=== PATIENT | female | born 1955 | race Caucasian/White ===

== ENCOUNTER 2023-03-29 13:54 | Outpatient (OUT) | payer MEDICARE, SELFPAY ==
--- NOTE | 2023-03-29 13:58 | MM_ITS ---
Patient: SHAUNA CHRISTENSEN Exam Date: 03/29/2023 : 1955 Gender:F Ordering : DR LASHA RODRIGUEZ Admission #: [id number] Family : Order #: [id number] CLICK HERE TO VIEW EXAM RADIOLOGY REPORT PROCEDURE: MM TOMOSYNTHESIS SCREENING BI COMPARISON: MG MAMM SCREEN 3D AMANDA CAD, 03/06/2022. MG MAMM SCREEN 3D AMANDA CAD, 01/21/2021. MG MAMM SCREEN AMANDA W CAD, 01/20/2020. MG MAMM AMANDA SCRN W CAD DIG, 09/29/2013. INDICATIONS: Screening Calculator Name NCI Breast Cancer Risk Assessment Tool 5 Year Breast Cancer Risk 3.60% Lifetime Breast Cancer Risk 10.90% Personal Breast Cancer No Personal Ovarian Cancer No Treatments None Family Cancers Mother with hodgkins cancer at age 34. LOCATION: [facility] BREAST COMPOSITION: Heterogeneously dense,which may obscure small masses. FINDINGS: DIAGNOSTIC CATEGORY 2--BENIGN FINDING: RIGHT BREAST: No significant suspicious finding. Scattered benign-appearing calcifications are present. No significant change has occurred. LEFT BREAST: No significant suspicious finding. Scattered benign-appearing calcifications are present. No significant change has occurred. RECOMMENDATIONS: ROUTINE MAMMOGRAM AND CLINICAL EVALUATION IN 12 MONTHS. PLEASE NOTE: A NORMAL MAMMOGRAM DOES NOT EXCLUDE THE POSSIBILITY OF BREAST CANCER. A CLINICALLY SUSPICIOUS PALPABLE LUMP SHOULD BE BIOPSIED. Dictated by: Philip Best M.D. on 04/02/2023 at 13:29 Approved by: Philip Best M.D. on 04/02/2023 at 13:35
== END 2023-03-29 13:55 | disposition home or self-care (01) ==
LOC: MAMMO 13:54
PROVIDERS: PCP Family Medicine; Visit Provider Family Medicine
DX: Z12.31 Encounter for screening mammogram for malignant neoplasm of breast (principal); Z80.7 Family history of other malignant neoplasms of lymphoid, hematopoietic and related tissues
CPT/HCPCS: 77063; 77067

== ENCOUNTER 2024-01-16 09:48 | Emergency (ER) | payer MEDICARE, SELFPAY ==
[2024-01-16 09:51] VITALS: BP 148/86; PULSE 65; TEMP 36.6; O2SAT 98; BMI 32.9
--- NOTE | 2024-01-16 09:56 | ED.GENADUL1 ---
HPI HPI - General Adult General Chief complaint: Skin/Abscess/Foreign Body Stated complaint: RASH Time Seen by Provider: 01/16/24 09:48 Source: patient Mode of arrival: walk-in Limitations: no limitations History of Present Illness HPI narrative: Patient presents to ED for swollen eyes and a rash on the face which is itchy. Patient states she was weeding over the weekend on Sunday afternoon and then Sunday night started to get itchy on the left hand and then face. When she woke up Sunday she noticed a little rash on her face and some redness and then today got more swollen. She went to urgent care and they were concerned because it was around her eyes so they sent over to the emergency room for further evaluation. She has no visual changes at all. She does have some periorbital swelling from a histamine response. They already treated her with IM Kenalog at the urgent care and then sent her here for evaluation. She did notice a little itching and swelling to the left upper lip today but no tongue swelling no posterior pharynx swelling. Patient does not wheezing. 98% on room air no acute distress Related Data Previous Rx's ?Medication ?Instructions ?Recorded prednisone 20 mg tablet 20 mg PO BID #20 tabs 01/16/24 Allergies Allergy/AdvReac Type Severity Reaction Status Date / Time No Known Drug Allergies Allergy Verified 01/16/24 09:56 Opioid HPI Opioid Management Most Recent Opioid Data: No Data to Display Review of Systems ROS Status of ROS 10 or more systems reviewed and unremarkable except as noted in history and below Exam Narrative Exam Narrative: General: alert, no acute distress Cardiovascular: regular rate and rhythm, normal peripheral perfusion. Respiratory: Lungs CTA, respirations non labored. Extremities: no deformity, no trauma. Neurological: oriented x 4, LOC appropriate for age. Periorbital edema bilaterally with erythema and itchiness to the skin. Small area of erythema to the left wrist and hand.Extraocular movements intact no vision changes Constitutional Vital Signs, click to edit/add: Last Vital Signs Temp 97.8 F 01/16/24 09:51 Pulse 65 01/16/24 09:51 Resp 16 01/16/24 09:51 BP 148/86 H 01/16/24 09:51 Pulse Ox 98 01/16/24 09:51 O2 Del Method Room Air 01/16/24 09:51 Course Vital Signs Vital signs: Vital Signs Temperature 97.8 F 01/16/24 09:51 Pulse Rate 65 01/16/24 09:51 Respiratory Rate 16 01/16/24 09:51 Blood Pressure 148/86 H 01/16/24 09:51 Pulse Oximetry 98 01/16/24 09:51 Oxygen Delivery Method Room Air 01/16/24 09:51 Temperature 97.8 F 01/16/24 09:51 Pulse Rate 65 01/16/24 09:51 Respiratory Rate 16 01/16/24 09:51 Blood Pressure 148/86 H 01/16/24 09:51 Pulse Oximetry 98 01/16/24 09:51 Oxygen Delivery Method Room Air 01/16/24 09:51 Medical Decision Making MDM Narrative Medical decision making narrative: Patient states her daughter thinks that they were weeding some poison prema so this could be poison prema exposure although it does not look like classic poison prema. She was exposed to something that gave her an allergic type response. I will send steroids to her pharmacy for a taper. Return to ED if worsening symptoms shortness of breath tongue swelling lip swelling or any further concerns. Patient comfortable care plan for home Differential Diagnosis Differential Diagnosis: Poison prema, poison oak, allergic reaction, contact dermatitis Discharge Plan Discharge Stand Alone Forms: Portal Instructions Chief Complaint: Skin/Abscess/Foreign Body Clinical Impression: Contact dermatitis Patient Disposition: Home, Self-Care Time of Disposition Decision: 10:00 Condition: Good Mode of Transportation: Private Vehicle Prescriptions / Home Meds: New prednisone 20 mg tablet 20 mg PO BID Qty: 20 0RF Rx Instructions: SEE TAPER: 60 mg po daily x 2 days 50 mg x 2 days 40 mg x 2 days 30 mg x 2 days 20 mg x 2 days 10 mg x 2 days Print Language: [place] Zealander Instructions: Contact Dermatitis (ED) Referrals: LASHA RODRIGUEZ [Primary Care Provider] - 1 week
--- NOTE | 2024-01-16 10:01 | PC.NURSE ---
pt did some weeding over the weekend -- sunday woke up with some itchy bilat hands and face. woke up this am with eyes both very itchy and swollen and red. UC sent her here for steroid.
--- OUTSIDE RECORDS SUMMARY | 2024-01-16 10:15 | XMS_ITS | CCD ---
Author Organization [facility] CliniSywy Care Team Providers Care Facility Environmental Technician Name Role Phone LynetteloPedro french DO Primary Care Provider Ramses ANTUNEZ, Gabo Muhammad Unavailable Mayank Velasquez MD, V. Attending Unavailable Mayank Velasquez MD, V. Admitting Unavailable JENNIFER, PEDRO Ayoub Primary Care Unavailable Taryn Dobson Unavailable AUGUSTIN VITAL Attending Unavailable AUGUSTIN VITAL Referring Unavailable JENNIFER, PEDRO HERNANDES Primary Care Unavailab le JENNIFER, PEDRO HERNANDES Primary Care Unavailab AUGUSTIN Lopes Attending Unavailable LYNETTELOKARISSA, PEDRO HERNANDES Primary Care Unavailab le JENNIFER, PEDRO HERNANDES Referring Unavailab le JENNIFER, PEDRO HERNANDES Primary Care Unavailab rossi VITAL, DR VILLANUEVA Consulting Unavailable LYNETTELOKARISSA, DR PEDRO Ayoub Primary Care Unavailable SEEMA, DR VILLANUEVA Attending Unavailable SEEMA, DR VILLANUEVA Admitting Unavailable CARLEE, WERNER Admitting Unavailable WERNER BEJARANO Attending Unavailable JENNIFER, DR PEDRO Ayoub Primary Care Unavailable EVA, DR MAYANK Castillo Consulting Unavailable CARLEEWERNER CHENEY Consulting Unavailable EVA, DR MAYANK Castillo Consulting Unavailable FURLONG, DR PEDRO Ayoub Primary Care Unavailable EVA, DR MAYANK Castillo Attending Unavailable EVA, DR MAYANK Castillo Admitting Unavailable FURLONG, DR PEDRO Ayoub Admitting Unavailable FURLONG, DR PEDRO Ayoub Attending Unavailable FURLOKARISSA, DR PEDRO Ayoub Primary Care Unavailable FURLONG, DR PEDRO Ayoub Consulting Unavailable FURLONG, DR PEDRO Ayoub Consulting Unavailable FURLONG, DR PEDRO Ayoub Primary Care Unavailable FURLONG, DR PEDRO Ayoub Attending Unavailable JENNIFER, DR PEDRO Ayoub Admitting Unavailable EVA, DR MAYANK Castillo Consulting Unavailable JENNIFER, DR PEDRO Ayoub Primary Care Unavailable EVA, DR MAYANK Castillo Attending Unavailable EVA, DR MAYANK Castillo Admitting Unavailable CARLEE, WERNER Admitting Unavailable CARLEE, WERNER Attending Unavailable FURLONG, DR PEDRO Ayoub Primary Care Unavailable BARRERA, ALTON Consulting Unavailable CARLEE, WERNER Consulting Unavailable WEST, DR MAYANK Castillo Consulting Unavailable FURLONG, DR PEDRO Ayoub Primary Care Unavailable WEST, DR MAYANK Castillo Attending Unavailable WEST, DR MAYANK Castillo Admitting Unavailable WEST, DR MAYANK Castillo Admitting Unavailable WEST, DR MAYANK Castillo Attending Unavailable FURLONG, DR PEDRO Ayoub Primary Care Unavailable WEST, DR MAYANK Castillo Consulting Unavailable ZIEBER, DR CANDICE Deluca Consulting Unavailable WEST, DR MAYANK Castillo Admitting Unavailable WEST, DR MAYANK Castillo Attending Unavailable FURLONG, DR PEDRO Ayoub Primary Care Unavailable WEST, DR MAYANK Castillo Consulting Unavailable WEST, DR MAYANK Castillo Admitting Unavailable WEST, DR MAYANK Castillo Attending Unavailable FURLONG, DR PEDRO Ayoub Primary Care Unavailable WEST, DR MAYANK Castillo Consulting Unavailable WEST, DR MAYANK Castillo Admitting Unavailable WEST, DR MAYANK Castillo Attending Unavailable FURLONG, DR PEDRO Ayoub Primary Care Unavailable WEST, DR MAYANK Castillo Consulting Unavailable ZIEBER, DR CANDICE Deluca Consulting Unavailable WEST, DR MAYANK Castillo Consulting Unavailable FURLONG, DR PEDRO Ayoub Primary Care Unavailable WEST, DR MAYANK Castillo Attending Unavailable WEST, DR MAYANK Castillo Admcarlos Unavailable ZIEBER, DR CANDICE Deluca Consulting Unavailable WEST, DR MAYANK Castillo Consulting Unavailable FURLONG, DR PEDRO Ayoub Primary Care Unavailable WEST, DR MAYANK Castillo Attending Unavailable WEST, DR MAYANK Castillo Admcarlos Unavailable WEST, DR MAYANK Castillo Consulting Unavailable FURLONG, DR PEDRO Ayoub Primary Care Unavailable WEST, DR MAYANK Castillo Attending Unavailable WEST, DR MAYANK Castillo Admcarlos Unavailable WEST, DR MAYANK Castillo Consulting Unavailable FURLONG, DR PEDRO Ayoub Primary Care Unavailable WEST, DR MAYANK Castillo Attending Unavailable WEST, DR MAYANK Castillo Admcarlos Unavailable WEST, DR MAYANK Castillo Admitting Unavailable WEST, DR MAYANK Castillo Attending Unavailable FURLONG, DR PEDRO Ayoub Primary Care Unavailable WEST, DR MAYANK Castillo Consulting Unavailable FURLONG, DR PEDRO Ayoub Admitting Unavailable FURLONG, DR PEDRO Ayoub Attending Unavailable FURLONG, DR PEDRO Ayoub Primary Care Unavailable FURLONG, DR PEDRO Ayoub Consulting Unavailable WEST, DR MAYANK Castillo Consulting Unavailable FURLONG, DR PEDRO Ayoub Primary Care Unavailable WEST, DR MAYANK Castillo Attending Unavailable WEST, DR MAYANK Castillo Admitting Unavailable ZIEBER, DR CANDICE Deluca Consulting Unavailable SCOTT Dobson Attending Provider [phone] Taryn Dobson Admitting Unavailable Taryn Dobson Attending Unavailable Taryn Dobson Attending Unavailable Taryn Dobson Admitting Unavailable Furlong Pedro MONROY Primary Care Provider [phone] Pedro Herrera MD Primary Care Provider JANELLE AUGUSTE Referring Unavailable FURLONG, PEDRO G Primary Care Unavailable FURLONG, PEDRO G Referring Unavailable FURLONG, PEDRO G Primary Care Unavailable FURLONG, PEDRO G Attending Unavailable FURLONG, PEDRO G Referring Unavailable FURLONG, PEDRO G Primary Care Unavailable FURLONG, PEDRO G Attending Unavailable FURLONG, PEDRO G Referring Unavailable FURLONG, PEDRO G Primary Care Unavailable JANELLE AUGUSTE Attending Unavailable FURLONG, PEDRO G Referring Unavailable FURLONG, PEDRO G Primary Care Unavailable TARYN BELL Attending Unavailable JR. VERA, KRISHNA Venegas Referring Unavaila ble TARYN BELL Attending Unavailable JR. VERA, KRISHNA Venegas Referring Unavaila ble TARYN BELL Attending Unavailable JR. VERA, KRISHNA Venegas Referring Unavaila ble TARYN BELL Attending Unavailable JR. VERA, KRISHNA Venegas Referring Unavaila ble TARYN BELL Attending Unavailable JR. VERA, KRISHNA Venegas Referring Unavaila ble JR. VERA, KRISHNA Venegas Attending Unavaila ble TARYN BELL Attending Unavailable JR. VERA, KRISHNA Venegas Referring Unavaila ble TARYN BELL Attending Unavailable JR. VERA, KRISHNA Venegas Referring Unavaila ble TARYN BELL Attending Unavailable JR. VERA, KRISHNA Venegas Referring Unavaila ble TOM HUERTA Attending Unavailable JR. VERA, KRISHNA Venegas Attending Unavaila ble TARYN BELL Attending Unavailable JR. VERA, KRISHNA Venegas Referring Unavaila ble JR. VERA, KRISHNA Venegas Attending Unavaila TARYN Islas Attending Unavailable JR. VERA, KRISHNA Venegas Referring Unavaila ble JR. VERA, KRISHNA Venegas Attending Unavaila ble TARYN BELL Attending Unavailable JR. VERA, KRISHNA Venegas Referring Unavaila ble Medications Current Medications Medication Drug Class(es) Dates Sig (Normalized) Sig (Original) aspirin 81 mg delayed release oral tablet (8 sources) Platelet Aggregation Inhibitor, Nonsteroidal Anti-inflammatory Drug take 1 tablet by mouth in the morning aspirin 81 MG EC tablet Take 81 mg by mouth in the morning. 0 Active take 81 mg by mouth once daily a spirin (ASPIR-81 ORAL) Take 81 mg by mouth once daily. 0 Active Comment on above: Take 81 mg by mouth once daily. atorvastatin 20 mg oral tablet (18 sources) HMG-CoA Reductase Inhibitor Start: take 20 mg by mouth once daily Atorvastatin Active 20 MG PO Daily January 16, 2024 12:00am Start: 04-17-2023 take 1 tablet by lovely th in the morning atorvastatin (LIPITOR) 20 mg tablet Take 1 tablet (20 mg total) by mouth in the morning. 90 tablet 3 04/17/2023 Active Start: 06-06-2022 take 1 tablet by lovely th in the morning atorvastatin (Lipitor) 10 MG tablet Take 1 tablet by mouth in the morning. 0 06/06/2022 Active Lipitor Active biotin 10 mg oral capsule (17 sources) biotin 10,000 mc g capsule 1 capsule. 0 Active biotin 29565 MCG tablet 1 capsule 1 (one) time each day at the same time. 0 Active Biotin Active Comment on above: 1 capsule. Calcium Carbonate (4 sources) Calcium Carbonat e (CALCIUM 600 PO) Take by mouth. 0 Active calcium citrate 950 mg oral tablet (13 sources) take 1 tablet by lovely th three times daily calcium citrate (CALCITRATE) 200 mg (950 mg) tablet Take 1 tablet (200 mg total) by mouth 3 (three) times a day. 0 Active Calcium Citrate Active Centrum Silver (5 sources) Centrum Silver A ctive cholecalciferol 0.25 mg oral capsule (12 sources) Vitamin D cholecalciferol (VITAMIN D3) 250 mcg (10,000 unit) capsule Take 1 capsule (10,000 Units total) by mouth. 0 Active take 1 capsule by mouth in the m orning cholecalciferol (Vitamin D-3) 350 MCG (80275 UT) capsule Take 14,000 Units by mouth in the morning. 0 Active Comment on above: Take 10,000 Units by mouth. ferrous sulfate 325 mg oral tablet (13 sources) Start: 01-16-2024 take 1 tablet by mouth once daily Ferrous Sulfate (Feosol) 325 mg (65 mg iron) tablet Active 325 MG PO Daily January 16, 2024 12:00am Start: 06-15-2022 take 1 tablet by lovely th at mealtime ferrous sulfate 325 (65 Fe) MG tablet Take 325 mg by mouth in the morning. Take with meals. 0 06/15/2022 Active Start: 06-15-2022 take 1 tablet by lovely th once daily at breakfast FEROSUL 325 mg (65 mg iron) tablet Take 1 tablet by mouth daily with breakfast. 0 06/15/2022 Active take 1 tablet by lovely th once daily at breakfast ferrous sulfate 325 (65 FE) mg EC tablet Take 1 tablet (325 mg total) by mouth daily with breakfast. 0 Active Comment on above: Take 1 tablet by lovely th daily with breakfast. Iron (5 sources) Iron Active levothyroxine sodium 0.05 mg oral tablet (20 sources) l-Thyroxine Start: take 50 ug by mouth once daily Levothyroxine Active 50 MCG PO Daily January 16, 2024 12:00am Start: 05-06-2022 End: 08-28-2023 take 1 tablet by mouth in the morning levothyroxine (SYNTHROID, LEVOTHROID) 50 MCG tablet TAKE 1 TABLET BY MOUTH IN THE MORNING 90 tablet 2 08/28/2023 Active Levothyroxine So dium Active metFORMIN hydrochloride 500 mg oral tablet (18 sources) Biguanide Start: 01-16-2024 take 500 mg by mouth once daily Metformin Active 500 MG PO Daily January 16, 2024 12:00am Start: 11-28-2022 take 1 tablet by lovely th once daily metFORMIN (GLUCOPHAGE) 500 mg tablet TAKE 1 TABLET BY MOUTH ONCE DAILY 90 tablet 3 06/14/2023 Active Start: 06-06-2022 metFORMIN (GLU COPHAGE) 500 mg tablet metFORMIN HCl Ac tive eiiebqoa-vhk-ZM-lycopen-lute in (CENTRUM SILVER) 0.4 mg-300 mcg- 250 mcg tablet (3 sources) mdqeaeck-hqf-BZ- lycopen-lutein (CENTRUM SILVER) 0.4 mg-300 mcg- 250 mcg tablet See Admin Instructions. 0 Active iwwepsdlzlvv-lihq-kbxcxdip-f liya c acid (Centrum Silver, geriatric,) tablet (4 sources) multivitamin-iro i-sibkngfr-brmm c acid (Centrum Silver, geriatric,) tablet as directed Orally 0 Active nitrofurantoin, macrocrystal s 25 mg / nitrofurantoin, monohydrate 75 mg oral capsule (7 sources) Nitrofuran Antibacterial S t a r t : 0 5 - 0 3 - 2 0 2 3 take 1 capsule by mouth every twelve hours Macrobid 100 MG 1 cap(s) Orally bid for 5 day(s) Apr, Active 24 hr oxybutynin chloride 15 mg extended release oral tablet (18 sources) Cholinergic Muscarinic Antagonist S t a r t : 0 8 - 1 4 - 2 0 2 4 take 15 mg by mouth once daily Oxybutynin Chloride Active 15 MG PO Daily January 16, 2024 12:00am Start: 10-20-2022 oxybutynin XL (DITROPAN XL) 15 mg 24 hr tablet TAKE 1 TABLET TWICE A DAY 180 tablet 3 10/20/2022 Active Start: 05-06-2022 oxybutynin ER (DITROPAN XL) 15 mg 24 hr Extended Rel Tab oxybutynin XL (D itropan-XL) 15 MG 24 hr tablet 1 (one) time each day at the same time. 0 Active oxyBUTYnin Activ e Oxybutynin Activ e vitamin b12 0.1 mg oral tablet (8 sources) Vitamin B12 take 1 tablet by mouth in the morning cyanocobalamin (VITAMIN B-12) 100 MCG tablet Take 1 tablet (100 mcg total) by mouth in the morning. 0 Active Comment on above: Take 100 mcg by mout h. Vitamin D3 (5 sources) Vitamin D3 Activ e Completed/Discontinued Medications Medication Drug Class(es) Dates Sig (Normalized) Sig (Original) azithromycin 250 mg oral tablet (5 sources) Macrolide Antimicrobial Start: 04-24-2022 Azithromycin 250 MG 2 tablet on the first day, then 1 tablet daily for 4 days Orally Once a day for 5 day(s) Apr, Not-Taking MV with Xkh-Dzhkirpy-Gfktmc (CENTRUM SILVER) 0.4 mg-300 mcg- 250 mcg tab (5 sources) MV with Jvy-Vhykfkno-Mnyo in (CENTRUM SILVER) 0.4 mg-300 mcg- 250 mcg tab See Admin Instructions. 0 Active Comment on above: See Admin Instructio ns. phenazopyridine hydrochloride 200 mg oral tablet (5 sources) Start: 10-04-2022 take 1 tablet by mouth every eight hours Pyridium 200 MG 1 tablet after meals Orally Three times a day for 2 day(s) October, Not-Taking predniSONE 20 mg oral tablet (5 sources) Start: 04-24-2022 take 1 tablet by mouth every twelve hours predniSONE 20 MG 1 tablet Orally 2 times a day for 5 day(s) Apr, Not-Taking Problems Active Problems Problem Classification Problem Date Documented Da te Episodic/Chronic Congestive heart failure; nonhypertensive (7 sources) Chronic diastolic heart failure; Translations: [Chronic diastolic (congestive) heart failure] Onset: 07-21-2015 04-13-2023 Chronic Deficiency and other anemia (5 sources) Iron deficiency anemia, unspecified; Translations: [Iron deficiency anemia, unspecified iron deficiency anemia type] Onset: 08-31-2022 Episodic Developmental disorders (1 source) Developmental articulation disorder; 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 Disorders of lipid metabolism (15 sources) Hyperlipidemia, unspecified; Translations: [Mixed hyperlipidemia] Onset: 08-25-2021 Chronic Essential hypertension (1 source) Hypertensive disorder Onset: 10-10-2023 Chronic Genitourinary symptoms and ill-defined conditions (14 sources) Urinary incontinence; Translations: [Unspecified urinary incontinence] Onset: 07-21-2015 02-07-2022 Chronic Genitourinary symptoms and ill-defined conditions (9 sources) Dysuria; Translations: [Hematuria, unspecified] Onset: 04-25-2023 Episodic Malaise and fatigue (11 sources) Fatigue; Translations: [Chronic fatigue, unspecified] Onset: 06-06-2017 04-13-2023 Chronic Malaise and fatigue (1 source) Fatigue; Translations: [Other fatigue] 06-19-2023 Episodic Menopausal disorders (7 sources) Primary ovarian failure; Translations: [Other primary ovarian failure] Onset: 01-19-2020 02-07-2022 Chronic Nutritional deficiencies (7 sources) Vitamin D deficiency; Translations: [Vitamin D deficiency, unspecified] Onset: 01-20-2016 02-07-2022 Chronic Osteoarthritis (20 sources) Unspecified osteoarthritis, unspecified site; Translations: [Arthritis of right knee] Onset: 01-17-2018 02-07-2022 Chronic Other acquired deformities (7 sources) Contracture of joint of right ankle; Translations: [Contracture, right ankle] Onset: 03-01-2020 02-07-2022 Chronic Other connective tissue disease (8 sources) History of total knee arthroplasty; Translations: [Presence of right artificial knee joint] Onset: 02-12-2023 04-13-2023 Chronic Other connective tissue disease (2 sources) History of right total knee replacement; Translations: [Presence of right artificial knee joint] 07-04-2023 Chronic Other diseases of veins and lymphatics (3 sources) Lymphedema; Translations: [Lymphedema, not elsewhere classified] Onset: 01-11-2023 01-11-2023 Chronic Other endocrine disorders (1 source) Diabetes insipidus; Translations: [Diabetes insipidus] 06-19-2023 Chronic Other endocrine disorders (2 sources) Diabetes insipidus; Translations: [Diabetes insipidus] Onset: 06-19-2023 Chronic Other inflammatory condition of skin (7 sources) Rosacea; Translations: [Rosacea, unspecified] Onset: 07-21-2015 02-07-2022 Chronic Other nervous system disorders (1 source) Poor concentration; Translations: [Attention and concentration deficit] 06-19-2023 Chronic Other nervous system disorders (7 sources) Mortons neuroma of right foot; Translations: [Lesion of plantar nerve, right lower limb] Onset: 12-18-2019 02-07-2022 Chronic Other nervous system disorders (7 sources) Difficulty walking; Translations: [Difficulty in walking, not elsewhere classified] Onset: 12-16-2020 02-07-2022 Chronic Other nutritional; endocrine; and metabolic disorders (7 sources) Insulin resistance; Translations: [Insulin resistance] Onset: 07-21-2015 02-07-2022 Chronic Other nutritional; endocrine; and metabolic disorders (3 sources) Hypocalcemia; Translations: [Hypocalcemia] Onset: 04-13-2023 04-13-2023 Chronic Other nutritional; endocrine; and metabolic disorders (7 sources) Body mass index 30+ - obesity; Translations: [Obesity, unspecified] Onset: 01-03-2023 04-13-2023 Chronic Residual codes; unclassified (7 sources) Obstructive sleep apnea syndrome; Translations: [Obstructive sleep apnea (adult) (pediatric)] Onset: 09-27-2017 02-07-2022 Chronic Residual codes; unclassified (1 source) Localized edema; Translations: [Localized edema] Onset: 10-10-2023 Episodic Thyroid disorders (9 sources) Hypothyroidism, unspecified; Translations: [Hypothyroidism] Onset: 02-01-2021 02-07-2022 Chronic Unclassified (1 source) brain fog. from surgery Onset: 06-19-2023 Urinary tract infections (5 sources) Urinary tract infection, site not specified; Translations: [Acute cystitis with hematuria] Episodic Past or Other Problems Problem Classification Problem Date Documented Da te Episodic/Chronic Deficiency and other anemia (10 sources) Iron deficiency anemia; Translations: [Iron deficiency anemia, unspecified] Onset: 1 Episodic Deficiency and other anemia (3 sources) Other iron deficiency anemias; Translations: [OTHER IRON DEFICIENCY ANEMIAS] Onset: 2 Episodic Diabetes mellitus without complication (15 sources) Prediabetes; Translations: [Hyperglycemia, unspecified] Onset: 1 02-07-2022 Episodic Fluid and electrolyte disorders (4 sources) Hyperosmolality and hypernatremia; Translations: [HYPEROSMOLALITY AND HYPERNATREMIA] Onset: 2 Episodic Mood disorders (3 sources) Mood disorders Onset: 4 06-19-2023 Other aftercare (4 sources) Long-term current use of insulin; 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] Onset: 9 01-03-2023 Episodic Other bone disease and musculoskeletal deformities (7 sources) Osteopenia; Translations: [Other specified disorders of bone density and structure, unspecified site] Onset: 1 02-07-2022 Episodic Other bone disease and musculoskeletal deformities (1 source) Other specified disorders of bone density and structure, unspecified site; Translations: [Other specified disorders of bone density and structure, unspecified site] Onset: 2 Episodic Other diseases of veins and lymphatics (7 sources) Peripheral venous insufficiency; Translations: [Venous insufficiency (chronic) (peripheral)] Onset: 6 02-07-2022 Episodic Other lower respiratory disease (4 sources) Dyspnea, unspecified; Translations: [DYSPNEA UNSPECIFIED] Onset: 2 Episodic Other non-traumatic joint disorders (9 sources) Pain in right knee; Translations: [Pain in joint, lower leg] Onset: 7 02-07-2022 Episodic Other non-traumatic joint disorders (7 sources) Pain in lower limb; Translations: [Pain in unspecified knee] Onset: 7 04-13-2023 Episodic Other screening for suspected conditions (not mental disorders or infectious disease) (4 sources) Encounter for screening mammogram for malignant neoplasm of breast; Translations: [ENC SCR MAMMO MALIG NEOPLASM BREAST] Onset: 2 Episodic Phlebitis; thrombophlebitis and thromboembolism (4 sources) Phlebitis and thrombophlebitis of superficial vessels of right lower extremity; Translations: [PHLEBITIS AND TP SUP VES RT LOW EXT] Onset: 2 Episodic Residual codes; unclassified (1 source) Family history of other malignant neoplasms of lymphoid, hematopoietic and related tissues; Translations: [FAM HX OTH MAL SHANIQUA LYMPH HEMATPOETC] Onset: 2 Episodic Residual codes; unclassified (7 sources) Edema of foot; Translations: [Localized edema] Onset: 1 02-07-2022 Episodic Residual codes; unclassified (7 sources) Persistent insomnia; Translations: [Insomnia, unspecified] Onset: 1 04-13-2023 Episodic Residual codes; unclassified (3 sources) Sleep disorder; Translations: [Sleep disorder, unspecified] Onset: 6 02-07-2022 Episodic Residual codes; unclassified (4 sources) Insomnia; Translations: [Insomnia, unspecified] Onset: 1 01-03-2023 Episodic Unclassified (3 sources) Onset: 3 04-13-2023 Varicose veins of lower extremity (4 sources) Varicose veins of bilateral lower extremities with pain; Translations: [VARICOSE VNS AMANDA LOW EXTREM W/PAIN] Onset: 2 Episodic Results Test Name Value Interpretation Reference Range Facility COMPLETE BLOOD COUNTon 10-09 Erythrocyte distribution width (RBC) [Ratio] 15.3 % High 11.5-15.0 [facility] Comment on above: Performed By: #### F EPR, CBC, HA1C #### [facility] ([id number]) [address] [place] [address] Hematocrit (Bld) [Volume fraction] 35.7 % Normal 35-47 [facility] Comment on above: Performed By: #### F EPR, CBC, HA1C #### [facility] ([id number]) [address], [facility] [address] [place] [address] Hemoglobin (Bld) [Mass/Vol] 11.9 g/dL Normal 11.7-15.5 [facility] Comment on above: Performed By: #### F EPR, CBC, HA1C #### [facility] ([id number]) [address], [facility] [address] [place] [address] MCH (RBC) [Entitic mass] 28.4 pg Normal 27-34 [facility] Comment on above: Performed By: #### F EPR, CBC, HA1C #### [facility] ([id number]) [address], [facility] [address] [place] [address] MCHC (RBC) [Mass/Vol] 33.3 g/dL Normal 32-36 [facility] Comment on above: Performed By: #### F EPR, CBC, HA1C #### [facility] ([id number]) [address], [facility] [address] [place] [address] MCV (RBC) [Entitic vol] 85 fL Normal 80-100 [facility] Comment on above: Performed By: #### F EPR, CBC, HA1C #### [facility] ([id number]) [address] [address] [place] [address] Platelet mean volume (Bld) [Entitic vol] 8.8 fL Normal 7-12 [facility] Comment on above: Performed By: #### F EPR, CBC, HA1C #### [facility] ([id number]) [address], [facility] [address] [place] [address] Platelets (Bld) [#/Vol] 312 10*3/uL Normal 150-450 [facility] Comment on above: Performed By: #### F EPR, CBC, HA1C #### [facility] ([id number]) [address], [address] [place] [address] RBC COUNT 4.20 X10E12/L Normal 3.80-5.20 [facility] Comment on above: Performed By: #### F EPR, CBC, HA1C #### [facility] ([id number]) [address], [address] [place] [address] WBC (Bld) [#/Vol] 5.0 10*3/uL Normal 4.0-11.0 [facility] Comment on above: Performed By: #### F EPR, CBC, HA1C #### [facility] ([id number]) [address], [address] [place] [address] COMPREHENSIVE METABOLIC PANE [place] 10-10-2023 Albumin [Mass/Vol] 4.0 g/dL Normal 3.2-5.3 [facility] Comment on above: Performed By: #### C PATRICE, [id number] #### [facility] ([id number]) [address], [address] [place] [address] ALP [Catalytic activity/Vol] 85 U/L Normal 39-130 [facility] Comment on above: Performed By: #### Rubi IBRAHIM, [id number] #### [facility] ([id number]) [address], [address] [place] [address] ALT [Catalytic activity/Vol] 20 U/L Normal 0-31 [facility] Comment on above: Performed By: #### Rubi IBRAHIM, [id number] #### [facility] ([id number]) [address], [address] [place] [address] Anion gap [Moles/Vol] 9 mmol/L Normal 5-15 [facility] Comment on above: Performed By: #### Rubi IBRAHIM, [id number] #### [facility] ([id number]) [address], [address] [place] [address] AST [Catalytic activity/Vol] 24 U/L Normal 0-41 [facility] [facility] Comment on above: Performed By: #### Rubi IBRAHIM, 73587-7 #### [facility] ([id number]) [address], [address] [place] [address] Bilirubin [Mass/Vol] 0.6 mg/dL Normal 0.3-1.2 [facility] Comment on above: Performed By: #### Rubi IBRAHIM, 24440-0 #### [facility] ([id number]) [address], [address] [place] [address] Calcium [Mass/Vol] 9.4 mg/dL Normal 8.5-10.5 [facility] Comment on above: Performed By: #### Rubi IBRAHIM, 83892-9 #### [facility] ([id number]) [address], [address] [place] [address] Chloride [Moles/Vol] 107 mmol/L Normal 98-109 [facility] Comment on above: Performed By: #### Rubi IBRAHIM, 40939-9 #### [facility] ([id number]) [address], [address] [place] [address] CO2 [Moles/Vol] 27 mmol/L Normal 22-32 [facility] Comment on above: Performed By: #### Rubi IBRAHIM, 17910-3 #### [facility] ([id number]) [address], [address] [place] [address] Creatinine [Mass/Vol] 0.80 mg/dL Normal 0.40-1.00 [facility] Comment on above: Result Comment: METH OD TRACEABLE TO IDMS STANDARD Performed By: #### Rubi IBRAHIM, 99571-2 #### [facility] ([id number]) [address] [place] [address] GFR/1.73 sq M.predicted among non-blacks MDRD (S/P/Bld) [Vol rate/Area] 80 mL/min/{1.73_m2} Normal >59 [facility] Comment on above: Result Comment: Reported eGFR is based on the CKD-EPI 2020 equation that does not use a race coefficient. Performed By: #### Rubi IBRAHIM, 81293-3 #### [facility] ([id number]) [address] [address] [place] [address] Glucose [Mass/Vol] 86 mg/dL Normal 65-99 [facility] Comment on above: Performed By: #### Rubi IBRAHIM, 65808-2 #### [facility] ([id number]) [address] [address] Potassium [Moles/Vol] 4.2 mmol/L Normal 3.5-5.0 [facility] Comment on above: Performed By: #### Rubi IBRAHIM, 28809-6 #### [facility] ([id number]) [address] [place] [address] Protein [Mass/Vol] 6.8 g/dL Normal 6.0-8.0 [facility] Comment on above: Performed By: #### Rubi IBRAHIM, 70014-2 #### [facility] ([id number]) [address] [place] [address] Sodium [Moles/Vol] 143 mmol/L Normal 134-146 [facility] Comment on above: Performed By: #### Rubi IBRAHIM, 87688-7 #### [facility] ([id number]) [address] [place] [address] Urea nitrogen [Mass/Vol] 17 mg/dL Normal 5-27 [facility] Comment on above: Performed By: #### Rubi IBRAHIM, 26049-5 #### [facility] ([id number]) [address] [place] [address] HGB A1C (GLYCO-HGB)on 2023 Glucose [Mass/Vol] 105 mg/dL Normal [facility] Comment on above: Performed By: #### F EPR, CBC, HA1C #### [facility] ([id number]) [address], [facility] [address] [place] [address] HbA1c (Bld) [Mass fraction] 5.3 % Normal 4.4-5.6 [facility] Comment on above: Result Comment: NOTE ADA Guidelines Result HgbA1c Normal : less than 5.7 % Prediabetes : 5.7 % to 6.4 % Diabetes : > 6.4 % Use with caution in patients with abnormal hemoglobin variants as the half-life of red blood cells and in vivo glycation rates are affected. Performed By: #### F EPR, CBC, HA1C #### [facility] ([id number]) [address] [address] IRON PROFILEon 10-10-2023 Iron [Mass/Vol] 27 ug/dL Low 50-170 [facility] Comment on above: Performed By: #### F EPR, CBC, HA1C #### [facility] ([id number]) [address], [facility] [address] [place] [address] IRON BINDING 395 ug/dL Normal 250-425 [facility] Comment on above: Performed By: #### F EPR, CBC, HA1C #### [facility] ([id number]) [address] [address] [place] [address] IRON SATURATION 7 % SATURATION Low 15-50 [facility] Comment on above: Performed By: #### F EPR, CBC, HA1C #### [facility] ([id number]) [address] [place] [address] Lipid 1996 panelon 05-08-202 4 Cholesterol [Mass/Vol] 129 mg/dL Low 150-200 [facility] Comment on above: Performed By: #### Rubi IBRAHIM, 73402-1 #### [facility] ([id number]) [address], [address] [address] Cholesterol in HDL [Mass/Vol] 50 mg/dL Normal >39 [facility] Comment on above: Result Comment: HDL <40 mg/dL - High Risk HDL > or = 40mg/dL- Desirable HDL >60 mg/dL - Negative Risk Performed By: #### Rubi IBRAHIM, 03992-4 #### [facility] ([id number]) [address] [address] Cholesterol in LDL [Mass/Vol] 55 mg/dL Normal <130 [facility] Comment on above: Result Comment: LDL <100 mg/dL - Desirable LDL >160 mg/dL - High Risk Performed By: #### Rubi IBRAHIM, 84573-8 #### [facility] ([id number]) [address], [address] [address] Cholesterol in VLDL [Mass/Vol] 24 mg/dL Normal 0-30 [facility] Comment on above: Performed By: #### Rubi IBRAHIM, 44250-6 #### [facility] ([id number]) [address] [address] CHOLESTEROL:HDL 2.6 Normal 1.0-5.0 [facility] Comment on above: Performed By: #### Rubi IBRAHIM, 42654-5 #### [facility] ([id number]) [address] [place] [address] Triglyceride [Mass/Vol] 122 mg/dL Normal 27-150 [facility] Comment on above: Performed By: #### C , 60073-8 #### [facility] ([id number]) [address], [address] [place] [address] BASIC METABOLIC PANLon 07-17 Anion gap [Moles/Vol] 7 mmol/L Normal 5-15 [facility] Comment on above: Performed By: #### 2 692-2, BMP #### [facility] ([id number]) [address] [place] [address] Calcium [Mass/Vol] 9.4 mg/dL Normal 8.5-10.5 [facility] Comment on above: Performed By: #### 2 692-2, BMP #### [facility] ([id number]) [address], [address] [place] [address] Chloride [Moles/Vol] 108 mmol/L Normal 98-109 [facility] Comment on above: Performed By: #### 2 692-2, BMP #### [facility] ([id number]) [address], [address] [place] [address] CO2 [Moles/Vol] 29 mmol/L Normal 22-32 [facility] Comment on above: Performed By: #### 2 692-2, BMP #### [facility] ([id number]) [address], [address] [place] [address] Creatinine [Mass/Vol] 0.75 mg/dL Normal 0.40-1.00 [facility] Comment on above: Result Comment: METH OD TRACEABLE TO IDMS STANDARD Performed By: #### 2 692-2, BMP #### [facility] ([id number]) [address], [address] [place] [address] GFR/1.73 sq M.predicted among non-blacks MDRD (S/P/Bld) [Vol rate/Area] 86 mL/min/{1.73_m2} Normal >59 [facility] Comment on above: Result Comment: Reported eGFR is based on the CKD-EPI 2020 equation that does not use a race coefficient. Performed By: #### 2 692-2, BMP #### [facility] ([id number]) [address], [address] [place] [address] Glucose [Mass/Vol] 81 mg/dL Normal 65-99 [facility] Comment on above: Performed By: #### 2 692-2, BMP #### [facility] ([id number]) [address], [address] [place] [address] Potassium [Moles/Vol] 4.0 mmol/L Normal 3.5-5.0 [facility] Comment on above: Performed By: #### 2 692-2, BMP #### [facility] ([id number]) [address], [address] [place] [address] Sodium [Moles/Vol] 144 mmol/L Normal 134-146 [facility] Comment on above: Performed By: #### 2 692-2, BMP #### [facility] ([id number]) [address], [address] [place] [address] Urea nitrogen [Mass/Vol] 26 mg/dL Normal 5-27 [facility] Comment on above: Performed By: #### 2 692-2, BMP #### [facility] ([id number]) [address], [address] [place] [address] Osmolality (U) [Osmolality]o n 07-17-2023 URINE OSMOLALITY 806 mOsm/kg H2 Normal 300-1300 [facility] Comment on above: Performed By: #### 2 695-5 #### [facility] ([id number]) [address], [address] [place] [address] Osmolality [Osmolality]on OSMOLALITY 304 mOsm/kg H2 High 280-300 [facility] Comment on above: Performed By: #### 2 692-2, [facility] #### [facility] ([id number]) [address] [facility], [address] [place] [address] URINALYSISon 07-17-2023 Bilirubin Ql (U) Negative Normal NEG [facility] BLOOD/HGB Negative Normal NEG [facility] CA OXALATE CRYSTALS PRESENT Abnormal NONE [facility] Color (U) YELLOW Normal YELLOW [facility] Glucose Ql (U) Negative Normal NEG [facility] Ketones Ql (U) Negative Normal NEG [facility] Leukocyte esterase Test strip Ql (U) Negative Normal NEG [facility] MUCOUS PRESENT Abnormal NONE [facility] Nitrite Ql (U) Negative Normal NEG [facility] pH (U) 6.0 [pH] Normal 5.0-8.5 [facility] Protein Ql (U) Trace Abnormal NEG [facility] R.B.CELLS 0 /hpf Normal 0-5 [facility] Specific gravity (U) [Rel density] 1.024 Normal 1.003-1.035 [facility] SQUAMOUS EPITHELIUM 1 /hpf Normal 0-5 [facility] TURBIDITY CLEAR Normal CLEAR [facility] Urobilinogen (U) [Mass/Vol] mg/dL Normal <1.1 [facility] W.B.CELLS 4 /hpf Normal 0-5 [facility] Urinalysis - AUTOMATEDon Appearance (U) cloudy [employer] Other Bilirubin Ql (U) Negative [employer] Other Color (U) dark yellow [employer] Other Glucose Ql (U) Negative [employer] Other Hemoglobin Ql (U) large [place] Other Ketones Ql (U) Negative [employer] Other Leukocyte esterase Test strip Ql (U) small [employer] Other Nitrite Ql (U) Negative [employer] Other pH (U) 6.5 [pH] [employer] Other Protein Ql (U) 100 [employer] Other Specific gravity (U) [Rel density] 1.025 [employer] Other Urobilinogen (U) [Mass/Vol] 0.2 mg/dL [employer] Other Urinalysis - AUTOMATED [employer] Other Urine Cultureon 04-25-2023 Urine Culture 50,000 [employer] Other Urine Culture <16 Susceptible [employer] Other Urine Culture <8/4 Susceptible [employer] Other Urine Culture <8 Susceptible [employer] Other Urine Culture <4 Susceptible [employer] Other Urine Culture <2 Susceptible [employer] Other Urine Culture <1 Susceptible [employer] Other Urine Culture <0.25 Susceptible [employer] Other Urine Culture <0.5 Susceptible [employer] Other Urine Culture <0.5/9.5 Susceptible [employer] Other Bacteria identified Cx Nom (U) Reason for Exam Dysuria Urine ORGANISM: Proteus mirabilis (O:PROMIR) [place] Count 50,000 Aerobic ANTONELLA Charge ([id number]) --- SUSCEPTIBILITY -- ORGANISM: O:PROMIR ANTIBIOTIC INTERPRETATION ANTONELLA Amikacin S <16 Amoxacillin/K Clavulanate S <8 Ampicillin S <8 Ampicillin/Sulbactam S <4 Aztreonam S <4 Cefazolin S <2 Cefepime S <2 Ceftazidime S <1 Ceftazidime/Avibactam S <4 Ceftolozane/Tazobactam S <2 Ceftriaxone S <1 Cefuroxime S <4 Ciprofloxacin S <0.25 Ertapenem S <0.5 Gentamicin S <2 Levofloxacin S <0.5 Meropenem S <1 Meropenem/Vaborbactam S <2 Piperacillin/Tazobacta m S <8 Tobramycin S <2 Trimethoprim/Sulfameth oxazole S <0.5 S = SUSCEPTIBLE I = INTERMEDIATE R = RESISTANT BLANK = DATA NOT AVAILABLE, OR DRUG NOT ADVISABLE OR TESTED R* = RESISTANCE DUE TO EXTENDED SPECTRUM BETA-LACTAMASES ESBL = EXTENDED SPECTRUM BETA-LACTAMASE TFG = THYMIDINE-DEPENDENT STRAIN LEIGHANN = BETA-LACTAMASE POSITIVE IB = INDUCIBLE BETA-LACTAMASE. APPEARS IN PLACE OF 'S' WITH SPECIES KNOWN TO POSSESS INDUCIBLE BETA-LACTAMASES. POTENTIALLY THEY MAY BECOME RESISTANT TO ALL B-LACTAM DRUGS. PERFORMED BY: [place] [address] PATHOLOGIST DRILL PRESS SET UP OPERATOR CHAO ARELLANO M.D. [facility] Comment on above: Performed By: #### C UU #### [facility] [address] [place] [address] CBC AUTO DIFFon 10-11-2022 BASO # 0.0 103/ul Normal 0.0-0.1 [facility] Comment on above: Performed By: #### C BC #### [facility] [address] [place] [address] Dr. Odilia Ceron Basophils/100 WBC (Bld) 0.4 % Normal 0.2-2.0 [facility] Comment on above: Performed By: #### C BC #### [facility] [address] [place] [address] Dr. Odilia Ceron EO # 0.1 103/ul Normal 0.0-0.7 [facility] Comment on above: Performed By: #### C BC #### [facility] [address] [place] [address] Dr. Odilia Ceron Eosinophils/100 WBC (Bld) 2.1 % Normal 0.9-7.0 [facility] Comment on above: Performed By: #### C BC #### [facility] [address] [place] [address] Dr. Odilia Ceron Erythrocyte distribution width (RBC) [Ratio] 15.3 % Critically high 11.0-15.0 [facility] Comment on above: Performed By: #### C BC #### [facility] [address] [place] [address] Dr. Odilia Ceron Hematocrit (Bld) [Volume fraction] 40.8 % Normal 36.0-48.0 [facility] Comment on above: Performed By: #### C BC #### [facility] [address] [place] [address] Dr. Odilia Ceron Hemoglobin (Bld) [Mass/Vol] 12.9 g/dL Normal 12.0-16.0 [facility] Comment on above: Performed By: #### C BC #### [facility] [address] [place] [address] Dr. Odilia Ceron IG # 0.02 10e3/ul Normal 0.00-0.03 [facility] Comment on above: Performed By: #### C BC #### [facility] [address] [place] [address] Dr. Odilia Ceron IG % 0.4 % Normal 0.0-0.5 [facility] Comment on above: Performed By: #### C BC #### [facility] [address] [place] [address] Dr. Odilia Ceron LYMPH # 1.8 103/ul Normal 1.2-3.8 [facility] Comment on above: Performed By: #### C BC #### [facility] [address] [place] [address] Dr. Odilia Ceron Lymphocytes/100 WBC (Bld) 38.1 % Normal 20.5-60.0 [facility] Comment on above: Performed By: #### C BC #### [facility] [address] [place] [address] Dr. Odilia Ceron MANUAL DIFF REQ NO Normal [facility] Comment on above: Performed By: #### C BC #### [facility] [address] [place] [address] Dr. Odilia Ceron MCH (RBC) [Entitic mass] 28.0 pg Normal 26.7-34.0 [facility] Comment on above: Performed By: #### C BC #### [facility] [address] [place] [address] Dr. Odilia Ceron MCHC (RBC) [Mass/Vol] 31.6 g/dL Normal 29.9-35.2 [facility] Comment on above: Performed By: #### C BC #### [facility] [address] [place] [address] Dr. Odilia Ceron MCV (RBC) [Entitic vol] 88.5 fL Normal 81.0-99.0 [facility] Comment on above: Performed By: #### C BC #### [facility] [address] [place] [address] Dr. Odilia Ceron MONO # 0.5 103/ul Normal 0.3-0.8 [facility] Comment on above: Performed By: #### C BC #### [facility] [address] [place] [address] Dr. Odilia Ceron Monocytes/100 WBC (Bld) 10.4 % Normal 1.7-12.0 [facility] Comment on above: Performed By: #### C BC #### [facility] [address] [place] [address] Dr. Odilia Ceron NEUT # 2.3 103/ul Normal 1.4-6.5 [facility] Comment on above: Performed By: #### C BC #### [facility] [address] [place] [address] Dr. Odilia Ceron Neutrophils/100 WBC (Bld) 48.6 % Normal 43.0-75.0 [facility] Comment on above: Performed By: #### C BC #### [facility] [address] [address] [address] Odilia Ceron Platelet mean volume (Bld) [Entitic vol] 10.1 fL Normal 9.5-13.5 [facility] Comment on above: Performed By: #### C BC #### [facility] [address] [address] [address] Odilia Ceron PLT 298 103/ul Normal 150-450 [facility] Comment on above: Performed By: #### C BC #### [facility] [address] [address] [address] Odilia Ceron RBC 4.61 106/ul Normal 4.20-5.40 [facility] Comment on above: Performed By: #### C BC #### [facility] [address] [address] [address] Odilia Ceron WBC 4.8 103/ul Normal 4.0-11.0 [facility] Comment on above: Performed By: #### C BC #### [facility] [address] [address] [address] Odilia Ceron FERRITINon 10-11-2022 Ferritin [Mass/Vol] 21.0 ng/mL Normal 8.0-252.0 [facility] Comment on above: Performed By: #### F ERR, FETIBC ####[facility] [id number] [address]Dr[address] Odilia Ceron IRON AND TIBCon 10-11-2022 % SATURATION 14.5 % Normal [facility] Comment on above: Performed By: #### F ERR, FETIBC ####[facility] [id number] [id number] Odilia Ceron Iron [Mass/Vol] 51.0 ug/dL Normal 50.0-170.0 [facility] Comment on above: Performed By: #### F ERR, FETIBC ####[facility] [address] [address]Dr. Odilia Ceron TIBC DIRECT 351.0 ug/dL Normal 250.0-450.0 [facility] Comment on above: Performed By: #### F ERR, FETIBC ####[facility] [address] [place], [place] [address]ZwNoemi Herman 10-09-2022 CNPN Telephone (HEMTSA) SHAUNA CHRISTENSEN ([id number]) 1955 F Date Time Provider Department 10/09/22 TABBY RAMÍREZ During your visit today, we recorded the following information about you: Tabby Ramírez RN 10/09/2022 4:12 PM Signed Patient states she does not see you until 01/04/23 but is just not feeling well. Would like to have some iron study lab work done. Would like to have that drawn at [facility]. If you place orders you would like, we can send to [facility]. Please review and advise. ' Thanks. JAI Grullon MD 10/09/2022 4:26 PM Signed Orders placed for CBC and iron studies. Thanks, Caitie Ramírez RN 10/09/2022 4:53 PM Signed PSS: Can you send the labs BRM ordered today to the [facility]. LMOV for patient to call the hospital first before heading over. Laury Oh Sec 10/10/2022 7:11 AM Signed Faxed to [facility] Tabby Ramírez RN 10/10/2022 11:27 AM Signed Thank you. Tabby Ramírez RN Allergies As of Date: 10/09/2022 (No Known Allergies) Date Reviewed: 06/22/2022 Reviewed by: Emily Ta MA - Fully Assessed Reason for Visit: Orders [681] Primary Visit Diagnosis:Iron deficiency anemia, unspecified iron deficiency anemia type [D50.9] Order(s):CBC + DIFF [SQCBCDIF] Order #: [id number] FUTURE IRON + TIBC [SQIRON] Order #: [id number] FUTURE FERRITIN BLD [SQFERR] Order #: [id number] FUTURE Prescriptions as of 10/10/2022 - aspirin (ASPIR-81 ORAL) Take 81 mg by mouth once daily. - atorvastatin (LIPITOR) 10 mg tablet - Biotin 10,000 mcg cap 1 capsule. - calcium citrate (CALCITRATE) 200 mg (950 mg) tab - Cholecalciferol, Vitamin D3, 250 mcg (10,000 unit) cap Take 10,000 Units by mouth. - cyanocobalamin (VITAMIN B-12) 100 mcg tab Take 100 mcg by mouth. - FEROSUL 325 mg (65 mg iron) tablet Take 1 tablet by mouth daily with breakfast. - SYNTHROID 50 mcg tablet - metFORMIN (GLUCOPHAGE) 500 mg tablet - MV with Lcd-Swzezmyx-Eoxphc (CENTRUM SILVER) 0.4 mg-300 mcg- 250 mcg tab See Admin Instructions. - oxybutynin ER (DITROPAN XL) 15 mg 24 hr Extended Rel Tab Problem List As Of Date: 10/09/2022 (None) Encounter Status:Closed by TABBY RAMÍREZ on 10/10/22 Normal [facility] Urinalysis - AUTOMATEDon Appearance (U) dark [employer] Other Bilirubin Ql (U) Negative [employer] Other Color (U) year [employer] Other Glucose Ql (U) Negative [employer] Other Hemoglobin Ql (U) large [place] Other Ketones Ql (U) Negative [employer] Other Leukocyte esterase Test strip Ql (U) large [employer] Other Nitrite Ql (U) Negative [employer] Other pH (U) 6.5 [pH] [employer] Other Protein Ql (U) >=300 mg/DL [email or web address] [facility] [employer] Other Specific gravity (U) [Rel density] 1.030 [employer] Other Urobilinogen (U) [Mass/Vol] 0.2 mg/dL [employer] Other Urinalysis - AUTOMATED [employer] Other Urine Cultureon 10-04-2022 Bacteria identified Cx Nom (U) 40,000 colonies/ml mixed bacterial skin contaminants 2 Days PERFORMED BY: [place] [address] PATHOLOGIST DRILL PRESS SET UP OPERATOR CHAO ARELLANO M.D. [facility] Comment on above: Performed By: #### C UU #### [address] Bacteria identified Cx Nom (U) [employer] Other CBC W Auto Differential pane l (Bld)on 08-31-2022 Basophils (Bld) [#/Vol] 0.03 10*3/uL Normal <0.11 [facility] Comment on above: Order Comment: Speci men Type: BLOOD SPECIMEN Ordering Facility: External Submitter Address: , , Performed By: #### 5 7021-8 #### [facility] CLIA [id number] [address] [place] [address] Basophils/100 WBC (Bld) 0.5 % Normal [facility] Comment on above: Order Comment: Speci men Type: BLOOD SPECIMEN Ordering Facility: External Submitter Address: , , Performed By: #### 5 7021-8 #### [facility] CLIA [id number] [address] [place] [address] Differential cell count method Nom (Bld) Auto Normal [facility] Comment on above: Order Comment: Speci men Type: BLOOD SPECIMEN Ordering Facility: External Submitter Address: , , Performed By: #### 5 7021-8 #### [facility] CLIA [id number] [address] [place] [address] Eosinophils (Bld) [#/Vol] 0.12 10*3/uL Normal <0.46 [facility] Comment on above: Order Comment: Speci men Type: BLOOD SPECIMEN Ordering Facility: External Submitter Address: , , Performed By: #### 5 7021-8 #### [facility] CLIA [id number] [address] [place] [address] Eosinophils/100 WBC (Bld) 1.9 % Normal [facility] Comment on above: Order Comment: Speci men Type: BLOOD SPECIMEN Ordering Facility: External Submitter Address: , , Performed By: #### 5 7021-8 #### [facility] CLIA [id number] [address] [place] [address] Erythrocyte distribution width (RBC) [Ratio] 14.6 % Normal 11.5-15.0 [facility] Comment on above: Order Comment: Speci men Type: BLOOD SPECIMEN Ordering Facility: External Submitter Address: , , Performed By: #### 5 7021-8 #### [facility] CLIA [id number] [address] [place] [address] Hematocrit (Bld) [Volume fraction] 39.1 % Normal 36.0-46.0 [facility] Comment on above: Order Comment: Speci men Type: BLOOD SPECIMEN Ordering Facility: External Submitter Address: , , Performed By: #### 5 7021-8 #### [facility] CLIA [id number] [address] [place] [address] 64460 Hemoglobin (Bld) [Mass/Vol] 12.7 g/dL Normal 11.5-15.5 [facility] Comment on above: Order Comment: Speci men Type: BLOOD SPECIMEN Ordering Facility: External Submitter Address: , , Performed By: #### 5 7021-8 #### [facility] CLIA [id number] [address] [place] [address] 98655 Immature granulocytes (Bld) [#/Vol] 0.03 10*3/uL Normal <0.10 [facility] Comment on above: Order Comment: Speci men Type: BLOOD SPECIMEN Ordering Facility: External Submitter Address: , , Performed By: #### 5 7021-8 #### [facility] CLIA [id number] [address] [place] [address] 76957 Immature granulocytes/100 WBC (Bld) 0.5 % Normal [facility] Comment on above: Order Comment: Speci men Type: BLOOD SPECIMEN Ordering Facility: External Submitter Address: , , Performed By: #### 5 7021-8 #### [facility] CLIA [id number] [address] [place] [address] 69133 Lymphocytes (Bld) [#/Vol] 2.59 10*3/uL Normal 1.00-4.00 [facility] Comment on above: Order Comment: Speci men Type: BLOOD SPECIMEN Ordering Facility: External Submitter Address: , , Performed By: #### 5 7021-8 #### [facility] CLIA [id number] [address] [place] [address] 31485 Lymphocytes/100 WBC (Bld) 41.4 % Normal [facility] Comment on above: Order Comment: Speci men Type: BLOOD SPECIMEN Ordering Facility: External Submitter Address: , , Performed By: #### 5 7021-8 #### [facility] CLIA [id number] [address] [place] [address] 33692 MCH (RBC) [Entitic mass] 27.9 pg Normal 26.0-34.0 [facility] Comment on above: Order Comment: Speci men Type: BLOOD SPECIMEN Ordering Facility: External Submitter Address: , , Performed By: #### 5 7021-8 #### [facility] CLIA [id number] [address] [place] [address] 14956 MCHC (RBC) [Mass/Vol] 32.5 g/dL Normal 30.5-36.0 [facility] Comment on above: Order Comment: Speci men Type: BLOOD SPECIMEN Ordering Facility: External Submitter Address: , , Performed By: #### 5 7021-8 #### [facility] CLIA [id number] [address] [place] [address] 22117 MCV (RBC) [Entitic vol] 85.7 fL Normal 80.0-100.0 [facility] Comment on above: Order Comment: Speci men Type: BLOOD SPECIMEN Ordering Facility: External Submitter Address: , , Performed By: #### 5 7021-8 #### [facility] CLIA [id number] [address] [place] [address] 68681 Monocytes (Bld) [#/Vol] 0.57 10*3/uL Normal <0.87 [facility] Comment on above: Order Comment: Speci men Type: BLOOD SPECIMEN Ordering Facility: External Submitter Address: , , Performed By: #### 5 7021-8 #### [facility] CLIA [id number] [address] [place] [address] 99260 Monocytes/100 WBC (Bld) 9.1 % Normal [facility] Comment on above: Order Comment: Speci men Type: BLOOD SPECIMEN Ordering Facility: External Submitter Address: , , Performed By: #### 5 7021-8 #### [facility] CLIA [id number] [address] [place] [address] 33086 Neutrophils (Bld) [#/Vol] 2.91 10*3/uL Normal 1.45-7.50 [facility] Comment on above: Order Comment: Speci men Type: BLOOD SPECIMEN Ordering Facility: External Submitter Address: , , Performed By: #### 5 7021-8 #### [facility] CLIA [id number] [address] [place] [address] 63598 Neutrophils/100 WBC (Bld) 46.6 % Normal [facility] Comment on above: Order Comment: Speci men Type: BLOOD SPECIMEN Ordering Facility: External Submitter Address: , , Performed By: #### 5 7021-8 #### [facility] CLIA [id number] [address] [place] [address] 86129 Nucleated RBC (Bld) [#/Vol] 10*3/uL Normal <0.01 [facility] Comment on above: Order Comment: Speci men Type: BLOOD SPECIMEN Ordering Facility: External Submitter Address: , , Performed By: #### 5 7021-8 #### [facility] CLIA [id number] [address] [place] [address] Nucleated RBC/100 WBC (Bld) [Ratio] 0.0 /100 WBC Normal [facility] Comment on above: Order Comment: Speci men Type: BLOOD SPECIMEN Ordering Facility: External Submitter Address: , , Performed By: #### 5 7021-8 #### [facility] CLIA [id number] [address] [place] [address] 67811 Platelet mean volume (Bld) [Entitic vol] 10.2 fL Normal 9.0-12.7 [facility] Comment on above: Order Comment: Speci men Type: BLOOD SPECIMEN Ordering Facility: External Submitter Address: , , Performed By: #### 5 7021-8 #### [facility] CLIA [id number] [address] [place] [address] 05225 Platelets (Bld) [#/Vol] 281 10*3/uL Normal 150-400 [facility] Comment on above: Order Comment: Speci men Type: BLOOD SPECIMEN Ordering Facility: External Submitter Address: , , Performed By: #### 5 7021-8 #### [facility] CLIA [id number] [address] [place] [address] 91936 RBC (Bld) [#/Vol] 4.56 10*6/uL Normal 3.90-5.20 [facility] Comment on above: Order Comment: Speci men Type: BLOOD SPECIMEN Ordering Facility: External Submitter Address: , , Performed By: #### 5 7021-8 #### [facility] CLIA [id number] [address] [place] [address] WBC (Bld) [#/Vol] 6.25 10*3/uL Normal 3.70-11.00 [facility] Comment on above: Order Comment: Speci men Type: BLOOD SPECIMEN Ordering Facility: External Submitter Address: , , Performed By: #### 5 7021-8 #### [facility] CLIA [id number] [address] [place] [address] 81519 CNOVSPon 08-31-2022 CNOVSP Visit (SP) Office ([place]) SHAUNA CHRISTENSEN ([id number]) 1955 F Date Time Provider Department 08/31/22 3:30 PM AUGUSTIN VITAL During your visit today, we recorded the following information about you: Temperature Pulse Respiration Blood pressure 97.1 degrees 75/minute 16/minute 139/73 Weight Height 85.7 kg 1.596 m Augustin Vital MD 08/31/2022 8:59 PM Signed PATIENT NAME: Shauna Christensen DATE: 08/31/2022 PRIMARY CARE PHYSICIAN: Pedro Herrera DO Portions of this encounter note have been copied from my note from 06/22/2022 and has been updated where appropriate, and reflect my current medical decision making from today. CC: This is a 67 year old female initially referred for evaluation of iron deficiency anemia, seen for scheduled follow-up. INTERIM HISTORY: At the patient's initial visit her stools for occult blood were negative. Since then she has remained on oral iron 1 daily, which she is. Since her initial visit she has had no medical changes. Overall she feels well with no complaints. No change in bowel habits or evidence of GI bleeding. MEDICATIONS: Current Outpatient Medications Medication Sig aspirin (ASPIR-81 ORAL) Take 81 mg by mouth once daily. atorvastatin (LIPITOR) 10 mg tablet Biotin 10,000 mcg cap 1 capsule. calcium citrate (CALCITRATE) 200 mg (950 mg) tab Cholecalciferol, Vitamin D3, 250 mcg (10,000 unit) cap Take 10,000 Units by mouth. cyanocobalamin (VITAMIN B-12) 100 mcg tab Take 100 mcg by mouth. (Patient not taking: No sig reported) FEROSUL 325 mg (65 mg iron) tablet Take 1 tablet by mouth daily with breakfast. SYNTHROID 50 mcg tablet metFORMIN (GLUCOPHAGE) 500 mg tablet MV with Lpl-Agypzijy-Zckyjs (CENTRUM SILVER) 0.4 mg-300 mcg- 250 mcg tab See Admin Instructions. oxybutynin ER (DITROPAN XL) 15 mg 24 hr Extended Rel Tab No current facility-administered medications for this visit. ALLERGIES: ALLERGIES No Known Allergies PAST MEDICAL HISTORY: PAST MEDICAL HISTORY Diagnosis Date Arthritis Chronic fatigue syndrome Hypothyroidism Insulin resistance Mixed hyperlipidemia Reddy's neuroma of right foot Obstructive sleep apnea Osteoarthritis of both knees Osteopenia Peripheral venous insufficiency Peripheral venous insufficiency Prediabetes Primary ovarian failure Rosacea Vitamin D deficiency PAST SURGICAL HISTORY: PAST SURGICAL HISTORY Procedure Laterality Date SNGL x2 PAST SURGICAL HISTORY OF Bilateral knee scraped PAST SURGICAL HISTORY OF Clogged duct removal in breast PKG EMP SCLEROTHERAPY/VERICOSE VEINS, MULTIPLE VEINS FAMILY HISTORY: FAMILY HISTORY Problem Relation Age of Onset Hodgkin Lymphoma Mother Leukemia Father SOCIAL HISTORY: Social History Tobacco Use Smoking status: Never Passive exposure: Never Smokeless tobacco: Never Substance Use Topics Alcohol use: Yes Comment: occasional Drug use: Not Currently COMPLETE REVIEW OF SYSTEMS: CONSTITUTION: Negative for pain, fatigue, weight loss, or appetite loss. EENT: Negative for mouth soreness, antibiotics use, epistaxis, visual problems, neck or facial swelling, fever/chills, bleeding gums, or hearing loss. CV: Negative for edema, calf swelling, palpitations, or chest pain. RESPIRATORY: Negative for cough, SOB, hemoptysis, or wheezing. GI: Negative for nausea/vomiting, heartburn, vomiting blood, dysphasia, diarrhea, blood in stool, constipation, early satiety, PICA, vegetarian, poor nutrition, abdominal fullness, or abdominal pain. NEUROLOGICAL: Negative for numbness/tingling, dizziness, gait disturbance, headache, speech disturbance, tremor, hemiparesis/sensory loss, or change in mental status. MUSCULOSKELETAL: Negative for joint pain, joint swelling, or proximal muscle weakness. SKIN: Negative for hair loss, bruising, nail changes, rash, itching, pallor, or jaundice. ENDO/URO: Negative for hot flashes, cold or heat intolerance, urinary frequency, urinary hesitancy, menorrhagia, or hematuria. PSYCH: Negative for anxiety, depression, or other. PHYSICAL EXAM: BP 139/73 Pulse 75 Temp 36.2 ?C (97.1 ?F) (Temporal) Resp 16 Ht 159.6 cm (5' 2.84 ) Wt 85.7 kg (189 lb) SpO2 99% BMI 33.66 kg/m? GENERAL EXAM: Well developed/well nourished; in no acute distress. SKIN: Negative for lesions, rashes, or ulcers on the upper and lower extremities and face. Negative for palpations/nodules, purpura, and ecchymosis. EENT: Negative for conjunctiva, mucosal pallor, JVD, LAP, thyromegaly, and glossitis. Supple AND PERRL. EXTREMITIES: Negative for cyanosis, clubbing, and crepitus. LUNGS: Negative to auscultation, respiratory effort, and percussion. CARDIOVASCULAR: Regular rate. Negative for murmurs/S3S4/abnormal sounds, edema, and carotid bruits. ABDOMEN: Negative for masses, hernia, and spleen/liver ab (more content not included)... Normal [facility] Comprehensive metabolic 2000 panelon 08-31-2022 Albumin [Mass/Vol] 4.4 g/dL Normal 3.9-4.9 [facility] Comment on above: Order Comment: Speci men Type: BLOOD SPECIMEN Ordering Facility: [facility] Address: [address] [address] Performed By: #### 2 4323-8 #### [facility] CLIA [id number] [address] [place] [address] 19694 ALP [Catalytic activity/Vol] 99 U/L Normal 34-123 [facility] Comment on above: Order Comment: Speci men Type: BLOOD SPECIMEN Ordering Facility: [facility] Address: [address] [address] Performed By: #### 2 4323-8 #### [facility] CLIA [id number] [address] [place] [address] 35371 ALT [Catalytic activity/Vol] 20 U/L Normal 7-38 [facility] Comment on above: Order Comment: Speci men Type: BLOOD SPECIMEN Ordering Facility: [facility] Address: [address] [address] Performed By: #### 2 4323-8 #### [facility] CLIA [id number] [address] [place] [address] 45301 Anion gap [Moles/Vol] 9 mmol/L Normal 9-18 [facility] Comment on above: Order Comment: Speci men Type: BLOOD SPECIMEN Ordering Facility: [facility] Address: [address] [address] Performed By: #### 2 432-8 #### [facility] CLIA [id number] [address] [place] [address] 03217 AST [Catalytic activity/Vol] 23 U/L Normal 13-35 [facility] Comment on above: Order Comment: Speci men Type: BLOOD SPECIMEN Ordering Facility: [facility] Address: [address] [address] Performed By: #### 2 4323-8 #### [facility] CLIA [id number] [address] [place] [address] 84265 Bilirubin [Mass/Vol] 0.4 mg/dL Normal 0.2-1.3 [facility] Comment on above: Order Comment: Speci men Type: BLOOD SPECIMEN Ordering Facility: [facility] Address: [address] Performed By: #### 2 4323-8 #### [facility] CLIA [id number] [address] [place] [address] 56709 Calcium [Mass/Vol] 9.9 mg/dL Normal 8.5-10.2 [facility] Comment on above: Order Comment: Speci men Type: BLOOD SPECIMEN Ordering Facility: [facility] Address: [address] [address] Performed By: #### 2 4323-8 #### [facility] CLIA [id number] [address] [place] [address] 11194 Chloride [Moles/Vol] 103 mmol/L Normal 97-105 [facility] Comment on above: Order Comment: Speci men Type: BLOOD SPECIMEN Ordering Facility: [facility] Address: [address] [address] Performed By: #### 2 4323-8 #### [facility] CLIA [id number] [address] [place] [address] 54423 CO2 [Moles/Vol] 28 mmol/L Normal 22-30 [facility] Comment on above: Order Comment: Speci men Type: BLOOD SPECIMEN Ordering Facility: [facility] Address: [address] [place] [address] Performed By: #### 2 4323-8 #### [facility] CLIA [id number] [address] [place], [place] [address] Creatinine [Mass/Vol] 0.95 mg/dL Normal 0.58-0.96 [facility] Comment on above: Order Comment: Speci men Type: BLOOD SPECIMEN Ordering Facility: [facility] Address: [address] [place] [address] Performed By: #### 2 4323-8 #### [facility] CLIA [id number] [address] [place], [place] [address] ESTIMATED GLOMERULAR FILTRATION RATE 65 mL/min/1.73m??? Normal >=60 [facility] Comment on above: Order Comment: Speci men Type: BLOOD SPECIMEN Ordering Facility: [facility] Address: [address] [place] [address] Result Comment: Kristal mated Glomerular Filtration Rate (eGFR) is calculated using the 2020 CKD-EPI creatinine equation. This equation utilizes serum creatinine, sex, and age as parameters. The creatinine assay has traceable calibration to isotope dilution-mass spectrometry. Refer to KDIGO guidelines for clinical interpretation. In patients with unstable renal function, e.g. those with acute kidney injury, the eGFR may not accurately reflect actual GFR. Performed By: #### 2 4323-8 #### [facility] CLIA [id number] [address] [place] [address] 41663 Glucose [Mass/Vol] 132 mg/dL High 74-99 [facility] Comment on above: Order Comment: Dior rabago Type: BLOOD SPECIMEN Ordering Facility: [facility] Address: [address] [place] [address] Result Comment: The [place] Diabetes [employer] (ADA) provides guidance for cutoff values for fasting glucose and random glucose. The ADA defines fasting as no caloric intake for at least 8 hours. Fasting plasma glucose results between 100 to 125 mg/dL indicate increased risk for diabetes (prediabetes). Fasting plasma glucose results greater than or equal to 126 mg/dL meet the criteria for diagnosis of diabetes. In the absence of unequivocal hyperglycemia, results should be confirmed by repeat testing. In a patient with classic symptoms of hyperglycemia or hyperglycemic crisis, random plasma glucose results greater than or equal to 200 mg/dL meet the criteria for diagnosis of diabetes. Reference: Standards of Medical Care in Diabetes 2016, [place] [employer]. Diabetes Care. 2016.39(Suppl 1). Performed By: #### 2 4323-8 #### [facility] CLIA [id number] [address] [place] [address] 94718 Potassium [Moles/Vol] 4.6 mmol/L Normal 3.7-5.1 [facility] Comment on above: Order Comment: Dior rabago Type: BLOOD SPECIMEN Ordering Facility: [facility] Address: [address] [place] [address] Performed By: #### 2 4323-8 #### [facility] CLIA [id number] [address] [place] [address] 99585 Protein [Mass/Vol] 7.2 g/dL Normal 6.3-8.0 [facility] Comment on above: Order Comment: Dior rabago Type: BLOOD SPECIMEN Ordering Facility: [facility] Address: [address] [place] [address] Performed By: #### 2 4323-8 #### [facility] CLIA [id number] [address] [place] [address] 76560 Sodium [Moles/Vol] 140 mmol/L Normal 136-144 [facility] Comment on above: Order Comment: Speci men Type: BLOOD SPECIMEN Ordering Facility: [facility] Address: [address] [id number] Performed By: #### 2 4323-8 #### [facility] CLIA [id number] [address] [place] [address] 66998 Urea nitrogen [Mass/Vol] 16 mg/dL Normal 7-21 [facility] Comment on above: Order Comment: Speci men Type: BLOOD SPECIMEN Ordering Facility: [facility] Address: [address] [id number] Performed By: #### 2 4323-8 #### [facility] CLIA [id number] [address] [place] [address] 42448 Albumin [Mass/Vol] 4.4 g/dL 3.9 - 4.9 g/dL [facility] ALP [Catalytic activity/Vol] 99 U/L 34 - 123 U/L [facility] ALT [Catalytic activity/Vol] 20 U/L 7 - 38 U/L [facility] Anion gap [Moles/Vol] 9 mmol/L 9 - 18 mmol/L [facility] AST [Catalytic activity/Vol] 23 U/L 13 - 35 U/L [facility] Bilirubin [Mass/Vol] 0.4 mg/dL 0.2 - 1.3 mg/dL [facility] Calcium [Mass/Vol] 9.9 mg/dL 8.5 - 10. 2 mg/dL [facility] Chloride [Moles/Vol] 103 mmol/L 97 - 105 mmol/L [facility] CO2 [Moles/Vol] 28 mmol/L 22 - 30 mmol/L [facility] Creatinine [Mass/Vol] 0.95 mg/dL 0.58 - 0.96 mg/dL [facility] Estimated Glomerular Filtration Rate 65 mL/min/1.73m >=60 mL/min/1.73m [facility] Glucose [Mass/Vol] 132 mg/dL High 74 - 99 mg/dL [facility] Potassium [Moles/Vol] 4.6 mmol/L 3.7 - 5.1 mmol/L [facility] Protein [Mass/Vol] 7.2 g/dL 6.3 - 8.0 g/dL [facility] Sodium [Moles/Vol] 140 mmol/L 136 - 144 mmol/L [facility] Urea nitrogen [Mass/Vol] 16 mg/dL 7 - 21 mg/dL [facility] Ferritin SerPl-mCncon 2022 Ferritin [Mass/Vol] 36.9 ng/mL Normal 14.7-205.1 [facility] Comment on above: Order Comment: Speci men Type: BLOOD SPECIMEN Ordering Facility: [facility] Address: [address] [address] Performed By: #### 5 0190-8, 2275-4 #### [facility] CLIA [id number] [address] [place] [address] [place] Iron and Iron binding capaci ty panel 08-31-2022 Iron [Mass/Vol] 61 ug/dL Normal 41-186 [facility] Comment on above: Order Comment: Speci men Type: BLOOD SPECIMEN Ordering Facility: [facility] Address: [address] Performed By: #### 5 0190-8, 2275-4 #### [facility] CLIA [id number] [address] [place] [address] [place] Iron binding capacity [Mass/Vol] 339 ug/dL Normal 232-386 [facility] Comment on above: Order Comment: Speci men Type: BLOOD SPECIMEN Ordering Facility: [facility] Address: [address] [place], [place] [address] Performed By: #### 5 0190-8, 2275-4 #### [facility] CLIA [id number] [address] [place] [address] [place] Iron/TIBC [Molar ratio] 18.0 % Normal 15.0-57.0 [facility] Comment on above: Order Comment: Speci men Type: BLOOD SPECIMEN Ordering Facility: [facility] Address: [address] [place], [place] [address] Performed By: #### 5 0190-8, 2276-4 #### [facility] CLIA [id number] [address] [place], [place] [address] [address] [place] Physical Therapy Noteon 03 Physical Therapy Note [id number] 07-25-2022 CNPN Telephone ([place]AS[place]) SHAUNA CHRISTENSEN ([id number]) 1955 F Date Time Provider Department 07/25/22 DOROTHY KHAN During your visit today, we recorded the following information about you: Dorothy Khan RN 07/25/2022 1:53 PM Signed ----- Message from Augustin Vital MD sent at 07/25/2022 12:49 PM EST ----- Please inform the patient her stools for occult blood are negative. If no signs of bleeding okay to hold off on scopes at this time. ThanksCaitie RN 07/25/2022 2:00 PM Signed Informed pt of Dr Vital's message. Pt verbalized understanding and denies further needs at this time. Dorothy Khan RN Allergies As of Date: 07/25/2022 (No Known Allergies) Date Reviewed: 06/22/2022 Reviewed by: Emily Ta MA - Fully Assessed Reason for Visit: Results [95] Prescriptions as of 07/25/2022 - aspirin (ASPIR-81 ORAL) Take 81 mg by mouth once daily. - atorvastatin (LIPITOR) 10 mg tablet - Biotin 10,000 mcg cap 1 capsule. - calcium citrate (CALCITRATE) 200 mg (950 mg) tab - Cholecalciferol, Vitamin D3, 250 mcg (10,000 unit) cap Take 10,000 Units by mouth. - cyanocobalamin (VITAMIN B-12) 100 mcg tab Take 100 mcg by mouth. - FEROSUL 325 mg (65 mg iron) tablet Take 1 tablet by mouth daily with breakfast. - SYNTHROID 50 mcg tablet - metFORMIN (GLUCOPHAGE) 500 mg tablet - MV with Oye-Wlpjktym-Rbfnml (CENTRUM SILVER) 0.4 mg-300 mcg- 250 mcg tab See Admin Instructions. - oxybutynin ER (DITROPAN XL) 15 mg 24 hr Extended Rel Tab Problem List As Of Date: 07/25/2022 (None) Encounter Status:Closed by DOROTHY KHAN on 07/25/22 Normal [facility] Hemoccult Stl Ql IAon 2022 Lower GI hemoglobin IA Ql (Stl) Negative Normal Negative [facility] Comment on above: Order Comment: Speci men Type: STOOL SPECIMEN Ordering Facility: [facility] Address: [address] [place] [address] Performed By: #### 2 9771-3 #### [facility] CLIA [id number] [address] [place] [address] OF [facility] 06-26-2022 CNPN Telephone ([place]) SHAUNA CHRISTENSEN ([id number]) 1955 F Date Time Provider Department 06/26/22 DOROTHY KHAN During your visit today, we recorded the following information about you: Dorothy Khan RN 06/26/2022 2:32 PM Signed ----- Message from Augustin Vital MD sent at 06/26/2022 12:04 PM EST ----- Please inform the patient that her iron levels are still a little low but overall improving. Her B12 level and other labs are normal. She should continue oral iron as planned. We will wait stools for occult blood, and if positive she should see GI for endoscopy. We will see her back as scheduled. Thanks, BRM Dorothy Khan RN 06/26/2022 2:54 PM Signed Informed pt of Dr Vital's message. Pt verbalized understanding and denies further needs at this time. Dorothy Khan RN Allergies As of Date: 06/26/2022 (No Known Allergies) Date Reviewed: 06/22/2022 Reviewed by: Emily Ta MA - Fully Assessed Reason for Visit: Results [95] Prescriptions as of 06/26/2022 - aspirin (ASPIR-81 ORAL) Take 81 mg by mouth once daily. - atorvastatin (LIPITOR) 10 mg tablet - Biotin 10,000 mcg cap 1 capsule. - calcium citrate (CALCITRATE) 200 mg (950 mg) tab - Cholecalciferol, Vitamin D3, 250 mcg (10,000 unit) cap Take 10,000 Units by mouth. - cyanocobalamin (VITAMIN B-12) 100 mcg tab Take 100 mcg by mouth. - FEROSUL 325 mg (65 mg iron) tablet Take 1 tablet by mouth daily with breakfast. - SYNTHROID 50 mcg tablet - metFORMIN (GLUCOPHAGE) 500 mg tablet - MV with Gad-Ydhbhvee-Nttkie (CENTRUM SILVER) 0.4 mg-300 mcg- 250 mcg tab See Admin Instructions. - oxybutynin ER (DITROPAN XL) 15 mg 24 hr Extended Rel Tab Problem List As Of Date: 06/26/2022 (None) Encounter Status:Closed by DOROTHY KHAN on 06/26/22 Normal [facility] CBC W Auto Differential pane l (Bld)on 06-22-2022 Basophils (Bld) [#/Vol] 0.03 10*3/uL Normal <0.11 [facility] Comment on above: Order Comment: Speci men Type: BLOOD SPECIMEN Ordering Facility: [facility] Address: [address] [place] [address] Performed By: #### 2 4323-8 #### [facility] CLIA [id number] [address] [place] [address]23 Basophils/100 WBC (Bld) 0.4 % Normal [facility] Comment on above: Order Comment: Speci men Type: BLOOD SPECIMEN Ordering Facility: [facility] Address: [address] [place] [address] Performed By: #### 2 4323-8 #### [facility] CLIA [id number] [address] [place] [address] 11043 Differential cell count method Nom (Bld) Auto Normal [facility] Comment on above: Order Comment: Speci men Type: BLOOD SPECIMEN Ordering Facility: [facility] Address: [address] [place] [address] Performed By: #### 2 4323-8 #### [facility] CLIA [id number] [address] [place] [address]323 Eosinophils (Bld) [#/Vol] 0.12 10*3/uL Normal <0.46 [facility] Comment on above: Order Comment: Speci men Type: BLOOD SPECIMEN Ordering Facility: [facility] Address: [address] [place] [address] Performed By: #### 2 4323-8 #### [facility] CLIA [id number] [address] [place] [address]01 Eosinophils/100 WBC (Bld) 1.7 % Normal [facility] Comment on above: Order Comment: Speci men Type: BLOOD SPECIMEN Ordering Facility: [facility] Address: [address] [place] [address] Performed By: #### 2 4323-8 #### [facility] CLIA [id number] [address] [place] [address] 20010 Erythrocyte distribution width (RBC) [Ratio] 16.6 % High 11.5-15.0 [facility] Comment on above: Order Comment: Speci men Type: BLOOD SPECIMEN Ordering Facility: [facility] Address: [address] [place] [address] Performed By: #### 2 4323-8 #### [facility] CLIA [id number] [address] [place] [address] 88058 Hematocrit (Bld) [Volume fraction] 35.3 % Low 36.0-46.0 [facility] Comment on above: Order Comment: Speci men Type: BLOOD SPECIMEN Ordering Facility: [facility] Address: [address] [place] [address] Performed By: #### 2 4323-8 #### [facility] CLIA [id number] [address] [place] [address] 92876 Hemoglobin (Bld) [Mass/Vol] 11.2 g/dL Low 11.5-15.5 [facility] Comment on above: Order Comment: Speci men Type: BLOOD SPECIMEN Ordering Facility: [facility] Address: [address] [place] [address] Performed By: #### 2 4323-8 #### [facility] CLIA [id number] [address] [place] [address] 33599 Immature granulocytes (Bld) [#/Vol] 10*3/uL Normal <0.10 [facility] Comment on above: Order Comment: Speci men Type: BLOOD SPECIMEN Ordering Facility: [facility] Address: [address] [place] [address] Performed By: #### 2 4323-8 #### [facility] CLIA [id number] [address] [place] [address] 84983 Immature granulocytes/100 WBC (Bld) 0.3 % Normal [facility] Comment on above: Order Comment: Speci men Type: BLOOD SPECIMEN Ordering Facility: [facility] Address: [address] [place] [address] Performed By: #### 2 4323-8 #### [facility] CLIA [id number] [address] [place] [address] 33510 Lymphocytes (Bld) [#/Vol] 3.03 10*3/uL Normal 1.00-4.00 [facility] Comment on above: Order Comment: Speci men Type: BLOOD SPECIMEN Ordering Facility: [facility] Address: [address] [place] [address] Performed By: #### 2 4323-8 #### [facility] CLIA [id number] [address] [place] [address] 74559 Lymphocytes/100 WBC (Bld) 42.6 % Normal [facility] Comment on above: Order Comment: Speci men Type: BLOOD SPECIMEN Ordering Facility: [facility] Address: [address] [place] [address] Performed By: #### 2 4323-8 #### [facility] CLIA [id number] [address] [place] [address] 12054 MCH (RBC) [Entitic mass] 26.8 pg Normal 26.0-34.0 [facility] Comment on above: Order Comment: Speci men Type: BLOOD SPECIMEN Ordering Facility: [facility] Address: [address] [place] [address] Performed By: #### 2 4323-8 #### [facility] CLIA [id number] [address] [place] [address] 61612 MCHC (RBC) [Mass/Vol] 31.7 g/dL Normal 30.5-36.0 [facility] Comment on above: Order Comment: Speci men Type: BLOOD SPECIMEN Ordering Facility: [facility] Address: [address] [place] [address] Performed By: #### 2 4323-8 #### [facility] CLIA [id number] [address] [place] [address] 92259 MCV (RBC) [Entitic vol] 84.4 fL Normal 80.0-100.0 [facility] Comment on above: Order Comment: Speci men Type: BLOOD SPECIMEN Ordering Facility: [facility] Address: [address] [place] [address] Performed By: #### 2 4323-8 #### [facility] CLIA [id number] [address] [place] [address] 19897 Monocytes (Bld) [#/Vol] 0.75 10*3/uL Normal <0.87 [facility] Comment on above: Order Comment: Speci men Type: BLOOD SPECIMEN Ordering Facility: [facility] Address: [address] [place] [address] Performed By: #### 2 4323-8 #### [facility] CLIA [id number] [address] [place] [address] Monocytes/100 WBC (Bld) 10.5 % Normal [facility] Comment on above: Order Comment: Speci men Type: BLOOD SPECIMEN Ordering Facility: [facility] Address: [address] [place] [address] Performed By: #### 2 4323-8 #### [facility] CLIA [id number] [address] [place] [address] 95834 Neutrophils (Bld) [#/Vol] 3.16 10*3/uL Normal 1.45-7.50 [facility] Comment on above: Order Comment: Speci men Type: BLOOD SPECIMEN Ordering Facility: [facility] Address: [address] [place] [address] Performed By: #### 2 4323-8 #### [facility] CLIA [id number] [address] [place] [address] 06119 Neutrophils/100 WBC (Bld) 44.5 % Normal [facility] Comment on above: Order Comment: Speci men Type: BLOOD SPECIMEN Ordering Facility: [facility] Address: [address] [place] [address] Performed By: #### 2 4323-8 #### [facility] CLIA [id number] [address] [place] [address] 06825 Nucleated RBC (Bld) [#/Vol] 10*3/uL Normal <0.01 [facility] Comment on above: Order Comment: Speci men Type: BLOOD SPECIMEN Ordering Facility: [facility] Address: [address] [place] [address] Performed By: #### 2 4323-8 #### [facility] CLIA [id number] [address] [place] [address] 45092 Nucleated RBC/100 WBC (Bld) [Ratio] 0.0 /100 WBC Normal [facility] Comment on above: Order Comment: Speci men Type: BLOOD SPECIMEN Ordering Facility: [facility] Address: [address] [place] [address] Performed By: #### 2 4323-8 #### [facility] CLIA [id number] [address] [place] [address] 27343 Platelet mean volume (Bld) [Entitic vol] 9.5 fL Normal 9.0-12.7 [facility] Comment on above: Order Comment: Speci men Type: BLOOD SPECIMEN Ordering Facility: [facility] Address: [address] [place] [address] Performed By: #### 2 4323-8 #### [facility] CLIA [id number] [address] [place] [address] 07619 Platelets (Bld) [#/Vol] 286 10*3/uL Normal 150-400 [facility] Comment on above: Order Comment: Speci men Type: BLOOD SPECIMEN Ordering Facility: [facility] Address: [address] [place] [address] Performed By: #### 2 4323-8 #### [facility] CLIA [id number] [address] [place] [address] 09425 RBC (Bld) [#/Vol] 4.18 10*6/uL Normal 3.90-5.20 [facility] Comment on above: Order Comment: Speci men Type: BLOOD SPECIMEN Ordering Facility: [facility] Address: [address] [place] [place] [address] Performed By: #### 2 4323-8 #### [facility] CLIA [id number] [address] [place] [address] 23398 WBC (Bld) [#/Vol] 7.11 10*3/uL Normal 3.70-11.00 [facility] Comment on above: Order Comment: Speci men Type: BLOOD SPECIMEN Ordering Facility: [facility] Address: [address] [place] [address] Performed By: #### 2 4323-8 #### [facility] CLIA [id number] [address] [place] [address] Basophils (Bld) [#/Vol] 0.03 10*3/uL <0.11 k/uL [facility] Basophils/100 WBC (Bld) 0.4 % [facility] Differential cell count method Nom (Bld) Auto [facility] Eosinophils (Bld) [#/Vol] 0.12 10*3/uL <0.46 k/uL [facility] Eosinophils/100 WBC (Bld) 1.7 % [facility] Erythrocyte distribution width (RBC) [Ratio] 16.6 % High 11.5 - 15.0 % [facility] Hematocrit (Bld) [Volume fraction] 35.3 % Low 36.0 - 46.0 % [facility] Hemoglobin (Bld) [Mass/Vol] 11.2 g/dL Low 11.5 - 15.5 g/dL [facility] Immature granulocytes (Bld) [#/Vol] <0.10 k/uL [facility] Immature granulocytes/100 WBC (Bld) 0.3 % [facility] Lymphocytes (Bld) [#/Vol] 3.03 10*3/uL 1.00 - 4.00 k/uL [facility] Lymphocytes/100 WBC (Bld) 42.6 % [facility] MCH (RBC) [Entitic mass] 26.8 pg 26.0 - 34.0 pg [facility] MCHC (RBC) [Mass/Vol] 31.7 g/dL 30.5 - 36.0 g/dL [facility] MCV (RBC) [Entitic vol] 84.4 fL 80.0 - 100.0 fL [facility] Monocytes (Bld) [#/Vol] 0.75 10*3/uL <0.87 k/uL [facility] Monocytes/100 WBC (Bld) 10.5 % [facility] Neutrophils (Bld) [#/Vol] 3.16 10*3/uL 1.45 - 7.50 k/uL [facility] Neutrophils/100 WBC (Bld) 44.5 % [facility] Nucleated RBC (Bld) [#/Vol] <0.01 k/uL [facility] Nucleated RBC/100 WBC (Bld) [Ratio] 0.0 /100 WBC [facility] Platelet mean volume (Bld) [Entitic vol] 9.5 fL 9.0 - 12.7 fL [facility] Platelets (Bld) [#/Vol] 286 10*3/uL 150 - 400 k/uL [facility] RBC (Bld) [#/Vol] 4.18 10*6/uL 3.90 - 5.2 0 m/uL [facility] WBC (Bld) [#/Vol] 7.11 10*3/uL 3.70 - 11. 00 k/uL [facility] CNOVSPon 06-22-2022 CNOVSP Visit (SP) Office ([facility]) SHAUNA CHRISTENSEN ([id number]) 1955 F Date Time Provider Department 06/22/22 4:00 PM AUGUSTIN VITAL During your visit today, we recorded the following information about you: Temperature Pulse Respiration Blood pressure 97.7 degrees 84/minute 16/minute 153/82 Weight Height 84.9 kg 1.596 m Augustin Vital MD 06/23/2022 7:43 AM Signed PATIENT NAME: Shauna Christensen DATE: 06/22/2022 PRIMARY CARE PHYSICIAN: Pedro Herrera DO HPI: This is a 67 year old female referred for evaluation of iron deficiency anemia. Apparently the patient was initially diagnosed with iron deficiency anemia after developing a COVID infection in August 2020. Prior to that she had no known hematologic problems. Labs obtained 08/05/2020 revealed a hemoglobin of 10.5 with a low MCV of 77. Apparently she was started on oral iron 1 daily and her anemia improved. She underwent a colonoscopy on 10/13/2020, no abnormalities were seen. Her initial course of oral iron was stopped after several months. Follow-up labs obtained 03/10/2022 revealed recurrent iron deficiency anemia with a hemoglobin of 7.2 and low MCV of 71. She resumed oral iron with ferrous sulfate 1 daily. Subsequent labs 06/02/2022 were improved with a hemoglobin of 10.1. The patient appears to be tolerating her oral iron quite well. Throughout this time she has had no evidence of GI bleeding or other blood loss. On follow-up today she does have mild fatigue, otherwise feels fairly well. No abdominal pain or other GI symptoms. No unusual fevers, night sweats, or weight loss. MEDICATIONS: Current Outpatient Medications Medication Sig atorvastatin (LIPITOR) 10 mg tablet Biotin 10,000 mcg cap 1 capsule. calcium citrate (CALCITRATE) 200 mg (950 mg) tab Cholecalciferol, Vitamin D3, 250 mcg (10,000 unit) cap Take 10,000 Units by mouth. cyanocobalamin (VITAMIN B-12) 100 mcg tab Take 100 mcg by mouth. FEROSUL 325 mg (65 mg iron) tablet Take 1 tablet by mouth daily with breakfast. SYNTHROID 50 mcg tablet metFORMIN (GLUCOPHAGE) 500 mg tablet MV with Gve-Ocaqmile-Gjbsur (CENTRUM SILVER) 0.4 mg-300 mcg- 250 mcg tab See Admin Instructions. oxybutynin ER (DITROPAN XL) 15 mg 24 hr Extended Rel Tab No current facility-administered medications for this visit. ALLERGIES: ALLERGIES No Known Allergies PAST MEDICAL HISTORY: PAST MEDICAL HISTORY Diagnosis Date Arthritis Chronic fatigue syndrome Hypothyroidism Insulin resistance Mixed hyperlipidemia Reddy's neuroma of right foot Obstructive sleep apnea Osteoarthritis of both knees Osteopenia Peripheral venous insufficiency Peripheral venous insufficiency Prediabetes Primary ovarian failure Rosacea Vitamin D deficiency PAST SURGICAL HISTORY: No past surgical history on file. FAMILY HISTORY: No family history on file. SOCIAL HISTORY: Social History Tobacco Use Smoking status: Never Smokeless tobacco: Never Substance Use Topics Alcohol use: Yes Comment: occasional COMPLETE REVIEW OF SYSTEMS: CONSTITUTION: Negative for pain, fatigue, weight loss, or appetite loss. EENT: Negative for mouth soreness, antibiotics use, epistaxis, visual problems, neck or facial swelling, fever/chills, bleeding gums, or hearing loss. CV: Negative for edema, calf swelling, palpitations, or chest pain. RESPIRATORY: Negative for cough, SOB, hemoptysis, or wheezing. GI: Negative for nausea/vomiting, heartburn, vomiting blood, dysphasia, diarrhea, blood in stool, constipation, early satiety, PICA, vegetarian, poor nutrition, abdominal fullness, or abdominal pain. NEUROLOGICAL: Negative for numbness/tingling, dizziness, gait disturbance, headache, speech disturbance, tremor, hemiparesis/sensory loss, or change in mental status. MUSCULOSKELETAL: Negative for joint pain, joint swelling, or proximal muscle weakness. SKIN: Negative for hair loss, bruising, nail changes, rash, itching, pallor, or jaundice. ENDO/URO: Negative for hot flashes, cold or heat intolerance, urinary frequency, urinary hesitancy, menorrhagia, or hematuria. PSYCH: Negative for anxiety, depression, or other. PHYSICAL EXAM: BP 153/82 Pulse 84 Temp 36.5 ?C (97.7 ?F) (Temporal) Resp 16 Ht 159.6 cm (5' 2.84 ) Wt 84.9 kg (187 lb 3.2 oz) SpO2 98% BMI 33.34 kg/m? GENERAL EXAM: Well developed/well nourished; in no acute distress. SKIN: Negative for lesions, rashes, or ulcers on the upper and lower extremities and face. Negative for palpations/nodules, purpura, and ecchymosis. EENT: Negative for conjunctiva, mucosal pallor, JVD, LAP, thyromegaly, and glossitis. Supple AND PERRL. EXTREMITIES: Negative for cyanosis, clubbing, and crepitus. LUNGS: Negative to auscultation, respiratory effort, and percussion. CARDIOVASCULAR: Regular rate. Negative for murmurs/S3S4/abnormal soun (more content not included)... Normal [facility] Ferritin SerPl-mCncon 2022 Ferritin [Mass/Vol] 30.6 ng/mL Normal 14.7-205.1 [facility] Comment on above: Order Comment: Dior rabago Type: BLOOD SPECIMEN Ordering Facility: [facility] Address: [address] [place] [address] Performed By: #### 2 276-4, 2132-9, 79196-9 #### [facility] CLIA [id number] [address] [facility] [place] [address] [place] Iron and Iron binding capaci ty panelon 06-22-2022 Iron [Mass/Vol] 31 ug/dL Low 41-186 [facility] Comment on above: Order Comment: Speci men Type: BLOOD SPECIMEN Ordering Facility: [facility] Address: [address] Performed By: #### 2 276-4, 2131-9, 70389-4 #### [facility] CLIA [id number] [facility] [place] [address] [place] Iron binding capacity [Mass/Vol] 370 ug/dL Normal 232-386 [facility] Comment on above: Order Comment: Speci men Type: BLOOD SPECIMEN Ordering Facility: [facility] Address: [address] Performed By: #### 2 276-4, 9, 58845-7 #### [facility] CLIA [id number] [address] [place] [address] [place] Iron/TIBC [Molar ratio] 8.4 % Low 15.0-57.0 [facility] Comment on above: Order Comment: Speci men Type: BLOOD SPECIMEN Ordering Facility: [facility] Address: [address] Performed By: #### 2 276-4, 9, 93451-4 #### [facility] CLIA [id number] [address] [place] [address] [place] RETIC COUNTon 06-22-2022 Reticulocytes (Bld) [#/Vol] 0.58700 10*3/uL 0.018 - 0.100 M/uL [facility] Retics #on 06-22-2022 Reticulocytes (Bld) [#/Vol] 0.54651 10*3/uL Normal 0.018-0.100 [facility] Comment on above: Order Comment: Speci men Type: BLOOD SPECIMEN Ordering Facility: [facility] Address: [address] [place] [address] Performed By: #### 2 4323-8 #### [facility] CLIA [id number] [address] [place] [address]472 Reticulocytes (Bld) [#/Vol]o n 06-22-2022 Reticulocytes/100 RBC (Bld) 1.7 % Normal 0.4-2.0 [facility] Comment on above: Order Comment: Speci men Type: BLOOD SPECIMEN Ordering Facility: [facility] Address: [address] [place] [address] Performed By: #### 2 4323-8 #### [facility] CLIA [id number] [address] [place] [address]20 Reticulocytes/100 RBC (Bld) 1.7 % 0.4 - 2.0 % [facility] Vit B12 SerPl-mCncon 023 Cobalamin (Vitamin B12) [Mass/Vol] pg/mL High 232-1245 [facility] Comment on above: Order Comment: Speci men Type: BLOOD SPECIMEN Ordering Facility: [facility] Address: [address] [place] [address] Performed By: #### 2 276-4, 2132-9, 73726-5 #### [facility] CLIA [id number] [address] [address] [place] Provider Orderson 06-21-2022 Provider Orders [id number] 10 [id number]#1.0 [facility] Coding Summaryon 06-20-2022 Coding Summary HTMLBase 64 ZsntjdhsBHx8mZp+PGhlYW Q+ZV4IRBVqG99sfMEetZ7M Z9jCKW7JYBSHWDDFWO9GYS 7rrOM3DUhxM9WgdnZy OhzpuQJsLS72KPg9DRD3pS epFRcfrJ9skDDkW9w3IrWw WQ87fJ04YPjxQPHqBwV5Bs ZpbjsgbWFy W2rhZjJagCZqDfu+PHRhYm xlIHdpZHRoPScxMDAlJyBz hAdcIO6nHn1gNKKiFTOceQ xhcHNlOiBj s5fgRGHgWSqvCB4jfJrnP7 BqiLZ8PLJzt2y8Ek15oXW+ UHJlAHR8cPujOQgfm840In Pus8ouYLR6 sVHcXYvbZZZ0Q82tn9J9HN NpOSIcKNK2nBN1dI4qoNbb xbelF1XclMYyQhD5QUL1cN QhuK0usCpc wozrcW2pPgk+F83WJD3KQS BYRG4FOrn8M5AbHvhltLS+ UD48ONNpAS16kAWceGYxo4 rirLu9VkIi DUNwCBO4dApnEXutt6KeKE PkA17emYFkb6A7GHVeuBwb yYCpDaTijSY7gG3hIOlrlo mtv4mspzej Cyyke8qsjd48iF55J99dDS npWNOfNXU0HNHvJGEiePcb zf4hfU7dTx8+RFpuh9bjq0 eycDm8UbMu SCVhqvIngXhnCGC2b3WwJl 24O1GpdPclb1GgRnj8hu01 eJHan4I9cNA2KJniYNQyzB 8dGVjgWoF2 WYChFoXacF80xQSoUAvzNz 4sxSmvfJghAC7zXPAlecvk BXUwfH2tIFKxnPHclXdwLJ 4wNTBpbjtm d052XkHwKVU6CBRreLUsV1 QaiL4fIqHoAKWdRKPuL7Tr nTYiAImpW588EAqePyZ6GT ZfzyJvI7Ae UYZjiXamCkY6v4X9Vn3Le8 AefpezOMJ2YBbiCGKrWaW6 XbOeRnJ4S4WxBto0UYGngE laEI6rP2Dh FRAjtwkqhttqvLQ1JUIqBZ LdrJ71nXQwMNreJh6cp2S9 x297SJKoTLBkrX97Fl8onJ ogMTBwdCBU dG4zydach5wpdrrqLdNsLY SqLQg0LXk6IGWopFeeAdCb NRA0TlY4QCH5rSGnuP4esH psiquoxL3n Oyc+T01ucL4yMPB2YVP9xb txXLOqicUbYI69KV28L5Me PjwvdGFibGU+PGRpdiBzdH gaGY4xCjJf n7ujj3XbIPbkY1DcUXJiEQ buHdl1BSBoLHR8yHH5sF8z KWQjKCvqw0E2yEB5J7Zjrm Xptg1vf6wk DMSqJJkvX25tvNKve2Z4MK MdxOX6IBWupChkLtGcoY13 Oyc+ERFuaYrjl5UrHshwh6 vsh0hyoXe5 MwXrOLTyasQmkGqhUWA0a5 NyXv90B60iJFlbDUVjIDWi IEJhURRydIknam0pcT5hQz 8+PGNvbCB3 vYU5kU8rVTHoTgO0MHzeY4 59RbIryNGsXalkk2ptg0hc zVg6DeEaDSOcugJxzExbAR F6k7WzDq62 S14iZUlhGKGdBDLyOYJhPV UrqPmayw0htG5gQa2+PC9j y4qgdn32gL21mNV+PHRkIH T8eXtuSJct KSVfkK9ySVzhDsX2LFRmTb QmwZ59mSQeORdwAo8flDcf cShyES3eAGKsbkttu671Dr Xri3wkMZPq ePJdVFulIDO8D60ak6R4YZ AqPMOeKIZ7fDP5uT1wgSyd bjogbGVmdDsgdmVydGljYW hqSDyjJ323 IHRvcDsnPlBhdGllbnQgTm RzRIy9K9FsUlp8AFDxhXsr DK8jlNQbOWtsVn6xlHduvW jpGS1bRREc apxan476XdOln8qsYHOafS PvWMqsQIF3I65cq4P2HVOm HPLxBSD5wYD9xW4rqWtoxh ogbGVmdDsg tuHdzKemVXkkYObdU027MQ RvcDsnPkJpcnRoIERhdGU6 AQ05SP84wQCml8C1jMZ1G1 BhZGRpbmct zbznzNX5YXFhLGGdcQ79Qo 8snPdqPd7pGCKfRDC6IVBt bZLmO1CceF8sSqNnTQBjSS VnN3SnyCCg NJloJ921WHqvUrI4RPUwpa SpI6JrZQHflWhbVwA9o4A6 Hy7ZZ7E7NB65YW87cBKgo5 R7eTO1C3Ar QARibbwfmubucXQ5UDGuCG ZykI48Sy4vfWmgHx0lNDNg TCI1SQQryAPpP0RqpS8aLp AjMDAwMDAw G2OlaAJsHNafR392CCvbXr D0ESSvpoZuF3FfBYQqiJyy XxX7k5G4In6JWGa9JA80IB 27oYLaq3X3 gWH8H9AuXRWunehfpgdyeJ K3YUElGLAkeH27Uk9nbOle Gv8uCITzPIZ1SPXxjXSkK7 XhuR4lZbKo SWDhXRMyR9CasSOuHXmqQ8 47ILmuQoS5HSIjymHsW4Ps AUGtqCigYfA4d1B9Cp1AKB DlOC00EXQ0 hCZ3RA72DT43R2FzIlmxaQ FibGU+PHRhYmxlIHdpZHRo GWzbOTYySdZzuYmeZD1bNz 9yZGVyLWNv iBtatLWiMsPop0mlALPsGN psQH9chYknZ8JciIP8XEIl h1t2Dx83A39cL0TqvFH+PG QdbEA8xKY5 zD3nOjTsSnO1UPgpS673Sp UnjYBhLkweu2cyy5qxnRz1 KxC5NKQwnkRagWuiAGY4l5 BeUr85A50i IHdpZHRoPSIxNSUiIHZhbG pjya2qxR1mDs5+PGNvbCB3 eRW9qP4iBgJtNyG5YZggI0 49InRvcCIv Sqkme3qwh8ivgAb4JsEqGF KvnyCwkKkfTTA2x4StCa82 P0RrnRtun9ZlUni3gx57gB Xaw3R5jVF2 C9PqPMRpvqirxPCbxLrcGL 2cRHPabqlrBFKahE3cHNGh Q3f7RjAyBtT0YGmqA8Dbbu X0HLWgkIXm EKqlLYQ7Y75pa9M5VZLgND SyVQV0sPB1cS0htAjeoacs bGVmdDsgdmVydGljYWwtYW khZ521LSIe kNqjNHCviH2xOAXqiXPxhQ xtVQ9rBIGqpvbzGfUWJj8T AXiqSWJPIkJaQ1JPLE21CI 88mMDpj9U5 wTM2Q6VeKLVjociwpzvyrE G1ZIHcLRIdjY43uVTkNSez Zz8iy5I8o026QHWhLBImcC 68Ga2swMpf JKAnsTWGwR7yipiwp7ncwp yxAkCsHBCpTDw9ESa7QXPq lOnhGuMiARP5SvS4WES8sW AuzP3ziMxk thiqdZ1xUxf+MDkvMDEvMT m1UXegwGL+DCQnNEL7jJsa UVxtCULllR9pQDGuV8v4Nb MtTzI0TSdw T3HvGGEinjykVa49kX1gXd EmEkW6PKcwW8OtdvI8XOCe lJNoMJzyYPJ6C61xg9U5XA MwMDAwMDA7 lOO9mH9pcOgpwzmclHEdrS dgpnAlhBcqHHbbLPlkZ796 CLSzfKexZxU7EAlqLVFvGS 84VV66eRPz i4V5kBI7E3ErTDPdsfpztx wwuEN6STVuVTPljD49tPHr IDcjXt5tl9U1f329SIKpNG YgeZ00Ss4z yFzmLLCckPZMzW5spjgcl7 epamozLgGsGZNjNAu1JBq8 FSLbuDezPhOwHZU5DtO0QQ G4fRDgcY6t mEinwtsbbR3oTpf+RkVNQU jLJI50EG97iCWyc2T9cYN2 X0UfZUNfmqfcliswzHK2BL NbYKYcgX30 wTDgZNjiTi9fq0P2k975DD JzBBKgqO23Jl6cvZslYBPf nVZPrD1pgjfmg0kzdwtcHq AwMDAwMDt0 GTi0LQBlkMbuLgDhGOC5Md I6OCP0rYTjwM0ukCvcvmiu zP5wDvq+SsOjlTSpyN0rDR 91dHBhdGll wfQ5V9HpOuuszSA+PC90YW VmMY04oAFtpUFzo4xfpEm4 YlFdLMYnLNR9hFjnAZyfj8 XiLVTxJ71j oGTqg4R2UNDcdQftcCCaJq TbmBV6iL9pMVvlpamls4dp ineyDpewg6pkxd23aZ21P5 9sIHdpZHRo LWIeZUVlUVQxeKwlhc2ssO 9wIi8+VJFayRM5eZM3nO9m NmMhAsX1LAjvR241CfVxuA VoZzghm7ix z9kmwUc7CwPfYAWhycMhhL dyPKI5x3ExRh15Y11gCPba ZHRoPSIyMCUiIHZhbGlnbj 4nyV9wJh0+ NL7xp7zyvo09yL96gAJ+PH LbEMH5oCbnQBvhNFGsaT2c RTbmNbF2HUDaDuHulH86jF FzVOalLw9f hUcecMeoHQ4lWQRejeann7 39JsKxl7huYZZigXDrMOeo HJO9S04sj0Y9ARJsMRPoKL G2zPR9uT9w bGlnbjogbGVmdDsgdmVydG ufXZqsZOeyX192TCLfgQga NxKpiUSdM0cxxzFROB2kFm wvdGQ+PHRk VRW7eTvtFQpsHMRkmJ4qGC MxM4l7RzIsDwJ5CJgpS3Ji csQ6ZEGtaYCmDIOzuPONdF 8egtoac0bc duusWqDrMUEkZHm0HMa3US TqiEpiJaKnADL3DuH9CHL2 tNLxnQ4uiDfcahbhkR6gNe c+RklOOjwv dGQ+ILMjNHB0eDzbMRmoWD TjbO3oLIIsS6m6PeUoSdZ4 UGwtV6JydrL7YRAtuIAcUQ EjdFUTqQ0l vpixk7ndehkzIyIqAHGsTR f4KMk5CQAwgCzwOtAsEWS1 WvY9WLS4jKApbH6ghTgpcx obeI6fMgc+ TVJOOjwvdGQ+YOQnQDG6xN dhOOrpWYMrhJ7jAADmH8b8 BpGhKwG6KBciR5IsubM8SO JvbGQgMTBw iYVEhB5hrzlii3zdeharCs WbNLFsMCq4EUk5AHTusZwn NdZbYTC4NjD7PBQ1dRMgqD 1hbGlnbjog dG0oPca+OFR6RTV1WY97DI 37L9TtKjrbbBEmzRU+PHRh YmxlIHdpZHRoPScxMDAlJy GurOegAG5d Ym9 (more content not included)... [facility] Provider Orderson 06-16-2022 Provider Orders [id number] 0OTGTIFF [facility] US Venous, Unilat, Lower Ext Righton 06-12-2022 US Venous, Unilat, Lower Ext Right History: Pain, history of varicose vein surgery VENOUS DUPLEX ULTRASOUND OF THE RIGHT LOWER EXTREMITY CLINICAL HISTORY: Joint pain COMPARISON: NONE AVAILABLE TECHNIQUE: Sonographic imaging of the deep venous system of the right lower extremity was performed by a registered client executive and the images were submitted for interpretation. FINDINGS: The common femoral, superficial femoral, and popliteal veins demonstrate normal color flow, augmentation, and compressibility. In the region of concern is in the area of the greater saphenous vein. There is no flow and noncompressibility of the greater saphenous vein. IMPRESSION: The study is negative for DVT of the right lower extremity. There is an occluded greater saphenous vein which is considered an superficial thrombus Report reported and signed by RU RAMIRES on 06/12/2022 1248 Normal [facility] CBC AUTO DIFFon 06-02-2022 BASO # 0.0 103/ul Normal 0.0-0.1 [facility] Comment on above: Performed By: #### C BC ####[facility] [address] [place] [address]Dr. Odilia Ceron Basophils/100 WBC (Bld) 0.4 % Normal 0.2-2.0 [facility] Comment on above: Performed By: #### C BC ####[facility] [address] [place] [address]Dr. Odilia Ceron EO # 0.1 103/ul Normal 0.0-0.7 [facility] Comment on above: Performed By: #### C BC ####[facility] [address] [place] [address]Dr. Odilia Ceron Eosinophils/100 WBC (Bld) 1.7 % Normal 0.9-7.0 [facility] Comment on above: Performed By: #### C BC ####[facility] [address] [place] [address]Dr. Odilia Ceron Erythrocyte distribution width (RBC) [Ratio] 20.5 % Critically high 11.0-15.0 [facility] Comment on above: Performed By: #### C BC ####[facility] [address] [place] [address]Dr. Odilia Ceron Hematocrit (Bld) [Volume fraction] 32.1 % Critically low 36.0-48.0 [facility] Comment on above: Performed By: #### C BC ####[facility] [address] [place] [id number]. Odilia Ceron Hemoglobin (Bld) [Mass/Vol] 10.1 g/dL Critically low 12.0-16.0 [facility] Comment on above: Performed By: #### C BC ####[facility] [address] [place] [id number]. Odilia Ceron IG # 0.01 10e3/ul Normal 0.00-0.03 [facility] Comment on above: Performed By: #### C BC ####[facility] [address] [place] [address]Dr. Odilia Osmany IG % 0.2 % Normal 0.0-0.5 [facility] Comment on above: Performed By: #### C BC ####[facility] [address] [place], [place] [address]Dr. Odilia Osmany LYMPH # 1.9 103/ul Normal 1.2-3.8 [facility] Comment on above: Performed By: #### C BC ####[facility] [address] [place] [address]Dr. Odilia Osmany Lymphocytes/100 WBC (Bld) 40.8 % Normal 20.5-60.0 [facility] Comment on above: Performed By: #### C BC ####[facility] [address] [place] [address]Dr. Odilia Ceron MANUAL DIFF REQ NO Normal [facility] Comment on above: Performed By: #### C BC ####[facility] [address] [place] [id number]. Odilia Ceron MCH (RBC) [Entitic mass] 25.9 pg Critically low 26.7-34.0 [facility] Comment on above: Performed By: #### C BC ####[facility] [address] [place] [id number]. Odilia Osmany MCHC (RBC) [Mass/Vol] 31.5 g/dL Normal 29.9-35.2 [facility] Comment on above: Performed By: #### C BC ####[facility] [address] [place] [address]Dr. Odilia Ceron MCV (RBC) [Entitic vol] 82.3 fL Normal 81.0-99.0 [facility] Comment on above: Performed By: #### C BC ####[facility] [address] [place] [address]Dr. Odilia Ceron MONO # 0.6 103/ul Normal 0.3-0.8 [facility] Comment on above: Performed By: #### C BC ####[facility] [address] [place] [address]Dr. Odilia Osmany Monocytes/100 WBC (Bld) 12.2 % Critically high 1.7-12.0 [facility] Comment on above: Performed By: #### C BC ####[facility] [address] [place], [place] [address]Dr. Odilia Ceron NEUT # 2.1 103/ul Normal 1.4-6.5 [facility] Comment on above: Performed By: #### C BC ####[facility] [address] [place], [place] [id number]. Odilia Osmany Neutrophils/100 WBC (Bld) 44.7 % Normal 43.0-75.0 [facility] Comment on above: Performed By: #### C BC ####[facility] [address] [place] [address]Dr. Odilia Osmany Platelet mean volume (Bld) [Entitic vol] 9.5 fL Normal 9.5-13.5 [facility] Comment on above: Performed By: #### C BC ####[facility] [address] [place] [address]Dr. Odilia Osmany PLT 337 103/ul Normal 150-450 [facility] Comment on above: Performed By: #### C BC ####[facility] [address] [place] [address]Dr. Odilia Ceron RBC 3.90 106/ul Critically low 4.20-5.[address] [facility] Comment on above: Performed By: #### C BC ####[facility] [address] [place] [address]Dr. Odilia Ceron WBC 4.7 103/ul Normal 4.0-11.0 [facility] Comment on above: Performed By: #### C BC ####[facility] [address] [place] [address]Dr. Odilia Ceron FERRITINon 06-02-2022 Ferritin [Mass/Vol] 19.0 ng/mL Normal 8.0-252.0 [facility] Comment on above: Performed By: #### F T4, FETIBC, FERR ####[facility] [address] [place] [address]Dr. Odilia Ceron FREE T4on 06-02-2022 Free T4 [Mass/Vol] 0.74 ng/dL Critically low 0.76-1.46 [facility] Comment on above: Performed By: #### F T4, FETIBC, FERR ####[facility] [address] [place] [address]Dr. Odilia Ceron GLYCOHEMOGLOBIN A1Con 2021 ADA RECOMMENDATION SEE BELOW Normal [facility] Comment on above: Result Comment: ADA RECOMMENDED LIMIT 4.0 - 6.0 ADA THERAPEUTIC TARGET < 7.0 ACTION SUGGESTED > 7.0 Performed By: #### A 1C #### [facility] [address] [place] [address] [address] Odilia Ceron Glucose [Mass/Vol] 91 mg/dL Normal 74-106 [facility] Comment on above: Performed By: #### A 1C #### [facility] [address] [place] [address] [address] Odilia Ceron Performed By: #### T SH, LIPID, CMP #### [facility] [address] [place] [address] [address] Odilia Ceron HbA1c (Bld) [Mass fraction] 4.8 % Normal 4.5-6.2 [facility] Comment on above: Performed By: #### A 1C #### [facility] [address] [place] [address] [address] Odilia Ceron IRON AND TIBCon 06-02-2022 % SATURATION 5.4 % Normal [facility] Comment on above: Performed By: #### F T4, FETIBC, FERR ####[facility] [address] [place] [id number] Ceron Iron [Mass/Vol] 19.0 ug/dL Critically low 50.0-170.0 [facility] Comment on above: Performed By: #### F T4, FETIBC, FERR ####[facility] [address] [place], [place] [address]QwNoemi Ceron TIBC DIRECT 353.0 ug/dL Normal 250.0-450.0 [facility] Comment on above: Performed By: #### F T4, FETIBC, FERR ####[facility] [address] [place] [id number] Ceron LIPID PROFILEon 06-02-2022 CHOL-HDL RATIO NORM SEE BELOW Normal [facility] Comment on above: Result Comment: 3.3 - 4.4 LOW RISK 4.4 - 7.1 AVERAGE RISK 7.1 - 11.0 MODERATE RISK >11.0 HIGH RISK Performed By: #### T SH, LIPID, CMP #### [facility] [address] [place] [address] [address] Odilia Ceron Cholesterol [Mass/Vol] 156 mg/dL Normal <=200 [facility] Comment on above: Performed By: #### T SH, LIPID, CMP #### [facility] [address] [place] [address] [address] Odilia Ceron Cholesterol in HDL [Mass/Vol] 50 mg/dL Normal 40-60 [facility] Comment on above: Performed By: #### T SH, LIPID, CMP #### [facility] [address] [place] [address] [address] Odilia Ceron Cholesterol in LDL [Mass/Vol] 73.0 mg/dL Normal [facility] Comment on above: Performed By: #### T SH, LIPID, CMP #### [facility] [address] [place] [address] [address] Odilia Ceron Cholesterol.total/C holesterol in HDL [Mass ratio] 3.1 {ratio} Normal [facility] Comment on above: Performed By: #### T JAY, LIPID, CMP #### [facility] [address] [place] [address] [address] Odilia Ceron HDL NORMAL > or = 60 mg/dl - LO W CARDIOVASCULAR RISK <40 mg/dl - HIGH CARDIOVASCULAR RISK Normal [facility] Comment on above: Performed By: #### T SH, LIPID, CMP #### [facility] [address] [place] [address] [address] Odilia Ceron LDL CALC NORMAL SEE BELOW Normal [facility] Comment on above: Result Comment: <100 mg/dl OPTIMAL 100 - 129 mg/dl NEAR OR ABOVE OPTIMAL 130 - 159 mg/dl BORDERLINE HIGH 160 - 189 mg/dl HIGH >190 mg/dl VERY HIGH Performed By: #### T SH, LIPID, CMP #### [facility] [address] [place] [address] [address] Odilia Ceron Triglyceride [Mass/Vol] 165 mg/dL Critically high <=150 [facility] Comment on above: Performed By: #### T JAY, LIPID, CMP #### [facility] [address] [place] [address] [address] Odilia Ceron VLDL CALC 33.0 mg/dL Normal [facility] Comment on above: Performed By: #### T JAY, LIPID, CMP #### [facility] [address] [place] [address] Dr. Odilia Ceron PROF 14(COMP METB)on 022 Albumin [Mass/Vol] 3.3 g/dL Critically low 3.4-5.0 [facility] Comment on above: Performed By: #### T SH, LIPID, CMP #### [facility] [address] [place] [address] Dr. Odilia Ceron Albumin/Globulin [Mass ratio] 1.0 {ratio} Normal [facility] Comment on above: Performed By: #### T SH, LIPID, CMP #### [facility] [address] [place] [address] [address] Odilia Ceron ALP [Catalytic activity/Vol] 90 U/L Normal 46-116 [facility] Comment on above: Performed By: #### T SH, LIPID, CMP #### [facility] [address] [place] [address] Dr. Odilia Ceron ALT [Catalytic activity/Vol] 25 U/L Normal 14-59 [facility] Comment on above: Performed By: #### T SH, LIPID, CMP #### [facility] [address] [place] [address] Dr. Odilia Ceron Anion gap [Moles/Vol] 10.0 mmol/L Normal [facility] Comment on above: Performed By: #### T SH, LIPID, CMP #### [facility] [address] [place] [address] Dr. Odilia Ceron AST [Catalytic activity/Vol] 25 U/L Normal 15-37 [facility] Comment on above: Performed By: #### T SH, LIPID, CMP #### [facility] [address] [place] [address] Dr. Odilia Ceron Bilirubin [Mass/Vol] 0.3 mg/dL Normal 0.2-1.0 [facility] Comment on above: Performed By: #### T SH, LIPID, CMP #### [facility] [address] [place] [address] Dr. Odilia Ceron Calcium [Mass/Vol] 8.9 mg/dL Normal 8.5-10.1 [facility] Comment on above: Performed By: #### T SH, LIPID, CMP #### [facility] [address] [place] [address] Dr. Odilia Ceron Chloride [Moles/Vol] 106 mmol/L Normal 98-107 [facility] Comment on above: Performed By: #### T SH, LIPID, CMP #### [facility] [address] [place] [address] Dr. Odilia Ceron CO2 [Moles/Vol] 30.0 mmol/L Normal 21.0-32.0 [facility] Comment on above: Performed By: #### T SH, LIPID, CMP #### [facility] [address] [place] [address] Dr. Odilia Ceron Creatinine [Mass/Vol] 0.83 mg/dL Normal 0.55-1.02 [facility] Comment on above: Performed By: #### T JAY, LIPID, CMP #### [facility] [address] [place] [address] Dr. Odilia Ceron EGFR-AF MONTSERRATIAN >60 Normal >=60 [facility] Comment on above: Performed By: #### T JAY, LIPID, CMP #### [facility] [address] [place] [address] [address] Odilia Ceron EGFR-NON AF MONTSERRATIAN >60 Normal >=60 [facility] Comment on above: Performed By: #### T JAY, LIPID, CMP #### [facility] [address] [place] [address] Dr. Odilia Ceron Globulin (S) [Mass/Vol] 3.4 g/dL Normal [facility] Comment on above: Performed By: #### T JAY, LIPID, CMP #### [facility] [address] [place] [address] Dr. Odilia Ceron Potassium [Moles/Vol] 4.0 mmol/L Normal 3.5-5.1 [facility] Comment on above: Performed By: #### T JAY LIPID, CMP #### [facility] [address] [place] [address] Dr. Odilia Ceron Protein [Mass/Vol] 6.7 g/dL Normal 6.4-8.2 [facility] Comment on above: Performed By: #### T JAY, LIPID, CMP #### [facility] [address] [place] [address] Dr. Odilia Ceron Sodium [Moles/Vol] 142 mmol/L Normal 136-145 [facility] Comment on above: Performed By: #### T JAY, LIPID, CMP #### [facility] [address] [place] [address] Dr. Odilia Ceron Urea nitrogen [Mass/Vol] 16.0 mg/dL Normal 7.0-18.0 [facility] Comment on above: Performed By: #### T JAY, LIPID, CMP #### [facility] [address] [place] [address] [address] Odilia Ceron Urea nitrogen/Creatinine [Mass ratio] 19.3 mg/mg Normal [facility] Comment on above: Performed By: #### T SH, LIPID, CMP #### [facility] [address] [place] [address] Dr. Odilia Ceron TSHon 06-02-2022 TSH 3.036 uIU/mL Normal 0.358-3.740 [place] Comment on above: Performed By: #### T SH, LIPID, CMP #### [facility] [address] [place] [address] [address] Odilia Ceron VC INJ SCL NAVI REPAIRER AND CHECKER VEINSon 1 VC INJ SCL NAVI REPAIRER AND CHECKER VEINS Patient: SHAUNA CHRISTENSEN Exam Date: 06/01/2022 : 1955 Gender:F Ordering : DR MAYANK VELASQUEZ M.D. Admission #: [id number] Family : Order #: [id number] CLICK HERE TO VIEW EXAM CORRECTION: changed veins injected Corrected on: 06/01/2022; RADIOLOGY REPORT PROCEDURE: VEIN CENTER INJECTION SCLEROSING SOLUTION MULTIPLE VEINS SAME COMPARISON: VC INJ SCL NAVI REPAIRER AND CHECKER VEINS, 05/25/2022. VC INJ SCL NAVI REPAIRER AND CHECKER VEINS, 05/19/2022. INDICATIONS: Pain co-occurrent and due to varicose veins of bilateral legs I83.813 PROCEDURE NOTE: The risks and benefits of the procedure were explained at length to the patient and informed written consent was obtained. Dom Bergeron was present and performed injections with supervision. The procedure was performed under sterile technique. The patient's leg was wrapped with Coban and postprocedural verbal and written instructions provided. SCLEROSANT: 2 cc, 0.5% polidocanol VEIN(S) INJECTED: 27 veins in the left leg VISUALIZATION: Ultrasound was not used to visualize the sclerosant ANESTHESIA Supercooled air COMPLICATIONS: None CONCLUSION: 1. Technically successful sclerotherapy as described Dictated by: Mayank Velasquez MD on 06/01/2022 at 09:50 Approved by: Mayank Velasquez MD on 06/01/2022 at 09:58 Dictated by: Mayank Velasquez MD on 06/01/2022 at 10:05 Approved by: Mayank Velasquez MD on 06/01/2022 at 10:05 Normal [facility] VC INJ SCL NAVI REPAIRER AND CHECKER VEINSon 1 07-26-2021 VC INJ SCL NAVI REPAIRER AND CHECKER VEINS Patient: SHAUNA CHRISTENSEN Exam Date: 05/25/2022 : 1955 Gender:F Ordering : DR MAYANK VELASQUEZ M.D. Admission #: [id number] Family : Order #: [id number] CLICK HERE TO VIEW EXAM RADIOLOGY REPORT PROCEDURE: VEIN CENTER INJECTION SCLEROSING SOLUTION MULTIPLE VEINS SAME COMPARISON: VC INJ SCL NAVI REPAIRER AND CHECKER VEINS, 05/19/2022. INDICATIONS: Pain co-occurrent and due to varicose veins of bilateral legs PROCEDURE NOTE: The risks and benefits of the procedure were explained at length to the patient and informed written consent was obtained. Dom Bergeron R.N. was present and assisted. The procedure was performed under sterile technique. The patient's leg was wrapped with Coban and postprocedural verbal and written instructions provided. SCLEROSANT: 2 cc, 0.5% polidocanol VEIN(S) INJECTED: 18 veins in the right leg VISUALIZATION: Ultrasound was not used to visualize the sclerosant ANESTHESIA Supercooled air COMPLICATIONS: None CONCLUSION: 1. Technically successful sclerotherapy as described Dictated by: Candice Best M.D. on 05/25/2022 at 15:46 Approved by: Candice Best M.D. on 05/25/2022 at 15:47 Normal [facility] VC INJ SCL NAVI REPAIRER AND CHECKER VEINSon 1 07-20-2021 VC INJ SCL NAVI REPAIRER AND CHECKER VEINS Patient: SHAUNA CHRISTENSEN Exam Date: 05/19/2022 : 1955 Gender:F Ordering : DR MAYANK VELASQUEZ M.D. Admission #: [id number] Family : Order #: [id number] CLICK HERE TO VIEW EXAM RADIOLOGY REPORT PROCEDURE: VEIN CENTER INJECTION SCLEROSING SOLUTION MULTIPLE VEINS SAME COMPARISON: None. INDICATIONS: Pain co-occurrent and due to varicose veins of bilateral legs I83.813 PROCEDURE NOTE: The risks and benefits of the procedure were explained at length to the patient and informed written consent was obtained. The procedure was performed under sterile technique. The patient's leg was wrapped with Coban and postprocedural verbal and written instructions provided. SCLEROSANT: 4 cc, 0.5% polidocanol VEIN(S) INJECTED: 18 veins in the right leg VISUALIZATION: Ultrasound was not used to visualize the sclerosant ANESTHESIA Supercooled air COMPLICATIONS: None CONCLUSION: 1. Technically successful sclerotherapy as described Dictated by: Mayank Velasquez MD on 05/19/2022 at 08:33 Approved by: Mayank Velasquez MD on 05/19/2022 at 08:33 Normal [facility] VC CONSULT FOLLOWUPon 2021 VC CONSULT FOLLOWUP Patient: PRO CHRITSENSEN RA Exam Date: 05/05/2022 : 1955 Gender:F Ordering : DR MAYANK VELASQUEZ M.D. Admission #: [id number] Family : Order #: [id number] CLICK HERE TO VIEW EXAM RADIOLOGY REPORT PROCEDURE: VEIN CENTER CONSULTATION FOLLOWUP VEIN CENTER - OFFICE VISIT FOLLOW UP COMPARISON: VC CONSULT FOLLOWUP, 04/24/2022. VC CONSULT FOLLOWUP, 03/24/2022. PROGRESS NOTES: The patient reports no significant pain or discomfort following micro foam chemical ablation of the right leg. The patient did wear her compression stockings. The patient has followed our recommendations to walk 20-30 minutes once or twice per day since the procedure. Physical exam demonstrates no significant residual incompetent patent varicose veins. Thrombosed varicose veins can be palpated. Bilateral reticular and spider veins. Review of the ultrasound performed the same day demonstrates occlusive thrombus extending throughout the treated right leg incompetent varicose veins. Persistent stable thrombus is identified in a 9 cm segment the right posterior tibial vein. The patient expressed a desire to proceed with treatment of bilateral reticular and spider veins injection sclerotherapy. I recommended that we defer treatment of the left leg great saphenous vein at this time due to only mild proximal disease, the patient did agree. IMPRESSION: 1. Successful ablation of right leg incompetent varicose veins 2. Persistent bilateral reticular and spider veins PLAN: Injection sclerotherapy Nurse notes, history and physical were reviewed and confirmed, see attached forms. The nurse was present throughout the physical exam and consultation Dictated by: Mayank Velasquez MD on 05/05/2022 at 09:47 Approved by: Mayank Velasquez MD on 05/05/2022 at 09:49 Normal [facility] VC EXT VENOUS RT LIMITEDon 1 07-06-2021 VC EXT VENOUS RT LIMITED Patient: SHAUNA CHRISTENSEN Exam Date: 05/05/2022 : 1955 Gender:F Ordering : DR MAYANK VELASQUEZ M.D. Admission #: [id number] Family : Order #: [id number] CLICK HERE TO VIEW EXAM RADIOLOGY REPORT PROCEDURE: VEIN CENTER EXTREMITY VENOUS RIGHT LIMITED COMPARISON: VC EXT VENOUS RT LIMITED, 04/24/2022. VC EXT VENOUS RT LIMITED, 03/24/2022. INDICATIONS: Phlebitis and thrombophlebitis of superficial veins of right lower extremity I80.01 TECHNIQUE: Lower extremity russo scale and Duplex Doppler evaluation of the deep venous system from the inguinal ligament through the calf veins. FINDINGS: REGION: Right lower extremity. THROMBI: Positive for DVT. Chemically induced thrombus in varicose vein mid-distal thigh and associated roller gold leaf. Stable thrombus in PTV 9 cm segment. COMPRESSIBILITY: Non-compressible AND partially compressible segments corresponding to thrombus. FLOW: Absent flow corresponding to thrombus OTHER: No significant patent varicose veins visualized. *Exam performed in accordance with [facility] practice guidelines- Peripheral venous ultrasound, August 28, 2009. CONCLUSION: Post ablation occlusion of treated varicose veins Dictated by: Mayank Velasquez MD on 05/05/2022 at 09:33 Approved by: Mayank Velasquez MD on 05/05/2022 at 09:47 Normal [facility] VC INJ FOAM SCLERO W US MLTI on 05-01-2022 VC INJ FOAM SCLERO W US MLTI Patient: SHAUNA CHRISTENSEN Exam Date: 05/01/2022 : 1955 Gender:F Ordering : DR MAYANK VELASQUEZ M.D. Admission #: [id number] Family : Order #: [id number] CLICK HERE TO VIEW EXAM RADIOLOGY REPORT PROCEDURE: VEIN CENTER INJECTION FOAM SCLEROSING SOLUTION WITH ULTRASOUND MULTIPLE VEINS COMPARISON: VC INJ FOAM SCLERO W US MLTI, 04/17/2022. Pre-operative Diagnosis: CEAP class C3 venous insufficiency with pain, tenderness, edema and incompetent branch saphenous vein, chronic venous insufficiency right leg secondary to venous incompetence Post-operative Diagnosis: CEAP class C3 venous insufficiency with pain, tenderness, edema and incompetent branch saphenous vein, chronic venous insufficiency right leg secondary to venous incompetence Procedure Performed: 1. Ultrasound-guided microfoam chemical ablation with Varithena(r) 2. Intraoperative ultrasound guidance Physician: Candice Best M.D. Anesthesia: None. Indications for Procedure: 67 year old female. Symptoms including lower extremity pain, muscle cramping, and swelling for many years despite conservative medical therapy including medical compression stockings, exercise and analgesics. Prior procedures include: Endovenous laser ablation and microfoam chemical ablation. Multiple incompetent varicosities of the right leg. Duplex scan showed reflux and enlarged diameters up to 4 mm. The patient has undergone informed consent including management options where the complications of infection, bleeding, pain, and skin injury were discussed. Particular attention was spent discussing thrombus extension and deep vein thrombosis as well as the possibility of pulmonary embolus and treatment with oral or injectable blood thinners. Procedure: The patient walked to the procedure room. All applicable staff donned appropriate apparel. A procedure timeout was performed to confirm correct patient, correct extremity, correct procedure, and correct room set-up including presence of all applicable supplies, devices, and drugs. A duplex ultrasound, performed by myself confirmed the location and incompetence of branch saphenous varicosities and their course was marked on the skin together with the dilated tributaries. The extent of treatment of the veins and the associated varicosities was determined through ultrasound mapping. The skin was prepped and then punctured with a butterfly needle and advanced under ultrasound guidance. The Varithena(r) canister was activated and the canister was primed and purged as required in the instructions for use. Varithena(r) was drawn into a sterile syringe. Varithena(r) was slowly administered at 0.5-1.0 cc/second with close observation by ultrasound of its course in the vessels. Total volume utilized was: 6 mL within a 4 mm incompetent branch saphenous varicosity of the right mid anterior thigh. Following administration of Varithena(r), the leg was elevated and the patient was asked to repeatedly dorsiflex the ankle to limit flow of Varithena(r) into perforating veins. Once appropriate spasm had been confirmed in the treated veins, the vascular catheter was removed from the leg and light pressure was applied over the puncture site for hemostasis The common femoral and deep superficial veins were then evaluated for flow and compressibility prior to dressing placement. The lower extremity was kept elevated at 45 degrees above the horizontal and cording material was applied over the saphenous segments and tributaries to allow for eccentric compression over the target vessels including the targeted saphenous vein(s). A multilayer dressing was applied consisting of foam pads, coban and thigh-high 20-30 mm Hg compression elastic support hose were placed on the patient. The leg was lowered only after compression had been applied and the patient was immediately ambulatory. The patient ambulated 10 minutes under supervision and was without apparent concerns at time of release Post-care instructions include advising patient to keep post-treatment bandages in place and dry for 48 hours, avoid extended periods of inactivity, avoid heavy exercise for one week, wear compression stockings on the treated leg continuously for two weeks, to walk daily for 10 minutes over the next month. The patient was instructed to take an anti-inflammatory medicine as needed and to follow up for color duplex scan of the Saphenous veins, the treated branch saphenous varicosities, the adjacent deep veins, and additional treatment within 7 days. PERSONNEL: Dom Bergeron R.N. Dictated by: Candice Best M.D. on 05/01/2022 at 14:26 Approved by: Candice Best M.D. on 05/01/2022 at 14:28 Normal [facility] VC CONSULT FOLLOWUPon 2021 VC CONSULT FOLLOWUP Patient: PRO CHRISTENSEN RA Exam Date: 04/24/2022 : 1955 Gender:F Ordering : DR MAYANK VELASQUEZ M.D. Admission #: [id number] Family : Order #: [id number] CLICK HERE TO VIEW EXAM RADIOLOGY REPORT PROCEDURE: VEIN CENTER CONSULTATION FOLLOWUP VEIN CENTER - OFFICE VISIT FOLLOW UP COMPARISON: VC CONSULT FOLLOWUP, 03/24/2022. VC CONSULT FOLLOWUP, 03/03/2022. PROGRESS NOTES: The patient reports mild to moderate discomfort of the left medial and posterior lower leg. The patient did not require oral analgesics. The patient has worn her compression stocking. The patient has followed our recommendations to walk 20-30 minutes once or twice per day since the procedure. The patient reports some improvement in her initial presenting symptoms. Physical exam demonstrates multiple thrombosed varicose veins on palpation corresponding to the patient's areas of pain. No areas of erythema or warmth to suggest cellulitis or thrombophlebitis. No active ulceration. Review of the ultrasound performed the same day demonstrates occlusive thrombus extending throughout the treated left leg veins. There is a 9 cm segment of deep vein thrombus in a posterior tibial, this is 8 cm from the popliteal vein. This was discussed with the patient and I started her on aspirin 325 milligrams once per day for the next 10 days The patient expressed a desire to proceed with treatment of left leg disease with intravenous laser ablation of the left great saphenous vein. IMPRESSION: 1. Successful ablation of right leg varicose veins 2. 9 cm segment of deep vein thrombus far removed from the popliteal vein in the right posterior tibial vein PLAN: 1. 325 milligram aspirin once per day for the next 10 days 2. Follow-up of deep vein thrombus before her next procedure 3. Intravenous laser ablation left great saphenous vein Nurse notes, history and physical were reviewed and confirmed, see attached forms. The nurse was present throughout the physical exam and consultation Dictated by: Mayank Velasquez MD on 04/24/2022 at 09:51 Approved by: Mayank Velasquez MD on 04/24/2022 at 09:53 Normal [facility] VC EXT VENOUS RT LIMITEDon 1 06-24-2021 VC EXT VENOUS RT LIMITED Patient: SHAUNA CHRISTENSEN Exam Date: 04/24/2022 : 1955 Gender:F Ordering : DR MAYANK VELASQUEZ M.D. Admission #: [id number] Family : Order #: [id number] CLICK HERE TO VIEW EXAM RADIOLOGY REPORT PROCEDURE: VEIN CENTER EXTREMITY VENOUS RIGHT LIMITED COMPARISON: VC EXT VENOUS RT LIMITED, 03/24/2022. VC EXT VENOUS RT LIMITED, 03/03/2022. INDICATIONS: Phlebitis and thrombophlebitis of superficial veins of right lower extremity I80.01 TECHNIQUE: Lower extremity russo scale and Duplex Doppler evaluation of the deep venous system from the inguinal ligament through the calf veins. FINDINGS: REGION: Right lower extremity. THROMBI: Positive for DVT. Chemically induced thrombus in multiple varicose veins in lower right leg. Thrombus extends into to perforators medial lower leg and a 9cm segment of one PTV. COMPRESSIBILITY: Non-compressible segments. FLOW: Areas of no flow. OTHER: One varicose vein medial distal thigh remains, 4.3 cm. *Exam performed in accordance with [facility] practice guidelines- Peripheral venous ultrasound, August 28, 2009. CONCLUSION: 1. 9 cm segment of deep vein thrombus in the posterior tibial vein likely related to a perforating vein. This is 8 cm from the popliteal vein 2. Post ablation occlusion of treated right leg varicose veins Dictated by: Mayank Velasquez MD on 04/24/2022 at 09:27 Approved by: Mayank Velasquez MD on 04/24/2022 at 09:29 Normal [facility] VC INJ FOAM SCLERO W US MLTI on 04-17-2022 VC INJ FOAM SCLERO W US MLTI Patient: SHAUNA CHRISTENSEN Exam Date: 04/17/2022 : 1955 Gender:F Ordering : DR MAYANK VELASQUEZ M.D. Admission #: [id number] Family : Order #: [id number] CLICK HERE TO VIEW EXAM RADIOLOGY REPORT PROCEDURE: VEIN CENTER INJECTION FOAM SCLEROSING SOLUTION WITH ULTRASOUND MULTIPLE VEINS COMPARISON: None. Pre-operative Diagnosis: CEAP class C3 venous insufficiency with pain, tenderness, edema and incompetent right great saphenous vein and branch saphenous tributaries/varicose vein, chronic venous insufficiency right leg secondary to venous incompetence Post-operative Diagnosis: CEAP class C3 venous insufficiency with pain, tenderness, edema and incompetent right great saphenous vein and branch saphenous tributaries/varicose vein, chronic venous insufficiency right leg secondary to venous incompetence Procedure Performed: 1. Ultrasound-guided microfoam chemical ablation with Varithena(r) 2. Intraoperative ultrasound guidance Physician: Mayakn Velasquez M.D. Anesthesia: None Indications for Procedure: 67-year-old female who presents with a 6 year history of lower extremity pain swelling muscle cramping. The patient failed conservative medical therapy including medical compression stockings, exercise and analgesics. Prior procedures include intravenous laser ablation. Multiple incompetent varicosities of the right leg. Duplex scan showed reflux and enlarged diameters up to 4 mm. The patient underwent informed consent including management options where the complications of infection, bleeding, pain, and skin injury were discussed. Particular attention was spent discussing thrombus extension and deep vein thrombosis as well as the possibility of pulmonary embolus and treatment with oral or injectable blood thinners. Procedure: The patient walked to the procedure room. All applicable staff donned appropriate apparel. A procedure timeout was performed to confirm correct patient, correct extremity, correct procedure, and correct room set-up including presence of all applicable supplies, devices, and drugs. A duplex ultrasound, performed by myself confirmed the location and incompetence of right leg varicose veins and their course marked on the skin together with the dilated tributaries. The extent of treatment of the vein and the associated varicosities was determined through ultrasound mapping. The patient was placed on the operating room table. The limb was prepped. The skin was punctured with a butterfly needle through the skin with the venous access needle and advanced under ultrasound guidance. The target limb was positioned at 45 degrees of elevation in relation to the torso utilizing a foam pad. The Varithena(r) canister was previously activated and the canister was primed and purged as required in the instructions for use. The following injections were made: 5 mL aliquot of Varithena(r) was drawn into a sterile syringe. Injection into the distal incompetent right great saphenous vein. Flow into incompetent varicose veins. 5 mL aliquot of Varithena(r) was drawn into a sterile syringe. Injection into a 4 mm varicose vein lateral distal right lower leg 5 mL aliquot of Varithena(r) was drawn into a sterile syringe. Injection into a 4 mm varicose vein proximal medial right lower leg Varithena(r) was slowly administered at 0.5-1.0 cc/second with close observation by ultrasound of its course in the GSV and injected veins. A total volume of 15 mL of Varithena(r) was used. During administration of Varithena(r), the patient was asked to dorsiflex the ankle to limit flow of Varithena(r) into perforating veins. Once appropriate spasm had been confirmed in the treated veins, the vascular catheter was removed from the leg and light pressure was applied over the puncture site for hemostasis The common femoral and deep superficial veins were then evaluated for flow and compressibility prior to dressing placement. The lower extremity was kept elevated at 45 degrees above the horizontal and cording material was applied over the saphenous segments and tributaries to allow for eccentric compression over the target vessels including the targeted saphenous vein(s). A multilayer dressing was applied consisting of foam pads, coban and thigh-high 20-30 mm Hg compression elastic support hose were placed on the patient. The leg was lowered only after compression had been applied and the patient was immediately ambulatory. The patient ambulated 10 minutes under supervision and was without apparent concerns at time of release Post-care instructions include advising patient to keep post-treatment bandages in place and dry for 48 hours, avoid extended periods of inactivity, avoid heavy exercise for one week, wear compression stockings on the treated leg continuously for two weeks, to walk daily for 10 minutes over the next month. The patient was instructed to take an anti-i (more content not included)... Normal [facility] VC CONSULT FOLLOWUPon 2021 VC CONSULT FOLLOWUP Patient: PRO CHRISTENSEN RA Exam Date: 03/24/2022 : 1955 Gender:F Ordering : DR MAYANK VELASQUEZ M.D. Admission #: [id number] Family : Order #: [id number] CLICK HERE TO VIEW EXAM RADIOLOGY REPORT PROCEDURE: VEIN CENTER CONSULTATION FOLLOWUP VEIN CENTER - OFFICE VISIT FOLLOW UP COMPARISON: VC CONSULT FOLLOWUP, 03/03/2022. PROGRESS NOTES: The patient reports mild discomfort following intravenous laser ablation the right small saphenous vein. The patient did take ibuprofen a single time the day of the procedure. The patient did wear compression stocking. The patient has followed our recommendations to walk 20-30 minutes once or twice per day since the procedure. The patient reports mild to moderate improvement in her initial presenting symptoms of the right leg. The patient does complain of continued left leg symptoms. We discussed intravenous laser ablation of the left great saphenous vein, in light of their only being disease at the proximal portion we decided to defer treatment until the condition has worsened. We will proceed with treatment of the left leg varicose veins with micro foam chemical ablation Review of the ultrasound performed the same day demonstrates occlusive thrombus extending throughout the treated right small saphenous vein. No deep vein thrombus. IMPRESSION: 1. Successful ablation of the right small saphenous vein 2. Persistent bilateral incompetent varicose veins PLAN: Micro foam chemical ablation left leg Nurse notes, history and physical were reviewed and confirmed, see attached forms. The nurse was present throughout the physical exam and consultation Dictated by: Mayank Velasquez MD on 03/24/2022 at 13:48 Approved by: Mayank Velasquez MD on 03/24/2022 at 13:50 Normal [facility] VC EXT VENOUS RT LIMITEDon 1 VC EXT VENOUS RT LIMITED Patient: SHAUNA CHRISTENSEN Exam Date: 03/24/2022 : 1955 Gender:F Ordering : DR MAYANK VELASQUEZ M.D. Admission #: [id number] Family : Order #: [id number] CLICK HERE TO VIEW EXAM RADIOLOGY REPORT PROCEDURE: VEIN CENTER EXTREMITY VENOUS RIGHT LIMITED COMPARISON: VC COMP CONSULTATION, 01/06/2022. VC EXT VENOUS RT LIMITED, 03/03/2022. INDICATIONS: Phlebitis and thrombophlebitis of superficial veins of right lower extremity I80.01 TECHNIQUE: Lower extremity russo scale and Duplex Doppler evaluation of the deep venous system from the inguinal ligament through the calf veins. FINDINGS: REGION: Right lower extremity. THROMBI: Negative for DVT. Heat induced thrombus visualized at distal thigh arising 2.5 cm from the SPJ. The heat induced thrombus extends from distal thigh to distal calf. COMPRESSIBILITY: Non-compressible segments. FLOW: Areas of no flow. *Exam performed in accordance with [facility] practice guidelines- Peripheral venous ultrasound, August 28, 2009. CONCLUSION: Post ablation occlusion of the right small saphenous vein, this was a thigh extension. No deep vein thrombus Dictated by: Mayank Velasquez MD on 03/24/2022 at 11:14 Approved by: Mayank Velasquez MD on 03/24/2022 at 11:15 Normal [facility] VC ENDOVENOUS ABL 1ST V RTon 03-21-2022 VC ENDOVENOUS ABL 1ST V RT Patient: SHAUNA CHRISTENSEN Exam Date: 03/21/2022 : 1955 Gender:F Ordering : DR MAYANK VELASQUEZ M.D. Admission #: [id number] Family : Order #: [id number] CLICK HERE TO VIEW EXAM RADIOLOGY REPORT PROCEDURE: VEIN CENTER ENDOVENOUS ABLATION FIRST VEIN RIGHT COMPARISON: VC ENDOVENOUS ABL 1ST V RT, 02/27/2022. INDICATIONS: Pain co-occurrent and due to varicose veins of bilateral legs I83.813 OPERATIVE REPORT: The risks and benefits of the procedure had been previously discussed, and were rediscussed at length. Informed written consent was obtained by and Dom piña. Time out procedure was performed. The right lower extremity was prepared and draped in the usual sterile fashion to allow knee flexion in the sterile field. Duplex ultrasound probe was draped in a sterile cover, sterile transmission gel was used. Venous mapping was performed with the areas of dilation and large tributaries marked. The total length was 35 cm from the entry 1 cm above the medial malleolus to 3 cm below the thigh extension saphenofemoral junction. The diameter of the greater saphenous vein ranged from 5.5 mm. A 30 gauge needle and 1% buffered lidocaine was used to anesthetize the entry site. A 4 mm incision was made with a scalpel and the saphenous vein was entered percutaneously under direct ultrasound guidance with a micropuncture set, a single stick was successful in gaining access. A micro-guide wire was inserted and the needle removed. A micro-set including a dilator was inserted over the microwire and the needle and dilator were removed. A 0.018 guide wire was inserted through the micro-set and threaded through the saphenous vein to the saphenofemoral junction. The dilator was removed and an introducer sheath was inserted over the wire until the end of the sheath entered the saphenofemoral junction. The dilator and wire were removed and the 600 micron fiber was introduced and placed and positioned so that it extended beyond the sheath and was 3 cm peripheral to the saphenofemoral femoral junction. Final position of the fiber was determined by ultrasound guidance and duplex imaging. Tumescent anesthetic was delivered by ultrasound guidance. Two hundred fifty cc of fluid was delivered along the entire course of the saphenous vein. The solution consisted of 500 cc of normal saline with 20mL of 1% lidocaine and 10 mL of sodium bicarbonate. A final positioning check was made. The energy source was turned on by means of the foot pedal and the fiber and sheath were withdrawn. The total number of Joules delivered was 1579. The laser was active for 197 seconds under continuous pulse, average laser use of 8 J. Laser start time 9:57 a.m. March 21, 2022. Laser stop time 10:02 a.m. March 21, 2022. A duplex ultrasound revealed compressibility and flow at the saphenofemoral junction immediately after the procedure. Hemostasis at the access site was achieved. The skin incision of the saphenous vein was closed with a 4 x 4. A compression stocking was applied. Postop instructions were given. A follow up appointment was recommended and scheduled. The patient tolerated the procedure well and was discharged in good condition. CONCLUSION: 1. Technically successful endovenous laser ablation of the right small saphenous vein. Dictated by: Candice Best M.D. on 03/21/2022 at 10:16 Approved by: Candice Best M.D. on 03/21/2022 at 10:18 Normal [facility] OSMOLALITYon 03-13-2022 Osmolality [Osmolality] 291 mosm/kg Normal 280-301 [facility] Comment on above: Performed By: #### O SMO ####[facility] [address] [place], [place] [address]Dr. Odilia Ceron OSMOLALITY URINEon Osmolality, Urine 647 mOsmol/kg Normal [facility] Comment on above: Result Comment: 24 h r : 300 - 900 Random: 50 - 1400 After 12hr fluid restriction: >850 Performed By: #### O SMOU ####[facility] [address] [place], [place] [address]Dr. Odilia Ceron CBC AUTO DIFFon 03-10-2022 BASO # 0.0 103/ul Normal 0.0-0.1 [facility] Comment on above: Performed By: #### C BC #### [facility] [address] [place] [address] Dr. Odilia Ceron Basophils/100 WBC (Bld) 0.6 % Normal 0.2-2.0 [facility] Comment on above: Performed By: #### C BC #### [facility] [address] [place] [address] Dr. Odilia Ceron EO # 0.2 103/ul Normal 0.0-0.7 [facility] Comment on above: Performed By: #### C BC #### [facility] [address] [place] [address] Dr. Odilia Ceron Eosinophils/100 WBC (Bld) 3.4 % Normal 0.9-7.0 [facility] Comment on above: Performed By: #### C BC #### [facility] [address] [place] [address] Dr. Odilia Ceron Erythrocyte distribution width (RBC) [Ratio] 17.7 % Critically high 11.0-15.0 [facility] Comment on above: Performed By: #### C BC #### [facility] [address] [place] [address] Dr. Odilia Ceron Hematocrit (Bld) [Volume fraction] 24.7 % Critically low 36.0-48.0 [facility] Comment on above: Performed By: #### C BC #### [facility] [address] [place] [address] Dr. Odilia Ceron Hemoglobin (Bld) [Mass/Vol] 7.2 g/dL Critically low 12.0-16.0 [facility] Comment on above: Performed By: #### C BC #### [facility] [address] [place] [address] Dr. Odilia Ceron IG # 0.02 10e3/ul Normal 0.00-0.03 [facility] Comment on above: Performed By: #### C BC #### [facility] [address] [place] [address] Dr. Odilia Ceron IG % 0.4 % Normal 0.0-0.5 [facility] Comment on above: Performed By: #### C BC #### [facility] [address] [place] [address] Dr. Odilia Ceron LYMPH # 2.3 103/ul Normal 1.2-3.8 [facility] Comment on above: Performed By: #### C BC #### [facility] [address] [place] [address] Dr. Odilia Ceron Lymphocytes/100 WBC (Bld) 45.5 % Normal 20.5-60.0 [facility] Comment on above: Performed By: #### C BC #### [facility] [address] [place] [address] Dr. Odilia Ceron MANUAL DIFF REQ NO Normal [facility] Comment on above: Performed By: #### C BC #### [facility] [address] [place] [address] Dr. Odilia Ceron MCH (RBC) [Entitic mass] 20.7 pg Critically low 26.7-34.0 [facility] Comment on above: Performed By: #### C BC #### [facility] [address] [place] [address] Dr. Odilia Ceron MCHC (RBC) [Mass/Vol] 29.1 g/dL Critically low 29.9-35.2 [facility] Comment on above: Performed By: #### C BC #### [facility] [address] [place] [address] Dr. Odilia Ceron MCV (RBC) [Entitic vol] 71.0 fL Critically low 81.0-99.0 [facility] Comment on above: Performed By: #### C BC #### [facility] [address] [place] [address] Dr. Odilia Ceron MONO # 0.6 103/ul Normal 0.3-0.8 [facility] Comment on above: Performed By: #### C BC #### [facility] [address] [place] [address] Dr. Odilia Ceron Monocytes/100 WBC (Bld) 11.6 % Normal 1.7-12.0 [facility] Comment on above: Performed By: #### C BC #### [facility] [address] [place] [address] Dr. Odilia Ceron NEUT # 1.9 103/ul Normal 1.4-6.5 [facility] Comment on above: Performed By: #### C BC #### [facility] [address] [place] [address] Dr. Odilia Ceron Neutrophils/100 WBC (Bld) 38.5 % Critically low 43.0-75.0 [facility] Comment on above: Performed By: #### C BC #### [facility] [address] [place] [address] Dr. Odilia Ceron Platelet mean volume (Bld) [Entitic vol] 9.4 fL Critically low 9.5-13.5 [facility] Comment on above: Performed By: #### C BC #### [facility] [address] [place] [address] Dr. Odilia Ceron PLT 384 103/ul Normal 150-450 [facility] Comment on above: Performed By: #### C BC #### [facility] [address] [address] [address] Odilia Ceron RBC 3.48 106/ul Critically low 4.20-5.40 [facility] Comment on above: Performed By: #### C BC #### [facility] [address] [address] [address] Odilia Ceron WBC 5.0 103/ul Normal 4.0-11.0 [facility] Comment on above: Performed By: #### C BC #### [facility] [address] [address] [address] Odilia Ceron GLYCOHEMOGLOBIN A1Con 2021 ADA RECOMMENDATION SEE BELOW Normal [facility] Comment on above: Result Comment: ADA RECOMMENDED LIMIT 4.0 - 6.0 ADA THERAPEUTIC TARGET < 7.0 ACTION SUGGESTED > 7.0 Performed By: #### A 1C ####[facility] [id number] [address]Dr. Odilia Ceron Glucose [Mass/Vol] 103 mg/dL Normal [facility] Comment on above: Performed By: #### A 1C ####[facility] [address] [address]Dr. Odilia Ceron HbA1c (Bld) [Mass fraction] 5.2 % Normal 4.5-6.2 [facility] Comment on above: Performed By: #### A 1C ####[facility] [address] [address]Dr. Odilia Ceron LIPID PROFILEon 03-10-2022 CHOL-HDL RATIO NORM SEE BELOW Normal [facility] Comment on above: Result Comment: 3.3 - 4.4 LOW RISK 4.4 - 7.1 AVERAGE RISK 7.1 - 11.0 MODERATE RISK >11.0 HIGH RISK Performed By: #### L IPID, CMP #### [facility] [address] [address] [address] Odilia Ceron Cholesterol [Mass/Vol] 134 mg/dL Normal <=200 [facility] Comment on above: Performed By: #### L IPID, CMP #### [facility] [address] [address] [address] Odilia Ceron Cholesterol in HDL [Mass/Vol] 49 mg/dL Normal 40-60 [facility] Comment on above: Performed By: #### L IPID, CMP #### [facility] [address] [address] [address] Odilia Ceron Cholesterol in LDL [Mass/Vol] 67.4 mg/dL Normal [facility] Comment on above: Performed By: #### L IPID, CMP #### [facility] [address] [address] [address] Odilia Ceron Cholesterol.total/C holesterol in HDL [Mass ratio] 2.7 {ratio} Normal [facility] Comment on above: Performed By: #### L IPID, CMP #### [facility] [address] [place] [address] Dr. Odilia Ceron HDL NORMAL > or = 60 mg/dl - LO W CARDIOVASCULAR RISK <40 mg/dl - HIGH CARDIOVASCULAR RISK Normal [facility] Comment on above: Performed By: #### L IPID, CMP #### [facility] [address] [place] [address] Dr. Odilia Ceron LDL CALC NORMAL SEE BELOW Normal [facility] Comment on above: Result Comment: <100 mg/dl OPTIMAL 100 - 129 mg/dl NEAR OR ABOVE OPTIMAL 130 - 159 mg/dl BORDERLINE HIGH 160 - 189 mg/dl HIGH >190 mg/dl VERY HIGH Performed By: #### L IPID, CMP #### [facility] [address] [address] [address] Odilia Ceron Triglyceride [Mass/Vol] 88 mg/dL Normal <=150 [facility] Comment on above: Performed By: #### L IPID, CMP #### [facility] [address] [place] [address] Dr. Odilia Ceron VLDL CALC 17.6 mg/dL Normal [facility] Comment on above: Performed By: #### L IPID, CMP #### [facility] [address] [place] [address] Dr. Odilia Ceron PROF 14(COMP METB)on 022 Albumin [Mass/Vol] 3.5 g/dL Normal 3.4-5.0 [facility] Comment on above: Performed By: #### L IPID, CMP #### [facility] [address] [address] [address] Odilia Ceron Albumin/Globulin [Mass ratio] 1.1 {ratio} Normal [facility] Comment on above: Performed By: #### L IPID, CMP #### [facility] [address] [address] [address] Odilia Ceron ALP [Catalytic activity/Vol] 86 U/L Normal 46-116 [facility] Comment on above: Performed By: #### L IPID, CMP #### [facility] [address] [address] [address] Odilia Ceron ALT [Catalytic activity/Vol] 20 U/L Normal 14-59 [facility] Comment on above: Performed By: #### L IPID, CMP #### [facility] [address] [address] [address] Odilia Ceron Anion gap [Moles/Vol] 15.3 mmol/L Normal [facility] Comment on above: Performed By: #### L IPID, CMP #### [facility] [address] [address] [address] Odilia Ceron AST [Catalytic activity/Vol] 15 U/L Normal 15-37 [facility] Comment on above: Performed By: #### L IPID, CMP #### [facility] [address] [address] [address] Odilia Ceron Bilirubin [Mass/Vol] 0.5 mg/dL Normal 0.2-1.0 [facility] Comment on above: Performed By: #### L IPID, CMP #### [facility] [address] [address] [address] Odilia Ceron Calcium [Mass/Vol] 9.1 mg/dL Normal 8.5-10.1 [facility] Comment on above: Performed By: #### L IPID, CMP #### [facility] [address] [address] [address] Odilia Ceron Chloride [Moles/Vol] 127 mmol/L Critically high 98-107 [facility] Comment on above: Performed By: #### L IPID, CMP #### [facility] [address] [address] [address] Odilia Ceron CO2 [Moles/Vol] 28.1 mmol/L Normal 21.0-32.0 [facility] Comment on above: Performed By: #### L IPID, CMP #### [facility] [address] [address] [address] Odilia Ceron Creatinine [Mass/Vol] 0.90 mg/dL Normal 0.55-1.02 [facility] Comment on above: Performed By: #### L IPID, CMP #### [facility] [address] [place] [address] Dr. Odilia Ceron EGFR-AF MONTSERRATIAN >60 Normal >=60 [facility] Comment on above: Performed By: #### L IPID, CMP #### [facility] [address] [address] [address] Odilia Ceron EGFR-NON AF MONTSERRATIAN >60 Normal >=60 [facility] Comment on above: Performed By: #### L IPID, CMP #### [facility] [address] [address] [address] Odilia Ceron Globulin (S) [Mass/Vol] 3.3 g/dL Normal [facility] Comment on above: Performed By: #### L IPID, CMP #### [facility] [address] [address] [address] Odilia Ceron Glucose [Mass/Vol] 94 mg/dL Normal 74-106 [facility] Comment on above: Performed By: #### L IPID, CMP #### [facility] [address] [address] [address] Odilia Ceron Potassium [Moles/Vol] 5.0 mmol/L Normal 3.5-5.1 [facility] Comment on above: Performed By: #### L IPID, CMP #### [facility] [address] [address] [address] Odilia Ceron Protein [Mass/Vol] 6.8 g/dL Normal 6.4-8.2 [facility] Comment on above: Performed By: #### L IPID, CMP #### [facility] [address] [address] [address] Odilia Ceron Sodium [Moles/Vol] 162 mmol/L Critically high 136-[address] [facility] Comment on above: Performed By: #### L IPID, CMP #### [facility] [address] [address] [address] Odilia Ceron Urea nitrogen [Mass/Vol] 22.0 mg/dL Critically high 7.0-18.0 [facility] Comment on above: Performed By: #### L IPID, CMP #### [facility] [address] [address] [address] Odilia Ceron Urea nitrogen/Creatinine [Mass ratio] 24.4 mg/mg Normal [facility] Comment on above: Performed By: #### L IPID, CMP #### [facility] [address] [address] [address] Odilia Ceron MG MAMM SCREEN 3D AMANDA CADon 03-06-2022 MG MAMM SCREEN 3D AMANDA CAD Patient: SHAUNA CHRISTENSEN Exam Date: 03/06/2022 : 1955 Gender:F Ordering : WERNER BEJARANO Admission #: [id number] Family : Order #: [id number] CLICK HERE TO VIEW EXAM RADIOLOGY REPORT PROCEDURE: MAMMOGRAM SCREENING 3D BILATERAL CAD COMPARISON: MG MAMM SCREEN 3D AMANDA CAD, 01/21/2021. MG MAMM SCREEN AMANDA W CAD, 01/20/2020. INDICATIONS: Screening mammography Calculator Name NCI Breast Cancer Risk Assessment Tool 5 Year Breast Cancer Risk 3.60% Lifetime Breast Cancer Risk 11.30% Personal Breast Cancer No Personal Ovarian Cancer No Treatments None Family Cancers Mother with hodgkins cancer at age 34. LOCATION: [facility] BREAST COMPOSITION: Heterogeneously dense,which may obscure small masses. FINDINGS: DIAGNOSTIC CATEGORY 2--BENIGN FINDING. NO CHANGE FROM COMPARISON. Scattered benign-appearing nodules are present. Scattered benign-appearing calcifications are present. Scattered benign-appearing lymph nodes are present. RIGHT BREAST: No significant suspicious finding. LEFT BREAST: No significant suspicious finding. RECOMMENDATIONS: ROUTINE MAMMOGRAM AND CLINICAL EVALUATION IN 12 MONTHS. PLEASE NOTE: A NORMAL MAMMOGRAM DOES NOT EXCLUDE THE POSSIBILITY OF BREAST CANCER. A CLINICALLY SUSPICIOUS PALPABLE LUMP SHOULD BE BIOPSIED. Dictated by: Mayank Velasquez MD on 03/06/2022 at 10:27 Approved by: Mayank Velasquez MD on 03/06/2022 at 10:29 Normal [facility] VC CONSULT FOLLOWUPon 2021 VC CONSULT FOLLOWUP Patient: PRO CHRISTENSEN Shannan Exam Date: 03/03/2022 : 1955 Gender:F Ordering : DR MAYANK VELASQUEZ M.D. Admission #: [id number] Family : Order #: [id number] CLICK HERE TO VIEW EXAM RADIOLOGY REPORT PROCEDURE: VEIN CENTER CONSULTATION FOLLOWUP VEIN CENTER - OFFICE VISIT FOLLOW UP COMPARISON: None. PROGRESS NOTES: The patient reports mild discomfort following intravenous laser ablation of the right great saphenous vein. The patient took oral over the counter ibuprofen 1 time. The patient has worn her compression stocking. The patient has followed our recommendations to walk 20-30 minutes once or twice per day since the procedure. Physical exam demonstrates no bruising. Thrombosed great saphenous vein can be partially palpated. No areas of erythema or warmth to suggest cellulitis of thrombophlebitis. No active ulceration Review of the ultrasound performed the same day demonstrates occlusive thrombus extending throughout the treated right great saphenous vein with heat induced thrombus 1.6 cm from the saphenofemoral junction. The patient expressed a desire to proceed with treatment of right small saphenous vein with intravenous laser ablation. IMPRESSION: 1. Successful ablation of the right great saphenous vein 2. Persistent incompetent right small saphenous vein PLAN: Endovenous laser ablation right small saphenous vein Nurse notes, history and physical were reviewed and confirmed, see attached forms. The nurse was present throughout the physical exam and consultation Dictated by: Mayank Velasquez MD on 03/03/2022 at 09:36 Approved by: Mayank Velasquez MD on 03/03/2022 at 09:38 Normal [facility] VC EXT VENOUS RT LIMITEDon 0 03-03-2022 VC EXT VENOUS RT LIMITED Patient: NEENA CHRISTENSENA HalieNoemi Exam Date: 03/03/2022 : 1955 Gender:F Ordering : DR MAYANK VELASQUEZ M.D. Admission #: [id number] Family : Order #: [id number] CLICK HERE TO VIEW EXAM RADIOLOGY REPORT PROCEDURE: VEIN CENTER EXTREMITY VENOUS RIGHT LIMITED COMPARISON: None. INDICATIONS: Phlebitis of superficial veins of lower extremity I80.01 TECHNIQUE: Lower extremity russo scale and Duplex Doppler evaluation of the deep venous system from the inguinal ligament through the calf veins. FINDINGS: REGION: Right lower extremity. THROMBI: Negative for DVT. Heat induced thrombus visualized 1.6cm from the SFJ. The heat induced thrombus extends from groin to proximal calf and is patent at mid calf below the area of insert. COMPRESSIBILITY: Noncompressible segments corresponding to thrombus FLOW: Absent flow corresponding to thrombus *Exam performed in accordance with [facility] practice guidelines- Peripheral venous ultrasound, August 28, 2009. 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 No deep vein thrombus Dictated by: Mayank Velasquez MD on 03/03/2022 at 09:21 Approved by: Mayank Velasquez MD on 03/03/2022 at 09:22 Normal [facility] VC ENDOVENOUS ABL 1ST V RTon 02-27-2022 VC ENDOVENOUS ABL 1ST V RT Patient: SHAUNA CHRISTENSEN Exam Date: 02/27/2022 : 1955 Gender:F Ordering : DR MAYANK VELASQUEZ M.D. Admission #: [id number] Family : Order #: [id number] CLICK HERE TO VIEW EXAM RADIOLOGY REPORT PROCEDURE: VEIN CENTER ENDOVENOUS ABLATION FIRST VEIN RIGHT GREAT SAPHENOUS VEIN COMPARISON: None. INDICATIONS: Pain co-occurrent and due to varicose veins of bilateral legs I83.813 OPERATIVE REPORT: The risks and benefits of the procedure had been previously discussed, and were rediscussed at length. Informed written consent was obtained by and Dom piña. Time out procedure was performed. The right lower extremity was prepared and draped in the usual sterile fashion to allow knee flexion in the sterile field. Duplex ultrasound probe was draped in a sterile cover, sterile transmission gel was used. Venous mapping was performed with the areas of dilation and large tributaries marked. The total length was 42 cm from the entry mid calf to 3 cm below the saphenofemoral junction. The diameter of the greater saphenous vein ranged from 4-8 mm. A 30 gauge needle and 1% buffered lidocaine was used to anesthetize the entry site. A 4 mm incision was made with a scalpel and the saphenous vein was entered percutaneously under direct ultrasound guidance with a micropuncture set, a single stick was successful in gaining access. A micro-guide wire was inserted and the needle removed. A micro-set including a dilator was inserted over the microwire and the needle and dilator were removed. A 0.018 guide wire was inserted through the micro-set and threaded through the saphenous vein to the saphenofemoral junction. The dilator was removed and an introducer sheath was inserted over the wire until the end of the sheath entered the saphenofemoral junction. The dilator and wire were removed and the 600 micron fiber was introduced and placed and positioned so that it extended beyond the sheath and was 3 cm peripheral to the saphenofemoral femoral junction. Final position of the fiber was determined by ultrasound guidance and duplex imaging. Tumescent anesthetic was delivered by ultrasound guidance. 275 cc of fluid was delivered along the entire course of the saphenous vein. The solution consisted of 500 cc of normal saline with 20mL of 1% lidocaine and 10 mL of sodium bicarbonate. A final positioning check was made. The energy source was turned on by means of the foot pedal and the fiber and sheath were withdrawn. The total number of Joules delivered was 1951. The laser was active for 244 seconds under continuous pulse, average laser use of 8 J. Laser start time 8:56 a.m. February 27, 2022. Laser stop time 9 o'clock February 27, 2022. A duplex ultrasound revealed compressibility and flow at the saphenofemoral junction immediately after the procedure. Hemostasis at the access site was achieved. The skin incision of the saphenous vein was closed with a 4 x 4. A compression stocking was applied. Postop instructions were given. A follow up appointment was recommended and scheduled. The patient tolerated the procedure well and was discharged in good condition. CONCLUSION: 1. Technically successful endovenous laser ablation of the right great saphenous vein. Dictated by: Mayank Velasquez MD on 02/27/2022 at 09:24 Approved by: Mayank Velasquez MD on 02/27/2022 at 09:29 Normal [facility] IMAGE-GUIDED PAP W/AGE BASED SCR PROTOCOLSon 02-10-2022 COMMENT Normal [facility] Comment on above: Result Comment: This order for age-based cervical cancer and STI screening follows ACOG guidelines(PB 168, 140, TIQ809). See individual assays for performing site location. Performed By: #### 5 [id number], [id number] #### [facility]-[address], [address] [place] [address] Sales Inspector: Piter Cortes MD #### [id number], [id number] #### [facility] [address], [address] [place] [address] Sales Inspector: Piter Cortes MD Result Comment: EXPL ANATORY NOTE: The Pap is a screening test for cervical cancer. It is not a diagnostic test and is subject to false negative and false positive results. It is most reliable when a satisfactory sample, regularly obtained, is submitted with relevant clinical findings and history, and when the Pap result is evaluated along with historic and current clinical information. Result Comment: Iden tification of test requisition and/or specimen(s) was questionable. The below named individual provided this revised patient identification. PATIENT ID APPROVAL TIQ DOCU MENTATIONon 02-10-2022 [facility] Normal [facility] Comment on above: Performed By: #### 5 [id number], [id number] #### [facility]-[address], [address] [place] [address] Sales Inspector: Piter Cortes MD #### [id number], [id number] #### [facility] [address], [address] [place] [address] Sales Inspector: Piter Cortes MD TESTS AFFECTED [id number] Normal [facility] Comment on above: Performed By: #### 5 8315, [id number] #### [facility]-[address], [address] [place] [address] Sales Inspector: Piter Cortes MD #### [id number], [id number] #### [facility] [address], [address] [place] [address] Sales Inspector: Piter Cortes MD TEST IN QUESTION - CYTOLOGYo n 02-10-2022 CONTAINER TYPE: TP Normal [facility] Comment on above: Performed By: #### 5 [id number], [id number] #### [facility]-[address], [address] [place] [address] Sales Inspector: Piter Cortes MD #### [id number], [id number] #### [facility] [address], [address] [place] [address] Sales Inspector: Piter Cortes MD QUESTION/PROBLEM Normal [facility] Comment on above: Result Comment: MUL FORM RECEIVED Performed By: #### 5 [id number], [id number] #### [facility], [address] [place] [address] Sales Inspector: Piter Cortes MD #### [id number], [id number] #### [facility] [address], [address] [place] [address] Sales Inspector: Piter Cortes MD THINPREP TIS PAPon 2 CLINICAL INFORMATION: Normal [facility] Comment on above: Result Comment: None given Performed By: #### 5 [id number], [id number] #### [facility], [address] [place] [address] Sales Inspector: Piter Cortes MD #### [id number], [id number] #### [facility] [address], [address] [place] [address] Sales Inspector: Piter Cortes MD COMMENT: Normal [facility] Comment on above: Result Comment: This case could not be evaluated with computer assisted technology. The slide was manually screened according to routine procedures. Parabasal cells in smears that lack maturation due to atrophy or other hormonal reasons cannot be differentiated from transformation zone cells. Accordingly, presence or absence of endocervical or transformation zone components cannot be reported in this patient. Microscopic features suggestive of lubricant. Lubricant may interfere with slide preparation; their use is not recommended. Performed By: #### 5 [id number], [id number] #### [facility]-[address], [address] [place] [address] Sales Inspector: Piter Cortes MD #### [id number], [id number] #### [facility] [address], [address] [place] [address] Sales Inspector: Piter Cortes MD SUPERVISOR COOLER SERVICE: Normal See Note: [facility] Comment on above: Result Comment: Refe rence Range: ZL, CT(ASCP) CT screening location: [place] [address]. Performed By: #### 5 [id number], [id number] #### [facility]-[address], [address] [place] [address] Sales Inspector: Piter Cortes MD #### [id number], [id number] #### [facility] [address], [address] [place] [address] Sales Inspector: Piter Cortes MD INTERPRETATION/RESU LT: Normal [facility] Comment on above: Result Comment: Nega tive for intraepithelial lesion or malignancy. Atrophic pattern; predominantly parabasal cells Performed By: #### 5 [id number], [id number] #### [facility]-[address], [address] [place] [address] Sales Inspector: Piter Cortes MD #### [id number], [id number] #### [facility] [address], [address] [place] [address] Sales Inspector: Piter Cortes MD LMP: Normal [facility] Comment on above: Result Comment: None given Performed By: #### 5 [id number], [id number] #### [facility]-[address], [address] [place] [address] Sales Inspector: Piter Cortes MD #### [id number], [id number] #### [facility] [address], [address] [place] [address] Sales Inspector: Piter Cortes MD PREV. BX: Normal [facility] Comment on above: Result Comment: None given Performed By: #### 5 [id number], [id number] #### [facility]-[address], [address] [place] [address] Sales Inspector: Piter Cortes MD #### [id number], [id number] #### [facility] of [address], [address] [place] [address] Sales Inspector: Piter Cortes MD PREV. PAP: Normal [facility] Comment on above: Result Comment: None given Performed By: #### 5 [id number], [id number] #### [facility]-[address], [address] [place] [address] Sales Inspector: Piter Cortes MD #### [id number], [id number] #### [facility] [address], [address] [place] [address] Sales Inspector: Piter Cortes MD SOURCE: Normal [facility] Comment on above: Result Comment: None given Performed By: #### 5 8315, 83030 #### [facility]-[address], [address] [place] [address] Sales Inspector: Piter Cortes MD #### [id number], [id number] #### [facility] of [address], [address] [place] [address] Sales Inspector: Piter Cortes MD STATEMENT OF ADEQUACY: Normal [facility] Comment on above: Result Comment: SATI SFACTORY FOR EVALUATION Performed By: #### 5 [id number], [id number] #### [facility]-[address], [address] [place], [place] [address] Sales Inspector: Piter Cortes MD #### [id number], [id number] #### [facility] of [address], [address] [place] [address] Sales Inspector: Piter Cortes MD VC COMP CONSULTATIONon 01-06 VC COMP CONSULTATION Patient: SHAUNA CHRISTENSEN Exam Date: 01/06/2022 : 1955 Gender:F Ordering : DR MAYANK VELASQUEZ M.D. Admission #: [id number] Family : Order #: [id number] CLICK HERE TO VIEW EXAM RADIOLOGY REPORT PROCEDURE: VC VEIN CENTER CONSULTATION VEIN CENTER - OFFICE VISIT INITIAL COMPARISON: None. PROGRESS NOTES: [age] year old female who presents with a 6 year history of leg pain, swelling, muscle cramping, edema. The patient's right leg symptoms are worse than the left historically, but recently left has started swelling greater than right. There has been a progression of symptoms. This increases with prolonged leg dependency. The patient describes an improvement with rest and elevation. The patient denies any signs and symptoms to suggest arterial ischemia. The patient describes a family history of varicose veins and mother. The patient has drinking and smoking history of occasional alcohol consumption; no tobacco use. Patient has a past medical history significant for hypercholesterolemia, prediabetic, hypothyroidism. The patient denies a history of deep venous thrombus or pulmonary embolus. See separate history and physical for medication list. No prior treatment for varicose or spider veins. Current use of compression stockings. After review of nurse notes, history and physical exam I discussed at length the pathophysiology of venous hypertension and possible treatments, therapies and strategies available. We discussed at length the importance of elevating the lower extremities above the level of the heart, increased physical activity and compression stocking use. Ultrasound venous reflux study performed today was discussed at length with the patient. The report notes dilated, incompetent right great saphenous and small saphenous veins with multiple incompetent branch varicosities and several roller gold leaf veins. Left leg demonstrates dilated, incompetent great saphenous vein proximally with a few tiny dilated mid calf roller gold leaf veins and incompetent branch saphenous varicosities. PHYSICAL EXAM: The right leg demonstrates multiple varicosities, multiple spider veins, no ulceration, marked edema, no skin discoloration. The left leg demonstrates a few varicosities, multiple spider veins, no ulceration, marked edema, no skin discoloration. Both thighs, legs and feet were symmetrically warm to the touch. Good posterior tibial and dorsalis pedis pulses were present bilaterally. IMPRESSION: 1. Bilateral lower extremity venous insufficiency 2. Bilateral lower extremity varicose veins 3. Marked bilateral lower extremity subcutaneous edema 4. No flow significant arterial disease 5. CEAP: C3, EC, AP, [place] PLAN: 1. Continued use of compression stockings 2. Elevated legs and increased physical activity symptomatic relief 3. Endovenous laser ablation of right great saphenous vein, left great saphenous vein, right small saphenous vein, bilateral microfoam chemical ablation, bilateral sclerotherapy. Nurse notes, history and physical were reviewed and confirmed, see attached forms. The nurse was present throughout the physical exam and consultation Dictated by: Candice Best M.D. on 01/06/2022 at 11:20 Approved by: Candice Best M.D. on 01/06/2022 at 11:45 Normal [facility] VC VENOUS REFLUX AMANDA LMTon 0 01-06-2022 VC VENOUS REFLUX AMANDA LMT Patient: SHAUNA CHRISTENSEN Exam Date: 01/06/2022 : 1955 Gender:F Ordering : DR MAYANK VELASQUEZ M.D. Admission #: [id number] Family : Order #: [id number] CLICK HERE TO VIEW EXAM RADIOLOGY REPORT PROCEDURE: VEIN CENTER ULTRASOUND VENOUS REFLUX BILATERAL LIMTED COMPARISON: None. INDICATIONS: Pain co-occurrent and due to varicose veins of bilateral legs i83.813 TECHNIQUE: Duplex imaging of the lower extremity to assess the deep and superficial venous system for the presence of deep or superficial venous incompetence and to document the location and severity of disease. The study includes evaluation of the great saphenous vein (GSV), anterior accessory saphenous vein (AASV) and small saphenous vein (SSV). Patient scanned in reverse Trendelenburg and standing. FINDINGS: RIGHT LOWER EXTREMITY: Saphenofemoral Junction Reflux: Yes 7.9mm 1.5 sec GSV: Diam (mm) Reflux/ Time (sec) Proximal Thigh 6.9 Yes 0.9 Mid Thigh 5.4 No Distal Thigh 6.9 Yes 2.4 Prox Calf 4.2 Yes 0.5 Mid Calf 3.4 Yes 0.5 Saphenopopliteal Junction Reflux: 5.5mm Yes 0.9 SSV: Proximal Calf 5.5 Yes 1.7 Mid Calf 4.3 Yes 3.4 AASV: Proximal Thigh 5.6 No Mid Thigh 3.2 No Distal Thigh Thrombi: No acute or chronic thrombus visualized Compressibility: Normal Flow: Normal Preforator: Dist/med calf 3.2mm with 1.9s reflux. Mid/med calf 3.5mm with 0.8s reflux. Tech Note: Incompetent SFJ, GSV, and SSV. Patient was standing for measurements of SSV. Patent varicose vein prox post calf 3.9mm with 2.8s reflux. Patent varicose vein dist/post thigh 6.4mm with 3.6s reflux. Patent varicose vein med knee 3.4mm with 0s reflux. Patent varicose vein mid med knee arising off of GSV 8.6mm with 3.6s reflux. LEFT LOWER EXTREMITY: Saphenofemoral Junction Reflux: Yes 9.2 mm 2.0 sec GSV: Diam (mm) Reflux/Time (sec) Proximal Thigh 7.1 Yes 0.9 Mid Thigh 5.4 No Distal Thigh 6.2 No Prox Calf 5.0 No Mid Calf 3.4 No Saphenopopliteal Junction Relux: 4.4 mm No SSV: Proximal Calf 3.7 No Mid Calf 3.6 No AASV: Proximal Thigh 5.7 No Mid Thigh 2.8 No Distal Thigh Thrombi: No acute or chronic thrombus visualized Compressibility: Normal Flow: Normal Primary Substance Abuse Counselor: Dist/med calf 3.1mm with 0s reflux. Mid/med calf 4.2mm with 0s reflux. Tech Note: Incompetent SFJ and GSV. Patent varicose vein prox/med calf 5.5mm with 1.0s reflux. Patent varicose vein prox med thigh 3.2mm with 0s reflux. CONCLUSION: 1. 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 2. Incompetent roller gold leaf veins within the right calf. 3. Left lower extremity demonstrates dilated great saphenous and anterior accessory saphenous veins, but no significant reflux. 4. Consultation for endovenous ablation is recommended. Dictated by: Candice Best M.D. on 01/06/2022 at 11:14 Approved by: Candice Best M.D. on 01/06/2022 at 11:20 Normal [facility] MAGNESIUMon 11-26-2021 Magnesium [Mass/Vol] 2.2 mg/dL Normal 1.5-2.5 [facility] Comment on above: Order Comment: FASTI NG:NO FASTING: NO Performed By: #### 6 22 #### [facility] [place] [address] Sales Inspector: Piter Cortes MD XR CHEST 2 Von 11-25-2021 XR CHEST 2 V EXAM: XR CHEST 2 V EXAM: XR CHEST 2 V INDICATION: 66 years old Female Dyspnea COMPARISON: None. FINDINGS: The cardiac silhouette is normal. There is no pulmonary edema. The lungs are clear. There is no pneumonia. There is no pneumothorax. There is no abnormal foreign body. IMPRESSION: There is no acute abnormality. Electronically authenticated by: ALTON BARRERA Date: 2021-11-25 12:[address] [facility] METABOLIC PANE [place] 08-20-2021 Albumin [Mass/Vol] 4.1 g/dL Normal 3.6-5.1 [facility] Comment on above: Performed By: #### 5 [id number], 55855, 0980 #### [facility] [place] [address] Sales Inspector: Piter Cortes MD Albumin/Globulin [Mass ratio] 1.5 {ratio} Normal 1.0-2.5 [facility] Comment on above: Performed By: #### 5 8984, 15640, 7600 #### [facility] [place] [address] Sales Inspector: Piter Cortes MD ALP [Catalytic activity/Vol] 86 U/L Normal 37-153 [facility] Comment on above: Performed By: #### 5 8984, 38927, 7600 #### [facility] [place] [address] Sales Inspector: Piter Cortes MD ALT [Catalytic activity/Vol] 13 U/L Normal 6-29 [facility] Comment on above: Performed By: #### 5 8984, 10657, 7600 #### [facility] [place] [address] Sales Inspector: Piter Cortes MD AST [Catalytic activity/Vol] 17 U/L Normal 10-35 [facility] Comment on above: Performed By: #### 5 8984, 67639, 7600 #### [facility] of [address], [address] [place] [address] Sales Inspector: Piter Cortes MD Bilirubin [Mass/Vol] 0.5 mg/dL Normal 0.2-1.2 [facility] Comment on above: Performed By: #### 5 8984, 62343, 7600 #### [facility] of [address], [address] [place] [address] Sales Inspector: Piter Cortes MD BUN/CREATININE RATIO NOT APPLICABLE Normal 6-22 [facility] Comment on above: Performed By: #### 5 89, 56688, 7600 #### [facility] of [address], [address] [place] [address] Sales Inspector: Piter Cortes MD Calcium [Mass/Vol] 9.2 mg/dL Normal 8.6-10.4 [facility] Comment on above: Performed By: #### 5 89, , 0 #### [facility] of [address], [address] [place] [address] Sales Inspector: Piter Cortes MD Chloride [Moles/Vol] 106 mmol/L Normal 98-110 [facility] Comment on above: Performed By: #### 5 8984, 39479, 7600 #### [facility] of [place] [address] Sales Inspector: Piter Cortes MD CO2 [Moles/Vol] 26 mmol/L Normal 20-32 [facility] Comment on above: Performed By: #### 5 8984, 91586, 7600 #### [facility] of [address], [address] [place] [address] Sales Inspector: Piter Cortes MD Creatinine [Mass/Vol] 0.75 mg/dL Normal 0.50-0.99 [facility] Comment on above: Result Comment: For patients >49 years of age, the reference limit for Creatinine is approximately 13% higher for people identified as -Cymro. Performed By: #### 5 8984, 42207, 7600 #### [facility] of [address], [address] [place] [address] Sales Inspector: Piter Cortes MD eGFR NON-AFR. MONTSERRATIAN 82 mL/min/1.73m2 Normal > OR = 60 [facility] Comment on above: Performed By: #### 5 8984, 97268, 0 #### [facility] of [address], [address] [place] [address] Sales Inspector: Piter Cortes MD GFR/1.73 sq M.predicted among blacks MDRD (S/P/Bld) [Vol rate/Area] 96 mL/min/{1.73_m2} Normal > OR = 60 [facility] Comment on above: Performed By: #### 5 8984, , 0 #### [facility] of [address], [address] [place] [address] Sales Inspector: Piter Cortes MD Globulin (S) [Mass/Vol] 2.7 g/dL Normal 1.9-3.7 [facility] Comment on above: Performed By: #### 5 8984, , 0 #### [facility] [address], [address] [place] [address] Sales Inspector: Piter Cortes MD Glucose [Mass/Vol] 138 mg/dL Normal 65-139 [facility] Comment on above: Result Comment: Non-fasting reference interval For someone without known diabetes, a glucose value >125 mg/dL indicates that they may have diabetes and this should be confirmed with a follow-up test. Performed By: #### 5 8984, 57951, 0 #### [facility] [address], [address] [place] [address] Sales Inspector: Piter Cortes MD Potassium [Moles/Vol] 4.0 mmol/L Normal 3.5-5.3 [facility] Comment on above: Performed By: #### 5 8984, 36282, 0 #### [facility] [address], [address] [place] [address] Sales Inspector: Piter Cortes MD Protein [Mass/Vol] 6.8 g/dL Normal 6.1-8.1 [facility] Comment on above: Performed By: #### 5 8984, 18585, 0 #### [facility] of [place] [address] Sales Inspector: Piter Cortes MD Sodium [Moles/Vol] 140 mmol/L Normal 135-146 [facility] Comment on above: Performed By: #### 5 8984, 99122, 0 #### [facility] [address], [address] [place] [address] Sales Inspector: Piter Cortes MD Urea nitrogen [Mass/Vol] 19 mg/dL Normal 7-25 [facility] Comment on above: Performed By: #### 5 8984, 65345, 0 #### [facility] [place] [address] Sales Inspector: Piter Cortes MD LIPID PANEL, [facility] 08-02 Cholesterol [Mass/Vol] 205 mg/dL High <200 [facility] Comment on above: Order Comment: FASTI NG:NO FASTING: NO Performed By: #### 5 8984, 52530, 0 #### [facility] [place] [address] Sales Inspector: Piter Cortes MD Cholesterol in HDL [Mass/Vol] 52 mg/dL Normal > OR = 50 [facility] Comment on above: Order Comment: FASTI NG:NO FASTING: NO Performed By: #### 5 8984, 25151, 0 #### [facility] [place] [address] Sales Inspector: Piter Cortes MD Cholesterol in LDL [Mass/Vol] 117 mg/dL High [facility] Comment on above: Order Comment: FASTI NG:NO FASTING: NO Result Comment: Refe rence range: <100 Desirable range <100 mg/dL for primary prevention; <70 mg/dL for patients with CHD or diabetic patients with > or = 2 CHD risk factors. LDL-C is now calculated using the Too-Sanabria calculation, which is a validated novel method providing better accuracy than the Friedewald equation in the estimation of LDL-C. Too SS et al. KANE. 2013;310(19): 0152-0430 (http://education.Dinnr/faq/YYA749) Performed By: #### 5 8984, 29025, 7600 #### [facility] [address], [address] [place] [address] Sales Inspector: Piter Cortes MD Cholesterol.total/C holesterol in HDL [Mass ratio] 3.9 {ratio} Normal <5.0 [facility] Comment on above: Order Comment: FASTI NG:NO FASTING: NO Performed By: #### 5 8984, 70347, 0 #### [facility] [address], [address] [place] [address] Sales Inspector: Piter Cortes MD NON HDL CHOLESTEROL 153 mg/dL (calc) High <130 [facility] Comment on above: Order Comment: FASTI NG:NO FASTING: NO Result Comment: For patients with diabetes plus 1 major ASCVD risk factor, treating to a non-HDL-C goal of <100 mg/dL (LDL-C of <70 mg/dL) is considered a therapeutic option. Performed By: #### 5 8984, 95912, 0 #### [facility] [address], [address] [place] [address] Sales Inspector: Piter Cortes MD Triglyceride [Mass/Vol] 236 mg/dL High <150 [facility] Comment on above: Order Comment: FASTI NG:NO FASTING: NO Result Comment: If a non-fasting specimen was collected, consider repeat triglyceride testing on a fasting specimen if clinically indicated. Zaira et al. J. of Clin. Lipidol. 2015;9:129-169. Performed By: #### 5 8984, 36052, 7600 #### [facility] [address], [address] [place] [address] Sales Inspector: Piter Cortes MD TSH+FREE T4on 08-20-2021 Free T4 [Mass/Vol] 0.9 ng/dL Normal 0.8-1.8 [facility] Comment on above: Performed By: #### 5 8984, 43951, 7600 #### [facility] [address], [address] [place], [place] [id number] Sales Inspector: Piter Cortes MD TSH Qn 1.53 m[IU]/L Normal 0.40-4.50 [facility] Comment on above: Performed By: #### 5 8984, 95729, 7600 #### [facility] [address], [address] [place], [place] [id number] Sales Inspector: Piter Cortes MD Vital Signs Date Time Vital Sign Value Performing Clinician Facility 01-16-2024 09:090400 Body height 165.1 cm [facility] 01-16-2024 09:090400 Body mass index (BMI) [Ratio] 30 kg/m2 [facility] 01-16-2024 09:09-0400 Body temperature 97.8 [degF] [facility] 01-16-2024 09:09-0400 Body weight 81.87 kg [facility] 01-16-2024 09:09-0400 Diastolic blood pressure 70 mm[Hg] [facility] 01-16-2024 09:09-0400 Heart rate 75 /min [facility] 01-16-2024 09:09-0400 Respiratory rate 18 /min [facility] 01-16-2024 09:09-0400 SaO2% (BldA) [Mass fraction] 99 % [facility] 01-16-2024 09:09-0400 Systolic blood pressure 157 mm[Hg] [facility] 06-19-2023 09:00-0500 Body height 160 cm Janelle HERNANDEZ Work Phone: [facility] 06-19-2023 09:00-0500 Body mass index (BMI) [Ratio] 32.38 kg/m2 Janelle HERNANDEZ Work Phone: [facility] 06-19-2023 09:00-0500 Body temperature 97.39 [degF] Janelle Auguste APRN-COLLABORATIVE TEACHER Work Phone: [employer] 06-19-2023 09:00-0500 Body weight 82.92 kg Janelle BLACKCOLLABORATIVE TEACHER Work Phone: [employer] 06-19-2023 09:00-0500 Diastolic blood pressure 60 mm[Hg] Janelle Auguste APRN-COLLABORATIVE TEACHER Work Phone: [employer] 06-19-2023 09:00-0500 Heart rate 89 /min Janelle BLACKCOLLABORATIVE TEACHER Work Phone: [employer] 06-19-2023 09:00-0500 SaO2% (BldA) [Mass fraction] 100 % Janelle BLACKCOLLABORATIVE TEACHER Work Phone: [employer] 06-19-2023 09:00-0500 Systolic blood pressure 112 mm[Hg] Janelle BLACKCOLLABORATIVE TEACHER Work Phone: [employer] 04-25-2023 10:50-0500 Body height 165.1 cm Taryn Olya Other [employer] Other 04-25-2023 10:50-0500 Body mass index (BMI) [Ratio] 29.45 kg/m2 Taryn Olya Other [employer] Other 04-25-2023 10:50-0500 Body temperature 97.8 [degF] Taryn Olya Other [employer] Other 04-25-2023 10:50-0500 Body weight 80.29 kg Taryn Olya Other [employer] Other 04-25-2023 10:50-0500 Diastolic blood pressure 73 mm[Hg] Taryn Dobson Other [employer] Other 04-25-2023 10:50-0500 Respiratory rate 18 /min Taryn Olya Other [employer] Other 04-25-2023 10:50-0500 SaO2% (BldA) [Mass fraction] 99 % Taryn Olya Other [employer] Other 04-25-2023 10:50-0500 Systolic blood pressure 146 mm[Hg] Taryn Olya Other [employer] Other 10-04-2022 11:30-0400 Body height 165.1 cm Taryn Olya Other [employer] Other 10-04-2022 11:30-0400 Body mass index (BMI) [Ratio] 31.51 kg/m2 Taryn Olya Other [employer] Other 10-04-2022 11:30-0400 Body temperature 97.7 [degF] Taryn Olya Other [employer] Other 10-04-2022 11:30-0400 Body weight 85.91 kg Taryn Olya Other [employer] Other 10-04-2022 11:30-0400 Diastolic blood pressure 73 mm[Hg] Taryn Olya Other [employer] Other 10-04-2022 11:30-0400 Respiratory rate 18 /min Taryn Olya Other [employer] Other 10-04-2022 11:30-0400 SaO2% (BldA) [Mass fraction] 96 % Taryn Olya Other [employer] Other 10-04-2022 11:30-0400 Systolic blood pressure 123 mm[Hg] Taryn Dobson Other [facility] [employer] Other 08-31-2022 15:25-0400 Body height 159.6 cm Augustin Vital MD Work Phone: [facility] 08-31-2022 15:25-0400 Body temperature 97.11 [degF] Augustin Vital MD Work Phone: [facility] 08-31-2022 15:25-0400 Body weight 85.73 kg Augustin Vital MD Work Phone: [facility] 08-31-2022 15:25-0400 Diastolic blood pressure 73 mm[Hg] Augustin Vital MD Work Phone: [facility] 08-31-2022 15:25-0400 Heart rate 75 /min Augustin Vital MD Work Phone: [facility] 08-31-2022 15:25-0400 Respiratory rate 16 /min Augustin Vital MD Work Phone: [facility] 08-31-2022 15:25-0400 SaO2% (BldA) [Mass fraction] 99 % Augustin Vital MD Work Phone: [facility] 08-31-2022 15:25-0400 Systolic blood pressure 139 mm[Hg] Augustin Vital MD Work Phone: [facility] 06-22-2022 15:54-0500 Body height 159.6 cm Augustin Vital MD Work Phone: [facility] 06-22-2022 15:54-0500 Body temperature 97.7 [degF] Augustin Vital MD Work Phone: [facility] 06-22-2022 15:54-0500 Body weight 84.91 kg Augustin Vital MD Work Phone: [facility] 06-22-2022 15:54-0500 Diastolic blood pressure 82 mm[Hg] Augustin Vital MD Work Phone: [facility] 06-22-2022 15:54-0500 Heart rate 84 /min Augustin Vital MD Work Phone: [facility] 06-22-2022 15:54-0500 Respiratory rate 16 /min Augustin Vital MD Work Phone: [facility] 06-22-2022 15:54-0500 SaO2% (BldA) [Mass fraction] 98 % Augustin Vital MD Work Phone: [facility] 06-22-2022 15:54-0500 Systolic blood pressure 153 mm[Hg] Augustin Vital MD Work Phone: [facility] Encounters Encounter Date Encounter Type Care Provider Facility Start: 01-16-2024 End: 01-16-2024 ambulatory [facility] Work Phone: Start: 01-16-2024 End: 01-16-2024 Patient encounter procedure [facility] Work Phone: Start: 01-07-2024 End: 01-07-2024 ambulatory KRISHNA BERNAL Not Available Start: 11-26-2023 End: 11-26-2023 ambulatory [facility] Start: 10-10-2023 End: 10-11-2023 ambulatory [facility] Start: 10-10-2023 End: 10-10-2023 ambulatory [facility] Start: 10-08-2023 End: 10-08-2023 ambulatory KRISHNA BERNAL Not Available Start: 08-28-2023 Refill Janelle Auguste DELINQUENT TAX COLLECTOR-COLLABORATIVE TEACHER Work Phone: [facility] - [facility] Start: 07-17-2023 End: 07-18-2023 ambulatory WILLIAM KUNS [facility] Start: 07-06-2023 Bamboo flowsheet Taryn santana PT Work Phone: [facility] Start: 07-06-2023 Bamboo flowsheet Taryn Jansen s PT Work Phone: [facility] Start: 07-06-2023 End: 07-06-2023 ambulatory Taryn Bell PT Work Phone: [facility] Comment on above: Unilateral primary o steoarthritis, right knee (Primary Dx); Status post right knee replacement Start: 07-04-2023 End: 07-04-2023 Office outpatient visit 25 minutes Jr. Krishna Trujillo DO Work Phone: [facility] Comment on above: Acute pain of right knee (Primary Dx); History of total knee replacement, right Start: 07-04-2023 End: 07-04-2023 ambulatory KRISHNA BERNAL Not Available Start: 07-02-2023 Miki Rodriguez [facility] Start: 06-29-2023 End: 06-29-2023 ambulatory TARYN BELL Not Available Start: 06-22-2023 End: 06-22-2023 ambulatory TARYN BELL Not Available Start: 06-19-2023 End: 06-19-2023 Office outpatient visit 25 minutes [facility] Chris DELINQUENT TAX COLLECTOR-COLLABORATIVE TEACHER Work Phone: [facility] Internal Medicine - Family Medicine Comment on above: 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 CMS-HCC) (Primary Dx); Fatigue, unspecified type; Articulation disorder; Poor concentration Start: 06-19-2023 End: 06-19-2023 ambulatory [facility] Start: 06-15-2023 End: 06-15-2023 ambulatory TARYN BELL Not Available Start: 06-08-2023 End: 06-08-2023 ambulatory TARYN BELL Not Available Start: 06-01-2023 End: 06-01-2023 ambulatory TARYNJACKY BELL Not Available Start: 05-25-2023 End: 05-25-2023 ambulatory TARNYJACKY BELL Not Available Start: 05-23-2023 End: 05-23-2023 ambulatory KRISHNA BERNAL Not Available Start: 05-18-2023 End: 05-18-2023 ambulatory TARYN BELL Not Available Start: 05-04-2023 End: 05-04-2023 ambulatory TARYN BELL Not Available Start: 04-30-2023 End: 04-30-2023 ambulatory TMO HUERTA Not Available Start: 04-25-2023 Office outpatient vi sit 15 minutes Taryn Olya [facility] Start: 04-25-2023 End: 04-25-2023 Departed Referred DOCK GUARD-C Taryn Dobson Work Phone: [facility] [place] Work Phone: Start: 04-25-2023 End: 04-25-2023 ambulatory Taryn Dobson [facility] Work Phone: Start: 04-20-2023 End: 04-23-2023 ambulatory TARYN BELL Not Available Start: 10-11-2022 End: 10-12-[address] AUGUSTIN VITAL Facility: Start: 10-09-2022 Telephone encounter Tabby Ramírez RN Hematology/Oncology Comment on above: Orders Start: 10-04-2022 Office outpatient vi sit 25 minutes Taryn Olya [facility] Start: 10-04-2022 End: 10-04-2022 ambulatory Taryn Dobson [facility] [employer] Other Start: 08-31-2022 End: 08-31-2022 ambulatory AUGUSTIN VITAL Facility:[facility] Start: 08-31-2022 End: 08-31-2022 ambulatory Augustin Vital MD Work Phone: Hematology/Oncology Comment on above: Iron deficiency anem ia, unspecified iron deficiency anemia type (Primary Dx) Start: 08-31-2022 End: 08-31-2022 Patient encounter procedure Augustin Vital MD Work Phone: [facility] Start: 06-26-2022 Telephone encounter Dorothy Khan RN Hematology/Oncology Comment on above: Results Start: 06-22-2022 End: 06-22-2022 ambulatory Augustin Vital MD Work Phone: Hematology/Oncology Comment on above: Iron deficiency anem ia, unspecified iron deficiency anemia type (Primary Dx) Start: 06-22-2022 End: 06-22-2022 Patient encounter procedure Augustin Vital MD Work Phone: [facility] Start: 06-21-2022 Chart abstracting Augustin olivares MD Work Phone: Hematology/Oncology Start: 06-20-2022 End: 08-09-2022 ambulatory Mayank Velasquez MD Facility:[facility] Start: 06-02-2022 End: 06-03-[address] PEDRO HERRERA Facility:[facility] Start: 06-01-2022 End: 06-02-[address] MAYANK VELASQUEZ Facility:[facility] Start: 05-25-2022 End: 05-26-[address] MAYANK VELASQUEZ Facility:[facility] Start: 05-19-2022 End: 05-20-[address] MAYANK VELASQUEZ Facility:[facility] Start: 05-05-2022 End: 05-06-[address] MAYANK VELASQUEZ Facility:[facility] Start: 05-01-2022 End: 05-02-[address] MAYANK VELASQUEZ Facility:[facility] Start: 04-24-2022 End: 04-25-[address] MAYANK VELASQUEZ Facility:[facility] Start: 04-17-2022 End: 04-18-[address] MAYANK VELASQUEZ Facility:[facility] Start: 03-24-2022 End: 03-25-[address] MAYANK VELASQUEZ Facility:[facility] Start: 03-21-2022 End: 03-22-[address] MAYANK VELASQUEZ Facility:[facility] Start: 03-11-2022 End: 03-12-[address] PEDRO HERRERA Facility:[facility] Start: 03-10-2022 End: 03-11-[address] PEDRO HERRERA Facility:[facility] Start: 03-06-2022 End: 03-07-2022 ambulatory WERNER BEJARANO Facility:[facility] Start: 03-03-2022 End: 03-04-[address] MAYANK VELASQUEZ Facility:[facility] Start: 02-27-2022 End: 02-28-[address] MAYANK VELASQUEZ Facility:[facility] Start: 01-06-2022 End: 08-06-[address] MAYANK VELASQUEZ Facility:[facility] Start: 12-27-2021 End: 12-28-[address] MAYANK VELASQUEZ Facility:[facility]1 Start: 11-25-2021 End: 11-26-2021 ambulatory WERNER BEJARANO Facility:[facility]1 Procedures Date Procedure Procedure Detail Performing Clinician Start: 06-19-2023 Adult depression scr eening assessment Janelle Auguste DELINQUENT TAX COLLECTOR-COLLABORATIVE TEACHER Work Phone: Start: 04-25-2023 Piperacillin/tazobactam Taryn Dobson Other Start: 04-03-2023 Mammography Janelle Auguste DELINQUENT TAX COLLECTOR-COLLABORATIVE TEACHER Work Phone: Start: 10-13-2020 Colonoscopy Janelle Auguste DELINQUENT TAX COLLECTOR-COLLABORATIVE TEACHER Work Phone: Start: 01-20-2020 Mammography Taryn Jackeline ns PT Work Phone: Start: 10-06-2013 Colonoscopy Taryn Jackeline ns PT Work Phone: Plan of Treatment Date Care Activity Detail Author Start: 10-13-2030 Screening for malign ant neoplasm of colon Colonoscopy [facility] Start: 08-31-2025 DIABETES SCREEN DIABETES SCREEN [facility] Start: 06-19-2024 Adult BMI Screening Adult BMI Screen ing [facility] Start: 06-19-2024 Depression Screening Depression Scre ening [facility] Start: 06-19-2024 Fall Risk Screening Fall Risk Screen ing [facility] Start: 06-19-2024 Tobacco Screening Tobacco Screening [facility] Start: 04-13-2024 Adult BMI Follow Up Plan Adult BMI Follow Up Plan [facility] Start: 04-03-2024 Screening for malign ant neoplasm of breast Mammogram [facility] Start: 01-02-2024 End: 01-02-2024 Patient encounter procedure 01/02/2024 8:00 AM EDT Office Visit [facility] [address] [place] [address] Jr. Krishna Trujillo, DO [address] [facility] [address] [place] [address] [facility] Start: 10-07-2023 Screening for malign ant neoplasm of colon [facility] Start: 09-29-2023 Medicare Annual Wellness Visit Medicare Annual Wellness Visit [facility] Start: 09-23-2023 DTaP,Tdap and Td Vaccines (2 - Td or Tdap) DTaP,Tdap and Td Vaccines (2 - Td or Tdap) [facility] Start: 07-19-2023 COLORECTAL CANCER SCREENING COLORECTAL CANCER SCREENING [facility] Start: 07-19-2023 FECAL OCCULT BLOOD FECAL OCCULT BLOO D [facility] Start: 07-19-2023 Screening for malign ant neoplasm of colon [facility] Start: 07-13-2023 End: 07-13-2023 ambulatory 07/13/2023 9:00 AM EST Treatment [facility] [address] [facility] [address] [place] [id number] Taryn Bell, PT [address] [place] [address] [facility] Start: 07-06-2023 End: 07-06-2023 ambulatory 07/06/2023 9:00 AM EST Treatment [facility] [address] [facility] [address] [place] [address] Taryn Bell, PT [address] [place] [address] Arrived [facility] Comment on above: Arrived Start: 04-25-2023 Bacteria identified in Urine by Culture [facility] Start: 2023 COVID-19 Vaccine ( season) COVID-19 Vaccine () [facility] Start: 10-09-2022 End: 12-09-2022 CBC W Auto Differential panel - Blood CBC + DIFF Lab Routine Iron deficiency anemia, unspecified iron deficiency anemia type Expected: 10/09/2022, Expires: 12/09/2022 [facility] Work Phone: Comment on above: Expected: 10/09/2022 , Expires: 12/09/2022 Start: 10-09-2022 End: 12-09-2022 Ferritin [Mass/volume] in Serum or Plasma FERRITIN BLD Lab Routine Iron deficiency anemia, unspecified iron deficiency anemia type Expected: 10/09/2022, Expires: 12/09/2022 [facility] Work Phone: Comment on above: Expected: 10/09/2022 , Expires: 12/09/2022 Start: 10-09-2022 End: 12-09-2022 Iron and Iron binding capacity panel - Serum or Plasma IRON + TIBC Lab Routine Iron deficiency anemia, unspecified iron deficiency anemia type Expected: 10/09/2022, Expires: 12/09/2022 [facility] Work Phone: Comment on above: Expected: 10/09/2022 , Expires: 12/09/2022 Start: 08-31-2022 End: 10-31-2022 Ferritin [Mass/volume] in Serum or Plasma [facility] Work Phone: Comment on above: Expected: 08/31/2022 , Expires: 10/31/2022 Start: 08-31-2022 End: 10-31-2022 Iron and Iron binding capacity panel - Serum or Plasma [facility] Work Phone: Comment on above: Expected: 08/31/2022 , Expires: 10/31/2022 Start: 06-22-2022 End: 08-22-2022 Cobalamin (Vitamin B12) [Mass/volume] in Serum or Plasma [facility] Work Phone: Comment on above: Expected: 06/22/2022 , Expires: 08/22/2022 Start: 06-22-2022 End: 08-22-2022 Ferritin [Mass/volume] in Serum or Plasma [facility] Work Phone: Comment on above: Expected: 06/22/2022 , Expires: 08/22/2022 Start: 06-22-2022 End: 08-22-2022 Iron and Iron binding capacity panel - Serum or Plasma [facility] Work Phone: Comment on above: Expected: 06/22/2022 , Expires: 08/22/2022 Start: 06-04-2022 ADVANCE DIRECTIVE DISCUSSION ADVANCE DIRECTIVE DISCUSSION [facility] Start: 06-04-2022 DEPRESSION ASSESSMENT DEPRESSION ASS ESSMENT [facility] Start: 03-09-2022 COVID-19 VACCINE (5 - Booster for Moderna series) COVID-19 VACCINE (5 - Booster for Moderna series) [facility] Start: 01-19-2021 Screening for malign ant neoplasm of breast Mammogram [facility] Start: 08-25-2020 COVID-19 VACCINE (2 - Moderna series) COVID-19 VACCINE (2 - Moderna series) [facility] Start: 2019 BONE DENSITY BONE DENSITY [facility] Start: 2019 PNEUMOCOCCAL: 65+ (1 - PCV) PNEUMOCOCCAL: 65+ (1 - PCV) [facility] Start: 02-03-2004 SHINGRIX VACCINE (1 of 2) SHINGRIX VACCINE (1 of 2) [facility] Start: 1999 COLOGUARD (FIT-DNA) COLOGUARD (FIT-D NA) [facility] Start: 1999 Colonoscopy COLONOSCOPY [facility] Start: 1999 COLORECTAL CANCER SCREENING COLORECTAL CANCER SCREENING [facility] Start: [address] COLONOGRAPHY [facility] Start: 1999 DIABETES SCREEN DIABETES SCREEN [facility] Start: 1999 FECAL OCCULT BLOOD FECAL OCCULT BLOO D [facility] Start: 1999 LIPID SCREEN LIPID SCREEN [facility] Start: 1999 SIGMOIDOSCOPY SIGMOIDOSCOPY [facility] Start: 1994 Mammography MAMMOGRAM [facility] Start: 1973 Urine microalbumin profile DTAP,TDAP,TD (1 - Tdap) [facility] Start: 02-03-1972 HEPATITIS C SCREENING HEPATITIS C SC OLEGARIONING [facility] Start: 1954 Screening for malign ant neoplasm of colon [facility] End: 06-19-2024 Basic metabolic 2000 panel - Serum or Plasma Basic Metabolic Panel Lab Routine 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CMS-HCC) 1 Occurrences starting 06/19/2023 until 06/19/[address] [facility] Comment on above: 1 Occurrences starti ng 06/19/2023 until 06/19/2024 Hemoglobin.gastroint est inal.lower [Presence] in Stool by Immunoassay FECAL OCCULT BLOOD TEST Lab Routine Iron deficiency anemia, unspecified iron deficiency anemia type Ordered: 06/22/2022 [facility] Work Phone: Comment on above: Ordered: 06/22/2022 End: 06-19-2024 Osmolality of Serum or Plasma Osmolality Lab Routine 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[facility]) 1 Occurrences starting 06/19/2023 until 06/19/2024 [facility] Comment on above: 1 Occurrences starti ng 06/19/2023 until 06/19/2024 End: 06-19-2024 Osmolality, urine Osmolality, urine Lab Routine 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[facility]) 1 Occurrences starting 06/19/2023 until 06/19/2024 [facility] Work Phone: Comment on above: 1 Occurrences starti ng 06/19/2023 until 06/19/2024 End: 06-19-2024 Sodium, urine, 24 hour Sodium, urine, 24 hour Lab Routine 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[facility]) 1 Occurrences starting 06/19/2023 until 06/19/2024 [facility] Comment on above: 1 Occurrences starti ng 06/19/2023 until 06/19/2024 End: 06-19-2024 Urinalysis Urinalysis (clean catch) Lab Routine 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[facility]) 1 Occurrences starting 06/19/2023 until 06/19/2024 [facility] Comment on above: 1 Occurrences starti ng 06/19/2023 until 06/19/2024 [facility] Immunizations Immunization Date Immunization Notes Care Provider Fa [facility] 04-13-2023 Influenza Vaccine, Quadrivalent, Adjuvanted Janelle Kalyani DELINQUENT TAX COLLECTOR-COLLABORATIVE TEACHER Work Phone: [facility] 04-03-2022 Influenza Vaccine, Quadrivalent, Adjuvanted Janelle Kalyani DELINQUENT TAX COLLECTOR-COLLABORATIVE TEACHER Work Phone: [facility] 04-03-2022 influenza virus vacc ine, unspecified formulation Janelle Auguste DELINQUENT TAX COLLECTOR-COLLABORATIVE TEACHER Work Phone: [facility] 02-21-2021 influenza, injectabl e, quadrivalent, preservative free Janelle Auguste DELINQUENT TAX COLLECTOR-COLLABORATIVE TEACHER Work Phone: [facility] 02-16-2021 Influenza, High-dose , Quadrivalent Janelle Auguste DELINQUENT TAX COLLECTOR-COLLABORATIVE TEACHER Work Phone: [facility] 07-29-2020 COVID-19, mRNA, LNP- S, PF, 100mcg/0.5mL Dose Janelle Auguste DELINQUENT TAX COLLECTOR-COLLABORATIVE TEACHER Work Phone: [facility] 07-28-2020 COVID-19, mRNA, LNP- S, PF, 100mcg/0.5mL Dose Janelle Auguste DELINQUENT TAX COLLECTOR-COLLABORATIVE TEACHER Work Phone: [facility] 02-23-2020 influenza, injectabl e, quadrivalent, preservative free Janelle Auguste DELINQUENT TAX COLLECTOR-COLLABORATIVE TEACHER Work Phone: [facility] 02-23-2020 pneumococcal conjuga te vaccine, 13 valent Janelle Auguste DELINQUENT TAX COLLECTOR-COLLABORATIVE TEACHER Work Phone: [facility] 02-23-2020 pneumococcal polysaccharide vaccine, 23 valent Janelle Auguste DELINQUENT TAX COLLECTOR-COLLABORATIVE TEACHER Work Phone: [facility] 04-04-2019 pneumococcal polysaccharide vaccine, 23 valent Janelle Auguste DELINQUENT TAX COLLECTOR-COLLABORATIVE TEACHER Work Phone: [facility] 04-04-2019 Seasonal trivalent influenza vaccine, adjuvanted, preservative free Janelle Auguste DELINQUENT TAX COLLECTOR-COLLABORATIVE TEACHER Work Phone: [facility] 04-03-2019 Seasonal trivalent influenza vaccine, adjuvanted, preservative free Janelle Auguste DELINQUENT TAX COLLECTOR-COLLABORATIVE TEACHER Work Phone: [facility] 04-01-2018 influenza, injectabl e, quadrivalent, preservative free Janelle Auguste DELINQUENT TAX COLLECTOR-COLLABORATIVE TEACHER Work Phone: [facility] 03-11-2018 influenza, injectabl e, quadrivalent, preservative free Janelle Auguste DELINQUENT TAX COLLECTOR-COLLABORATIVE TEACHER Work Phone: [facility] 03-03-2018 zoster vaccine recombinant Janelle Auguste DELINQUENT TAX COLLECTOR-COLLABORATIVE TEACHER Work Phone: [facility] 12-21-2017 zoster vaccine recombinant Janelle Auguste DELINQUENT TAX COLLECTOR-COLLABORATIVE TEACHER Work Phone: [facility] 06-22-2017 influenza, seasonal, injectable, preservative free Janelle Auguste DELINQUENT TAX COLLECTOR-COLLABORATIVE TEACHER Work Phone: [facility] 07-25-2015 zoster vaccine, live Janelle sellers DELINQUENT TAX COLLECTOR-COLLABORATIVE TEACHER Work Phone: [facility] 09-22-2013 tetanus and diphther ia toxoids, adsorbed, preservative free, for adult use (5 Lf of tetanus toxoid and 2 Lf of diphtheria toxoid) Janelle Auguste DELINQUENT TAX COLLECTOR-COLLABORATIVE TEACHER Work Phone: [facility] 04-18-2013 influenza, seasonal, injectable Janelle Auguste DELINQUENT TAX COLLECTOR-COLLABORATIVE TEACHER Work Phone: [facility] 08-13-2008 haemophilus influenz ae type b conjugate and Hepatitis B vaccine Janelle Auguste DELINQUENT TAX COLLECTOR-COLLABORATIVE TEACHER Work Phone: [facility] 11-28-2007 haemophilus influenz ae type b conjugate and Hepatitis B vaccine Janelle Auguste DELINQUENT TAX COLLECTOR-COLLABORATIVE TEACHER Work Phone: [facility] Payers Date Payer Category Payer Private Health Insurance [id number] 2022 Self-pay [id number] 2022 Medicare [id number] 1959 Medicare [id number] 1959 Private Health Insurance [id number] 1954 Unknown [id number] 2.16.840.1.702941.3.579.2.718 1954 Unknown [id number] 2.16.840.1.773008.3.579.2.593 1954 Unknown [id number] 2.16.840.1.599565.3.579.2.593 1954 Unknown [id number] 2.16.840.1.196684.3.579.2.593 1954 Unknown [id number] 2.16.840.1.611412.3.579.2.593 1954 Unknown [id number] 2.16.840.1.720194.3.579.2.593 1954 Unknown [id number] 2.16.840.1.254700.3.579.2.593 1954 Unknown [id number] 2.16.840.1.872406.3.579.2.593 1954 Unknown [id number] 2.16.840.1.589219.3.579.2.593 1954 Unknown [id number] 2.16.840.1.978874.3.579.2.593 1954 Unknown [id number] 2.16.840.1.231953.3.579.2.593 1954 Unknown [id number] 2.16.840.1.870240.3.579.2.593 1954 Unknown [id number] 2.16.840.1.818327.3.579.2.593 1954 Unknown [id number] 2.16.840.1.437200.3.579.2.593 1954 Unknown [id number] 2.16.840.1.438701.3.579.2.593 1954 Unknown [id number] 2.16.840.1.169903.3.579.2.593 1954 Unknown [id number] 2.16.840.1.741300.3.579.2.593 1954 Unknown [id number] 2.16.840.1.657406.3.579.2.593 1954 Unknown [id number] 2.16.840.1.405314.3.579.2.593 1954 Unknown [id number] 2.16.840.1.232601.3.579.2.593 1954 Unknown [id number] 2.16.840.1.733203.3.579.2.1286 1954 Unknown [id number] 2.16.840.1.833228.3.579.2.1286 1954 Unknown [id number] 2.16.840.1.013671.3.579.2.1286 1954 Unknown [id number] 2.16.840.1.758459.3.579.2.1286 1954 Unknown [id number] 2.16.840.1.495560.3.579.2.1286 1954 Unknown [id number] 2.16.840.1.382267.3.579.2.1259 1954 Unknown [id number] 2.16.840.1.854293.3.579.2.1259 1954 Unknown [id number] 2.16.840.1.115047.3.579.2.1259 1954 Unknown [id number] 2.16.840.1.594329.3.579.2.1258 1954 Unknown [id number] 2.16.840.1.867557.3.579.2.1259 1954 Unknown [id number] 2.16.840.1.807335.3.579.2.1259 1954 Unknown [id number] 2.16.840.1.362300.3.579.2.1259 1954 Unknown [id number] 2.16.840.1.671753.3.579.2.1258 1954 Unknown [id number] 2.16.840.1.650094.3.579.2.9 1954 Unknown [id number] 2.16.840.1.808292.3.579.2.1258 1954 Unknown [id number] 2.16.840.1.759325.3.579.2.1258 1954 Unknown [id number] 2.16.840.1.334758.3.579.2.1258 1954 Unknown [id number] 2.16.840.1.681590.3.579.2.1258 1954 Unknown [id number] 2.16.840.1.433853.3.579.2.1258 1954 Unknown [id number] 2.16.840.1.335849.3.579.2.1258 1954 Unknown [id number] 2.16.840.1.893787.3.579.2.1259 Unknown [place] BC/BS [id number] Unknown [id number] 2.16.840.1.514682.3.579.2.531 Unknown [id number] 2.16.840.1.419189.3.579.2.531 Social History Date Type Detail Facility Start: 06-21-2022 End: 01-16-2024 Tobacco smoking status NHIS Never smoked tobacco [facility] Start: 03-20-2022 End: 06-21-2022 Tobacco use and exposure Smokeless tobacco non-user [facility] Start: 06-21-2022 End: 06-19-2023 Alcohol intake Current drinker of alcohol (finding) [facility] Start: 06-21-2022 Alcohol Comment occasional [facility] Start: 1955 Sex Assigned At Not on file [facility] Start: 09-28-2022 End: 06-19-2023 Sex Assigned At [facility] Start: 1955 Sex Assigned At Female F [facility] Start: 09-28-2022 End: 06-19-2023 History of Social function [facility] Do you belong to any clubs or organizations such as buddhism groups, unions, fraternal or athletic groups, or school groups? No [facility] Are you now , , , , never or living with a partner? [facility] How often to you hav e a drink containing alcohol? 2-3 time sa week [facility] How many standard drinks containing alcohol do you have on a typical day? 1 or [address] [facility] How often do you hav e 6 or more drinks on 1 occasion? Never [facility] How hard is it for y ou to pay for the very basics like food, housing, medical care, and heating Not hard at all [facility] Do you feel stress - tense, restless, nervous, or anxious, or unable to sleep at night because your mind is troubled all the time - these days [OSQ] Not at all [facility] Start: 08-31-2020 Alcohol Comment Occasional [facility] Start: 12-12-2022 Education 17 [facility] Start: 12-12-2022 Alcohol Comment Alcohol: 1 or 2 drinks on typical day/monthly or less. Caffeine 1 can of soda [facility] Start: 08-16-2022 Gender identity Identifies as female gender (finding) [facility] NEGATED: Highlighted rowStart: NINF History of tobacco use Passive smoker [facility] Clinical Notes 06-21-2022 to 07-06-2023 Taryn Bell, PT - 07/06/2023 9:00 AM ESTJr. Krishna Trujillo, DO - 07/04/2023 8:00 AM Dennis Auguste, DELINQUENT TAX COLLECTOR-COLLABORATIVE TEACHER - 06/19/2023 9:00 AM EST Note Date & Type Note Facility 07-06-2023 History of Present illness Narrative Physical Therapy Physical Therapy Treatment Visit Patient Name: Dior Christensen Today's Date: 07/06/2023 Subjective Current Problem: s/p Right TKA with pain and difficulty walking. Pt is being seen today for follow up visit for s/p right TKA. Date of Surgery: 02-09-23, 5 months post-op Current deficits: Intermittent anterior knee pain, weakness limit walking and activity Visit Number: 5, 28 visits in 2022. (7 in home visits with Raysa) Time In: 9:00 AM Time out: 9:45: AM Supervised time: 37 Mins Total time: 45 Mins Precautions: None, progress as tolerated. Subjective: Pt saw Dr. Trujillo, no change orders. Pt states that quads are getting stronger and pain level is lower with walking. Knee extension seems consistent now. Pain today: 1-2 Objective Pt is amb indep without assistive device equal step time on flexed right knee AROM: Lacks 15* knee extension at outset, 10* after manual therapy. PROM: 8-119* after stretch Strength: minimal lag with SLR. 4/5 right quads mid range, LE. Physical Therapy Intervention Manual Therapy: Delivered manual ther STM and manual over pressure for knee extension x 20 min Therapeutic Exercise : Guided pt through ther and flex ex per grid to improve open and closed chain to improve quad activation and LE strength needed for return to PLOF x25 min, Bike ( 8 mins unsupervised) Gait Training: Therapeutic Activity: Functional activity to return pt to prior condition Modalities: CP to R knee post session for inflammation and muscle soreness (prn) Goals Group Home Goals Goal 1 : Patient will demonstrate 10-110 degrees of active right knee flexion in order to improve indpendence with ambulation up and down steps. MET after stretch. Goal 2 : Patient will demonstrate 4+/5 or better right knee strength in order to safely return to activities of interest. QUADS 4/5 AT END RANGE Goal 3 : Patient will ambulate 500' x 2 distances on even and uneven surfaces, independently < 1/10 report of pain in right knee. GOAL MET Goal 4 : Pt will ascend/descend 2-3 steps with railing with reciprical gait pattern independently. GOAL MET Goal 5 : Patient will demonstrate good static and dynamic standing balance for >15 mintues without LOB or increase in knee pain. GOAL MET Goal 6 : Pt will improve Tinetti Balance test to 28/ to indicate no fall risk. GOAL MET LEFS score on 06/22/23: 56/80 points, 30% impairment. (40/80 on 04-03-23 and 05/04/23) Assessment: Significant improvement in pain level, ROM and strength over past 4 weeks Plan: No further PT treatment scheduled. I hereby deem this POC medically necessary. Please sign below and fax back to the number below. Physician Signature: Date: documented in this encounter [facility] 07-04-2023 History of Present illness Narrative Images from the original note were not included. HISTORY OF PRESENT ILLNESS: EST PT Shauna Christensen is an 68 y.o. @ female. EST PT S/P (R) TKA 02/09/23 (4.5MO)- CONTINUES PT @ [facility] [place] [facility]- PT STATES SYMPTOMS HAVE IMPROVED- XRAY RT KNEE CHANGE 03/20/23 PT [facility] [place] NO MDP/PREDNISONE NO RECENT LABS NOTES SOME DISCOMFORT MEDIAL KNEE- MINIMAL SWELLING- +IBUPROFEN PRN- INCREASE SYMPTOMS WITH INCREASE ACTIVITY- NOTES INCREASE ROM- PT ICES/ELEVATES ALLERGIES: No Known Allergies HOME MEDICATIONS: Current Outpatient Medications Medication Instructions aspirin 81 mg, Oral, Daily atorvastatin (Lipitor) 10 MG tablet 1 tablet, Oral, Every morning biotin 53523 MCG tablet 1 capsule, Every 24 hours Calcium Carbonate (CALCIUM 600 PO) Oral cholecalciferol (VITAMIN D-3) 14,000 Units, Oral, Daily ferrous sulfate 325 mg, Oral, Daily with breakfast levothyroxine (SYNTHROID, LEVOXYL) 50 mcg, Oral, Daily RT metFORMIN (Glucophage) 500 MG tablet lcgsxqjkrwtm-fmsj-hemkkqav-folic acid (Centrum Silver, geriatric,) tablet as directed Orally oxybutynin XL (Ditropan-XL) 15 MG 24 hr tablet Every 24 hours PHYSICAL EXAM: Knee Musculoskeletal Exam Gait Gait is normal. Inspection Leg length disparity: no discrepancy Right Erythema: none Effusion: none Edema: none Ecchymosis: none Deformity: none Alignment: normal Previous incision: anterolateral Incision: well-healed Palpation Right Right knee palpation is unremarkable. Increased warmth: none Masses: none Tenderness: none Range of Motion Right Right knee range of motion is normal. Active extension: 5 Active flexion: 125 Strength Right Right knee strength is normal. Extension: 5/5. Flexion: 5/5. Instability Right Instability signs: none - stable Varus stress grade: normal Valgus stress grade: normal Neurovascular Right Right knee neurovascular exam is normal. Pulses - PT: normal Posterior tibial: 2+ Capillary refill: warm and well-perfused Special Signs Right Right knee special signs are normal. Patellar apprehension: none Vitals: There is no height or weight on file to calculate BMI. Tobacco Use: Low Risk (07/04/2023) Patient History Smoking Tobacco Use: Never Smokeless Tobacco Use: Never Passive Exposure: Not on file Alcohol Use: Not on file IMAGING: Procedures Orders Placed This Encounter Procedures Ambulatory referral to Physical Therapy Jean Marie [place] Continue to increase strength and ROM Standing Status: Future Standing Expiration Date: 01/02/2024 Referral Priority: Routine Referral Type: Consultation Referral Reason: Consult and Treat Referred to Provider: Oneal Weston, PT Requested Specialty: Physical Therapy Number of Visits Requested: 1 ASSESSMENT: ICD-10-CM 1. Acute pain of right knee M25.561 Ambulatory referral to Physical Therapy 2. History of total knee replacement, right Z96.651 PLAN: We have answered all the patients questions and explained the patients condition, decision making and plan including the risks and benefits associated with said plan in layman''s terms in a language the patient could understand easily. If patient''s symptoms significantly worsen and they cannot get a hold of us or their family physician, we have recommended that the patient proceed to the nearest emergency department (room). Dr. Trujillo obtained history and examined the patient, I am acting as scribe for Dr. Trujillo/lonnie, PLAN: We have reviewed prior (R) knee xrays. Patient is pleased with her right knee progress as she admits her right knee is better now than it was prior to sx. Patient states that she did a 2 mile hike at [facility] ~2 weeks ago. She has good strength and ROM, she feels she cotninues to benefit from formal physical therapy - we are recommending additional visits. We have discussed her HEP and restrictions and will see her back 6 months, when she returns from [place] to reassess her right knee ROM. May Sabillon MA documented in this encounter [facility] 06-19-2023 History of Present illness Narrative Subjective Patient ID: Shauna Christensen is a 68 y.o. female. She feels like since she had her surgery on 02/09/23 for a knee replacement that the anesthesia really messed with her Her thought process has really changed She is fragmenting sentences, interrupting conversations, substituting words in the wrong places Having difficulty articulating No trouble chewing or swallowing She feels her brain has really slowed and her energy level has really slowed She is having some trouble getting the knee to go completely straight Appetite has been poor, she is thirsty all the time and urinating excessively She was peeing all the time initially in much larger quantities then she was taking in, this has improved somewhat but she still needs to wear depends as she just has the sudden urge to pee and she has cut down on fluids to accommodate which just makes her feel more thirsty Poor concentration, she is having difficulty making simple computations she would normally make very easily, sleep patterns are ok The following portions of the patient's history were reviewed and updated as appropriate: allergies, current medications, past family history, past medical history, past social history, past surgical history, problem list, and medication reconciliation was completed including current medication and post discharge medication. Review of Systems Constitutional: Positive for activity change, appetite change and fatigue. HENT: Negative for trouble swallowing. Change in articulation Eyes: Negative. Respiratory: Negative. Cardiovascular: Negative. Gastrointestinal: Negative. Genitourinary: Positive for frequency (increased, excessive urination). Musculoskeletal: Positive for arthralgias. Skin: Negative. Neurological: Positive for weakness and light-headedness. Psychiatric/Behavioral: Positive for decreased concentration. Objective Physical Exam Vitals and nursing note reviewed. Constitutional: Appearance: She is not ill-appearing. HENT: Head: Normocephalic. Right Ear: Tympanic membrane, ear canal and external ear normal. Left Ear: Tympanic membrane, ear canal and external ear normal. Nose: Nose normal. Mouth/Throat: Mouth: Mucous membranes are moist. Eyes: Extraocular Movements: Extraocular movements intact. Conjunctiva/sclera: Conjunctivae normal. Pupils: Pupils are equal, round, and reactive to light. Neck: Vascular: No carotid bruit. Cardiovascular: Rate and Rhythm: Normal rate and regular rhythm. Heart sounds: Normal heart sounds. No murmur heard. Pulmonary: Effort: Pulmonary effort is normal. Breath sounds: Normal breath sounds. Abdominal: General: Abdomen is flat. Bowel sounds are normal. Palpations: Abdomen is soft. Musculoskeletal: Cervical back: Neck supple. Right lower leg: No edema. Left lower leg: No edema. Lymphadenopathy: Cervical: No cervical adenopathy. Skin: General: Skin is warm and dry. Neurological: Mental Status: She is alert and oriented to person, place, and time. Cranial Nerves: No cranial nerve deficit. Sensory: No sensory deficit. Motor: No weakness. Coordination: Romberg sign negative. Coordination normal. Btigpk-Ehdo-Hnvqix Test normal. Gait: Gait normal. Deep Tendon Reflexes: Reflex Scores: Tricep reflexes are 2+ on the right side and 2+ on the left side. Bicep reflexes are 2+ on the right side and 2+ on the left side. Brachioradialis reflexes are 2+ on the right side and 2+ on the left side. Patellar reflexes are 2+ on the right side and 2+ on the left side. Achilles reflexes are 2+ on the right side and 2+ on the left side. Psychiatric: Mood and Affect: Mood is anxious. Behavior: Behavior is slowed. Cognition and Memory: Memory is impaired. Comments: Articulation is somewhat slowed and slurred at times Assessment/Plan Dior was seen today for brain fog. from surgery. Diagnoses and all orders for this visit: 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[facility]) - Osmolality, urine; Future - Urinalysis (clean catch); Future - Osmolality; Future - Sodium, urine, 24 hour; Future - Basic Metabolic Panel; Future Fatigue, unspecified type Articulation disorder Poor concentration Unsure of etiology of all her symptoms but she may have suffered some event affecting her pituitary She present with many symptoms of diabetes insipidus Will do diagnostic panel for that She may also have had some type of infarct and CT may be necessary will see what initial testing demonstrates, this does seem well over and above what can be expected from anesthesia affects 3 months post surgery DAVID Rodriguez 06/19/23 [id number] documented in this encounter [id number] 04-25-2023 Evaluation note Encounter Date Diagnosis Assessment Notes Apr, Dysuria (ICD-10 - R30.0) Apr, Acute cystitis with hematuria (ICD-10 - N30.01) Acute cystitis home care material was printed Drink plenty fluids, get plenty of rest. Take the Macrobid as prescribed until gone. Continue home medications as prescribed. You may take Tylenol or Motrin as needed for aches pains or fevers. Follow-up with your family physician if no improvement in 2 to 3 days [facility] Other 05-09-2023 Miscellaneous Notes* Telephone Encounter - Tabby Ramírez RN - 10/10/2022 11:24 AM EDT Thank you. Tabby Ramírez RN * Telephone Encounter - Laury Chappell - 10/10/2022 7:11 AM EDT Faxed to [facility] * Telephone Encounter - Tabby Ramírez RN - 10/09/2022 4:51 PM EDT PSS: Can you send the labs BRM ordered today to the [facility]. LMOV for patient to call the hospital first before heading over. * Telephone Encounter - Augustin Vital MD - 10/09/2022 4:26 PM EDT Orders placed for CBC and iron studies. Thanks, B * Telephone Encounter - Tabby Ramírez RN - 10/09/2022 4:09 PM EDT Patient states she does not see you until 01/04/23 but is just not feeling well. Would like to have some iron study lab work done. Would like to have that drawn at [facility]. If you place orders you would like, we can send to [place]. Please review and advise. ' Thanks. Tabby Ramírez RN [facility]* Encounter Date Diagnosis Assessment Notes Treatment Notes Treatment Clinical Notes October, Dysuria (ICD-10 - R30.0) October, Urinary tract infection, site not specified (ICD-10 - N39.0) Urinary tract infection (UTI) home care material was printed Drink plenty fluids, get plenty of rest. Take the Macrobid and Pyridium as prescribed until gone. Follow-up with your family physician if no improvement in 2 to 3 days. Continue home medications as prescribed, take Tylenol or Motrin as needed for aches pains or fevers October, Hematuria, unspecified (ICD-10 - R31.9) [facility] Other 03-30-2023 NoteHNO ID: [id number] Author: Augustin Vital MD Service: ? Author Type: Physician Type: Progress Notes Filed: 08/31/2022 8:59 PM Note Text: PATIENT NAME: Shauna Christensen DATE: 08/31/2022 PRIMARY CARE PHYSICIAN: Pedro Herrera DO Portions of this encounter note have been copied from my note from 06/22/2022 and has been updated where appropriate, and reflect my current medical decision making from today. CC: This is a 67 year old female initially referred for evaluation of iron deficiency anemia, seen for scheduled follow-up. INTERIM HISTORY: At the patient's initial visit her stools for occult blood were negative. Since then she has remained on oral iron 1 daily, which she is. Since her initial visit she has had no medical changes. Overall she feels well with no complaints. No change in bowel habits or evidence of GI bleeding. MEDICATIONS: Current Outpatient Medications Medication Sig aspirin (ASPIR-81 ORAL) Take 81 mg by mouth once daily. atorvastatin (LIPITOR) 10 mg tablet Biotin 10,000 mcg cap 1 capsule. calcium citrate (CALCITRATE) 200 mg (950 mg) tab Cholecalciferol, Vitamin D3, 250 mcg (10,000 unit) cap Take 10,000 Units by mouth. cyanocobalamin (VITAMIN B-12) 100 mcg tab Take 100 mcg by mouth. (Patient not taking: No sig reported) FEROSUL 325 mg (65 mg iron) tablet Take 1 tablet by mouth daily with breakfast. SYNTHROID 50 mcg tablet metFORMIN (GLUCOPHAGE) 500 mg tablet MV with Cta-Ilkgbgwb-Wpaxeq (CENTRUM SILVER) 0.4 mg-300 mcg- 250 mcg tab See Admin Instructions. oxybutynin ER (DITROPAN XL) 15 mg 24 hr Extended Rel Tab No current facility-administered medications for this visit. ALLERGIES: ALLERGIES No Known Allergies PAST MEDICAL HISTORY: PAST MEDICAL HISTORY Diagnosis Date Arthritis Chronic fatigue syndrome Hypothyroidism Insulin resistance Mixed hyperlipidemia Reddy's neuroma of right foot Obstructive sleep apnea Osteoarthritis of both knees Osteopenia Peripheral venous insufficiency Peripheral venous insufficiency Prediabetes Primary ovarian failure Rosacea Vitamin D deficiency PAST SURGICAL HISTORY: PAST SURGICAL HISTORY Procedure Laterality Date SNGL x2 PAST SURGICAL HISTORY OF Bilateral knee scraped PAST SURGICAL HISTORY OF Clogged duct removal in breast PKG EMP SCLEROTHERAPY/VERICOSE VEINS, MULTIPLE VEINS FAMILY HISTORY: FAMILY HISTORY Problem Relation Age of Onset Hodgkin Lymphoma Mother Leukemia Father SOCIAL HISTORY: Social History Tobacco Use Smoking status: Never Passive exposure: Never Smokeless tobacco: Never Substance Use Topics Alcohol use: Yes Comment: occasional Drug use: Not Currently COMPLETE REVIEW OF SYSTEMS: CONSTITUTION: Negative for pain, fatigue, weight loss, or appetite loss. EENT: Negative for mouth soreness, antibiotics use, epistaxis, visual problems, neck or facial swelling, fever/chills, bleeding gums, or hearing loss. CV: Negative for edema, calf swelling, palpitations, or chest pain. RESPIRATORY: Negative for cough, SOB, hemoptysis, or wheezing. GI: Negative for nausea/vomiting, heartburn, vomiting blood, dysphasia, diarrhea, blood in stool, constipation, early satiety, PICA, vegetarian, poor nutrition, abdominal fullness, or abdominal pain. NEUROLOGICAL: Negative for numbness/tingling, dizziness, gait disturbance, headache, speech disturbance, tremor, hemiparesis/sensory loss, or change in mental status. MUSCULOSKELETAL: Negative for joint pain, joint swelling, or proximal muscle weakness. SKIN: Negative for hair loss, bruising, nail changes, rash, itching, pallor, or jaundice. ENDO/URO: Negative for hot flashes, cold or heat intolerance, urinary frequency, urinary hesitancy, menorrhagia, or hematuria. PSYCH: Negative for anxiety, depression, or other. PHYSICAL EXAM: BP 139/73 Pulse 75 Temp 36.2 ?C (97.1 ?F) (Temporal) Resp 16 Ht 159.6 cm (5' 2.84 ) Wt 85.7 kg (189 lb) SpO2 99% BMI 33.66 kg/m? GENERAL EXAM: Well developed/well nourished; in no acute distress. SKIN: Negative for lesions, rashes, or ulcers on the upper and lower extremities and face. Negative for palpations/nodules, purpura, and ecchymosis. EENT: Negative for conjunctiva, mucosal pallor, JVD, LAP, thyromegaly, and glossitis. Supple AND PERRL. EXTREMITIES: Negative for cyanosis, clubbing, and crepitus. LUNGS: Negative to auscultation, respiratory effort, and percussion. CARDIOVASCULAR: Regular rate. Negative for murmurs/S3S4/abnormal sounds, edema, and carotid bruits. ABDOMEN: Negative for masses, hernia, and spleen/liver abnormalities. RECTAL: Not done PSYCHIATRIC: Negative for mood/affect changes, recent AND remote memory changes, and judgement and insight. NEUROLOGICAL: Alert, oriented x person, place, time. Cranial nerves 2-12 intact. Sensory for pain, light touch, vibration intact on all 4 extremities. Reflexes s (more content not included)...[facility] 08-31-2022 History of Present illness Narrative* Augustin Vital MD - 08/31/2022 8:45 AM EDT PATIENT NAME: Shauna Christensen DATE: 08/31/2022 PRIMARY CARE PHYSICIAN: Pedro Herrera DO Portions of this encounter note have been copied from my note from 06/22/2022 and has been updated where appropriate, and reflect my current medical decision making from today. CC: This is a 67 year old female initially referred for evaluation of iron deficiency anemia, seen for scheduled follow-up. INTERIM HISTORY: At the patient's initial visit her stools for occult blood were negative. Since then she has remained on oral iron 1 daily, which she is. Since her initial visit she has had no medical changes. Overall she feels well with no complaints. No change in bowel habits or evidence of GI bleeding. MEDICATIONS: Current Outpatient Medications Medication Sig aspirin (ASPIR-81 ORAL) Take 81 mg by mouth once daily. atorvastatin (LIPITOR) 10 mg tablet Biotin 10,000 mcg cap 1 capsule. calcium citrate (CALCITRATE) 200 mg (950 mg) tab Cholecalciferol, Vitamin D3, 250 mcg (10,000 unit) cap Take 10,000 Units by mouth. cyanocobalamin (VITAMIN B-12) 100 mcg tab Take 100 mcg by mouth. (Patient not taking: No sig reported) FEROSUL 325 mg (65 mg iron) tablet Take 1 tablet by mouth daily with breakfast. SYNTHROID 50 mcg tablet metFORMIN (GLUCOPHAGE) 500 mg tablet MV with Nxw-Frtizlmv-Vgifrf (CENTRUM SILVER) 0.4 mg-300 mcg- 250 mcg tab See Admin Instructions. oxybutynin ER (DITROPAN XL) 15 mg 24 hr Extended Rel Tab No current facility-administered medications for this visit. ALLERGIES: ALLERGIES No Known Allergies PAST MEDICAL HISTORY: PAST MEDICAL HISTORY Diagnosis Date Arthritis Chronic fatigue syndrome Hypothyroidism Insulin resistance Mixed hyperlipidemia Reddy's neuroma of right foot Obstructive sleep apnea Osteoarthritis of both knees Osteopenia Peripheral venous insufficiency Peripheral venous insufficiency Prediabetes Primary ovarian failure Rosacea Vitamin D deficiency PAST SURGICAL HISTORY: PAST SURGICAL HISTORY Procedure Laterality Date SNGL x2 PAST SURGICAL HISTORY OF Bilateral knee scraped PAST SURGICAL HISTORY OF Clogged duct removal in breast PKG EMP SCLEROTHERAPY/VERICOSE VEINS, MULTIPLE VEINS FAMILY HISTORY: FAMILY HISTORY Problem Relation Age of Onset Hodgkin Lymphoma Mother Leukemia Father SOCIAL HISTORY: Social History Tobacco Use Smoking status: Never Passive exposure: Never Smokeless tobacco: Never Substance Use Topics Alcohol use: Yes Comment: occasional Drug use: Not Currently COMPLETE REVIEW OF SYSTEMS: CONSTITUTION: Negative for pain, fatigue, weight loss, or appetite loss. EENT: Negative for mouth soreness, antibiotics use, epistaxis, visual problems, neck or facial swelling, fever/chills, bleeding gums, or hearing loss. CV: Negative for edema, calf swelling, palpitations, or chest pain. RESPIRATORY: Negative for cough, SOB, hemoptysis, or wheezing. GI: Negative for nausea/vomiting, heartburn, vomiting blood, dysphasia, diarrhea, blood in stool, constipation, early satiety, PICA, vegetarian, poor nutrition, abdominal fullness, or abdominal pain. NEUROLOGICAL: Negative for numbness/tingling, dizziness, gait disturbance, headache, speech disturbance, tremor, hemiparesis/sensory loss, or change in mental status. MUSCULOSKELETAL: Negative for joint pain, joint swelling, or proximal muscle weakness. SKIN: Negative for hair loss, bruising, nail changes, rash, itching, pallor, or jaundice. ENDO/URO: Negative for hot flashes, cold or heat intolerance, urinary frequency, urinary hesitancy,menorrhagia, or hematuria. PSYCH: Negative for anxiety, depression, or other. PHYSICAL EXAM: BP 139/73 Pulse 75 Temp 36.2 C (97.1 F) (Temporal) Resp 16 Ht 159.6 cm (5' 2.84 ) Wt 85.7 kg (189 lb) SpO2 99% BMI 33.66 kg/m GENERAL EXAM: Well developed/well nourished; in no acute distress. SKIN: Negative for lesions, rashes, or ulcers on the upper and lower extremities and face. Negativefor palpations/nodules, purpura, and ecchymosis. EENT: Negative for conjunctiva, mucosal pallor, JVD, LAP, thyromegaly, and glossitis. Supple & PERRL. EXTREMITIES: Negative for cyanosis, clubbing, and crepitus. LUNGS: Negative to auscultation, respiratory effort, and percussion. CARDIOVASCULAR: Regular rate. Negative for murmurs/S3S4/abnormal sounds, edema, and carotid bruits. ABDOMEN: Negative for masses, hernia, and spleen/liver abnormalities. RECTAL: Not done PSYCHIATRIC: Negative for mood/affect changes, recent & remote memory changes, and judgement and insight. NEUROLOGICAL: Alert, oriented x person, place, time. Cranial nerves 2-12 intact. Sensory for pain, light touch, vibration intact on all 4 extremities. Reflexes symmetric for biceps/brachioradial/patella/achilles. MUSCULOSKELETAL: Negative examination of joints, bones, muscles/tendons of all four extremities forinspection, percussion, and palpation. Negative for misallignment, asymmetry, crepitation, tenderness, mass, effusions. Range of motion normal. Negative for joint instability, laxity, dislocation. Gait steady. Negative for swelling, erythema, tenderness, soft tissue swelling, and atrophy. LABS: Hemoglobin (g/dL) Date Value 08/31/2022 12.7 Hematocrit (%) Date Value 08/31/2022 39.1 WBC (k/uL) Date Value 08/31/2022 6.25 Platelet Count (k/uL) Date Value 08/31/2022 281 ASSESSMENT/PLAN: 1. Iron deficiency anemia - ICD9: 280.9, ICD10: D50.9 (primary diagnosis) The patient was initially diagnosed with iron deficiency anemia after developing a COVID infection in August 2020. Prior to that she had no known hematologic problems. Labs obtained 08/05/2020 revealed a hemoglobin of 10.5 with a low MCV of 77. She was started on oral iron 1 daily and her anemia improved. She underwent a colonoscopy on 10/13/2020 and no abnormalities were seen. Her initial course of oral iron was stopped after several months. Follow-up labs obtained 03/10/2022 revealed recurrent iron deficiency anemia with a hemoglobin of 7.2 and low MCV of 71. In March 2022 she resumed oral iron with ferrous sulfate 1 daily. Subsequent labs 06/02/2022 were improved with a hemoglobin of 10.1 and oral iron 1 daily was continued. When seen in June 2022 stools for occult blood were negative.Currently the patient is clinically stable and hemoglobin has increased to 12.7. At this time the patient will continue as is with oral iron 1 daily. I will see her back in 4 months with labs. When her iron stores are back to normal she will discontinue iron. We will monitor clinically, and consider repeat GI evaluation if any evidence of GI bleeding. 2. Acquired hypothyroidism - ICD9: 244.9, ICD10: E03.9 Stable on current medications, continue per PCP. 3. Arthritis - ICD9: 716.90, ICD10: M19.90 Chronic bilateral knee pain secondary to osteoarthritis. Currently the patient is scheduled undergoa right TKA February 2023. Augustin Vital MD [facility] Miscellaneous Notes* Telephone Encounter - Dorothy Khan RN - 06/26/2022 2:53 PM EST Informed pt of Dr Vital's message. Pt verbalized understanding and denies further needs at this time. Dorothy Khan RN * Telephone Encounter - Dorothy Khan RN - 06/26/2022 2:32 PM EST ----- Message from Augustin Vital MD sent at 06/26/2022 12:04 PM EST ----- Please inform the patient that her iron levels are still a little low but overall improving. Her B12 level and other labs are normal. She should continue oral iron as planned. We will wait stools foroccult blood, and if positive she should see GI for endoscopy. We will see her back as scheduled. Thanks, BRM [facility] NoteHNO ID: [id number] Author: Augustin Vital MD Service: ? Author Type: Physician Type: Progress Notes Filed: 06/23/2022 7:43 AM Note Text: PATIENT NAME: Shauna Christensen DATE: 06/22/2022 PRIMARY CARE PHYSICIAN: Pedro Herrera DO HPI: This is a 67 year old female referred for evaluation of iron deficiency anemia. Apparently the patient was initially diagnosed with iron deficiency anemia after developing a COVID infection in August 2020. Prior to that she had no known hematologic problems. Labs obtained 08/05/2020 revealed a hemoglobin of 10.5 with a low MCV of 77. Apparently she was started on oral iron 1 daily and her anemia improved. She underwent a colonoscopy on 10/13/2020, no abnormalities were seen. Her initial course of oral iron was stopped after several months. Follow-up labs obtained 03/10/2022 revealed recurrent iron deficiency anemia with a hemoglobin of 7.2 and low MCV of 71. She resumed oral iron with ferrous sulfate 1 daily. Subsequent labs 06/02/2022 were improved with a hemoglobin of 10.1. The patient appears to be tolerating her oral iron quite well. Throughout this time she has had no evidence of GI bleeding or other blood loss. On follow-up today she does have mild fatigue, otherwise feels fairly well. No abdominal pain or other GI symptoms. No unusual fevers, night sweats, or weight loss. MEDICATIONS: Current Outpatient Medications Medication Sig atorvastatin (LIPITOR) 10 mg tablet Biotin 10,000 mcg cap 1 capsule. calcium citrate (CALCITRATE) 200 mg (950 mg) tab Cholecalciferol, Vitamin D3, 250 mcg (10,000 unit) cap Take 10,000 Units by mouth. cyanocobalamin (VITAMIN B-12) 100 mcg tab Take 100 mcg by mouth. FEROSUL 325 mg (65 mg iron) tablet Take 1 tablet by mouth daily with breakfast. SYNTHROID 50 mcg tablet metFORMIN (GLUCOPHAGE) 500 mg tablet MV with Dam-Xokgmlsq-Tfiqio (CENTRUM SILVER) 0.4 mg-300 mcg- 250 mcg tab See Admin Instructions. oxybutynin ER (DITROPAN XL) 15 mg 24 hr Extended Rel Tab No current facility-administered medications for this visit. ALLERGIES: ALLERGIES No Known Allergies PAST MEDICAL HISTORY: PAST MEDICAL HISTORY Diagnosis Date Arthritis Chronic fatigue syndrome Hypothyroidism Insulin resistance Mixed hyperlipidemia Reddy's neuroma of right foot Obstructive sleep apnea Osteoarthritis of both knees Osteopenia Peripheral venous insufficiency Peripheral venous insufficiency Prediabetes Primary ovarian failure Rosacea Vitamin D deficiency PAST SURGICAL HISTORY: No past surgical history on file. FAMILY HISTORY: No family history on file. SOCIAL HISTORY: Social History Tobacco Use Smoking status: Never Smokeless tobacco: Never Substance Use Topics Alcohol use: Yes Comment: occasional COMPLETE REVIEW OF SYSTEMS: CONSTITUTION: Negative for pain, fatigue, weight loss, or appetite loss. EENT: Negative for mouth soreness, antibiotics use, epistaxis, visual problems, neck or facial swelling, fever/chills, bleeding gums, or hearing loss. CV: Negative for edema, calf swelling, palpitations, or chest pain. RESPIRATORY: Negative for cough, SOB, hemoptysis, or wheezing. GI: Negative for nausea/vomiting, heartburn, vomiting blood, dysphasia, diarrhea, blood in stool, constipation, early satiety, PICA, vegetarian, poor nutrition, abdominal fullness, or abdominal pain. NEUROLOGICAL: Negative for numbness/tingling, dizziness, gait disturbance, headache, speech disturbance, tremor, hemiparesis/sensory loss, or change in mental status. MUSCULOSKELETAL: Negative for joint pain, joint swelling, or proximal muscle weakness. SKIN: Negative for hair loss, bruising, nail changes, rash, itching, pallor, or jaundice. ENDO/URO: Negative for hot flashes, cold or heat intolerance, urinary frequency, urinary hesitancy, menorrhagia, or hematuria. PSYCH: Negative for anxiety, depression, or other. PHYSICAL EXAM: BP 153/82 Pulse 84 Temp 36.5 ?C (97.7 ?F) (Temporal) Resp 16 Ht 159.6 cm (5' 2.84 ) Wt 84.9 kg (187 lb 3.2 oz) SpO2 98% BMI 33.34 kg/m? GENERAL EXAM: Well developed/well nourished; in no acute distress. SKIN: Negative for lesions, rashes, or ulcers on the upper and lower extremities and face. Negative for palpations/nodules, purpura, and ecchymosis. EENT: Negative for conjunctiva, mucosal pallor, JVD, LAP, thyromegaly, and glossitis. Supple AND PERRL. EXTREMITIES: Negative for cyanosis, clubbing, and crepitus. LUNGS: Negative to auscultation, respiratory effort, and percussion. CARDIOVASCULAR: Regular rate. Negative for murmurs/S3S4/abnormal sounds, edema, and carotid bruits. ABDOMEN: Negative for masses, hernia, and spleen/liver abnormalities. RECTAL: Not done PSYCHIATRIC: Negative for mood/affect changes, recent AND remote memory changes, and judgement and insight. NEUROLOGICAL: Alert, oriented x person, place, time. Cranial nerves 2-12 int (more content not included)...[facility]01-19-2023 History of Present illness Narrative* Augustin Vital MD - 06/22/2022 6:45 AM EST PATIENT NAME: Shauna Christensen DATE: 06/22/2022 PRIMARY CARE PHYSICIAN: Pedro Herrera DO HPI: This is a 67 year old female referred for evaluation of iron deficiency anemia. Apparently the patient was initially diagnosed with iron deficiency anemia after developing a COVIDinfection in August 2020. Prior to that she had no known hematologic problems. Labs obtained 08/05/2020 revealed a hemoglobin of 10.5 with a low MCV of 77. Apparently she was started on oral iron 1 daily and her anemia improved. She underwent a colonoscopy on 10/13/2020, no abnormalities were seen. Herinitial course of oral iron was stopped after several months. Follow-up labs obtained 03/10/2022 revealed recurrent iron deficiency anemia with a hemoglobin of 7.2 and low MCV of 71. She resumed oral iron with ferrous sulfate 1 daily. Subsequent labs 06/02/2022 were improved with a hemoglobin of 10.1. The patient appears to be tolerating her oral iron quite well. Throughout this time she has had no evidence of GI bleeding or other blood loss. On follow-up today she does have mild fatigue, otherwise feels fairly well. No abdominal pain or other GI symptoms. No unusual fevers, night sweats, or weight loss. MEDICATIONS: Current Outpatient Medications Medication Sig atorvastatin (LIPITOR) 10 mg tablet Biotin 10,000 mcg cap 1 capsule. calcium citrate (CALCITRATE) 200 mg (950 mg) tab Cholecalciferol, Vitamin D3, 250 mcg (10,000 unit) cap Take 10,000 Units by mouth. cyanocobalamin (VITAMIN B-12) 100 mcg tab Take 100 mcg by mouth. FEROSUL 325 mg (65 mg iron) tablet Take 1 tablet by mouth daily with breakfast. SYNTHROID 50 mcg tablet metFORMIN (GLUCOPHAGE) 500 mg tablet MV with Rth-Eqtcbekj-Ejtgbm (CENTRUM SILVER) 0.4 mg-300 mcg- 250 mcg tab See Admin Instructions. oxybutynin ER (DITROPAN XL) 15 mg 24 hr Extended Rel Tab No current facility-administered medications for this visit. ALLERGIES: ALLERGIES No Known Allergies PAST MEDICAL HISTORY: PAST MEDICAL HISTORY Diagnosis Date Arthritis Chronic fatigue syndrome Hypothyroidism Insulin resistance Mixed hyperlipidemia Reddy's neuroma of right foot Obstructive sleep apnea Osteoarthritis of both knees Osteopenia Peripheral venous insufficiency Peripheral venous insufficiency Prediabetes Primary ovarian failure Rosacea Vitamin D deficiency PAST SURGICAL HISTORY: No past surgical history on file. FAMILY HISTORY: No family history on file. SOCIAL HISTORY: Social History Tobacco Use Smoking status: Never Smokeless tobacco: Never Substance Use Topics Alcohol use: Yes Comment: occasional COMPLETE REVIEW OF SYSTEMS: CONSTITUTION: Negative for pain, fatigue, weight loss, or appetite loss. EENT: Negative for mouth soreness, antibiotics use, epistaxis, visual problems, neck or facial swelling, fever/chills, bleeding gums, or hearing loss. CV: Negative for edema, calf swelling, palpitations, or chest pain. RESPIRATORY: Negative for cough, SOB, hemoptysis, or wheezing. GI: Negative for nausea/vomiting, heartburn, vomiting blood, dysphasia, diarrhea, blood in stool, constipation, early satiety, PICA, vegetarian, poor nutrition, abdominal fullness, or abdominal pain. NEUROLOGICAL: Negative for numbness/tingling, dizziness, gait disturbance, headache, speech disturbance, tremor, hemiparesis/sensory loss, or change in mental status. MUSCULOSKELETAL: Negative for joint pain, joint swelling, or proximal muscle weakness. SKIN: Negative for hair loss, bruising, nail changes, rash, itching, pallor, or jaundice. ENDO/URO: Negative for hot flashes, cold or heat intolerance, urinary frequency, urinary hesitancy,menorrhagia, or hematuria. PSYCH: Negative for anxiety, depression, or other. PHYSICAL EXAM: BP 153/82 Pulse 84 Temp 36.5 C (97.7 F) (Temporal) Resp 16 Ht 159.6 cm (5' 2.84 ) Wt 84.9 kg (187 lb 3.2 oz) SpO2 98% BMI 33.34 kg/m GENERAL EXAM: Well developed/well nourished; in no acute distress. SKIN: Negative for lesions, rashes, or ulcers on the upper and lower extremities and face. Negativefor palpations/nodules, purpura, and ecchymosis. EENT: Negative for conjunctiva, mucosal pallor, JVD, LAP, thyromegaly, and glossitis. Supple & PERRL. EXTREMITIES: Negative for cyanosis, clubbing, and crepitus. LUNGS: Negative to auscultation, respiratory effort, and percussion. CARDIOVASCULAR: Regular rate. Negative for murmurs/S3S4/abnormal sounds, edema, and carotid bruits. ABDOMEN: Negative for masses, hernia, and spleen/liver abnormalities. RECTAL: Not done PSYCHIATRIC: Negative for mood/affect changes, recent & remote memory changes, and judgement and insight. NEUROLOGICAL: Alert, oriented x person, place, time. Cranial nerves 2-12 intact. Sensory for pain, light touch, vibration intact on all 4 extremities. Reflexes symmetric for biceps/brachioradial/patella/achilles. MUSCULOSKELETAL: Negative examination of joints, bones, muscles/tendons of all four extremities forinspection, percussion, and palpation. Negative for misallignment, asymmetry, crepitation, tenderness, mass, effusions. Range of motion normal. Negative for joint instability, laxity, dislocation. Gait steady. Negative for swelling, erythema, tenderness, soft tissue swelling, and atrophy. LABS: Hemoglobin (g/dL) Date Value 06/22/2022 11.2 Hematocrit (%) Date Value 06/22/2022 35.3 WBC (k/uL) Date Value 06/22/2022 7.11 Platelet Count (k/uL) Date Value 06/22/2022 286 ASSESSMENT/PLAN: 1. Iron deficiency anemia - ICD9: 280.9, ICD10: D50.9 (primary diagnosis) The patient was initially diagnosed with iron deficiency anemia after developing a COVID infection in August 2020. Prior to that she had no known hematologic problems. Labs obtained 08/05/2020 revealed a hemoglobin of 10.5 with a low MCV of 77. She was started on oral iron 1 daily and her anemia improved. She underwent a colonoscopy on 10/13/2020 and no abnormalities were seen. Her initial course of oral iron was stopped after several months. Follow-up labs obtained 03/10/2022 revealed recurrent iron deficiency anemia with a hemoglobin of 7.2 and low MCV of 71. In March 2022 she resumed oral iron with ferrous sulfate 1 daily. Subsequent labs 06/02/2022 were improved with a hemoglobin of 10.1. Currently the patient is clinically stable and essentially asymptomatic. Options for further management were discussed at length. The patient is tolerating oral iron well, and it clearly is effective. Therefore I suggested she continue as is with oral iron 1 daily. The etiology of her iron deficiency is unclear, but most likely she has occult GI bleeding +/- mild malabsorption. We will check stools for occult blood, and if positive would consider referral to GI for anEGD. I will see the patient back in 2 months for follow-up and labs. We will monitor iron stores, and consider discontinuing oral iron after her iron stores are back to normal assuming she has no evidence of an ongoing GI bleed. 2. Acquired hypothyroidism - ICD9: 244.9, ICD10: E03.9 Stable on current medications, continue per PCP. 3. Arthritis - ICD9: 716.90, ICD10: M19.90 Chronic bilateral knee pain secondary to osteoarthritis. Currently the patient is scheduled undergoa right TKA February 2023. Augustin Vital MD [facility] Note [id number] Diagnosis Iron deficiency anemia, unspecified iron deficiency anemia type- Primary documented in this encounter [facility] note* Diagnosis Iron deficiency anemia, unspecified iron deficiency anemia type- Primary documented in this encounter [facility] noteNo assessment information availableLicking Memorial Hospital Work Phone: Evaluation note* Diagnosis 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[facility])- Primary Diabetes insipidus Fatigue, unspecified type 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 Poor concentration Memory loss [facility]* Diagnosis Acute pain of right knee- Primary History of total knee replacement, right documented in this encounter [facility]* Diagnosis Unilateral primary osteoarthritis, right knee- Primary Status post right knee replacement documented in this encounter [facility] general Narrative - Reported* Type Description Date Medical History bladder leakage Medical History rosacea Medical History venous insufficiency Surgical History C section x 2 Surgical History Right and left meniscus tear Surgical History plugged duct left breast Hospitalization History see above [facility] Other History general Narrative - Reported* Type Description Date Medical History bladder leakage Medical History rosacea Medical History venous insufficiency Surgical History C section x 2 Surgical History Right and left meniscus tear Surgical History plugged duct left breast Surgical History knee replacement 02/2023 Hospitalization History see above [facility] Other InstructionsNot on filedocumented in this encounter [facility] SystemInstructionsNot on filedocumented in this encounter [facility] SystemReason for referral (narrative)* Consultation (Routine) - Pending Review Specialty Diagnoses / Procedures Referred By Clarisse flores Referred To Contact Physical Therapy Diagnoses Acute pain of right knee Procedures [place] OFFICE/OUTPATIENT NEW HIGH MDM 60 MINUTES Jr. Krishna Trujillo, DO [address] [facility] [address] [place] [address] Oneal Weston, PT [address] [facility] [address] [place] [address] Referral ID Status Reason Start Date Expiration Date Visits Requested Visits Authorized [id number] Pending Review Consult and Treat 07/04/2023 12/31/2023 1 1 [facility] Summary Purpose Family History Relationship Condition Age at Onset Recorded Date/T andree father Unknown family member Unknown mother Malignant neoplasm Unknown Unknown Advance Directives Advance Directive Response Recorded Date/ Time Advance Directives No August 20 10:18am Advance Directive Response Recorded Date/ Time Advance Directives No August 20 11:18am Chief Complaint and Reason for Visit Chief Complaint Dysuria Chief Complaint poison prema face/hand s Additional Source Comments INFORMATION SOURCE (unrecogn ized section and content) DATE CREATED AUTHOR 02/11/2022 [facility] DATE CREATED AUTHOR AUTHOR'S ORGANIZ ATION 06/12/2022 [facility] dical Specialist DATE CREATED AUTHOR AUTHOR'S ORGANIZ ATION 08/12/2022 [facility] DATE CREATED AUTHOR AUTHOR'S ORGANIZ ATION 10/12/2022 [facility] DATE CREATED AUTHOR AUTHOR'S ORGANIZ ATION 10/15/2022 [facility] DATE CREATED AUTHOR AUTHOR'S ORGANIZ ATION 05/09/2023 [facility] DATE CREATED AUTHOR AUTHOR'S ORGANIZ ATION 07/19/2023 [facility] DATE CREATED AUTHOR AUTHOR'S ORGANIZ ATION 10/12/2023 [facility] DATE CREATED AUTHOR AUTHOR'S ORGANIZ ATION 11/27/2023 [facility] DATE CREATED AUTHOR AUTHOR'S ORGANIZ ATION 01/09/2024 [facility] dicnj Specialists EPIC Source Comments (unrecognize d section and content) In the event this informatio n is protected by the Federal Confidentiality of Alcohol and Drug Abuse Patient Records regulations: The Federal rules restrict any use of the information to criminally investigate or prosecute any alcohol or drug abuse patient.[facility] Hospital[facility] the event this information is protected by the Federal Confidentiality of Alcohol and Drug Abuse Patient Records regulations: The Federal rules restrict any use of the information to criminally investigate or prosecute any alcohol or drug abuse patient.[facility] HospitalIn the event this information is protected by the Federal Confidentiality of Alcohol and Drug Abuse Patient Records regulations: The Federal rules restrict any use of the information to criminally investigate or prosecute any alcohol or drug abuse patient.[facility] Hospital[facility] the event this information is protected by the Federal Confidentiality of Alcohol and Drug Abuse Patient Records regulations: The Federal rules restrict any use of the information to criminally investigate or prosecute any alcohol or drug abuse patient.[facility] Hospital[facility] the event this information is protected by the Federal Confidentiality of Alcohol and Drug Abuse Patient Records regulations: The Federal rules restrict any use of the information to criminally investigate or prosecute any alcohol or drug abuse patient.[facility] Care Teams (unrecognized sec tion and content) Facility Environmental Technician Relationship Specialty Start Date End Date Pedro Herrera, DO [address] [facility] [place] [phone] PCP - General Family Medicine 06/16/22 Gabo Pearce MD [address] [place] [phone] (Fax) Family Medicine 06/21/22 Facility Environmental Technician Relationship Specialty Start Date End Date Pedro Herrera, [address] [facility] [address] PCP - General Family Medicine 06/16/22 Gabo Pearce MD [address] [place] [address] (Fax) Family Medicine 06/21/22 Facility Environmental Technician Relationship Specialty Start Date End Date Pedro Herrera, [address] [place] [address] PCP - General Family Medicine 06/16/22 Gabo Pearce MD [address] [place] [address] (Fax) Family Medicine 06/21/22 Facility Environmental Technician Relationship Specialty Start Date End Date Pedro Herrera DO [address] [place] [address] PCP - General Family Medicine 06/16/22 Gabo Pearce MD [address] [place] [address] (Fax) Family Medicine 06/21/22 Facility Environmental Technician Relationship Specialty Start Date End Date Pedro Herrera DO [address] [place] [address] PCP - General Family Medicine 06/16/22 Gabo Pearce MD [address] [place] [address] (Fax) Family Medicine 06/21/22 Team Status: Inactive Member Role Status Dates RAMON JonesC Attending Provider Active Facility Environmental Technician Relationship Specialty Start Date End Date Pedro Herrera DO [address] [place] [address] PCP - General Family Medicine 10/12/20 Facility Environmental Technician Relationship Specialty Start Date End Date Pedro Herrera DO [address], [place] [address] PCP - General Family Medicine 10/12/20 Facility Environmental Technician Relationship Specialty Start Date End Date Pedro Herrera MD [address], [place] [address] PCP - General Family Medicine 02/27/23 Facility Environmental Technician Relationship Specialty Start Date End Date Pedro Herrera MD [address] [facility] [place] [place] [address] PCP - General Family Medicine 02/27/23 Facility Environmental Technician Relationship Specialty Start Date End Date Pedro Herrera MD [address], [facility] [place] [address] PCP - General Family Medicine 02/27/23 Team Status: Active Member Role Status Dates Pedro Herrera DO Primary Care Provider Active Team Status: Inactive Member Role Status Dates Pedro Herrera DO Primary Care Provider Active Start: January 16, 2024 End: January 16, 2024 Deann Valentino APRN Attending Provider Active Start: January 16, 2024 End: January 16, 2024 Reason for Visit (unrecogniz ed section and content) Reason Comments Anemia New patient consult Reason Comments Results Reason Comments Anemia 2 month follow up Reason Comments Orders Reason Comments brain fog. from surgery Reason Onset Date Comments Med Refill 07/02/2023 Reason Comments Pain Specialty Diagnoses / Procedures Referred By Contac t Referred To Contact Physical Therapy Diagnoses Presence of right artificial knee joint Procedures [place] THERAPEUTIC PX 1/> AREAS EACH 15 MIN EXERCISES PHYS/OCC THERAPY SS [place] THER PX 1/> AREAS EACH 15 MIN NEUROMUSC REEDUCA [place] MANUAL THERAPY TQS 1/> REGIONS EACH 15 MINUTES Jr. Krishna Trujillo DO [address] [facility] [address] [place] [address] Taryn Bell, PT [address] [place] [address] Referral ID Status Reason Start Date Expiration Date Visits Re quested Visits Authorized [id number] Closed 06/06/2023 02/22/2024 1 10 Reason Comments Med Refill Goals (unrecognized section and content) Goals may be documented in a n alternate section FOR RECORDS PERTAINING TO PATIENTS WHO ARE OR HAVE BEEN ENROLLED IN A CHEMICAL DEPENDENCY/SUBSTANCEABUSE PROGRAM, SOME INFORMATION MAY BE OMITTED. This clinical summary was aggregated from multiple sources. Caution should be exercised in using it in the provision of clinical care. This summary normalizes information from multiple sources, and as a consequence, information in this document may materially change the coding, format and clinical context of patient data. In addition, data may be omitted in some cases. CLINICAL DECISIONS SHOULD BE BASED ON THE PRIMARY CLINICAL RECORDS. [facility] [employer] [facility]. provides no warranty or guarantee of the accuracy or completeness of information in this document.
== END 2024-01-16 10:07 | disposition home or self-care (01) ==
PROVIDERS: Emergency Provider Emergency Medicine; PCP Family Medicine
DX: L25.9 Unspecified contact dermatitis, unspecified cause (principal)
CPT/HCPCS: 99283

== ENCOUNTER 2024-04-02 07:31 | Outpatient (OUT) | payer MEDICARE, SELFPAY ==
--- OUTSIDE RECORDS SUMMARY | 2024-04-02 07:34 | XMS_ITS | CCD ---
Author Organization [facility] CliniSyal Care Team Providers Care Animal Care Giver Name [facility] Primary Care Provider Ramses ANTUNEZ, Gabo Muhammad Unavailable Mayank Michael MD, V. Attending Unavailable Mayank Michael MD, V. Admitting Unavailable FURLONG, PEDRO Ayoub Primary Care Unavailable Taryn Dobson Unavailable SEEMA, DR VILLANUEVA Consulting Unavailable FURLONG, DR PEDRO Ayoub Primary Care Unavailable SEEMA, DR VILLANUEVA Attending Unavailable SEEMA, DR VILLANUEVA Admitting Unavailable CARLEE, WERNER Admitting Unavailable CARLEE, WERNER Attending Unavailable FURLONG, DR PEDRO Ayoub Primary Care Unavailable EVA, DR MAYANK Castillo Consulting Unavailable CARLEE, WERNER Consulting Unavailable WEST, DR MAYANK Castillo Consulting Unavailable FURLONG, DR PEDRO Ayoub Primary Care Unavailable WEST, DR MAYANK Castillo Attending Unavailable WEST, DR MAYANK Castillo Admitting Unavailable FURLONG, DR PEDRO Ayoub Admitting Unavailable FURLONG, DR PEDRO Ayoub Attending Unavailable FURLONG, DR PEDRO Ayoub Primary Care Unavailable FURLONG, DR PEDRO Ayoub Consulting Unavailable FURLONG, DR PEDRO Ayoub Consulting Unavailable FURLONG, DR PEDRO Ayoub Primary Care Unavailable FURLONG, DR PEDRO Ayoub Attending Unavailable FURLONG, DR PEDRO Ayoub Admitting Unavailable EVA, DR MAYANK Castillo Consulting Unavailable FURLONG, DR PEDRO Ayoub Primary Care Unavailable EVA, DR MAYANK Castillo Attending Unavailable EVA, DR MAYANK Castillo Admitting Unavailable CARLEE, WERNER Admitting Unavailable CARLEE, WERNER Attending Unavailable FURLONG, DR PEDRO Ayoub Primary Care Unavailable ALTON BARRERA Consulting Unavailable CARLEE, WERNER Consulting Unavailable EVA, DR MAYANK Castillo Consulting Unavailable FURLONG, DR PEDRO Ayoub Primary Care Unavailable EVA, DR MAYANK Castillo Attending Unavailable EVA, DR MAYANK Castillo Admitting Unavailable WEST, DR [...] Castillo Admitting Unavailable WEST, DR MAYANK Castillo Consulting Unavailable FURLONG, DR PEDRO Ayoub Primary Care Unavailable WEST, DR MAYANK Castillo Attending Unavailable WEST, DR MAYANK Castillo Admcarlos Unavailable WEST, DR MAYANK Castillo Admcarlos Unavailable WEST, DR MAYANK Castillo Attending Unavailable [...] [employer] Consulting Unavailable SCOTT Dobson Attending Provider [phone] Taryn Dobson Admitting Unavailable Taryn Dobson Attending Unavailable Taryn Dobson Attending Unavailable Taryn Dobson Admitting Unavailable Furlong Pedro MONROY Primary Care Provider Pedro Rodriguez MD Primary Care Provider JANELLE LEY Referring Unavailable FURLONG, PEDRO G Primary Care Unavailable TARYN BELL Attending Unavailable STEPANIC, JR., KRISHNA Venegas Referring Unavaila ble TARYN BELL Attending Unavailable STEPANIC, JR., KRISHNA Venegas Referring Unavaila ble TARYN BELL Attending Unavailable STEPANIC, JR., KRISHNA Venegas Referring Unavaila ble BELL, TARYN Banks Attending Unavailable STEPANIC, JR., KRISHNA Venegas Referring Unavaila ble TARYN BELL Attending Unavailable STEPANIC, JR., KRISHNA Venegas Referring Unavaila ble STEPANIC, JR., KRISHNA Venegas Attending Unavaila ble TARYN BELL Attending Unavailable STEPANIC, JR., KRISHNA Venegas Referring Unavaila ble TARYN BELL Attending Unavailable STEPANIC, JR., KRISHNA Venegas Referring Unavaila ble RAY, TARYN Banks Attending Unavailable STEPANIC, JR., KRISHNA Venegas Referring Unavaila ble TOM HUERTA Attending Unavailable STEPANIC, JR., KRISHNA Venegas Attending Unavaila ble TARYN BELL Attending Unavailable STEPANIC, JR., KRISHNA Venegas Referring Unavaila ble STEPANIC, JR., KRISHNA Venegas Attending Unavaila ble TARYN BELL Attending Unavailable STEPANIC, JR., KRISHNA Venegas Referring Unavaila ble STEPANIC, JR., KRISHNA Venegas Attending Unavaila ble TARYN BELL Attending Unavailable STEPANIC, JR., KRISHNA Venegas Referring Unavaila ble FURLONG, PEDRO G Attending Unavailable FURLONG, PEDRO G Referring Unavailable FURLONG, PEDRO G Primary Care Unavailable FURLONG, PEDRO G Attending Unavailable FURLONG, PEDRO G Referring Unavailable FURLONG, PEDRO G Primary Care Unavailable FURLONG, PEDRO G Referring Unavailable FURLONG, PEDRO G Primary Care Unavailable FURLONG, PEDRO G Attending Unavailable FURLONG, PEDRO G Referring Unavailable FURLONG, PEDRO G Primary Care Unavailable JANELLE LEY Attending Unavailable FURLONG, PEDRO G Referring Unavailable FURLONG, PEDRO G Primary Care Unavailable FURLONG, PEDRO G Referring Unavailable FURLONG, PEDRO G Primary Care Unavailable FURLONG, PEDRO G Referring Unavailable FURLONG, PEDRO G Primary Care Unavailable Furlong Pedro MONROY Primary Care Provider SUZIE PATEL Attending Unavailable PEDRO RODRIGUEZ Referring Unavailab le FURLONG, PEDRO HERNANDES Primary Care Unavailab le FURLONG, PEDRO HERNANDES Primary Care Unavailab le Medications Current Medications Medication Drug Class(es) Dates Sig (Normalized) Sig (Original) aspirin 81 mg oral tablet (11 sources) Platelet Aggregation Inhibitor, Nonsteroidal Anti-inflammatory Drug take 81 mg by mouth once daily aspirin (ASPIR-81 ORAL) Take 81 mg by mouth once daily. Active take 1 tablet by mouth in the mo rning aspirin 81 MG EC tablet Take 81 mg by mouth in the morning. 0 Active Comment on above: Take 81 mg by mouth once daily. atorvastatin 20 mg oral tablet (20 sources) HMG-CoA Reductase Inhibitor Start: take 20 mg by mouth once daily Atorvastatin Active 20 MG PO Daily January 16, 2024 12:00am Start: 04-17-2023 take 1 tablet by lovely th in the morning atorvastatin (LIPITOR) 20 mg tablet Take 1 tablet (20 mg total) by mouth in the morning. 90 tablet 3 04/17/2023 Active Start: 06-06-2022 atorvastatin ( LIPITOR) 10 mg tablet 06/06/2022 Active Lipitor Active biotin 10 mg oral capsule (20 sources) Biotin 10,000 mc g cap 1 capsule. Active biotin 93025 MCG tablet 1 capsule 1 (one) time each day at the same time. 0 Active Biotin Active Comment on above: 1 capsule. Calcium Carbonate (4 sources) Calcium Carbonat e (CALCIUM 600 PO) Take by mouth. 0 Active calcium citrate 950 mg oral tablet (16 sources) calcium citrate (CALCITRATE) 200 mg (950 mg) tab Active Calcium Citrate Active Centrum Silver (5 sources) Centrum Silver A ctive cholecalciferol 0.25 mg oral capsule (15 sources) Vitamin D Cholecalciferol, Vitamin D3, 250 mcg (10,000 unit) cap Take 10,000 Units by mouth. Active take 1 capsule by mouth in the m orning cholecalciferol (Vitamin D-3) 350 MCG (79517 UT) capsule Take 14,000 Units by mouth in the morning. 0 Active Comment on above: Take 10,000 Units by mouth. ferrous sulfate 325 mg oral tablet (16 sources) Start: 01-16-2024 take 1 tablet by mouth once daily Ferrous Sulfate (Feosol) 325 mg (65 mg iron) tablet Active 325 MG PO Daily January 16, 2024 12:00am Start: 06-15-2022 take 1 tablet by lovely th once daily at breakfast FEROSUL 325 mg (65 mg iron) tablet Take 1 tablet by mouth daily with breakfast. 06/15/2022 Active Start: 06-15-2022 take 1 tablet by lovely th at mealtime ferrous sulfate 325 (65 Fe) MG tablet Take 325 mg by mouth in the morning. Take with meals. 0 06/15/2022 Active take 1 tablet by lovely th once daily at breakfast ferrous sulfate 325 (65 FE) mg EC tablet Take 1 tablet (325 mg total) by mouth daily with breakfast. 0 Active Comment on above: Take 1 tablet by lovely th daily with breakfast. Iron (5 sources) Iron Active levothyroxine sodium 0.05 mg oral tablet (20 sources) l-Thyroxine Start: 05-06-2022 End: 08-28-2023 SYNTHROID 50 mcg tablet 05/06/2022 Active Levothyroxine So dium Active metFORMIN hydrochloride 500 mg oral tablet (20 sources) Biguanide Start: 06-06-2022 metFORMIN (GLU COPHAGE) 500 mg tablet 06/06/2022 Active metFORMIN HCl Ac tive pdfpurof-zfh-WC-lycopen-lute in (CENTRUM SILVER) 0.4 mg-300 mcg- 250 mcg tablet (3 sources) pjbnavaq-pfn-OP- lycopen-lutein (CENTRUM SILVER) 0.4 mg-300 mcg- 250 mcg tablet See Admin Instructions. 0 Active dieuwqhsqcaz-gswj-aksrglbp-f olic acid (Centrum Silver, geriatric,) tablet (4 sources) multivitamin-iro t-niswbdft-sgjeb acid (Centrum Silver, geriatric,) tablet as directed Orally 0 Active MV with Org-Xxkebegx-Pcnshu (CENTRUM SILVER) 0.4 mg-300 mcg- 250 mcg tab (8 sources) MV with Min-Lyco pene-Lutein (CENTRUM SILVER) 0.4 mg-300 mcg- 250 mcg tab See Admin Instructions. Active MV with Min-Lyco pene-Lutein (CENTRUM SILVER) 0.4 mg-300 mcg- 250 mcg tab See Admin Instructions. 0 Active Comment on above: See Admin Instructio ns. nitrofurantoin, macrocrystals 25 mg / nitrofurantoin, monohydrate 75 mg oral capsule (7 sources) Nitrofuran Antibacterial Start: 10-05-19 take 1 capsule by mouth every twelve hours Macrobid 100 MG 1 cap(s) Orally bid for 5 day(s) Apr, Active 24 hr oxybutynin chloride 15 mg extended release oral tablet (20 sources) Cholinergic Muscarinic Antagonist Start: 01-16-20 take 15 mg by mouth once daily Oxybutynin Chloride Active 15 MG PO Daily January 16, 2024 12:00am Start: 10-20-2022 oxybutynin XL (DITROPAN XL) 15 mg 24 hr tablet TAKE 1 TABLET TWICE A DAY 180 tablet 3 10/20/2022 Active Start: 05-06-2022 oxybutynin ER (DITROPAN XL) 15 mg 24 hr Extended Rel Tab 05/06/2022 Active oxybutynin XL (D itropan-XL) 15 MG 24 hr tablet 1 (one) time each day at the same time. 0 Active oxyBUTYnin Activ e Oxybutynin Activ e vitamin b12 0.1 mg oral tablet (11 sources) Vitamin B12 cyanocobalamin ( VITAMIN B-12) 100 mcg tab Take 100 mcg by mouth. Active Comment on above: Take 100 mcg by paul villa Vitamin D3 (5 sources) Vitamin D3 Activ e Completed/Discontinued Medications Medication Drug Class(es) Dates Sig (Normalized) Sig (Original) azithromycin 250 mg oral tablet (5 sources) Macrolide Antimicrobial Start: 04-24-2022 Azithromycin 250 MG 2 tablet on the first day, then 1 tablet daily for 4 days Orally Once a day for 5 day(s) Apr, Not-Taking phenazopyridine hydrochloride 200 mg oral tablet (5 [...] 07-21-2015 04-13-2023 Chronic Deficiency and other anemia (12 sources) Iron deficiency anemia; Translations: [Iron deficiency anemia, unspecified] Onset: 08-29-2020 Episodic Deficiency and other anemia (4 sources) Iron deficiency anemia, unspecified; Translations: [IRON DEFICIENCY ANEMIA UNSPECIFIED] Onset: 10-11-2022 Episodic Developmental disorders (1 source) Developmental articulation disorder; 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 Disorders of lipid metabolism (14 sources) Mixed hyperlipidemia; Translations: [Mixed hyperlipidemia] Onset: 08-25-2021 Chronic Essential [...] Onset: 01-20-2016 02-07-2022 Chronic Osteoarthritis (20 sources) Arthritis of right knee; Translations: [Unilateral primary osteoarthritis, right knee] Onset: 01-17-2018 02-07-2022 Chronic Other [...] apnea (adult) (pediatric)] Onset: 09-27-2017 02-07-2022 Chronic Thyroid disorders (8 sources) Hypothyroidism, unspecified; Translations: [Hypothyroidism] Onset: 02-01-2021 02-07-2022 Chronic Unclassified (1 source) MAW Onset: 12-11-2023 Urinary tract infections (5 sources) Urinary tract infection, site not specified; Translations: [Acute cystitis with hematuria] Episodic Past or Other Problems Problem Classification Problem Date Documented Da te Episodic/Chronic Deficiency and other anemia (3 sources) Other iron deficiency anemias; Translations: [OTHER IRON DEFICIENCY ANEMIAS] Onset: Episodic Diabetes mellitus without complication (15 sources) Prediabetes; Translations: [Hyperglycemia, unspecified] Onset: 1 02-07-2022 Episodic Fluid and electrolyte disorders (4 sources) Hyperosmolality and hypernatremia; Translations: [HYPEROSMOLALITY AND HYPERNATREMIA] Onset: 2 Episodic Mood disorders (3 sources) Mood disorders Onset: 4 06-19-2023 Other aftercare (4 sources) Long-term current use of insulin; Translations: [care home (current) use of insulin] Onset: 9 01-03-2023 [...] Translations: [Insomnia, unspecified] Onset: 1 01-03-2023 Episodic Residual codes; unclassified (1 source) Localized edema; Translations: [Localized edema] Onset: 4 Episodic Unclassified (3 sources) Onset: 3 04-13-2023 Varicose veins of lower extremity (4 sources) Varicose veins of bilateral lower extremities with pain; Translations: [VARICOSE VNS AMANDA LOW EXTREM W/PAIN] Onset: 2 Episodic Results Test Name Value Interpretation Reference Range Facility CBC W Auto Differential pane l (Bld)on 03-31-2024 Basophils (Bld) [#/Vol] 0.03 10*3/uL Normal <0.11 [facility] Comment on above: Order Comment: Speci men Type: BLOOD SPECIMEN Ordering Facility: [facility] Address: [address] [place] [address] Performed By: #### 5 7021-8 #### [facility] CLIA [id number] [address] [place] [address] 35671 Basophils/100 WBC (Bld) 0.5 % Normal [facility] Comment on above: Order Comment: Speci men Type: BLOOD SPECIMEN Ordering Facility: [facility] Address: [address] [place] [address] Performed By: #### 5 7021-8 #### [facility] CLIA [id number] [address] [place] [address] 37147 Differential cell count method Nom (Bld) Auto Normal [facility] Comment on above: Order Comment: Speci men Type: BLOOD SPECIMEN Ordering Facility: [facility] Address: [facility] [place] [id number] Performed By: #### 5 7021-8 #### [facility] CLIA [id number] [address] [place] [address] 61652 Eosinophils (Bld) [#/Vol] 0.08 10*3/uL Normal <0.46 [facility] Comment on above: Order Comment: Speci men Type: BLOOD SPECIMEN Ordering Facility: [facility] Address: [address] [place], [place] [id number] Performed By: #### 5 7021-8 #### [facility] CLIA [id number] [address] [place] [address] 44549 Eosinophils/100 WBC (Bld) 1.3 % Normal [facility] Comment on above: Order Comment: Speci men Type: BLOOD SPECIMEN Ordering Facility: [facility] Address: [address] [place] [address] Performed By: #### 5 7021-8 #### [facility] CLIA [id number] [address] [place] [address] 78532 Erythrocyte distribution width (RBC) [Ratio] 13.8 % Normal 11.5-15.0 [facility] Comment on above: Order Comment: Speci men Type: BLOOD SPECIMEN Ordering Facility: [facility] Address: [address] [place] [address] Performed By: #### 5 7021-8 #### [facility] CLIA [id number] [address] [place] [address] 44706 Hematocrit (Bld) [Volume fraction] 40.3 % Normal 36.0-46.0 [facility] Comment on above: Order Comment: Speci men Type: BLOOD SPECIMEN Ordering Facility: [facility] Address: [address] [place] [address] Performed By: #### 5 7021-8 #### [facility] CLIA [id number] [address] [place] [address] 59239 Hemoglobin (Bld) [Mass/Vol] 13.6 g/dL Normal 11.5-15.5 [facility] Comment on above: Order Comment: Speci men Type: BLOOD SPECIMEN Ordering Facility: [facility] Address: [address] [place] [address] Performed By: #### 5 7021-8 #### [facility] CLIA [id number] [address] [place] [address] 59212 Immature granulocytes (Bld) [#/Vol] 0.04 10*3/uL Normal <0.10 [facility] Comment on above: Order Comment: Speci men Type: BLOOD SPECIMEN Order[facility] Facility: [facility] Address: [address] [place] [address] Performed By: #### 5 7021-8 #### [facility] CLIA [id number] [address] [place] [address] 83072 Immature granulocytes/100 WBC (Bld) 0.6 % Normal [facility] Comment on above: Order Comment: Speci men Type: BLOOD SPECIMEN [facility] Facility[facility] Address: [address] [place] [address] Performed By: #### 5 7021-8 #### [facility] CLIA [id number] [address] [place] [address] 57252 Lymphocytes (Bld) [#/Vol] 1.67 10*3/uL Normal 1.00-4.00 [facility] Comment on above: Order Comment: Speci men Type: BLOOD SPECIMEN Ordering Facility: [facility] Address: [address] [place] [address] Performed By: #### 5 7021-8 #### [facility] CLIA [id number] [address] [place] [address] 54787 Lymphocytes/100 WBC (Bld) 26.3 % Normal [facility] Comment on above: Order Comment: Speci men Type: BLOOD SPECIMEN Ordering Facility[facility] Address: [address] [place] [address] Performed By: #### 5 7021-8 #### [facility] CLIA [id number] [address] [place] [address] 87392 MCH (RBC) [Entitic mass] 29.8 pg Normal 26.0-34.0 [facility] Comment on above: Order Comment: Speci men Type: BLOOD SPECIMEN Order[facility] Facility[facility] Address: [address] [place] [address] Performed By: #### 5 7021-8 #### [facility] CLIA [id number] [address] [place] [address] 39040 MCHC (RBC) [Mass/Vol] 33.7 g/dL Normal 30.5-36.0 [facility] Comment on above: Order Comment: Speci men Type: BLOOD SPECIMEN [facility] Address: [address] [place] [address] Performed By: #### 5 7021-8 #### [facility] CLIA [id number] [address] [place] [address] 36298 MCV (RBC) [Entitic vol] 88.2 fL Normal 80.0-100.0 [facility] Comment on above: Order Comment: Speci men Type: BLOOD SPECIMEN Ordering Facility[facility] Address: [address] [place] [address] Performed By: #### 5 7021-8 #### [facility] CLIA [id number] [address] [place] [address] 51985 Monocytes (Bld) [#/Vol] 0.63 10*3/uL Normal <0.87 [facility] Comment on above: Order Comment: Speci men Type: BLOOD SPECIMEN Ordering Facility[facility] Address: [address] [place] [address] Performed By: #### 5 7021-8 #### [facility] CLIA [id number] [address] [place] [address] 96424 Monocytes/100 WBC (Bld) 9.9 % Normal [facility] Comment on above: Order Comment: Speci men Type: BLOOD SPECIMEN Ordering Facility[facility] Address: [address] [place] [address] Performed By: #### 5 7021-8 #### [facility] CLIA [id number] [address] [place] [address] 17076 Neutrophils (Bld) [#/Vol] 3.91 10*3/uL Normal 1.45-7.50 [facility] Comment on above: Order Comment: Speci men Type: BLOOD SPECIMEN Ordering Facility[facility] Address: [address] [place] [address] Performed By: #### 5 7021-8 #### [facility] CLIA [id number] [address] [place] [address] 27394 Neutrophils/100 WBC (Bld) 61.4 % Normal [facility] Comment on above: Order Comment: Speci men Type: BLOOD SPECIMEN [facility] Address: [address] [place] [address] Performed By: #### 5 7021-8 #### [facility] CLIA [id number] [address] [place] [address] 79128 Nucleated RBC (Bld) [#/Vol] 10*3/uL Normal <0.01 [facility] Comment on above: Order Comment: Speci men Type: BLOOD SPECIMEN Ordering Facility[facility] Address: [address] [place] [address] Performed By: #### 5 7021-8 #### [facility] CLIA [id number] [address] [place] [address] 14461 Nucleated RBC/100 WBC (Bld) [Ratio] 0.0 /100 WBC Normal [facility] Comment on above: Order Comment: Speci men Type: BLOOD SPECIMEN Ordering Facility[facility] Address: [address] [place] [id number] Performed By: #### 5 7021-8 #### [facility] CLIA [id number] [address] [place] [address] 23268 Platelet mean volume (Bld) [Entitic vol] 9.9 fL Normal 9.0-12.7 [facility] Comment on above: Order Comment: Speci men Type: BLOOD SPECIMEN Order[facility] Address: [address] [place] [address] Performed By: #### 5 7021-8 #### [facility] CLIA [id number] [address] [place] [address] 78521 Platelets (Bld) [#/Vol] 290 10*3/uL Normal 150-400 [facility] Comment on above: Order Comment: Speci men Type: BLOOD SPECIMEN Order[facility] Address: [address] [place] [address] Performed By: #### 5 7021-8 #### [facility] CLIA [id number] [address] [place] [address] 70648 RBC (Bld) [#/Vol] 4.57 10*6/uL Normal 3.90-5.20 [facility] Comment on above: Order Comment: Speci men Type: BLOOD SPECIMEN [facility] Address: [address] [place] [address] Performed By: #### 5 7021-8 #### [facility] CLIA [id number] [address] [place] [address] 17182 WBC (Bld) [#/Vol] 6.36 10*3/uL Normal 3.70-11.00 [facility] Comment on above: Order Comment: Speci men Type: BLOOD SPECIMEN Order[facility] Address: [address] [place] [address] Performed By: #### 5 7021-8 #### [facility] CLIA [id number] [address] [place] [address] 32460 CNOVSPon 03-31-2024 CNOVSP Visit (SP) Office ([facility]) SHAUNA CHRISTENSEN ([id number]) 1955 F Date Time Provider Department 03/31/24 2:30 PM SUZIE PATEL During your visit today, we recorded the following information about you: Temperature Pulse Respiration Blood pressure 97.9 degrees 86/minute 16/minute 144/81 Weight Height 82.2 kg 1.596 m Suzie Patel PA-C 03/31/2024 3:02 PM Signed PATIENT NAME: Shauna Christensen DATE: 03/31/2024 PRIMARY CARE PHYSICIAN: Pedro Rodriguez DO Portions of this encounter note have been copied from my note from 08/31/2022 and has been updated where appropriate, and reflect my current medical decision making from today. CC: This is a 69 year old female initially referred for evaluation of iron deficiency anemia, seen for scheduled follow-up. INTERIM HISTORY: Shauna returns for follow up. Her last visit here was in 08/2022. She has remained on oral iron once a day since that time. She states that she feels well. Her energy is good. She denies any shortness of breath, bleeding, dizziness, restless less, pacophagia. Her last colonoscopy was negative in 2020. She reports that her PCP asked her to return to see us because she is severely iron deficient . Her last labs were from January 2024 and showed a normal hemoglobin of 13.2, WBC 7.1, Platelets 282, MCV 86, serum iron 138, TIBC of 413 and iron saturation of 33%. She has no complaints today and is tolerating oral iron well. MEDICATIONS: Current Outpatient Medications Medication Sig aspirin [...] metFORMIN (GLUCOPHAGE) 500 mg tablet MV with Iuu-Olmakkdb-Mqyerc (CENTRUM SILVER) 0.4 mg-300 mcg- 250 mcg [...] anxiety, depression, or other. PHYSICAL EXAM: BP 144/81 Pulse 86 Temp 36.6 ?C (97.9 ?F) (Temporal) Resp 16 Ht 159.6 cm (5' 2.84 ) Wt 82.2 kg (181 lb 3.5 oz) SpO2 98% BMI 32.27 kg/m? General: Alert and oriented, no distress, pleasant and cooperative. Heart: Regular, normal S1 and S2, no murmurs, rubs, or gallops Lungs: Clear to auscultation bilaterally Abdomen: Benign Extremities: Feet/ankles without edema, posterior tibial pulses full and symmetrical LABS: Hemoglobin (g (more content not included)... Normal [facility] Comprehensive metabolic 2000 panelon 03-31-2024 Albumin [Mass/Vol] 4.4 g/dL Normal 3.9-4.9 [facility] Comment on above: Order Comment: Speci men Type: BLOOD SPECIMEN [facility] Address: [address] [place] [address] Performed By: #### 2 4323-8 #### [facility] CLIA [id number] [address] [place] [address] 54931 ALP [Catalytic activity/Vol] 96 U/L Normal 34-123 [facility] Comment on above: Order Comment: Speci men Type: BLOOD SPECIMEN [facility] Address: [address] [place] [address] Performed By: #### 2 4323-8 #### [facility] CLIA [id number] [address] [place] [address] 53211 ALT [Catalytic activity/Vol] 22 U/L Normal 7-38 [facility] Comment on above: Order Comment: Speci men Type: BLOOD SPECIMEN Order[facility] Address: [address] [place] [address] Performed By: #### 2 4323-8 #### [facility] CLIA [id number] [address] [place] [address] 73767 Anion gap [Moles/Vol] 10 mmol/L Normal 8-15 [facility] Comment on above: Order Comment: Speci men Type: BLOOD SPECIMEN Ordering Facility: [facility] Address: [address] [place] [address] Performed By: #### 2 4323-8 #### [facility] CLIA [id number] [address] [place] [address]62 AST [Catalytic activity/Vol] 24 U/L Normal 13-35 [facility] Comment on above: Order Comment: Speci men Type: BLOOD SPECIMEN Ordering Facility: [facility] Address: [address] [place] [address] Performed By: #### 2 4323-8 #### [facility] CLIA [id number] [address] [place] [address] Bilirubin [Mass/Vol] 0.5 mg/dL Normal 0.2-1.3 [facility] Comment on above: Order Comment: Speci men Type: BLOOD SPECIMEN [facility]ing Facility[facility] Address: [address] [place] [address] Performed By: #### 2 4323-8 #### [facility] CLIA [id number] [address] [place] [address]26 Calcium [Mass/Vol] 9.6 mg/dL Normal 8.5-10.2 [facility] Comment on above: Order Comment: Speci men Type: BLOOD SPECIMEN [facility]ing [facility] Address: [address] [place] [address] Performed By: #### 2 4323-8 #### [facility] CLIA [id number] [address] [place] [address] 00351 Chloride [Moles/Vol] 106 mmol/L Normal 98-107 [facility] Comment on above: Order Comment: Speci men Type: BLOOD SPECIMEN [facility]ing [facility] Address: [address] [place], [place] [address] Performed By: #### 2 4323-8 #### [facility] CLIA [id number] [address] [place] [address] 12654 CO2 [Moles/Vol] 25 mmol/L Normal 22-30 [facility] Comment on above: Order Comment: Speci men Type: BLOOD SPECIMEN [facility]ing [facility] Address: [address] [place] [address] Performed By: #### 2 4323-8 #### [facility] CLIA [id number] [address] [place] [address]94 Creatinine [Mass/Vol] 1.14 mg/dL High 0.58-0.96 [facility] Comment on above: Order Comment: Dior men Type: BLOOD SPECIMEN [facility] Address: [address] [place] [address] Performed By: #### 2 4323-8 #### [facility] CLIA [id number] [address] [place] [address]20 Creatinine and Glomerular filtration rate.predicted panel (S/P/Bld) 52 mL/min/1.73m??? Low >=60 [facility] Comment on above: Order Comment: Dior rabago Type: BLOOD SPECIMEN [facility]ing [facility] Address: [address] [place] [address] Result Comment: Kristal mated Glomerular Filtration Rate [...] GFR. Performed By: #### 2 4323-8 #### [facility] CLIA [id number] [address] [place] [address] 11469 Glucose [Mass/Vol] 98 mg/dL Normal 74-99 [facility] Comment on above: Order Comment: Dior hima Type: BLOOD SPECIMEN [facility]ing [facility]: [facility] Address: [address] [place], [place] [address] Result Comment: The [place] Diabetes Association (ADA) provides guidance for cutoff [...] Standards of Medical Care in Diabetes 2016, [place] Diabetes Association. Diabetes Care. 2016.39(Suppl 1). Performed By: #### 2 4323-8 #### [facility] CLIA [id number] [address] [place] [address] 81203 Potassium [Moles/Vol] 4.4 mmol/L Normal 3.7-5.1 [facility] Comment on above: Order Comment: Speci men Type: BLOOD SPECIMEN [facility]ing [facility] Address: [address] [place] [address] Performed By: #### 2 4323-8 #### [facility] CLIA [id number] [address] [place] [address] 88195 Protein [Mass/Vol] 7.1 g/dL Normal 6.3-8.0 [facility] Comment on above: Order Comment: Speci men Type: BLOOD SPECIMEN [facility]ing [facility] Address: [address] [place] [address] Performed By: #### 2 4323-8 #### [facility] CLIA [id number] [address] [place] [address] 54886 Sodium [Moles/Vol] 141 mmol/L Normal 136-144 [facility] Comment on above: Order Comment: Speci men Type: BLOOD SPECIMEN [facility]ing [facility] Address: [address] [place] [address] Performed By: #### 2 4323-8 #### [facility] CLIA [id number] [address] [place] [address] 64047 Urea nitrogen [Mass/Vol] 20 mg/dL Normal 7-21 [facility] Comment on above: Order Comment: Speci men Type: BLOOD SPECIMEN [facility]ing [facility] Address: [address] [place] [address], [place] [address] Performed By: #### 2 4323-8 #### [facility] CLIA [id number] [address] [place] [address] Virgil 03-19-2024 CNPN Telephone (HEMASA) AMPAROSHAUNA Ambrose ([id number]) 1955 F Date Time Provider Department 03/19/24 SUZIE PATEL During your visit today, we recorded the following information about you: Emily Ta MA 03/19/2024 11:39 AM Signed Patient has an appt on 03/31/24. Would you like labs, if so place orders. Emily Ta MA Allergies As of Date: 03/19/2024 (No Known Allergies) Date Reviewed: 03/19/2024 Reviewed by: Suzie Patel, PAFrankC - Fully Assessed Reason for Visit: Lab Orders [168] Primary Visit Diagnosis:Iron deficiency anemia, unspecified iron deficiency anemia type [D50.9] Order(s):IRON AND TIBC [SQIRON] Order #: [id number] FUTURE COMPREHENSIVE METABOLIC PANEL [SQCMP] Order #: [id number] FUTURE COMPLETE BLOOD COUNT AND DIFFERENTIAL [SQCBCDIF] Order #: [id number] FUTURE FERRITIN [SQFERR] Order #: [id number] FUTURE Prescriptions as of 03/19/2024 - aspirin (ASPIR-81 ORAL) Take 81 mg [...] (GLUCOPHAGE) 500 mg tablet - MV with Vwh-Mcxetnic-Repyew (CENTRUM SILVER) 0.4 mg-300 mcg- 250 mcg tab See Admin Instructions. - oxybutynin ER (DITROPAN XL) 15 mg 24 hr Extended Rel Tab Problem List As Of Date: 03/19/2024 (None) Encounter Status:Closed by EMILY TA on 03/19/24 Normal [facility] COMPLETE BLOOD COUNTon 01-16 Erythrocyte distribution width (RBC) [Ratio] 15.4 % High 11.5-15.0 [facility] Comment on above: Performed By: #### C ABE, FEPR #### [facility] ([id number]) [address] [address] Hematocrit (Bld) [Volume fraction] 39.4 % Normal 35-47 [facility] Comment on above: Performed By: #### C ABE, FEPR #### [facility] ([id number]) [address] [address] Hemoglobin (Bld) [Mass/Vol] 13.2 g/dL Normal 11.7-15.5 [facility] Comment on above: Performed By: #### C ABE, FEPR #### [facility] ([id number]) [address] [address] MCH (RBC) [Entitic mass] 28.7 pg Normal 27-34 [facility] Comment on above: Performed By: #### C ABE, FEPR #### [facility] ([id number]) [address] [address] MCHC (RBC) [Mass/Vol] 33.5 g/dL Normal 32-36 [facility] Comment on above: Performed By: #### C ABE, FEPR #### [facility] ([id number]) [address] [place] [address] MCV (RBC) [Entitic vol] 86 fL Normal 80-100 [facility] Comment on above: Performed By: #### C ABE, FEPR #### [facility] ([id number]) [address] [place] [address] Platelet mean volume (Bld) [Entitic vol] 8.8 fL Normal 7-12 [facility] Comment on above: Performed By: #### C ABE, FEPR #### [facility] ([id number]) [address] [place] [address] Platelets (Bld) [#/Vol] 282 10*3/uL Normal 150-450 [facility] Comment on above: Performed By: #### C ABE, FEPR #### [facility] ([id number]) [address] [place] [address] RBC COUNT 4.60 X10E12/L Normal 3.80-5.20 [facility] Comment on above: Performed By: #### Rubi FISH, FEPR #### [facility] ([id number]) [address] [address] [place] [address] WBC (Bld) [#/Vol] 7.1 10*3/uL Normal 4.0-11.0 [facility] Comment on above: Performed By: #### C ABE, FEPR #### [facility] ([id number]) [address] [place] [address] IRON PROFILEon 01-17-2024 Iron [Mass/Vol] 138 ug/dL Normal 50-170 [facility] Comment on above: Performed By: #### Rubi FISH, FEPR #### [facility] ([id number]) [address] [place] [address] IRON BINDING 413 ug/dL Normal 250-425 [facility] Comment on above: Performed By: #### C BC, FEPR #### [facility] ([id number]) [address] [place] [address] IRON SATURATION 33 % SATURATION Normal 15-50 [facility] Comment on above: Performed By: #### C BC, FEPR #### [facility] ([id number]) [address], [facility] [address] [place] [address] COMPLETE BLOOD COUNTon 10-09 Erythrocyte distribution width (RBC) [Ratio] 15.3 % High 11.5-15.0 [facility] Comment on above: Performed By: #### F EPR, CBC, HA1C #### [facility] ([id number]) [address] [facility] [address] [place] [address] Hematocrit (Bld) [Volume fraction] 35.7 % Normal 35-47 [facility] Comment on above: Performed By: #### F EPR, CBC, HA1C #### [facility] ([id number]) [address], [facility] [address] [place] [address] Hemoglobin (Bld) [Mass/Vol] 11.9 g/dL Normal 11.7-15.5 [facility] Comment on above: Performed By: #### F EPR, CBC, HA1C #### [facility] ([id number]) [address] [place] [address] MCH (RBC) [Entitic mass] 28.4 pg Normal 27-34 [facility] Comment on above: Performed By: #### F EPR, CBC, HA1C #### [facility] ([id number]) [address] [address] [place] [address] MCHC (RBC) [Mass/Vol] 33.3 g/dL Normal 32-36 [facility] Comment on above: Performed By: #### F EPR, CBC, HA1C #### [facility] ([id number]) [address] [place] [address] MCV (RBC) [Entitic vol] 85 fL Normal 80-100 [facility] Comment on above: Performed By: #### F EPR, CBC, HA1C #### [facility] ([id number]) [address] [place] [address] Platelet mean volume (Bld) [Entitic vol] 8.8 fL Normal 7-12 [facility] Comment on above: Performed By: #### F EPR, CBC, HA1C #### [facility] ([id number]) [address] [place] [address] Platelets (Bld) [#/Vol] 312 10*3/uL Normal 150-450 [facility] Comment on above: Performed By: #### F EPR, CBC, HA1C #### [facility] ([id number]) [address] [place] [address] RBC COUNT 4.20 X10E12/L Normal 3.80-5.20 [facility] Comment on above: Performed By: #### F EPR, CBC, HA1C #### [facility] ([id number]) [address] [address] [place] [address] WBC (Bld) [#/Vol] 5.0 10*3/uL Normal 4.0-11.0 [facility] Comment on above: Performed By: #### F EPR, CBC, HA1C #### [facility] ([id number]) [address] [place] [address] COMPREHENSIVE METABOLIC PANE [place] 10-10-2023 Albumin [Mass/Vol] 4.0 g/dL Normal 3.2-5.3 [facility] Comment on above: Performed By: #### C , 58056-8 #### [facility] ([id number]) [address] [place] [address] ALP [Catalytic activity/Vol] 85 U/L Normal 39-130 [facility] Comment on above: Performed By: #### Rubi IBRAHIM, 71506-9 #### [facility] ([id number]) [address] [place] [address] ALT [Catalytic activity/Vol] 20 U/L Normal 0-31 [facility] Comment on above: Performed By: #### Rubi IBRAHIM, 87220-9 #### [facility] ([id number]) [address] [place] [address] Anion gap [Moles/Vol] 9 mmol/L Normal 5-15 [facility] Comment on above: Performed By: #### Rubi IBRAHIM 31922-4 #### [facility] ([id number]) [address] [place] [address] AST [Catalytic activity/Vol] 24 U/L Normal 0-41 [facility] Comment on above: Performed By: #### Rubi IBRAHIM, 44994-2 #### [facility] ([id number]) [address] [place] [address] Bilirubin [Mass/Vol] 0.6 mg/dL Normal 0.3-1.2 [facility] Comment on above: Performed By: #### Rubi IBRAHIM 53303-4 #### [facility] ([id number]) [address] [place] [address] Calcium [Mass/Vol] 9.4 mg/dL Normal 8.5-10.5 [facility] Comment on above: Performed By: #### Rubi IBRAHIM 14537-7 #### [facility] ([id number]) [address] [place] [address] Chloride [Moles/Vol] 107 mmol/L Normal 98-109 [facility] Comment on above: Performed By: #### Sherif Venegas MP31-1 #### [facility] ([id number]) [address] [place] [address] CO2 [Moles/Vol] 27 mmol/L Normal 22-32 [facility] Comment on above: Performed By: #### Rubi IBRAHIM, 79860-5 #### [facility] ([id number]) [address] [place] [address] Creatinine [Mass/Vol] 0.80 mg/dL Normal 0.40-1.00 [facility] Comment on above: Result Comment: METH OD TRACEABLE TO IDMS STANDARD Performed By: #### Rubi IBRAHIM, 97511-5 #### [facility] ([id number]) [address] [place] [address] GFR/1.73 sq M.predicted among non-blacks MDRD (S/P/Bld) [Vol rate/Area] 80 mL/min/{1.73_m2} Normal >59 [facility] Comment on above: Result Comment: Reported eGFR is based on the CKD-EPI 2020 equation that does not use a race coefficient. Performed By: #### Rubi IBRAHIM, 37719-1 #### [facility] ([id number]) [address] [place] [address] Glucose [Mass/Vol] 86 mg/dL Normal 65-99 [facility] Comment on above: Performed By: #### Rubi IBRAHIM, 88265-1 #### [facility] ([id number]) [address] [place] [address] Potassium [Moles/Vol] 4.2 mmol/L Normal 3.5-5.0 [facility] Comment on above: Performed By: #### Rubi IBRAHIM, 87443-6 #### [facility] ([id number]) [address] [place] [address] Protein [Mass/Vol] 6.8 g/dL Normal 6.0-8.0 [facility] Comment on above: Performed By: #### C PATRICE, 60071-6 #### [facility] ([id number]) [address] [place] [address] Sodium [Moles/Vol] 143 mmol/L Normal 134-146 [facility] Comment on above: Performed By: #### C PATRICE, 77192-7 #### [facility] ([id number]) [address] [place] [address] Urea nitrogen [Mass/Vol] 17 mg/dL Normal 5-27 [facility] Comment on above: Performed By: #### Rubi IBRAHIM, 49378-8 #### [facility] ([id number]) [address] [place] [address] HGB A1C (GLYCO-HGB)on 2023 Glucose [Mass/Vol] 105 mg/dL Normal [facility] Comment on above: Performed By: #### F EPR, CBC, HA1C #### [facility] ([id number]) [address], [facility] [address] [place] [address] HbA1c (Bld) [Mass fraction] 5.3 % Normal 4.4-5.6 [facility] Comment on above: Result Comment: NOTE ADA Guidelines Result HgbA1c Normal : less than 5.7 % Prediabetes : 5.7 % to 6.4 % Diabetes : > 6.4 % Use with caution in patients with abnormal hemoglobin variants as the half-life of red blood cells and in vivo glycation rates are affected. Performed By: #### F EPR, CBC, HA1C #### [facility] ([id number]) [address] [place] [address] IRON PROFILEon 10-10-2023 Iron [Mass/Vol] 27 ug/dL Low 50-170 [facility] Comment on above: Performed By: #### F EPR, CBC, HA1C #### [facility] ([id number]) [address] [place] [address] IRON BINDING 395 ug/dL Normal 250-425 [facility] Comment on above: Performed By: #### F EPR, CBC, HA1C #### [facility] ([id number]) [address] [place] [address] IRON SATURATION 7 % SATURATION Low 15-50 [facility] Comment on above: Performed By: #### F EPR, CBC, HA1C #### [facility] ([id number]) [address] [place] [address] Lipid 1996 panelon 4 Cholesterol [Mass/Vol] 129 mg/dL Low 150-200 [facility] Comment on above: Performed By: #### C PATRICE, 64776-9 #### [facility] ([id number]) [address] [place] [address] Cholesterol in HDL [Mass/Vol] 50 mg/dL Normal >39 [facility] Comment on above: Result Comment: HDL <40 mg/dL - High Risk HDL > or = 40mg/dL- Desirable HDL >60 mg/dL - Negative Risk Performed By: #### C PATRICE, 88082-5 #### [facility] ([id number]) [address] [place] [address] Cholesterol in LDL [Mass/Vol] 55 mg/dL Normal <130 [facility] Comment on above: Result Comment: LDL <100 mg/dL - Desirable LDL >160 mg/dL - High Risk Performed By: #### Rubi IBRAHIM, 75585-6 #### [facility] ([id number]) [address] [place] [address] Cholesterol in VLDL [Mass/Vol] 24 mg/dL Normal 0-30 [facility] Comment on above: Performed By: #### Rubi IBRAHIM, 20468-4 #### [facility] ([id number]) [address] [place] [address] CHOLESTEROL:HDL 2.6 Normal 1.0-5.0 [facility] Comment on above: Performed By: #### Rubi IBRAHIM, 55735-7 #### [facility] ([id number]) [address] [place] [address] Triglyceride [Mass/Vol] 122 mg/dL Normal 27-150 [facility] Comment on above: Performed By: #### Rubi IBRAHIM, 24625-6 #### [facility] ([id number]) [address] [place] [address] BASIC METABOLIC PANLon 07-17 Anion gap [Moles/Vol] 7 mmol/L Normal 5-15 [facility] Comment on above: Performed By: #### 2 692-2, BMP #### [facility] ([id number]) [address] [place] [address] Calcium [Mass/Vol] 9.4 mg/dL Normal 8.5-10.5 [facility] Comment on above: Performed By: #### 2 692-2, BMP #### [facility] ([id number]) [address] [place] [address] Chloride [Moles/Vol] 108 mmol/L Normal 98-109 [facility] Comment on above: Performed By: #### 2 692-2, BMP #### [facility] ([id number]) [address] [place] [address] CO2 [Moles/Vol] 29 mmol/L Normal 22-32 [facility] Comment on above: Performed By: #### 2 692-2, BMP #### [facility] ([id number]) [address] [place] [address] Creatinine [Mass/Vol] 0.75 mg/dL Normal 0.40-1.00 [facility] Comment on above: Result Comment: METH OD TRACEABLE TO IDMS STANDARD Performed By: #### 2 692-2, BMP #### [facility] ([id number]) [address] [place] [address] GFR/1.73 sq M.predicted among non-blacks MDRD (S/P/Bld) [Vol rate/Area] 86 mL/min/{1.73_m2} Normal >59 [facility] Comment on above: Result Comment: Reported eGFR is based on the CKD-EPI 2020 equation that does not use a race coefficient. Performed By: #### 2 692-2, BMP #### [facility] ([id number]) [address] [place] [address] Glucose [Mass/Vol] 81 mg/dL Normal 65-99 [facility] Comment on above: Performed By: #### 2 692-2, BMP #### [facility] ([id number]) [address] [place] [address] Potassium [Moles/Vol] 4.0 mmol/L Normal 3.5-5.0 [facility] Comment on above: Performed By: #### 2 692-2, BMP #### [facility] ([id number]) [address] [place] [address] Sodium [Moles/Vol] 144 mmol/L Normal 134-146 [facility] Comment on above: Performed By: #### 2 692-2, BMP #### [facility] ([id number]) [address] [place] [address] Urea nitrogen [Mass/Vol] 26 mg/dL Normal 5-27 [facility] Comment on above: Performed By: #### 2 692-2, BMP #### [facility] ([id number]) [address] [place] [address] Osmolality (U) [Osmolality]o n 07-17-2023 URINE OSMOLALITY 806 mOsm/kg H2 Normal 300-1300 [facility] Comment on above: Performed By: #### 2 695-5 #### [facility] ([id number]) [address] [place] [address] Osmolality [Osmolality]on OSMOLALITY 304 mOsm/kg H2 High 280-300 [facility] Comment on above: Performed By: #### 2 692-2, BMP #### [facility] ([id number]) [address] [place] [address] URINALYSISon 07-17-2023 Bilirubin Ql (U) Negative Normal NEG [facility] BLOOD/HGB Negative Normal NEG [facility] CA OXALATE CRYSTALS PRESENT Abnormal NONE [facility] Color (U) YELLOW Normal YELLOW [facility] Glucose Ql (U) Negative Normal NEG [facility] Ketones Ql (U) Negative Normal NEG [facility] Leukocyte esterase Test strip Ql (U) Negative Normal NEG [facility] MUCOUS PRESENT Abnormal NONE [facility] Nitrite Ql (U) Negative Normal NEG [facility] pH (U) 6.0 [pH] Normal 5.0-8.5 [facility] Protein Ql (U) Trace Abnormal NEG [facility] R.B.CELLS 0 /hpf Normal 0-5 [facility] Specific gravity (U) [Rel density] 1.024 Normal 1.003-1.035 [facility] SQUAMOUS EPITHELIUM 1 /hpf Normal 0-5 [facility] TURBIDITY CLEAR Normal CLEAR [facility] Urobilinogen (U) [Mass/Vol] mg/dL Normal <1.1 [facility] W.B.CELLS 4 /hpf Normal 0-5 [facility] Urinalysis - AUTOMATEDon Appearance (U) cloudy [employer] Other Bilirubin Ql (U) Negative Mass [employer] Other Color (U) dark yellow [employer] Other Glucose Ql (U) Negative [employer] Other Hemoglobin Ql (U) large [employer] Other Ketones Ql (U) Negative [employer] Other Leukocyte esterase Test strip Ql (U) small [employer] Other Nitrite Ql (U) Negative [employer] Other pH (U) 6.5 [pH] [employer] Other Protein Ql (U) 100 [employer] Other Specific gravity (U) [Rel density] 1.025 [employer] Other Urobilinogen (U) [Mass/Vol] 0.2 mg/dL [employer] Other Urinalysis - AUTOMATED [employer] Other Urine Cultureon 04-25-2023 Urine Culture 50,000 [employer] Other Urine Culture <16 Susceptible [employer] Other Urine Culture <8/4 Susceptible [employer] Other Urine Culture <8 Susceptible [employer] Other Urine Culture <4 Susceptible [employer] Other Urine Culture <2 Susceptible [employer] Other Urine Culture <1 Susceptible [employer] Other Urine Culture <0.25 Susceptible [employer] Other Urine Culture <0.5 Susceptible [employer] Other Urine Culture <0.5/9.5 Susceptible [employer] Other Bacteria identified Cx Nom (U) Reason for Exam Dysuria Urine ORGANISM: Proteus mirabilis (O:PROMIR) [place] Count 50,000 Aerobic ANTONELLA Charge (NMIC56) --- [...] RESISTANT TO ALL B-LACTAM DRUGS. PERFORMED BY: [place] [id number] PATHOLOGIST MARKETING ANALYT[employer] ANALYST CHAO ARELLANO M.D. Normal [facility] Comment on above: Performed By: #### C UU #### [place] [id number] [facility] CBC AUTO DIFFon 10-11-2022 BASO # 0.0 103/ul Normal 0.0-0.1 [facility] Comment on above: Performed By: #### C BC #### [facility] [address] [address] [address] Odilia Ceron Basophils/100 WBC (Bld) 0.4 % Normal 0.2-2.0 [facility] Comment on above: Performed By: #### C BC #### [facility] [address] [place] [address] Dr. Odilia Ceron EO # 0.1 103/ul Normal 0.0-0.7 [facility] Comment on above: Performed By: #### C BC #### [facility] [address] [address] [address] Odilia Ceron Eosinophils/100 WBC (Bld) 2.1 % Normal 0.9-7.0 [facility] Comment on above: Performed By: #### C BC #### [facility] [address] [place] [address] Dr. Odilia Ceron Erythrocyte distribution width (RBC) [Ratio] 15.3 % Critically high 11.0-15.0 [facility] Comment on above: Performed By: #### C BC #### [facility] [address] [place] [address] Dr. Odilia Ceron Hematocrit (Bld) [Volume fraction] 40.8 % Normal 36.0-48.0 [facility] Comment on above: Performed By: #### C BC #### [facility] [address] [place] [address] Dr. Odilia Ceron Hemoglobin (Bld) [Mass/Vol] 12.9 g/dL Normal 12.0-16.0 [facility] Comment on above: Performed By: #### C BC #### [facility] [address] [place] [address] Dr. Odilia Ceron IG # 0.02 10e3/ul Normal 0.00-0.03 [facility] Comment on above: Performed By: #### C BC #### [facility] [address] [place] [address] Dr. Odilia Ceron IG % 0.4 % Normal 0.0-0.5 [facility] Comment on above: Performed By: #### C BC #### [facility] [address] [place] [address] Dr. Odilia Ceron LYMPH # 1.8 103/ul Normal 1.2-3.8 [facility] Comment on above: Performed By: #### C BC #### [facility] [address] [place] [address] Dr. Odilia Ceron Lymphocytes/100 WBC (Bld) 38.1 % Normal 20.5-60.0 [facility] Comment on above: Performed By: #### C BC #### [facility] [address] [place] [address] Dr. Odilia Ceron MANUAL DIFF REQ NO Normal [facility] Comment on above: Performed By: #### C BC #### [facility] [address] [place] [address] Dr. Odilia Ceron MCH (RBC) [Entitic mass] 28.0 pg Normal 26.7-34.0 [facility] Comment on above: Performed By: #### C BC #### [facility] [address] [place] [address] Dr. Odilia Ceron MCHC (RBC) [Mass/Vol] 31.6 g/dL Normal 29.9-35.2 [facility] Comment on above: Performed By: #### C BC #### [facility] [address] [place] [address] Dr. Odilia Ceron MCV (RBC) [Entitic vol] 88.5 fL Normal 81.0-99.0 [facility] Comment on above: Performed By: #### C BC #### [facility] [address] [place] [address] Dr. Odilia Ceron MONO # 0.5 103/ul Normal 0.3-0.8 [facility] Comment on above: Performed By: #### C BC #### [facility] [address] [place] [address] Dr. Odilia Ceron Monocytes/100 WBC (Bld) 10.4 % Normal 1.7-12.0 [facility] Comment on above: Performed By: #### C BC #### [facility] [address] [place] [address] Dr. Odilia Ceron NEUT # 2.3 103/ul Normal 1.4-6.5 [facility] Comment on above: Performed By: #### C BC #### [facility] [address] [place] [address] Dr. Odilia Ceron Neutrophils/100 WBC (Bld) 48.6 % Normal 43.0-75.0 [facility] Comment on above: Performed By: #### C BC #### [facility] [address] [place] [address] Dr. Odilia Ceron Platelet mean volume (Bld) [Entitic vol] 10.1 fL Normal 9.5-13.5 [facility] Comment on above: Performed By: #### C BC #### [facility] [address] [place] [address] Dr. Odilia Ceron PLT 298 103/ul Normal 150-450 [facility] Comment on above: Performed By: #### C BC #### [facility] [address] [place] [address] Dr. Odilia Ceron RBC 4.61 106/ul Normal 4.20-5.40 [facility] Comment on above: Performed By: #### C BC #### [facility] [address] [place] [address] Dr. Odilia Ceron WBC 4.8 103/ul Normal 4.0-11.0 [facility] Comment on above: Performed By: #### C BC #### [facility] [address] [place] [address] Dr. Odilia Ceron FERRITINon 10-11-2022 Ferritin [Mass/Vol] 21.0 ng/mL Normal 8.0-252.0 [facility] Comment on above: Performed By: #### F ERR, FETIBC ####[facility] [address] [place] [id number]. Odilia Ceron IRON AND TIBCon 10-11-2022 % SATURATION 14.5 % Normal [facility] Comment on above: Performed By: #### F ERR, FETIBC ####[facility] [address] [place] [id number]. Odilia Ceron Iron [Mass/Vol] 51.0 ug/dL Normal 50.0-170.0 [facility] Comment on above: Performed By: #### F ERR, FETIBC ####[facility] [address] [place] [id number]. Odilia Ceron TIBC DIRECT 351.0 ug/dL Normal 250.0-450.0 [facility] Comment on above: Performed By: #### F ERR, FETIBC ####[facility] [address] [place] [id number]. Odilia Ceron Urinalysis - AUTOMATEDon Appearance (U) dark [employer] Other Bilirubin Ql (U) Negative Mass [employer] Other Color (U) year [employer] Other Glucose Ql (U) Negative [employer] Other Hemoglobin Ql (U) large [employer] Other Ketones Ql (U) Negative [employer] Other Leukocyte esterase Test strip Ql (U) large [employer] Other Nitrite Ql (U) Negative [employer] Other pH (U) 6.5 [pH] [employer] Other Protein Ql (U) >=300 mg/DL [employer] Other Specific gravity (U) [Rel density] 1.030 [employer] Other Urobilinogen (U) [Mass/Vol] 0.2 mg/dL [employer] Other Urinalysis - AUTOMATED [employer] Other Urine Cultureon 10-04-2022 Bacteria identified Cx Nom (U) 40,000 colonies/ml mixed bacterial skin contaminants 2 Days PERFORMED BY: [place] [address] PATHOLOGIST MARKETING ANALYTICS ANALYST CHAO ARELLANO M.D. [facility] Comment on above: Performed By: #### C UU #### [address] Bacteria identified Cx Nom (U) [employer] Other Comprehensive metabolic 2000 panelon 08-31-2022 Albumin [Mass/Vol] 4.4 g/dL 3.9 - 4.9 g/dL [facility] ALP [Catalytic activity/Vol] 99 U/L 34 - 123 U/L [facility] ALT [Catalytic activity/Vol] 20 U/L 7 - 38 U/L [facility] Anion gap [Moles/Vol] 9 mmol/L 9 - 18 mmol/L [facility] AST [Catalytic activity/Vol] 23 U/L 13 - 35 U/L [facility] Bilirubin [Mass/Vol] 0.4 mg/dL 0.2 - 1.3 mg/dL [facility] Calcium [Mass/Vol] 9.9 mg/dL 8.5 - 10. 2 mg/dL [facility] Chloride [Moles/Vol] 103 mmol/L 97 - 105 mmol/L [facility] CO2 [Moles/Vol] 28 mmol/L 22 - 30 mmol/L [facility] Creatinine [Mass/Vol] 0.95 mg/dL 0.58 - 0.96 mg/dL [facility] Estimated Glomerular Filtration Rate 65 mL/min/1.73m >=60 mL/min/1.73m [facility] Glucose [Mass/Vol] 132 mg/dL High 74 - 99 mg/dL [facility] Potassium [Moles/Vol] 4.6 mmol/L 3.7 - 5.1 mmol/L [facility] Protein [Mass/Vol] 7.2 g/dL 6.3 - 8.0 g/dL [facility] Sodium [Moles/Vol] 140 mmol/L 136 - 144 mmol/L [facility] Urea nitrogen [Mass/Vol] 16 mg/dL 7 - 21 mg/dL [facility] Physical Therapy Noteon 08-02 Physical Therapy Note [id number]#1.0 [facility] CBC W Auto Differential pane l (Bld)on 06-22-2022 Basophils (Bld) [#/Vol] 0.03 10*3/uL <0.11 k/uL [facility] Basophils/100 WBC (Bld) 0.4 % [facility] Differential cell count method Nom (Bld) Auto [facility] Eosinophils (Bld) [#/Vol] 0.12 10*3/uL <0.46 k/uL [facility] Eosinophils/100 WBC (Bld) 1.7 % [facility] Erythrocyte distribution width (RBC) [Ratio] 16.6 % High 11.5 - 15.0 % [facility] Hematocrit (Bld) [Volume fraction] 35.3 % Low 36.0 - 46.0 % [facility] Hemoglobin (Bld) [Mass/Vol] 11.2 g/dL Low 11.5 - 15.5 g/dL [facility] Immature granulocytes (Bld) [#/Vol] <0.10 k/uL [facility] Immature granulocytes/100 WBC (Bld) 0.3 % [facility] Lymphocytes (Bld) [#/Vol] 3.03 10*3/uL 1.00 - 4.00 k/uL [facility] Lymphocytes/100 WBC (Bld) 42.6 % [facility] MCH (RBC) [Entitic mass] 26.8 pg 26.0 - 34.0 pg [facility] MCHC (RBC) [Mass/Vol] 31.7 g/dL 30.5 - 36.0 g/dL [facility] MCV (RBC) [Entitic vol] 84.4 fL 80.0 - 100.0 fL [facility] Monocytes (Bld) [#/Vol] 0.75 10*3/uL <0.87 k/uL [facility] Monocytes/100 WBC (Bld) 10.5 % [facility] Neutrophils (Bld) [#/Vol] 3.16 10*3/uL 1.45 - 7.50 k/uL [facility] Neutrophils/100 WBC (Bld) 44.5 % [facility] Nucleated RBC (Bld) [#/Vol] <0.01 k/uL [facility] Nucle[facility] RBC/100 WBC (Bld) [Ratio] 0.0 /100 WBC [facility] Platelet mean volume (Bld) [Entitic vol] 9.5 fL 9.0 - 12.7 fL [facility] Platelets (Bld) [#/Vol] 286 10*3/uL 150 - 400 k/uL [facility] RBC (Bld) [#/Vol] 4.18 10*6/uL 3.90 - 5.2 0 m/uL [facility] WBC (Bld) [#/Vol] 7.11 10*3/uL 3.70 - 11. 00 k/uL [facility] RETIC COUNTon 06-22-2022 Reticulocytes (Bld) [#/Vol] 0.06427 10*3/uL 0.018 - 0.100 M/uL [facility] Reticulocytes (Bld) [#/Vol]o n 06-22-2022 Reticulocytes/100 RBC (Bld) 1.7 % 0.4 - 2.0 % [facility] Provider Orderson 06-21-2022 Provider Orders [id number]#1.0 0[facility] Coding Summaryon 06-20-2022 Coding Summary HTMLBase 64 GolkvdzxIKq1gEf+PGhlYW Q+PJ3YJQXcU85poTFplI5B A4sKPV2GYLXAXESUDF4NCF 8ihMA0TIpgQ1RpxlRd DfarhVKfDK49QXj8TFP5fS omAZuzkT9bsGDaW4i2CsEx KC13dI65CMlkPRKnDyY4We ZpbjsgbWFy H2lrWcQrxCWeYir+PHRhYm xlIHdpZHRoPScxMDAlJyBz cFazMK7yZx4yDGRiRIFfbL xhcHNlOiBj f2cdWBGpMVbwLR7mdZgxD8 SmmJS0ISTdp0b8Mh17mXM+ VKZzWAK7iMhhKSbtw552Sb Ahc4pyXLS1 jNXzLSrwMFZ6D29ui7N9CA GzSWAuCGB0wBX3pL9vwLok bxzlB8SbpAMyWoO7QTU8vJ LkaS5jgLqy vbipbF8vIki+L07ARZ9BRW JKMM6CWps7N0ArWlaehQV+ TW06LTMtUE42cVQazZTyi4 kzgIg7VbCy LPVrTUN7oBevSMkie8FxLH BtE12vwDTfq4D2RRFaxStp pUHpKbWsoLN6xP3nGFdras fis6ddmzro Zdbas3gkjh06hE68I06aHK udJHKdGLA5QNQsSOFbsUgp qd6yoC6vYl2+RQghl2rnr8 jbmFq8CjCr HNBeigOyqChgXTR5s6XoXg 28E9XvkSctp5PuWzx6aw99 tBYnu2X8nJY7MJmqOAOdyE 7oUCbxYfU9 ZYYwAwGzdH91gSPxXZorEt 2vgUsyuYewAU4cCAScnbgr TBIkwL8lNXAeoQDtpCruAN 4wNTBpbjtm q800DwAzAZG2RYShlEGiE2 BzjB3fBxGyRHWzHQZkM9By bDZkVZajW608HUjxUiV9XG YqheQdC1Pd SEEcaIhvMvA8c6P4Xz5Jr1 ZlntelUFX3TActMBXoOsJ0 WtRyEqW6W5FaQlz6JJFqnR mgTY4sM1Bd GQHevmdsqfcntRT5FHVxCF NkoG66tORlQHjbCf5wu3I1 b726MKSoBZLjrD24So8tlT ogMTBwdCBU aX6ztpaaw6tcwexpLmElYA GxCPx2ROh1ICQvxLcgXuAb UGH4YlZ5SUR6jKWifL9feF oaohhvaS2r Oyc+Y11vkR5fPQT1FKC2nq atNUIrwrBfLW43YG84F5Zh PjwvdGFibGU+PGRpdiBzdH gaQS2qLbKw k8ukz7ObWUbjQ2FeBNSdEK yqLzv0AKAcYWD8cCR7mC7k SRJySEqsl7G0cEC8S6Esxi Thaa9ad6rx RUTxTHynI55vdQTxf0M6WO FjwUL7HNHepCohOoXdxN35 Oyc+IHRvcKtkz5QuWdoki4 puv6dnqPz8 XwAvRUZieiRqsIqzBDN7y4 SmOh12B52gDWejTVAvDZQy ERHqJZFlgEeorx0ypH1rFj 8+PGNvbCB3 fFK1zN9bPSObNmP7SYmzK0 85DfKqpYImEiqdo4rjh4ul dTp7CwBtNEGyppTbdWqbXO Y7t6LcSm31 P56eEQohGGQfDSIjJXPtQG KlaUcghe5zkE8kMb3+PC9j v2ixqv58pV89tGY+PHRkIH U0iPnxUBxn JWWqwD3yZKiiMaS8FNVtDk NwsI23rSLaPGpnNx8doZxp sYkxYB6fXTFnfccwp939Sl Sjm6iqJDOq xKWqIJafXBW7W49zb2Z1NH AjGHGwUGC2lVY4kQ0osGzh bjogbGVmdDsgdmVydGljYW umVLngO260 IHRvcDsnPlBhdGllbnQgTm ToXGk3H3CyVce2LRQqpWzp LM5oaIVxSQeqZr9aoYrltH gnJR7pOKHy bjmsw255AqQtr1pyMNSpnR FsAOvxXJV2L24hl9Y1XOKm XFKwDLM1vII2aK9nqSxrbv ogbGVmdDsg doTbaPrmWMqbLXphM080ZD RvcDsnPkJpcnRoIERhdGU6 ME92DA35sYTyq3Z8xEE9C9 BhZGRpbmct zbjheBK7JBHjWDFdnB92Ww 1omUhaIr5zDRTrULU5JRNm ePNgG8GsuX6mHqVrOOLcGE GfB7SviKLx JLcvC650TUxhLjL0KLHcoh VwS0WlKNLpeOmeJgU2a8K8 Qb0SS1L9UJ85TV12xZXwg8 Y3zSZ2Q0Tu LFKfbxdzdvmxhOT4FZElMV WluO02Md7amOdmNi6hFFRz YET3DFFxiMIxY0PusE6wMo AjMDAwMDAw T0DcdGLuJWxlT080MAptXh Z2GQUkabIyT4HzBQPvqYzp HsP1a2W0Gf0DGIu8PT07GH 38qSZhg9N3 mAT1S9WjHGInslsfbjspdR Y4MAEaKVPasK49Jp3jjZdw Xo6kFDZcWTZ5CNCebEVuW0 LpiO2nGvBq HSVoQKXtJ8TdaFYrRIdwN7 22LQutEsE1TFBiosLbG9Eu PRZowBwfTfE9b3Y1Hj7ZLR IaIT01VIC2 cDE4UW92CV70E0CbPuvrcQ FibGU+PHRhYmxlIHdpZHRo KIovNKAdGwMksWfaVI5dTf 9yZGVyLWNv yWkdyJAbNeMfo9dpWAMaMI gdOA4jdJxvU4ZtkNR2QDKr u9q0Gq97L51nG2DggHC+PG WryWT8iXT1 xS9jYkZkDaS8WPvbW068Hr RacWLmCnhhi7llh8rhdJd8 YjX3OONuaoJsgCneFFA2c1 AlMm66V97p IHdpZHRoPSIxNSUiIHZhbG ecpu3vwD8fFw0+PGNvbCB3 pZC5zF2sMjXlDsZ2AOatJ8 49InRvcCIv Ouwvx5lxu1obmWx8IzJqAQ GnskIhiKvhNDO4p4VmPi93 W6ShtQdzj4GuGzt2cr93aF Mdq8G7vPE4 L0PqKWYbkhbnxJAewBbvRD 5bRLJqgnceDVPfyS1fDPOi Z9c1AkOeGtE6CJlqA0Ujhg J1DQQriVUw OWinRWI7N14sr8X9RWUqSP DdZYP9gDM7oC7ilMseuxvv bGVmdDsgdmVydGljYWwtYW njI287PHBp sJooFAFuqM5oURUoaFXzzZ fjPA0hYYLfwgljKzGGGi4O IHxqPQHWTjNbQ4ISKJ16CA 01lLHaz8S0 ySO0K1HkDLJnjspvsceulF I3EVEnHOHnnH54wWIoROak Uw0ha6B7j624ITToSBOolS 51Jq0ijNly GMWsfQICeT3syrkot3bakx sdAkMgEADmFAj2DQn1QBCi pLhaOdZgCPJ4MyW0RPX0oQ OttI1ivJsj ynyfyI0fEcx+MDkvMDEvMT e7LCwutUO+HMYtOFM3vNkb IKzzJTTfnK4eXGVfT8e3Kc PoGkO5ARmk W1MiEZHqchpxRs60hO9kMq QwKcE6IWjkV0HymmY4ZZVl xVChWQqqPCR6N74mc2K3QT MwMDAwMDA7 gNF7wU1wsYxrkznfdOIxxG zgmbBbqAgvDAxaRGyyF787 UIAcbZjcOrA4FUdrIYDuCF 17LD09wPWy r5A6bFS6J3ViSOWdfcowyn bkyHM2ILVbLWDtzK57wWAp VOvsSf3oe4Y8u487GPQvSN YlvJ22Yh8w oRrbKVRgtRQMuW4pfqcpb5 rqqejpNpPcBIJdGJz4XQc9 OXGjaMqlAnUlPAF2ScT0VO L4mFPzzT0n uClwpkufjP7vYzd+RkVNQU kVFW54VS63aDSzh0D8mSJ6 E7SqNEVflbdkvjvugDK1VC CmOYZshN01 zANlPReiAo8su0E2t039FZ ZcVSNkfF82No5njRmtBNFl eNIQmU8tpvvww1pplimnHf AwMDAwMDt0 YRa8QTLxsPitJaKxKDU6Ye R9ZFS2dPSbhD3mlSkxlfyj qI4qKou+EkFqeRYshI8jVK 91dHBhdGll kgH2K1BiDrtfoYS+PC90YW AnVY05eOJtvYXoo2mbvQr0 YmPpJCAiOLZ8uFxmQGhdm5 SpGZIrT01v hUXcn0N3BYLbdSgnzGZnLe ToeRO6sL6kPViygcdln7yx lvoeHpcde7dduq52fH45Y4 9sIHdpZHRo BNGrPDLyQETrpWzncf6dzR 9wIi8+EDQwbZI0kJM1uO4z GkVeUiL7TGcfI959WcNgaG CyNgzex7os m5svzBs0RdNaUPOsywEpwW tjRDH2p5FtUp10M76xDMak ZHRoPSIyMCUiIHZhbGlnbj 4hwG1gJg1+ HX3lm3wuve29zD30fKV+PH AuQNN3nGjzXTupRWQeeV5g IBqlBdE6AVRfJkZxdJ50aE KqJMczEo3c yHfqtHuzUP9hKDMrzujcl8 07XvVpk9zcRBNvcVKhGUzq XVI4N45by6Y4KMLeXBZpCQ C6cMW2fR7s bGlnbjogbGVmdDsgdmVydG zgRMkxIIqpX465EJTupJkb IrPolJVkT5khanZEAC7gUk wvdGQ+PHRk FUT8aLbiFAjrRLPzfV7xOL LmK9t1ZaIdTtU2ONwvL6Te wjC5NWIpwSUaPZZeiEAVoC 7wbyfhc0wt dcadBnTtHPShFOw8XRk3BM GkmAjeLbShJVB0TaL2HXI2 rDLflZ0rcBzcawspjZ6uGd c+RklOOjwv dGQ+GYBjQUL1lXctGAonTP DuxZ2nHYOyI2m1RhSjDvX6 KMdlG6EqegD8IDCkjHFgMM BzmXOHnP5o iehdf2mkqefuQjTsHEYrNA r6JXe9LLEaaIwcVgOhMAL5 IqC9UOI2sKUzfM2saDqmuk yqyY7xLhs+ TVJOOjwvdGQ+MIOyLYI3sE htSWetTGCjgH5xXKNoU9b4 VcKbXbD4SVuhT7ErjeM3OZ JvbGQgMTBw eOTTiG7cywcdm6suczhzPb IoJUQnZCy8RCt0SMXgvZjl CePeJFG2DtC9SWV7bVEwzF 1hbGlnbjog wI9bQme+FLS0QOS3LH79LD 56A4QsDefuoZNajWH+PHRh YmxlIHdpZHRoPScxMDAlJy YvxMihEO5q Ym9 (more content not included)... [facility] 06-16-2022 Provider Orders [id number] [facility] US Venous, Unilat, Lower Ext Righton 06-12-2022 US Venous, Unilat, Lower Ext Right History: Pain, history of varicose vein surgery VENOUS DUPLEX ULTRASOUND OF THE RIGHT LOWER EXTREMITY CLINICAL HISTORY: Joint pain COMPARISON: NONE AVAILABLE TECHNIQUE: Sonographic imaging of the deep venous system of the right lower extremity was performed by a registered medical billing coder and the images were submitted for interpretation. [...] by RU RAMIRES on 06/12/2022 1248 Normal [facility] [place] [employer] CBC AUTO DIFFon 06-02-2022 BASO # 0.0 103/ul Normal 0.0-0.1 [facility] Comment on above: Performed By: #### C BC ####[facility] [address] [place] [address]Dr. Odilia Ceron Basophils/100 WBC (Bld) 0.4 % Normal 0.2-2.0 [facility] Comment on above: Performed By: #### C BC ####[facility] [address] [place] [address]Dr. Odilia Osmany EO # 0.1 103/ul Normal 0.0-0.7 [facility] Comment on above: Performed By: #### C BC ####[facility] [address] [place] [address]Dr. Odilia Ceron Eosinophils/100 WBC (Bld) 1.7 % Normal 0.9-7.0 [facility] Comment on above: Performed By: #### C BC ####[facility] [address] [place] [address]Dr. Ijeomaanoop Ceron Erythrocyte distribution width (RBC) [Ratio] 20.5 % Critically high 11.0-15.0 [facility] Comment on above: Performed By: #### C BC ####[facility] [address] [place] [address]Dr. Odilia Ceron Hematocrit (Bld) [Volume fraction] 32.1 % Critically low 36.0-48.0 [facility] Comment on above: Performed By: #### C BC ####[facility] [address] [place] [address]Dr. Ijeomaanoop Ceron Hemoglobin (Bld) [Mass/Vol] 10.1 g/dL Critically low 12.0-16.0 [facility] Comment on above: Performed By: #### C BC ####[facility] [address] [place], [place] [address]Dr. Odilia Ceron IG # 0.01 10e3/ul Normal 0.00-0.03 [facility] Comment on above: Performed By: #### C BC ####[facility] [address] [place], [place] [address]Dr. Odilia Ceron IG % 0.2 % Normal 0.0-0.5 [facility] Comment on above: Performed By: #### C BC ####[facility] [address] [place], [place] [address]Dr. Odilia Ceron LYMPH # 1.9 103/ul Normal 1.2-3.8 [facility] Comment on above: Performed By: #### C BC ####[facility] [address] [place], [place] [address]DrNoemi Ceron Lymphocytes/100 WBC (Bld) 40.8 % Normal 20.5-60.0 [facility] Comment on above: Performed By: #### C BC ####[facility] [address] [place], [place] [address]DrNoemi Ceron MANUAL DIFF REQ NO Normal [facility] Comment on above: Performed By: #### C BC ####[facility] [address] [place], [place] [address]DrNoemi Ceron MCH (RBC) [Entitic mass] 25.9 pg Critically low 26.7-34.0 [facility] Comment on above: Performed By: #### C BC ####[facility] [address] [place], [place] [address]Dr. Odilia Ceron MCHC (RBC) [Mass/Vol] 31.5 g/dL Normal 29.9-35.2 [facility] Comment on above: Performed By: #### C BC ####[facility] [address] [place] [address]Dr. Odilia Ceron MCV (RBC) [Entitic vol] 82.3 fL Normal 81.0-99.0 [facility] Comment on above: Performed By: #### C BC ####[facility] [address] [place] [address]Dr. Odilia Osmany MONO # 0.6 103/ul Normal 0.3-0.8 [facility] Comment on above: Performed By: #### C BC ####[facility] [address] [place] [address]Dr. Odilia Ceron Monocytes/100 WBC (Bld) 12.2 % Critically high 1.7-12.0 [facility] Comment on above: Performed By: #### C BC ####[facility] [address] [place], [place] [address]Dr. Odilia Ceron NEUT # 2.1 103/ul Normal 1.4-6.5 [facility] Comment on above: Performed By: #### C BC ####[facility] [address] [place] [address]Dr. Ijeomaanoop Ceron Neutrophils/100 WBC (Bld) 44.7 % Normal 43.0-75.0 [facility] Comment on above: Performed By: #### C BC ####[facility] [address] [place] [address]Dr. Ijeomaanoop Ceron Platelet mean volume (Bld) [Entitic vol] 9.5 fL Normal 9.5-13.5 [facility] Comment on above: Performed By: #### C BC ####[facility] [address] [place] [address]Dr. Odilia Ceron PLT 337 103/ul Normal 150-450 [facility] Comment on above: Performed By: #### C BC ####[facility] [address] [place] [address]Dr. Odilia Ceron RBC 3.90 106/ul Critically low 4.20-5.40 [facility] Comment on above: Performed By: #### C BC ####[facility] [address] [place] [id number]. Odilia Ceron WBC 4.7 103/ul Normal 4.0-11.0 [facility] Comment on above: Performed By: #### C BC ####[facility] [address] [place] [id number]. Odilia Ceron FERRITINon 06-02-2022 Ferritin [Mass/Vol] 19.0 ng/mL Normal 8.0-252.0 [facility] Comment on above: Performed By: #### F T4, FETIBC, FERR ####[facility] [address] [place] [address]Dr. Odilia Ceron FREE T4on 06-02-2022 Free T4 [Mass/Vol] 0.74 ng/dL Critically low 0.76-1.46 [facility] Comment on above: Performed By: #### F T4, FETIBC, FERR ####[facility] [address] [place] [address]Dr. Odilia Ceron GLYCOHEMOGLOBIN A1Con 2021 ADA RECOMMENDATION SEE BELOW Normal [facility] Comment on above: Result Comment: ADA RECOMMENDED LIMIT 4.0 - 6.0 ADA THERAPEUTIC TARGET < 7.0 ACTION SUGGESTED > 7.0 Performed By: #### A 1C #### [facility] [address] [place] [address] [address] Odilia Ceron Glucose [Mass/Vol] 91 mg/dL Normal 74-106 [facility] Comment on above: Performed By: #### A 1C #### [facility] [address] [place] [address] [address] Odilia Ceron Performed By: #### T SH, LIPID, CMP #### [facility] [address] [place] [address] [address] Odilia Ceron HbA1c (Bld) [Mass fraction] 4.8 % Normal 4.5-6.2 [facility] Comment on above: Performed By: #### A 1C #### [facility] [address] [place] [address] [address] Odilia Ceron IRON AND TIBCon 06-02-2022 % SATURATION 5.4 % Normal [facility] Comment on above: Performed By: #### F T4, FETIBC, FERR ####[facility] [address] [place] [id number] Ceron Iron [Mass/Vol] 19.0 ug/dL Critically low 50.0-170.0 [facility] Comment on above: Performed By: #### F T4, FETIBC, FERR ####[facility] [address] [place] [id number] Ceron TIBC DIRECT 353.0 ug/dL Normal 250.0-450.0 [facility] Comment on above: Performed By: #### F T4, FETIBC, FERR ####[facility] [address] [place] [id number] Ceron LIPID PROFILEon 06-02-2022 CHOL-HDL RATIO NORM SEE BELOW Normal [facility] Comment on above: Result Comment: 3.3 - 4.4 LOW RISK 4.4 - 7.1 AVERAGE RISK 7.1 - 11.0 MODERATE RISK >11.0 HIGH RISK Performed By: #### T SH, LIPID, CMP #### [facility] [address] [place] [address] [address] Odilia Ceron Cholesterol [Mass/Vol] 156 mg/dL Normal <=200 [facility] Comment on above: Performed By: #### T SH, LIPID, CMP #### [facility] [address] [place] [address] [address] Odilia Ceron Cholesterol in HDL [Mass/Vol] 50 mg/dL Normal 40-60 [facility] Comment on above: Performed By: #### T SH, LIPID, CMP #### [facility] [address] [place] [address] [address] Odilia Ceron Cholesterol in LDL [Mass/Vol] 73.0 mg/dL Normal [facility] Comment on above: Performed By: #### T SH, LIPID, CMP #### [facility] [address] [place] [address] [address] Odilia Ceron Cholesterol.total/C holesterol in HDL [Mass ratio] 3.1 {ratio} Normal [facility] Comment on above: Performed By: #### T JAY, LIPID, CMP #### [facility] [address] [place] [address] Dr. Odilia Ceron HDL NORMAL > or = 60 mg/dl - LO W CARDIOVASCULAR RISK <40 mg/dl - HIGH CARDIOVASCULAR RISK Normal [facility] Comment on above: Performed By: #### T JAY, LIPID, CMP #### [facility] [address] [place] [address] [address] Odilia Ceron LDL CALC NORMAL SEE BELOW Normal [facility] Comment on above: Result Comment: <100 mg/dl OPTIMAL 100 - 129 mg/dl NEAR OR ABOVE OPTIMAL 130 - 159 mg/dl BORDERLINE HIGH 160 - 189 mg/dl HIGH >190 mg/dl VERY HIGH Performed By: #### T JAY, LIPID, CMP #### [facility] [address] [place] [address] Dr. Odilia Ceron Triglyceride [Mass/Vol] 165 mg/dL Critically high <=150 [facility] Comment on above: Performed By: #### T JAY, LIPID, CMP #### [facility] [address] [place] [address] Dr. Odilia Ceron VLDL CALC 33.0 mg/dL Normal [facility] Comment on above: Performed By: #### T JAY, LIPID, CMP #### [facility] [address] [place] [address] Dr. Odilia Ceron PROF 14(COMP METB)on 022 Albumin [Mass/Vol] 3.3 g/dL Critically low 3.4-5.0 [facility] Comment on above: Performed By: #### T JAY, LIPID, CMP #### [facility] [address] [place] [address] Dr. Odilia Ceron Albumin/Globulin [Mass ratio] 1.0 {ratio} Normal [facility] Comment on above: Performed By: #### T JAY, LIPID, CMP #### [facility] [address] [address] [address] Odilia Ceron ALP [Catalytic activity/Vol] 90 U/L Normal 46-116 [facility] Comment on above: Performed By: #### T SH, LIPID, CMP #### [facility] [address] [address] [address] Odilia Ceron ALT [Catalytic activity/Vol] 25 U/L Normal 14-59 [facility] Comment on above: Performed By: #### T SH, LIPID, CMP #### [facility] [address] [address] [address] Odilia Ceron Anion gap [Moles/Vol] 10.0 mmol/L Normal [facility] Comment on above: Performed By: #### T SH, LIPID, CMP #### [facility] [address] [address] [address] Odilia Ceron AST [Catalytic activity/Vol] 25 U/L Normal 15-37 [facility] Comment on above: Performed By: #### T SH, LIPID, CMP #### [facility] [address] [address] [address] Odiila Ceron Bilirubin [Mass/Vol] 0.3 mg/dL Normal 0.2-1.0 [facility] Comment on above: Performed By: #### T SH, LIPID, CMP #### [facility] [address] [place] [address] Dr. Odilia Ceron Calcium [Mass/Vol] 8.9 mg/dL Normal 8.5-10.1 [facility] Comment on above: Performed By: #### T SH, LIPID, CMP #### [facility] [address] [address] [address] Odilia Ceron Chloride [Moles/Vol] 106 mmol/L Normal 98-107 [facility] Comment on above: Performed By: #### T SH, LIPID, CMP #### [facility] [address] [address] [address] Odilia Ceron CO2 [Moles/Vol] 30.0 mmol/L Normal 21.0-32.0 [facility] Comment on above: Performed By: #### T SH, LIPID, CMP #### [facility] [address] [address] [address] Odilia Ceron Creatinine [Mass/Vol] 0.83 mg/dL Normal 0.55-1.02 [facility] Comment on above: Performed By: #### T SH, LIPID, CMP #### [facility] [address] [address] [address] Odilia Ceron EGFR-AF YEMENI >60 Normal >=60 [facility] Comment on above: Performed By: #### T SH, LIPID, CMP #### [facility] [address] [address] [address] Odilia Ceron EGFR-NON AF YEMENI >60 Normal >=60 [facility] Comment on above: Performed By: #### T SH, LIPID, CMP #### [facility] [address] [address] [address] Odilia Ceron Globulin (S) [Mass/Vol] 3.4 g/dL Normal [facility] Comment on above: Performed By: #### T SH, LIPID, CMP #### [facility] [address] [address] [address] Odilia Ceron Potassium [Moles/Vol] 4.0 mmol/L Normal 3.5-5.1 [facility] Comment on above: Performed By: #### T SH, LIPID, CMP #### [facility] [address] [address] [address] Odilia Ceron Protein [Mass/Vol] 6.7 g/dL Normal 6.4-8.2 [facility] Comment on above: Performed By: #### T SH, LIPID, CMP #### [facility] [address] [address] [address] Odilia Ceron Sodium [Moles/Vol] 142 mmol/L Normal 136-145 [facility] Comment on above: Performed By: #### T SH, LIPID, CMP #### [facility] [address] [address] [address] Odilia Ceron Urea nitrogen [Mass/Vol] 16.0 mg/dL Normal 7.0-18.0 [facility] Comment on above: Performed By: #### T SH, LIPID, CMP #### [facility] [address] [address] [address] Odilia Ceron Urea nitrogen/Creatinine [Mass ratio] 19.3 mg/mg Normal [facility] Comment on above: Performed By: #### T SH, LIPID, CMP #### [facility] [address] [address] [address] Odilia Ceron TSHon 06-02-2022 TSH 3.036 uIU/mL Normal 0.358-3.740 [facility] Comment on above: Performed By: #### T SH, LIPID, CMP #### [facility] [address] [address] [address] Odilia Ceron VC INJ SCL NAVI PLUG MAKER VEINSon 1 VC INJ SCL NAVI PLUG MAKER VEINS Patient: SHAUNA CHRISTENSEN Exam Date: 06/01/2022 : 1955 Gender:F Ordering : DR MAYANK MICHAEL M.D. Admission #: [id number] Family : Order #: [id number] CLICK HERE TO VIEW EXAM CORRECTION: changed veins injected Corrected on: 06/01/2022; RADIOLOGY REPORT PROCEDURE: VEIN CENTER INJECTION SCLEROSING SOLUTION MULTIPLE VEINS SAME COMPARISON: VC INJ SCL NAVI PLUG MAKER VEINS, 05/25/2022. VC INJ SCL NAVI PLUG MAKER VEINS, 05/19/2022. INDICATIONS: Pain co-occurrent and due [...] successful sclerotherapy as described Dictated by: Mayank Michael MD on 06/01/2022 at 09:50 Approved by: Mayank Michael MD on 06/01/2022 at 09:58 Dictated by: Mayank Michael MD on 06/01/2022 at 10:05 Approved by: Mayank Michael MD on 06/01/2022 at 10:05 Normal [facility] VC INJ SCL NAVI PLUG MAKER VEINSon 1 07-26-2021 VC INJ SCL NAVI PLUG MAKER VEINS Patient: SHAUNA CHRISTENSEN Exam Date: 05/25/2022 : 1955 Gender:F Ordering : DR MAYANK MICHAEL M.D. Admission #: [id number] Family : Order #: [id number] CLICK HERE TO VIEW EXAM RADIOLOGY REPORT PROCEDURE: VEIN CENTER INJECTION SCLEROSING SOLUTION MULTIPLE VEINS SAME COMPARISON: VC INJ SCL NAVI PLUG MAKER VEINS, 05/19/2022. INDICATIONS: Pain co-occurrent and due [...] Best M.D. on 05/25/2022 at 15:47 Normal [facility] VC INJ SCL NAVI PLUG MAKER VEINSon 1 07-20-2021 VC INJ SCL NAVI PLUG MAKER VEINS Patient: SHAUNA CHRISTENSEN Exam Date: 05/19/2022 : 1955 Gender:F Ordering : DR MAYANK MICHAEL M.D. Admission #: [id number] Family : Order #: [id number] CLICK HERE TO VIEW EXAM RADIOLOGY REPORT [...] successful sclerotherapy as described Dictated by: Mayank Michael MD on 05/19/2022 at 08:33 Approved by: Myaank Michael MD on 05/19/2022 at 08:33 Normal [facility] VC CONSULT FOLLOWUPon 2021 VC CONSULT FOLLOWUP Patient: PRO CHRISTENSEN RA Exam Date: 05/05/2022 : 1955 Gender:F Ordering : DR MAYANK MICHAEL M.D. Admission #: [id number] Family : Order #: [id number] CLICK HERE TO VIEW EXAM RADIOLOGY REPORT [...] physical exam and consultation Dictated by: Mayank Michael MD on 05/05/2022 at 09:47 Approved by: Mayank Michael MD on 05/05/2022 at 09:49 Normal [facility] VC EXT VENOUS RT LIMITEDon 1 07-06-2021 VC EXT VENOUS RT LIMITED Patient: SHAUNA CHRISTENSEN Exam Date: 05/05/2022 : 1955 Gender:F Ordering : DR MAYANK MICHAEL M.D. Admission #: [id number] Family : Order #: [id number] CLICK HERE TO VIEW EXAM RADIOLOGY REPORT [...] in varicose vein mid-distal thigh and associated cloth piecer. Stable thrombus in PTV 9 cm segment. COMPRESSIBILITY: Non-compressible AND partially compressible segments corresponding to thrombus. FLOW: Absent flow corresponding to thrombus OTHER: No significant patent varicose veins visualized. *Exam performed in accordance with [facility] practice guidelines- Peripheral venous ultrasound, August 28, 2009. CONCLUSION: Post ablation occlusion of treated varicose veins Dictated by: Mayank Michael MD on 05/05/2022 at 09:33 Approved by: Mayank Michael MD on 05/05/2022 at 09:47 Normal [facility] VC INJ FOAM SCLERO W US MLTI on 05-01-2022 VC INJ FOAM SCLERO W US MLTI Patient: SHAUNA CHRISTENSEN Exam Date: 05/01/2022 : 1955 Gender:F Ordering : DR MAYANK MICHAEL M.D. Admission #: [id number] Family : Order #: [id number] CLICK HERE TO VIEW EXAM RADIOLOGY REPORT [...] Candice Best M.D. on 05/01/2022 at 14:28 [facility] VC CONSULT FOLLOWUPon 2021 VC CONSULT FOLLOWUP Patient: PRO CHRISTENSEN RA Exam Date: 04/24/2022 : 1955 Gender:F Ordering : DR MAYANK MICHAEL M.D. Admission #: [id number] Family : Order #: [id number] CLICK HERE TO VIEW EXAM RADIOLOGY REPORT [...] physical exam and consultation Dictated by: Mayank Michael MD on 04/24/2022 at 09:51 Approved by: Mayank Michael MD on 04/24/2022 at 09:53 Normal [facility] VC EXT VENOUS RT LIMITEDon 1 06-24-2021 VC EXT VENOUS RT LIMITED Patient: SHAUNA CHRISTENSEN Exam Date: 04/24/2022 : 1955 Gender:F Ordering : DR MAYANK MICHAEL M.D. Admission #: [id number] Family : Order #: [id number] CLICK HERE TO VIEW EXAM RADIOLOGY REPORT [...] 4.3 cm. *Exam performed in accordance with [facility] practice guidelines- Peripheral venous ultrasound, August 28, 2009. CONCLUSION: 1. 9 cm segment of deep vein thrombus in the posterior tibial vein likely related to a perforating vein. This is 8 cm from the popliteal vein 2. Post ablation occlusion of treated right leg varicose veins Dictated by: Mayank Michael MD on 04/24/2022 at 09:27 Approved by: Mayank Michael MD on 04/24/2022 at 09:29 Normal [facility] VC INJ FOAM SCLERO W US MLTI on 04-17-2022 VC INJ FOAM SCLERO W US MLTI Patient: SHAUNA CHRISTENSEN Exam Date: 04/17/2022 : 1955 Gender:F Ordering : DR MAYANK MICHAEL M.D. Admission #: [id number] Family : Order #: [id number] CLICK HERE TO VIEW EXAM RADIOLOGY REPORT [...] with Varithena(r) 2. Intraoperative ultrasound guidance Physician: Mayank Michael M.D. Anesthesia: None Indications for Procedure: 67-year-old [...] anti-i (more content not included)... Normal [facility] VC CONSULT FOLLOWUPon 2021 VC CONSULT FOLLOWUP Patient: PRO CHRISTENSEN RA Exam Date: 03/24/2022 : 1955 Gender:F Ordering : DR MAYANK MICHAEL M.D. Admission #: [id number] Family : Order #: [id number] CLICK HERE TO VIEW EXAM RADIOLOGY REPORT [...] physical exam and consultation Dictated by: Mayank Michael MD on 03/24/2022 at 13:48 Approved by: Mayank Michael MD on 03/24/2022 at 13:50 Normal [facility] VC EXT VENOUS RT LIMITEDon 1 VC EXT VENOUS RT LIMITED Patient: SHAUNA CHRISTENSEN Exam Date: 03/24/2022 : 1955 Gender:F Ordering : DR MAYANK MICHAEL M.D. Admission #: [id number] Family : Order #: [id number] CLICK HERE TO VIEW EXAM RADIOLOGY REPORT [...] no flow. *Exam performed in accordance with [facility] practice guidelines- Peripheral venous ultrasound, August 28, 2009. CONCLUSION: Post ablation occlusion of the right small saphenous vein, this was a thigh extension. No deep vein thrombus Dictated by: Mayank Michael MD on 03/24/2022 at 11:14 Approved by: Mayank Michael MD on 03/24/2022 at 11:15 Normal [facility] VC ENDOVENOUS ABL 1ST V RTon 03-21-2022 VC ENDOVENOUS ABL 1ST V RT Patient: SHAUNA CHRISTENSEN Exam Date: 03/21/2022 : 1955 Gender:F Ordering : DR MAYANK MICHAEL M.D. Admission #: [id number] Family : Order #: [id number] CLICK HERE TO VIEW EXAM RADIOLOGY REPORT [...] Best M.D. on 03/21/2022 at 10:18 Normal [facility] OSMOLALITYon 03-13-2022 Osmolality [Osmolality] 291 mosm/kg Normal 280-301 [facility] Comment on above: Performed By: #### O SMO ####[facility] [address] [address]. Odilia Ceron OSMOLALITY URINEon 2 Osmolality, Urine 647 mOsmol/kg Normal [facility] Comment on above: Result Comment: 24 h r : 300 - 900 Random: 50 - 1400 After 12hr fluid restriction: >850 Performed By: #### O SMOU ####[facility] [address] [place], [place] [address]Dr. Odilia Ceron CBC AUTO DIFFon 03-10-2022 BASO # 0.0 103/ul Normal 0.0-0.1 [facility] Comment on above: Performed By: #### C BC #### [facility] [address] [place] [address] Dr. Odilia Ceron Basophils/100 WBC (Bld) 0.6 % Normal 0.2-2.0 [facility] Comment on above: Performed By: #### C BC #### [facility] [address] [place] [address] Dr. Odilia Ceron EO # 0.2 103/ul Normal 0.0-0.7 [facility] Comment on above: Performed By: #### C BC #### [facility] [address] [place] [address] Dr. Odilia Ceron Eosinophils/100 WBC (Bld) 3.4 % Normal 0.9-7.0 [facility] Comment on above: Performed By: #### C BC #### [facility] [address] [place] [address] Dr. Odilia Ceron Erythrocyte distribution width (RBC) [Ratio] 17.7 % Critically high 11.0-15.0 [facility] Comment on above: Performed By: #### C BC #### [facility] [address] [place] [address] Dr. Odilia Ceron Hematocrit (Bld) [Volume fraction] 24.7 % Critically low 36.0-48.0 [facility] Comment on above: Performed By: #### C BC #### [facility] [address] [place] [address] Dr. Odilia Ceron Hemoglobin (Bld) [Mass/Vol] 7.2 g/dL Critically low 12.0-16.0 [facility] Comment on above: Performed By: #### C BC #### [facility] [address] [place] [address] Dr. Odilia Ceron IG # 0.02 10e3/ul Normal 0.00-0.03 [facility] Comment on above: Performed By: #### C BC #### [facility] [address] [place] [address] Dr. Odilia Ceron IG % 0.4 % Normal 0.0-0.5 [facility] Comment on above: Performed By: #### C BC #### [facility] [address] [place] [address] Dr. Odilia Ceron LYMPH # 2.3 103/ul Normal 1.2-3.8 [facility] Comment on above: Performed By: #### C BC #### [facility] [address] [place] [address] Dr. Odilia Ceron Lymphocytes/100 WBC (Bld) 45.5 % Normal 20.5-60.0 [facility] Comment on above: Performed By: #### C BC #### [facility] [address] [place] [address] Dr. Odilia Ceron MANUAL DIFF REQ NO Normal [facility] Comment on above: Performed By: #### C BC #### [facility] [address] [place] [address] Dr. Odilia Ceron MCH (RBC) [Entitic mass] 20.7 pg Critically low 26.7-34.0 [facility] Comment on above: Performed By: #### C BC #### [facility] [address] [place] [address] Dr. Odilia Ceron MCHC (RBC) [Mass/Vol] 29.1 g/dL Critically low 29.9-35.2 [facility] Comment on above: Performed By: #### C BC #### [facility] [address] [place] [address] Dr. Odilia Ceron MCV (RBC) [Entitic vol] 71.0 fL Critically low 81.0-99.0 [facility] Comment on above: Performed By: #### C BC #### [facility] [address] [place] [address] Dr. Odilia Ceron MONO # 0.6 103/ul Normal 0.3-0.8 [facility] Comment on above: Performed By: #### C BC #### [facility] [address] [place] [address] Dr. Odilia Ceron Monocytes/100 WBC (Bld) 11.6 % Normal 1.7-12.0 [facility] Comment on above: Performed By: #### C BC #### [facility] [address] [place] [address] Dr. Odilia Ceron NEUT # 1.9 103/ul Normal 1.4-6.5 [facility] Comment on above: Performed By: #### C BC #### [facility] [address] [place] [address] Dr. Odilia Ceron Neutrophils/100 WBC (Bld) 38.5 % Critically low 43.0-75.0 [facility] Comment on above: Performed By: #### C BC #### [facility] [address] [place] [address] Dr. Odilia Ceron Platelet mean volume (Bld) [Entitic vol] 9.4 fL Critically low 9.5-13.5 [facility] Comment on above: Performed By: #### C BC #### [facility] [address] [address] [address] Odilia Ceron PLT 384 103/ul Normal 150-450 [facility] Comment on above: Performed By: #### C BC #### [facility] [address] [address] [address] Odilia Ceron RBC 3.48 106/ul Critically low 4.20-5.40 [facility] Comment on above: Performed By: #### C BC #### [facility] [address] [address] [address] Odilia Ceron WBC 5.0 103/ul Normal 4.0-11.0 [facility] Comment on above: Performed By: #### C BC #### [facility] [address] [address] [address] Odilia Ceron GLYCOHEMOGLOBIN A1Con 2021 ADA RECOMMENDATION SEE BELOW Normal [facility] Comment on above: Result Comment: ADA RECOMMENDED LIMIT 4.0 - 6.0 ADA THERAPEUTIC TARGET < 7.0 ACTION SUGGESTED > 7.0 Performed By: #### A 1C ####[facility] [address] [address]DrNoemi Ceron Glucose [Mass/Vol] 103 mg/dL Normal [facility] Comment on above: Performed By: #### A 1C ####[facility] [address] [address]Dr. Odilia Ceron HbA1c (Bld) [Mass fraction] 5.2 % Normal 4.5-6.2 [facility] Comment on above: Performed By: #### A 1C ####[facility] [address] [address]Dr. Odilia Ceron LIPID PROFILEon 03-10-2022 CHOL-HDL RATIO NORM SEE BELOW Normal [facility] Comment on above: Result Comment: 3.3 - 4.4 LOW RISK 4.4 - 7.1 AVERAGE RISK 7.1 - 11.0 MODERATE RISK >11.0 HIGH RISK Performed By: #### L IPID, CMP #### [facility] [address] [address] [address] Odilia Ceron Cholesterol [Mass/Vol] 134 mg/dL Normal <=200 [facility] Comment on above: Performed By: #### L IPID, CMP #### [facility] [address] [address] [address] Odilia Ceron Cholesterol in HDL [Mass/Vol] 49 mg/dL Normal 40-60 [facility] Comment on above: Performed By: #### L IPID, CMP #### [facility] [address] [address] [address] Odilia Ceron Cholesterol in LDL [Mass/Vol] 67.4 mg/dL Normal [facility] Comment on above: Performed By: #### L IPID, CMP #### [facility] [address] [address] [address] Odilia Ceron Cholesterol.total/C holesterol in HDL [Mass ratio] 2.7 {ratio} Normal [facility] Comment on above: Performed By: #### L IPID, CMP #### [facility] [address] [address] [address] Odilia Ceron HDL NORMAL > or = 60 mg/dl - LO W CARDIOVASCULAR RISK <40 mg/dl - HIGH CARDIOVASCULAR RISK Normal [facility] Comment on above: Performed By: #### L IPID, CMP #### [facility] [address] [address] [address] Odilia Ceron LDL CALC NORMAL SEE BELOW Normal [facility] Comment on above: Result Comment: <100 mg/dl OPTIMAL 100 - 129 mg/dl NEAR OR ABOVE OPTIMAL 130 - 159 mg/dl BORDERLINE HIGH 160 - 189 mg/dl HIGH >190 mg/dl VERY HIGH Performed By: #### L IPID, CMP #### [facility] [address] [address] [address] Odilia Ceron Triglyceride [Mass/Vol] 88 mg/dL Normal <=150 [facility] Comment on above: Performed By: #### L IPID, CMP #### [facility] [address] [address] [address] Odilia Ceron VLDL CALC 17.6 mg/dL Normal [facility] Comment on above: Performed By: #### L IPID, CMP #### [facility] [address] [address] [address] Odilia Ceron PROF 14(COMP METB)on 022 Albumin [Mass/Vol] 3.5 g/dL Normal 3.4-5.0 [facility] Comment on above: Performed By: #### L IPID, CMP #### [facility] [address] [address] [address] Odilia Ceron Albumin/Globulin [Mass ratio] 1.1 {ratio} Normal [facility] Comment on above: Performed By: #### L IPID, CMP #### [facility] [address] [place] [address] Dr. Odilia Ceron ALP [Catalytic activity/Vol] 86 U/L Normal 46-116 [facility] Comment on above: Performed By: #### L IPID, CMP #### [facility] [address] [place] [address] Dr. Odilia Ceron ALT [Catalytic activity/Vol] 20 U/L Normal 14-59 [facility] Comment on above: Performed By: #### L IPID, CMP #### [facility] [address] [place] [address] Dr. Odilia Ceron Anion gap [Moles/Vol] 15.3 mmol/L Normal [facility] Comment on above: Performed By: #### L IPID, CMP #### [facility] [address] [place] [address] Dr. Odilia Ceron AST [Catalytic activity/Vol] 15 U/L Normal 15-37 [facility] Comment on above: Performed By: #### L IPID, CMP #### [facility] [address] [place] [address] Dr. Odilia Ceron Bilirubin [Mass/Vol] 0.5 mg/dL Normal 0.2-1.0 [facility] Comment on above: Performed By: #### L IPID, CMP #### [facility] [address] [place] [address] Dr. Odilia Ceron Calcium [Mass/Vol] 9.1 mg/dL Normal 8.5-10.1 [facility] Comment on above: Performed By: #### L IPID, CMP #### [facility] [address] [place] [address] Dr. Odilia Ceron Chloride [Moles/Vol] 127 mmol/L Critically high 98-107 [facility] Comment on above: Performed By: #### L IPID, CMP #### [facility] [address] [place] [address] Dr. Odilia Ceron CO2 [Moles/Vol] 28.1 mmol/L Normal 21.0-32.0 [facility] Comment on above: Performed By: #### L IPID, CMP #### [facility] [address] [place] [address] Dr. Odilia Ceron Creatinine [Mass/Vol] 0.90 mg/dL Normal 0.55-1.02 [facility] Comment on above: Performed By: #### L IPID, CMP #### [facility] [address] [place] [address] Dr. Odilia Ceron EGFR-AF YEMENI >60 Normal >=60 [facility] Comment on above: Performed By: #### L IPID, CMP #### [facility] [address] [place] [address] Dr. Odilia Ceron EGFR-NON AF YEMENI >60 Normal >=60 [facility] Comment on above: Performed By: #### L IPID, CMP #### [facility] [address] [place] [address] Dr. Odilia Ceron Globulin (S) [Mass/Vol] 3.3 g/dL Normal [facility] Comment on above: Performed By: #### L IPID, CMP #### [facility] [address] [place] [address] Dr. Odilia Ceron Glucose [Mass/Vol] 94 mg/dL Normal 74-106 [facility] Comment on above: Performed By: #### L IPID, CMP #### [facility] [address] [place] [address] Dr. Odilia Ceron Potassium [Moles/Vol] 5.0 mmol/L Normal 3.5-5.1 [facility] Comment on above: Performed By: #### L IPID, CMP #### [facility] [address] [place] [address] Dr. Odilia Ceron Protein [Mass/Vol] 6.8 g/dL Normal 6.4-8.2 [facility] Comment on above: Performed By: #### L IPID, CMP #### [facility] [address] [place] [address] Dr. Odilia Ceron Sodium [Moles/Vol] 162 mmol/L Critically high 136-145 [facility] Comment on above: Performed By: #### L IPID, CMP #### [facility] [address] [place] [address] Dr. Odilia Ceron Urea nitrogen [Mass/Vol] 22.0 mg/dL Critically high 7.0-18.0 [facility] Comment on above: Performed By: #### L IPID, CMP #### [facility] [address] [place] [address] Dr. Odilia Ceron Urea nitrogen/Creatinine [Mass ratio] 24.4 mg/mg Normal [facility] Comment on above: Performed By: #### L IPID, CMP #### [facility] [address] [place] [address] Dr. Odilia Ceron MG MAMM SCREEN 3D AMANDA CADon 03-06-2022 MG MAMM SCREEN 3D AMANDA CAD Patient: SHAUNA CHRISTENSEN Exam Date: 03/06/2022 : 1955 Gender:F Ordering : WERNER BEJARANO Admission #: [id number] Family : Order #: [id number] CLICK HERE TO VIEW EXAM RADIOLOGY REPORT [...] hodgkins cancer at age 33. LOCATION: [facility] BREAST COMPOSITION: Heterogeneously dense,which may [...] PALPABLE LUMP SHOULD BE BIOPSIED. Dictated by: Maaynk Michael MD on 03/06/2022 at 10:27 Approved by: Mayank Michael MD on 03/06/2022 at 10:29 Normal [facility] VC CONSULT FOLLOWUPon 2021 VC CONSULT FOLLOWUP Patient: PRO CHRISTENSEN RA Exam Date: 03/03/2022 : 1955 Gender:F Ordering : DR MAYANK MICHAEL M.D. Admission #: [id number] Family : Order #: [id number] CLICK HERE TO VIEW EXAM RADIOLOGY REPORT [...] physical exam and consultation Dictated by: Mayank Michael MD on 03/03/2022 at 09:36 Approved by: Mayank Michael MD on 03/03/2022 at 09:38 Normal [facility] VC EXT VENOUS RT LIMITEDon 0 03-03-2022 VC EXT VENOUS RT LIMITED Patient: SHAUNA CHRISTENSEN Exam Date: 03/03/2022 : 1955 Gender:F Ordering : DR MAYANK MICHAEL M.D. Admission #: [id number] Family : Order #: [id number] CLICK HERE TO VIEW EXAM RADIOLOGY REPORT [...] No deep vein thrombus Dictated by: Mayank Michael MD on 03/03/2022 at 09:21 Approved by: Mayank Michael MD on 03/03/2022 at 09:22 Normal [facility] VC ENDOVENOUS ABL 1ST V RTon 02-27-2022 VC ENDOVENOUS ABL 1ST V RT Patient: SHAUNA CHRISTENSEN Exam Date: 02/27/2022 : 1955 Gender:F Ordering : DR MAYANK MICHAEL M.D. Admission #: [id number] Family : Order #: [id number] CLICK HERE TO VIEW EXAM RADIOLOGY REPORT [...] right great saphenous vein. Dictated by: Mayank Michael MD on 02/27/2022 at 09:24 Approved by: Mayank Michael MD on 02/27/2022 at 09:29 Normal [facility] IMAGE-GUIDED PAP W/AGE BASED SCR PROTOCOLSon 02-10-2022 COMMENT Normal [facility] Comment on above: Result Comment: This order for age-based cervical cancer and STI screening follows ACOG guidelines(PB 168, 140, CHT689). See individual assays for performing site location. Performed By: #### 5 [id number], [id number] #### [facility]-[address], [address] [place] [address] Tail Dogger: Piter Cortes MD #### [id number], 91680 #### [facility] [address], [address] [place] [address] Tail Dogger: Piter Cortes MD Result Comment: EXPL ANATORY [...] APPROVAL TIQ DOCU MENTATIONon 02-10-2022 CONTACT DANIELLE CASAREZ [facility] Normal [facility] Comment on above: Performed By: #### 5 7859, 74613 #### [facility]-[address], [address] [place] [address] Tail Dogger: Piter Cortes MD #### [id number], [id number] #### [facility] [address], [address] [place] [address] Tail Dogger: Piter Cortes MD TESTS AFFECTED [id number] Normal [facility] Comment on above: Performed By: #### 5 1315, 63198 #### [facility]-[address], [address] [place] [address] Tail Dogger: Piter Cortes MD #### [id number], [id number] #### [facility] [place] [address] Tail Dogger: Piter Cortes MD TEST IN QUESTION - CYTOLOGYo n 02-10-2022 CONTAINER TYPE: TP Normal [facility] Comment on above: Performed By: #### 5 8315, 68684 #### [facility]-[address], [address] [place] [address] Tail Dogger: Piter Cortes MD #### [id number], 94737 #### [facility] [place] [address] Tail Dogger: Piter Cortes MD QUESTION/PROBLEM Normal [facility] Comment on above: Result Comment: MUL FORM RECEIVED Performed By: #### 5 8315, 38353 #### [facility], [address] [place] [address] Tail Dogger: Piter Cortes MD #### [id number], 07733 #### [facility] [place] [address] Tail Dogger: Piter Cortes MD THINPREP TIS PAPon 2 CLINICAL INFORMATION: Normal [facility] Comment on above: Result Comment: None given Performed By: #### 5 8315, 99575 #### [facility], [address] [place] [address] Tail Dogger: Piter Cortes MD #### [id number], 52391 #### [facility] [place] [address] Tail Dogger: Piter Cortes MD COMMENT: Normal [facility] [...] is not recommended. Performed By: #### 5 9715, 98086 #### [facility]-[address], [address] [place], [place] [id number] Tail Dogger: Piter Cortes MD #### [id number], 01060 #### [facility] [address], [address] [place] [address] Tail Dogger: Piter Cortes MD RESIDENTIAL DOOR INSTALLER: Normal See Note: [facility] Comment on above: Result Comment: Refe rence Range: ZL, CT(ASCP) CT screening location: [place] [address]. Performed By: #### 5 8315, 83647 #### [facility]-[address], [address] [place] [address] Tail Dogger: Piter Cortes MD #### [id number], 27985 #### [facility] [address], [address] [place] [address] Tail Dogger: Piter Cortes MD INTERPRETATION/RESU LT: Normal [facility] Comment on above: Result Comment: Nega tive for intraepithelial lesion or malignancy. Atrophic pattern; predominantly parabasal cells Performed By: #### 5 8315, 64665 #### [facility]-[address], [address] [place] [address] Tail Dogger: Piter Cortes MD #### 15076, 93486 #### [facility] [address], [address] [place] [address] Tail Dogger: Piter Cortes MD LMP: Normal [facility] Comment on above: Result Comment: None given Performed By: #### 5 8315, 28887 #### [facility]-[address], [address] [place], [place] [id number] Tail Dogger: Piter Cortes MD #### [id number], 65985 #### [facility] of [address], [address] [place], [place] [id number] Tail Dogger: Piter Cortes MD PREV. BX: Normal [facility] Comment on above: Result Comment: None given Performed By: #### 5 8315, 45327 #### [facility]-[address], [address] [place], [place] [id number] Tail Dogger: Piter Cortes MD #### [id number], 77339 #### [facility] of [address], [address] [place], [place] [id number] Tail Dogger: Piter Cortes MD PREV. PAP: Normal [facility] Comment on above: Result Comment: None given Performed By: #### 5 8315, 19281 #### [facility]-[address], [address] [place], [place] [id number] Tail Dogger: Piter Cortes MD #### [id number], 97724 #### [facility] of [address], [address] [place] [address] Tail Dogger: Piter Cortes MD SOURCE: Normal [facility] Comment on above: Result Comment: None given Performed By: #### 5 8315, 71574 #### [facility]-[address], [address] [place], [place] [id number] Tail Dogger: Piter Cortes MD #### 65286, 18517 #### [facility] of [address], [address] [place] [address] Tail Dogger: Piter Cortes MD STATEMENT OF ADEQUACY: Normal [facility] Comment on above: Result Comment: SATI SFACTORY FOR EVALUATION Performed By: #### 5 8315, 76925 #### [facility]-[address], [address] [place], [place] [id number] Tail Dogger: Piter Cortes MD #### [id number], 21554 #### [facility] of [address], [address] [place], [place] [id number] Tail Dogger: Piter Cortes MD VC COMP CONSULTATIONon 01-06 VC COMP CONSULTATION Patient: SHAUNA CHRISTENSEN Exam Date: 01/06/2022 : 1955 Gender:F Ordering : DR MAYANK MICHAEL M.D. Admission #: [id number] Family : Order #: [id number] CLICK HERE TO VIEW EXAM RADIOLOGY REPORT [...] with multiple incompetent branch varicosities and several cloth piecer veins. Left leg demonstrates dilated, incompetent great saphenous vein proximally with a few tiny dilated mid calf cloth piecer veins and incompetent branch saphenous varicosities. PHYSICAL [...] arterial disease 5. CEAP: C3, EC, AP, [place] PLAN: 1. Continued use of compression stockings [...] Best M.D. on 01/06/2022 at 11:45 Normal [facility] VC VENOUS REFLUX AMANDA LMTon 0 01-06-2022 VC VENOUS REFLUX AMANDA LMT Patient: HSAUNA CHRISTENSEN Exam Date: 01/06/2022 : 1955 Gender:F Ordering : DR MAYANK MICHAEL M.D. Admission #: [id number] Family : Order #: [id number] CLICK HERE TO VIEW EXAM RADIOLOGY REPORT [...] chronic thrombus visualized Compressibility: Normal Flow: Normal Information Assurance: Dist/med calf 3.1mm with 0s reflux. Mid/med calf 4.2mm with 0s reflux. Tech Note: Incompetent SFJ and GSV. Patent varicose vein prox/med calf 5.5mm with 1.0s reflux. Patent varicose vein prox med thigh 3.2mm with 0s reflux. CONCLUSION: 1. 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 2. 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 3. Left lower extremity demonstrates dilated great saphenous and anterior accessory saphenous veins, but no significant reflux. 4. Consultation for endovenous ablation is recommended. Dictated by: Candice Best M.D. on 01/06/2022 at 11:14 Approved by: Candice Best M.D. on 01/06/2022 at 11:20 Normal [facility] MAGNESIUMon 11-26-2021 Magnesium [Mass/Vol] 2.2 mg/dL Normal 1.5-2.5 [facility] Comment on above: Order Comment: FASTI NG:NO FASTING: NO Performed By: #### 6 22 #### [facility] [place] [address] Tail Dogger: Piter Cortes MD XR CHEST 2 Von [...] ALTON BARRERA Date: 2021-11-25 12:49 Normal [facility] METABOLIC PANE [facility] 08-20-2021 Albumin [Mass/Vol] 4.1 g/dL Normal 3.6-5.1 [facility] Comment on above: Performed By: #### 5 8984, 53367, 7600 #### [facility] [address], [address] [place] [address] Tail Dogger: Piter Cortes MD Albumin/Globulin [Mass ratio] 1.5 {ratio} Normal 1.0-2.5 [facility] Comment on above: Performed By: #### 5 8984, 50674, 7600 #### [facility] [place] [address] Tail Dogger: Piter Cortes MD ALP [Catalytic activity/Vol] 86 U/L Normal 37-153 [facility] Comment on above: Performed By: #### 5 8984, 17100, 7600 #### [facility] [place] [address] Tail Dogger: Piter Cortes MD ALT [Catalytic activity/Vol] 13 U/L Normal 6-29 [facility] Comment on above: Performed By: #### 5 8984, 15851, 7600 #### [facility] [place] [address] Tail Dogger: Piter Cortes MD AST [Catalytic activity/Vol] 17 U/L Normal 10-35 [facility] Comment on above: Performed By: #### 5 8984, 99694, 7600 #### [facility] of [address], [address] [place] [address] Tail Dogger: Piter Cortes MD Bilirubin [Mass/Vol] 0.5 mg/dL Normal 0.2-1.2 [facility] Comment on above: Performed By: #### 5 8984, 60335, 0 #### [facility] [address], [address] [place] [address] Tail Dogger: Piter Cortes MD BUN/CREATININE RATIO NOT APPLICABLE Normal 6-22 [facility] Comment on above: Performed By: #### 5 8984, , 0 #### [facility] [place] [address] Tail Dogger: Piter Cortes MD Calcium [Mass/Vol] 9.2 mg/dL Normal 8.6-10.4 [facility] Comment on above: Performed By: #### 5 8984, 24789, 0 #### [facility] [place] [address] Tail Dogger: Piter Cortes MD Chloride [Moles/Vol] 106 mmol/L Normal 98-110 [facility] Comment on above: Performed By: #### 5 8984, 85892, 0 #### [facility] [place] [address] Tail Dogger: Piter Cortes MD CO2 [Moles/Vol] 26 mmol/L Normal 20-32 [facility] Comment on above: Performed By: #### 5 8984, 18774, 7600 #### [facility] of [place] [address] Tail Dogger: Piter Cortes MD Creatinine [Mass/Vol] 0.75 mg/dL Normal 0.50-0.99 [facility] Comment on above: Result Comment: For patients >49 years of age, the reference limit for Creatinine is approximately 13% higher for people identified as -Australian. Performed By: #### 5 8984, , 0 #### [facility] [place] [address] Tail Dogger: Piter Cortes MD eGFR NON-AFR. YEMENI 82 mL/min/1.73m2 Normal > OR = 60 [facility] Comment on above: Performed By: #### 5 8984, , 0 #### [facility] [place] [address] Tail Dogger: Piter Cortes MD GFR/1.73 sq M.predicted among blacks MDRD (S/P/Bld) [Vol rate/Area] 96 mL/min/{1.73_m2} Normal > OR = 60 [facility] Comment on above: Performed By: #### 5 8984, , 0 #### [facility] [place] [address] Tail Dogger: Piter Cortes MD Globulin (S) [Mass/Vol] 2.7 g/dL Normal 1.9-3.7 [facility] Comment on above: Performed By: #### 5 8984, , 0 #### [facility] [place] [address] Tail Dogger: Piter Cortes MD Glucose [Mass/Vol] 138 mg/dL Normal 65-139 [facility] Comment on above: Result Comment: Non-fasting reference interval For someone without known diabetes, a glucose value >125 mg/dL indicates that they may have diabetes and this should be confirmed with a follow-up test. Performed By: #### 5 8984, , 0 #### [facility] [place] [address] Tail Dogger: Piter Cortes MD Potassium [Moles/Vol] 4.0 mmol/L Normal 3.5-5.3 [facility] Comment on above: Performed By: #### 5 8984, 88808, 0 #### [facility] of [address], [address] [place] [address] Tail Dogger: Piter Cortes MD Protein [Mass/Vol] 6.8 g/dL Normal 6.1-8.1 [facility] Comment on above: Performed By: #### 5 8984, 17175, 7600 #### [facility] of [address], [address] [place] [address] Tail Dogger: Piter Cortes MD Sodium [Moles/Vol] 140 mmol/L Normal 135-146 [facility] Comment on above: Performed By: #### 5 8984, 25193, 0 #### [facility] of [place] [address] Tail Dogger: Piter Cortes MD Urea nitrogen [Mass/Vol] 19 mg/dL Normal 7-25 [facility] Comment on above: Performed By: #### 5 8984, 80336, 0 #### [facility] [place] [address] Tail Dogger: Piter Cortes MD LIPID PANEL, [facility] 08-02 Cholesterol [Mass/Vol] 205 mg/dL High <200 [facility] Comment on above: Order Comment: FASTI NG:NO FASTING: NO Performed By: #### 5 8984, 84117, 0 #### [facility] [place] [address] Tail Dogger: Piter Cortes MD Cholesterol in HDL [Mass/Vol] 52 mg/dL Normal > OR = 50 [facility] Comment on above: Order Comment: FASTI NG:NO FASTING: NO Performed By: #### 5 8984, 09464, 7600 #### [facility] of [place] [address] Tail Dogger: Piter Cortes MD Cholesterol in LDL [Mass/Vol] 117 mg/dL High [facility] Comment on above: Order Comment: FASTI NG:NO FASTING: NO Result Comment: Refe rence range: <100 Desirable range <100 mg/dL for primary prevention; <70 mg/dL for patients with CHD or diabetic patients with > or = 2 CHD risk factors. LDL-C is now calculated using the Luis Daniel calculation, which is a validated novel method providing better accuracy than the Friedewald equation in the estimation of LDL-C. Too ISABEL et al. KANE. 2013;310(19): 8988-2436 (http://education.TellApart/faq/BZD224) Performed By: #### 5 8984, 66130, 7600 #### [facility] [address], [address] [place] [address] Tail Dogger: Piter Cortes MD Cholesterol.total/C holesterol in HDL [Mass ratio] 3.9 {ratio} Normal <5.0 [facility] Comment on above: Order Comment: FASTI NG:NO FASTING: NO Performed By: #### 5 8984, 99927, 7600 #### [facility] [address], [address] [place] [address] Tail Dogger: Piter Cortes MD NON HDL CHOLESTEROL 153 mg/dL (calc) High <130 [facility] Comment on above: Order Comment: FASTI NG:NO FASTING: NO Result Comment: For patients with diabetes plus 1 major ASCVD risk factor, treating to a non-HDL-C goal of <100 mg/dL (LDL-C of <70 mg/dL) is considered a therapeutic option. Performed By: #### 5 8984, 50877, 4520 #### [facility] [address], [address] [place] [address] Tail Dogger: Ptier Cortes MD Triglyceride [Mass/Vol] 236 mg/dL High <150 [facility] Comment on above: Order Comment: FASTI NG:NO FASTING: NO Result Comment: If a non-fasting specimen was collected, consider repeat triglyceride testing on a fasting specimen if clinically indicated. Zaira ames al. J. of Clin. Lipidol. 2015;9:129-169. Performed By: #### 5 8984, 65293, 7600 #### [facility] [address], [address] [place] [address] Tail Dogger: Piter Cortes MD TSH+FREE T4on 08-20-2021 Free T4 [Mass/Vol] 0.9 ng/dL Normal 0.8-1.8 [facility] Comment on above: Performed By: #### 5 8984, 55359, 7600 #### [facility] [address] [facility], [address] [place] [address] Tail Dogger: Piter Cortes MD TSH Qn 1.53 m[IU]/L Normal 0.40-4.50 [facility] Comment on above: Performed By: #### 5 8984, 09405, 7280 #### [facility] [address] [place] [address], [address] [place] [address] Tail Dogger: Piter Cortes MD Vital Signs Date Time Vital Sign Value Performing Clinician Facility 03-31-2024 14:15-0400 Body height 159.6 cm Suzieaurea Dugganer PA-C Work Phone: [facility] 03-31-2024 14:15-0400 Body mass index (BMI) [Ratio] 32.27 kg/m2 Suzie Elie PA-C Work Phone: [facility] 03-31-2024 14:15-0400 Body temperature 97.9 [degF] Suzie Elie PA-C Work Phone: [facility] 03-31-2024 14:15-0400 Body weight 82.2 kg Suzie Elie PA-C Work Phone: [facility] 03-31-2024 14:15-0400 Diastolic blood pressure 81 mm[Hg] Suzie Elie PA-C Work Phone: [facility] 03-31-2024 14:15-0400 Heart rate 86 /min Suzie Elie PA-C Work Phone: [facility] 03-31-2024 14:15-0400 Respiratory rate 16 /min Suzie Elie PA-C Work Phone: [facility] 03-31-2024 14:15-0400 SaO2% (BldA) [Mass fraction] 98 % Suzie Patel PA-C Work Phone: [facility] 03-31-2024 14:15-0400 Systolic blood pressure 144 mm[Hg] Suzie Patel PA-C Work Phone: [facility] 01-16-2024 09:09-0400 Body height 165.[address] [facility] 01-16-2024 09:09-0400 Body mass index (BMI) [Ratio] 30 kg/m2 [facility] 01-16-2024 09:09-0400 Body temperature 97.8 [degF] [facility] 01-16-2024 09:09-0400 Body weight 81.[address] [facility] 01-16-2024 09:09-0400 Diastolic blood pressure 70 mm[Hg] [facility] 01-16-2024 09:09-0400 Heart rate 75 /min [facility] 01-16-2024 09:09-0400 Respiratory rate 18 /min [facility] 01-16-2024 09:09-0400 SaO2% (BldA) [Mass fraction] 99 % [facility] 01-16-2024 09:09-0400 Systolic blood pressure 157 mm[Hg] [facility] 06-19-2023 09:00-0500 Body height 160 cm Janelle Ley TRIAGE ASSISTANT-ASBESTOS SHINGLE INSPECTOR Work Phone: [facility] 06-19-2023 09:00-0500 Body mass index (BMI) [Ratio] 32.38 kg/m2 Janelle Ley TRIAGE ASSISTANT-ASBESTOS SHINGLE INSPECTOR Work Phone: [facility] 06-19-2023 09:00-0500 Body temperature 97.39 [degF] Janelle Ley TRIAGE ASSISTANT-ASBESTOS SHINGLE INSPECTOR Work Phone: [facility] 06-19-2023 09:00-0500 Body weight 82.92 kg Janelle Ley TRIAGE ASSISTANT-ASBESTOS SHINGLE INSPECTOR Work Phone: [facility] 06-19-2023 09:00-0500 Diastolic blood pressure 60 mm[Hg] Janelle BLACKASBESTOS SHINGLE INSPECTOR Work Phone: [employer] 06-19-2023 09:00-0500 Heart rate 89 /min Janelle BLACKASBESTOS SHINGLE INSPECTOR Work Phone: [employer] 06-19-2023 09:00-0500 SaO2% (BldA) [Mass fraction] 100 % Janelle BLACKASBESTOS SHINGLE INSPECTOR Work Phone: [employer] 06-19-2023 09:00-0500 Systolic blood pressure 112 mm[Hg] Janelle Ley APRN-ASBESTOS SHINGLE INSPECTOR Work Phone: [employer] 04-25-2023 10:50-0500 Body height 165.1 cm Taryn Olya Other [employer] Other 04-25-2023 10:50-0500 Body mass index (BMI) [Ratio] 29.45 kg/m2 Taryn Olya Other [employer] Other 04-25-2023 10:50-0500 Body temperature 97.8 [degF] Taryn Olya Other [employer] Other 04-25-2023 10:50-0500 Body weight 80.29 kg Taryn Olya Other [employer] Other 04-25-2023 10:50-0500 Diastolic blood pressure 73 mm[Hg] Tayrn Olya Other [employer] Other 04-25-2023 10:50-0500 Respiratory rate 18 /min Taryn Olya Other [employer] Other 04-25-2023 10:50-0500 SaO2% (BldA) [Mass fraction] 99 % Taryn Olya Other [employer] Other 04-25-2023 10:50-0500 Systolic blood pressure 146 mm[Hg] Taryn Olya Other [employer] Other 10-04-2022 11:30-0400 Body height 165.1 cm Taryn Olya Other [employer] Other 10-04-2022 11:30-0400 Body mass index (BMI) [Ratio] 31.51 kg/m2 Taryn Olya Other [employer] Other 10-04-2022 11:30-0400 Body temperature 97.7 [degF] Taryn Olya Other [employer] Other 10-04-2022 11:30-0400 Body weight 85.91 kg Taryn Olya Other [employer] Other 10-04-2022 11:30-0400 Diastolic blood pressure 73 mm[Hg] Taryn Olya Other [employer] Other 10-04-2022 11:30-0400 Respiratory rate 18 /min Taryn Olya Other [employer] Other 10-04-2022 11:30-0400 SaO2% (BldA) [Mass fraction] 96 % Taryn Olya Other [employer] Other 10-04-2022 11:30-0400 Systolic blood pressure 123 mm[Hg] Taryn Olya Other [employer] Other 08-31-2022 15:25-0400 Body height 159.6 cm Augustin Vital MD Work Phone: [facility] 08-31-2022 15:25-0400 Body temperature 97.11 [degF] Augustin Vital MD Work Phone: [facility] 08-31-2022 15:25-0400 Body weight 85.73 kg Augustin Vital MD Work Phone: [facility] 08-31-2022 15:25-0400 Diastolic blood pressure 73 mm[Hg] Augustin Vital MD Work Phone: [facility] 08-31-2022 15:25-0400 Heart rate 75 /min Augustin Vital MD Work Phone: [facility] 08-31-2022 15:25-0400 Respiratory rate 16 /min Augustin Vital MD Work Phone: [facility] 08-31-2022 15:25-0400 SaO2% (BldA) [Mass fraction] 99 % Augustin Vital MD Work Phone: [facility] 08-31-2022 15:25-0400 Systolic blood pressure 139 mm[Hg] Augustin Vital MD Work Phone: [facility] 06-22-2022 15:54-0500 Body height 159.6 cm Augustin Vital MD Work Phone: [facility] 06-22-2022 15:54-0500 Body temperature 97.7 [degF] Augustin Vital MD Work Phone: [facility] 06-22-2022 15:54-0500 Body weight 84.91 kg Augustin Vital MD Work Phone: [facility] 06-22-2022 15:54-0500 Diastolic blood pressure 82 mm[Hg] Augustin Vital MD Work Phone: [facility] 06-22-2022 15:54-0500 Heart rate 84 /min Augustin Vital MD Work Phone: [facility] 06-22-2022 15:54-0500 Respiratory rate 16 /min Augustin Vital MD Work Phone: [facility] 06-22-2022 15:54-0500 SaO2% (BldA) [Mass fraction] 98 % Augustin Vital MD Work Phone: [facility] 06-22-2022 15:54-0500 Systolic blood pressure 153 mm[Hg] Augustin Vital MD Work Phone: [facility] Encounters Encounter Date Encounter Type Care Provider Facility Start: 04-01-2024 End: 04-01-2024 Telephone encounter Muriel Aguiar RN Hematology/Oncology Comment on above: Results Start: 03-31-2024 End: 03-31-2024 Office outpatient visit 15 minutes Suzie Patel PA-C Work Phone: Hematology/Oncology Comment on above: Iron deficiency anem ia, unspecified iron deficiency anemia type (Primary Dx) Start: 03-31-2024 End: 03-31-2024 ambulatory SUZIE PATEL Facility:[facility] Start: 03-19-2024 End: 03-19-2024 Telephone encounter Suzie Patel PA-C Work Phone: Hematology/Oncology Comment on above: Lab Orders Start: 01-17-2024 End: 01-17-2024 ambulatory [facility] Start: 01-17-2024 End: 01-17-2024 ambulatory [facility] Start: 01-16-2024 End: 01-16-2024 ambulatory [facility] Work Phone: Start: 01-16-2024 End: 01-16-2024 Patient encounter procedure [facility] Work Phone: Start: 01-07-2024 End: 01-07-2024 ambulatory KRISHNA BERNAL Not Available Start: 12-11-2023 End: 12-11-2023 ambulatory [facility] Start: 11-26-2023 End: 11-26-2023 ambulatory [facility] Start: 10-10-2023 End: 10-10-2023 ambulatory [facility] Start: 10-10-2023 End: 10-10-2023 ambulatory [facility] Start: 10-08-2023 End: 10-08-2023 ambulatory KRISHNA BERNAL Not Available Start: 08-28-2023 Refill Janelle Ley TRIAGE ASSISTANT-ASBESTOS SHINGLE INSPECTOR Work Phone: [facility] Internal [facility] - Family Medicine Start: 07-17-2023 End: 07-18-2023 ambulatory JANELLE LEY [facility] Start: 07-06-2023 Bamboo flowsheet Taryn Meekan s PT Work Phone: [facility] Start: 07-06-2023 Bamboo flowsheet Taryn J Inderjit s PT Work Phone: [facility] [...] ambulatory KRISHNA BERNAL Not Available Start: 07-02-2023 Refill Jenna Rodriguez CMA [facility] Internal [facility] - Family Medicine Start: 06-29-2023 End: 06-29-2023 ambulatory TARYN BELL Not Available Start: 06-22-2023 End: 06-22-2023 ambulatory TARYN BELL Not Available Start: 06-19-2023 End: 06-19-2023 Office outpatient visit 25 minutes Janelle Ley TRIAGE ASSISTANT-ASBESTOS SHINGLE INSPECTOR Work Phone: [facility] Internal Medicine - Family Medicine Comment on above: 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 [facility]) (Primary Dx); Fatigue, unspecified type; Articulation disorder; Poor concentration Start: 06-19-2023 End: 06-19-2023 ambulatory [facility] Start: 06-15-2023 End: 06-15-2023 ambulatory TARYN Banks RAY Not Available Start: 06-08-2023 End: 06-08-2023 ambulatory TARYN J RAY Not Available Start: 06-01-2023 End: 06-01-2023 ambulatory TARYN J RAY Not Available Start: 05-25-2023 End: 05-25-2023 ambulatory TARYN Banks RAY Not Available Start: 05-23-2023 End: 05-23-2023 ambulatory KRISHNA BERNAL Not Available Start: 05-18-2023 End: 05-18-2023 ambulatory TARYN Banks RAY Not Available Start: 05-04-2023 End: 05-04-2023 ambulatory TARYN Banks RAY Not Available Start: 04-30-2023 End: 04-30-2023 ambulatory TOM Jocelyn HUERTA Not Available Start: 04-25-2023 Office outpatient vi sit 15 minutes Taryn Dobson [facility] Start: 04-25-2023 End: 04-25-2023 Departed Referred PANAMA HAT HYDRAULIC PRESS OPERATOR-C Taryn Dobson Work Phone: [facility] [place] Work Phone: Start: 04-25-2023 End: 04-25-2023 ambulatory Taryn Olya [facility] Work Phone: Start: 04-20-2023 End: 04-23-2023 ambulatory TARYN Banks RAY Not Available Start: 10-11-2022 End: 10-12-[address] AUGUSTIN VITAL Facility:[facility] Start: 10-09-2022 Telephone encounter Tabby Enamorado RN Hematology/Oncology Comment on above: Orders Start: 10-04-2022 Office outpatient vi sit 25 minutes Taryn Dobson [facility] Start: 10-04-2022 End: 10-04-2022 ambulatory Taryn Dobson [facility] Other Start: 08-31-2022 End: 08-31-2022 ambulatory Augustin Vital MD Work Phone: Hematology/Oncology Comment on above: Iron deficiency anem ia, unspecified iron deficiency anemia type (Primary Dx) Start: 08-31-2022 End: 08-31-2022 Patient encounter procedure Augustin Vital MD Work Phone: [facility] Start: 06-26-2022 Telephone encounter Silvana Thompson RN Hematology/Oncology Comment on above: Results Start: 06-22-2022 End: 06-22-2022 ambulatory Augustin Vital MD Work Phone: Hematology/Oncology Comment on above: Iron deficiency anem ia, unspecified iron deficiency anemia type (Primary Dx) Start: 06-22-2022 End: 06-22-2022 Patient encounter procedure Augustin Vital MD Work Phone: [facility] Start: 06-21-2022 Chart abstracting Augustin olivares MD Work Phone: Hematology/Oncology Start: 06-20-2022 End: 08-09-2022 ambulatory Mayank Michael MD Facility:[facility] Start: 06-02-2022 End: 06-03-[address] PEDRO RODRIGUEZ Facility:[facility] Start: 06-01-2022 End: 06-02-[address] MAYANK MICHAEL Facility:[facility] Start: 05-25-2022 End: 05-26-[address] MAYANK MICHAEL Facility:[facility] Start: 05-19-2022 End: 05-20-[address] MAYANK MICHAEL Facility:[facility] Start: 05-05-2022 End: 05-06-[address] MAYANK MICHAEL Facility:[facility] Start: 05-01-2022 End: 05-02-[address] MAYANK MICHAEL Facility:[facility] Start: 04-24-2022 End: 04-25-[address] MAYANK MICHAEL Facility:[facility] Start: 04-17-2022 End: 04-18-[address] MAYANK MICHAEL Facility:[facility] Start: 03-24-2022 End: 03-25-[address] MAYANK MICHAEL Facility:[facility] Start: 03-21-2022 End: 03-22-[address] MAYANK MICHAEL Facility:[facility] Start: 03-11-2022 End: 03-12-[address] PEDRO RODRIGUEZ Facility:[facility] Start: 03-10-2022 End: 03-11-[address] PEDRO RODRIGUEZ Facility:[facility] Start: 03-06-2022 End: 03-07-2022 ambulatory WERNER EDDYUCH Facility:[facility] Start: 03-03-2022 End: 03-04-[address] MAYANK MICHAEL Facility:[facility] Start: 02-27-2022 End: 02-28-[address] MAYANK MICHAEL Facility:[facility] Start: 01-06-2022 End: 01-07-[address] MAYANK MICHAEL Facility:[facility] Start: 12-27-2021 End: 12-28-[address] MAYANK MICHAEL Facility:[facility] Start: 11-25-2021 End: 11-26-2021 ambulatory WERNER BEJARANO Facility:[facility] Procedures Date Procedure Procedure Detail Performing Clinician Start: 10-10-2023 Lipid 1996 panel - S lida or Plasma Suzie Patel PA-C Work Phone: Start: 06-19-2023 Adult depression scr eening assessment Janelle Ley TRIAGE ASSISTANT-ASBESTOS SHINGLE INSPECTOR Work Phone: Start: 04-25-2023 Piperacillin/tazobactam Taryn Dobson Other Start: 04-03-2023 Mammography Janelle Ley TRIAGE ASSISTANT-ASBESTOS SHINGLE INSPECTOR Work Phone: Start: 10-13-2020 Colonoscopy Janelle Ley TRIAGE ASSISTANT-ASBESTOS SHINGLE INSPECTOR Work Phone: Start: 01-20-2020 Mammography Taryn Jackeline ns PT Work Phone: Start: 10-06-2013 Colonoscopy Taryn Jackeline ns PT Work Phone: Plan of Treatment Date Care Activity Detail Author Start: 10-13-2030 Screening for malign ant neoplasm of colon Colonoscopy [facility] Start: 2029 RSV Vaccine (1 - 1-d ose 75+ series) RSV Vaccine (1 - 1-dose 75+ series) [facility] Start: 10-09-2028 Lipid panel Lipid Screening [facility] Start: 03-31-2027 Diabetes Screening Diabetes Screenin g [facility] Start: 10-09-2026 Diabetes Screening Diabetes Screenin g [facility] Start: 08-31-2025 DIABETES SCREEN DIABETES SCREEN [facility] Start: 06-19-2024 Adult BMI Screening Adult BMI Screen ing [facility] Start: 06-19-2024 Depression Screening Depression Scre ening [facility] Start: 06-19-2024 Fall Risk Screening Fall Risk Screen ing [facility] Start: 06-19-2024 Tobacco Screening Tobacco Screening [facility] Start: 05-16-2024 End: 05-16-2024 Follow-up encounter 05/16/2024 10:00 AM EST Visit (SP) Office Hematology/Oncology [address] [place] [address] Suzie Patel, PA-C [address] [place] [address] follow up with labs per muriel Hematology/Oncology Comment on above: follow up with labs per muriel Start: 05-16-2024 End: 05-16-2024 Patient encounter procedure 05/16/2024 9:30 AM EST Office Visit [facility] [address] [facility] [place] [address] lab per Tigist in IM [facility] Comment on above: lab per NPowell in I [facility] Start: 04-13-2024 Adult BMI Follow Up Plan Adult BMI Follow Up Plan [facility] Start: 04-03-2024 Screening for malign ant neoplasm of breast Mammogram [facility] Start: 03-31-2024 End: 03-31-2024 Follow-up encounter 03/31/2024 2:30 PM EDT Visit (SP) Office Hematology/Oncology [address] [facility] [place] [address] Suzie Patel, PA-C [address] [facility] [place] [address] est patient follow up Hematology/Oncology Comment on above: est patient follow u p Start: 03-19-2024 End: 06-18-2024 CBC W Auto Differential panel - Blood COMPLETE BLOOD COUNT AND DIFFERENTIAL Lab Routine Iron deficiency anemia, unspecified iron deficiency anemia type Expected: 03/19/2024, Expires: 06/18/2024 [facility] Comment on above: Expected: 03/19/2024 , Expires: 06/18/2024 Start: 03-19-2024 End: 06-18-2024 Comprehensive metabolic 2000 panel - Serum or Plasma COMPREHENSIVE METABOLIC PANEL Lab Routine Iron deficiency anemia, unspecified iron deficiency anemia type Expected: 03/19/2024, Expires: 06/18/2024 [facility] Comment on above: Expected: 03/19/2024 , Expires: 06/18/2024 Start: 03-19-2024 End: 06-18-2024 Ferritin [Mass/volume] in Serum or Plasma FERRITIN Lab Routine Iron deficiency anemia, unspecified iron deficiency anemia type Expected: 03/19/2024, Expires: 06/18/2024 [facility] Comment on above: Expected: 03/19/2024 , Expires: 06/18/2024 Start: 03-19-2024 End: 06-18-2024 Iron and Iron binding capacity panel - Serum or Plasma IRON AND TIBC Lab Routine Iron deficiency anemia, unspecified iron deficiency anemia type Expected: 03/19/2024, Expires: 06/18/2024 [facility] Work Phone: Comment on above: Expected: 03/19/2024 , Expires: 06/18/2024 Start: 02-03-2024 Covid-19 Vaccine ( season) Covid-19 Vaccine ( season) [facility] Start: 02-03-2024 Influenza vaccination Influenza Vacc ine (#1) [facility] Start: 01-02-2024 End: 01-02-2024 Patient encounter procedure 01/02/2024 8:00 AM EDT Office Visit [facility] [address] [place] [id number] Jr. Krishna Trujillo, DO [address] [facility] [address] [place] [address] [facility] Start: 10-07-2023 Screening for malign ant neoplasm of colon [facility] Start: 09-29-2023 Medicare Annual Wellness Visit Medicare Annual Wellness Visit [facility] Start: 09-23-2023 DTaP,Tdap and Td Vaccines (2 - Td or Tdap) DTaP,Tdap and Td Vaccines (2 - Td or Tdap) [facility] Start: 07-19-2023 COLORECTAL CANCER SCREENING COLORECTAL CANCER SCREENING [facility] Start: 07-19-2023 FECAL OCCULT BLOOD FECAL OCCULT BLOO D [facility] Start: 07-19-2023 Screening for malign ant neoplasm of colon [facility] Start: 07-13-2023 End: 07-13-2023 ambulatory 07/13/2023 9:00 AM EST Treatment [facility] [address] [facility] [address] [place] [id number] Taryn Bell, PT [address] [place] [address] [facility] Start: 07-06-2023 End: 07-06-2023 ambulatory 07/06/2023 9:00 AM EST Treatment [facility] [address] [facility] [address] [place] [address] Taryn Bell, PT [address] [place] [address] Arrived [facility] Comment on above: Arrived Start: 06-04-2023 Advance Directive Discussion Advance Directive Discussion [facility] Start: 04-25-2023 Bacteria identified in Urine by Culture [facility] Start: 2023 COVID-19 Vaccine ( season) COVID-19 Vaccine () [facility] Start: 10-09-2022 End: 12-09-2022 CBC W Auto Differential panel - Blood CBC + DIFF Lab Routine Iron deficiency anemia, unspecified iron deficiency anemia type Expected: 10/09/2022, Expires: 12/09/2022 [facility] Work Phone: Comment on above: Expected: 10/09/2022 , Expires: 12/09/2022 Start: 10-09-2022 End: 12-09-2022 Ferritin [Mass/volume] in Serum or Plasma FERRITIN BLD Lab Routine Iron deficiency anemia, unspecified iron deficiency anemia type Expected: 10/09/2022, Expires: 12/09/2022 [facility] Work Phone: Comment on above: Expected: 10/09/2022 , Expires: 12/09/2022 Start: 10-09-2022 End: 12-09-2022 Iron and Iron binding capacity panel - Serum or Plasma IRON + TIBC Lab Routine Iron deficiency anemia, unspecified iron deficiency anemia type Expected: 10/09/2022, Expires: 12/09/2022 [facility] Work Phone: Comment on above: Expected: 10/09/2022 , Expires: 12/09/2022 Start: 08-31-2022 End: 10-31-2022 Ferritin [Mass/volume] in Serum or Plasma [facility] Work Phone: Comment on above: Expected: 08/31/2022 , Expires: 10/31/2022 Start: 08-31-2022 End: 10-31-2022 Iron and Iron binding capacity panel - Serum or Plasma [facility] Work Phone: Comment on above: Expected: 08/31/2022 , Expires: 10/31/2022 Start: 06-22-2022 End: 08-22-2022 Cobalamin (Vitamin B12) [Mass/volume] in Serum or Plasma [facility] Work Phone: Comment on above: Expected: 06/22/2022 , Expires: 08/22/2022 Start: 06-22-2022 End: 08-22-2022 Ferritin [Mass/volume] in Serum or Plasma [facility] Work Phone: Comment on above: Expected: 06/22/2022 , Expires: 08/22/2022 Start: 06-22-2022 End: 08-22-2022 Iron and Iron binding capacity panel - Serum or Plasma [facility] Work Phone: Comment on above: Expected: 06/22/2022 , Expires: 08/22/2022 Start: 06-04-2022 ADVANCE DIRECTIVE DISCUSSION ADVANCE DIRECTIVE DISCUSSION [facility] Start: 06-04-2022 DEPRESSION ASSESSMENT DEPRESSION ASS ESSMENT [facility] Start: 03-09-2022 COVID-19 VACCINE (5 - Booster for Moderna series) COVID-19 VACCINE (5 - Booster for Moderna series) [facility] Start: 01-19-2021 Screening for malign ant neoplasm of breast [facility] Start: 08-25-2020 COVID-19 VACCINE (2 - Moderna series) COVID-19 VACCINE (2 - Moderna series) [facility] Start: 2019 BONE DENSITY BONE DENSITY [facility] Start: 2019 PNEUMOCOCCAL: 65+ (1 - PCV) PNEUMOCOCCAL: 65+ (1 - PCV) [facility] Start: 10-06-2014 Screening for malign ant neoplasm of colon Colonoscopy [facility] Start: 09-23-2013 Urine microalbumin profile DTaP,Tdap,Td Vaccine (1 - Tdap) [facility] Start: 02-03-2004 SHINGRIX VACCINE (1 of 2) SHINGRIX VACCINE (1 of 2) [facility] Start: 1999 COLOGUARD (FIT-DNA) COLOGUARD (FIT-D NA) [facility] Start: 1999 Colonoscopy COLONOSCOPY [facility] Start: 1999 COLORECTAL CANCER SCREENING COLORECTAL CANCER SCREENING [facility] Start: [address] COLONOGRAPHY [facility] Start: 1999 DIABETES SCREEN DIABETES SCREEN [facility] Start: 1999 FECAL OCCULT BLOOD FECAL OCCULT BLOO D [facility] Start: 1999 LIPID SCREEN LIPID SCREEN [facility] Start: 1999 Screening for malign ant neoplasm of colon [facility] Start: 1999 SIGMOIDOSCOPY SIGMOIDOSCOPY [facility] Start: 1994 Mammography MAMMOGRAM [facility] Start: 1973 Urine microalbumin profile DTAP,TDAP,TD (1 - Tdap) [facility] Start: 02-03-1972 Anxiety Screening Anxiety Screening [facility] Start: 02-03-1972 Depression Screening Depression Scre ening [facility] Start: 02-03-1972 HEPATITIS C SCREENING HEPATITIS C [facility] Start: 02-03-1972 Hepatitis C screening Hepatitis C [facility] Start: 1954 Screening for malign ant neoplasm of colon [facility] End: 06-19-2024 Basic metabolic 2000 panel - Serum or Plasma Basic Metabolic Panel Lab Routine 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[facility]) 1 Occurrences starting 06/19/2023 until 06/19/2024 [facility] Comment on above: 1 Occurrences starti ng 06/19/2023 until 06/19/2024 Hemoglobin.gastroint est inal.lower [Presence] in Stool by Immunoassay FECAL OCCULT BLOOD TEST Lab Routine Iron deficiency anemia, unspecified iron deficiency anemia type Ordered: 06/22/2022 [facility] Work Phone: Comment on above: Ordered: 06/22/2022 End: 06-19-2024 Osmolality of Serum or Plasma Osmolality Lab Routine 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[facility]) 1 Occurrences starting 06/19/2023 until 06/19/2024 [facility] Comment on above: 1 Occurrences starti ng 06/19/2023 until 06/19/2024 End: 06-19-2024 Osmolality, urine Osmolality, urine Lab Routine 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[facility]) 1 Occurrences starting 06/19/2023 until 06/19/2024 [facility] Work [facility]: Comment on above: 1 Occurrences starti ng 06/19/2023 until 06/19/2024 End: 06-19-2024 Sodium, urine, 24 hour Sodium, urine, 24 hour Lab Routine 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[facility]) 1 Occurrences starting 06/19/2023 until 06/19/2024 [facility] Comment on above: 1 Occurrences starti ng 06/19/2023 until 06/19/2024 End: 06-19-2024 Urinalysis Urinalysis (clean catch) Lab Routine 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[facility]) 1 Occurrences starting 06/19/2023 until 06/19/2024 [facility] Comment on above: 1 Occurrences starti ng 06/19/2023 until 06/19/2024 [facility] Immunizations Immunization Date Immunization Notes Care Provider Duncan kowalski 04-13-2023 Influenza Vaccine, Quadrivalent, Adjuvanted Janelle Ley TRIAGE ASSISTANT-ASBESTOS SHINGLE INSPECTOR Work Phone: [facility] 04-13-2023 influenza virus vacc ine, unspecified formulation Suzie Patel PA-C Work Phone: [facility] 04-03-2022 Influenza Vaccine, Quadrivalent, Adjuvanted Janelle Ley TRIAGE ASSISTANT-ASBESTOS SHINGLE INSPECTOR Work Phone: [facility] 04-03-2022 influenza virus vacc ine, unspecified formulation Janelle Ley TRIAGE ASSISTANT-ASBESTOS SHINGLE INSPECTOR Work Phone: [facility] 02-21-2021 influenza, injectabl e, quadrivalent, preservative free Janelle Ley TRIAGE ASSISTANT-ASBESTOS SHINGLE INSPECTOR Work Phone: [facility] 02-16-2021 Influenza, High-dose , Quadrivalent Janelle Ley TRIAGE ASSISTANT-ASBESTOS SHINGLE INSPECTOR Work Phone: [facility] 07-29-2020 COVID-19, mRNA, LNP- S, PF, 100mcg/0.5mL Dose Janelle Ley TRIAGE ASSISTANT-ASBESTOS SHINGLE INSPECTOR Work Phone: [facility] 07-28-2020 COVID-19, mRNA, LNP- S, PF, 100mcg/0.5mL Dose Janelle Ley TRIAGE ASSISTANT-ASBESTOS SHINGLE INSPECTOR Work Phone: [facility] 02-23-2020 influenza, injectabl e, quadrivalent, preservative free Janelle Ley TRIAGE ASSISTANT-ASBESTOS SHINGLE INSPECTOR Work Phone: [facility] 02-23-2020 pneumococcal conjuga te vaccine, 13 valent Janelle Ley TRIAGE ASSISTANT-ASBESTOS SHINGLE INSPECTOR Work Phone: [facility] 02-23-2020 pneumococcal polysaccharide vaccine, 23 valent Janelle Ley TRIAGE ASSISTANT-ASBESTOS SHINGLE INSPECTOR Work Phone: [facility] 04-04-2019 pneumococcal polysaccharide vaccine, 23 valent Janelle Ley TRIAGE ASSISTANT-ASBESTOS SHINGLE INSPECTOR Work Phone: [facility] 04-04-2019 Seasonal trivalent influenza vaccine, adjuvanted, preservative free Janelle Ley TRIAGE ASSISTANT-ASBESTOS SHINGLE INSPECTOR Work Phone: [facility] 04-03-2019 Seasonal trivalent influenza vaccine, adjuvanted, preservative free Janelle Ley TRIAGE ASSISTANT-ASBESTOS SHINGLE INSPECTOR Work Phone: [facility] 04-01-2018 influenza, injectabl e, quadrivalent, preservative free Janelle Ley TRIAGE ASSISTANT-ASBESTOS SHINGLE INSPECTOR Work Phone: [facility] 03-11-2018 influenza, injectabl e, quadrivalent, preservative free Janelle Ley TRIAGE ASSISTANT-ASBESTOS SHINGLE INSPECTOR Work Phone: [facility] 03-03-2018 zoster vaccine recombinant Janelle Ley TRIAGE ASSISTANT-ASBESTOS SHINGLE INSPECTOR Work Phone: [facility] 12-21-2017 zoster vaccine recombinant Janelle Ley TRIAGE ASSISTANT-ASBESTOS SHINGLE INSPECTOR Work Phone: [facility] 06-22-2017 influenza, seasonal, injectable, preservative free Janelle Ley TRIAGE ASSISTANT-ASBESTOS SHINGLE INSPECTOR Work Phone: [facility] 07-25-2015 zoster vaccine, live Janelle sellers TRIAGE ASSISTANT-ASBESTOS SHINGLE INSPECTOR Work Phone: [facility] 09-22-2013 tetanus and diphther ia toxoids, adsorbed, preservative free, for adult use (5 Lf of tetanus toxoid and 2 Lf of diphtheria toxoid) Janelle Ley TRIAGE ASSISTANT-ASBESTOS SHINGLE INSPECTOR Work Phone: [facility] 04-18-2013 influenza, seasonal, injectable Janelle Ley TRIAGE ASSISTANT-ASBESTOS SHINGLE INSPECTOR Work Phone: [facility] 08-13-2008 haemophilus influenz ae type b conjugate and Hepatitis B vaccine Janelle Ley TRIAGE ASSISTANT-ASBESTOS SHINGLE INSPECTOR Work Phone: [facility] 11-28-2007 haemophilus influenz ae type b conjugate and Hepatitis B vaccine Janelle Ley TRIAGE ASSISTANT-ASBESTOS SHINGLE INSPECTOR Work Phone: [facility] Payers Date Payer Category Payer Private Health Insurance [id number] 2022 Self-pay [id number] 2022 Medicare [id number] 1959 Medicare [id number] 1959 Private Health Insurance [id number] 1954 Unknown [id number] 2.16.840.1.823662.3.579.2.718 1954 Unknown [id number] 2.16.840.1.820006.3.579.2.593 1954 Unknown [id number] 2.16.840.1.153159.3.579.2.593 1954 Unknown [id number] 2.16.840.1.211239.3.579.2.593 1954 Unknown [id number] 2.16.840.1.516831.3.579.2.593 1954 Unknown [id number] 2.16.840.1.714680.3.579.2.593 1954 Unknown [id number] 2.16.840.1.335883.3.579.2.593 1954 Unknown [id number] 2.16.840.1.605956.3.579.2.593 1954 Unknown [id number] 2.16.840.1.580335.3.579.2.593 1954 Unknown [id number] 2.16.840.1.279673.3.579.2.593 1954 Unknown [id number] 2.16.840.1.899693.3.579.2.593 1954 Unknown [id number] 2.16.840.1.970641.3.579.2.593 1954 Unknown [id number] 2.16.840.1.186766.3.579.2.593 1954 Unknown [id number] 2.16.840.1.923449.3.579.2.593 1954 Unknown [id number] 2.16.840.1.134074.3.579.2.593 1954 Unknown [id number] 2.16.840.1.716409.3.579.2.593 1954 Unknown [id number] 2.16.840.1.651478.3.579.2.593 1954 Unknown [id number] 2.16.840.1.803070.3.579.2.593 1954 Unknown [id number] 2.16.840.1.241859.3.579.2.593 1954 Unknown [id number] 2.16.840.1.647267.3.579.2.593 1954 Unknown [id number] 2.16.840.1.649643.3.579.2.1286 1954 Unknown [id number] 2.16.840.1.562490.3.579.2.1259 1954 Unknown [id number] 2.16.840.1.692704.3.579.2.1259 1954 Unknown [id number] 2.16.840.1.654098.3.579.2.1259 1954 Unknown [id number] 2.16.840.1.859051.3.579.2.1259 1954 Unknown [id number] 2.16.840.1.936653.3.579.2.1259 1954 Unknown [id number] 2.16.840.1.337025.3.579.2.1258 1954 Unknown [id number] 2.16.840.1.864476.3.579.2.1258 1954 Unknown [id number] 2.16.840.1.290309.3.579.2.1258 1954 Unknown [id number] 2.16.840.1.427390.3.579.2.1258 1954 Unknown [id number] 2.16.840.1.968426.3.579.2.1258 1954 Unknown [id number] 2.16.840.1.830978.3.579.2.1258 1954 Unknown [id number] 2.16.840.1.338840.3.579.2.1258 1954 Unknown [id number] 2.16.840.1.288626.3.579.2.1258 1954 Unknown [id number] 2.16.840.1.660090.3.579.2.1258 1954 Unknown [id number] 2.16.840.1.634065.3.579.2.1258 1954 Unknown [id number] 2.16.840.1.088193.3.579.2.1258 1954 Unknown [id number] 2.16.840.1.879531.3.579.2.1285 1954 Unknown [id number] 2.16.840.1.866596.3.579.2.1285 1954 Unknown [id number] 2.16.840.1.707462.3.579.2.1285 1954 Unknown [id number] 2.16.840.1.040381.3.579.2.1285 1954 Unknown [id number] 2.16.840.1.210732.3.579.2.1285 1954 Unknown [id number] 2..840.1.777756.3.579.2.1286 1954 Unknown [id number] 2.840.1.451666.3.579.2.1286 Unknown [employer]/BS [id number] Unknown [id number] 2840.1.130973.3.579.2.531 Unknown [id number] 2..840.1.406794.3.579.2.531 Social History Date Type Detail Facility Start: 06-21-2022 End: 06-22-2022 Tobacco smoking status NHIS Never smoked tobacco [facility] Start: 06-21-2022 End: 06-22-2022 Tobacco use and exposure Smokeless tobacco non-user [facility] Start: 06-21-2022 End: 08-31-2022 Alcohol intake Current drinker of alcohol (finding) [facility] Start: 06-21-2022 Alcohol Comment [facility] Start: 1955 Sex Assigned At Not on file [facility] Start: 09-28-2022 End: 03-31-2024 Sex Assigned At [facility] Start: 1955 Sex Assigned At Female F [facility] Start: 09-28-2022 End: 03-31-2024 History of Social function [facility] Do you belong to any clubs or organizations such as holiness groups, unions, fraternal or athletic groups, or school groups? No [facility] Are you now , , , , never or living with a partner? [facility] How often to you hav e a drink containing alcohol? 2-3 time sa week [facility] How many standard drinks containing alcohol do you have on a typical day? 1 or 2 [facility] How often do you hav e 6 or more drinks on 1 occasion? Never [facility] How hard is it for y ou to pay for the very basics like food, housing, medical care, and heating Not hard at all [facility] Do you feel stress - tense, restless, nervous, or anxious, or unable to sleep at night because your mind is troubled all the time - these days [OSQ] Not at all [facility] Start: 08-31-2020 Alcohol Comment [facility] Start: 12-12-2022 Education 17 [facility] Start: 12-12-2022 Alcohol Comment Alcohol: 1 or 2 drinks on typical day/monthly or less. Caffeine 1 can of soda [facility] Start: 08-16-2022 Gender identity Identifies as female gender (finding) [facility] NEGATED: Highlighted rowStart: NINF History of tobacco use Passive smoker [facility] Clinical Notes 06-21-2022 to 04-01-2024 Telephone Encounter - Muriel Aguiar RN - 04/01/2024 3:36 PM EDTTelephone Encounter - Muriel Aguiar RN - 04/01/2024 3:36 PM EDTTelephone Encounter - Muriel Aguiar RN - 04/01/2024 3:34 PM EDT Note Date & Type Note Facility 04-01-2024 Telephone encounter Note Pt aware and agreeable to plan of care. Denies any symptoms of lightheaded/dizziness/fatigue, etc. Pt transferred to [facility] to schedule repeat labs/ MM in May. Pt denies any questions, needs or concerns at this time. Muriel Aguiar RN [facility] 04-01-2024 Miscellaneous Notes Pt aware and agreeable to plan of care. Denies any symptoms of lightheaded/dizziness/fatigue, etc. Pt transferred to [facility] to schedule repeat labs/ MM in May. Pt denies any questions, needs or concerns at this time. Muriel Aguiar RN ----- Message from Suzie Patel PA-C sent at 04/01/2024 3:31 PM EDT ----- Please call the patient and advise that her transferrin saturation is surprisingly low and her ferritin is on the lower end of normal. If she is asymptomatic and not anemic, then we can hold off on IV iron and she can just continue her oral iron supplement. But I would recommend we recheck these labs in 2 months and see me back. Suzie Patel PA-C documented in this encounter [facility] 04-01-2024 Telephone encounter Note ----- Message from Suzie Patel PA-C sent at 04/01/2024 3:31 PM EDT ----- Please call the patient and advise that her transferrin saturation is surprisingly low and her ferritin is on the lower end of normal. If she is asymptomatic and not anemic, then we can hold off on IV iron and she can just continue her oral iron supplement. But I would recommend we recheck these labs in 2 months and see me back. Suzie Patel PA-C [facility] 03-31-2024 History of Presen t illness Narrative PATIENT NAME: Shauna Christensen DATE: 03/31/2024 PRIMARY CARE PHYSICIAN: Pedro Rodriguez DO Portions of this encounter note have been copied from my note from 08/31/2022 and has been updated where appropriate, and reflect my current medical decision making from today. CC: This is a 69 year old female initially referred for evaluation of iron deficiency anemia, seen for scheduled follow-up. INTERIM HISTORY: Shauna returns for follow up. Her last visit here was in 08/2022. She has remained on oral iron once a day since that time. She states that she feels well. Her energy is good. She denies any shortness of breath, bleeding, dizziness, restless less, pacophagia. Her last colonoscopy was negative in 2020. She reports that her PCP asked her to return to see us because she is severely iron deficient . Her last labs were from January 2024 and showed a normal hemoglobin of 13.2, WBC 7.1, Platelets 282, MCV 86, serum iron 138, TIBC of 413 and iron saturation of 33%. She has no complaints today and is tolerating oral iron well. MEDICATIONS: Current Outpatient Medications Medication Sig aspirin [...] metFORMIN (GLUCOPHAGE) 500 mg tablet MV with Qid-Mcbaelbl-Irgqzw (CENTRUM SILVER) 0.4 mg-300 mcg- 250 mcg [...] anxiety, depression, or other. PHYSICAL EXAM: BP 144/81 Pulse 86 Temp 36.6 C (97.9 F) (Temporal) Resp 16 Ht 159.6 cm (5' 2.84 ) Wt 82.2 kg (181 lb 3.5 oz) SpO2 98% BMI 32.27 kg/m General: Alert and oriented, no distress, pleasant and cooperative. Heart: Regular, normal S1 and S2, no murmurs, rubs, or gallops Lungs: Clear to auscultation bilaterally Abdomen: Benign Extremities: Feet/ankles without edema, posterior tibial pulses full and symmetrical LABS: Hemoglobin (g/dL) Date Value 03/31/2024 13.6 Hematocrit (%) Date Value 03/31/2024 40.3 WBC (k/uL) Date Value 03/31/2024 6.36 Platelet Count (k/uL) Date Value 03/31/2024 290 ASSESSMENT/PLAN: 1. Iron deficiency anemia - ICD9: [...] June 2022 stools for occult blood were negative. She has remained on oral iron daily since that time and today feels well and her hemoglobin remains stable at 13.6 today with normal MCV. Her iron studies are pending and if normal she could potentially stop oral iron, however the patient wishes to continue. At this time she is no longer anemic and her iron levels are pending. I recommend she continue oral iron daily. She would like to follow up with us as needed. 2. Acquired hypothyroidism - ICD9: 244.9, ICD10: E03.9 Stable on current medications, continue per PCP. 3. Arthritis - ICD9: 716.90, ICD10: M19.90 Chronic bilateral knee pain secondary to osteoarthritis. Currently the patient is scheduled undergo a right TKA February 2023. Suzie Patel PA-C I spent a total of 25 minutes on the date of the service which included preparing to see the patient, jjoj-yo-wmeu patient care, completing clinical documentation, performing a medically appropriate examination, counseling and educating the patient/family/caregiver, ordering medications, tests, or procedures, independently interpreting results (not separately reported), communicating results to the patient/family/caregiver, and care coordination (not separately reported). documented in this encounter [facility] 03-31-2024 Note HNO ID: [id number] Author: SUZIE PATEL PA-C Service: ? Author Type: Physician Spool Salvager Type: Progress Notes Filed: 03/31/2024 15:02 Note Text: PATIENT NAME: Shauna Christensen DATE: 03/31/2024 PRIMARY CARE PHYSICIAN: Pedro Rodriguez DO Portions of this encounter note have been copied from my note from 08/31/2022 and has been updated where appropriate, and reflect my current medical decision making from today. CC: This is a 69 year old female initially referred for evaluation of iron deficiency anemia, seen for scheduled follow-up. INTERIM HISTORY: Shauna returns for follow up. Her last visit here was in 08/2022. She has remained on oral iron once a day since that time. She states that she feels well. Her energy is good. She denies any shortness of breath, bleeding, dizziness, restless less, pacophagia. Her last colonoscopy was negative in 2020. She reports that her PCP asked her to return to see us because she is severely iron deficient . Her last labs were from January 2024 and showed a normal hemoglobin of 13.2, WBC 7.1, Platelets 282, MCV 86, serum iron 138, TIBC of 413 and iron saturation of 33%. She has no complaints today and is tolerating oral iron well. MEDICATIONS: Current Outpatient Medications Medication Sig aspirin [...] metFORMIN (GLUCOPHAGE) 500 mg tablet MV with Oos-Tvmrvghs-Aowtat (CENTRUM SILVER) 0.4 mg-300 mcg- 250 mcg [...] anxiety, depression, or other. PHYSICAL EXAM: BP 144/81 Pulse 86 Temp 36.6 ?C (97.9 ?F) (Temporal) Resp 16 Ht 159.6 cm (5' 2.84 ) Wt 82.2 kg (181 lb 3.5 oz) SpO2 98% BMI 32.27 kg/m? General: Alert and oriented, no distress, pleasant and cooperative. Heart: Regular, normal S1 and S2, no murmurs, rubs, or gallops Lungs: Clear to auscultation bilaterally Abdomen: Benign Extremities: Feet/ankles without edema, posterior tibial pulses full and symmetrical LABS: Hemoglobin (g/dL) Date Value 03/31/2024 13.6 Hematocrit (%) Date Value 03/31/2024 40.3 WBC (k/uL) Date Value 03/31/2024 6.36 Platelet Count (k/uL) Date Value 03/31/2024 290 ASSESSMENT/PLAN: 1. Iron deficiency anemia - ICD9: 280.9, ICD10: D50.9 (primary diagnosis) The patient was initially diagnosed w (more content not included)... [facility] 03-19-2024 Telephone encounter Note Patient has an appt on 03/31/24. Would you like labs, if so place orders. BENNETT Hallally signed by Emily Ta MA at 03/19/2024 11:39 AM EDT [facility] 03-19-2024 Miscellaneous Notes Patient has an appt on 03/31/24. Would you like labs, if so place orders. Emily Ta MA documented in this encounter [facility] 07-06-2023 History of Presen t illness Narrative Physical Therapy Physical Therapy Treatment [...] Knee extension seems consistent now. Pain today: 1-07/14 Objective Pt is amb indep without assistive [...] for inflammation and muscle soreness (prn) Goals Alf Goals Goal 1 : Patient will demonstrate [...] Pt will improve Tinetti Balance test to 28/28 to indicate no fall risk. GOAL MET LEFS score on 06/22/23: 56/80 points, 30% impairment. (40/80 on 04-03-23 and 05/04/23) Assessment: Significant improvement in pain level, ROM and strength over past 4 weeks Plan: No further PT treatment scheduled. I hereby deem this POC medically necessary. Please sign below and fax back to the number below. Physician Signature: Date: documented in this encounter [facility] 07-04-2023 History of Presen t illness Narrative Images from the original note were not included. HISTORY OF PRESENT ILLNESS: EST PT Shauna Christensen is an 68 y.o. @ female. EST PT S/P (R) TKA 02/09/23 (4.5MO)- CONTINUES PT @ [facility] [place] AND HEP- PT STATES SYMPTOMS HAVE [...] tablet 1 tablet, Oral, Every morning biotin 63946 MCG tablet 1 capsule, Every 24 hours Calcium Carbonate (CALCIUM 600 PO) Oral cholecalciferol (VITAMIN D-3) 14,000 Units, Oral, Daily ferrous sulfate 325 mg, Oral, Daily with breakfast levothyroxine (SYNTHROID, LEVOXYL) 50 mcg, Oral, Daily RT metFORMIN (Glucophage) 500 MG tablet igoohlrfcnek-erhf-nadefyjk-foli c acid (Centrum Silver, geriatric,) tablet as [...] Procedures Ambulatory referral to Physical Therapy Jean Tuckeryde Continue to increase strength and ROM Standing [...] she did a 2 mile hike at [facility] ~2 weeks ago. She has good strength and ROM, she feels she cotninues to benefit from formal physical therapy - we are recommending additional visits. We have discussed her HEP and restrictions and will see her back 6 months, when she returns from [place] to reassess her right knee ROM. May Sabillon MA documented in this encounter [facility] 06-19-2023 History of Presen t illness Narrative Subjective Patient ID: Shauna Christensen [...] weakness. Coordination: Romberg sign negative. Coordination normal. Kdtmbs-Jaty-Dxxbyh Test normal. Gait: Gait normal. Deep Tendon [...] all orders for this visit: 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[facility]) - Osmolality, urine; Future - Urinalysis (clean [...] Rodriguez 06/19/23 1214 documented in this encounter [facility] 04-25-2023 Evaluation note Encounter Date Diagnosis Assessment [...] no improvement in 2 to 3 days [facility] Other 05-09-2023 Miscellaneous Notes* Telephone Encounter - Tabby Enamorado RN - 10/10/2022 11:24 AM EDT Thank you. Tabby Enamorado RN * Telephone Encounter - Laury Chappell - 10/10/2022 7:11 AM EDT Faxed to [facility] Lab * Telephone Encounter - Tabby Enamorado RN - 10/09/2022 4:51 PM EDT PSS: Can you send the labs BRM ordered today to the [facility]. LMOV for patient to call the hospital first before heading over. * Telephone Encounter - Augustin Vital MD - 10/09/2022 4:26 PM EDT Orders placed for CBC and iron studies. Thanks, B * Telephone Encounter - Tabby Enamorado RN - 10/09/2022 4:09 PM EDT Patient states she does not see you until 01/04/23 but is just not feeling well. Would like to have some iron study lab work done. Would like to have that drawn at [facility]. If you place orders you would like, we can send to [place]. Please review and advise. ' Thanks. Tabby Enamorado RN [facility]* Encounter Date Diagnosis Assessment [...] fevers October, Hematuria, unspecified (ICD-10 - R31.9) [facility] 03-30-2023 History of Present illness Narrative* Augustin Vital MD - 08/31/2022 8:45 AM EDT PATIENT NAME: Shauna Christensen DATE: 08/31/2022 PRIMARY CARE PHYSICIAN: Pedro Rodriguez DO Portions of this encounter note have [...] metFORMIN (GLUCOPHAGE) 500 mg tablet MV with Yub-Iifdhrlp-Hrvpax (CENTRUM SILVER) 0.4 mg-300 mcg- 250 mcg [...] 2023. Augustin Vital MD [facility] Miscellaneous Notes* Telephone Encounter - Silvana Thompson RN - 06/26/2022 2:53 PM EST Informed pt of Dr Vital's message. Pt verbalized understanding and denies further needs at this time. Silvana Thompson RN * Telephone Encounter - Silvana Thompson RN - 06/26/2022 2:32 PM EST ----- [...] will see her back as scheduled. Thanks, STEPHANIE [facility] History of Present illness Narrative* Augustin Vital MD - 06/22/2022 6:45 AM EST PATIENT NAME: Shauna Christensen DATE: 06/22/2022 PRIMARY CARE PHYSICIAN: Pedro Rodriguez DO HPI: This is a 67 year [...] metFORMIN (GLUCOPHAGE) 500 mg tablet MV with Dic-Efvmwhwo-Yeakun (CENTRUM SILVER) 0.4 mg-300 mcg- 250 mcg [...] 2023. Augustin Vital MD [facility] Note [id number] [place] [facility]* Diagnosis Iron deficiency anemia, unspecified iron deficiency anemia type- Primary documented in this encounter [facility] note* Diagnosis Iron deficiency anemia, unspecified iron deficiency anemia type- Primary documented in this encounter [facility] noteNo assessment information availableThe [facility] Work Phone: Evaluation note* Diagnosis 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[facility])- Primary Diabetes insipidus Fatigue, unspecified type 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 Poor concentration Memory loss [facility] Acute pain of right knee- Primary History of total knee replacement, right [facility] Unilateral primary osteoarthritis, right knee- Primary Status post right knee replacement [facility] Diagnosis Iron deficiency anemia, unspecified iron deficiency anemia type- Primary documented in this encounter [facility] note* Diagnosis Iron deficiency anemia, unspecified iron deficiency anemia type- Primary documented in this encounter [facility] general Narrative - Reported* Type Description Date Medical History bladder leakage Medical History rosacea Medical History venous insufficiency Surgical History C section x 2 Surgical History Right and left meniscus tear Surgical History plugged duct left breast Hospitalization History see above [facility] Other History general Narrative - Reported* Type Description Date Medical History bladder leakage Medical History rosacea Medical History venous insufficiency Surgical History C section x 2 Surgical History Right and left meniscus tear Surgical History plugged duct left breast Surgical History knee replacement 02/2023 Hospitalization History see above [facility] Other InstructionsNot on filedocumented in this encounter [facility] SystemInstructionsNot on filedocumented in this encounter [facility] (narrative)* Consultation (Routine) - Pending Review Specialty Diagnoses / Procedures Referred By Clarisse flores Referred To Contact Physical Therapy Diagnoses Acute pain of right knee Procedures [place] OFFICE/OUTPATIENT NEW HIGH MDM 60 MINUTES Jr. Krishna Trujillo, DO [address] [facility] [address] [place] [address] Oneal Weston, PT [address] [facility] [address] [place] [address] Referral ID Status Reason Start Date Expiration Date Visits Requested Visits Authorized [id number] Pending Review Consult and Treat 07/04/2023 12/31/2023 [...] DATE CREATED AUTHOR AUTHOR'S ORGANIZ ATION 06/12/2022 [facility] dical Specialist DATE CREATED AUTHOR AUTHOR'S ORGANIZ ATION 08/12/2022 [facility] DATE CREATED AUTHOR AUTHOR'S ORGANIZ ATION 10/15/2022 [facility] DATE CREATED AUTHOR AUTHOR'S ORGANIZ ATION 05/09/[address] [facility] DATE CREATED AUTHOR AUTHOR'S ORGANIZ ATION 07/19/2023 [facility] DATE CREATED AUTHOR AUTHOR'S ORGANIZ ATION 01/09/2024 [facility] dical Specialists [facility] DATE CREATED AUTHOR AUTHOR'S ORGANIZ ATION 01/19/2024 [facility] DATE CREATED AUTHOR AUTHOR'S ORGANIZ ATION 01/19/2024 [facility] DATE CREATED AUTHOR AUTHOR'S ORGANIZ ATION 04/01/2024 [facility] Comments (unrecognize d section and content) In the event this informatio n is protected by the Federal Confidentiality of Alcohol and Drug Abuse Patient Records regulations: The Federal rules restrict any use of the information to criminally investigate or prosecute any alcohol or drug abuse patient.[facility] Hospital[facility] the event this information is protected by the Federal Confidentiality of Alcohol and Drug Abuse Patient Records regulations: The Federal rules restrict any use of the information to criminally investigate or prosecute any alcohol or drug abuse patient.[facility] HospitalIn the event this information is protected by the Federal Confidentiality of Alcohol and Drug Abuse Patient Records regulations: The Federal rules restrict any use of the information to criminally investigate or prosecute any alcohol or drug abuse patient.[facility] HospitalIn the event this information is protected by the Federal Confidentiality of Alcohol and Drug Abuse Patient Records regulations: The Federal rules restrict any use of the information to criminally investigate or prosecute any alcohol or drug abuse patient.[facility] HospitalIn the event this information is protected by the Federal Confidentiality of Alcohol and Drug Abuse Patient Records regulations: The Federal rules restrict any use of the information to criminally investigate or prosecute any alcohol or drug abuse patient.[facility] HospitalIn the event this information is protected by the Federal Confidentiality of Alcohol and Drug Abuse Patient Records regulations: The Federal rules restrict any use of the information to criminally investigate or prosecute any alcohol or drug abuse patient.[facility] HospitalIn the event this information is protected by the Federal Confidentiality of Alcohol and Drug Abuse Patient Records regulations: The Federal rules restrict any use of the information to criminally investigate or prosecute any alcohol or drug abuse patient.[facility] HospitalIn the event this information is protected by the Federal Confidentiality of Alcohol and Drug Abuse Patient Records regulations: The Federal rules restrict any use of the information to criminally investigate or prosecute any alcohol or drug abuse patient.[facility] Teams (unrecognized sec tion and content) Animal Care Giver Relationship Specialty Start Date End Date Pedro Rodriguez, DO [address] [place] [address] PCP - General Family Medicine 06/16/22 Gabo Pearce MD [address] [place] [address] (Fax) Family Medicine 06/21/22 Animal Care Giver Relationship Specialty Start Date End Date Pedro Rodriguez, DO [address] [place] [address] PCP - General Family Medicine 06/16/22 Gabo Pearce MD [address] [place] [address] (Fax) Family Medicine 06/21/22 Animal Care Giver Relationship Specialty Start Date End Date Pedro Rodriguez, DO [address] [place] [address] PCP - General Family Medicine 06/16/22 Gabo Pearce MD [address] [place] [address] (Fax) Family Medicine 06/21/22 Animal Care Giver Relationship Specialty Start Date End Date Pedro Rodriguez, DO [address] [address] PCP - General Family Medicine 06/16/22 Gabo Pearce MD [address] [place] [address] (Fax) Family Medicine 06/21/22 Animal Care Giver Relationship Specialty Start Date End Date Pedro Rodriguez DO [address] [place] [address] PCP - General Family Medicine 06/16/22 Gabo Pearce MD [address] [place] [address] Family Medicine 06/21/22 Team Status: Inactive Member Role Status Dates Taryn Dobson NP-C Attending Provider Active Animal Care Giver Relationship Specialty Start Date End Date Pedro Rodriguez DO [address] [place] [address] PCP - General Family Medicine 10/12/20 Animal Care Giver Relationship Specialty Start Date End Date ePdro Rodriguez DO [address], [place] [address] PCP - General Family Medicine 10/12/20 Animal Care Giver Relationship Specialty Start Date End Date Pedro Rodriguez MD [address], [place] [address] PCP - General Family Medicine 02/27/23 Animal Care Giver Relationship Specialty Start Date End Date Pedro Rodriguez MD [address] [place] [address] PCP - General Family Medicine 02/27/23 Animal Care Giver Relationship Specialty Start Date End Date Pedro Rodriguez MD [address] [place] [address] PCP - General Family Medicine 02/27/23 Team Status: Active Member Role Status Dates Pedro OjedaderrickDO gillian Primary Care Provider Active Team Status: Inactive Member Role Status Dates Pedro Lynetteezekiel Primary Care Provider Active Start: January 16, 2024 End: January 16, 2024 Deann Valentino APRN Attending Provider Active Start: January 16, 2024 End: January 16, 2024 Animal Care Giver Relationship Specialty Start Date End Date Pedro Rodriguez DO [address] [place] [address] PCP - General Family Medicine 06/16/22 Gabo Pearce MD [address] [place] [place] [address] (Fax) Family Medicine 06/21/22 Animal Care Giver Relationship Specialty Start Date End Date Pedro Rodriguez DO [address] [place] [address] PCP - General Family Medicine 06/16/22 Gabo Pearce MD [address] [place] [address] (Fax) Family Medicine 06/21/22 Animal Care Giver Relationship Specialty Start Date End Date Pedro Rodriguez DO [address] [place] [address] PCP - General Family Medicine 06/16/22 Gabo Pearce MD [address] [place] [address] Family Medicine 06/21/22 Reason for Visit (unrecogniz ed section and [...] Presence of right artificial knee joint Procedures [place] THERAPEUTIC PX 1/> AREAS EACH 15 MIN EXERCISES PHYS/OCC THERAPY SS [place] THER PX 1/> AREAS EACH 15 MIN NEUROMUSC REEDUCA [place] MANUAL THERAPY TQS 1/> REGIONS EACH 15 MINUTES Jr. Krishna Trujillo, DO [address] [facility] [address] [place] [address] Taryn Bell, PT [address] [place] [address] Referral ID Status Reason Start Date Expiration Date Visits Re quested Visits Authorized [id number] Closed 06/06/2023 02/22/2024 1 10 Reason Comments Med Refill Reason Comments Lab Orders Reason Comments Anemia Specialty Diagnoses / Procedures Referred By Contac t Referred To Contact Hematology Diagnoses Iron deficiency anemia due to dietary causes Procedures AMB REFERRAL TO HEMOPHILIA Pedro Rodriguez, DO [address] [facility] [place] [place] [address] Augustin Vital MD [address] [place] [address] [place] [address] Referral ID Status Reason Start Date Expiration Date V isits Requested Visits Authorized [id number] Outside PCP 01/28/2024 01/27/2025 1 1 Goals (unrecognized section and content) Goals may [...] BE BASED ON THE PRIMARY CLINICAL RECORDS. [facility]. provides no warranty or guarantee of the accuracy or completeness of information in this document.
--- NOTE | 2024-04-02 07:47 | MM_ITS ---
Patient Name: SHAUNA CHRISTENSEN MR#: [id number] : 1955 Exam Date: 04/02/2024 Ordering Doctor: DR LASHA RODRIGUEZ RADIOLOGY REPORT PROCEDURE: MM TOMOSYNTHESIS SCREENING BI COMPARISON: MM TOMOSYNTHESIS SCREENING BI, 03/29/2023. MG MAMM SCREEN 3D AMANDA CAD, 03/06/2022. MG MAMM SCREEN 3D AMANDA CAD, 01/21/2021. MG MAMM AMANDA SCRN W CAD DIG, 09/29/2013. INDICATIONS: Screening Calculator Name NCI Breast Cancer Risk Assessment Tool 5 Year Breast Cancer Risk 3.60% Lifetime Breast Cancer Risk 10.40% Personal Breast Cancer No Personal Ovarian Cancer No Treatments None Family Cancers Mother with hodgkins cancer at age 34. LOCATION: [facility] BREAST COMPOSITION: The breasts are heterogeneously dense,which may obscure small masses. FINDINGS: DIAGNOSTIC CATEGORY 2--BENIGN FINDING: RIGHT BREAST: No significant suspicious finding. Scattered benign-appearing calcifications are present. No significant change has occurred. LEFT BREAST: No significant suspicious finding. Scattered benign-appearing calcifications are present. No significant change has occurred. RECOMMENDATIONS: ROUTINE MAMMOGRAM AND CLINICAL EVALUATION IN 12 MONTHS. PLEASE NOTE: A NORMAL MAMMOGRAM DOES NOT EXCLUDE THE POSSIBILITY OF BREAST CANCER. A CLINICALLY SUSPICIOUS PALPABLE LUMP SHOULD BE BIOPSIED. Dictated by: Philip Best M.D. on 04/02/2024 at 09:38 Approved by: Philip Best M.D. on 04/02/2024 at 09:44
== END 2024-04-02 07:32 | disposition home or self-care (01) ==
LOC: MAMMO 07:32
PROVIDERS: PCP Family Medicine; Visit Provider Family Medicine
DX: Z12.31 Encounter for screening mammogram for malignant neoplasm of breast (principal); Z80.7 Family history of other malignant neoplasms of lymphoid, hematopoietic and related tissues
CPT/HCPCS: 77063; 77067

== ENCOUNTER 2024-12-17 09:07 | Outpatient (OUT) | payer MEDICARE, SELFPAY ==
[2024-12-17 09:30] LABS: Hematocrit 35.3 % (36.0-48.0); Hemoglobin 11.6 g/dL (12.0-16.0); Immature Granulocytes Abs Auto 0.01 10^3/uL (0.00-0.03); Immature Granulocytes Pct Auto 0.2 % (0.0-0.5); Lymphocytes Absolute Auto 1.7 10^3/uL (1.2-3.8); Mean Corpuscular HGB Conc 32.9 g/dL (29.9-35.2); Mean Corpuscular Hemoglobin 28.3 pg (26.7-34.0); Mean Corpuscular Volume 86.1 fL (81.0-99.0); Platelet Count 306 10^3/uL (150-450); Red Blood Count 4.10 10^6/uL (4.20-5.40); White Blood Count 4.8 10^3/uL (4.0-11.0)
[2024-12-17 09:38] LABS: Alanine Aminotransferase 23 U/L (14-59); Albumin Globulin Ratio 1.0; Albumin Level 3.5 g/dL (3.4-5.0); Alkaline Phosphatase 101 U/L (46-116); Anion Gap 10.4; Aspartate Amino Transferase 22 U/L (15-37); Blood Urea Nitrogen 18.0 mg/dL (7.0-18.0); Calcium 8.9 mg/dL (8.5-10.1); Carbon Dioxide 29.6 mmol/L (21.0-32.0); Chloride 108 mmol/L (98-107); Estimated GFR (African America >60 (>=60 mL/min/1.73m^2); Estimated GFR (Non-African Ame >60 (>=60 mL/min/1.73m^2); Globulin 3.4 g/dL; Glucose 94 mg/dL (74-106); Potassium 4.0 mmol/L (3.5-5.1); Sodium 144 mmol/L (136-145); Total Protein 6.9 g/dL (6.4-8.2)
[2024-12-17 10:08] LABS: Iron 32.0 ug/dL (50.0-170.0); Percent Iron Saturation 8.7 %; Total Iron Binding Capacity 368.0 ug/dL (250.0-450.0)
== END 2024-12-17 09:08 | disposition home or self-care (01) ==
LOC: LAB 09:09
PROVIDERS: PCP Family Medicine; Visit Provider Physician Assistant Medical
DX: D50.9 Iron deficiency anemia, unspecified (principal)
CPT/HCPCS: 36415; 80053; 82728; 83540; 83550; 85025

== ENCOUNTER 2025-03-20 08:44 | Outpatient (OUT) | payer MEDICARE, SELFPAY ==
--- OUTSIDE RECORDS SUMMARY | 2025-03-17 08:30 | XMS_ITS | Encounter Summary ---
Author Organization [facility] Address [address] [place] [address] Care Team Providers Care Facilities Mechanical Design Engineer Name Role Phone Pedro Herrera MD Primary Care Provider + [phone] Reason for Referral * Consultation (Routine) - Authorized Specialty Diagnoses / Procedures Referred By Contact Referred To Contact Occupational Medicine Diagnoses Lymphedema Procedures CT OFFICE/OUTPATIENT [facility] HIGH MDM 60 MINUTES Jr. Micheal Trujillo DO 112 [facility] [address] [place] [address] Phone: tel: fax: [facility] [address] [facility] fax: Referral ID Status Reason Start Date Expiration Date Visits Requested Visits Authorized [id number] Authorized Consult and Treat 03/17/2025 09/13/2025 1 1 Reason for Visit * Reason Comments Pain Encounter Details Date Type Department Care Team (Late st Contact Info) Description 03/17/2025 8:30 AM EDT Office Visit [facility] [address] [place] [phone] Jr. Micheal Trujillo DO 112 [facility] [address] [place] [address] Acute pain of right knee; Lymphedema Social History Tobacco Use Types Packs/Day Years Used Date Smoking Tobacco: Never Smokeless Tobacco: Never Alcohol Use Standard Drinks/Week Comments Yes 0 (1 standard drink = 0.6 oz pure alcohol) Alcohol: 1 or 2 drinks on typical day/monthly or less. Caffeine 1 can of soda Education Answer Date Recorded What is the highest level of school you have completed or the highest degree you have received? 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 Micheal Trujillo, DO [address] [place] [facility] [address] [place] [address] Scheduled Referrals Name Type Priority Associated Diagnoses Order Schedule Ambulatory referral to Occupational Medicine Outpatient Referral Routine Lymphedema Expected: 03/17/2025 (Approximate), Expires: 09/15/2025 documented as of this encounter Procedures Procedure Name Priority Date/Time Associated Diagnosis Comments XR KNEE 1-2 VIEWS RIGHT Routine 03/17/2025 8:50 AM EDT Acute pain of right knee documented in this encounter Results * XR knee 1 or 2 views right (03/17/2025 8:50 AM EDT) Anatomical Region Laterality Modality Lower Extremities, Knee Right [facility] Imaging Narrative 03/17/2025 9:02 AM EDT Imaging Result: AP and lateral of right knee showed surgical position and alignment of prosthetic components without evidence of loosening or wear to the femoral, tibial, or patellar components. The alignment appeared to be anatomic. There was no evidence of accelerated or asymmetric wear to the patellar button or tibial tray. There was no evidence of fracture and/or dislocation. Impression: Unremarkable right total knee arthroplasty. [facility]. Micheal Trujillo DO IMG XR PROCEDURES Final Result documented in this encounter Visit Diagnoses Diagnosis Acute pain of right knee Lymphedema Other noninfectious lymphedema documented in this encounter Care Teams Facilities Mechanical Design Engineer Relationship Specialty Start Date End Date Pedro Herrera MD [address] [facility], [place] [address] PCP - General Family Medicine 03/11/25 documented as of this encounter
--- OUTSIDE RECORDS SUMMARY | 2025-03-17 08:55 | XMS_ITS | Encounter Summary ---
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 Micheal Trujillo, DO [address] [place] [address] documented as of this encounter Procedures Procedure Name Priority Date/Time Associated Diagnosis Comments XR KNEE 1-2 VIEWS RIGHT Routine 03/17/2025 8:50 AM EDT Acute pain of right knee documented in this encounter Results * XR knee 1 or 2 views right (03/17/2025 8:50 AM EDT) Anatomical Region Laterality Modality Lower Extremities, Knee Right [facility] Imaging Narrative 03/17/2025 9:02 AM [...] dislocation. Impression: Unremarkable right total knee arthroplasty. [facility]G XR PROCEDURES Final Result documented in this encounter Visit Diagnoses Not on filedocumented in this encounter Care Teams Joint Cleaning Machine Operator Relationship Specialty Start Date End Date Pedro Herrera MD [address] [place] [address] PCP - General Family Medicine 03/11/25 documented as of this encounter
--- OUTSIDE RECORDS SUMMARY | 2025-03-20 08:51 | XMS_ITS | CCD ---
Author Organization [facility] Care Team Providers Care Tare Weigher Name Role Phone Jennifer MONROY Pedor Dunbar Primary Care Provider Ramses ANTUNEZ, Gabo Muhammad Unavailable Alec ANTUNEZ, Mayank Vasquez Attending Unavailable Mayank Michael MD, V. Admitting Unavailable FURLONG, PEDRO Ayoub Primary Care Unavailable Taryn Dobson Unavailable SEEMA, DR VILLANUEVA Consulting Unavailable FURLONG, DR PEDRO Ayoub Primary Care Unavailable SEEMA, DR VILLANUEVA Attending Unavailable SEEMA, DR VILLANUEVA Admitting Unavailable CARLEE, WERNER Admitting Unavailable CARLEE, WERNER Attending Unavailable FURLONG, DR PEDRO Ayoub Primary Care Unavailable ALEC, DR MAYANK Castillo Consulting Unavailable CARLEE, WERNER Consulting Unavailable ALEC, DR MAYANK Castillo Consulting Unavailable FURLONG, DR [...] Unavailable FURLONG, DR PEDRO Ayoub Admitting Unavailable ALEC, DR MAYANK Castillo Consulting Unavailable FURLONG, DR PEDRO Ayoub Primary Care Unavailable ALEC, DR MAYANK Castillo Attending Unavailable ALEC, DR MAYANK Castillo Admitting Unavailable CARLEE, WERNER Admitting Unavailable CARLEE, WERNER Attending Unavailable FURLONG, DR PEDRO Ayoub Primary Care Unavailable ALTON BARRERA Consulting Unavailable CARLEE, WERNER Consulting Unavailable ALEC, DR MAYANK Castillo Consulting Unavailable FURLINDANG, DR PEDRO Ayoub Primary Care Unavailable ALEC, DR MAYANK Castillo Attending Unavailable ALEC, DR MAYANK Castillo Admitting Unavailable WEST, DR MAYANK Castillo Admitting Unavailable ALEC, DR MAYANK Castillo Attending Unavailable FURLONG, DR [...] MAYANK Castillo Admcarlos Unavailable WEST, DR MAYANK Catsillo Consulting Unavailable FURLONG, DR PEDRO Ayoub Primary [...] Deluca Consulting Unavailable SCOTT Dobson Attending Provider Taryn Dobson Admitting Unavailable Taryn Dobson Attending Unavailable Olya, Taryn Attending Unavailable Taryn Dobson Admitting Unavailable Furlong Pedro ANTUNEZ Primary Care Provider PEDRO RODRIGUEZ Referring Unavailable FURLONG, PEDRO Ayoub Primary Care Unavailable FURNG, PEDRO Ayoub Referring Unavailable FURLONG, PEDRO Ayoub Primary Care Unavailable Furlong Pedro MONROY Primary Care Provider Lynetteng , Pedro Ayoub Primary Care Provider Lynetteng , Pedro Ayoub Primary Care Provider JENNIFER, PEDRO Ayoub Attending Unavailable FURLONG, PEDRO Ayoub Referring Unavailable FURLONG, PEDRO Ayoub Primary Care Unavailable FURLONG, PEDRO Ayoub Attending Unavailable FURLONG, PEDRO Ayoub Referring Unavailable FURLONG, PEDRO Ayoub Primary Care Unavailable FURLONG, PEDRO Ayoub Referring Unavailable FURLONG, PEDRO Ayoub Primary Care Unavailable Furlong Pedro ANTUNEZ Primary Care Provider Lynetteng Pedro MONROY Primary Care Provider Keith Plummer MD Attending Provider [phone] ABHYANKAR, NARCISO Referring Unavailable FURLONG, PEDRO GRETA Primary Care Unavailab le ABHYANKAR, NARCISO Referring Unavailable FURLONG, PEDRO GRETA Primary Care Unavailab le FURLONG, PEDRO GRETA Primary Care Unavailab le SUZIE PATEL Attending Unavailable FURLONG, PEDRO GRETA Referring Unavailab le ABHYANKAR, NARCISO Referring Unavailable FURLONG, PEDRO GRETA Primary Care Unavailab le FURLONG, PEDRO GRETA Primary Care Unavailab le SUZIE PATEL Attending Unavailable FURLONG, PEDRO CHRISTIANARD Referring Unavailab le ABHYANKAR, NARCISO Referring Unavailable FURLONG, PEDRO GRETA Primary Care Unavailab le FURLONG, PEDRO GRETA Primary Care Unavailab le FURLONG, PEDRO GRETA Referring Unavailab le FURLONG, PEDRO GRETA Primary Care Unavailab rossi AMANDASUZIE LUJAN Attending Unavailable FURLONG, PEDRO GRETA Referring Unavailab le FURLONG, PEDRO GRETA Primary Care Unavailab le FURLONG, PEDRO GRETA Referring Unavailab le FURLONG, PEDRO GRETA Primary Care Unavailab le FURLONG, PEDRO GRETA Referring Unavailab le FURLONG, PEDRO GRETA Primary Care Unavailab le FURLONG, PEDRO GRETA Referring Unavailab le FURLONG, PEDRO GRETA Primary Care Unavailab le FURLONG, PEDRO GRETA Primary Care Unavailab rossi AMANDA SUZIE Nacho Attending Unavailable PEDRO RODRIGUEZ Referring Unavailab PEDRO Hagan Primary Care Unavailab rossi NARCISO AGUILAR Referring Unavailable PEDRO RODRIGUEZ Primary Care Unavailab Pedro Hagan MD Primary Care Provider MURIEL SERNA Attending Eleonora TRUJILLO JR., KRISHNA Venegas Attending [place] TRUJILLO JR., KRISHNA Venegas Referring KRISHNA Boggs JR Referring UnavailPEDRO Shah Primary Care Unavailable Medications Current Medications Medication Drug Class(es) Dates Sig (Normalized) Sig (Original) amoxicillin 500 mg oral tablet (5 sources) Penicillin-class Antibacterial Start: 09-19-2023 take 4 tablets by mouth once at mealtime amoxicillin (Amoxil) 500 MG tablet Indications: S/P total knee arthroplasty, right 4 tabs PO once 30-60 mins before procedure with food 4 tablet 3 02/12/2025 Active aspirin 81 mg delayed release oral tablet (20 sources) Platelet Aggregation Inhibitor, Nonsteroidal Anti-inflammatory Drug take 1 tablet by mouth in the morning aspirin 81 MG EC tablet Take 81 mg by mouth in the morning. Active End: 10-03-2024 aspirin 81 mg chewable table t Chew 1 tablet (81 mg total) and swallow in the morning. 10/03/2024 Discontinued (Therapy completed) End: 09-17-2024 take 81 mg by mouth once daily aspirin (ASPIR-81 ORAL) Take 81 mg by mouth once daily. 09/17/2024 Discontinued (Discontinued by Patient) Comment on above: Take 81 mg by mouth once daily. atorvastatin 20 mg oral tablet (20 sources) HMG-CoA Reductase Inhibitor Start: take 1 tablet by mouth in the morning atorvastatin (LIPITOR) 20 mg tablet Take 1 tablet (20 mg total) by mouth in the morning. 90 tablet 3 05/26/2024 Active Start: 04-25-2024 take 1 tablet by lovely th in the morning atorvastatin (LIPITOR) 20 mg tablet TAKE 1 TABLET BY MOUTH IN THE MORNING 90 tablet 3 04/25/2024 Active Start: 04-17-2023 End: 05-26-2024 take 1 tablet by mouth once daily Start: 06-06-2022 take 1 tablet by lovely th in the morning atorvastatin (Lipitor) 10 MG tablet Take 1 tablet by mouth in the morning. 06/06/2022 Active Lipitor Active biotin 10 mg oral tablet (20 sources) biotin 63485 MCG tablet 1 capsule 1 (one) time each day at the same time. Active biotin 10,000 mc g capsule 1 capsule. Active Biotin Active Comment on above: 1 capsule. Calcium Carbonate (9 sources) Calcium Carbonat e (CALCIUM 600 PO) Take by mouth. Active Calcium Carbonat e (CALCIUM 600 PO) Take by mouth. 0 Active calcium citrate 950 mg oral tablet (20 sources) calcium citrate (CALCITRATE) 200 mg (950 mg) tablet Take 1 tablet (200 mg total) by mouth in the morning and 1 tablet (200 mg total) at noon and 1 tablet (200 mg total) before bedtime. Active Calcium Citrate Active Centrum Silver (5 sources) Centrum Silver A ctive cholecalciferol 0.35 mg oral capsule (20 sources) Vitamin D take 1 capsule by mouth in the morning cholecalciferol (Vitamin D-3) 350 MCG (19829 UT) capsule Take 14,000 Units by mouth in the morning. Active cholecalciferol (VITAMIN D3) 250 mcg (10,000 unit) capsule Take 1 capsule (10,000 Units total) by mouth. Active take 1 capsule by mouth once woodrow ly Cholecalciferol, Vitamin D3, 250 mcg (10,000 unit) cap Take by mouth. Takes 14,000units daily Active Comment on above: Take 10,000 Units by mouth. ferrous sulfate 325 mg oral tablet (20 sources) Start: 06-15-2022 End: 02-18-2025 take 1 tablet by mouth at mealtime ferrous sulfate 325 (65 Fe) MG tablet Take 325 mg by mouth in the morning. Take with meals. 06/15/2022 Active Start: 06-15-2022 End: 09-17-2024 take 1 tablet by mouth once daily at breakfast FEROSUL 325 mg (65 mg iron) tablet Take 1 tablet by mouth daily with breakfast. 06/15/2022 09/17/2024 Discontinued (Discontinued by Patient) End: 10-03-2024 take 1 tablet by mouth every other day ferrous sulfate 325 (65 FE) mg EC tablet Take 1 tablet (325 mg total) by mouth every other day. 10/03/2024 Discontinued (Therapy completed) take 1 tablet by lovely th once daily at breakfast ferrous sulfate 325 (65 FE) mg EC tablet Take 1 tablet (325 mg total) by mouth daily with breakfast. Active Comment on above: Take 1 tablet by lovely th daily with breakfast. Iron (5 sources) Iron Active levothyroxine sodium 0.05 mg oral tablet (20 sources) l-Thyroxine Start: 05-06-20 End: 03-05-20 take 1 tablet by mouth in the morning levothyroxine (Synthroid, Levoxyl) 50 MCG tablet Take 50 mcg by mouth in the morning. 05/06/2022 Active Levothyroxine So dium Active metFORMIN hydrochloride 500 mg oral tablet (20 sources) Biguanide Start: 06-06-2022 End: 11-05-2024 metFORMIN (Glucophage) 500 MG tablet 11/28/2022 Active metFORMIN HCl Ac tive xylnwjol-chn-TI-lycopen-lute in (CENTRUM SILVER) 0.4 mg-300 mcg- 250 mcg tablet (20 sources) xcxndrkg-nxt-LA- lycopen-lutein (CENTRUM SILVER) 0.4 mg-300 mcg- 250 mcg tablet See Admin Instructions. Active rkxeltdf-mle-CB- lycopen-lutein (CENTRUM SILVER) 0.4 mg-300 mcg- 250 mcg tablet See Admin Instructions. 0 Active pihxprtuimfr-lokx-ubfvxmde-f olic acid (Centrum Silver, geriatric,) tablet (9 sources) multivitamin-iro f-ennjmfxb-bokib acid (Centrum Silver, geriatric,) tablet as directed Orally Active multivitamin-iro o-rcqrkabj-mhmyp acid (Centrum Silver, geriatric,) tablet as directed Orally 0 Active MV with Dse-Jjhnxcaj-Hyddif (CENTRUM SILVER) 0.4 mg-300 mcg- 250 mcg tab (20 sources) MV with Min-Lyco pene-Lutein (CENTRUM SILVER) 0.4 mg-300 mcg- 250 mcg tab See Admin Instructions. Active MV with Min-Lyco pene-Lutein (CENTRUM SILVER) 0.4 mg-300 mcg- 250 mcg tab See Admin Instructions. 0 Active Comment on above: See Admin Instructio ns. nitrofurantoin, macrocrystals 25 mg / nitrofurantoin, monohydrate 75 mg oral capsule (7 sources) Nitrofuran Antibacterial Start: 3 take 1 capsule by mouth every twelve hours Macrobid 100 MG 1 cap(s) Orally bid for 5 day(s) Apr, Active 24 hr oxybutynin chloride 15 mg extended release oral tablet (20 sources) Cholinergic Muscarinic Antagonist Start: 4 take 1 tablet by mouth once daily Start: 10-20-2022 End: 01-28-2024 take 1 tablet by mouth twice daily oxybutynin XL (DITROPAN XL) 15 mg 24 hr tablet TAKE 1 TABLET BY MOUTH TWICE DAILY 180 tablet 3 01/28/2024 Active Start: 05-06-2022 oxybutynin ER (DITROPAN XL) 15 mg 24 hr Extended Rel Tab 05/06/2022 Active oxyBUTYnin Activ e Oxybutynin Activ e predniSONE 20 mg oral tablet (15 sources) Start: 01-16-2024 End: 10-03-2024 predniSONE (DELTASONE) 20 mg tablet 01/16/2024 10/03/2024 Discontinued (Therapy completed) Start: 04-24-2022 take 1 tablet by lovely every twelve hours predniSONE 20 MG 1 tablet Orally 2 times a day for 5 day(s) Apr, Not-Taking Vitamin D3 (5 sources) Vitamin D3 Activ e Completed/Discontinued Medications Medication Drug Class(es) Dates Sig (Normalized) Sig (Original) azithromycin 250 mg oral tablet (5 sources) Macrolide Antimicrobial Start: 04-24-2022 Azithromycin 250 MG 2 tablet on the first day, then 1 tablet daily for 4 days Orally Once a day for 5 day(s) Apr, Not-Taking 5 ml iron sucrose 20 mg/ml injection (5 sources) Parenteral Iron Replacement Start: 06-19-2024 End: 06-19-2024 200 mg, INTRAVENOUS, ONCE, 1 dose, On Lexy 06/19/24 at 1530, Please conduct a 30 minute post dose observation. Start: 06-13-2024 End: 06-13-2024 200 mg, INTRAVENOUS, ONCE, 1 dose, On Sun06/13/24 at 1330, Please conduct a 30 minute post dose observation. Start: 06-06-2024 End: 06-06-2024 200 mg, INTRAVENOUS, ONCE, 1 dose, On Sun06/06/24 at 1300, Please conduct a 30 minute post dose observation. Start: 05-30-2024 End: 05-30-2024 200 mg, INTRAVENOUS, ONCE, 1 dose, On Sun05/30/24 at 1000, Please conduct a 30 minute post dose observation. Start: 05-22-2024 End: 05-22-2024 200 mg, INTRAVENOUS, ONCE, 1 dose, On Lexy 05/22/24 at 1330, Please conduct a 30 minute post dose observation. iron sucrose 300 mg in NaCl 0.9% 250 mL (VENOFER) (3 sources) Start: 01-12-2025 End: 01-12-2025 300 mg, INTRAVENOUS, at 166. 67 mL/hr, Administer over 90 Minutes, ONCE, 1 dose, On Sun01/12/25 at 0930, Refrigerate Start: 01-05-2025 End: 01-05-2025 300 mg, INTRAVENOUS, at 166. 67 mL/hr, Administer over 90 Minutes, ONCE, 1 dose, On Sun01/05/25 at 1000, Refrigerate Start: 12-29-2024 End: 12-29-2024 300 mg, INTRAVENOUS, at 166. 67 mL/hr, Administer over 90 Minutes, ONCE, 1 dose, On Sun12/29/24 at 0930, Refrigerate phenazopyridine hydrochloride 200 mg oral tablet (5 sources) Start: 10-04-2022 take 1 tablet by mouth every eight hours Pyridium 200 MG 1 tablet after meals Orally Three times a day for 2 day(s) October, Not-Taking vitamin b12 0.1 mg oral tablet (20 sources) Vitamin B12 End: 09-17-2024 cyanocobalamin (VITAMIN B-12) 100 mcg tab Take 100 mcg by mouth. 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 Disorders of lipid metabolism (20 sources) Mixed hyperlipidemia; Translations: [Mixed hyperlipidemia] Onset: 08-25-2021 Chronic Essential hypertension (1 source) Hypertensive disorder Onset: 10-03-2024 Chronic Genitourinary symptoms and ill-defined conditions (20 sources) Urge incontinence of urine; Translations: [Urge incontinence] Onset: 07-21-2015 01-03-2023 Chronic Genitourinary symptoms and ill-defined conditions (9 sources) Dysuria; Translations: [Hematuria, unspecified] Onset: 04-25-2023 Episodic Malaise and fatigue (20 sources) Fatigue; Translations: [Chronic fatigue, unspecified] Onset: 06-06-2017 01-03-2023 Chronic Menopausal disorders (20 sources) Primary ovarian failure; Translations: [Other primary ovarian failure] Onset: 01-19-2020 01-03-2023 Chronic Nutritional deficiencies (20 sources) Vitamin D deficiency; Translations: [Vitamin D deficiency, unspecified] Onset: 01-20-2016 01-03-2023 Chronic Osteoarthritis (20 sources) Arthritis of right knee; Translations: [Unilateral primary osteoarthritis, right knee] Onset: 01-17-2018 01-03-2023 Chronic Other acquired deformities (20 sources) Contracture of joint of right ankle; Translations: [Contracture, right ankle] Onset: 03-01-2020 01-03-2023 Chronic Other connective tissue disease (2 sources) History of right total knee replacement; Translations: [Presence of right artificial knee joint] 07-04-2023 Chronic Other connective tissue disease (20 sources) History of total knee arthroplasty; Translations: [Presence of right artificial knee joint] Onset: 02-12-2023 02-12-2023 Chronic Other diseases of veins and lymphatics (20 sources) Lymphedema; Translations: [Lymphedema, not elsewhere classified] Onset: 01-11-2023 01-11-2023 Chronic Other diseases of veins and lymphatics (1 source) Lymphedema, not elsewhere classified; Translations: [Lymphedema, not elsewhere classified] Onset: 01-11-2023 Chronic Other endocrine disorders (1 source) Diabetes insipidus; Translations: [Diabetes insipidus] 06-19-2023 Chronic Other inflammatory condition of skin (20 sources) Rosacea; Translations: [Rosacea, unspecified] Onset: 07-21-2015 Resolved: 01-17-2024 01-03-2023 Chronic Other nervous system disorders (20 sources) Difficulty walking; Translations: [Difficulty in walking, not elsewhere classified] Onset: 12-16-2020 01-03-2023 Chronic Other nervous system disorders (20 sources) Mortons neuroma of right foot; Translations: [Lesion of plantar nerve, right lower limb] Onset: 12-18-2019 01-03-2023 Chronic Other nervous system disorders (1 source) Poor concentration; Translations: [Attention and concentration deficit] 06-19-2023 Chronic Other nutritional; endocrine; and metabolic disorders (20 sources) Insulin resistance; Translations: [Insulin resistance] Onset: 07-21-2015 01-03-2023 Chronic Other nutritional; endocrine; and metabolic disorders (20 sources) Body mass index 30+ - obesity; Translations: [Obesity, unspecified] Onset: 01-03-2023 01-03-2023 Chronic Other nutritional; endocrine; and metabolic disorders (20 sources) Hypocalcemia; Translations: [Hypocalcemia] Onset: 04-13-2023 04-13-2023 Chronic Other nutritional; endocrine; and metabolic disorders (1 source) Obesity caused by energy imbalance; Translations: [Class 1 obesity due to excess calories with serious comorbidity and body mass index (BMI) of 32.0 to 32.9 in adult] 10-03-2024 Chronic Other nutritional; endocrine; and metabolic disorders (1 source) Obesity, unspecified; Translations: [Obesity, unspecified] Onset: 04-13-2023 Chronic Other skin disorders (2 sources) Seborrheic keratosis; Translations: [Other seborrheic keratosis] 07-08-2024 Episodic Other skin disorders (2 sources) Inflamed seborrheic keratosis; Translations: [Inflamed seborrheic keratosis] 07-08-2024 Episodic Residual codes; unclassified (20 sources) Obstructive sleep apnea syndrome; Translations: [Obstructive sleep apnea (adult) (pediatric)] Onset: 09-27-2017 01-03-2023 Chronic Residual codes; unclassified (1 source) Obstructive sleep apnea (adult) (pediatric); Translations: [Obstructive sleep apnea (adult) (pediatric)] Onset: 02-07-2022 Chronic Residual codes; unclassified (1 source) Localized edema; Translations: [Localized edema] Onset: 10-03-2024 Episodic Screening and history of mental health and substance abuse codes (2 sources) Patient encounter status; Translations: [Encounter for screening for depression] 12-11-2023 Episodic Thyroid disorders (20 sources) Hypothyroidism, unspecified; Translations: [Hypothyroidism] Onset: 02-01-2021 01-03-2023 Chronic Unclassified (1 source) discuss iron Onset: 01-17-2024 Urinary tract infections (5 sources) Urinary tract infection, site not specified; Translations: [Acute cystitis with hematuria] Episodic Past or Other Problems Problem Classification Problem Date Documented Da te Episodic/Chronic Allergic reactions (1 source) Allergic contact dermatitis caused by plant material; Translations: [Allergic contact dermatitis due to plants, except food] 01-17-2024 Episodic Deficiency and other anemia (20 sources) Iron deficiency anemia; Translations: [Iron deficiency anemia, unspecified] Onset: 1 Episodic Deficiency and other anemia (5 sources) Iron deficiency anemia, unspecified; Translations: [IRON DEFICIENCY ANEMIA UNSPECIFIED] Onset: 3 Episodic Deficiency and other anemia (3 sources) Other iron deficiency anemias; Translations: [OTHER IRON DEFICIENCY ANEMIAS] Onset: 2 Episodic Deficiency and other anemia (2 sources) Iron deficiency anemia secondary to inadequate dietary iron intake; Translations: [Other iron deficiency anemias] 10-10-2023 Episodic Deficiency and other anemia (1 source) Iron deficiency anemia due to dietary causes; Translations: [Other iron deficiency anemias] 01-28-2024 Episodic Diabetes mellitus without complication (20 sources) Prediabetes; Translations: [Hyperglycemia, unspecified] Onset: 1 01-03-2023 Episodic Fluid and electrolyte disorders (4 sources) Hyperosmolality and hypernatremia; Translations: [HYPEROSMOLALITY AND HYPERNATREMIA] Onset: 2 Episodic Malaise and fatigue (1 source) Fatigue; Translations: [Other fatigue] 06-19-2023 Episodic Mood disorders (20 sources) Mood disorders Onset: 4 Resolved: 5 01-17-2024 Other aftercare (9 sources) Long-term current use of insulin; Translations: [penitentiary (current) use of insulin] Onset: 9 01-03-2023 Episodic Other bone disease and musculoskeletal deformities (20 sources) Osteopenia; Translations: [Other specified disorders of bone density and structure, unspecified site] Onset: 1 01-03-2023 Episodic Other diseases of veins and lymphatics (20 sources) Peripheral venous insufficiency; Translations: [Venous insufficiency (chronic) (peripheral)] Onset: 6 01-03-2023 Episodic Other lower respiratory disease (4 sources) Dyspnea, unspecified; Translations: [DYSPNEA UNSPECIFIED] Onset: 2 Episodic Other non-traumatic joint disorders (20 sources) Pain in right knee; Translations: [Pain in joint, lower leg] Onset: 7 Resolved: 4 07-04-2023 Episodic Other non-traumatic joint disorders (20 sources) Pain in lower limb; Translations: [Pain in unspecified knee] Onset: 7 01-03-2023 Episodic Other screening for suspected conditions (not [...] HEMATPOETC] Onset: 2 Episodic Residual codes; unclassified (20 sources) Edema of foot; Translations: [Localized edema] Onset: 1 01-03-2023 Episodic Residual codes; unclassified (9 sources) Insomnia; Translations: [Insomnia, unspecified] Onset: 1 01-03-2023 Episodic Residual codes; unclassified (20 sources) Persistent insomnia; Translations: [Insomnia, unspecified] Onset: 1 01-03-2023 Episodic Residual codes; unclassified (20 sources) Sleep disorder; Translations: [Sleep disorder, unspecified] Onset: 6 09-06-2022 Episodic Residual codes; unclassified (1 source) Postmenopausal state; Translations: [Asymptomatic menopausal state] 11-26-2023 Episodic Unclassified (20 sources) Onset: 3 Resolved: 5 04-13-2023 Varicose veins of lower extremity (4 sources) Varicose veins of bilateral lower extremities with pain; Translations: [VARICOSE VNS AMANDA LOW EXTREM W/PAIN] Onset: 2 Episodic Results Test Name Value Interpretation Reference Range Facility [facility] SHAUNA CHRISTENSEN ([id number]) 1955 F Date Time Provider Department 02/23/25 SUZIE PATEL [facility] During your visit today, we recorded the following information about you: Vivian Link 02/23/2025 10:11 AM Signed Shauna Christensen is calling today regarding Discussion about being referred to Dr Khan. She may want to see a different GI doctor. Patient has been identified by name and birthdate. Person calling: self Please return the call at [phone] KYRA Allen Natalie, RN 02/23/2025 11:22 AM Signed Pt did not like the appt with Dr Plummer. Asked if she can see a different provider. He has ordered a EGD and possible camera , if nothing is seen on EGD. We discussed that this process is typical with GI referral for her DX. Recommended she continue with process and call office to see if she can MAXIME to another provider, if possible. She was offered [facility], but declines d/t travel. She will continue as planned. Encouraged to talk to [facility], with any questions, concerns she may have. She was thankful for discussion and denies further needs from our care team at this time. Muriel Aguiar RN Allergies As of Date: 02/23/2025 (No Known Allergies) Date Reviewed: 12/29/2024 Reviewed by: Jenna Bolton, JAI - Fully Assessed Reason for Visit: Patient Question [7727] Prescriptions as of 02/23/2025 - atorvastatin (LIPITOR) 10 mg tablet - Biotin 10,000 mcg cap 1 capsule. - calcium citrate (CALCITRATE) 200 mg (950 mg) tab - Cholecalciferol, Vitamin D3, 250 mcg (10,000 unit) cap Take by mouth. Takes 14,000units daily - SYNTHROID 50 mcg tablet - metFORMIN (GLUCOPHAGE) 500 mg tablet - MV with Rxi-Rlenxtke-Orjwdm (CENTRUM SILVER) 0.4 mg-300 mcg- 250 mcg tab See Admin Instructions. - oxybutynin ER (DITROPAN XL) 15 mg 24 hr Extended Rel Tab Problem List As Of Date 02/23/2025 Noted Resolved Iron (Fe) deficiency anemia [D50.9] 05/19/2024 Encounter Status:Closed by MURIEL AGUIAR on 02/23/25 [facility] 12[facility]24 [facility] Visit (SP) Office ([place]) SHAUNA CHRISTENSEN ([id number]) 1955 F Date Time Provider Department 12/22/24 8:30 AM SUZIE PATEL During your visit today, we recorded the following information about you: Temperature Pulse Respiration Blood pressure 97.6 degrees 66/minute 16/minute 144/80 Weight 84.8 kg Suzie Patel PA-C 12/22/2024 8:48 AM Signed PATIENT NAME: Shauna Christensen DATE: 12/22/2024 PRIMARY CARE PHYSICIAN: Pedro Rodriguez DO Portions of this encounter note have been copied from my note from 09/17/2024 and has been updated where appropriate, and reflect my current medical decision making from today. CC: This is a 69 year old female initially referred for evaluation of iron deficiency anemia, seen for scheduled follow-up. INTERIM HISTORY: Shauna returns for 3 month follow up.She last received Venofer 200 mg IV x 5 doses May 2024-June 2024. Labs from OSH dated 12/17/2024, showed mild anemia with a hemoglobin 11.6, MCV 86.1, ferritin 17, serum iron low at 32, normal TIBC 368, and iron saturation of 8.7%. These are a drop since her labs here in September 2024. She denies any signs of bleeding such as black tarry stools or bright red blood in her stools. Her last colonoscopy was in October 2020 and I do not have record of an EGD. Today she reports feeling well. Denies any significant fatigue.No PICA, shortness of breath, dizziness, or leg cramping. MEDICATIONS: Current Outpatient Medications Medication Sig atorvastatin (LIPITOR) 10 mg tablet Biotin 10,000 mcg cap 1 capsule. calcium citrate (CALCITRATE) 200 mg (950 mg) tab Cholecalciferol, Vitamin D3, 250 mcg (10,000 unit) cap Take by mouth. Takes 14,000units daily SYNTHROID 50 mcg tablet metFORMIN (GLUCOPHAGE) 500 mg tablet MV with Fqc-Lohydsav-Famtgn (CENTRUM SILVER) 0.4 mg-300 mcg- 250 mcg [...] REVIEW OF SYSTEMS: CONSTITUTION: Negative for pain, weight loss, or appetite loss. EENT: Negative [...] NEUROLOGICAL: Negative for numbness/tingling, dizziness, gait disturbance, headache disturbance, tremor, hemiparesis/sensory loss, or change in mental status. MUSCULOSKELETAL: Negative for joint pain, joint swelling, or proximal muscle weakness. SKIN: Negative for hair loss, bruising, nail changes, rash, itching, pallor, or jaundice. ENDO/URO: Negative for hot flashes, cold or heat intolerance, urinary frequency, urinary hesitancy, menorrhagia, or hematuria. PSYCH: Negative for anxiety, depression, or other. PHYSICAL EXAM: BP 144/80 Pulse 66 Temp 36.4 ?C (97.6 ?F) (Temporal) Resp 16 Wt 84.8 kg (186 lb 15.2 oz) SpO2 98% BMI 33.29 kg/m? General: Alert and oriented, no distress, pleasant and cooperative. 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 Iron deficiency anemia - ICD9: 280.9, ICD10: D50.9 (primary diagnosis) The patient was initially diagnosed with iron deficiency anemia after developing a COVID infection in August (more content not included)... Normal [facility] [place] 12-22-2024 DARWIN Telephone ([facility]) SHAUNA CHRISTENSEN ([id number]) 1955 F Date Time Provider Department 12/22/24 SUZIE PATEL NCCMADI During your visit today, we recorded the following information about you: Fani Davis 12/22/2024 8:56 AM Signed Regina, Please fax records Hawk, Please follow up on this appt. Kelly Schwartz 12/22/2024 9:04 AM Signed Regina: Information ready for you. Tabby Pringle 12/22/2024 10:25 AM Signed Records faxed to [facility]. Kelly Schwartz 12/24/2024 2:48 PM Signed Called [facility] spoke with Marce. Patient is scheduled to see Dr Plummer on 02/18 @ 1:45. Kelly Martin Allergies As of Date: 12/22/2024 (No Known Allergies) Date Reviewed: 12/22/2024 Reviewed by: Suzie Patel, PA-C - Fully Assessed Reason for Visit: Future Appointment [256] Prescriptions as of 12/25/2024 - atorvastatin (LIPITOR) 10 mg tablet - Biotin 10,000 mcg cap 1 capsule. - calcium citrate (CALCITRATE) 200 mg (950 mg) tab - Cholecalciferol, Vitamin D3, 250 mcg (10,000 unit) cap Take by mouth. Takes 14,000units daily - SYNTHROID 50 mcg tablet - metFORMIN (GLUCOPHAGE) 500 mg tablet - MV with Cjv-Omhogdqg-Dtxxwu (CENTRUM SILVER) 0.4 mg-300 mcg- 250 mcg tab See Admin Instructions. - oxybutynin ER (DITROPAN XL) 15 mg 24 hr Extended Rel Tab Problem List As Of Date 12/22/2024 Noted Resolved Iron (Fe) deficiency anemia [D50.9] 05/19/2024 Encounter Status:Closed by FANI DAVIS on 12/25/24 [facility] 12-15-2024 CNPN Telephone ([employer]) SHAUNA CHRISTENSEN ([id number]) 1955 F Date Time Provider Department 12/15/24 MURIEL AGUIARBETHANY During your visit today, we recorded the following information about you: Muriel Aguiar RN 12/15/2024 2:49 PM Signed Labs faxed to [facility] to complete Sunday/Sunday this week for MM appt 12/22/24. Regina: Please watch for results [facility]18[facility] 8:31 AM Signed Labs are scanned now. Suzie Patel PA-C 12/18/2024 9:46 AM Signed She will need venofer 300 mg IV x 3 doses when she comes in to see me. Will this be authorized in time for her 12/22 appointment? If not, please move appointment. DAREN Landry Natalie, RN 12/18/2024 9:52 AM Signed VM left with MM message below. Encouraged to call back to coordinate with scheduling. Lizz/Fani: JAI Gramajo Deidre 12/23/2024 8:27 AM Signed Patient is scheduled for 12/29/24. KYRA Garcia Allergies As of Date: 12/15/2024 (No Known Allergies) Date Reviewed: 09/17/2024 Reviewed by: Suzie Patel PA-C - Fully Assessed Reason for Visit: Lab Orders [[id number]] Prescriptions as of 12/23/2024 - atorvastatin (LIPITOR) 10 mg tablet - Biotin 10,000 mcg cap 1 capsule. - calcium citrate (CALCITRATE) 200 mg (950 mg) tab - Cholecalciferol, Vitamin D3, 250 mcg (10,000 unit) cap Take by mouth. Takes 14,000units daily - SYNTHROID 50 mcg tablet - metFORMIN (GLUCOPHAGE) 500 mg tablet - MV with Ggf-Wvvnjmzr-Tharak (CENTRUM SILVER) 0.4 mg-300 mcg- 250 mcg tab See Admin Instructions. - oxybutynin ER (DITROPAN XL) 15 mg 24 hr Extended Rel Tab Problem List As Of Date 12/15/2024 Noted Resolved Iron (Fe) deficiency anemia [D50.9] 05/19/2024 Encounter Status:Closed by MURIEL AGUIAR on 12/15/24 Normal [facility] CBC W Auto Differential pane l (Bld)on 09-17-2024 Basophils (Bld) [#/Vol] 10*3/uL Normal <0.11 [facility] Comment on above: Order Comment: Speci men Type: BLOOD SPECIMENOrdering Facility: [facility] Address: [address] [place] [address] Performed By: #### 5 7021-8 ####[facility] LABCLIA [id number] [place] [address] Basophils/100 WBC (Bld) 0.3 % Normal [facility] Comment on above: Order Comment: Speci men Type: BLOOD SPECIMENOrdering Facility: [facility] Address: [address] [place] [address] Performed By: #### 5 7021-8 ####[facility] LABCLIA [id number] [place] [address] Differential cell count method Nom (Bld) Auto Normal [facility] Comment on above: Order Comment: Speci men Type: BLOOD SPECIMENOrdering Facility: [facility] Address: [address] [place] [address] Performed By: #### 5 7021-8 ####[facility] LABCLIA [id number] [place] [address] Eosinophils (Bld) [#/Vol] 0.08 10*3/uL Normal <0.46 [facility] Comment on above: Order Comment: Speci men Type: BLOOD SPECIMENOrdering Facility: [facility] Address: [address] [place] [address] Performed By: #### 5 7021-8 ####[facility] LABCLIA [id number] [place] [address] Eosinophils/100 WBC (Bld) 1.3 % Normal [facility] Comment on above: Order Comment: Speci men Type: BLOOD SPECIMENOrdering Facility: [facility] Address: [address] [place] [address] Performed By: #### 5 7021-8 ####[facility] LABCLIA [id number] [place] [address] Erythrocyte distribution width (RBC) [Ratio] 12.9 % Normal 11.5-15.0 [facility] Comment on above: Order Comment: Speci men Type: BLOOD SPECIMENOrdering Facility: [facility] Address: [address] [place] [address] Performed By: #### 5 7021-8 ####[facility] LABCLIA [id number] [place] [address] Hematocrit (Bld) [Volume fraction] 41.1 % Normal 36.0-46.0 [facility] Comment on above: Order Comment: Speci men Type: BLOOD SPECIMENOrdering Facility: [facility] Address: [address] [place] [address] Performed By: #### 5 7021-8 ####[facility] LABCLIA [id number] [place] [address] Hemoglobin (Bld) [Mass/Vol] 13.5 g/dL Normal 11.5-15.5 [facility] Comment on above: Order Comment: Speci men Type: BLOOD SPECIMENOrdering Facility: [facility] Address: [address] [place] [address] Performed By: #### 5 7021-8 ####[facility] LABCLIA [id number] [place] [address] Immature granulocytes (Bld) [#/Vol] 0.04 10*3/uL Normal <0.10 [facility] Comment on above: Order Comment: Speci men Type: BLOOD SPECIMENOrdering Facility: [facility] Address: [address] [place], [place] [address] Performed By: #### 5 7021-8 ####[facility] LABCLIA [id number] [place] [address] Immature granulocytes/100 WBC (Bld) 0.7 % Normal [facility] Comment on above: Order Comment: Speci men Type: BLOOD SPECIMENOrdering Facility: [facility] Address: [address] [place] [address] Performed By: #### 5 7021-8 ####[facility] LABCLIA [id number] [place] [address] Lymphocytes (Bld) [#/Vol] 1.69 10*3/uL Normal 1.00-4.00 [facility] Comment on above: Order Comment: Speci men Type: BLOOD SPECIMENOrdering Facility: [facility] Address: [address] [place] [address] Performed By: #### 5 7021-8 ####[facility] LABCLIA [id number] [place] [address] Lymphocytes/100 WBC (Bld) 28.3 % Normal [facility] Comment on above: Order Comment: Speci men Type: BLOOD SPECIMENOrdering Facility: [facility] Address: [address] [place] [address] Performed By: #### 5 7021-8 ####[facility] LABCLIA [id number] [place] [address] MCH (RBC) [Entitic mass] 29.4 pg Normal 26.0-34.0 [facility] Comment on above: Order Comment: Speci men Type: BLOOD SPECIMENOrdering Facility: [facility] Address: [address] [place] [address] Performed By: #### 5 7021-8 ####[facility] LABCLIA [id number] [place] [address] MCHC (RBC) [Mass/Vol] 32.8 g/dL Normal 30.5-36.0 [facility] Comment on above: Order Comment: Speci men Type: BLOOD SPECIMENOrdering Facility: [facility] Address: [address] [place] [address] Performed By: #### 5 7021-8 ####[facility] LABCLIA [id number] [place] [address] MCV (RBC) [Entitic vol] 89.5 fL Normal 80.0-100.0 [facility] Comment on above: Order Comment: Speci men Type: BLOOD SPECIMENOrdering Facility: [facility] Address: [address] [place] [address] Performed By: #### 5 7021-8 ####[facility] LABCLIA [id number] [place] [address] Monocytes (Bld) [#/Vol] 0.52 10*3/uL Normal <0.87 [facility] Comment on above: Order Comment: Speci men Type: BLOOD SPECIMENOrdering Facility: [facility] Address: [address] [place] [address] Performed By: #### 5 7021-8 ####[facility] LABCLIA [id number] [place] [address] Monocytes/100 WBC (Bld) 8.7 % Normal [facility] Comment on above: Order Comment: Speci men Type: BLOOD SPECIMENOrdering Facility: [facility] Address: [address] [place] [address] Performed By: #### 5 7021-8 ####[facility] LABCLIA [id number] [place] [address] Neutrophils (Bld) [#/Vol] 3.62 10*3/uL Normal 1.45-7.50 [facility] Comment on above: Order Comment: Speci men Type: BLOOD SPECIMENOrdering Facility: [facility] Address: [address] [place] [address] Performed By: #### 5 7021-8 ####[facility] LABCLIA [id number] [place] [address] Neutrophils/100 WBC (Bld) 60.7 % Normal [facility] Comment on above: Order Comment: Speci men Type: BLOOD SPECIMENOrdering Facility: [facility] Address: [address] [place] [address] Performed By: #### 5 7021-8 ####[facility] LABCLIA [id number] [place] [address] Nucleated RBC (Bld) [#/Vol] 10*3/uL Normal <0.01 [facility] Comment on above: Order Comment: Speci men Type: BLOOD SPECIMENOrdering Facility: [facility] Address: [address] [place] [address] Performed By: #### 5 7021-8 ####[facility] LABCLIA [id number] [place] [address] Nucleated RBC/100 WBC (Bld) [Ratio] 0.0 /100 WBC Normal [facility] Comment on above: Order Comment: Speci men Type: BLOOD SPECIMENOrdering Facility: [facility] Address: [address] [place] [address] Performed By: #### 5 7021-8 ####[facility] LABCLIA [id number] [place] [address] Platelet mean volume (Bld) [Entitic vol] 9.8 fL Normal 9.0-12.7 [facility] Comment on above: Order Comment: Speci men Type: BLOOD SPECIMENOrdering Facility: [facility] Address: [address] [place] [address] Performed By: #### 5 7021-8 ####[facility] LABCLIA [id number] [place] [address] Platelets (Bld) [#/Vol] 281 10*3/uL Normal 150-400 [facility] Comment on above: Order Comment: Speci men Type: BLOOD SPECIMENOrdering Facility: [facility] Address: [address] [place] [address] Performed By: #### 5 7021-8 ####[facility] LABIA [id number] [place] [address] RBC (Bld) [#/Vol] 4.59 10*6/uL Normal 3.90-5.20 [facility] Comment on above: Order Comment: Speci men Type: BLOOD SPECIMENOrdering Facility: [facility] Address: [address] [place], [place] [address] Performed By: #### 5 7021-8 ####[facility] LABIA [id number] [place] [address] WBC (Bld) [#/Vol] 5.97 10*3/uL Normal 3.70-11.00 [facility] Comment on above: Order Comment: Speci men Type: BLOOD SPECIMENOrdering Facility: [facility] Address: [address] [place], [place] [address] Performed By: #### 5 7021-8 ####[facility] LABIA [id number] [place] [address] CNOVSPon 09-17-2024 OVS Visit (SP) Office ([facility]) AMPAROSHAUNA Santana ([id number]) 1955 F Date Time Provider Department 09/17/24 10:30 AM SUZIE PATEL During your visit today, we recorded the following information about you: Temperature Pulse Respiration Blood pressure 97.3 degrees 63/minute 16/minute 138/79 Weight Height 85.6 kg 1.596 m Suzie Patel PA-C 09/17/2024 11:32 AM Signed PATIENT NAME: Shauna Christensen DATE: 09/17/2024 PRIMARY CARE PHYSICIAN: Pedro Rodriguez DO Portions of this encounter note have been copied from my note from 05/14/2024 and has been updated where appropriate, and reflect my current medical decision making from today. CC: This is a 69 year old female initially referred for evaluation of iron deficiency anemia, seen for scheduled follow-up. INTERIM HISTORY: Shauna returns for follow up. Last received Venofer 200 mg IV x 5 doses from 05/22-06/19/24. ]She felt better after and had good energy. She denies any bleeding or shortness of breath. Her bowels are moving normally. She has not had a colonoscopy since October 2020. MEDICATIONS: Current Outpatient Medications Medication Sig aspirin [...] metFORMIN (GLUCOPHAGE) 500 mg tablet MV with Kke-Ozlveeev-Llfdtg (CENTRUM SILVER) 0.4 mg-300 mcg- 250 mcg [...] REVIEW OF SYSTEMS: CONSTITUTION: Negative for pain, weight loss, or appetite loss. EENT: Negative [...] NEUROLOGICAL: Negative for numbness/tingling, dizziness, gait disturbance, headache disturbance, tremor, hemiparesis/sensory loss, or change in mental status. MUSCULOSKELETAL: Negative for joint pain, joint swelling, or proximal muscle weakness. SKIN: Negative for hair loss, bruising, nail changes, rash, itching, pallor, or jaundice. ENDO/URO: Negative for hot flashes, cold or heat intolerance, urinary frequency, urinary hesitancy, menorrhagia, or hematuria. PSYCH: Negative for anxiety, depression, or other. PHYSICAL EXAM: BP 138/79 Pulse 63 Temp 36.3 ?C (97.3 ?F) (Temporal) Resp 16 Ht 159.6 cm (5' 2.84 ) Wt 85.6 kg (188 lb 11.4 oz) SpO2 100% BMI 33.60 kg/m? General: Alert and oriented, no distress, pleasant and cooperative. Heart: Regular, normal S1 and S2, no murmurs, rubs, or gallops Lungs: Clear to auscultation bilaterally Extremities: Feet/ankles without edema, posterior tibial pulses full and symmetrical LABS: Hemoglobin (g/dL) Date Value 09/17/2024 13.5 Hematocrit (%) Date Value 09/17/2024 41.1 WBC (k/uL) Date Value 09/17/2024 5.97 Platelet Count (k/uL) Date Value 09/17/2024 281 ASSESSMENT/PLAN: 1. Iron deficiency anemia - ICD9: 280.9, ICD10: D50.9 (primary diagnosis) The patient was initially diagnosed with iron deficiency anemia after developing a COVID infection in August 2020. Prior to (more content not included)... Normal [facility] 09-17-2024 CNPN Telephone ([facility]) SHAUNA CHRISTENSEN ([id number]) 1955 F Date Time Provider Department 09/17/24 SUZIE PATEL [facility] During your visit today, we recorded the following information about you: Greer Erazo 09/17/2024 11:14 AM Signed Patient requested her labs in December be done at [facility] prior to follow up. Gave patient orders today. Greer Erazo Allergies As of Date: 09/17/2024 (No Known Allergies) Date Reviewed: 09/17/2024 Reviewed by: Suzie Patel, PAFrankC - Fully Assessed Reason for Visit: Lab Orders [[id number]] Prescriptions as of 09/17/2024 - atorvastatin (LIPITOR) 10 mg tablet - Biotin 10,000 mcg cap 1 capsule. - calcium citrate (CALCITRATE) 200 mg (950 mg) tab - Cholecalciferol, Vitamin D3, 250 mcg (10,000 unit) cap Take by mouth. Takes 14,000units daily - SYNTHROID 50 mcg tablet - metFORMIN (GLUCOPHAGE) 500 mg tablet - MV with Vyu-Mlvgtroz-Fbwavw (CENTRUM SILVER) 0.4 mg-300 mcg- 250 mcg tab See Admin Instructions. - oxybutynin ER (DITROPAN XL) 15 mg 24 hr Extended Rel Tab Problem List As Of Date 09/17/2024 Noted Resolved Iron (Fe) deficiency anemia [D50.9] 05/19/2024 Encounter Status:Closed by GREER ERAZO on 09/17/24 Normal [facility] Comprehensive metabolic 2000 panelon 09-17-2024 Albumin [Mass/Vol] 4.3 g/dL Normal 3.9-4.9 [facility] Comment on above: Order Comment: Speci men Type: BLOOD SPECIMENOrdering Facility: [facility] Address: [address] [place] [address] Performed By: #### 2 4323-8 ####[facility] LABCLIA [id number] [place] [address] ALP [Catalytic activity/Vol] 104 U/L Normal 34-123 [facility] Comment on above: Order Comment: Speci men Type: BLOOD SPECIMENOrdering Facility: [facility] Address: [address] [place] [address] Performed By: #### 2 4323-8 ####[facility] LABCLIA [id number] [place] [address] ALT [Catalytic activity/Vol] 19 U/L Normal 7-38 [facility] Comment on above: Order Comment: Speci men Type: BLOOD SPECIMENOrdering Facility: [facility] Address: [address] [place] [address] Performed By: #### 2 4323-8 ####[facility] LABCLIA [id number] [place] [address] Anion gap [Moles/Vol] 11 mmol/L Normal 8-15 [facility] Comment on above: Order Comment: Speci men Type: BLOOD SPECIMENOrdering Facility: [facility] Address: [address] [place] [address] Performed By: #### 2 4323-8 ####[facility] LABCLIA [id number] [place] [address] AST [Catalytic activity/Vol] 21 U/L Normal 13-35 [facility] Comment on above: Order Comment: Speci men Type: BLOOD SPECIMENOrdering Facility: [facility] Address: [address] [place] [address] Performed By: #### 2 4323-8 ####[facility] LABCLIA [id number] [place] [address] Bilirubin [Mass/Vol] 0.5 mg/dL Normal 0.2-1.3 [facility] Comment on above: Order Comment: Speci men Type: BLOOD SPECIMENOrdering Facility: [facility] Address: [address] [place] [address] Performed By: #### 2 4323-8 ####[facility] LABCLIA [id number] [place] [address] Calcium [Mass/Vol] 10.1 mg/dL Normal 8.5-10.2 [facility] Comment on above: Order Comment: Speci men Type: BLOOD SPECIMENOrdering Facility: [facility] Address: [address] [place] [address] Performed By: #### 2 4323-8 ####[facility] LABCLIA [id number] [place] [address] Chloride [Moles/Vol] 106 mmol/L Normal 98-107 [facility] Comment on above: Order Comment: Speci men Type: BLOOD SPECIMENOrdering Facility: [facility] Address: [address] [place] [address] Performed By: #### 2 4323-8 ####[facility] LABCLIA [id number] [place] [address] CO2 [Moles/Vol] 27 mmol/L Normal 22-30 [facility] Comment on above: Order Comment: Speci men Type: BLOOD SPECIMENOrdering Facility: [facility] Address: [address] [place] [address] Performed By: #### 2 4323-8 ####[facility] LABCLIA [id number] [place] [address] Creatinine [Mass/Vol] 0.83 mg/dL Normal 0.58-0.96 [facility] Comment on above: Order Comment: Speci men Type: BLOOD SPECIMENOrdering Facility: [facility] Address: [address] [place] [address] Performed By: #### 2 4323-8 ####[facility] LABCLIA [id number] [place] [address] Creatinine and Glomerular filtration rate.predicted panel (S/P/Bld) 76 mL/min/1.73m??? Normal >=60 [facility] Comment on above: Order Comment: Dior rabago Type: BLOOD SPECIMENOrdering Facility: [facility] Address: [address] [place] [address] Result Comment: Kristal mated Glomerular Filtration Rate [...] actual GFR. Performed By: #### 2 4323-8 ####[facility] LABCLIA [id number] [place] [address] Glucose [Mass/Vol] 97 mg/dL Normal 74-99 [facility] Comment on above: Order Comment: Dior rabago Type: BLOOD SPECIMENOrdering Facility: [facility] Address: [address] [place] [address] Result Comment: The [place] [employer] (ADA) provides guidance for cutoff [...] Standards of Medical Care in Diabetes 2016, [place] [employer]. Diabetes Care. 2016.39(Suppl 1). Performed By: #### 2 4323-8 ####[facility] LABCLIA [id number] [place] [address] Potassium [Moles/Vol] 4.3 mmol/L Normal 3.7-5.1 [facility] Comment on above: Order Comment: Speci men Type: BLOOD SPECIMENOrdering Facility: [facility] Address: [address] [place], [place] [address] Performed By: #### 2 4323-8 ####[facility] LABCLIA [id number] [place] [address] Protein [Mass/Vol] 6.9 g/dL Normal 6.3-8.0 [facility] Comment on above: Order Comment: Speci men Type: BLOOD SPECIMENOrdering Facility: [facility] Address: [address] [place] [address] Performed By: #### 2 4323-8 ####[facility] LABCLIA [id number] [place] [address] Sodium [Moles/Vol] 144 mmol/L Normal 136-144 [facility] Comment on above: Order Comment: Speci men Type: BLOOD SPECIMENOrdering Facility: [facility] Address: [address] [place] [address] Performed By: #### 2 4323-8 ####[facility] LABCLIA [id number] [place] [address] Urea nitrogen [Mass/Vol] 17 mg/dL Normal 7-21 [facility] Comment on above: Order Comment: Speci men Type: BLOOD SPECIMENOrdering Facility: [facility] Address: [address] [place] [address] Performed By: #### 2 4323-8 ####[facility] LABCLIA [id number] [place] [address] Ferritin SerPl-ncon 2024 Ferritin [Mass/Vol] 101.0 ng/mL Normal 14.7-205.1 [facility] Comment on above: Order Comment: Speci men Type: BLOOD SPECIMENOrdering Facility: [facility] Address: [address] [place] [address] Performed By: #### 5 0190-8, 2276-4 ####[facility] LABCLIA [id number] [address] [place] Iron and Iron binding capaci ty panelon 09-17-2024 Iron [Mass/Vol] 77 ug/dL Normal 41-186 [facility] Comment on above: Order Comment: Speci men Type: BLOOD SPECIMENOrdering Facility: [facility] Address: [address] [place] [address] Performed By: #### 5 0190-8, 2276-4 ####[facility] LABIA [id number] [address] Iron binding capacity [Mass/Vol] 330 ug/dL Normal 232-386 [facility] Comment on above: Order Comment: Speci men Type: BLOOD SPECIMENOrdering Facility: [facility] Address: [address] [place] [address] Performed By: #### 5 0190-8, 6-4 ####[facility] LABIA [id number] [address] [place] [facility] Iron/TIBC [Molar ratio] 23.3 % Normal 15.0-57.0 [facility] Comment on above: Order Comment: Speci men Type: BLOOD SPECIMENOrdering Facility: [facility] Address: [address] [place] [address] Performed By: #### 5 0190-8, 2276-4 ####[facility] LABIA [id number] [place] [id number] [facility] No Panel Informationon 07-08 [facility] 06-06-2024 CNPN Telephone (HEMTSA) SHAUNA CHRISTENSEN ([id number]) 1955 F Date Time Provider Department 06/06/24 CAROLYN OSBORN HEMTSA During your visit today, we recorded the following information about you: Carolyn Osborn RN 06/06/2024 1:51 PM Signed Shauna is currently receiving 5 doses of IV venofer, had her 3rd dose today. She continues to take her oral iron at home as well but questions if she needs to. She is constipated and prefers to stop the oral if possible. Please advise. JAI Medina Jaimee, APRN.HEATING AND BLENDING SUPERVISOR 06/06/2024 2:09 PM Signed Yes she can stop the oral while getting IV. Thanks. Carolyn Osborn RN 06/06/2024 4:20 PM Signed Shauna contacted via phone and made aware to stop oral iron. Pt voiced an understanding. Carolyn Osborn RN Allergies As of Date: 06/06/2024 (No Known Allergies) Date Reviewed: 06/06/2024 Reviewed by: Angela Rivas RN - Fully Assessed Reason for Visit: Patient Question [4487] Cmt: Oral iron Prescriptions as of 06/06/2024 - aspirin (ASPIR-81 ORAL) Take 81 mg [...] (GLUCOPHAGE) 500 mg tablet - MV with Teo-Jiftqxra-Cqpprb (CENTRUM SILVER) 0.4 mg-300 mcg- 250 mcg tab See Admin Instructions. - oxybutynin ER (DITROPAN XL) 15 mg 24 hr Extended Rel Tab Problem List As Of Date 06/06/2024 Noted Resolved Iron (Fe) deficiency anemia [D50.9] 05/19/2024 Encounter Status:Closed by CAROLYN OSBORN on 06/06/24 [facility] 05-16-2024 CNPN Telephone (HEMASA) RICHELLESHAUNA BARBER ([id number]) 1955 F Date Time Provider Department 05/16/24 MURIEL AGUIAR During your visit today, we recorded the following information about you: Muriel Aguiar, JAI 05/16/2024 12:22 PM Signed Please call and advise that her transferrin saturation remains low and she likely would benefit from iv iron if she would like ----- Message ----- From: Lab, Background User Sent: 05/15/2024 10:38 AM EST To: Suzie Patel PA-C Pt aware and would like to proceed with IV Iron, d/t fatigue. Pt will await call to schedule. She denies any additional questions, needs or concerns at this time. MM/Pharm: please order Lizz/Fani: please call to schedule JAI Gramajo Brittany 05/16/2024 12:49 PM Signed I will call patient with results and appointments will be made from there Suzie: When would you like patient to follow up next? Suzie Vogt PA-C 05/20/2024 10:55 AM Signed 3 months after her last venofer infusion DAREN Landry Brittany 05/20/2024 3:43 PM Signed Patient has been scheduled for Venofer x5 and follow up w/ Suzie in September 2024. Thanks! Greer Erazo Allergies As of Date: 05/16/2024 (No Known Allergies) Date Reviewed: 05/15/2024 Reviewed by: Emily Ta MA - Fully Assessed Reason for Visit: Appointment [186] Primary Visit Diagnosis:Iron deficiency anemia, unspecified iron deficiency anemia type [D50.9] Order(s):IRON AND TIBC [SQIRON] Order #: [id number] FUTURE COMPREHENSIVE METABOLIC PANEL [SQCMP] Order #: [id number] FUTURE COMPLETE BLOOD COUNT AND DIFFERENTIAL [SQCBCDIF] Order #: [id number] FUTURE FERRITIN [SQFERR] Order #: [id number] FUTURE Prescriptions as of 05/20/2024 - aspirin (ASPIR-81 ORAL) Take 81 mg [...] (GLUCOPHAGE) 500 mg tablet - MV with Ncn-Sizdyjkz-Fodotw (CENTRUM SILVER) 0.4 mg-300 mcg- 250 mcg tab See Admin Instructions. - oxybutynin ER (DITROPAN XL) 15 mg 24 hr Extended Rel Tab Problem List As Of Date: 05/16/2024 (None) Encounter Status:Closed by GREER ERAZO on 05/20/24 Normal [facility] CBC W Auto Differential pane l (Bld)on 05-15-2024 Basophils (Bld) [#/Vol] 0.03 10*3/uL Normal <0.11 [facility] Comment on above: Order Comment: Speci men Type: BLOOD SPECIMENOrdering Facility: [facility] Address: [address] [place] [address] Performed By: #### 5 7021-8 ####[facility] LABCLIA [id number] [place] [address] Basophils/100 WBC (Bld) 0.3 % Normal [facility] Comment on above: Order Comment: Speci men Type: BLOOD SPECIMENOrdering Facility: [facility] Address: [address] [place] [address] Performed By: #### 5 7021-8 ####[facility] LABCLIA [id number] [place] [address] Differential cell count method Nom (Bld) Auto Normal [facility] Comment on above: Order Comment: Speci men Type: BLOOD SPECIMENOrdering Facility: [facility] Address: [address] [place] [address] Performed By: #### 5 7021-8 ####[facility] LABCLIA [id number] [place] [address] Eosinophils (Bld) [#/Vol] 0.07 10*3/uL Normal <0.46 [facility] Comment on above: Order Comment: Speci men Type: BLOOD SPECIMENOrdering Facility: [facility] Address: [address] [place] [address] Performed By: #### 5 7021-8 ####[facility] LABCLIA [id number] [place] [address] Eosinophils/100 WBC (Bld) 0.8 % Normal [facility] Comment on above: Order Comment: Speci men Type: BLOOD SPECIMENOrdering Facility: [facility] Address: [address] [place] [address] Performed By: #### 5 7021-8 ####[facility] LABCLIA [id number] [place] [address] Erythrocyte distribution width (RBC) [Ratio] 13.3 % Normal 11.5-15.0 [facility] Comment on above: Order Comment: Speci men Type: BLOOD SPECIMENOrdering Facility: [facility] Address: [address] [place] [address] Performed By: #### 5 7021-8 ####[facility] LABIA [id number] [place] [address] Hematocrit (Bld) [Volume fraction] 39.4 % Normal 36.0-46.0 [facility] Comment on above: Order Comment: Speci men Type: BLOOD SPECIMENOrdering Facility: [facility] Address: [address] [place] [address] Performed By: #### 5 7021-8 ####[facility] LABCLIA [id number] [place] [address] Hemoglobin (Bld) [Mass/Vol] 13.3 g/dL Normal 11.5-15.5 [facility] Comment on above: Order Comment: Speci men Type: BLOOD SPECIMENOrdering Facility: [facility] Address: [address] [place] [address] Performed By: #### 5 7021-8 ####[facility] LABCLIA [id number] [place] [address] Immature granulocytes (Bld) [#/Vol] 0.05 10*3/uL Normal <0.10 [facility] Comment on above: Order Comment: Speci men Type: BLOOD SPECIMENOrdering Facility: [facility] Address: [address] [place] [address] Performed By: #### 5 7021-8 ####[facility] LABCLIA [id number] [place] [address] Immature granulocytes/100 WBC (Bld) 0.5 % Normal [facility] Comment on above: Order Comment: Speci men Type: BLOOD SPECIMENOrdering Facility: [facility] Address: [address] [place] [address] Performed By: #### 5 7021-8 ####[facility] LABCLIA [id number] [place] [address] Lymphocytes (Bld) [#/Vol] 1.94 10*3/uL Normal 1.00-4.00 [facility] Comment on above: Order Comment: Speci men Type: BLOOD SPECIMENOrdering Facility: [facility] Address: [address] [place] [address] Performed By: #### 5 7021-8 ####[facility] LABCLIA [id number] [place] [address] Lymphocytes/100 WBC (Bld) 21.0 % Normal [facility] Comment on above: Order Comment: Speci men Type: BLOOD SPECIMENOrdering Facility: [facility] Address: [address] [place] [address] Performed By: #### 5 7021-8 ####[facility] LABCLIA [id number] [place] [address] MCH (RBC) [Entitic mass] 29.7 pg Normal 26.0-34.0 [facility] Comment on above: Order Comment: Speci men Type: BLOOD SPECIMENOrdering Facility: [facility] Address: [address] [place] [address] Performed By: #### 5 7021-8 ####[facility] LABCLIA [id number] [place] [address] MCHC (RBC) [Mass/Vol] 33.8 g/dL Normal 30.5-36.0 [facility] Comment on above: Order Comment: Speci men Type: BLOOD SPECIMENOrdering Facility: [facility] Address: [address] [place] [address] Performed By: #### 5 7021-8 ####[facility] LABIA [id number] [place] [address] MCV (RBC) [Entitic vol] 87.9 fL Normal 80.0-100.0 [facility] Comment on above: Order Comment: Speci men Type: BLOOD SPECIMENOrdering Facility: [facility] Address: [address] [place] [address] Performed By: #### 5 7021-8 ####[facility] LABIA [id number] [place] [address] Monocytes (Bld) [#/Vol] 0.80 10*3/uL Normal <0.87 [facility] Comment on above: Order Comment: Speci men Type: BLOOD SPECIMENOrdering Facility: [facility] Address: [address] [place] [address] Performed By: #### 5 7021-8 ####[facility] LABCLIA [id number] [place] [address] Monocytes/100 WBC (Bld) 8.7 % Normal [facility] Comment on above: Order Comment: Speci men Type: BLOOD SPECIMENOrdering Facility: [facility] Address: [address] [place] [address] Performed By: #### 5 7021-8 ####[facility] LABCLIA [id number] [place] [address] Neutrophils (Bld) [#/Vol] 6.34 10*3/uL Normal 1.45-7.50 [facility] Comment on above: Order Comment: Speci men Type: BLOOD SPECIMENOrdering Facility: [facility] Address: [address] [place] [address] Performed By: #### 5 7021-8 ####[facility] LABCLIA [id number] [place] [address] Neutrophils/100 WBC (Bld) 68.7 % Normal [facility] Comment on above: Order Comment: Speci men Type: BLOOD SPECIMENOrdering Facility: [facility] Address: [address] [place] [address] Performed By: #### 5 7021-8 ####[facility] LABCLIA [id number] [place] [address] Nucleated RBC (Bld) [#/Vol] 10*3/uL Normal <0.01 [facility] Comment on above: Order Comment: Speci men Type: BLOOD SPECIMENOrdering Facility: [facility] Address: [address] [place] [address] Performed By: #### 5 7021-8 ####[facility] LABIA [id number] [place] [address] Nucleated RBC/100 WBC (Bld) [Ratio] 0.0 /100 WBC Normal [facility] Comment on above: Order Comment: Speci men Type: BLOOD SPECIMENOrdering Facility: [facility] Address: [address] [place] [address] Performed By: #### 5 7021-8 ####[facility] LABCLIA [id number] [place] [address] Platelet mean volume (Bld) [Entitic vol] 10.2 fL Normal 9.0-12.7 [facility] Comment on above: Order Comment: Speci men Type: BLOOD SPECIMENOrdering Facility: [facility] Address: [address] [place] [address] Performed By: #### 5 7021-8 ####[facility] LABCLIA [id number] [place] [address] Platelets (Bld) [#/Vol] 263 10*3/uL Normal 150-400 [facility] Comment on above: Order Comment: Speci men Type: BLOOD SPECIMENOrdering Facility: [facility] Address: [address] [place] [address] Performed By: #### 5 7021-8 ####[facility] LABCLIA [id number] [place] [address] RBC (Bld) [#/Vol] 4.48 10*6/uL Normal 3.90-5.20 [facility] Comment on above: Order Comment: Speci men Type: BLOOD SPECIMENOrdering Facility: [facility] Address: [address] [place] [address] Performed By: #### 5 7021-8 ####[facility] LABCLIA [id number] [place] [address] WBC (Bld) [#/Vol] 9.23 10*3/uL Normal 3.70-11.00 [facility] Comment on above: Order Comment: Speci men Type: BLOOD SPECIMENOrdering Facility: [facility] Address: [address] [place] [address] Performed By: #### 5 7021-8 ####[facility] LABCLIA [id number] [place] [address] CNOVSPon 05-15-2024 CNOVSP Visit (SP) Office (HEMASA) SHAUNA CHRISTENSEN ([id number]) 1955 F Date Time Provider Department 05/15/24 11:00 AM SUZIE PATEL During your visit today, we recorded the following information about you: Temperature Pulse Respiration Blood pressure 97.5 degrees 70/minute 16/minute 144/83 Weight Height 82.9 kg 1.596 m Suzie Patel PA-C 05/15/2024 11:06 AM Signed PATIENT NAME: Shauna Christensen DATE: 05/14/2024 PRIMARY CARE PHYSICIAN: Pedro Rodriguez DO Portions of this encounter note have been copied from my note from 03/31/2024 and has been updated where appropriate, and reflect my current medical decision making from today. CC: This is a 69 year old female initially referred for evaluation of iron deficiency anemia, seen for scheduled follow-up. INTERIM HISTORY: Shauna returns for follow up. Her labs in March were trending down, but she remained asymptomatic. She is here to recheck her labs. She remains on oral iron once a day and has been on this since 2022. She states that has been very tired lately. Some days she feels completely wiped out. Other days she is fine. She does note that about a year ago she had surgery on her knee and since then she has not been herself. She feels like she's had trouble getting her thoughts together and finding her words. This has been ongoing for a year. She suspects it had something to do with anesthesia. MEDICATIONS: Current Outpatient Medications Medication Sig aspirin [...] metFORMIN (GLUCOPHAGE) 500 mg tablet MV with Gxw-Wqohvqks-Obglak (CENTRUM SILVER) 0.4 mg-300 mcg- 250 mcg [...] REVIEW OF SYSTEMS: CONSTITUTION: Negative for pain, weight loss, or appetite loss. +fatigue EENT: Negative for mouth soreness, antibiotics use, [...] Negative for numbness/tingling, dizziness, gait disturbance, headache, +speech disturbance, tremor, hemiparesis/sensory loss, or change in mental status. MUSCULOSKELETAL: Negative for joint pain, joint swelling, or proximal muscle weakness. SKIN: Negative for hair loss, bruising, nail changes, rash, itching, pallor, or jaundice. ENDO/URO: Negative for hot flashes, cold or heat intolerance, urinary frequency, urinary hesitancy, menorrhagia, or hematuria. PSYCH: Negative for anxiety, depression, or other. PHYSICAL EXAM: BP 144/83 Pulse 70 Temp 36.4 ?C (97.5 ?F) (Temporal) Resp 16 Ht 159.6 cm (5' 2.84 ) Wt 82.9 kg (182 lb 12.2 oz) SpO2 99% BMI 32.54 kg/m? General: Alert and oriented, no distress, pleasant and cooperative. Heart: Regular, normal S1 and S2, no murmurs, rubs, or gallops Lungs: Clear to auscultation bilaterally Abdomen: Benign Extremities: Feet/ankles without edema, posterior tibial pulses full and symmetrical LABS: Hemoglobin (g/dL) Date Value 05/15/2024 13 (more content not included)... Normal [facility] Comprehensive metabolic 2000 panelon 05-15-2024 Albumin [Mass/Vol] 4.2 g/dL Normal 3.9-4.9 [facility] Comment on above: Order Comment: Speci men Type: BLOOD SPECIMENOrdering Facility: [facility] Address: [address] [place] [address] Performed By: #### 2 4323-8 ####[facility] LABCLIA [id number] [place] [address] ALP [Catalytic activity/Vol] 99 U/L Normal 34-123 [facility] Comment on above: Order Comment: Speci men Type: BLOOD SPECIMENOrdering Facility: [facility] Address: [address] [place] [address] Performed By: #### 2 4323-8 ####[facility] LABCLIA [id number] [place] [address] ALT [Catalytic activity/Vol] 16 U/L Normal 7-38 [facility] Comment on above: Order Comment: Speci men Type: BLOOD SPECIMENOrdering Facility: [facility] Address: [address] [place] [address] Performed By: #### 2 4323-8 ####[facility] LABCLIA [id number] [place] [address] Anion gap [Moles/Vol] 11 mmol/L Normal 8-15 [facility] Comment on above: Order Comment: Speci men Type: BLOOD SPECIMENOrdering Facility: [facility] Address: [address] [place] [address] Performed By: #### 2 4323-8 ####[facility] LABCLIA [id number] [place] [address] AST [Catalytic activity/Vol] 19 U/L Normal 13-35 [facility] Comment on above: Order Comment: Speci men Type: BLOOD SPECIMENOrdering Facility: [facility] Address: [address] [place] [address] Performed By: #### 2 4323-8 ####[facility] LABCLIA [id number] [place] [address] Bilirubin [Mass/Vol] 0.6 mg/dL Normal 0.2-1.3 [facility] Comment on above: Order Comment: Speci men Type: BLOOD SPECIMENOrdering Facility: [facility] Address: [address] [place] [address] Performed By: #### 2 4323-8 ####[facility] LABCLIA [id number] [place] [address] Calcium [Mass/Vol] 9.0 mg/dL Normal 8.5-10.2 [facility] Comment on above: Order Comment: Speci men Type: BLOOD SPECIMENOrdering Facility: [facility] Address: [address] [place] [address] Performed By: #### 2 4323-8 ####[facility] LABCLIA [id number] [place] [address] Chloride [Moles/Vol] 107 mmol/L Normal 98-107 [facility] Comment on above: Order Comment: Speci men Type: BLOOD SPECIMENOrdering Facility: [facility] Address: [address] [place] [id number] Performed By: #### 2 4323-8 ####[facility] LABCLIA [id number] [place] [address] CO2 [Moles/Vol] 25 mmol/L Normal 22-30 [facility] Comment on above: Order Comment: Speci men Type: BLOOD SPECIMENOrdering Facility: [facility] Address: [address] [place] [address] Performed By: #### 2 4323-8 ####[facility] LABCLIA [id number] [place] [address] Creatinine [Mass/Vol] 0.78 mg/dL Normal 0.58-0.96 [facility] Comment on above: Order Comment: Speci men Type: BLOOD SPECIMENOrdering Facility: [facility] Address: [address] [place] [address] Performed By: #### 2 4323-8 ####[facility] LABCLIA [id number] [place] [address] Creatinine and Glomerular filtration rate.predicted panel (S/P/Bld) 82 mL/min/1.73m??? Normal >=60 [facility] Comment on above: Order Comment: Speci men Type: BLOOD SPECIMENOrdering Facility: [facility] Address: [address] [place] [address] Result Comment: Kristal mated Glomerular Filtration Rate [...] actual GFR. Performed By: #### 2 4323-8 ####[facility] LABCLIA [id number] [place] [address] Glucose [Mass/Vol] 86 mg/dL Normal 74-99 [facility] Comment on above: Order Comment: Speci men Type: BLOOD SPECIMENOrdering Facility: [facility] Address: [address] [place] [address] Result Comment: The [place] [employer] (ADA) provides guidance for cutoff [...] Standards of Medical Care in Diabetes 2016, [place] [employer]. Diabetes Care. 2016.39(Suppl 1). Performed By: #### 2 4323-8 ####[facility] LABCLIA [id number] [place] [address] Potassium [Moles/Vol] 4.0 mmol/L Normal 3.7-5.1 [facility] Comment on above: Order Comment: Speci men Type: BLOOD SPECIMENOrdering Facility: [facility] Address: [address] [place] [address] Performed By: #### 2 4323-8 ####[facility] LABCLIA [id number] [place] [address] Protein [Mass/Vol] 6.6 g/dL Normal 6.3-8.0 [facility] Comment on above: Order Comment: Speci men Type: BLOOD SPECIMENOrdering Facility: [facility] Address: [address] [place] [address] Performed By: #### 2 4323-8 ####[facility] LABCLIA [id number] [place] [address] Sodium [Moles/Vol] 143 mmol/L Normal 136-144 [facility] Comment on above: Order Comment: Speci men Type: BLOOD SPECIMENOrdering Facility: [facility] Address: [address] [place] [address] Performed By: #### 2 4323-8 ####[facility] LABCLIA [id number] [place] [address] Urea nitrogen [Mass/Vol] 20 mg/dL Normal 7-21 [facility] Comment on above: Order Comment: Speci men Type: BLOOD SPECIMENOrdering Facility: [facility] Address: [address] [place] [address] Performed By: #### 2 4323-8 ####[facility] LABCLIA [id number] [place] [address] Fer[facility]in [facility] Ferritin [Mass/Vol] 39.1 ng/mL Normal 14.7-205.1 [facility] Comment on above: Order Comment: Speci men Type: BLOOD SPECIMENOrdering Facility: [facility] Address: [address] [place] [address] Performed By: #### 5 0190-8, 2275- ####[facility] LABCLIA [id number] [place] [address] [place] Iron and Iron binding capaci panel 05-15-2024 Iron [Mass/Vol] 46 ug/dL Normal 41-186 [facility] Comment on above: Order Comment: Speci men Type: BLOOD SPECIMENOrdering Facility: [facility] Address: [address] [place] [address] Performed By: #### 5 0190-8, 2275-09 ####[facility] LABCLIA [id number] [place] [address] [place] Iron binding capacity [Mass/Vol] 341 ug/dL Normal 232-386 [facility] Comment on above: Order Comment: Speci men Type: BLOOD SPECIMENOrdering Facility: [facility] Address: [address] [place] [address] Performed By: #### 5 0190-8, 2275- ####[facility] LABCLIA [id number] [place] [address] [place] Iron/TIBC [Molar ratio] 13.5 % Low 15.0-57.0 [facility] Comment on above: Order Comment: Speci men Type: BLOOD SPECIMENOrdering Facility: [facility] Address: [address] [place] [address] Performed By: #### 5 0190-8, 2276-4 ####[facility] LABCLIA [id number] [place] [id number] [place] CNPNon 04-01-2024 CNPN Telephone (HEMASA) SHAUNA CHRISTENSEN ([id number]) 1955 F Date Time Provider Department 04/01/24 MURIEL AGUIAR During your visit today, we recorded the following information about you: Muriel Aguiar RN 04/01/2024 3:34 PM Signed ----- Message from Suzie Patel PA-C sent [...] in 2 months and see me back. DAREN Landry Natalie, RN 04/01/2024 3:37 PM Signed Pt aware and agreeable to plan of care. Denies any symptoms of lightheaded/dizziness/ fatigue, etc. Pt transferred to [facility] to schedule repeat labs/ MM in May. Pt denies any questions, needs or concerns at this time. Muriel Aguiar RN Allergies As of Date: 04/01/2024 (No Known Allergies) Date Reviewed: 03/31/2024 Reviewed by: Suzie Patel PA-C - Fully Assessed Reason for Visit: Results [95] Prescriptions as of 04/01/2024 - aspirin (ASPIR-81 ORAL) Take 81 mg [...] (GLUCOPHAGE) 500 mg tablet - MV with Pna-Bgzinmnd-Rjrlld (CENTRUM SILVER) 0.4 mg-300 mcg- 250 mcg tab See Admin Instructions. - oxybutynin ER (DITROPAN XL) 15 mg 24 hr Extended Rel Tab Problem List As Of Date: 04/01/2024 (None) Encounter Status:Closed by MURIEL AGUIAR on 04/01/24 Normal [facility] CBC W Auto Differential pane l (Bld)on 03-31-2024 Basophils (Bld) [#/Vol] 0.03 10*3/uL Normal <0.11 [facility] Comment on above: Order Comment: Speci men Type: BLOOD SPECIMENOrdering Facility: [facility] Address: [address] [place] [address] Performed By: #### 5 7021-8 ####[facility] LABCLIA [id number] [place] [address] Basophils/100 WBC (Bld) 0.5 % Normal [facility] Comment on above: Order Comment: Speci men Type: BLOOD SPECIMENOrdering Facility: [facility] Address: [address] [place] [address] Performed By: #### 5 7021-8 ####[facility] LABCLIA [id number] [place] [address] Differential cell count method Nom (Bld) Auto Normal [facility] Comment on above: Order Comment: Speci men Type: BLOOD SPECIMENOrdering Facility: [facility] Address: [address] [place] [address] Performed By: #### 5 7021-8 ####[facility] LABCLIA [id number] [place] [address] Eosinophils (Bld) [#/Vol] 0.08 10*3/uL Normal <0.46 [facility] Comment on above: Order Comment: Speci men Type: BLOOD SPECIMENOrdering Facility: [facility] Address: [address] [place] [address] Performed By: #### 5 7021-8 ####[facility] LABCLIA [id number] [place] [address] Eosinophils/100 WBC (Bld) 1.3 % Normal [facility] Comment on above: Order Comment: Speci men Type: BLOOD SPECIMENOrdering Facility: [facility] Address: [address] [place] [address] Performed By: #### 5 7021-8 ####[facility] LABCLIA [id number] [place] [address] Erythrocyte distribution width (RBC) [Ratio] 13.8 % Normal 11.5-15.0 [facility] Comment on above: Order Comment: Speci men Type: BLOOD SPECIMENOrdering Facility: [facility] Address: [address] [place] [address] Performed By: #### 5 7021-8 ####[facility] LABCLIA [id number] [place] [address] Hematocrit (Bld) [Volume fraction] 40.3 % Normal 36.0-46.0 [facility] Comment on above: Order Comment: Speci men Type: BLOOD SPECIMENOrdering Facility: [facility] Address: [address] [place] [address] Performed By: #### 5 7021-8 ####[facility] LABCLIA [id number] [place] [address] Hemoglobin (Bld) [Mass/Vol] 13.6 g/dL Normal 11.5-15.5 [facility] Comment on above: Order Comment: Speci men Type: BLOOD SPECIMENOrdering Facility: [facility] Address: [address] [place] [address] Performed By: #### 5 7021-8 ####[facility] LABCLIA [id number] [place] [address] Immature granulocytes (Bld) [#/Vol] 0.04 10*3/uL Normal <0.10 [facility] Comment on above: Order Comment: Speci men Type: BLOOD SPECIMENOrdering Facility: [facility] Address: [address] [place] [address] Performed By: #### 5 7021-8 ####[facility] LABCLIA [id number] [place] [address] Immature granulocytes/100 WBC (Bld) 0.6 % Normal [facility] Comment on above: Order Comment: Speci men Type: BLOOD SPECIMENOrdering Facility: [facility] Address: [address] [place] [address] Performed By: #### 5 7021-8 ####[facility] LABCLIA [id number] [place] [address] Lymphocytes (Bld) [#/Vol] 1.67 10*3/uL Normal 1.00-4.00 [facility] Comment on above: Order Comment: Speci men Type: BLOOD SPECIMENOrdering Facility: [facility] Address: [address] [place] [address] Performed By: #### 5 7021-8 ####[facility] LABCLIA [id number] [place] [address] Lymphocytes/100 WBC (Bld) 26.3 % Normal [facility] Comment on above: Order Comment: Speci men Type: BLOOD SPECIMENOrdering Facility: [facility] Address: [address] [place] [address] Performed By: #### 5 7021-8 ####[facility] LABCLIA [id number] [place] [address] MCH (RBC) [Entitic mass] 29.8 pg Normal 26.0-34.0 [facility] Comment on above: Order Comment: Speci men Type: BLOOD SPECIMENOrdering Facility: [facility] Address: [address] [place] [address] Performed By: #### 5 7021-8 ####[facility] LABCLIA [id number] [place] [address] MCHC (RBC) [Mass/Vol] 33.7 g/dL Normal 30.5-36.0 [facility] Comment on above: Order Comment: Speci men Type: BLOOD SPECIMENOrdering Facility: [facility] Address: [address] [place] [address] Performed By: #### 5 7021-8 ####[facility] LABCLIA [id number] [place] [address] MCV (RBC) [Entitic vol] 88.2 fL Normal 80.0-100.0 [facility] Comment on above: Order Comment: Speci men Type: BLOOD SPECIMENOrdering Facility: [facility] Address: [address] [place] [address] Performed By: #### 5 7021-8 ####[facility] LABCLIA [id number] [place] [address] Monocytes (Bld) [#/Vol] 0.63 10*3/uL Normal <0.87 [facility] Comment on above: Order Comment: Speci men Type: BLOOD SPECIMENOrdering Facility: [facility] Address: [address] [place] [address] Performed By: #### 5 7021-8 ####[facility] LABCLIA [id number] [place] [address] Monocytes/100 WBC (Bld) 9.9 % Normal [facility] Comment on above: Order Comment: Speci men Type: BLOOD SPECIMENOrdering Facility: [facility] Address: [address] [place] [address] Performed By: #### 5 7021-8 ####[facility] LABCLIA [id number] [place] [address] Neutrophils (Bld) [#/Vol] 3.91 10*3/uL Normal 1.45-7.50 [facility] Comment on above: Order Comment: Speci men Type: BLOOD SPECIMENOrdering Facility: [facility] Address: [address] [place] [address] Performed By: #### 5 7021-8 ####[facility] LABCLIA [id number] [place] [address] Neutrophils/100 WBC (Bld) 61.4 % Normal [facility] Comment on above: Order Comment: Speci men Type: BLOOD SPECIMENOrdering Facility: [facility] Address: [address] [place] [address] Performed By: #### 5 7021-8 ####[facility] LABCLIA [id number] [place] [address] Nucleated RBC (Bld) [#/Vol] 10*3/uL Normal <0.01 [facility] Comment on above: Order Comment: Speci men Type: BLOOD SPECIMENOrdering Facility: [facility] Address: [address] [place] [address] Performed By: #### 5 7021-8 ####[facility] LABCLIA [id number] [place] [address] Nucleated RBC/100 WBC (Bld) [Ratio] 0.0 /100 WBC Normal [facility] Comment on above: Order Comment: Speci men Type: BLOOD SPECIMENOrdering Facility: [facility] Address: [address] [place] [address] Performed By: #### 5 7021-8 ####[facility] LABCLIA [id number] [place] [address] Platelet mean volume (Bld) [Entitic vol] 9.9 fL Normal 9.0-12.7 [facility] Comment on above: Order Comment: Speci men Type: BLOOD SPECIMENOrdering Facility: [facility] Address: [address] [place] [address] Performed By: #### 5 7021-8 ####[facility] LABCLIA [id number] [place] [address] Platelets (Bld) [#/Vol] 290 10*3/uL Normal 150-400 [facility] Comment on above: Order Comment: Speci men Type: BLOOD SPECIMENOrdering Facility: [facility] Address: [address] [place] [address] Performed By: #### 5 7021-8 ####[facility] LABIA [id number] [place] [address] RBC (Bld) [#/Vol] 4.57 10*6/uL Normal 3.90-5.20 [facility] Comment on above: Order Comment: Speci men Type: BLOOD SPECIMENOrdering Facility: [facility] Address: [address] [place] [address] Performed By: #### 5 7021-8 ####[facility] LABIA [id number] [place] [address] WBC (Bld) [#/Vol] 6.36 10*3/uL Normal 3.70-11.00 [facility] Comment on above: Order Comment: Speci men Type: BLOOD SPECIMENOrdering Facility: [facility] Address: [address] [place] [address] Performed By: #### 5 7021-8 ####[facility] LABIA [id number] [place] [address] CNOVSPon 03-31-2024 CNOVSP Visit (SP) Office (HEMASA) SHAUNA CHRISTENSEN ([id number]) 1955 F Date Time Provider Department 03/31/24 [...] metFORMIN (GLUCOPHAGE) 500 mg tablet MV with Fwe-Dofwcrhk-Ctoshu (CENTRUM SILVER) 0.4 mg-300 mcg- 250 mcg [...] Hemoglobin (g (more content not included)... Normal [facility] Comprehensive metabolic 2000 panelon 03-31-2024 Albumin [Mass/Vol] 4.4 g/dL Normal 3.9-4.9 [facility] Comment on above: Order Comment: Speci men Type: BLOOD SPECIMENOrdering Facility: [facility] Address: [address] [place] [address] Performed By: #### 2 4323-8 ####[facility] LABCLIA [id number] [place] [address] ALP [Catalytic activity/Vol] 96 U/L Normal 34-123 [facility] Comment on above: Order Comment: Speci men Type: BLOOD SPECIMENOrdering Facility: [facility] Address: [address] [place] [address] Performed By: #### 2 4323-8 ####[facility] LABCLIA [id number] [place] [address] ALT [Catalytic activity/Vol] 22 U/L Normal 7-38 [facility] Comment on above: Order Comment: Speci men Type: BLOOD SPECIMENOrdering Facility: [facility] Address: [address] [place] [address] Performed By: #### 2 4323-8 ####[facility] LABCLIA [id number] [place] [address] Anion gap [Moles/Vol] 10 mmol/L Normal 8-15 [facility] Comment on above: Order Comment: Speci men Type: BLOOD SPECIMENOrdering Facility: [facility] Address: [address] [place] [address] Performed By: #### 2 4323-8 ####[facility] LABCLIA [id number] [place] [address] AST [Catalytic activity/Vol] 24 U/L Normal 13-35 [facility] Comment on above: Order Comment: Speci men Type: BLOOD SPECIMENOrdering Facility: [facility] Address: [address] [place] [address] Performed By: #### 2 4323-8 ####[facility] LABCLIA [id number] [place] [address] Bilirubin [Mass/Vol] 0.5 mg/dL Normal 0.2-1.3 [facility] Comment on above: Order Comment: Speci men Type: BLOOD SPECIMENOrdering Facility: [facility] Address: [address] [place] [address] Performed By: #### 2 4323-8 ####[facility] LABCLIA [id number] [place] [address] Calcium [Mass/Vol] 9.6 mg/dL Normal 8.5-10.2 [facility] Comment on above: Order Comment: Speci men Type: BLOOD SPECIMENOrdering Facility: [facility] Address: [address] [place] [address] Performed By: #### 2 4323-8 ####[facility] LABCLIA [id number] [place] [address] Chloride [Moles/Vol] 106 mmol/L Normal 98-107 [facility] Comment on above: Order Comment: Speci men Type: BLOOD SPECIMENOrdering Facility: [facility] Address: [address] [place] [address] Performed By: #### 2 4323-8 ####[facility] LABCLIA [id number] [place] [address] CO2 [Moles/Vol] 25 mmol/L Normal 22-30 [facility] Comment on above: Order Comment: Speci men Type: BLOOD SPECIMENOrdering Facility: [facility] Address: [address] [place] [address] Performed By: #### 2 4323-8 ####[facility] LABCLIA [id number] [place] [address] Creatinine [Mass/Vol] 1.14 mg/dL High 0.58-0.96 [facility] Comment on above: Order Comment: Speci men Type: BLOOD SPECIMENOrdering Facility: [facility] Address: [address] [place] [address] Performed By: #### 2 4323-8 ####[facility] LABCLIA [id number] [place] [address] Creatinine and Glomerular filtration rate.predicted panel (S/P/Bld) 52 mL/min/1.73m??? Low >=60 [facility] Comment on above: Order Comment: Speci men Type: BLOOD SPECIMENOrdering Facility: [facility] Address: [address] [place] [address] Result Comment: Kristal mated Glomerular Filtration Rate [...] actual GFR. Performed By: #### 2 4323-8 ####[facility] LABCLIA [id number] [place] [address] Glucose [Mass/Vol] 98 mg/dL Normal 74-99 [facility] Comment on above: Order Comment: Speci men Type: BLOOD SPECIMENOrdering Facility: [facility] Address: [address] [place] [id number] Result Comment: The [place] [employer] (ADA) provides guidance for cutoff [...] Standards of Medical Care in Diabetes 2016, [place] [employer]. Diabetes Care. 2016.39(Suppl 1). Performed By: #### 2 4323-8 ####[facility] LABCLIA [id number] [place] [address] Potassium [Moles/Vol] 4.4 mmol/L Normal 3.7-5.1 [facility] Comment on above: Order Comment: Speci men Type: BLOOD SPECIMENOrdering Facility: [facility] Address: [address] [place] [address] Performed By: #### 2 4323-8 ####[facility] LABCLIA [id number] [place] [address] Protein [Mass/Vol] 7.1 g/dL Normal 6.3-8.0 [facility] Comment on above: Order Comment: Speci men Type: BLOOD SPECIMENOrdering Facility: [facility] Address: [address] [place] [address] Performed By: #### 2 4323-8 ####[facility] LABCLIA [id number] [place] [address] Sodium [Moles/Vol] 141 mmol/L Normal 136-144 [facility] Comment on above: Order Comment: Speci men Type: BLOOD SPECIMENOrdering Facility: [facility] Address: [address] [place] [id number] Performed By: #### 2 4323-8 ####[facility] LABCLIA [id number] [place] [address] Urea nitrogen [Mass/Vol] 20 mg/dL Normal 7-21 [facility] Comment on above: Order Comment: Speci men Type: BLOOD SPECIMENOrdering Facility: [facility] Address: [address] [place] [address] Performed By: #### 2 4323-8 ####[facility] LABCLIA [id number] [place] [address] Ferritin SerPl-ncon 2023 Ferritin [Mass/Vol] 39.9 ng/mL Normal 14.7-205.1 [facility] Comment on above: Order Comment: Speci men Type: BLOOD SPECIMENOrdering Facility: [facility] Address: [address] [place] [address] Performed By: #### 2 276-4, 38388-5 ####[facility] LABCLIA [id number] [place] [address] [place] Iron and Iron binding capaci ty panelon 03-31-2024 Iron [Mass/Vol] 44 ug/dL Normal 41-186 [facility] Comment on above: Order Comment: Speci men Type: BLOOD SPECIMENOrdering Facility: [facility] Address: [address] [place] [address] Performed By: #### 2 276-4, 62452-4 ####[facility] LABCLIA [id number] [place] [address] [place] Iron binding capacity [Mass/Vol] 355 ug/dL Normal 232-386 [facility] Comment on above: Order Comment: Speci men Type: BLOOD SPECIMENOrdering Facility: [facility] Address: [address] [place] [address] Performed By: #### 2 276-4, 78904-0 ####[facility] LABCLIA [id number] [place] [id number] [place] Iron/TIBC [Molar ratio] 12.4 % Low 15.0-57.0 [facility] Comment on above: Order Comment: Speci men Type: BLOOD SPECIMENOrdering Facility: [facility] Address: [address] [place] [address] Performed By: #### 2 276-4, 61406-3 ####[facility] LABCLIA [id number] [place] [id number] [place] CNPNon 03-19-2024 CNPN Telephone (HEMASA) SHAUNA CHRISTENSEN ([id number]) 1955 F Date Time Provider Department 03/19/24 SUZIE PATEL HEMASA During your visit today, we recorded the [...] [D50.9] Order(s):IRON AND TIBC [SQIRON] Order #: [id number] FUTURE COMPREHENSIVE METABOLIC PANEL [SQCMP] Order #: [id number] FUTURE COMPLETE BLOOD COUNT AND DIFFERENTIAL [SQCBCDIF] Order #: [id number] FUTURE FERRITIN [SQFERR] Order #: [id number] FUTURE Prescriptions as of 03/19/2024 - aspirin [...] (GLUCOPHAGE) 500 mg tablet - MV with Ich-Lxgbgans-Vxbumv (CENTRUM SILVER) 0.4 mg-300 mcg- 250 mcg tab See Admin Instructions. - oxybutynin ER (DITROPAN XL) 15 mg 24 hr Extended Rel Tab Problem List As Of Date: 03/19/2024 (None) Encounter Status:Closed by EMILY TA on 03/19/24 Normal [facility] COMPLETE BLOOD COUNTon 01-16 Erythrocyte distribution width (RBC) [Ratio] 15.4 % High 11.5-15.0 [facility] Comment on above: Performed By: #### C ABE, FEPR #### [facility] ([id number]) [address] [address] Hematocrit (Bld) [Volume fraction] 39.4 % Normal 35-47 [facility] Comment on above: Performed By: #### C ABE, FEPR #### [facility] ([id number]) [address] [address] Hemoglobin (Bld) [Mass/Vol] 13.2 g/dL Normal 11.7-15.5 [facility] Comment on above: Performed By: #### C ABE, FEPR #### [facility] ([id number]) [address] [address] MCH (RBC) [Entitic mass] 28.7 pg Normal 27-34 [facility] Comment on above: Performed By: #### C BC, FEPR #### [facility] ([id number]) [address] [place] [address] MCHC (RBC) [Mass/Vol] 33.5 g/dL Normal 32-36 [facility] Comment on above: Performed By: #### C ABE, FEPR #### [facility] ([id number]) [address], [address] [place] [address] MCV (RBC) [Entitic vol] 86 fL Normal 80-100 [facility] Comment on above: Performed By: #### C ABE, FEPR #### [facility] ([id number]) [address], [facility] [address] [place] [address] Platelet mean volume (Bld) [Entitic vol] 8.8 fL Normal 7-12 [facility] Comment on above: Performed By: #### Rubi FISH, FEPR #### [facility] ([id number]) [address], [address] [place] [address] Platelets (Bld) [#/Vol] 282 10*3/uL Normal 150-450 [facility] Comment on above: Performed By: #### Rubi FISH, FEPR #### [facility] ([id number]) [address], [address] [place] [address] RBC COUNT 4.60 X10E12/L Normal 3.80-5.20 [facility] Comment on above: Performed By: #### Rubi FISH, FEPR #### [facility] ([id number]) [address], [address] [place] [address] WBC (Bld) [#/Vol] 7.1 10*3/uL Normal 4.0-11.0 [facility] Comment on above: Performed By: #### Rubi FISH, FEPR #### [facility] ([id number]) [address], [address] [place] [address] IRON PROFILEon 01-17-2024 Iron [Mass/Vol] 138 ug/dL Normal 50-170 [facility] Comment on above: Performed By: #### C BC, FEPR #### [facility] ([id number]) [address], [address] [place] [address] IRON BINDING 413 ug/dL Normal 250-425 [facility] Comment on above: Performed By: #### C BC, FEPR #### [facility] ([id number]) [address], [address] [place] [address] IRON SATURATION 33 % SATURATION Normal 15-50 [facility] Comment on above: Performed By: #### C BC, FEPR #### [facility] ([id number]) [address], [address] [place] [address] CBC without diffon Erythrocyte distribution width (RBC) [Ratio] 15.3 % High 11.5 - 15.0 % [facility] Hematocrit (Bld) [Volume fraction] 35.7 % 35 - 47 % [facility] Hemoglobin (Bld) [Mass/Vol] 11.9 g/dL 11.7 - 15.5 g/dL [facility] Interpretation and review of laboratory results Abnormal [facility] MCH (RBC) [Entitic mass] 28.4 pg 27 - 34 pg [facility] MCHC (RBC) [Mass/Vol] 33.3 g/dL 32 - 36 g/dL [facility] MCV (RBC) [Entitic vol] 85 fL 80 - 100 fL [facility] Platelet mean volume (Bld) [Entitic vol] 8.8 fL 7 - 12 fL [facility] Platelets (Bld) [#/Vol] 312 10*3/uL [facility] RBC (Bld) [#/Vol] 4.20 10*6/uL [facility] WBC corrected for nucl RBC Auto (Bld) [#/Vol] 5.0 [facility] COMPLETE BLOOD COUNTon 10-09 Erythrocyte distribution width (RBC) [Ratio] 15.3 % High 11.5-15.0 [facility] Comment on above: Performed By: #### F EPR, CBC, HA1C #### [facility] [facility] ([id number]) [address], [address] [place] [address] Hematocrit (Bld) [Volume fraction] 35.7 % Normal 35-47 [facility] Comment on above: Performed By: #### F EPR, CBC, HA1C #### [facility] ([id number]) [address], [facility] [address] [place] [address] Hemoglobin (Bld) [Mass/Vol] 11.9 g/dL Normal 11.7-15.5 [facility] Comment on above: Performed By: #### F EPR, CBC, HA1C #### [facility] ([id number]) [address] [address] [place] [address] MCH (RBC) [Entitic mass] 28.4 pg Normal 27-34 [facility] Comment on above: Performed By: #### F EPR, CBC, HA1C #### [facility] ([id number]) [address], [facility] [address] [place] [address] MCHC (RBC) [Mass/Vol] 33.3 g/dL Normal 32-36 [facility] Comment on above: Performed By: #### F EPR, CBC, HA1C #### [facility] ([id number]) [address], [facility] [address] [place] [address] MCV (RBC) [Entitic vol] 85 fL Normal 80-100 [facility] Comment on above: Performed By: #### F EPR, CBC, HA1C #### [facility] ([id number]) [address] [address] [place] [address] Platelet mean volume (Bld) [Entitic vol] 8.8 fL Normal 7-12 [facility] Comment on above: Performed By: #### F EPR, CBC, HA1C #### [facility] ([id number]) [address] [address] [place] [address] Platelets (Bld) [#/Vol] 312 10*3/uL Normal 150-450 [facility] Comment on above: Performed By: #### F EPR, CBC, HA1C #### [facility] ([id number]) [address], [address] [place] [address] RBC COUNT 4.20 X10E12/L Normal 3.80-5.20 [facility] Comment on above: Performed By: #### F EPR, CBC, HA1C #### [facility] ([id number]) [address], [facility] [address] [place] [address] WBC (Bld) [#/Vol] 5.0 10*3/uL Normal 4.0-11.0 [facility] Comment on above: Performed By: #### F EPR, CBC, HA1C #### [facility] ([id number]) [address], [address] [place] [address] COMPREHENSIVE METABOLIC PANE [place] 10-10-2023 Albumin [Mass/Vol] 4.0 g/dL Normal 3.2-5.3 [facility] Comment on above: Performed By: #### C PATRICE, 43700-4 #### [facility] ([id number]) [address], [address] [place] [address] ALP [Catalytic activity/Vol] 85 U/L Normal 39-130 [facility] Comment on above: Performed By: #### C PATRICE, 22959-3 #### [facility] ([id number]) [address], [address] [place] [address] ALT [Catalytic activity/Vol] 20 U/L Normal 0-31 [facility] Comment on above: Performed By: #### C PATRICE, 87092-8 #### [facility] ([id number]) [address], [address] [place] [address] Anion gap [Moles/Vol] 9 mmol/L Normal 5-15 [facility] Comment on above: Performed By: #### Rubi IBRAHIM, 74989-5 #### [facility] ([id number]) [address], [address] [place] [address] AST [Catalytic activity/Vol] 24 U/L Normal 0-41 [facility] Comment on above: Performed By: #### Rubi IBRAHIM 29536-8 #### [facility] ([id number]) [address], [address] [place] [address] Bilirubin [Mass/Vol] 0.6 mg/dL Normal 0.3-1.2 [facility] Comment on above: Performed By: #### Rubi IBRAHIM, 06723-4 #### [facility] ([id number]) [address], [address] [place] [address] Calcium [Mass/Vol] 9.4 mg/dL Normal 8.5-10.5 [facility] Comment on above: Performed By: #### Rubi IBRAHIM 84234-4 #### [facility] ([id number]) [address], [address] [place] [address] Chloride [Moles/Vol] 107 mmol/L Normal 98-109 [facility] Comment on above: Performed By: #### Rubi IBRAHIM 98421-9 #### [facility] ([id number]) [address], [address] [place] [address] CO2 [Moles/Vol] 27 mmol/L Normal 22-32 [facility] Comment on above: Performed By: #### Rubi IBRAHIM 12907-3 #### [facility] ([id number]) [address], [address] [place] [address] Creatinine [Mass/Vol] 0.80 mg/dL Normal 0.40-1.00 [facility] Comment on above: Result Comment: METH OD TRACEABLE TO IDMS STANDARD Performed By: #### Rubi IBRAHIM 31697-6 #### [facility] ([id number]) [address], [address] [place] [address] GFR/1.73 sq M.predicted among non-blacks MDRD (S/P/Bld) [Vol rate/Area] 80 mL/min/{1.73_m2} Normal >59 [facility] Comment on above: Result Comment: Reported eGFR is based on the CKD-EPI 2020 equation that does not use a race coefficient. Performed By: #### Rubi IBRAHIM, 70983-8 #### [facility] ([id number]) [address], [address] [place] [address] Glucose [Mass/Vol] 86 mg/dL Normal 65-99 [facility] Comment on above: Performed By: #### Rubi IBRAHIM 26674-9 #### [facility] ([id number]) [address], [address] [place] [address] Potassium [Moles/Vol] 4.2 mmol/L Normal 3.5-5.0 [facility] Comment on above: Performed By: #### Rubi IBRAHIM, 88371-4 #### [facility] ([id number]) [address], [address] [place] [address] Protein [Mass/Vol] 6.8 g/dL Normal 6.0-8.0 [facility] Comment on above: Performed By: #### Rubi IBRAHIM, 73278-7 #### [facility] ([id number]) [address], [address] [place] [address] Sodium [Moles/Vol] 143 mmol/L Normal 134-146 [facility] Comment on above: Performed By: #### Rubi IBRAHIM, 70878-0 #### [facility] ([id number]) [address], [address] [place] [address] Urea nitrogen [Mass/Vol] 17 mg/dL Normal 5-27 [facility] Comment on above: Performed By: #### Rubi IBRAHIM, 11529-8 #### [facility] ([id number]) [address] [facility] [place] [address] Comprehensive metabolic pane tejas 10-10-2023 Albumin [Mass/Vol] 4.0 g/dL 3.2 - 5.3 g/dL [facility] ALP [Catalytic activity/Vol] 85 U/L 39 - 130 U/L [facility] ALT No additional P-5'-P [Catalytic activity/Vol] 20 U/L 0 - 31 U/L [facility] Anion gap [Moles/Vol] 9 mmol/L 5 - 15 mmol/L [facility] AST [Catalytic activity/Vol] 24 U/L 0 - 41 U/L [facility] Bilirubin [Mass/Vol] 0.6 mg/dL 0.3 - 1.2 mg/dL [facility] Calcium [Mass/Vol] 9.4 mg/dL 8.5 - 10. 5 mg/dL [facility] Chloride [Moles/Vol] 107 mmol/L 98 - 109 mmol/L [facility] CO2 [Moles/Vol] 27 mmol/L 22 - 32 mmol/L [facility] Creatinine [Mass/Vol] 0.80 mg/dL 0.40 - 1.00 mg/dL [facility] Comment on above: METHOD TRACEABLE TO IDWA STANDARD eGFR (CKD-EPI)non-race dependent 80 - PINF [facility] Comment on above: Reported eGFR is based on the CKD-EPI 2020 equation that does not use a race coefficient. Glucose [Mass/Vol] 86 mg/dL 65 - 99 mg/dL [facility] Potassium [Moles/Vol] 4.2 mmol/L 3.5 - 5.0 mmol/L [facility] Protein [Mass/Vol] 6.8 g/dL 6.0 - 8.0 g/dL [facility] Sodium [Moles/Vol] 143 mmol/L 134 - 146 mmol/L [facility] Urea nitrogen [Mass/Vol] 17 mg/dL 5 - 27 mg/dL [facility] HGB A1C (GLYCO-HGB)on 2023 Glucose [Mass/Vol] 105 mg/dL Normal [facility] Comment on above: Performed By: #### F EPR, CBC, HA1C #### [facility] ([id number]) [address], [facility] [address] [place] [address] HbA1c (Bld) [Mass fraction] 5.3 % Normal 4.4-5.6 [facility] Comment on above: Result Comment: NOTE ADA Guidelines Result HgbA1c Normal : less than 5.7 % Prediabetes : 5.7 % to 6.4 % Diabetes : > 6.4 % Use with caution in patients with abnormal hemoglobin variants as the half-life of red blood cells and in vivo glycation rates are affected. Performed By: #### F EPR, CBC, HA1C #### [facility] ([id number]) [address] [address] Hemoglobin A1con 10-10-2023 Average glucose Estimated from glycated hemoglobin (Bld) [Mass/Vol] 105 mg/dL [facility] HbA1c (Bld) [Mass fraction] 5.3 % 4.4 - 5.6 % [facility] Comment on above: NOTE ADA Guidelines Result HgbA1c Normal : less than 5.7 % Prediabetes : 5.7 % to 6.4 % Diabetes : > 6.4 % Use with caution in patients with abnormal hemoglobin variants as the half-life of red blood cells and in vivo glycation rates are affected. [facility] IRON PROFILEon 10-10-2023 Iron [Mass/Vol] 27 ug/dL Low 50-170 [facility] Comment on above: Performed By: #### F EPR, CBC, HA1C #### [facility] ([id number]) [address] [facility] [place] [address] IRON BINDING 395 ug/dL Normal 250-425 [facility] Comment on above: Performed By: #### F EPR, CBC, HA1C #### [facility] ([id number]) [address], [address] [place] [address] IRON SATURATION 7 % SATURATION Low 15-50 [facility] Comment on above: Performed By: #### F EPR, CBC, HA1C #### [facility] ([id number]) [address], [address] [place] [address] Iron and TIBCon 10-10-2023 Interpretation and review of laboratory results Abnormal [facility] Iron [Mass/Vol] 27 ug/dL Low 50 - 170 ug/dL [facility] Iron binding capacity [Mass/Vol] 395 ug/dL 250 - 425 ug/dL [facility] Iron saturation [Mass fraction] 7 Low [facility] Lipid 1996 panelon Cholesterol [Mass/Vol] 129 mg/dL Low 150-200 [facility] Comment on above: Performed By: #### C PATRICE, 53329-7 #### [facility] ([id number]) [address], [address] [place] [address] Cholesterol in HDL [Mass/Vol] 50 mg/dL Normal >39 [facility] Comment on above: Result Comment: HDL <40 mg/dL - High Risk HDL > or = 40mg/dL- Desirable HDL >60 mg/dL - Negative Risk Performed By: #### C PATRICE, 50451-6 #### [facility] ([id number]) [address], [address] [place] [address] Cholesterol in LDL [Mass/Vol] 55 mg/dL Normal <130 [facility] Comment on above: Result Comment: LDL <100 mg/dL - Desirable LDL >160 mg/dL - High Risk Performed By: #### C PATRICE, 62731-8 #### [facility] ([id number]) [address], [address] [place] [address] Cholesterol in VLDL [Mass/Vol] 24 mg/dL Normal 0-30 [facility] Comment on above: Performed By: #### Rubi IBRAHIM, 92366-2 #### [facility] ([id number]) [address], [address] [place] [address] CHOLESTEROL:HDL 2.6 Normal 1.0-5.0 [facility] Comment on above: Performed By: #### Rubi IBRAHIM, 62411-3 #### [facility] ([id number]) [address], [address] [place] [address] Triglyceride [Mass/Vol] 122 mg/dL Normal 27-150 [facility] Comment on above: Performed By: #### Rubi IBRAHIM, 76168-1 #### [facility] ([id number]) [address], [address] [place] [address] Urinalysis - AUTOMATEDon Appearance (U) cloudy [employer] Other Bilirubin Ql (U) Negative [employer] Other Color (U) dark yellow [employer] Other Glucose Ql (U) Negative [employer] Other Hemoglobin Ql (U) large [employer] Other Ketones Ql (U) Negative [employer] Other Leukocyte esterase Test strip Ql (U) small [employer] Other Nitrite Ql (U) Negative [employer] Other pH (U) 6.5 [pH] [employer] Other Protein Ql (U) 100 [employer] Other Specific gravity (U) [Rel density] 1.025 [employer] Other Urobilinogen (U) [Mass/Vol] 0.2 mg/dL [employer] Other Urinalysis - AUTOMATED [employer] Other Urine Cultureon 04-25-2023 Urine Culture 50,000 [employer] Other Urine Culture <16 Susceptible [employer] Other Urine Culture <8/4 Susceptible [employer] Other Urine Culture <8 Susceptible [employer] Other Urine Culture <4 Susceptible [employer] Other Urine Culture <2 Susceptible [employer] Other Urine Culture <1 Susceptible [employer] Other Urine Culture <0.25 Susceptible [employer] Other Urine Culture <0.5 Susceptible [employer] Other Urine Culture <0.5/9.5 Susceptible [employer] Other Bacteria identified Cx Nom (U) Reason for Exam Dysuria Urine ORGANISM: Proteus mirabilis (O:PROMIR) [place] Count 50,000 Aerobic ANTONELLA Charge (NMIC56) --- [...] RESISTANT TO ALL B-LACTAM DRUGS. PERFORMED BY: [place] [address] PATHOLOGIST [employer] WORK[employer] CHAO ARELLANO M.D. Normal [facility] Comment on above: Performed By: #### C UU #### [address] CBC AUTO DIFFon 10-11-2022 BASO # 0.0 103/ul Normal 0.0-0.1 [facility] Comment on above: Performed By: #### C BC #### [facility] [address] [place] [address] Dr. Odilia Ceron Basophils/100 WBC (Bld) 0.4 % Normal 0.2-2.0 [facility] Comment on above: Performed By: #### C BC #### [facility] [address] [address] [address] Odilia Ceron EO # 0.1 103/ul Normal 0.0-0.7 [facility] Comment on above: Performed By: #### C BC #### [facility] [address] [address] [address] Odilia Ceron Eosinophils/100 WBC (Bld) 2.1 % Normal 0.9-7.0 [facility] Comment on above: Performed By: #### C BC #### [facility] [address] [place] [address] Dr. Odilia Ceron Erythrocyte distribution width (RBC) [Ratio] 15.3 % Critically high 11.0-15.0 [facility] Comment on above: Performed By: #### C BC #### [facility] [address] [place] [address] Dr. Odilia Ceron Hematocrit (Bld) [Volume fraction] 40.8 % Normal 36.0-48.0 [facility] Comment on above: Performed By: #### C BC #### [facility] [address] [place] [address] Dr. Odilia Ceron Hemoglobin (Bld) [Mass/Vol] 12.9 g/dL Normal 12.0-16.0 [facility] Comment on above: Performed By: #### C BC #### [facility] [address] [place] [address] Dr. Odilia Ceron IG # 0.02 10e3/ul Normal 0.00-0.03 [facility] Comment on above: Performed By: #### C BC #### [facility] [address] [place] [address] Dr. Odilia Ceron IG % 0.4 % Normal 0.0-0.5 [facility] Comment on above: Performed By: #### C BC #### [facility] [address] [place] [address] Dr. Odilia Ceron LYMPH # 1.8 103/ul Normal 1.2-3.8 [facility] Comment on above: Performed By: #### C BC #### [facility] [address] [place] [address] Dr. Odilia Ceron Lymphocytes/100 WBC (Bld) 38.1 % Normal 20.5-60.0 [facility] Comment on above: Performed By: #### C BC #### [facility] [address] [place] [address] Dr. Odilia Ceron MANUAL DIFF REQ NO Normal [facility] Comment on above: Performed By: #### C BC #### [facility] [address] [place] [address] Dr. Odilia Ceron MCH (RBC) [Entitic mass] 28.0 pg Normal 26.7-34.0 [facility] Comment on above: Performed By: #### C BC #### [facility] [address] [place] [address] Dr. Odilia Ceron MCHC (RBC) [Mass/Vol] 31.6 g/dL Normal 29.9-35.2 [facility] Comment on above: Performed By: #### C BC #### [facility] [address] [place] [address] Dr. Odilia Ceron MCV (RBC) [Entitic vol] 88.5 fL Normal 81.0-99.0 [facility] Comment on above: Performed By: #### C BC #### [facility] [address] [place] [address] Dr. Odilia Ceron MONO # 0.5 103/ul Normal 0.3-0.8 [facility] Comment on above: Performed By: #### C BC #### [facility] [address] [place] [address] Dr. Odilia Ceron Monocytes/100 WBC (Bld) 10.4 % Normal 1.7-12.0 [facility] Comment on above: Performed By: #### C BC #### [facility] [address] [place] [address] Dr. Odilia Ceron NEUT # 2.3 103/ul Normal 1.4-6.5 [facility] Comment on above: Performed By: #### C BC #### [facility] [address] [place] [address] Dr. Odilia Ceron Neutrophils/100 WBC (Bld) 48.6 % Normal 43.0-75.0 [facility] Comment on above: Performed By: #### C BC #### [facility] [address] [place] [address] Dr. Odilia Ceron Platelet mean volume (Bld) [Entitic vol] 10.1 fL Normal 9.5-13.5 [facility] Comment on above: Performed By: #### C BC #### [facility] [address] [place], [place] [address] Dr. Odilia Ceron PLT 298 103/ul Normal 150-450 [facility] Comment on above: Performed By: #### C BC #### [facility] [address] [place], [place] [address] Dr. Odilia Ceron RBC 4.61 106/ul Normal 4.20-5.40 [facility] Comment on above: Performed By: #### C BC #### [facility] [address] [address] [address] Odilia Ceron WBC 4.8 103/ul Normal 4.0-11.0 [facility] Comment on above: Performed By: #### C BC #### [facility] [address] [address] [address] Odilia Ceron FERRITINon 10-11-2022 Ferritin [Mass/Vol] 21.0 ng/mL Normal 8.0-252.0 [facility] Comment on above: Performed By: #### F ERR, FETIBC ####[facility] [address] [id number] Ceron IRON AND TIBCon 10-11-2022 % SATURATION 14.5 % Normal [facility] Comment on above: Performed By: #### F ERR, FETIBC ####[facility] [address] [id number] Ceron Iron [Mass/Vol] 51.0 ug/dL Normal 50.0-170.0 [facility] Comment on above: Performed By: #### F ERR, FETIBC ####[facility] [address] [id number] Ceron TIBC DIRECT 351.0 ug/dL Normal 250.0-450.0 [facility] Comment on above: Performed By: #### F ERR, FETIBC ####[facility] [address] [id number] Ceron Urinalysis - AUTOMATEDon Appearance (U) dark [employer] Other Bilirubin Ql (U) Negative [employer] Other Color (U) year [employer] Other Glucose Ql (U) Negative [employer] Other Hemoglobin Ql (U) large [employer] Other Ketones Ql (U) Negative [employer] Other Leukocyte esterase Test strip Ql (U) large [employer] Other Nitrite Ql (U) Negative [employer] Other pH (U) 6.5 [pH] [employer] Other Protein Ql (U) >=300 mg/DL [employer] Other Specific gravity (U) [Rel density] 1.030 [employer] Other Urobilinogen (U) [Mass/Vol] 0.2 mg/dL [employer] Other Urinalysis - AUTOMATED [employer] Other Urine Cultureon 10-04-2022 Bacteria identified Cx Nom (U) 40,000 colonies/ml mixed bacterial skin contaminants 2 Days PERFORMED BY: [place] [id number] PATHOLOGIST [employer]EL WORKER CHAO ARELLANO M.D. Normal [facility] Comment on above: Performed By: #### C UU #### [address] Bacteria identified Cx Nom (U) [employer] Other Comprehensive metabolic 2000 panelon 08-31-2022 Albumin [Mass/Vol] 4.4 g/dL 3.9 - 4.9 g/dL [facility] ALP [Catalytic activity/Vol] 99 U/L 34 - 123 U/L [facility] ALT [Catalytic activity/Vol] 20 U/L 7 - 38 U/L [facility] Anion gap [Moles/Vol] 9 mmol/L 9 - 18 mmol/L [facility] AST [Catalytic activity/Vol] 23 U/L 13 - 35 U/L [facility] Bilirubin [Mass/Vol] 0.4 mg/dL 0.2 - 1.3 mg/dL [facility] Calcium [Mass/Vol] 9.9 mg/dL 8.5 - 10. 2 mg/dL [facility] Chloride [Moles/Vol] 103 mmol/L 97 - 105 mmol/L [facility] CO2 [Moles/Vol] 28 mmol/L 22 - 30 mmol/L [facility] Creatinine [Mass/Vol] 0.95 mg/dL 0.58 - 0.96 mg/dL [facility] Estimated Glomerular Filtration Rate 65 mL/min/1.73m >=60 mL/min/1.73m [facility] Glucose [Mass/Vol] 132 mg/dL High 74 - 99 mg/dL [facility] Potassium [Moles/Vol] 4.6 mmol/L 3.7 - 5.1 mmol/L [facility] Protein [Mass/Vol] 7.2 g/dL 6.3 - 8.0 g/dL [facility] Sodium [Moles/Vol] 140 mmol/L 136 - 144 mmol/L [facility] Urea nitrogen [Mass/Vol] 16 mg/dL 7 - 21 mg/dL [facility] Physical Therapy Noteon 08-02 Physical Therapy Note [id number]#1.0 [facility] Auto Differential pane l (Bld)on 06-22-2022 Basophils (Bld) [#/Vol] 0.03 10*3/uL <0.11 k/uL [facility] Basophils/100 WBC (Bld) 0.4 % [facility] Differential cell count method Nom (Bld) Auto [facility] Eosinophils (Bld) [#/Vol] 0.12 10*3/uL <0.46 k/uL [facility] Eosinophils/100 WBC (Bld) 1.7 % [facility] Erythrocyte distribution width (RBC) [Ratio] 16.6 % High 11.5 - 15.0 % [facility] Hematocrit (Bld) [Volume fraction] 35.3 % Low 36.0 - 46.0 % [facility] Hemoglobin (Bld) [Mass/Vol] 11.2 g/dL Low 11.5 - 15.5 g/dL [facility] Immature granulocytes (Bld) [#/Vol] <0.10 k/uL [facility] Immature granulocytes/100 WBC (Bld) 0.3 % [facility] Lymphocytes (Bld) [#/Vol] 3.03 10*3/uL 1.00 - 4.00 k/uL [facility] Lymphocytes/100 WBC (Bld) 42.6 % [facility] MCH (RBC) [Entitic mass] 26.8 pg 26.0 - 34.0 pg [facility] MCHC (RBC) [Mass/Vol] 31.7 g/dL 30.5 - 36.0 g/dL [facility] MCV (RBC) [Entitic vol] 84.4 fL 80.0 - 100.0 fL [facility] Monocytes (Bld) [#/Vol] 0.75 10*3/uL <0.87 k/uL [facility] Monocytes/100 WBC (Bld) 10.5 % [facility] Neutrophils (Bld) [#/Vol] 3.16 10*3/uL 1.45 - 7.50 k/uL [facility] Neutrophils/100 WBC (Bld) 44.5 % [facility] Nucleated RBC (Bld) [#/Vol] <0.01 k/uL [facility] Nucleated RBC/100 WBC (Bld) [Ratio] 0.0 /100 WBC [facility] Platelet mean volume (Bld) [Entitic vol] 9.5 fL 9.0 - 12.7 fL [facility] Platelets (Bld) [#/Vol] 286 10*3/uL 150 - 400 k/uL [facility] RBC (Bld) [#/Vol] 4.18 10*6/uL 3.90 - 5.2 0 m/uL [facility] WBC (Bld) [#/Vol] 7.11 10*3/uL 3.70 - 11. 00 k/uL [facility] RETIC COUNTon 06-22-2022 Reticulocytes (Bld) [#/Vol] 0.93882 10*3/uL 0.018 - 0.100 M/uL [facility] Reticulocytes (Bld) [#/Vol]o n 06-22-2022 Reticulocytes/100 RBC (Bld) 1.7 % 0.4 - 2.0 % [facility] Provider Orderson 06-21-2022 Provider Orders [id number]#1.0 0OTGTIFF [facility] Coding Summaryon 06-20-2022 Coding Summary [employer]Base 64 FxecomqeHNh8wXq+PGhlYW Q+ZB5XWJZwR83ijALcxF4B D8hRHK2ABJTZXBKTVC2BLG 7rvKE5UJwmY5HjltVf RxjgsMFdVA80PFg6VKF6hK paUNlecI4vqJLeX2c2FoJq NY30vW70RZizWNOmAxZ0Kl ZpbjsgbWFy D5tjHxDpuFYkPjm+PHRhYm xlIHdpZHRoPScxMDAlJyBz lLuoKC1jSu4lRVJwBUCbqJ xhcHNlOiBj y0dtKKLwIJtrQB4vzIgoO2 TohGJ9XHNea5d0Sq38eKE+ KDHqYIV1bBysOHqdn138Py Lrc9ybXOL9 mFFvXOklBKA2O17xy1C8YM XdTGIdRET4gGY5zJ6iaUmp czjbT4PivSOxCcQ8TMY9hG BgaZ3heHqp dwteuR0zFuv+E24DSE9OSY SIVF4QMpg4C6FvKjpcpUT+ OW73BRDsGR14rVVotLIwr8 wtwAp5NqDu ENUfZVL8uRrcTFodg8ZbHD IkF64llPIky2J0FGOslZwn wMFdAnKfgND6jA8xHLerym oun0ehyufq Supro4ozve60vP74C43fKV uzVVJrXXD5WPAyJTMnbHze pb7wvD9cRu3+ZWuni9thk8 ramKt5CbGk PCHqcoFvaGgcEUM6i8NcJq 99M2DasKpdn4IqNvk6nd24 gFBij7C6sPV9BXbgWJKxuA 9iUKplIcV4 ZMMxZtLniL80iIFtZRhnPo 0wtCpmuMloDW9zCQUiyzcr TMSrtC8aSPDjbCLfeSgyNM 4wNTBpbjtm z490YlWzSRC8WXAarGAtD5 YydR4aFgFgKIPjBKPbY2Vn vNXhDNfvK963BSmjTxF4HJ YfphLlU5Ht KRYooVtvYiR2k1P1Ut9Gm0 ExplemDHT3RJykLYEwXcF1 DoEsEqT4V9CfLeg0WJVwhS kbXC1dY4Um ITEjbbegvyjhdXV8RLUuFD AbvX84mFTaVDkjJy5kv5P1 m297BSCxUHHhpA79My8udZ ogMTBwdCBU tX3xucxfc6asjynaQbEzKC SwWMx9BZh7XNVhvKjwOtVf XTL6OtW7YCH3yNPtiX2deD gvcuhgiK3s Oyc+N33mbK1cITB8TCH9xg khISSwlrYwNR94WP15R7My PjwvdGFibGU+PGRpdiBzdH qjQN7bPeZq a0bti5YoMDxtS9DzDSOrRR ztHdk0CRRrKTU9eOY5lZ9c QOXnZGngx6R2tOF8Z1Dejb Jgvo7lh0cw CZLcSOryR89gsXEzc1Z3XR QslOZ8ZHEziJbfLlTssG91 Oyc+WOMfoVscu2TbPqpbe2 esi4fpzWt2 OvOsYJUylsUzlQxbXVW1j5 SxLx41S84rUXucGRJtPXIf HSAlCXEquFpjej7vnA9qXf 8+PGNvbCB3 rOZ8zO2uXUBzBsG4BIxtO2 88QtYqqEJwVawrw7xab7ix cUt6UfWmLFWamrWstPayQK F3j0XqDo83 E09hQMisFIOhGZHvAQMoID RhpKzidz5puB8gKm7+PC9j l8annw54aX22sOF+PHRkIH O6pZmaOAdj EQZxuF5iCIqdRlU1EKFgWf WrvU66nSBjCOyeFq9erFbq nAykPO6nYICoticch379Kc Mri2byAZGo rPUnRIvpOPU8M54ee5W3FG XsWNCbURV9mDC3fH6puRrc bjogbGVmdDsgdmVydGljYW ghZJtyH956 IHRvcDsnPlBhdGllbnQgTm IdYVy0W4NlPxv0KVCmqVws CF5ejRRvHCypHf4wyRxbcA khHE4hKMLe kgtms596RoVqv4kfPBZgdY HiNOrhOJT6X31xs8G3HWIk UUGbXJB3eDP7aI8kyYtqse ogbGVmdDsg mrXxjNnoTArhWWwcW101WE RvcDsnPkJpcnRoIERhdGU6 LF88TH18hHZmt5Z9yRE2W4 BhZGRpbmct xiwhaXV5DPPnFORzrL69Ew 8peRbkAy7pMNTwXUM4JOHn kVGeK0YfuK2lMuPwIGZrYE AxT6EhjMUj DOnfG417VFcgVyN4YPJmml GjI9DvWDMeyCldPvL4t1C4 Pw4NQ3F1IS92YG93oAQzd1 G5nIW6G6Az NAYwcyjavpheqVS3SEVkHK JrhC82Qb4gxZqsQl3tCWWp ODC2QZRubYKfG7CxjG8fIi AjMDAwMDAw W4ImwGTzSNnuS283UDomBs O6GBQbvlSmF3MiCYTjnFoq XkR2p8W5Ew1VRGa3QW77EY 11zSAja1J3 fHQ1H5DbRCVyopfhphpevY K5RURnQPEvzB43Gx7hhIhr Ql4kVUWhLTT1TWBntPCcI5 YexX1fJtUw EUEoODBlR5UlyOQrQBbdA5 94WEzdLdT4ZCPrtoCgV6Lu JGQigShgHhW2t5C3Lm4LPO RrRX62IHC7 kJQ0HR86SU61S7NiUyataW FibGU+PHRhYmxlIHdpZHRo WNjqFUCfKdIerPezYV4lHm 9yZGVyLWNv vOatiFDuStIla2tiIQZiIQ nyDL0bnQwkP8RsuNF3ZVDw a9z9Cu74P15lJ6FmsFD+PG RagCI5vBB8 hU0qNoPpUoL9PNjuL025Ao SvuETePjypa0ust8qcvVx0 RrV8BQNwizUytOvoZZC2p3 FaAc59I82v IHdpZHRoPSIxNSUiIHZhbG efla9lwL1dKf0+PGNvbCB3 tNI8qK6yLjTzWvV5VIccG1 49InRvcCIv Zrucv5ptu5wzyTe6QzRqMP KdtmSliJiqEOX4w3JbIx54 P8XyiHnzq2LzDnz0bi78wI Yro8T7jHW8 G4PkUSZwxtpbyBLjrJdpCC 5jNKAlrgdsFCSmsS5zQVOj C2g2EuLnYeQ0FYhjM4Ugrd T6WTEoiBEf DIitJDZ1B69uy4F0EQMfBG RiWCR8jGD9xQ4xnHrkzwuu bGVmdDsgdmVydGljYWwtYW muM375RZPx qSikKJScfD1zVMUvmKPxeJ beJT5gEMGawgyvMoGMZl3T PBwbUKIFHgPvT8VPZP57IP 99lWXfp4U8 jGC8B7KwYRKheayzgvnyyL P6RCGdHWNrkE40sWBrRCob Dc5nl2J4g567AEWdPFUtnF 65Dx7bsIqo HTSaqTRZcZ0mavhcw9dnlw ieZoHkGNCqTRg6DZo4DZHs gGdfXzVsXIK7PlH4OIE5yS UzaC1tkWeh yvjllM1aOpi+MDkvMDEvMT j3DHhhbDS+ACSgDDY8oUjc WHquBCOsyV5oSVXrR0l1Qk DcFrK3BNki V9ApKPFokmdgJg68eB1sMm IwTnD0XHceP1SfprF0OVEb cNDaCVqrOZL2P24fr1P8KO MwMDAwMDA7 lGZ8vP5gvOyxbtwcsRXbeJ qbwdZhsTeuFCerDTfbO397 LLXgmGsuMxB1BFlbXZIkZR 20YQ62uNEq i9Q1vQB7J1AaVYBfkjhggi bnyUJ7LGOgPXOpvH10iAXk OGjuFd0pw1Y2c865UNAyKC YlwF41Yw2l kKluXOAnkKFTfC1lxprjj0 vqluiiRaYkXABkYAn3LZk6 YXMilBjcZwHiPYJ5VxE0AU E4uZZfmT8p sWcbtoaazN8iVgv+RkVNQU zZSF72SW71lAJia9A8wZW1 Z5GpBRVfozitcjtojUQ6GB EoYNTvgC72 cPCjMSbfVg0ia6X3b321DI LjJZPedA87Lt6sbLsnLWNl qVPKaJ0zxljrl2pexjylSx AwMDAwMDt0 LWs3DSRjxQsyYrOeUSC8Wz Y0BRM6lIGueD9qdBsrhlvu sN3zJmd+HyRqjDMzlL7wNT 91dHBhdGll inB7N3JzPdonpMM+PC90YW KmAF05qQBubQEez7olePr5 IjYuNJCyUWF8oLdmDXxjt2 UwCZMmW45n gXGfl7X5XLHnwWqclLJkSq IdxDS6kC1tJGjatfpqp0fr ayasClggm1ajgm29rK86O8 9sIHdpZHRo RYGbMPSxVYIttIufqm3meS 9wIi8+XKLygXE9zOH7lZ7q HqJiOmU6MKgmP440YpGrnA WrAtymk0fq k5iihZk9GgNqGGAqjrAnfI kiWPL3y0PcCb94G73hJDxb ZHRoPSIyMCUiIHZhbGlnbj 9qyV9aYt9+ QJ9gl6bgpp82nG56oRU+PH AaCXS2iSxlVHftWGUwzY5r TCafUcP3UHChSnTklQ67nA BdYTfeOv6j kEtepFeiWS0wRFXzrxumy7 85RzPbg9cjKHCfiAEgDErb ZOD0A96fj3P8FMIoGQMqCC M6gWN2uA6u bGlnbjogbGVmdDsgdmVydG gaVWweTRbmM813BEKxeExg BfQzrFPlE2yjvkBTGE6bYa wvdGQ+PHRk KGZ5wFjxQShrVUEvxM4sJQ DlO0g4MhCmEmX0OBvfX4Zz kpU5XCQcxKRjTUQqpDUAlE 4nrbobd1gn halyExIyJMPtFCs9DOn8SW NlpRpmVmHvKPA1AfH8QCK8 lMMhyF3vkKbbekfunQ5zIp c+RklOOjwv dGQ+RNHgQEM8pGwaLYsjBN UrsQ9cALGlD5e7YlJdYeF6 AWluE6BjigB2YCDjgCNrPU VztXEJyP6r bqwqy2jsqhfhVbDzBSTzCA v8VUi4BKZoeYyrVvQzQNZ1 MiW2PEV1lKIpoU0ybVxyhr ibqY3pBks+ TVJOOjwvdGQ+HVBrATR7hK dkDMpeEJLgjO8mVFUzQ3c6 QoHbTcY7WKrkQ7UbdpH5QO JvbGQgMTBw kISNpA5cyxuus6wdobycXu BfBWIvJLj7OUp3NYLhaDqh UdZqTYP4TlU7YMX2iZVhuG 1hbGlnbjog cR1eJuh+XBY3GDL0JO12PT 56M3WfFfggjSZgvSN+PHRh YmxlIHdpZHRoPScxMDAlJy QpaRpxAG9a Ym9 (more content not included)... Normal [place] Provider Orderson 06-16-2022 Provider Orders [id number]#[id number] 0OTGTIFF [facility] US Venous, Unilat, Lower Ext Righton 06-12-2022 US Venous, Unilat, Lower Ext Right History: Pain, history of varicose vein surgery VENOUS DUPLEX ULTRASOUND OF THE RIGHT LOWER EXTREMITY CLINICAL HISTORY: Joint pain COMPARISON: NONE AVAILABLE TECHNIQUE: Sonographic imaging of the deep venous system of the right lower extremity was performed by a registered stone operator and the images were submitted for interpretation. [...] by RU RAMIRES on 06/12/2022 1248 Normal [facility] Specialist CBC AUTO DIFFon 06-02-2022 BASO # 0.0 103/ul Normal 0.0-0.1 [facility] Comment on above: Performed By: #### C BC ####[facility] [address] [place], [place] [address]EeNoemi Hartley Ceron Basophils/100 WBC (Bld) 0.4 % Normal 0.2-2.0 [facility] Comment on above: Performed By: #### C BC ####[facility] [address] [place] [id number]. Odilia Ceron EO # 0.1 103/ul Normal 0.0-0.7 [facility] Comment on above: Performed By: #### C BC ####[facility] [address] [place] [address]Dr. Odilia Ceron Eosinophils/100 WBC (Bld) 1.7 % Normal 0.9-7.0 [facility] Comment on above: Performed By: #### C BC ####[facility] [address] [place] [address]Dr. Odilia Ceron Erythrocyte distribution width (RBC) [Ratio] 20.5 % Critically high 11.0-15.0 [facility] Comment on above: Performed By: #### C BC ####[facility] [address] [place], [place] [address]Dr. Odilia Ceron Hematocrit (Bld) [Volume fraction] 32.1 % Critically low 36.0-48.0 [facility] Comment on above: Performed By: #### C BC ####[facility] [address] [place], [place] [address]Dr. Odilia Ceron Hemoglobin (Bld) [Mass/Vol] 10.1 g/dL Critically low 12.0-16.0 [facility] Comment on above: Performed By: #### C BC ####[facility] [address] [place], [place] [address]Dr. Odilia Ceron IG # 0.01 10e3/ul Normal 0.00-0.03 [facility] Comment on above: Performed By: #### C BC ####[facility] [address] [place], [place] [address]Dr. Odilia Ceron IG % 0.2 % Normal 0.0-0.5 [facility] Comment on above: Performed By: #### C BC ####[facility] [address] [place], [place] [address]Dr. Ijeomaanoop Ceron LYMPH # 1.9 103/ul Normal 1.2-3.8 [facility] Comment on above: Performed By: #### C BC ####[facility] [address] [place] [id number]. Ijeomaanoop Ceron Lymphocytes/100 WBC (Bld) 40.8 % Normal 20.5-60.0 [facility] Comment on above: Performed By: #### C BC ####[facility] [address] [place] [id number]. Odiila Ceron MANUAL DIFF REQ NO Normal [facility] Comment on above: Performed By: #### C BC ####[facility] [address] [place] [id number]. Odilia Ceron MCH (RBC) [Entitic mass] 25.9 pg Critically low 26.7-34.0 [facility] Comment on above: Performed By: #### C BC ####[facility] [address] [place] [address]Dr. Odilia Ceron MCHC (RBC) [Mass/Vol] 31.5 g/dL Normal 29.9-35.2 [facility] Comment on above: Performed By: #### C BC ####[facility] [address] [place] [id number]. Odilia Ceron MCV (RBC) [Entitic vol] 82.3 fL Normal 81.0-99.0 [facility] Comment on above: Performed By: #### C BC ####[facility] [address] [place] [id number]. Odilia Ceron MONO # 0.6 103/ul Normal 0.3-0.8 [facility] Comment on above: Performed By: #### C BC ####[facility] [address] [place] [id number]. Odilia Ceron Monocytes/100 WBC (Bld) 12.2 % Critically high 1.7-12.0 The [facility] Comment on above: Performed By: #### C BC ####[facility] [address] [place], [place] [address]DrNoemi Ceron NEUT # 2.1 103/ul Normal 1.4-6.5 [facility] Comment on above: Performed By: #### C BC ####[facility] [address] [place] [id number]. Odilia Ceron Neutrophils/100 WBC (Bld) 44.7 % Normal 43.0-75.0 [facility] Comment on above: Performed By: #### C BC ####[facility] [address] [place] [phone]. Odilia Ceron Platelet mean volume (Bld) [Entitic vol] 9.5 fL Normal 9.5-13.5 [facility] Comment on above: Performed By: #### C BC ####[facility] [address] [place] [id number]. Odilia Ceron PLT 337 103/ul Normal 150-450 [facility] Comment on above: Performed By: #### C BC ####[facility] [address] [place] [phone]. Odilia Ceron RBC 3.90 106/ul Critically low 4.20-5.40 [facility] Comment on above: Performed By: #### C BC ####[facility] [address] [place] [phone]. Odilia Ceron WBC 4.7 103/ul Normal 4.0-11.0 [facility] Comment on above: Performed By: #### C BC ####[facility] [address] [place] [phone]. Odilia Ceron FERRITINon 06-02-2022 Ferritin [Mass/Vol] 19.0 ng/mL Normal 8.0-252.0 [facility] Comment on above: Performed By: #### F T4, FETIBC, FERR ####[facility] [address] [place] [phone]. Odilia Ceron FREE T4on 06-02-2022 Free T4 [Mass/Vol] 0.74 ng/dL Critically low 0.76-1.46 Th [facility] Comment on above: Performed By: #### F T4, FETIBC, FERR ####[facility] [address] [place] [phone]. Odilia Ceron GLYCOHEMOGLOBIN A1Con 2021 ADA RECOMMENDATION SEE BELOW Normal [facility] Comment on above: Result Comment: ADA RECOMMENDED LIMIT 4.0 - 6.0 ADA THERAPEUTIC TARGET < 7.0 ACTION SUGGESTED > 7.0 Performed By: #### A 1C #### [facility] [address] [place] [address] [address] Odilia Ceron Glucose [Mass/Vol] 91 mg/dL Normal 74-106 [facility] Comment on above: Performed By: #### A 1C #### [facility] [address] [place] [address] [address] Odilia Ceron Performed By: #### T SH, LIPID, CMP #### [facility] [address] [place] [address] [address] Odilia Ceron HbA1c (Bld) [Mass fraction] 4.8 % Normal 4.5-6.2 [facility] Comment on above: Performed By: #### A 1C #### [facility] [address] [place] [address] [address] Odilia Ceron IRON AND TIBCon 06-02-2022 % SATURATION 5.4 % Normal [facility] Comment on above: Performed By: #### F T4, FETIBC, FERR ####[facility] [address] [place] [address]Dr. Odilia Ceron Iron [Mass/Vol] 19.0 ug/dL Critically low 50.0-170.0 [facility] Comment on above: Performed By: #### F T4, FETIBC, FERR ####[facility] [address] [place] [address]Dr. Odilia Ceron TIBC DIRECT 353.0 ug/dL Normal 250.0-450.0 [facility] Comment on above: Performed By: #### F T4, FETIBC, FERR ####[facility] [address] [place] [address]Dr. Odilia Ceron LIPID PROFILEon 06-02-2022 CHOL-HDL RATIO NORM SEE BELOW Normal [facility] Comment on above: Result Comment: 3.3 - 4.4 LOW RISK 4.4 - 7.1 AVERAGE RISK 7.1 - 11.0 MODERATE RISK >11.0 HIGH RISK Performed By: #### T SH, LIPID, CMP #### [facility] [address] [place] [address] [address] Odilia Ceron Cholesterol [Mass/Vol] 156 mg/dL Normal <=200 [facility] Comment on above: Performed By: #### T SH, LIPID, CMP #### [facility] [address] [place] [address] [address] Odilia Ceron Cholesterol in HDL [Mass/Vol] 50 mg/dL Normal 40-60 [facility] Comment on above: Performed By: #### T SH, LIPID, CMP #### [facility] [address] [place] [address] Dr. Odilia Ceron Cholesterol in LDL [Mass/Vol] 73.0 mg/dL Normal [facility] Comment on above: Performed By: #### T JAY, LIPID, CMP #### [facility] [address] [place] [address] Dr. Odilia Ceron Cholesterol.total/C holesterol in HDL [Mass ratio] 3.1 {ratio} Normal [facility] Comment on above: Performed By: #### T SH, LIPID, CMP #### [facility] [address] [place] [address] Dr. Odilia Ceron HDL NORMAL > or = 60 mg/dl - LO W CARDIOVASCULAR RISK <40 mg/dl - HIGH CARDIOVASCULAR RISK Normal [facility] Comment on above: Performed By: #### T SH, LIPID, CMP #### [facility] [address] [place] [address] Dr. Odiila Ceron LDL CALC NORMAL SEE BELOW Normal [facility] Comment on above: Result Comment: <100 mg/dl OPTIMAL 100 - 129 mg/dl NEAR OR ABOVE OPTIMAL 130 - 159 mg/dl BORDERLINE HIGH 160 - 189 mg/dl HIGH >190 mg/dl VERY HIGH Performed By: #### T SH, LIPID, CMP #### [facility] [address] [place] [address] Dr. Odilia Ceron Triglyceride [Mass/Vol] 165 mg/dL Critically high <=150 [facility] Comment on above: Performed By: #### T SH, LIPID, CMP #### [facility] [address] [place] [address] [address] Odilia Ceron VLDL CALC 33.0 mg/dL Normal [facility] Comment on above: Performed By: #### T SH, LIPID, CMP #### [facility] [address] [place] [address] [address] Odilia Ceron PROF 14(COMP METB)on 022 Albumin [Mass/Vol] 3.3 g/dL Critically low 3.4-5.0 Th e [facility] Comment on above: Performed By: #### T SH, LIPID, CMP #### [facility] [address] [place] [address] Dr. Odilia Ceron Albumin/Globulin [Mass ratio] 1.0 {ratio} Normal [facility] Comment on above: Performed By: #### T SH, LIPID, CMP #### [facility] [address] [place] [address] Dr. Odilia Ceron ALP [Catalytic activity/Vol] 90 U/L Normal 46-116 [facility] Comment on above: Performed By: #### T SH, LIPID, CMP #### [facility] [address] [place] [address] Dr. Odilia Ceron ALT [Catalytic activity/Vol] 25 U/L Normal 14-59 [facility] Comment on above: Performed By: #### T SH, LIPID, CMP #### [facility] [address] [place] [address] Dr. Odilia Ceron Anion gap [Moles/Vol] 10.0 mmol/L Normal [facility] Comment on above: Performed By: #### T SH, LIPID, CMP #### [facility] [address] [place] [address] Dr. Odilia Ceron AST [Catalytic activity/Vol] 25 U/L Normal 15-37 [facility] Comment on above: Performed By: #### T SH, LIPID, CMP #### [facility] [address] [place] [address] Dr. Odilia Ceron Bilirubin [Mass/Vol] 0.3 mg/dL Normal 0.2-1.0 [facility] Comment on above: Performed By: #### T SH, LIPID, CMP #### [facility] [address] [place] [address] Dr. Odilia Ceron Calcium [Mass/Vol] 8.9 mg/dL Normal 8.5-10.1 [facility] Comment on above: Performed By: #### T SH, LIPID, CMP #### [facility] [address] [place] [address] Dr. Odilia Ceron Chloride [Moles/Vol] 106 mmol/L Normal 98-107 [facility] Comment on above: Performed By: #### T SH, LIPID, CMP #### [facility] [address] [place] [address] Dr. Odilia Ceron CO2 [Moles/Vol] 30.0 mmol/L Normal 21.0-32.0 [facility] Comment on above: Performed By: #### T SH, LIPID, CMP #### [facility] [address] [place] [address] Dr. Odilia Ceron Creatinine [Mass/Vol] 0.83 mg/dL Normal 0.55-1.02 [facility] Comment on above: Performed By: #### T JAY, LIPID, CMP #### [facility] [address] [place] [address] Dr. Odilia Ceron EGFR-AF PUERTO RICAN >60 Normal >=60 [facility] Comment on above: Performed By: #### T SH, LIPID, CMP #### [facility] [address] [place] [address] Dr. Odilia Ceron EGFR-NON AF PUERTO RICAN >60 Normal >=60 [facility] Comment on above: Performed By: #### T SH, LIPID, CMP #### [facility] [address] [place] [address] Dr. Odilia Ceron Globulin (S) [Mass/Vol] 3.4 g/dL Normal [facility] Comment on above: Performed By: #### T SH, LIPID, CMP #### [facility] [address] [place] [address] Dr. Odilia Ceron Potassium [Moles/Vol] 4.0 mmol/L Normal 3.5-5.1 [facility] Comment on above: Performed By: #### T JAY LIPID, CMP #### [facility] [address] [place] [address] Dr. Odiila Ceron Protein [Mass/Vol] 6.7 g/dL Normal 6.4-8.2 [facility] Comment on above: Performed By: #### T JAY LIPID, CMP #### [facility] [address] [place] [address] Dr. Odilia Ceron Sodium [Moles/Vol] 142 mmol/L Normal 136-145 [facility] Comment on above: Performed By: #### T JAY LIPID, CMP #### [facility] [address] [place] [address] Dr. Odilia Ceron Urea nitrogen [Mass/Vol] 16.0 mg/dL Normal 7.0-18.0 [facility] Comment on above: Performed By: #### T JAY LIPID, CMP #### [facility] [address] [place] [address] Dr. Odilia Ceron Urea nitrogen/Creatinine [Mass ratio] 19.3 mg/mg Normal [facility] Comment on above: Performed By: #### T JAY LIPID, CMP #### [facility] [address] [place] [address] Dr. Odilia Ceron TSHon 06-02-2022 TSH 3.036 uIU/mL Normal 0.358-3.740 [facility] Comment on above: Performed By: #### T JAY LIPID, CMP #### [facility] [address] [place] [address] Dr. Odilia Ceron VC INJ SCL NAVI AUDITOR VEINSon 1 VC INJ SCL NAVI AUDITOR VEINS Patient: SHAUNA CHRISTENSEN Exam Date: 06/01/2022 : 1955 Gender:F Ordering : DR MAYANK MICHAEL M.D. Admission #: [id number] Family : Order #: [id number] CLICK HERE TO VIEW EXAM CORRECTION: changed veins injected Corrected on: 06/01/2022; RADIOLOGY REPORT PROCEDURE: VEIN CENTER INJECTION SCLEROSING SOLUTION MULTIPLE VEINS SAME COMPARISON: VC INJ SCL NAVI AUDITOR VEINS, 05/25/2022. VC INJ SCL NAVI AUDITOR VEINS, 05/19/2022. INDICATIONS: Pain co-occurrent and due [...] Michael MD on 06/01/2022 at 10:05 Normal [facility] VC INJ SCL NAVI AUDITOR VEINSon 1 07-26-2021 VC INJ SCL NAVI AUDITOR VEINS Patient: SHAUNA CHRISTENSEN Exam Date: 05/25/2022 : 1955 Gender:F Ordering : DR MAYANK MICHAEL M.D. Admission #: [id number] Family : Order #: [id number] CLICK HERE TO VIEW EXAM RADIOLOGY REPORT PROCEDURE: VEIN CENTER INJECTION SCLEROSING SOLUTION MULTIPLE VEINS SAME COMPARISON: VC INJ SCL NAVI AUDITOR VEINS, 05/19/2022. INDICATIONS: Pain co-occurrent and due [...] Candice Best M.D. on 05/25/2022 at 15:47 [facility] VC INJ SCL NAVI AUDITOR VEINSon 1 07-20-2021 VC INJ SCL NAVI AUDITOR VEINS Patient: SHAUNA CHRISTENSEN Exam Date: 05/19/2022 : 1955 Gender:F Ordering : DR MAYANK MICHAEL M.D. Admission #: [id number] Family : Order #: [id number] CLICK HERE TO VIEW EXAM RADIOLOGY REPORT [...] MD on 05/19/2022 at 08:33 Approved by: aMyank Michael MD on 05/19/2022 at 08:33 Normal [facility] VC CONSULT FOLLOWUPon 2021 VC CONSULT FOLLOWUP Patient: PRO CHRISTENSEN RA Exam Date: 05/05/2022 : 1955 Gender:F Ordering : DR MAYANK MICHAEL M.D. Admission #: [id number] Family : Order #: [id number] CLICK HERE TO VIEW EXAM RADIOLOGY REPORT [...] Michael MD on 05/05/2022 at 09:49 Normal [facility] VC EXT VENOUS RT LIMITEDon 1 07-06-2021 VC EXT VENOUS RT LIMITED Patient: SHAUNA CHRISTENSEN Exam Date: 05/05/2022 : 1955 Gender:F Ordering : DR MAYANK MICHAEL M.D. Admission #: [id number] Family : Order #: [id number] CLICK HERE TO VIEW EXAM RADIOLOGY REPORT [...] in varicose vein mid-distal thigh and associated registered nurse ambulatory. Stable thrombus in PTV 9 cm segment. [...] Michael MD on 05/05/2022 at 09:47 Normal [facility] VC INJ FOAM SCLERO W US MLTI on 05-01-2022 VC INJ FOAM SCLERO W US MLTI Patient: SHAUNA CHRISTENSEN Exam Date: 05/01/2022 : 1955 Gender:F Ordering : DR MAYANK MICHAEL M.D. Admission #: [id number] Family : Order #: [id number] CLICK HERE TO VIEW EXAM RADIOLOGY REPORT [...] Best M.D. on 05/01/2022 at 14:28 Normal [facility] VC CONSULT FOLLOWUPon 2021 VC CONSULT FOLLOWUP Patient: PRO CHRISTENSEN RA Exam Date: 04/24/2022 : 1955 Gender:F Ordering : DR MAYANK MICHAEL M.D. Admission #: [id number] Family : Order #: [id number] CLICK HERE TO VIEW EXAM RADIOLOGY REPORT [...] Michael MD on 04/24/2022 at 09:53 Normal [facility] VC EXT VENOUS RT LIMITEDon 1 06-24-2021 VC EXT VENOUS RT LIMITED Patient: SHAUNA CHRISTENSEN Exam Date: 04/24/2022 : 1955 Gender:F Ordering : DR MAYANK MICHAEL M.D. Admission #: [id number] Family : Order #: [id number] CLICK HERE TO VIEW EXAM RADIOLOGY REPORT [...] Michael MD on 04/24/2022 at 09:29 Normal [facility] VC INJ FOAM SCLERO W US MLTI on 04-17-2022 VC INJ FOAM SCLERO W US MLTI Patient: SHAUNA CHRISTENSEN Exam Date: 04/17/2022 : 1955 Gender:F Ordering : DR MAYANK MICHAEL M.D. Admission #: [id number] Family : Order #: [id number] CLICK HERE TO VIEW EXAM RADIOLOGY REPORT [...] anti-i (more content not included)... Normal [facility] VC CONSULT FOLLOWUPon 2021 VC CONSULT FOLLOWUP Patient: PRO CHRISTENSEN RA Exam Date: 03/24/2022 : 1955 Gender:F Ordering : DR MAYANK MICHAEL M.D. Admission #: [id number] Family : Order #: [id number] CLICK HERE TO VIEW EXAM RADIOLOGY REPORT [...] Michael MD on 03/24/2022 at 13:50 Normal [facility] VC EXT VENOUS RT LIMITEDon 1 VC EXT VENOUS RT LIMITED Patient: SHAUNA CHRISTENSEN Exam Date: 03/24/2022 : 1955 Gender:F Ordering : DR MAYANK MICHAEL M.D. Admission #: [id number] Family : Order #: [id number] CLICK HERE TO VIEW EXAM RADIOLOGY REPORT [...] Michael MD on 03/24/2022 at 11:15 Normal [facility] VC ENDOVENOUS ABL 1ST V RTon 03-21-2022 VC ENDOVENOUS ABL 1ST V RT Patient: SHAUNA CHRISTENSEN Exam Date: 03/21/2022 : 1955 Gender:F Ordering : DR MAYANK MICHAEL M.D. Admission #: [id number] Family : Order #: [id number] CLICK HERE TO VIEW EXAM RADIOLOGY REPORT PROCEDURE: VEIN CENTER ENDOVENOUS ABLATION FIRST VEIN RIGHT COMPARISON: VC ENDOVENOUS ABL 1ST V RT, 02/27/2022. INDICATIONS: Pain co-occurrent and due to varicose veins of bilateral legs I83.813 OPERATIVE REPORT: The risks and benefits of the procedure had been previously discussed, and were rediscussed at length. Informed written consent was obtained by and Dom Bergeron assisted. Time out procedure was performed. The right [...] Best M.D. on 03/21/2022 at 10:18 Normal [facility] OSMOLALITYon 03-13-2022 Osmolality [Osmolality] 291 mosm/kg Normal 280-301 [facility] Comment on above: Performed By: #### O SMO ####[facility] [address] [place] [address]Dr. Odilia Ceron OSMOLALITY URINEon 2 Osmolality, Urine 647 mOsmol/kg Normal [facility] Comment on above: Result Comment: 24 h r : 300 - 900 Random: 50 - 1400 After 12hr fluid restriction: >850 Performed By: #### O SMOU ####[facility] [address] [place] [address]Dr. Odilia Ceron CBC AUTO DIFFon 03-10-2022 BASO # 0.0 103/ul Normal 0.0-0.1 [facility] Comment on above: Performed By: #### C BC #### [facility] [address] [place] [address] Dr. Odilia Ceron Basophils/100 WBC (Bld) 0.6 % Normal 0.2-2.0 [facility] Comment on above: Performed By: #### C BC #### [facility] [address] [place] [address] Dr. Odilia Ceron EO # 0.2 103/ul Normal 0.0-0.7 [facility] Comment on above: Performed By: #### C BC #### [facility] [address] [place] [address] Dr. Odilia Ceron Eosinophils/100 WBC (Bld) 3.4 % Normal 0.9-7.0 [facility] Comment on above: Performed By: #### C BC #### [facility] [address] [place] [address] Dr. Odilia Ceron Erythrocyte distribution width (RBC) [Ratio] 17.7 % Critically high 11.0-15.0 [facility] Comment on above: Performed By: #### C BC #### [facility] [address] [place] [address] Dr. Odilia Ceron Hematocrit (Bld) [Volume fraction] 24.7 % Critically low 36.0-48.0 [facility] Comment on above: Performed By: #### C BC #### [facility] [address] [place] [address] Dr. Odilia Ceron Hemoglobin (Bld) [Mass/Vol] 7.2 g/dL Critically low 12.0-16.0 [facility] Comment on above: Performed By: #### C BC #### [facility] [address] [place] [address] Dr. Odilia Ceron IG # 0.02 10e3/ul Normal 0.00-0.03 [facility] Comment on above: Performed By: #### C BC #### [facility] [address] [place] [address] Dr. Odilia Ceron IG % 0.4 % Normal 0.0-0.5 [facility] Comment on above: Performed By: #### C BC #### [facility] [address] [place] [address] Dr. Odilia Ceron LYMPH # 2.3 103/ul Normal 1.2-3.8 [facility] Comment on above: Performed By: #### C BC #### [facility] [address] [place] [address] Dr. Odilia Ceron Lymphocytes/100 WBC (Bld) 45.5 % Normal 20.5-60.0 [facility] Comment on above: Performed By: #### C BC #### [facility] [address] [place] [address] Dr. Odilia Ceron MANUAL DIFF REQ NO Normal [facility] Comment on above: Performed By: #### C BC #### [facility] [address] [place] [address] Dr. Odilia Ceron MCH (RBC) [Entitic mass] 20.7 pg Critically low 26.7-34.0 [facility] Comment on above: Performed By: #### C BC #### [facility] [address] [place] [address] Dr. Odilia Ceron MCHC (RBC) [Mass/Vol] 29.1 g/dL Critically low 29.9-35.2 [facility] Comment on above: Performed By: #### C BC #### [facility] [address] [place] [address] Dr. Odilia Ceron MCV (RBC) [Entitic vol] 71.0 fL Critically low 81.0-99.0 [facility] Comment on above: Performed By: #### C BC #### [facility] [address] [place] [address] Dr. Odilia Ceron MONO # 0.6 103/ul Normal 0.3-0.8 [facility] Comment on above: Performed By: #### C BC #### [facility] [address] [place] [address] Dr. Odilia Ceron Monocytes/100 WBC (Bld) 11.6 % Normal 1.7-12.0 [facility] Comment on above: Performed By: #### C BC #### [facility] [address] [place] [address] Dr. Odilia Ceron NEUT # 1.9 103/ul Normal 1.4-6.5 [facility] Comment on above: Performed By: #### C BC #### [facility] [address] [address] [address] Odilia Ceron Neutrophils/100 WBC (Bld) 38.5 % Critically low 43.0-75.0 [facility] Comment on above: Performed By: #### C BC #### [facility] [address] [place] [address] Dr. Odilia Ceron Platelet mean volume (Bld) [Entitic vol] 9.4 fL Critically low 9.5-13.5 [facility] Comment on above: Performed By: #### C BC #### [facility] [address] [place] [address] Dr. Odilia Ceron PLT 384 103/ul Normal 150-450 [facility] Comment on above: Performed By: #### C BC #### [facility] [address] [place] [address] Dr. Odilia Ceron RBC 3.48 106/ul Critically low 4.20-5.40 [facility] Comment on above: Performed By: #### C BC #### [facility] [address] [place] [address] Dr. Odilia Ceron WBC 5.0 103/ul Normal 4.0-11.0 [facility] Comment on above: Performed By: #### C BC #### [facility] [address] [address] [address] Odilia Ceron GLYCOHEMOGLOBIN A1Con 2021 ADA RECOMMENDATION SEE BELOW Normal [facility] Comment on above: Result Comment: ADA RECOMMENDED LIMIT 4.0 - 6.0 ADA THERAPEUTIC TARGET < 7.0 ACTION SUGGESTED > 7.0 Performed By: #### A 1C ####[facility] [id number] [place] [address]Dr. Odilia Ceron Glucose [Mass/Vol] 103 mg/dL Normal [facility] Comment on above: Performed By: #### A 1C ####[facility] [address] [place], [place] [address]ZoDr. Odilia Ceron HbA1c (Bld) [Mass fraction] 5.2 % Normal 4.5-6.2 [facility] Comment on above: Performed By: #### A 1C ####[facility] [id number] [place] [id number]. Odilia Ceron LIPID PROFILEon 03-10-2022 CHOL-HDL RATIO NORM SEE BELOW Normal [facility] Comment on above: Result Comment: 3.3 - 4.4 LOW RISK 4.4 - 7.1 AVERAGE RISK 7.1 - 11.0 MODERATE RISK >11.0 HIGH RISK Performed By: #### L IPID, CMP #### [facility] [address] [address] [address] Odilia Ceron Cholesterol [Mass/Vol] 134 mg/dL Normal <=200 [facility] Comment on above: Performed By: #### L IPID, CMP #### [facility] [address] [address] [address] Odilia Ceron Cholesterol in HDL [Mass/Vol] 49 mg/dL Normal 40-60 [facility] Comment on above: Performed By: #### L IPID, CMP #### [facility] [address] [address] [address] Odilia Ceron Cholesterol in LDL [Mass/Vol] 67.4 mg/dL Normal [facility] Comment on above: Performed By: #### L IPID, CMP #### [facility] [address] [address] [address] Odilia Ceron Cholesterol.total/C holesterol in HDL [Mass ratio] 2.7 {ratio} Normal [facility] Comment on above: Performed By: #### L IPID, CMP #### [facility] [address] [address] [address] Odilia Ceron HDL NORMAL > or = 60 mg/dl - LO W CARDIOVASCULAR RISK <40 mg/dl - HIGH CARDIOVASCULAR RISK Normal [facility] Comment on above: Performed By: #### L IPID, CMP #### [facility] [address] [address] [address] Odilia Ceron LDL CALC NORMAL SEE BELOW Normal [facility] Comment on above: Result Comment: <100 mg/dl OPTIMAL 100 - 129 mg/dl NEAR OR ABOVE OPTIMAL 130 - 159 mg/dl BORDERLINE HIGH 160 - 189 mg/dl HIGH >190 mg/dl VERY HIGH Performed By: #### L IPID, CMP #### [facility] [address] [place] [address] Dr. Odilia Ceron Triglyceride [Mass/Vol] 88 mg/dL Normal <=150 [facility] Comment on above: Performed By: #### L IPID, CMP #### [facility] [address] [address] [address] Odilia Ceron VLDL CALC 17.6 mg/dL Normal [facility] Comment on above: Performed By: #### L IPID, CMP #### [facility] [address] [address] [address] Odilia Ceron PROF 14(COMP METB)on 022 Albumin [Mass/Vol] 3.5 g/dL Normal 3.4-5.0 [facility] Comment on above: Performed By: #### L IPID, CMP #### [facility] [address] [place] [address] Dr. Odilia Ceron Albumin/Globulin [Mass ratio] 1.1 {ratio} Normal [facility] Comment on above: Performed By: #### L IPID, CMP #### [facility] [address] [address] [address] Odilia Ceron ALP [Catalytic activity/Vol] 86 U/L Normal 46-116 [facility] Comment on above: Performed By: #### L IPID, CMP #### [facility] [address] [address] [address] Odilia Ceron ALT [Catalytic activity/Vol] 20 U/L Normal 14-59 [facility] Comment on above: Performed By: #### L IPID, CMP #### [facility] [address] [address] [address] Odilia Ceron Anion gap [Moles/Vol] 15.3 mmol/L Normal [facility] Comment on above: Performed By: #### L IPID, CMP #### [facility] [address] [place] [address] Dr. Odilia Ceron AST [Catalytic activity/Vol] 15 U/L Normal 15-37 [facility] Comment on above: Performed By: #### L IPID, CMP #### [facility] [address] [place] [address] Dr. Odilia Ceron Bilirubin [Mass/Vol] 0.5 mg/dL Normal 0.2-1.0 [facility] Comment on above: Performed By: #### L IPID, CMP #### [facility] [address] [place] [address] Dr. Odilia Ceron Calcium [Mass/Vol] 9.1 mg/dL Normal 8.5-10.1 [facility] Comment on above: Performed By: #### L IPID, CMP #### [facility] [address] [place] [address] Dr. Odilia Ceron Chloride [Moles/Vol] 127 mmol/L Critically high 98-107 [facility] Comment on above: Performed By: #### L IPID, CMP #### [facility] [address] [place] [address] Dr. Odilia Ceron CO2 [Moles/Vol] 28.1 mmol/L Normal 21.0-32.0 [facility] Comment on above: Performed By: #### L IPID, CMP #### [facility] [address] [place] [address] Dr. Odilia Ceron Creatinine [Mass/Vol] 0.90 mg/dL Normal 0.55-1.02 [facility] Comment on above: Performed By: #### L IPID, CMP #### [facility] [address] [place] [address] Dr. Odilia Ceron EGFR-AF PUERTO RICAN >60 Normal >=60 [facility] Comment on above: Performed By: #### L IPID, CMP #### [facility] [address] [address] [address] Odilia Ceron EGFR-NON AF PUERTO RICAN >60 Normal >=60 [facility] Comment on above: Performed By: #### L IPID, CMP #### [facility] [address] [address] [address] Odilia Ceron Globulin (S) [Mass/Vol] 3.3 g/dL Normal [facility] Comment on above: Performed By: #### L IPID, CMP #### [facility] [address] [address] [address] Odilia Ceron Glucose [Mass/Vol] 94 mg/dL Normal 74-106 [facility] Comment on above: Performed By: #### L IPID, CMP #### [facility] [address] [place] [address] Dr. Odilia Ceron Potassium [Moles/Vol] 5.0 mmol/L Normal 3.5-5.1 [facility] Comment on above: Performed By: #### L IPID, CMP #### [facility] [address] [address] [address] Odilia Ceron Protein [Mass/Vol] 6.8 g/dL Normal 6.4-8.2 [facility] Comment on above: Performed By: #### L IPID, CMP #### [facility] [address] [address] [address] Odilia Ceron Sodium [Moles/Vol] 162 mmol/L Critically high 136-145 [facility] Comment on above: Performed By: #### L IPID, CMP #### [facility] [address] [address] [address] Odilia Ceron Urea nitrogen [Mass/Vol] 22.0 mg/dL Critically high 7.0-18.0 [facility] Comment on above: Performed By: #### L IPID, CMP #### [facility] [address] [address] [address] Odilia Ceron Urea nitrogen/Creatinine [Mass ratio] 24.4 mg/mg Normal [facility] Comment on above: Performed By: #### L IPID, CMP #### [facility] [address] [address] [address] Odilia Ceron MG MAMM SCREEN 3D AMANDA CADon 03-06-2022 MG MAMM SCREEN 3D AMANDA CAD Patient: SHAUNA CHRISTENSEN Exam Date: 03/06/2022 : 1955 Gender:F Ordering : WERNER BEJARANO Admission #: [id number] Family : Order #: [id number] CLICK HERE TO VIEW EXAM RADIOLOGY REPORT [...] hodgkins cancer at age 33. LOCATION: [facility] BREAST COMPOSITION: Heterogeneously dense,which may obscure small [...] LUMP SHOULD BE BIOPSIED. Dictated by: Mayank Michael MD on 03/06/2022 at 10:27 Approved by: Mayank Michael MD on 03/06/2022 at 10:29 Normal [facility] VC CONSULT FOLLOWUPon 2021 VC CONSULT FOLLOWUP Patient: PRO CHRISTENSEN RA Exam Date: 03/03/2022 : 1955 Gender:F Ordering : DR MAYANK MICHAEL M.D. Admission #: [id number] Family : Order #: [id number] CLICK HERE TO VIEW EXAM RADIOLOGY REPORT [...] Michael MD on 03/03/2022 at 09:38 Normal [facility] VC EXT VENOUS RT LIMITEDon 0 03-03-2022 VC EXT VENOUS RT LIMITED Patient: SHAUNA CHRISTENSEN Exam Date: 03/03/2022 : 1955 Gender:F Ordering : DR MAYANK MICHAEL M.D. Admission #: [id number] Family : Order #: [id number] CLICK HERE TO VIEW EXAM RADIOLOGY REPORT [...] to thrombus *Exam performed in accordance with [facility] practice guidelines- Peripheral venous ultrasound, August 28, 2009. 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 No deep vein thrombus Dictated by: Mayank Michael MD on 03/03/2022 at 09:21 Approved by: Mayank Michael MD on 03/03/2022 at 09:22 Normal [facility] VC ENDOVENOUS ABL 1ST V RTon 02-27-2022 VC ENDOVENOUS ABL 1ST V RT Patient: SHAUNA CHRISTENSEN Exam Date: 02/27/2022 : 1955 Gender:F Ordering : DR MAYANK MICHAEL M.D. Admission #: [id number] Family : Order #: [id number] CLICK HERE TO VIEW EXAM RADIOLOGY REPORT PROCEDURE: VEIN CENTER ENDOVENOUS ABLATION FIRST VEIN RIGHT GREAT SAPHENOUS VEIN COMPARISON: None. INDICATIONS: Pain co-occurrent and due to varicose veins of bilateral legs I83.813 OPERATIVE REPORT: The risks and benefits of the procedure had been previously discussed, and were rediscussed at length. Informed written consent was obtained by me and Dom Bergeron assisted. Time out procedure was performed. The right [...] Michael MD on 02/27/2022 at 09:29 Normal [facility] IMAGE-GUIDED PAP W/AGE BASED SCR PROTOCOLSon 02-10-2022 COMMENT Normal [facility] Comment on above: Result Comment: This order for age-based cervical cancer and STI screening follows ACOG guidelines(PB 168, 140, FIC152). See individual assays for performing site location. Performed By: #### 5 [id number] #### [facility]-[address] [place] [address] Network Systems Administrator: Piter Cortes MD #### [id number], [id number] #### [facility] [address] [address] Network Systems Administrator: Piter Cortes MD Result Comment: EXPL ANATORY [...] TIQ DOCU MENTATIONon 02-10-2022 CONTACT DANIELLE CASAREZ [facility] Normal [facility] Comment on above: Performed By: #### 5 [id number], [id number] #### [facility]-[address], [address] [place] [address] Network Systems Administrator: Piter Cortes MD #### [id number], [id number] #### [facility] [address], [address] [place] [address] Network Systems Administrator: Piter Cortes MD TESTS AFFECTED [id number] Normal [facility] Comment on above: Performed By: #### 5 8315, [id number] #### [facility]-[address], [address] [place] [address] Network Systems Administrator: Piter Cortes MD #### [id number], [id number] #### [facility] [address], [address] [place] [address] Network Systems Administrator: Piter Cortes MD TEST IN QUESTION - CYTOLOGY n 02-10-2022 CONTAINER TYPE: TP Normal [facility] Comment on above: Performed By: #### 5 8315, [id number] #### [facility]-[address], [address] [place] [address] Network Systems Administrator: Piter Cortes MD #### [id number], [id number] #### [facility] [address], [address] [place] [address] Network Systems Administrator: Piter Cortes MD QUESTION/PROBLEM Normal [facility] Comment on above: Result Comment: MUL FORM RECEIVED Performed By: #### 5 8315, [id number] #### [facility]-[address], [address] [place] [address] Network Systems Administrator: Piter Cortes MD #### [id number], [id number] #### [facility] [address], [address] [place], [place] [phone] Network Systems Administrator: Piter Cortes MD THINPREP TIS PAPon 2 CLINICAL INFORMATION: Normal [facility] Comment on above: Result Comment: None given Performed By: #### 5 8315, [id number] #### [facility]-[address], [address] [employer], [place] [phone] Network Systems Administrator: Piter Cortes MD #### [id number], [id number] #### [facility] [address], [address] [place], [place] [phone] Network Systems Administrator: Piter Cortes MD COMMENT: Normal [facility] [...] not recommended. 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 Performed By: #### 5 8315, 57269 #### [facility]-[address], [address] [employer], [place] [phone] Network Systems Administrator: Piter Cortes MD #### [id number], 90068 #### [facility] [address], [address] [place], [place] [phone] Network Systems Administrator: Piter Cortes MD INTERPRETATION/RESU LT: Normal [facility] Comment on above: Result Comment: Nega tive for intraepithelial lesion or malignancy. Atrophic pattern; predominantly parabasal cells Performed By: #### 5 8315, [id number] #### [facility]-[address], [address] [employer], [place] [phone] Network Systems Administrator: Piter Cortes MD #### [id number], [id number] #### [facility] of [address], [address] [place] [address] Network Systems Administrator: Piter Cortes MD LMP: Normal [facility] Comment on above: Result Comment: None given Performed By: #### 5 8315, 55061 #### [facility]-[address], [address] [place] [address] Network Systems Administrator: Piter Cortes MD #### [id number], [id number] #### [facility] [address], [address] [place] [address] Network Systems Administrator: Piter Cortes MD PREV. BX: Normal [facility] Comment on above: Result Comment: None given Performed By: #### 5 8315, 27581 #### [facility]-[address], [address] [place] [address] Network Systems Administrator: Piter Cortes MD #### [id number], [id number] #### [facility] of [address], [address] [place] [address] Network Systems Administrator: Piter Cortes MD PREV. PAP: Normal [facility] Comment on above: Result Comment: None given Performed By: #### 5 8315, 71907 #### [facility]-[address], [address] [place] [address] Network Systems Administrator: Piter Cortes MD #### [id number], [id number] #### [facility] of [address], [address] [place], [place] [phone] Network Systems Administrator: Piter Cortes MD SOURCE: Normal [facility] Comment on above: Result Comment: None given Performed By: #### 5 8315, 75389 #### [facility]-[address] [address], [address] [facility] [place] [address] Network Systems Administrator: Piter Cortes MD #### [id number], [id number] #### [facility] [address], 4 [place] [address] Network Systems Administrator: Piter Cortes MD STATEMENT OF ADEQUACY: Normal [facility] Comment on above: Result Comment: SATI SFACTORY FOR EVALUATION Performed By: #### 5 [id number], [id number] #### [facility]-[address], 4 [place] [address] Network Systems Administrator: Piter Cortes MD #### [id number], [id number] #### [facility] [address], 4 [place] [address] Network Systems Administrator: Piter Cortes MD VC COMP CONSULTATIONon 01-06 VC COMP CONSULTATION Patient: SHAUNA CHRISTENSEN Exam Date: 01/06/2022 : 1955 Gender:F Ordering : DR MAYANK MICHAEL M.D. Admission #: [id number] Family : Order #: [id number] CLICK HERE TO VIEW EXAM RADIOLOGY REPORT [...] with multiple incompetent branch varicosities and several registered nurse ambulatory veins. Left leg demonstrates dilated, incompetent great saphenous vein proximally with a few tiny dilated mid calf registered nurse ambulatory veins and incompetent branch saphenous varicosities. PHYSICAL [...] arterial disease 5. CEAP: C3, EC, AP, SD PLAN: 1. Continued use of compression stockings [...] Best M.D. on 01/06/2022 at 11:45 Normal [facility] VC VENOUS REFLUX AMANDA LMTon 0 01-06-2022 VC VENOUS REFLUX AMANDA LMT Patient: SHAUNA CHRISTENSEN Exam Date: 01/06/2022 : 1955 Gender:F Ordering : DR MAYANK MICHAEL M.D. Admission #: [id number] Family : Order #: [id number] CLICK HERE TO VIEW EXAM RADIOLOGY REPORT [...] chronic thrombus visualized Compressibility: Normal Flow: Normal [employer] Furniture: Dist/med calf 3.1mm with 0s reflux. Mid/med calf 4.2mm with 0s reflux. Tech Note: Incompetent SFJ and GSV. Patent varicose vein prox/med calf 5.5mm with 1.0s reflux. Patent varicose vein prox med thigh 3.2mm with 0s reflux. CONCLUSION: 1. 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 2. Incompetent registered nurse ambulatory veins within the right calf. 3. Left lower extremity demonstrates dilated great saphenous and anterior accessory saphenous veins, but no significant reflux. 4. Consultation for endovenous ablation is recommended. Dictated by: Candice Best M.D. on 01/06/2022 at 11:14 Approved by: Candice Best M.D. on 01/06/2022 at 11:20 Normal [facility] MAGNESIUMon 11-26-2021 Magnesium [Mass/Vol] 2.2 mg/dL Normal 1.5-2.5 [facility] Comment on above: Order Comment: FASTI NG:NO FASTING: NO Performed By: #### 6 22 #### [facility] [address], [address] [place] [id number] Network Systems Administrator: Piter Cortes MD XR CHEST 2 Von [...] ALTON BARRERA Date: 2021-11-25 12:49 Normal [facility] COMPREHENSIVE METABOLIC PANE [place] 08-20-2021 Albumin [Mass/Vol] 4.1 g/dL Normal 3.6-5.1 [facility] Comment on above: Performed By: #### 5 [id number], [id number], 7290 #### [facility] [address], 4 [place] [address] Network Systems Administrator: Piter Cortes MD Albumin/Globulin [Mass ratio] 1.5 {ratio} Normal 1.0-2.5 [facility] Comment on above: Performed By: #### 5 [id number], 02656, 7600 #### [facility] of [address], [address] [place] [address] Network Systems Administrator: Piter Cortes MD ALP [Catalytic activity/Vol] 86 U/L Normal 37-153 [facility] Comment on above: Performed By: #### 5 [id number], [id number], 0 #### [facility] of [address], [address] [place] [address] Network Systems Administrator: Piter Cortes MD ALT [Catalytic activity/Vol] 13 U/L Normal 6-29 [facility] Comment on above: Performed By: #### 5 [id number], 05392, 0 #### [facility] of [address], [address] [place] [address] Network Systems Administrator: Piter Cortes MD AST [Catalytic activity/Vol] 17 U/L Normal 10-35 [facility] Comment on above: Performed By: #### 5 [id number], 78629, 0 #### [facility] of [place] [address] Network Systems Administrator: Piter Cortes MD Bilirubin [Mass/Vol] 0.5 mg/dL Normal 0.2-1.2 [facility] Comment on above: Performed By: #### 5 8984, 16862, 0 #### [facility] of [address], [address] [place] [address] Network Systems Administrator: Piter Cortes MD BUN/CREATININE RATIO NOT APPLICABLE Normal 6-22 [facility] Comment on above: Performed By: #### 5 [id number], 93303, 7600 #### [facility] of [place] [address] Network Systems Administrator: Piter Cortes MD Calcium [Mass/Vol] 9.2 mg/dL Normal 8.6-10.4 [facility] Comment on above: Performed By: #### 5 8984, 52340, 0 #### [facility] of [address], [address] [place] [address] Network Systems Administrator: Piter Cortes MD Chloride [Moles/Vol] 106 mmol/L Normal 98-110 [facility] Comment on above: Performed By: #### 5 8984, 31524, 7600 #### [facility] [address], [address] [place] [address] Network Systems Administrator: Piter Cortes MD CO2 [Moles/Vol] 26 mmol/L Normal 20-32 [facility] Comment on above: Performed By: #### 5 8984, 30353, 0 #### [facility] [address], [address] [place] [address] Network Systems Administrator: Piter Cortes MD Creatinine [Mass/Vol] 0.75 mg/dL Normal 0.50-0.99 [facility] Comment on above: Result Comment: For patients >49 years of age, the reference limit for Creatinine is approximately 13% higher for people identified as -Nepalese. Performed By: #### 5 8984, , 0 #### [facility] [address], [address] [place] [address] Network Systems Administrator: Piter Cortes MD eGFR NON-AFR. PUERTO RICAN 82 mL/min/1.73m2 Normal > OR = 60 [facility] Comment on above: Performed By: #### 5 8984, 90571, 0 #### [facility] [address], [address] [place] [address] Network Systems Administrator: Piter Cortes MD GFR/1.73 sq M.predicted among blacks MDRD (S/P/Bld) [Vol rate/Area] 96 mL/min/{1.73_m2} Normal > OR = 60 [facility] Comment on above: Performed By: #### 5 [id number], 36820, 7600 #### [facility] of [address], [address] [place] [address] Network Systems Administrator: Piter Cortes MD Globulin (S) [Mass/Vol] 2.7 g/dL Normal 1.9-3.7 [facility] Comment on above: Performed By: #### 5 8984, 49372, 0 #### [facility] [place] [address] Network Systems Administrator: Piter Cortes MD Glucose [Mass/Vol] 138 mg/dL Normal 65-139 [facility] Comment on above: Result Comment: Non-fasting reference interval For someone without known diabetes, a glucose value >125 mg/dL indicates that they may have diabetes and this should be confirmed with a follow-up test. Performed By: #### 5 8984, 71460, 0 #### [facility] [place] [address] Network Systems Administrator: Piter Cortes MD Potassium [Moles/Vol] 4.0 mmol/L Normal 3.5-5.3 [facility] Comment on above: Performed By: #### 5 8984, , 0 #### [facility] [place] [address] Network Systems Administrator: Piter Cortes MD Protein [Mass/Vol] 6.8 g/dL Normal 6.1-8.1 [facility] Comment on above: Performed By: #### 5 8984, , 0 #### [facility] [place] [address] Network Systems Administrator: Piter Cortes MD Sodium [Moles/Vol] 140 mmol/L Normal 135-146 [facility] Comment on above: Performed By: #### 5 8984, 48902, 0 #### [facility] [place] [address] Network Systems Administrator: Piter Cortes MD Urea nitrogen [Mass/Vol] 19 mg/dL Normal 7-25 [facility] Comment on above: Performed By: #### 5 8984, 28111, 7600 #### [facility] [place] [address] Network Systems Administrator: Piter Cortes MD LIPID PANEL, [facility] 08-02 Cholesterol [Mass/Vol] 205 mg/dL High <200 [facility] Comment on above: Order Comment: FASTI NG:NO FASTING: NO Performed By: #### 5 8984, 03073, 7600 #### [facility] [address], [address] [place] [address] Network Systems Administrator: Piter Cortes MD Cholesterol in HDL [Mass/Vol] 52 mg/dL Normal > OR = 50 [facility] Comment on above: Order Comment: FASTI NG:NO FASTING: NO Performed By: #### 5 8984, 44308, 7600 #### [facility] [address], [address] [place] [address] Network Systems Administrator: Piter Cortes MD Cholesterol in LDL [Mass/Vol] [...] LDL-C. Too SS et al. KANE. 2013;310(19): 8659-9502 (http://education.Yoono/faq/UGC830) Performed By: #### 5 8984, 04047, 1250 #### [facility] [address], [address] [place] [address] Network Systems Administrator: Piter Cortes MD Cholesterol.total/C holesterol in HDL [Mass ratio] 3.9 {ratio} Normal <5.0 [facility] Comment on above: Order Comment: FASTI NG:NO FASTING: NO Performed By: #### 5 8984, 41784, 7600 #### [facility] [address], [address] [place] [address] Network Systems Administrator: Piter Cortes MD NON HDL CHOLESTEROL 153 mg/dL (calc) High <130 [facility] Comment on above: Order Comment: FASTI NG:NO FASTING: NO Result Comment: For patients with diabetes plus 1 major ASCVD risk factor, treating to a non-HDL-C goal of <100 mg/dL (LDL-C of <70 mg/dL) is considered a therapeutic option. Performed By: #### 5 8984, 19195, 0 #### [facility] [place] [address] Network Systems Administrator: Piter Cortes MD Triglyceride [Mass/Vol] 236 mg/dL High <150 [facility] Comment on above: Order Comment: FASTI NG:NO FASTING: NO Result Comment: If a non-fasting specimen was collected, consider repeat triglyceride testing on a fasting specimen if clinically indicated. Meneses et al. J. of Clin. Lipidol. 2015;9:129-169. Performed By: #### 5 8984, 55832, 0 #### [facility] [place] [address] Network Systems Administrator: Piter Cortes MD TSH+FREE T4 08-20-2021 Free T4 [Mass/Vol] 0.9 ng/dL Normal 0.8-1.8 [facility] Comment on above: Performed By: #### 5 8984, 62908, 0 #### [facility] [place] [address] Network Systems Administrator: Piter Cortes MD TSH Qn 1.53 m[IU]/L Normal 0.40-4.50 [facility] Comment on above: Performed By: #### 5 8984, 66378, 0 #### [facility] [place] [address] Network Systems Administrator: Piter Cortes MD Vital Signs Date Time Vital Sign Value Performing Clinician Facility 02-18-2025 13:25-0400 Body height 165.1 cm [employer] Work Phone: [facility] 02-18-2025 13:25-0400 Body mass index (BMI) [Ratio] 30.4 kg/m2 [employer] Work Phone: [facility] 02-18-2025 13:25-0400 Body weight 83 kg Pedro Furlong DO Work Phone: [facility] 02-18-2025 13:25-0400 Diastolic blood pressure 75 mm[Hg] Pedro Furlong DO Work Phone: [facility] 02-18-2025 13:25-0400 Heart rate 86 /min Pedro Furlong DO Work Phone: [facility] 02-18-2025 13:25-0400 Systolic blood pressure 104 mm[Hg] Pedro Furlong DO Work Phone: [facility] 01-12-2025 09:17-0400 Body temperature 98.1 [degF] Chair Evelyn Work Phone: [facility] 01-12-2025 09:17-0400 Diastolic blood pressure 74 mm[Hg] Chair Evelyn Work Phone: [facility] 01-12-2025 09:17-0400 Heart rate 63 /min Chair Leeds Work Phone: [facility] 01-12-2025 09:17-0400 Respiratory rate 18 /min Chair Leeds Work Phone: [facility] 01-12-2025 09:17-0400 SaO2% (BldA) [Mass fraction] 99 % Chair Leeds Work Phone: [facility] 01-12-2025 09:17-0400 Systolic blood pressure 116 mm[Hg] Chair Leeds Work Phone: [facility] 01-05-2025 09:45-0400 Body temperature 98.71 [degF] Chair Evelyn Work Phone: [facility] 01-05-2025 09:45-0400 Diastolic blood pressure 70 mm[Hg] Chair Evelyn Work Phone: [facility] 01-05-2025 09:45-0400 Heart rate 67 /min Chair Leeds Work Phone: [facility] 01-05-2025 09:45-0400 Respiratory rate 16 /min Chair Evelyn Work Phone: [facility] 01-05-2025 09:45-0400 SaO2% (BldA) [Mass fraction] 99 % Chair Leeds Work Phone: [facility] 01-05-2025 09:45-0400 Systolic blood pressure 131 mm[Hg] Chair Leeds Work Phone: [facility] 12-29-2024 09:31-0400 Body temperature 98.1 [degF] Chair Leeds Work Phone: [facility] 12-29-2024 09:31-0400 Diastolic blood pressure 70 mm[Hg] Chair Leeds Work Phone: [facility] 12-29-2024 09:31-0400 Heart rate 67 /min Chair Leeds Work Phone: [facility] 12-29-2024 09:31-0400 Respiratory rate 16 /min Chair Evelyn Work Phone: [facility] 12-29-2024 09:31-0400 SaO2% (BldA) [Mass fraction] 98 % Chair Leeds Work Phone: [facility] 12-29-2024 09:31-0400 Systolic blood pressure 122 mm[Hg] Chair Leeds Work Phone: [facility] 12-22-2024 08:30-0400 Body mass index (BMI) [Ratio] 33.29 kg/m2 Suzie Amanda PA-C Work Phone: [facility] 12-22-2024 08:30-0400 Body temperature 97.59 [degF] Suzie Amanda PA-C Work Phone: [facility] 12-22-2024 08:30-0400 Body weight 84.8 kg Suzie Amanda PA-C Work Phone: [facility] 12-22-2024 08:30-0400 Diastolic blood pressure 80 mm[Hg] Suzie Dugganer PA-C Work Phone: [facility] 12-22-2024 08:30-0400 Heart rate 66 /min Suzieaurea Dugganer PA-C Work Phone: [facility] 12-22-2024 08:30-0400 Respiratory rate 16 /min Suzie Amanda PA-C Work Phone: [facility] 12-22-2024 08:30-0400 SaO2% (BldA) [Mass fraction] 98 % Suzie Amanda PA-C Work Phone: [facility] 12-22-2024 08:30-0400 Systolic blood pressure 144 mm[Hg] Suzie Amanda PA-C Work Phone: [facility] 12-11-2024 13:35-0400 Body height 157.5 cm Pedro Furlong DO Work Phone: [facility] 12-11-2024 13:35-0400 Body mass index (BMI) [Ratio] 34.33 kg/m2 Pedro Furlong DO [facility] 12-11-2024 13:35-0400 Body weight 85.14 kg Pedro Furlong DO [facility] 12-11-2024 13:35-0400 Diastolic blood pressure 82 mm[Hg] Pedro Furlong [facility] 12-11-2024 13:35-0400 Systolic blood pressure 126 mm[Hg] Pedro Furlong DO [facility] 10-03-2024 10:30-0400 Body height 160 cm Pedro Furlong DO [facility] 10-03-2024 10:30-0400 Body mass index (BMI) [Ratio] 32.96 kg/m2 Pedro Furlong DO [facility] 10-03-2024 10:30-0400 Body temperature 97 [degF] Pedro Furlong DO [facility] 10-03-2024 10:30-0400 Body weight 84.37 kg Pedro Furlong DO [facility] 10-03-2024 10:30-0400 Diastolic blood pressure 82 mm[Hg] Pedro Furlong DO [facility] 10-03-2024 10:30-0400 Heart rate 58 /min Pedro Furlong DO [facility] 10-03-2024 10:30-0400 Respiratory rate 18 /min Pedro Furlong DO [facility] 10-03-2024 10:30-0400 SaO2% (BldA) [Mass fraction] 99 % Pedro Furlong DO [facility] 10-03-2024 10:30-0400 Systolic blood pressure 126 mm[Hg] Pedro Furlong DO Work Phone: [facility] [employer] 09-17-2024 10:35-0400 Body height 159.6 cm Suzie Dugganer PA-C Work Phone: [facility] 09-17-2024 10:35-0400 Body mass index (BMI) [Ratio] 33.6 kg/m2 Suzie Amanda PA-C Work Phone: [facility] 09-17-2024 10:35-0400 Body temperature 97.3 [degF] Suzie Amanda PA-C Work Phone: [facility] 09-17-2024 10:35-0400 Body weight 85.6 kg Suzie Amanda PA-C Work Phone: [facility] 09-17-2024 10:35-0400 Diastolic blood pressure 79 mm[Hg] Suzie Amanda PA-C Work Phone: [facility] 09-17-2024 10:35-0400 Heart rate 63 /min Suzie Amanda PA-C Work Phone: [facility] 09-17-2024 10:35-0400 Respiratory rate 16 /min Suzie Amanda PA-C Work Phone: [facility] 09-17-2024 10:35-0400 SaO2% (BldA) [Mass fraction] 100 % Suzie Amanda PA-C Work Phone: [facility] 09-17-2024 10:35-0400 Systolic blood pressure 138 mm[Hg] Suzie Amanda PA-C Work Phone: [facility] 06-19-2024 15:00-0500 Body temperature 97.7 [degF] Chair Leeds Work Phone: [facility] 06-19-2024 15:00-0500 Diastolic blood pressure 75 mm[Hg] Chair Leeds Work Phone: [facility] 06-19-2024 15:00-0500 Heart rate 72 /min Chair Leeds Work Phone: [facility] 06-19-2024 15:00-0500 Respiratory rate 18 /min Chair Leeds Work Phone: [facility] 06-19-2024 15:00-0500 SaO2% (BldA) [Mass fraction] 100 % Chair Leeds Work Phone: [facility] 06-19-2024 15:00-0500 Systolic blood pressure 114 mm[Hg] Chair Evelyn Work Phone: [facility] 06-13-2024 14:20-0500 Body temperature 97.7 [degF] Chair Leeds Work Phone: [facility] 06-13-2024 14:20-0500 Diastolic blood pressure 80 mm[Hg] Chair Evelyn Work Phone: [facility] 06-13-2024 14:20-0500 Heart rate 83 /min Chair Evelyn Work Phone: [facility] 06-13-2024 14:20-0500 Respiratory rate 18 /min Chair Evelyn Work Phone: [facility] 06-13-2024 14:20-0500 SaO2% (BldA) [Mass fraction] 100 % Chair Leeds Work Phone: [facility] 06-13-2024 14:20-0500 Systolic blood pressure 128 mm[Hg] Chair Evelyn Work Phone: [facility] 06-06-2024 12:49-0500 Body temperature 98.4 [degF] Chair Leeds Work Phone: [facility] 06-06-2024 12:49-0500 Diastolic blood pressure 80 mm[Hg] Chair Leeds Work Phone: [facility] 06-06-2024 12:49-0500 Heart rate 69 /min Chair Leeds Work Phone: [facility] 06-06-2024 12:49-0500 Respiratory rate 18 /min Chair Leeds Work Phone: [facility] 06-06-2024 12:49-0500 SaO2% (BldA) [Mass fraction] 96 % Chair Evelyn Work Phone: [facility] 06-06-2024 12:49-0500 Systolic blood pressure 145 mm[Hg] Chair Leeds Work Phone: [facility] 05-30-2024 09:46-0500 Body temperature 97.9 [degF] Chair Evelyn Work Phone: [facility] 05-30-2024 09:46-0500 Diastolic blood pressure 76 mm[Hg] Chair Leeds Work Phone: [facility] 05-30-2024 09:46-0500 Heart rate 68 /min Chair Evelyn Work Phone: [facility] 05-30-2024 09:46-0500 Respiratory rate 18 /min Chair Evelyn Work Phone: [facility] 05-30-2024 09:46-0500 SaO2% (BldA) [Mass fraction] 99 % Chair Leeds Work Phone: [facility] 05-30-2024 09:46-0500 Systolic blood pressure 133 mm[Hg] Chair Leeds Work Phone: [facility] 05-22-2024 13:21-0500 Body temperature 97.3 [degF] Chair Leeds Work Phone: [facility] 05-22-2024 13:21-0500 Diastolic blood pressure 77 mm[Hg] Chair Leeds Work Phone: [facility] 05-22-2024 13:21-0500 Heart rate 75 /min Chair Leeds Work Phone: [facility] 05-22-2024 13:21-0500 Respiratory rate 16 /min Chair Evelyn Work Phone: [facility] 05-22-2024 13:21-0500 SaO2% (BldA) [Mass fraction] 97 % Chair Leeds Work Phone: [facility] 05-22-2024 13:21-0500 Systolic blood pressure 136 mm[Hg] Chair Evelyn Work Phone: [facility] 05-15-2024 10:36-0500 Body height 159.6 cm Suzie Amanda PA-C Work Phone: [facility] 05-15-2024 10:36-0500 Body mass index (BMI) [Ratio] 32.54 kg/m2 Suzie Amanda PA-C Work Phone: [facility] 05-15-2024 10:36-0500 Body temperature 97.5 [degF] Suzie Amanda PA-C Work Phone: [facility] 05-15-2024 10:36-0500 Body weight 82.9 kg Suzie Amanda PA-C Work Phone: [facility] 05-15-2024 10:36-0500 Diastolic blood pressure 83 mm[Hg] Suzie Amanda PA-C Work Phone: [facility] 05-15-2024 10:36-0500 Heart rate 70 /min Suzie Amanda PA-C Work Phone: [facility] 05-15-2024 10:36-0500 Respiratory rate 16 /min Suzie Amanda PA-C Work Phone: [facility] 05-15-2024 10:36-0500 SaO2% (BldA) [Mass fraction] 99 % Suzie Amanda PA-C Work Phone: [facility] 05-15-2024 10:36-0500 Systolic blood pressure 144 mm[Hg] Suzie Amanda PA-C Work Phone: [facility] 03-31-2024 14:15-0400 Body height 159.6 cm Suzie Amanda PA-C Work Phone: [facility] 03-31-2024 14:15-0400 Body mass index (BMI) [Ratio] 32.27 kg/m2 Suzie Amanda PA-C Work Phone: [facility] 03-31-2024 14:15-0400 Body temperature 97.9 [degF] Suzie Amanda PA-C Work Phone: [facility] 03-31-2024 14:15-0400 Body weight 82.2 kg Suzie Amanda PA-C Work Phone: [facility] 03-31-2024 14:15-0400 Diastolic blood pressure 81 mm[Hg] Suzie Amanda PA-C Work Phone: [facility] 03-31-2024 14:15-0400 Heart rate 86 /min Suzie Amanda PA-C Work Phone: [facility] 03-31-2024 14:15-0400 Respiratory rate 16 /min Suzie Patel PA-C Work Phone: [facility] 03-31-2024 14:15-0400 SaO2% (BldA) [Mass fraction] 98 % Suzie Patel PA-C Work Phone: [facility] 03-31-2024 14:15-0400 Systolic blood pressure 144 mm[Hg] Suzie Patel PA-C Work Phone: [facility] 01-17-2024 13:24-0400 Body height 160 cm Pedro [facility]long DO [facility] 01-17-2024 13:24-0400 Body mass index (BMI) [Ratio] 32.1 kg/m2 Pedro Furlong DO [facility] 01-17-2024 13:24-0400 Body temperature 98.71 [degF] Pedro Furlong DO [facility] 01-17-2024 13:24-0400 Body weight 82.19 kg Pedro Furlong DO [facility] 01-17-2024 13:24-0400 Diastolic blood pressure 80 mm[Hg] Pedro Furlong DO [facility] 01-17-2024 13:24-0400 Heart rate 86 /min Pedro Furlong DO [facility] 01-17-2024 13:24-0400 Respiratory rate 20 /min Pedro Furlong DO [facility] 01-17-2024 13:24-0400 SaO2% (BldA) [Mass fraction] 96 % Pedro Furlong DO [facility] 01-17-2024 13:24-0400 Systolic blood pressure 124 mm[Hg] Pedro Furlong DO Work Phone: [facility] 01-16-2024 09:09-0400 Body height 165.1 cm [facility] 01-16-2024 09:09-0400 Body mass index (BMI) [Ratio] 30 kg/m2 [facility] 01-16-2024 09:09-0400 Body temperature 97.8 [degF] [facility] 01-16-2024 09:09-0400 Body weight 81.87 kg [facility] 01-16-2024 09:09-0400 Diastolic blood pressure 70 mm[Hg] [facility] 01-16-2024 09:09-0400 Heart rate 75 /min [facility] 01-16-2024 09:09-0400 Respiratory rate 18 /min [facility] 01-16-2024 09:09-0400 SaO2% (BldA) [Mass fraction] 99 % [facility] 01-16-2024 09:09-0400 Systolic blood pressure 157 mm[Hg] [facility] 12-11-2023 15:06-0400 Body height 160 cm Pedro Furlong DO Work Phone: [facility] 12-11-2023 15:06-0400 Body mass index (BMI) [Ratio] 32.28 kg/m2 Pedro Furlong DO Work Phone: [facility] 12-11-2023 15:06-0400 Body weight 82.64 kg Pedro Furlong DO Work Phone: [facility] 12-11-2023 15:06-0400 Diastolic blood pressure 72 mm[Hg] Pedro Furlong DO Work Phone: [facility] 12-11-2023 15:06-0400 Systolic blood pressure 120 mm[Hg] Pedro Furlong DO Work Phone: [facility] 10-10-2023 11:09-0400 Body height 160 cm Pedro Furlong DO Work Phone: [facility] 10-10-2023 11:09-0400 Body mass index (BMI) [Ratio] 32.13 kg/m2 Pedro Furlong DO Work Phone: [facility] 10-10-2023 11:09-0400 Body temperature 97.5 [degF] Pedro Furlong DO Work Phone: [facility] 10-10-2023 11:09-0400 Body weight 82.28 kg Pedro Furlong DO Work Phone: [facility] 10-10-2023 11:09-0400 Diastolic blood pressure 72 mm[Hg] Pedro Furlong DO Work Phone: [facility] 10-10-2023 11:09-0400 Heart rate 59 /min Pedro Furlong DO Work Phone: [facility] 10-10-2023 11:09-0400 SaO2% (BldA) [Mass fraction] 99 % Pedro Furlong DO Work Phone: [facility] 10-10-2023 11:09-0400 Systolic blood pressure 120 mm[Hg] Pedro Furlong DO Work Phone: [facility] 06-19-2023 09:00-0500 Body height 160 cm Janelle Auguste APRN-PULPIT OPERATOR Work Phone: [facility] [facility] 06-19-2023 09:00-0500 Body mass index (BMI) [Ratio] 32.38 kg/m2 Janelle Auguste APRN-PULPIT OPERATOR Work Phone: [facility] 06-19-2023 09:00-0500 Body temperature 97.39 [degF] Janelle Auguste APRN-PULPIT OPERATOR Work Phone: [facility] 06-19-2023 09:00-0500 Body weight 82.92 kg Janelle Auguste APRN-PULPIT OPERATOR Work Phone: [facility] 06-19-2023 09:00-0500 Diastolic blood pressure 60 mm[Hg] Janelle Auguste APRN-PULPIT OPERATOR Work Phone: [employer] 06-19-2023 09:00-0500 Heart rate 89 /min Janelle Auguste APRN-PULPIT OPERATOR Work Phone: [employer] 06-19-2023 09:00-0500 SaO2% (BldA) [Mass fraction] 100 % Janelle Auguste APRN-PULPIT OPERATOR Work Phone: [employer] 06-19-2023 09:00-0500 Systolic blood pressure 112 mm[Hg] Janelle Auguste APRN-PULPIT OPERATOR Work Phone: [employer] 04-25-2023 10:50-0500 Body height 165.1 cm aTryn Dobson Other [employer] Other 04-25-2023 10:50-0500 Body mass index (BMI) [Ratio] 29.45 kg/m2 Taryn Olya Other [employer] Other 04-25-2023 10:50-0500 Body temperature 97.8 [degF] Taryn Olya Other [employer] Other 04-25-2023 10:50-0500 Body weight 80.29 kg Taryn Olya Other [employer] Other 04-25-2023 10:50-0500 Diastolic blood pressure 73 mm[Hg] Taryn Olya Other [employer] Other 04-25-2023 10:50-0500 Respiratory rate 18 /min Taryn Dobson Other [employer] Other 04-25-2023 10:50-0500 SaO2% (BldA) [Mass fraction] 99 % Taryn Olya Other [employer] Other 04-25-2023 10:50-0500 Systolic blood pressure 146 mm[Hg] Taryn Olya Other [employer] Other 10-04-2022 11:30-0400 Body height 165.1 cm Taryn Olya Other [employer] Other 10-04-2022 11:30-0400 Body mass index (BMI) [Ratio] 31.51 kg/m2 Taryn Olya Other [employer] Other 10-04-2022 11:30-0400 Body temperature 97.7 [degF] Taryn Olya Other [employer] Other 10-04-2022 11:30-0400 Body weight 85.91 kg Taryn Olya Other [employer] Other 10-04-2022 11:30-0400 Diastolic blood pressure 73 mm[Hg] Taryn Olya Other [employer] Other 10-04-2022 11:30-0400 Respiratory rate 18 /min Taryn Olya Other [employer] Other 10-04-2022 11:30-0400 SaO2% (BldA) [Mass fraction] 96 % Taryn Olya Other [employer] Other 10-04-2022 11:30-0400 Systolic blood pressure 123 mm[Hg] Taryn Olya Other [employer] Other 08-31-2022 15:25-0400 Body height 159.6 cm Augustin Vital MD Work Phone: [facility] 08-31-2022 15:25-0400 Body temperature 97.11 [degF] Augustin Vital MD Work Phone: [facility] 08-31-2022 15:25-0400 Body weight 85.73 kg Augustin Vital MD Work Phone: [facility] 08-31-2022 15:25-0400 Diastolic blood pressure 73 mm[Hg] Augustin Vital MD Work Phone: [facility] 08-31-2022 15:25-0400 Heart rate 75 /min Augustin Vital MD Work Phone: [facility] 08-31-2022 15:25-0400 Respiratory rate 16 /min Augustin Vital MD Work Phone: [facility] 08-31-2022 15:25-0400 SaO2% (BldA) [Mass fraction] 99 % Augustin Vital MD Work Phone: [facility] 08-31-2022 15:25-0400 Systolic blood pressure 139 mm[Hg] Augustin Vital MD Work Phone: [facility] 06-22-2022 15:54-0500 Body height 159.6 cm Augustin Vital MD Work Phone: [facility] 06-22-2022 15:54-0500 Body temperature 97.7 [degF] Augustin Vital MD Work Phone: [facility] 06-22-2022 15:54-0500 Body weight 84.91 kg Augustin Vital MD Work Phone: [facility] 06-22-2022 15:54-0500 Diastolic blood pressure 82 mm[Hg] Augustin Vital MD Work Phone: [facility] 06-22-2022 15:54-0500 Heart rate 84 /min Augustin Vital MD Work Phone: [facility] 06-22-2022 15:54-0500 Respiratory rate 16 /min Augustin Vital MD Work Phone: [facility] 06-22-2022 15:54-0500 SaO2% (BldA) [Mass fraction] 98 % Augustin Vital MD Work Phone: [facility] 06-22-2022 15:54-0500 Systolic blood pressure 153 mm[Hg] Augustin Vital MD Work Phone: [facility] Encounters Encounter Date Encounter Type Care Provider Facility Start: 03-17-2025 ambulatory KRISHNA JEAN SAMPSON [facility] Start: 03-17-2025 End: 03-17-2025 Bamboo flowsheet Jr. Krishna Rubi Trujillo DO Work Phone: [facility] Start: 03-17-2025 End: 03-17-2025 Bamboo flowsheet Jr. Krishna Rubi Trujillo DO Work Phone: [facility] Start: 03-17-2025 End: 03-17-2025 ambulatory JR.KRISHNA Not Available Start: 03-05-2025 End: 03-05-2025 Refill Pedro G Furlong DO Work Phone: [facility] Start: 02-18-2025 End: 02-18-2025 ambulatory Pedro Furlong DO Work Phone: [facility] Work Phone: Start: 02-18-2025 End: 02-18-2025 Patient encounter procedure Keith Plummer MD -[facility] Work Phone: Start: 02-12-2025 End: 02-12-2025 Telephone encounter Jr. Krishna Rubi Trujillo DO Work Phone: [facility] Comment on above: dental appointment Start: 01-12-2025 End: 01-12-2025 ambulatory Chair 10 Evelyn Work Phone: Hematology/Oncology Comment on above: Iron deficiency anem ia, unspecified iron deficiency anemia type (Primary Dx) Start: 01-05-2025 End: 01-05-2025 ambulatory Chair 4 Evelyn Work Phone: Hematology/Oncology Comment on above: Iron deficiency anem ia, unspecified iron deficiency anemia type (Primary Dx) Start: 12-29-2024 End: 12-29-2024 ambulatory Chair 4 Evelyn Work Phone: Hematology/Oncology Comment on above: Iron deficiency anem ia, unspecified iron deficiency anemia type (Primary Dx) Start: 12-22-2024 End: 12-25-2024 Telephone encounter Suzie Patel PA-C Work Phone: [facility] Comment on above: Future Appointment Start: 12-22-2024 End: 12-22-2024 Office outpatient visit 25 minutes Suzie Patel PA-C Work Phone: Hematology/Oncology Comment on above: Iron deficiency anem ia, unspecified iron deficiency anemia type (Primary Dx) Start: 12-22-2024 End: 12-22-2024 ambulatory PEDRO RODRIGUEZ Facility:[facility] Start: 12-15-2024 End: 12-15-2024 Telephone encounter Muriel Aguiar RN Hematology/Oncology Comment on above: Lab Orders Start: 12-11-2024 End: 12-11-2024 Patient encounter procedure Pedro Rodriguez DO Work Phone: [facility] Comment on above: Medicare annual well ness visit, subsequent (Primary Dx); Screening for depression Start: 12-11-2024 End: 12-11-[address] [facility] Start: 11-05-2024 End: 11-05-2024 Refill Perdo Anitra Ojedalindagillian DO Work Phone: [facility] Start: 10-11-2024 End: 10-12-2024 Refill Pedro nAitra Ojedalindagillian DO Work Phone: [facility] Start: 10-03-2024 End: 10-03-2024 Office outpatient visit 25 minutes Pedro G Furlong DO Work Phone: [facility] Comment on above: Mixed hyperlipidemia (Primary Dx); Acquired hypothyroidism; Obstructive sleep apnea; Pedal edema; Class 1 obesity due to excess calories with serious comorbidity and body mass index (BMI) of 32.0 to 32.9 in adult Start: 10-03-2024 End: 10-03-2024 ambulatory PEDRO Ayoub [facility] Start: 09-18-2024 End: 09-18-2024 Follow-up encounter Suize Patel PA-C Work Phone: Hematology/Oncology Comment on above: Results Start: 09-17-2024 End: 09-17-2024 Telephone encounter [facility] Work Phone: [facility] Comment on above: Lab Orders Start: 09-17-2024 End: 09-17-2024 Office outpatient visit 25 minutes Suzie CONWAY-C Work Phone: Hematology/Oncology Comment on above: Iron deficiency anem ia, unspecified iron deficiency anemia type (Primary Dx) Start: 09-17-2024 End: 09-17-2024 ambulatory PEDRO OJEDAGILLIAN Facility:[facility] Start: 08-14-2024 End: 08-20-2024 Telephone encounter Jenna Rodriguez CMA [facility] Start: 08-09-2024 End: 08-09-2024 Refill Pedro Rodriguez DO Work Phone: [facility] Start: 07-08-2024 End: 07-08-2024 Bamboo flowsheet Muriel A Felter OR NURSE MANAGER-HEATING AND BLENDING SUPERVISOR Work Phone: [facility] Start: 07-08-2024 End: 07-08-2024 Bamboo flowsheet Muriel A Felter OR NURSE MANAGER-HEATING AND BLENDING SUPERVISOR Work Phone: [facility] Start: 07-08-2024 End: 07-08-2024 Office outpatient visit 10 minutes Muriel A Felter OR NURSE MANAGER-HEATING AND BLENDING SUPERVISOR Work Phone: [facility] Comment on above: Seborrheic keratosis (Primary Dx); Inflamed seborrheic keratosis Start: 07-08-2024 End: 07-08-2024 ambulatory MURIEL SERNA Not Available Start: 06-19-2024 End: 06-20-2024 ambulatory Chair 17 Evelyn Work Phone: Hematology/Oncology Comment on above: Iron deficiency anem ia, unspecified iron deficiency anemia type (Primary Dx) Start: 06-13-2024 End: 06-13-2024 ambulatory Chair 17 Evelyn Work Phone: Hematology/Oncology Comment on above: Iron deficiency anem ia, unspecified iron deficiency anemia type (Primary Dx) Start: 06-06-2024 End: 06-06-2024 Telephone encounter Carolyn Osborn RN Hematology/Oncology Comment on above: Patient Question (Or al iron) Start: 06-06-2024 End: 06-06-2024 ambulatory Chair 17 Evelyn Work Phone: Hematology/Oncology Comment on above: Iron deficiency anem ia, unspecified iron deficiency anemia type (Primary Dx) Start: 05-30-2024 End: 05-30-2024 ambulatory Chair 17 Evelyn Work Phone: Hematology/Oncology Comment on above: Iron deficiency anem ia, unspecified iron deficiency anemia type (Primary Dx) Start: 05-26-2024 End: 05-26-2024 Social Work Yuli FULLER Hematology/Oncology Start: 05-22-2024 End: 05-23-2024 ambulatory Chair 17 Evelyn Work Phone: Hematology/Oncology Comment on above: Iron deficiency anem ia, unspecified iron deficiency anemia type (Primary Dx) Start: 05-16-2024 End: 05-20-2024 Telephone encounter Muriel Aguiar RN Hematology/Oncology Comment on above: Appointment Start: 05-15-2024 End: 05-15-2024 Office outpatient visit 25 minutes Suzie Patel PA-C Work Phone: Hematology/Oncology Comment on above: Iron deficiency anem ia, unspecified iron deficiency anemia type (Primary Dx) Start: 05-15-2024 End: 05-15-2024 ambulatory PEDRO RODRIGUEZ Facility:[facility] Start: 04-25-2024 End: 04-25-2024 Refill Pedro Rodriguez DO Work Phone: [facility] Start: 04-08-2024 End: 04-08-2024 Refill Danielle Casarez CMA [facility] Start: 04-01-2024 End: 04-01-2024 Telephone encounter Muriel Aguiar RN Hematology/Oncology Comment on above: Results Start: 03-31-2024 End: 03-31-2024 Office outpatient visit 15 minutes Suzie Patel PA-C Work Phone: Hematology/Oncology Comment on above: Iron deficiency anem ia, unspecified iron deficiency anemia type (Primary Dx) Start: 03-31-2024 End: 03-31-2024 ambulatory PEDRO OJEDAGILLIAN Facility:[facility] Start: 03-19-2024 End: 03-19-2024 Telephone encounter Suzie Patel PA-C Work Phone: Hematology/Oncology Comment on above: Lab Orders Start: 01-28-2024 End: 01-29-2024 Orders Only Pedro Rodriguez DO Work Phone: [facility] Comment on above: Iron deficiency anem ia due to dietary causes (Primary Dx) Start: 01-27-2024 End: 01-28-2024 Refill Pedro Rodriguez DO Work Phone: [facility] Start: 01-17-2024 End: 01-17-2024 ambulatory PEDRO RODRIGUEZ [facility] Start: 01-17-2024 End: 01-17-2024 Office outpatient visit 15 minutes Pedro Rodriguez DO Work Phone: [facility] Comment on above: Iron deficiency anem ia secondary to inadequate dietary iron intake (Primary Dx); Obesity (BMI 30-39.9); Allergic contact dermatitis due to plants, except food Start: 01-17-2024 End: 01-17-2024 ambulatory STAUNTON Anitra [facility] Start: 01-16-2024 End: 01-16-2024 ambulatory [facility] Work Phone: Start: 01-16-2024 End: 01-16-2024 Patient encounter procedure [facility] [place] Work Phone: Start: 12-11-2023 End: 12-11-2023 Patient encounter procedure Pedro Rodriguez DO Work Phone: [facility] Comment on above: Medicare annual well ness visit, subsequent (Primary Dx); Screening for depression Start: 11-26-2023 End: 11-26-2023 ambulatory Pedro Rodriguez DO Work Phone: [facility] Comment on above: Osteopenia, unspecif ied location (Primary Dx); Asymptomatic postmenopausal state Start: 10-10-2023 End: 10-10-2023 [facility] Start: 10-10-2023 End: 10-10-2023 Office outpatient visit 25 minutes Pedro Rodriguez DO Work Phone: [facility] Comment on above: Mixed hyperlipidemia (Primary Dx); Iron deficiency anemia secondary to inadequate dietary iron intake; Impaired fasting glucose; Pedal edema; Chronic diastolic heart failure ([facility]) Start: 08-28-2023 Refill Janelle Rhoades Kalyani OR NURSE MANAGER-PULPIT OPERATOR Work Phone: [facility] Start: 07-06-2023 Bamboo flowsheet Taryn santana PT Work Phone: [facility] Start: 07-06-2023 Bamboo flowsheet Taryn santana PT Work Phone: [facility] Start: 07-06-2023 End: 07-06-2023 ambulatory Taryn Peguero PT Work Phone: [facility] Comment on above: Unilateral primary o steoarthritis, right knee (Primary Dx); Status post right knee replacement Start: 07-04-2023 End: 07-04-2023 Office outpatient visit 25 minutes Krishna Rubi Trujillo DO Work Phone: [facility] Comment on above: Acute pain of right knee (Primary Dx); History of total knee replacement, right Start: 07-02-2023 Refill Jenna Rodriguez [facility] Start: 06-19-2023 End: 06-19-2023 Office outpatient visit 25 minutes Janelle Auguste OR NURSE MANAGER-PULPIT OPERATOR Work Phone: [facility] Comment on above: 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 CMS-HCC) (Primary Dx); Fatigue, unspecified type; Articulation disorder; Poor concentration Start: 06-14-2023 Refill Pedro french DO Work Phone: [facility] Start: 04-25-2023 Office outpatient vi sit 15 minutes Taryn Dobson [facility] [place] Start: 04-25-2023 End: 04-25-2023 ambulatory [facility] Work Phone: Start: 04-25-2023 End: 04-25-2023 Departed Referred LAY OUT CARPENTER-C Taryn Dobson Work Phone: [facility] [place] Work Phone: Start: 10-11-2022 End: 10-12-[address] AUGUSTIN VITAL Facility:[facility] Start: 10-09-2022 Telephone encounter Tabby Falcon RN Hematology/Oncology Comment on above: Orders Start: 10-04-2022 Office outpatient vi sit 25 minutes Taryn Dobson [facility] [place] Start: 10-04-2022 End: 10-04-2022 ambulatory Taryn [employer] [place] [employer] [employer] Other Start: 08-31-2022 End: 08-31-2022 ambulatory Augustin [...] 06-20-2022 End: 08-09-2022 ambulatory Mayank Michael MD Facility:[place] Start: 06-02-2022 End: 06-03-[address] PEDRO [...] Date Procedure Procedure Detail Performing Clinician Start: 12-11-2024 Adult depression scr eening assessment Pedro Furlong DO Work Phone: Start: 10-03-2024 Adult depression scr eening assessment Pedro Furlong DO Work Phone: Start: 07-08-2024 CRYOTHERAPY SKIN LESION Muriel Serna OR NURSE MANAGER-HEATING AND BLENDING SUPERVISOR Work Phone: Start: 04-02-2024 Mammography Danielle Demarco r MANAGER WIND Start: 01-17-2024 Adult depression scr eening assessment Pedro Furlong DO Work Phone: Start: 12-11-2023 Adult depression scr eening assessment Pedro Furlong DO Work Phone: Start: 10-10-2023 Adult depression scr eening assessment Pedro Furlong DO Work Phone: Start: 10-10-2023 Lipid 1996 panel - S lida or Plasma Suzie Patel PA-C Work Phone: Start: 06-19-2023 Adult depression scr eening assessment Janelle Auguste OR NURSE MANAGER-PULPIT OPERATOR Work Phone: Start: 04-25-2023 Piperacillin/tazobactam Taryn Dobson Other Start: 04-13-2023 Adult depression scr eening assessment Pedro Furlong DO Work Phone: Start: 04-03-2023 Mammography Pedro falcon DO Work Phone: Start: 10-13-2020 Colonoscopy Pedro falcon DO Work Phone: Start: 01-20-2020 Mammography Taryn sellers PT Work Phone: Start: 10-06-2013 Colonoscopy Taryn Viveros ns PT Work Phone: Plan of Treatment Date Care Activity Detail Author Start: 10-13-2030 Screening for malign ant neoplasm of colon Colonoscopy [facility] Start: 2029 RSV Vaccine (1 - 1-d ose 75+ series) RSV Vaccine (1 - 1-dose 75+ series) [facility] Start: 10-09-2028 Lipid panel Lipid Screening [facility] Start: 09-18-2027 Diabetes Screening Diabetes Screenin [facility] Start: 05-15-2027 Diabetes Screening Diabetes Screenin [facility] Start: 03-31-2027 Diabetes Screening Diabetes Screenin [facility] Start: 10-09-2026 Diabetes Screening Diabetes Screenin [facility] Start: 12-15-2025 End: 12-15-2025 Patient encounter procedure 12/15/2025 3:00 PM EDT [facility] [address] [place] [address] [facility] Start: 12-11-2025 Adult BMI Screening Adult BMI Screen ing [facility] Start: 12-11-2025 Depression Screening Depression Scre ening [facility] Start: 12-11-2025 Fall Risk Screening Fall Risk Screen ing [facility] Start: 12-11-2025 Medicare Annual Wellness Visit Medicare Annual Wellness Visit [facility] Start: 10-03-2025 Adult BMI Follow Up Plan Adult BMI Follow Up Plan [facility] Start: 10-03-2025 Adult BMI Screening Adult BMI Screen ing [facility] Start: 10-03-2025 Depression Screening Depression Scre ening [facility] Start: 10-03-2025 Fall Risk Screening Fall Risk Screen ing [facility] Start: 10-03-2025 Tobacco Screening Tobacco Screening [facility] Start: 08-31-2025 DIABETES SCREEN DIABETES SCREEN [facility] Start: 07-13-2025 End: 07-13-2025 Patient encounter procedure 07/13/2025 10:05 AM EST Office Visit [facility] [address] [place] [address] Muriel Serna APRN-HEATING AND BLENDING SUPERVISOR [address] [place] [address] [facility] Start: 04-20-2025 End: 04-20-2025 Follow-up encounter Hematology/Oncology Comment on above: [address] lab Start: 04-10-2025 End: 04-10-2025 Patient encounter procedure 04/10/2025 10:30 AM EST Office Visit [facility] [address] [place] [address] Pedro Rodriguez DO [address] [place] [address] [facility] Start: 04-02-2025 Screening for malign ant neoplasm of breast Mammogram [facility] Start: 03-24-2025 End: 06-23-2025 CBC W Auto Differential panel - Blood COMPLETE BLOOD COUNT AND DIFFERENTIAL Lab Routine Iron deficiency anemia, unspecified iron deficiency anemia type Expected: 03/24/2025 (Approximate), Expires: 06/23/2025 [facility] Comment on above: Expected: 03/24/2025 (Approximate), Expires: 06/23/2025 Start: 03-24-2025 End: 06-23-2025 Comprehensive metabolic 2000 panel - Serum or Plasma COMPREHENSIVE METABOLIC PANEL Lab Routine Iron deficiency anemia, unspecified iron deficiency anemia type Expected: 03/24/2025 (Approximate), Expires: 06/23/2025 [facility] Comment on above: Expected: 03/24/2025 (Approximate), Expires: 06/23/2025 Start: 03-24-2025 End: 06-23-2025 Ferritin [Mass/volume] in Serum or Plasma FERRITIN Lab Routine Iron deficiency anemia, unspecified iron deficiency anemia type Expected: 03/24/2025 (Approximate), Expires: 06/23/2025 [facility] Comment on above: Expected: 03/24/2025 (Approximate), Expires: 06/23/2025 Start: 03-24-2025 End: 06-23-2025 Iron and Iron binding capacity panel - Serum or Plasma IRON AND TIBC Lab Routine Iron deficiency anemia, unspecified iron deficiency anemia type Expected: 03/24/2025 (Approximate), Expires: 06/23/2025 [facility] Work Phone: Comment on above: Expected: 03/24/2025 (Approximate), Expires: 06/23/2025 Start: 03-17-2025 End: 03-17-2025 Patient encounter procedure 03/17/2025 8:30 AM EDT Office Visit [facility] [address] [place] [id number] Jr. Krishna Trujillo, DO [address] [place] [address] Acute pain of right knee [facility] Comment on above: Acute pain of right knee Start: 2025 COVID-19 Vaccine ( season) COVID-19 Vaccine ( season) [facility] Start: 2025 Influenza vaccination [facility] Start: 01-16-2025 Adult BMI Screening Adult BMI Screen ing [facility] Start: 01-16-2025 Depression Screening Depression Scre ening [facility] Start: 01-16-2025 Tobacco Screening Tobacco Screening [facility] Start: 01-12-2025 End: 01-12-2025 Patient encounter procedure 01/12/2025 1:00 PM EDT Office Visit [facility] [address] [place] [address] Stepanic, Jr. Krishna C, DO [address] [facility] [address] [place] [address] [facility] Start: 01-12-2025 End: 01-12-2025 ambulatory Hematology/Oncology Comment on above: IV iron / pt leaving for vacation after this appt IV iron / pt leaving for vacation after this appt / If we start early can we keep her in mind. Start: 01-05-2025 End: 01-05-2025 ambulatory 01/05/2025 9:40 AM EDT Infusion Center Hematology/Oncology [address] [address] Evelyn, Chair [address] [place] [address] IV iron / pt leaving for vacation after this appt Hematology/Oncology Comment on above: IV iron / pt leaving for vacation after this appt Start: 12-29-2024 End: 12-29-2024 ambulatory 12/29/2024 9:40 AM EDT Infusion Center Hematology/Oncology [address] [place] [address] Evelyn, Chair [address] [address] IV iron / pt leaving for vacation after this appt Hematology/Oncology Comment on above: IV iron / pt leaving for vacation after this appt Start: 12-22-2024 End: 12-22-2024 Follow-up encounter 12/22/2024 8:30 AM EDT Visit (SP) Office Hematology/Oncology [address] [place] [address] Suzie Patel, PA-C [address] [address] 3 month follow up with labs at [place] Hemat[facility]/Oncology Comment on above: 3 month follow up [facility] at [place] Start: 12-17-2024 End: 03-18-2025 CBC W Auto Differential panel - Blood COMPLETE BLOOD COUNT AND DIFFERENTIAL Lab Routine Iron deficiency anemia, unspecified iron deficiency anemia type Expected: 12/17/2024 (Approximate), Expires: 03/18/2025 [facility] Comment on above: Expected: 12/17/2024 (Approximate), Expires: 03/18/2025 Start: 12-17-2024 End: 03-18-2025 Comprehensive metabolic 2000 panel - Serum or Plasma COMPREHENSIVE METABOLIC PANEL Lab Routine Iron deficiency anemia, unspecified iron deficiency anemia type Expected: 12/17/2024 (Approximate), Expires: 03/18/2025 [facility] Comment on above: Expected: 12/17/2024 (Approximate), Expires: 03/18/2025 Start: 12-17-2024 End: 03-18-2025 Ferritin [Mass/volume] in Serum or Plasma FERRITIN Lab Routine Iron deficiency anemia, unspecified iron deficiency anemia type Expected: 12/17/2024 (Approximate), Expires: 03/18/2025 [facility] Comment on above: Expected: 12/17/2024 (Approximate), Expires: 03/18/2025 Start: 12-17-2024 End: 03-18-2025 Iron and Iron binding capacity panel - Serum or Plasma IRON AND TIBC Lab Routine Iron deficiency anemia, unspecified iron deficiency anemia type Expected: 12/17/2024 (Approximate), Expires: 03/18/2025 [facility] Work Phone: Comment on above: Expected: 12/17/2024 (Approximate), Expires: 03/18/2025 Start: 12-17-2024 End: 12-17-2024 Follow-up encounter 12/17/2024 11:00 AM EDT Visit (SP) Office Hematology/Oncology [address] [place] [address] Suzie Patel, PAFrankC [address] [place] [address] 3 month follow up with labs at [facility] Comment on above: 3 month follow up [facility] Start: 12-11-2024 End: 12-11-2024 Patient encounter procedure 12/11/2024 1:40 PM EDT Office Visit [facility] [address] [place] [address] [facility] Start: 12-10-2024 Adult BMI Screening Adult BMI Screen ing [facility] Start: 12-10-2024 Depression Screening Depression Scre ening [facility] Start: 12-10-2024 Fall Risk Screening Fall Risk Screen ing [facility] Start: 12-10-2024 Medicare Annual Wellness Visit Medicare Annual Wellness Visit [facility] Start: 10-09-2024 Adult BMI Screening Adult BMI Screen ing [facility] Start: 10-09-2024 Depression Screening Depression Scre ening [facility] Start: 10-09-2024 Fall Risk Screening Fall Risk Screen ing [facility] Start: 10-09-2024 Tobacco Screening Tobacco Screening [facility] Start: 10-03-2024 End: 10-03-2024 Patient encounter procedure 10/03/2024 10:30 AM EDT Office Visit [facility] Internal Medicine - Family Medicine [address] [place] [address] Pedro Rodriguez, [address] [place] [address] [facility] Internal Medicine - Family Medicine Start: 09-12-2024 End: 09-12-2024 Follow-up encounter 09/12/2024 11:00 AM EDT Visit (SP) Office Hematology/Oncology [address] [address] Suzie Patel, PAFrankC [address] [address] 3 month follow up lab Hematology/Oncology Comment on above: 3 month follow up la b Start: 09-12-2024 End: 09-12-2024 Patient encounter procedure 09/12/2024 10:45 AM EDT Office Visit [facility] [address] [address] 3 month follow up lab [facility] Comment on above: 3 month follow up la b Start: 09-11-2024 End: 09-11-2024 Follow-up encounter 09/11/2024 11:00 AM EDT Visit (SP) Office Hematology/Oncology [address] [place] [address] Suzie Patel PA-C [address] [place] [address] 3 month follow up with labs Hematology/Oncology Comment on above: 3 month follow up [facility] Start: 09-11-2024 End: 09-11-2024 Patient encounter procedure 09/11/2024 10:45 AM EDT Office Visit [facility] [address] [address] 3 month follow up lab [facility] Comment on above: 3 month follow up la b Start: 08-18-2024 End: 11-17-2024 CBC W Auto Differential panel - Blood COMPLETE BLOOD COUNT AND DIFFERENTIAL Lab Routine Iron deficiency anemia, unspecified iron deficiency anemia type Expected: 08/18/2024 (Approximate), Expires: 11/17/2024 [facility] Comment on above: Expected: 08/18/2024 (Approximate), Expires: 11/17/2024 Start: 08-18-2024 End: 11-17-2024 Comprehensive metabolic 2000 panel - Serum or Plasma COMPREHENSIVE METABOLIC PANEL Lab Routine Iron deficiency anemia, unspecified iron deficiency anemia type Expected: 08/18/2024 (Approximate), Expires: 11/17/2024 [facility] Comment on above: Expected: 08/18/2024 (Approximate), Expires: 11/17/2024 Start: 08-18-2024 End: 11-17-2024 Ferritin [Mass/volume] in Serum or Plasma FERRITIN Lab Routine Iron deficiency anemia, unspecified iron deficiency anemia type Expected: 08/18/2024 (Approximate), Expires: 11/17/2024 [facility] Comment on above: Expected: 08/18/2024 (Approximate), Expires: 11/17/2024 Start: 08-18-2024 End: 11-17-2024 Iron and Iron binding capacity panel - Serum or Plasma IRON AND TIBC Lab Routine Iron deficiency anemia, unspecified iron deficiency anemia type Expected: 08/18/2024 (Approximate), Expires: 11/17/2024 [facility] Work Phone: Comment on above: Expected: 08/18/2024 (Approximate), Expires: 11/17/2024 Start: 07-08-2024 End: 07-08-2024 Patient encounter procedure 07/08/2024 10:05 AM EST Office Visit [facility] [address] [place] [id number] Muriel Serna, OR NURSE MANAGER-HEATING AND BLENDING SUPERVISOR [address] [place] [address] Arrived [facility] Comment on above: Arrived Start: 06-20-2024 End: 06-20-2024 ambulatory 06/20/2024 1:00 PM EST Infusion Center Hematology/Oncology [address] [address] VENOFER 200 MG IV PUSH Hematology/Oncology Comment on above: VENOFER 200 MG IV PU SH Start: 06-19-2024 Adult BMI Screening Adult BMI Screen ing [facility] Start: 06-19-2024 Depression Screening Depression Scre ening [facility] Start: 06-19-2024 Fall Risk Screening Fall Risk Screen ing [facility] Start: 06-19-2024 Tobacco Screening Tobacco Screening [facility] Start: 06-19-2024 End: 06-19-2024 ambulatory 06/19/2024 1:00 PM EST Infusion Center Hematology/Oncology [address] [address] VENOFER 200 MG IV PUSH Hematology/Oncology Comment on above: VENOFER 200 MG IV PU SH Start: 06-13-2024 End: 06-13-2024 ambulatory 06/13/2024 1:00 PM EST Infusion Center Hematology/Oncology [address] [address] VENOFER 200 MG IV PUSH Hematology/Oncology Comment on above: VENOFER 200 MG IV PU SH Start: 06-06-2024 End: 06-06-2024 ambulatory Hematology/Oncology Comment on above: VENOFER 200 MG IV PU SH [facility] Start: 06-04-2024 Advance Directive Discussion Advance Directive Discussion [facility] Start: 06-04-2024 Medicare Advantage Annual Wellness Visit Medicare Advantage Annual Wellness Visit [facility] Start: 05-30-2024 End: 05-30-2024 ambulatory 05/30/2024 10:00 AM EST Infusion Center Hematology/Oncology [address] [place] [address] VENOFER 200 MG IV PUSH Hematology/Oncology Comment on above: VENOFER 200 MG IV PU SH Start: 05-22-2024 End: 05-22-2024 ambulatory 05/22/2024 1:00 PM EST Infusion Center Hematology/Oncology [address] [place] [address] VENOFER 200 MG IV PUSH Hematology/Oncology Comment on above: VENOFER 200 MG IV PU SH Start: 05-16-2024 End: 05-16-2024 Follow-up encounter 05/16/2024 10:00 AM EST Visit (SP) Office Hematology/Oncology [address] [place] [address] Suzie Patel, PA-C [address] [address] follow up with labs per muriel Hematology/Oncology Comment on above: follow up with labs per muriel Start: 05-16-2024 End: 05-16-2024 Patient encounter procedure 05/16/2024 9:30 AM EST Office Visit [facility] [address] [place] [address] lab per NPowell in IM [facility] Comment on above: lab per NPowell in I M Start: 04-17-2024 End: 04-17-2024 Patient encounter procedure 04/17/2024 2:15 PM EST Office Visit [facility] [address] [place] [address] Pedro Rodriguez, DO [address] [place] [address] [facility] Start: 04-14-2024 End: 04-14-2024 Patient encounter procedure 04/14/2024 8:30 AM EST [facility] [address] [place] [address] Pedro Rodriguez DO [address] [place] [address] [facility] Start: 04-13-2024 Adult BMI Follow Up Plan Adult BMI Follow Up Plan [facility] Start: 04-13-2024 Adult BMI Screening Adult BMI Screen ing [facility] Start: 04-13-2024 Depression Screening Depression Scre ening [facility] Start: 04-13-2024 Fall Risk Screening Fall Risk Screen ing [facility] Start: 04-13-2024 Tobacco Screening Tobacco Screening [facility] Start: 04-03-2024 Screening for malign ant neoplasm of breast Mammogram [facility] Start: 03-31-2024 End: 03-31-2024 Follow-up encounter 03/31/2024 2:30 PM EDT Visit (SP) Office Hematology/Oncology [address] [place] [address] [place] [address] Suzie Patel, PA-C [address] [address] est patient follow up Hematology/Oncology Comment on above: est patient follow u p Start: 03-19-2024 End: 06-18-2024 CBC W Auto Differential panel - Blood COMPLETE BLOOD COUNT AND DIFFERENTIAL Lab Routine Iron deficiency anemia, unspecified iron deficiency anemia type Expected: 03/19/2024, Expires: 06/18/2024 [facility] Comment on above: Expected: 03/19/2024 , Expires: 06/18/2024 Start: 03-19-2024 End: 06-18-2024 Comprehensive metabolic 2000 panel - Serum or Plasma COMPREHENSIVE METABOLIC PANEL Lab Routine Iron deficiency anemia, unspecified iron deficiency anemia type Expected: 03/19/2024, Expires: 06/18/2024 [facility] Comment on above: Expected: 03/19/2024 , Expires: 06/18/2024 Start: 03-19-2024 End: 06-18-2024 Ferritin [Mass/volume] in Serum or Plasma FERRITIN Lab Routine Iron deficiency anemia, unspecified iron deficiency anemia type Expected: 03/19/2024, Expires: 06/18/2024 [facility] Comment on above: Expected: 03/19/2024 , Expires: 06/18/2024 Start: 03-19-2024 End: 06-18-2024 Iron and Iron binding capacity panel - Serum or Plasma IRON AND TIBC Lab Routine Iron deficiency anemia, unspecified iron deficiency anemia type Expected: 03/19/2024, Expires: 06/18/2024 [facility] Work Phone: Comment on above: Expected: 03/19/2024 , Expires: 06/18/2024 Start: 02-03-2024 Covid-19 Vaccine ( season) Covid-19 Vaccine ( season) [facility] Start: 02-03-2024 COVID-19 Vaccine ( season) COVID-19 Vaccine ( season) [facility] Start: 02-03-2024 Influenza vaccination [facility] [place] Start: 01-17-2024 End: 01-17-2024 Patient encounter procedure 01/17/2024 1:30 PM EDT Office Visit [facility] - [facility] Medicine [address] [place] [address] Pedro Rodriguez DO [address] [place] [address] [facility] Start: 01-02-2024 End: 01-02-2024 Patient encounter procedure 01/02/2024 8:00 AM EDT Office Visit [facility] [address] [place] [address] Jr. Krishna Trujillo, DO [address] [place] [address] [facility] Start: 12-11-2023 End: 12-11-2023 Patient encounter procedure 12/11/2023 4:00 PM EDT Office Visit [facility] [address] [place] [address] [facility] Start: 11-26-2023 End: 11-25-2024 DXA Skeletal system Views for bone density Dexa scan central skeletal Imaging Routine Osteopenia, unspecified location Asymptomatic postmenopausal state Expected: 11/26/2023, Expires: 11/25/2024 [facility] Work Phone: Comment on above: Expected: 11/26/2023 , Expires: 11/25/2024 Start: 11-26-2023 End: 11-26-2023 Patient encounter procedure 11/26/2023 11:00 AM EDT [facility] [address] [place] [address] Pedro Rodriguez, [address] [facility] [place] [address] [facility] Start: 10-07-2023 Screening for malign ant neoplasm of colon [facility] Start: 09-29-2023 Medicare Annual Wellness Visit Medicare Annual Wellness Visit [facility] Start: 09-23-2023 DTaP,Tdap and Td Vaccines (2 - Td or Tdap) DTaP,Tdap and Td Vaccines (2 - Td or Tdap) [facility] Start: 07-19-2023 COLORECTAL CANCER SCREENING COLORECTAL CANCER SCREENING [facility] Start: 07-19-2023 FECAL OCCULT BLOOD FECAL OCCULT BLOO D [facility] Start: 07-19-2023 Screening for malign ant neoplasm of colon [facility] Start: 07-13-2023 End: 07-13-2023 ambulatory 07/13/2023 9:00 AM EST Treatment [facility] [address] [facility] [address] [place] [address] Taryn Peguero, PT [address] [place] [address] [facility] Start: 07-06-2023 End: 07-06-2023 ambulatory 07/06/2023 9:00 AM EST Treatment [facility] [address] [facility] [address] [place] [address] Taryn Peguero, PT [address] [place] [address] Arrived [facility] Comment on above: Arrived Start: 06-19-2023 End: 06-19-2023 Patient encounter procedure 06/19/2023 9:00 AM EST Office Visit [facility] [address] [facility] [place] [address] Janelle Auguste, OR NURSE MANAGER-PULPIT OPERATOR [address] [place] [address] [facility] Start: 06-04-2023 Advance Directive Discussion Advance Directive Discussion [facility] Start: 04-25-2023 Bacteria identified in Urine by Culture [facility] Start: 2023 COVID-19 Vaccine ( season) COVID-19 Vaccine ( season) [facility] Start: 10-09-2022 End: 12-09-2022 CBC W Auto Differential panel - Blood CBC + DIFF Lab Routine Iron deficiency anemia, unspecified iron deficiency anemia type Expected: 10/09/2022, Expires: 12/09/2022 [facility] Work Phone: Comment on above: Expected: 10/09/2022 , Expires: 12/09/2022 Start: 10-09-2022 End: 12-09-2022 Ferritin [Mass/volume] in Serum or Plasma FERRITIN BLD Lab Routine Iron deficiency anemia, unspecified iron deficiency anemia type Expected: 10/09/2022, Expires: 12/09/2022 [facility] Work Phone: Comment on above: Expected: 10/09/2022 , Expires: 12/09/2022 Start: 10-09-2022 End: 12-09-2022 Iron and Iron binding capacity panel - Serum or Plasma IRON + TIBC Lab Routine Iron deficiency anemia, unspecified iron deficiency anemia type Expected: 10/09/2022, Expires: 12/09/2022 [facility] Work Phone: Comment on above: Expected: 10/09/2022 , Expires: 12/09/2022 Start: 08-31-2022 End: 10-31-2022 Ferritin [Mass/volume] in Serum or Plasma [facility] Work Phone: Comment on above: Expected: 08/31/2022 , Expires: 10/31/2022 Start: 08-31-2022 End: 10-31-2022 Iron and Iron binding capacity panel - Serum or Plasma [facility] Work Phone: Comment on above: Expected: 08/31/2022 , Expires: 10/31/2022 Start: 06-22-2022 End: 08-22-2022 Cobalamin (Vitamin B12) [Mass/volume] in Serum or Plasma [facility] Work Phone: Comment on above: Expected: 06/22/2022 , Expires: 08/22/2022 Start: 06-22-2022 End: 08-22-2022 Ferritin [Mass/volume] in Serum or Plasma [facility] Work Phone: Comment on above: Expected: 06/22/2022 , Expires: 08/22/2022 Start: 06-22-2022 End: 08-22-2022 Iron and Iron binding capacity panel - Serum or Plasma [facility] Work Phone: Comment on above: Expected: 06/22/2022 , Expires: 08/22/2022 Start: 06-04-2022 ADVANCE DIRECTIVE DISCUSSION ADVANCE DIRECTIVE DISCUSSION [facility] Start: 06-04-2022 DEPRESSION ASSESSMENT DEPRESSION ASS ESSMENT [facility] Start: 03-09-2022 COVID-19 VACCINE (5 - Booster for Moderna series) COVID-19 VACCINE (5 - Booster for Moderna series) [facility] Start: 01-19-2021 Screening for malign ant neoplasm of breast [facility] Start: 08-25-2020 COVID-19 VACCINE (2 - Moderna series) COVID-19 VACCINE (2 - Moderna series) [facility] Start: 2019 BONE DENSITY BONE DENSITY [facility] Start: 2019 PNEUMOCOCCAL: 65+ (1 - PCV) PNEUMOCOCCAL: 65+ (1 - PCV) [facility] Start: 10-06-2014 Screening for malign ant neoplasm of colon Colonoscopy [facility] Start: 09-23-2013 Urine microalbumin profile DTaP,Tdap,Td Vaccine (1 - Tdap) [facility] Start: 02-03-2004 SHINGRIX VACCINE (1 of 2) SHINGRIX VACCINE (1 of 2) [facility] Start: 1999 COLOGUARD (FIT-DNA) COLOGUARD (FIT-D NA) [facility] Start: 1999 Colonoscopy COLONOSCOPY [facility] Start: 1999 COLORECTAL CANCER SCREENING COLORECTAL CANCER SCREENING [facility] Start: [address] COLONOGRAPHY [facility] Start: 1999 DIABETES SCREEN DIABETES SCREEN [facility] Start: 1999 FECAL OCCULT BLOOD FECAL OCCULT BLOO D [facility] Start: 1999 LIPID SCREEN LIPID SCREEN [facility] Start: 1999 Screening for malign ant neoplasm of colon [facility] Start: 1999 SIGMOIDOSCOPY SIGMOIDOSCOPY [facility] Start: 1994 Mammography MAMMOGRAM [facility] Start: 1973 Urine microalbumin profile DTAP,TDAP,TD (1 - Tdap) [facility] Start: 02-03-1972 Anxiety Screening Anxiety Screening [facility] Start: 02-03-1972 Depression Screening Depression Scre ening [facility] Start: 02-03-1972 HEPATITIS C SCREENING HEPATITIS C [facility] Start: 02-03-1972 Hepatitis C screening Hepatitis C [facility] Start: 1954 Screening for malign ant neoplasm of colon [facility] End: 06-19-2024 Basic metabolic 2000 panel - Serum or Plasma Basic Metabolic Panel Lab Routine 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[facility]) 1 Occurrences starting 06/19/2023 until 06/19/2024 [facility] Comment on above: 1 Occurrences starti ng 06/19/2023 until 06/19/2024 End: 01-16-2025 CBC panel - Blood by Automated count CBC Lab Routine Iron deficiency anemia secondary to inadequate dietary iron intake 1 Occurrences starting 01/17/2024 until 01/16/2025 [facility]: 1 Occurrences starti ng 01/17/2024 until 01/16/2025 Hemoglobin.gastroint est inal.lower [Presence] in Stool by Immunoassay FECAL OCCULT BLOOD TEST Lab Routine Iron deficiency anemia, unspecified iron deficiency anemia type Ordered: 06/22/2022 [facility] Work Phone: Comment on above: Ordered: 06/22/2022 End: 01-16-2025 Iron and TIBC Iron and TIBC Lab Routine Iron deficiency anemia secondary to inadequate dietary iron intake 1 Occurrences starting 01/17/2024 until 01/16/2025 [employer] Work Phone: Comment on above: 1 Occurrences starti ng 01/17/2024 until 01/16/2025 End: 06-19-2024 Osmolality of Serum or Plasma Osmolality Lab Routine 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[facility]) 1 Occurrences starting 06/19/2023 until 06/19/2024 [facility] on above: 1 Occurrences starti ng 06/19/2023 until 06/19/2024 End: 06-19-2024 Osmolality, urine Osmolality, urine Lab Routine 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[facility]) 1 Occurrences starting 06/19/2023 until 06/19/2024 [email or web address] Work Phone: Comment on above: 1 Occurrences starti ng 06/19/2023 until 06/19/2024 End: 06-19-2024 Sodium, urine, 24 hour Sodium, urine, 24 hour Lab Routine 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[facility]) 1 Occurrences starting 06/19/2023 until 06/19/2024 [facility] Comment on above: 1 Occurrences starti ng 06/19/2023 until 06/19/2024 End: 06-19-2024 Urinalysis Urinalysis (clean catch) Lab Routine 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[facility]) 1 Occurrences starting 06/19/2023 until 06/19/2024 [facility] Comment on above: 1 Occurrences starti ng 06/19/2023 until 06/19/2024 [facility] Immunizations Immunization Date Immunization Notes Care Provider [facility] 03-31-2024 influenza, high dose seasonal, preservative-free Suzie Patel PA-C Work Phone: [facility] 03-31-2024 influenza virus vacc ine, unspecified formulation Pedro Furlong DO Work Phone: [facility] 04-13-2023 Influenza Vaccine, Quadrivalent, Adjuvanted Pedro Furlong DO Work Phone: [facility] 04-13-2023 influenza virus vacc ine, unspecified formulation Pedro Furlong DO Work Phone: [facility] 04-03-2022 Influenza Vaccine, Quadrivalent, Adjuvanted Pedro Furlong DO Work Phone: [facility] 04-03-2022 influenza virus vacc ine, unspecified formulation Pedro Furlong DO Work Phone: [facility] 02-21-2021 influenza, injectabl e, quadrivalent, preservative free Pedro Furlong DO Work Phone: [facility] 02-16-2021 Influenza, High-dose , Quadrivalent Pedro Furlong DO Work Phone: [facility] 07-29-2020 COVID-19, mRNA, LNP- S, PF, 100mcg/0.5mL Dose Pedro Furlong DO Work Phone: [facility] 07-28-2020 COVID-19, mRNA, LNP- S, PF, 100mcg/0.5mL Dose Pedro Furlong DO Work Phone: [facility] 02-23-2020 influenza, injectabl e, quadrivalent, preservative free Pedro Furlong DO Work Phone: [facility] 02-23-2020 pneumococcal conjuga te vaccine, 13 valent Pedro Furlong DO Work Phone: [facility] 02-23-2020 pneumococcal polysaccharide vaccine, 23 valent Pedro Furlong DO Work Phone: [facility] 04-04-2019 pneumococcal polysaccharide vaccine, 23 valent Pedro Furlong DO Work Phone: [facility] 04-04-2019 Seasonal trivalent influenza vaccine, adjuvanted, preservative free Pedro Furlong DO Work Phone: [facility] 04-03-2019 Seasonal trivalent influenza vaccine, adjuvanted, preservative free Pedro Furlong DO Work Phone: [facility] 04-01-2018 influenza, injectabl e, quadrivalent, preservative free Pedro Furlong DO Work Phone: [facility] 03-11-2018 influenza, injectabl e, quadrivalent, preservative free Pedro Furlong DO Work Phone: [facility] 03-03-2018 zoster vaccine recombinant Pedro Furlong DO Work Phone: [facility] 12-21-2017 zoster vaccine recombinant Pedro Furlong DO Work Phone: [facility] 06-22-2017 influenza, seasonal, injectable, preservative free Pedro Furlong DO Work Phone: [facility] 07-25-2015 zoster vaccine, live Pedro Furlong DO Work Phone: [facility] 09-22-2013 tetanus and diphther ia toxoids, adsorbed, preservative free, for adult use (5 Lf of tetanus toxoid and 2 Lf of diphtheria toxoid) Pedro Rodriguez DO Work Phone: [facility] 04-18-2013 influenza, seasonal, injectable Pedro Rodriguez DO Work Phone: [facility] 08-13-2008 haemophilus influenz ae type b conjugate and Hepatitis B vaccine Pedro Rodriguez DO Work Phone: [facility] 11-28-2007 haemophilus influenz ae type b conjugate and Hepatitis B vaccine Pedro Rodriguez DO Work Phone: [facility] Payers Date Payer Category Payer Private Health Insurance [id number] 2022 Self-pay [id number] 2022 Medicare [id number] 2022 Medicare (Managed Care) [id number]. [id number] 1959 Medicare [id number] 1959 Private Health Insurance [id number] 1954 Unknown [id number] 1954 Unknown [id number] 2.16.840.1.087412.3.579.2.593 1954 Unknown [id number] 2.16.840.1.870760.3.579.2.593 1954 Unknown [id number] 2.16.840.1.041217.3.579.2.593 1954 Unknown [id number] 2.16.840.1.442182.3.579.2.593 1954 Unknown [id number] 2.16.840.1.734528.3.579.2.593 1954 Unknown [id number] 2.16.840.1.672493.3.579.2.593 1954 Unknown [id number] 2.16.840.1.432021.3.579.2.593 1954 Unknown [id number] 2.16.840.1.079428.3.579.2.593 1954 Unknown [id number] 2.16.840.1.872760.3.579.2.593 1954 Unknown [id number] 2.16.840.1.555753.3.579.2.593 1954 Unknown [id number] 2.16.840.1.583987.3.579.2.593 1954 Unknown [id number] 2.16.840.1.477881.3.579.2.593 1954 Unknown [id number] 2.16.840.1.339201.3.579.2.593 1954 Unknown [id number] 2.16.840.1.431396.3.579.2.593 1954 Unknown [id number] 2.16.840.1.160448.3.579.2.593 1954 Unknown [id number] 2.16.840.1.432322.3.579.2.593 1954 Unknown [id number] 2.16.840.1.860171.3.579.2.593 1954 Unknown [id number] 2.16.840.1.659855.3.579.2.593 1954 Unknown [id number] 2.16.840.1.634310.3.579.2.593 1954 Unknown [id number] 1955 Unknown [id number] 1955 Unknown [id number] 1955 Unknown [id number] 1955 Unknown [id number] 1954 Unknown [id number] 1955 Unknown [id number] 1955 Unknown [id number] 1955 Unknown [id number] Unknown [place]/ [id number] Unknown [id number] Unknown [id number] Social History Date Type Detail Facility Start: 06-21-2022 End: 12-14-2022 Tobacco smoking status NHIS Never smoked tobacco [facility] Start: 06-21-2022 End: 12-14-2022 Tobacco use and exposure Smokeless tobacco non-user [facility] Start: 06-21-2022 End: 07-08-2024 Alcohol intake Current drinker of alcohol (finding) [facility] Start: 06-21-2022 Alcohol Comment occasional [facility] Start: 1955 Sex Assigned At Not on file C [place] Start: 07-04-2023 End: 07-08-2024 Sex Assigned At [facility] Start: 1955 Sex Assigned At Female F [facility] Start: 07-04-2023 End: 07-08-2024 History of Social function [facility] Start: 12-12-2022 Education 17 [facility] Start: 12-12-2022 Alcohol Comment Alcohol: 1 or 2 drinks on typical day/monthly or less. Caffeine 1 can of soda [facility] Start: 08-16-2022 Gender identity Identifies as female gender (finding) [facility] Start: 04-30-2013 End: 08-16-2022 Adult Depression Screening Assessment 0 [facility] Has the [employer], gas, oil, or water [employer] threatened to shut off services in your home in past 12Mo No [facility] Are you now , , , , never or living with a partner? [facility] How often to you hav e a drink containing alcohol? 2-3 time sa week [facility] How many standard drinks containing alcohol do you have on a typical day? 1 or 2 [facility] How often do you hav e 6 or more drinks on 1 occasion? Never [facility] Do you feel stress - tense, restless, nervous, or anxious, or unable to sleep at night because your mind is troubled all the time - these days [OSQ] Not at all [facility] Start: 08-31-2020 Alcohol Comment Occasional [facility] Start: 01-07-2015 Sex Female (finding) [facility] NEGATED: Highlighted rowStart: MARJORIEF History of tobacco use Passive smoker [facility] Clinical Notes 06-21-2022 to 02-12-2025 Telephone Encounter - Laila Gonsalez - 02/12/2025 9:08 AM EDTTelephone Encounter - Laila Gonsalez - 02/12/2025 9:08 AM EDTTelephone Encounter - Kelly Schwartz - 12/24/2024 2:47 PM EDT Note Date & Type Note Facility 02-12-2025 Telephone encounter Note R TKA 02/09/23, PAMELA 01/07/24 Dental appt's 02/17/25 & 02/24/[address] [facility] 02-12-2025 Miscellaneous Notes R TKA 02/09/23, PAMELA 01/07/24 Dental appt's 02/17/25 & 02/24/[address] [facility] documented in this encounter [facility] 12-24-2024 Telephone encounter Note Called Piedad Waller spoke with Marce. Patient is scheduled to see Dr Plummer on 02/18 @ 1:45. Kelly Lucas Pss [facility] 12-24-2024 Miscellaneous Notes Called Piedad Waller spoke with Marce. Patient is scheduled to see Dr Plummer on 02/18 @ 1:45. Kelly Martin Records faxed to Evelyn Waller. Regina: Information ready for you. Kelly Lucas Pss Images from the original note were not included. Regina, Please fax records Hawk, Please follow up on this appt. documented in this encounter [facility] 12-22-2024 Telephone encounter Note Records faxed to Evelyn Waller. [facility] 12-22-2024 Telephone encounter Note Regina: Information ready for you. Kelly Martin [facility] 12-22-2024 Telephone encounter Note Images from the original note were not included. Regina, Please fax records [place], Please follow up on this appt. [facility] 12-22-2024 History of Presen t illness Narrative PATIENT NAME: Shauna Christensen DATE: 12/22/2024 PRIMARY CARE PHYSICIAN: Pedro Rodriguez DO Portions of this encounter note have been copied from my note from 09/17/2024 and has been updated where appropriate, and reflect my current medical decision making from today. CC: This is a 69 year old female initially referred for evaluation of iron deficiency anemia, seen for scheduled follow-up. INTERIM HISTORY: Shauna returns for 3 month follow up.She last received Venofer 200 mg IV x 5 doses May 2024-June 2024. Labs from OSH dated 12/17/2024, showed mild anemia with a hemoglobin 11.6, MCV 86.1, ferritin 17, serum iron low at 32, normal TIBC 368, and iron saturation of 8.7%. These are a drop since her labs here in September 2024. She denies any signs of bleeding such as black tarry stools or bright red blood in her stools. Her last colonoscopy was in October 2020 and I do not have record of an EGD. Today she reports feeling well. Denies any significant fatigue.No PICA, shortness of breath, dizziness, or leg cramping. MEDICATIONS: Current Outpatient Medications Medication Sig atorvastatin (LIPITOR) 10 mg tablet Biotin 10,000 mcg cap 1 capsule. calcium citrate (CALCITRATE) 200 mg (950 mg) tab Cholecalciferol, Vitamin D3, 250 mcg (10,000 unit) cap Take by mouth. Takes 14,000units daily SYNTHROID 50 mcg tablet metFORMIN (GLUCOPHAGE) 500 mg tablet MV with Jwc-Iujejrij-Umndhe (CENTRUM SILVER) 0.4 mg-300 mcg- 250 mcg [...] REVIEW OF SYSTEMS: CONSTITUTION: Negative for pain, weight loss, or appetite loss. EENT: Negative [...] NEUROLOGICAL: Negative for numbness/tingling, dizziness, gait disturbance, headache disturbance, tremor, hemiparesis/sensory loss, or change in mental status. MUSCULOSKELETAL: Negative for joint pain, joint swelling, or proximal muscle weakness. SKIN: Negative for hair loss, bruising, nail changes, rash, itching, pallor, or jaundice. ENDO/URO: Negative for hot flashes, cold or heat intolerance, urinary frequency, urinary hesitancy, menorrhagia, or hematuria. PSYCH: Negative for anxiety, depression, or other. PHYSICAL EXAM: BP 144/80 Pulse 66 Temp 36.4 C (97.6 F) (Temporal) Resp 16 Wt 84.8 kg (186 lb 15.2 oz) SpO2 98% BMI 33.29 kg/m General: Alert and oriented, no distress, pleasant and cooperative. Heart: Regular, normal S1 and S2, no murmurs, rubs, or gallops Lungs: Clear to auscultation bilaterally Extremities: Feet/ankles without edema, right TKA scar noted and edema to entire right leg--not new per patient LABS: Labs from OSH dated 12/17/2024 reviewed and are scanned in EPIC ASSESSMENT/PLAN: 1. Iron deficiency anemia - ICD9: [...] stools for occult blood were negative. She had remained on oral iron daily since that time. Iron levels in May 2024 were borderline low and she received venofer 200 mg IVP x 5 doses with improvement in symptoms. She now shows recurrent iron deficiency anemia with ferritin of 17, hemoglobin 11.6, and iron saturation 8%. She has not had a colonoscopy since 2020. I would recommend Venofer 300 mg IV x 3 doses and a referral to GI for appropriate GI evaluation. I will see her again in 3 months with labs a week before. 2. Acquired hypothyroidism - ICD9: 244.9, ICD10: E03.9 Stable on current medications, continue per PCP. 3. Arthritis - ICD9: 716.90, ICD10: M19.90 Chronic bilateral knee pain secondary to osteoarthritis. Currently the patient is scheduled undergo a right TKA February 2023. Suzie Patel PA-C I spent a total of 30 minutes on the date of the service which included preparing to see the patient, [id number] patient care, completing clinical documentation, performing a medically appropriate examination, counseling and educating the patient/family/caregiver, ordering medications, tests, or procedures, independently interpreting results (not separately reported), communicating results to the patient/family/caregiver, and care coordination (not separately reported). documented in this encounter [facility] 12-22-2024 Note HNO ID: [id number] Author: SUZIE PATEL PA-C Service: ? Author Type: Physician Ash Worker Type: Progress Notes Filed: 12/22/2024 08:48 Note Text: PATIENT NAME: Shauna Christensen DATE: 12/22/2024 PRIMARY CARE PHYSICIAN: Pedro Rodriguez DO Portions of this encounter note have been copied from my note from 09/17/2024 and has been updated where appropriate, and reflect my current medical decision making from today. CC: This is a 69 year old female initially referred for evaluation of iron deficiency anemia, seen for scheduled follow-up. INTERIM HISTORY: Shauna returns for 3 month follow up.She last received Venofer 200 mg IV x 5 doses May 2024-June 2024. Labs from OSH dated 12/17/2024, showed mild anemia with a hemoglobin 11.6, MCV 86.1, ferritin 17, serum iron low at 32, normal TIBC 368, and iron saturation of 8.7%. These are a drop since her labs here in September 2024. She denies any signs of bleeding such as black tarry stools or bright red blood in her stools. Her last colonoscopy was in October 2020 and I do not have record of an EGD. Today she reports feeling well. Denies any significant fatigue.No PICA, shortness of breath, dizziness, or leg cramping. MEDICATIONS: Current Outpatient Medications Medication Sig atorvastatin (LIPITOR) 10 mg tablet Biotin 10,000 mcg cap 1 capsule. calcium citrate (CALCITRATE) 200 mg (950 mg) tab Cholecalciferol, Vitamin D3, 250 mcg (10,000 unit) cap Take by mouth. Takes 14,000units daily SYNTHROID 50 mcg tablet metFORMIN (GLUCOPHAGE) 500 mg tablet MV with Tso-Fkmaiunx-Zindgj (CENTRUM SILVER) 0.4 mg-300 mcg- 250 mcg [...] REVIEW OF SYSTEMS: CONSTITUTION: Negative for pain, weight loss, or appetite loss. EENT: Negative [...] NEUROLOGICAL: Negative for numbness/tingling, dizziness, gait disturbance, headache disturbance, tremor, hemiparesis/sensory loss, or change in mental status. MUSCULOSKELETAL: Negative for joint pain, joint swelling, or proximal muscle weakness. SKIN: Negative for hair loss, bruising, nail changes, rash, itching, pallor, or jaundice. ENDO/URO: Negative for hot flashes, cold or heat intolerance, urinary frequency, urinary hesitancy, menorrhagia, or hematuria. PSYCH: Negative for anxiety, depression, or other. PHYSICAL EXAM: BP 144/80 Pulse 66 Temp 36.4 ?C (97.6 ?F) (Temporal) Resp 16 Wt 84.8 kg (186 lb 15.2 oz) SpO2 98% BMI 33.29 kg/m? General: Alert and oriented, no distress, pleasant and cooperative. 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 Iron deficiency anemia - ICD9: [...] abnormalities were seen. Her initial course of o (more content not included)... [facility] 12-15-2024 Telephone encounter Note Labs faxed to [facility] to complete Sunday/Sunday this week for MM appt 12/22/24. Regina: Please watch for results Muriel Aguiar RN [facility] 12-15-2024 Miscellaneous Notes Labs faxed to [facility] to complete Sunday/Sunday this week for MM appt 12/22/24. Regina: Please watch for results Muriel Aguiar RN documented in this encounter [facility] 12-11-2024 History of Presen t illness Narrative Subjective SUBJECTIVE: Patient ID: Shauna Christensen is a 69 y.o. female who presents for a Medicare Annual Wellness exam. HPI The following portions of the patient's history were reviewed and updated as appropriate: allergies, current medications, past family history, past medical history, past social history, past surgical history and problem list. AWV FLOWSHEET : Lifestyle Assessment Do you smoke or use smokeless tobacco?: No If you smoke or use smokeless tobacco, are you ready to quit?: NA Are you exposed to secondhand smoke?: No On average, how many drinks of alcohol do you consume in a week?: 2 - 5 Do you exercise for 30 or more minutes on average at least 3 days a week?: Often Do you have any tooth, denture, or oral problems?: No Do you snore or has anyone told you that you snore?: No Do you try to eat a balanced diet?: Yes Do you experience leakage of urine, also known as urinary incontinence?: (!) Often Do you have difficulty bathing?: No Do you have difficulty dressing?: No Do you have difficulty grooming?: No Do you have difficulty eating?: No Do you have difficulty getting out of a chair?: No Do you have difficulty walking?: No Do you have difficulty using the toilet?: No Do you have difficulty doing laundry?: No Do you have difficulty with housekeeping?: No Do you have difficulty preparing a meal?: No Do you have difficulty shopping?: No Do you have difficulty using transportation?: No Do you have difficulty paying bills?: No Do you have difficulty managing finances?: No Fall Risk Fall Risk Assessment Completed?: Yes Have you fallen in the past year?: No Are you worried about falling?: No Do you feel unsteady when standing or walking?: No Risk Stratification: Low Risk Depression Screening Little interest or pleasure in doing things: Not at all Feeling down, depressed, or hopeless: Not at all Trouble falling or staying asleep, or sleeping too much: Not at all Feeling tired or having little energy: Not at all Poor appetite or overeating: Not at all Feeling bad about yourself - or that you are a failure or have let yourself or your family down: Not at all Trouble concentrating on things, such as reading the newspaper or watching television: Not at all Moving or speaking so slowly that other people could have noticed. Or the opposite - being so fidgety or restless that you have been moving around a lot more than usual: Not at all Thoughts that you would be better off , or of hurting yourself in some way: Not at all PEG Scale What number best describes your pain on average in the past week?: 2 Safety Assessment Do you have throw rugs on the floor?: No Do you feel safe at your home?: Yes Do you feel unsteady when walking?: No Are you having difficulty with driving?: No Do you have trouble seeing?: No Do you use a bath bar/seat?: (!) Yes Do you use a raised toilet seat?: (!) Yes Do you use a cane?: No Do you use a walker?: No Do you use a wheelchair?: No Hearing Assessment Do you strain or struggle to hear/understand conversations?: No Do you have trouble hearing the television or radio when others do not?: No Does your family ever voice concerns about your hearing?: No Do you wear hearing aid/s?: No Personal Health During the past 4 weeks, how would you rate your overall health?: Very Good Do you understand how to take all of your medications?: Yes How confident are you that you can control and manage most of your health problems?: Very confident In the past 12 months, how many times have you been hospitalized?: None End of Life Planning Do you have a living will?: Yes Do you have a durable power of senior clerk?: Yes Cognitive Screening Do you have trouble remembering or recalling facts or events?: No Do family members or caregivers report that you have difficulty remembering things?: No 6-Cit: Normal REVIEW OF SYSTEMS: Review of Systems Objective PHYSICAL EXAMINATION: Vitals: 12/11/24 1335 BP: 126/82 Weight: 85.1 kg (187 lb 11.2 oz) Height: 157.5 cm (5' 2 ) Physical Exam Assessment/Plan ASSESSMENT/PLAN Encounter Diagnoses Name Primary? Medicare annual wellness visit, subsequent Yes Screening for depression Health maintenance discussed. Depression screen was negative. At least 3 minute spent administering and discussing. Cognitive evaluation did not reveal any impairment. She has advanced directives in place. Return in about 1 year (around 12/11/2025). documented in this encounter [employer] 11-18-2024 Evaluation note Authored February 18, 2025 1:48pm 70-year-old female referred to the GI clinic for evaluation of iron deficiency anemia. Patient required iron infusions 3 times over the last few months. - Will arrange for EGD/colonoscopy - Will check CBC iron profile and ferritin [facility] Work Phone: 1(239) 897-307205-02-2025 History of Present illness Narrative* Pedro Rodriguez, DO - 10/03/2024 10:30 AM EDT Subjective Patient ID: Shauna Christensen is a 69 y.o. female. Dior presents today for a CV recheck. She had the life line screening done and had all of her labs checked. Even her thyroid test was done. They were all essentially at goal. She had an EKG, AAA screen, PAD screen and carotid arteries screen. She is taking all of her medications. She does not have any side effects. The following portions of the patient's history were reviewed and updated as appropriate: allergies, current medications, past family history, past medical history, past social history, past surgicalhistory, problem list, and medication reconciliation was completed including current medication andpost discharge medication. Review of Systems Objective Physical Exam Constitutional: General: She is not in acute distress. Appearance: She is obese. She is not ill-appearing. Cardiovascular: Rate and Rhythm: Normal rate and regular rhythm. Pulses: Normal pulses. Heart sounds: Normal heart sounds. Pulmonary: Effort: Pulmonary effort is normal. No respiratory distress. Breath sounds: Normal breath sounds. No wheezing, rhonchi or rales. Musculoskeletal: Right lower leg: Edema present. Left lower leg: Edema present. Assessment/Plan Dior was seen today for hyperlipidemia and hypertension. Diagnoses and all orders for this visit: Mixed hyperlipidemia Her triglycerides were high but the other lipids were at goal. Acquired hypothyroidism Thyroid tests at goal. Obstructive sleep apnea She does not use a CPAP. Risks of sudden , MT and stroke discussed. She does not want to pursue treatment. Pedal edema She has some edema. Did suggest low-dose diuretic such as hydrochlorothiazide but she declined. Does have varicose veins. She does usually wear compression hose. I encouraged regular use of compression hose. Class 1 obesity due to excess calories with serious comorbidity and body mass index (BMI) of 32.0 to 32.9 in adult She is obese. She would benefit from weight loss. It is contributing to high cholesterol. Patient noted to have elevated BMI and the following intervention(s) were applied: encouragement toexercise and prescribed diet education. [facility] Tele[facility] encounter Note* Telephone Encounter - Muriel Aguiar RN - 09/18/2024 8:41 AM EDT VM left for pt with MM message below. Encouraged to call with any questions, needs or concerns. Follow up appointment date and time provided. Muriel Aguiar RN [facility]04-17-2025 Miscellaneous Notes* Telephone Encounter - Muriel Aguiar RN - 09/18/2024 8:41 AM EDT VM left for pt with MM message below. Encouraged to call with any questions, needs or concerns. Follow up appointment date and time provided. Muriel Aguiar RN [facility] Telephone encounter Note * Telephone Encounter - Greer Erazo - 09/17/2024 11:13 AM EDT Patient requested her labs in December be done at [facility] prior to follow up. Gave patient orders today. Greer Erazo [facility]04-16-2025 Miscellaneous Notes* Telephone Encounter - Greer Erazo - 09/17/2024 11:13 AM EDT Patient requested her labs in December be done at [facility] prior to follow up. Gave patient orders today. Greer Erazo [facility] History of Present illness Narrative* Suzie Patel PA-C - 09/17/2024 10:30 AM EDT PATIENT NAME: Shauna Christensen DATE: 09/17/2024 PRIMARY CARE PHYSICIAN: Pedro Rodriguez DO Portions of this encounter note have been copied from my note from 05/14/2024 and has been updated where appropriate, and reflect my current medical decision making from today. CC: This is a 69 year old female initially referred for evaluation of iron deficiency anemia, seen for scheduled follow-up. INTERIM HISTORY: Shauna returns for follow up. Last received Venofer 200 mg IV x 5 doses from 05/22-06/19/24. ]She felt better after and had good energy. She denies any bleeding or shortness of breath. Her bowels are moving normally. She has not had a colonoscopy since October 2020. MEDICATIONS: Current Outpatient Medications Medication Sig aspirin [...] metFORMIN (GLUCOPHAGE) 500 mg tablet MV with Pte-Xlimjhdx-Qqsgvo (CENTRUM SILVER) 0.4 mg-300 mcg- 250 mcg [...] REVIEW OF SYSTEMS: CONSTITUTION: Negative for pain, weight loss, or appetite loss. EENT: Negative [...] NEUROLOGICAL: Negative for numbness/tingling, dizziness, gait disturbance, headache disturbance, tremor, hemiparesis/sensory loss, or change in mental status. MUSCULOSKELETAL: Negative for joint pain, joint swelling, or proximal muscle weakness. SKIN: Negative for hair loss, bruising, nail changes, rash, itching, pallor, or jaundice. ENDO/URO: Negative for hot flashes, cold or heat intolerance, urinary frequency, urinary hesitancy,menorrhagia, or hematuria. PSYCH: Negative for anxiety, depression, or other. PHYSICAL EXAM: BP 138/79 Pulse 63 Temp 36.3 C (97.3 F) (Temporal) Resp 16 Ht 159.6 cm (5' 2.84 ) Wt 85.6 kg (188 lb 11.4 oz) SpO2 100% BMI 33.60 kg/m General: Alert and oriented, no distress, pleasant and cooperative. Heart: Regular, normal S1 and S2, no murmurs, rubs, or gallops Lungs: Clear to auscultation bilaterally Extremities: Feet/ankles without edema, posterior tibial pulses full and symmetrical LABS: Hemoglobin (g/dL) Date Value 09/17/2024 13.5 Hematocrit (%) Date Value 09/17/2024 41.1 WBC (k/uL) Date Value 09/17/2024 5.97 Platelet Count (k/uL) Date Value 09/17/2024 281 ASSESSMENT/PLAN: 1. Iron deficiency anemia - [...] June 2022 stools for occult blood were negative.She has remained on oral iron daily since that time. Iron levels in May were borderline low and she received venofer 200 mg IVP x 5 doses with improvement in symptoms. Hemoglobin remains stable today. Iron levels pending. If low again, will offer additional iron and She will need need repeat co lonoscopy and EGD. If normal, will see her again in 3 months with labs a week before. 2. Acquired hypothyroidism - ICD9: 244.9, ICD10: E03.9 Stable on current medications, continue per PCP. 3. Arthritis - ICD9: 716.90, ICD10: M19.90 Chronic bilateral knee pain secondary to osteoarthritis. Currently the patient is scheduled undergoa right TKA February 2023. Suzie Patel PA-C I spent a total of 30 minutes on the date of the service which included preparing to see the patient, [id number] patient care, completing clinical documentation, performing a medically appropriate examination, counseling and educating the patient/family/caregiver, ordering medications, tests, or p rocedures, independently interpreting results (not separately reported), communicating results to the patient/family/caregiver, and care coordination (not separately reported). [facility] NoteHNO ID: [id number] Author: SUZIE PATEL PA-C Service: ? Author Type: Physician Ash Worker Type: Progress Notes Filed: 09/17/2024 11:32 Note Text: PATIENT NAME: Shauna Christensen DATE: 09/17/2024 PRIMARY CARE PHYSICIAN: Pedro Rodriguez DO Portions of this encounter note have been copied from my note from 05/14/2024 and has been updated where appropriate, and reflect my current medical decision making from today. CC: This is a 69 year old female initially referred for evaluation of iron deficiency anemia, seen for scheduled follow-up. INTERIM HISTORY: Shauna returns for follow up. Last received Venofer 200 mg IV x 5 doses from 05/22-06/19/24. ]She felt better after and had good energy. She denies any bleeding or shortness of breath. Her bowels are moving normally. She has not had a colonoscopy since October 2020. MEDICATIONS: Current Outpatient Medications Medication Sig aspirin [...] metFORMIN (GLUCOPHAGE) 500 mg tablet MV with Kma-Laxantbs-Xpcspd (CENTRUM SILVER) 0.4 mg-300 mcg- 250 mcg [...] REVIEW OF SYSTEMS: CONSTITUTION: Negative for pain, weight loss, or appetite loss. EENT: Negative [...] NEUROLOGICAL: Negative for numbness/tingling, dizziness, gait disturbance, headache disturbance, tremor, hemiparesis/sensory loss, or change in mental status. MUSCULOSKELETAL: Negative for joint pain, joint swelling, or proximal muscle weakness. SKIN: Negative for hair loss, bruising, nail changes, rash, itching, pallor, or jaundice. ENDO/URO: Negative for hot flashes, cold or heat intolerance, urinary frequency, urinary hesitancy, menorrhagia, or hematuria. PSYCH: Negative for anxiety, depression, or other. PHYSICAL EXAM: BP 138/79 Pulse 63 Temp 36.3 ?C (97.3 ?F) (Temporal) Resp 16 Ht 159.6 cm (5' 2.84 ) Wt 85.6 kg (188 lb 11.4 oz) SpO2 100% BMI 33.60 kg/m? General: Alert and oriented, no distress, pleasant and cooperative. Heart: Regular, normal S1 and S2, no murmurs, rubs, or gallops Lungs: Clear to auscultation bilaterally Extremities: Feet/ankles without edema, posterior tibial pulses full and symmetrical LABS: Hemoglobin (g/dL) Date Value 09/17/2024 13.5 Hematocrit (%) Date Value 09/17/2024 41.1 WBC (k/uL) Date Value 09/17/2024 5.97 Platelet Count (k/uL) Date Value 09/17/2024 281 ASSESSMENT/PLAN: 1. Iron deficiency anemia - [...] course of oral iron was stopped after severa (more content not included)...[facility]03-13-2025 Miscellaneous Notes* Telephone Encounter - Jenna Rodriguez CMA - 08/14/2024 11:55 AM EDT Lm to Klaus for Cv in October [facility]-13[facility]25 Telephone encounter Note* Telephone Encounter - Jenna Rodriguez CMA - 08/14/2024 11:55 AM EDT Lm to Cb for Cv in October [facility]03-08-2025 Miscellaneous Notes* Telephone Encounter - Pedor Rodriguez DO - 08/09/2024 5:16 AM EST Rx sent in.Due for CV recheck in October documented in this encounterTri[facility]03-08-2025 Telephone encounter Note* Telephone Encounter - Pedro Rodriguez DO - 08/09/2024 5:16 AM EST Rx sent in.Due for CV recheck in October [facility]02-04-2025 History of Present illness Narrative* Muriel Serna, [facility] - 07/08/2024 10:05 AM EST Lesions: Location: right chest Duration: 1-2 months Quality: itchy Modifying factors: aggravated by picking Associated symptoms: non-healing, rough Treatments: none Lesion # 2: Location: left breast Duration: a long time Quality: denies pain, denies itch Modifying factors: rubs on clothing Associated symptoms: non-healing Treatments: none Established patient All pertinent medical history, medications, and allergies were reviewed. General Exam: alert, oriented to person, place, and time, normal affect, well appearing Unaccompanied A focused exam completed based on patient reported problems, see below: 1. Seborrheic keratosis Right Breast Stuck on verrucous, variably pigmented papules and plaques. Patient was counseled regarding these benign growths. Removal is normally not necessary, but they may be removed if they are symptomatic or for cosmetic reasons. 2. Inflamed seborrheic keratosis (2) Left Inframammary Fold (2) Inflamed seborrheic keratoses: pink and brown stuck on verrucous scaly papule with surrounding erythema and bloody crust. The patient was informed that symptomatic seborrheic keratoses are benign growths that become inflamed, itchy, tender, traumatized, caught on clothing, or bleed. Symptomatic lesions can be treated with cryotherapy or curretage. Thicker lesions treated with cryotherapy may require more than one treatment. The patient was instructed to notify the office if abnormal redness or tenderness develops atthe treatment site. Cryotherapy today, see procedure note. Diagnosis: Inflamed seborrheic keratosis Indication: Inflamed Consent: Verbal consent was obtained and risks were discussed, including, but not limited to risks of scarring, darker or defect cutter pigmentary changes, recurrence, incomplete removal and infection. Method: Liquid nitrogen was used to treat the lesion(s) with two 5-10 second freeze-thaw cycles Number of lesions treated: 2 Post-procedure instructions: Instructions were given orally and in writing. The office will be contacted if the lesion fails to resolve despite treatment, or if a side effect develops such as abnormal crusting, scabbing, redness or tenderness Cryotherapy, skin lesion - Left Inframammary Fold (2) Next Visit: rec pt schedule FBSE documented in [facility] encounterSaint [facility] [id number] Telephone encounter Note* Telephone Encounter - Carolyn Osborn RN - 06/06/2024 4:19 PM EST Shauna contacted via phone and made aware to stop oral iron. Pt voiced an understanding. Carolyn Osborn RN [facility]01-03-2025 Miscellaneous Notes* Telephone Encounter - Carolyn Osborn RN - 06/06/2024 4:19 PM EST Shauna contacted via phone and made aware to stop oral iron. Pt voiced an understanding. Carolyn Osborn RN * Telephone Encounter - Mary Kate Sawyer APRN.CNP - 06/06/2024 2:08 PM EST Yes she can stop the oral while getting IV. Thanks. * Telephone Encounter - Carolyn Osborn RN - 06/06/2024 1:44 PM EST Shauna is currently receiving 5 doses of IV venofer, had her 3rd dose today. She continues to take her oral iron at home as well but questions if she needs to. She is constipated and prefers to stop the oral if possible. Please advise. Carolyn Osborn RN [facility]01[facility] Telephone encounter Note * Telephone Encounter - Mary Kate Sawyer APRN.CNP - 06/06/2024 2:08 PM EST Yes she can stop the oral while getting IV. Thanks. [facility] Work Phone: [phone] Telephone encounter Note* Telephone Encounter - Carolyn Osborn RN - 06/06/2024 1:44 PM EST Shauna is currently receiving 5 doses of IV venofer, had her 3rd dose today. She continues to take her oral iron at home as well but questions if she needs to. She is constipated and prefers to stop the oral if possible. Please advise. Carolyn Osborn RN [facility]12-23-2024 NoteHNO ID: [id number] Author: YULI MALIK LSW Service: ? Author Type: Splunk Developer Type: Progress Notes Filed: 05/26/2024 08:59 Note Text: Patient's name appears on the [facility] First Time Treatment Report for a non-oncology treatment. No psychosocial assessment is indicated. RADHA Leung Goals of Care Adavance Directives are not on file.[facility]12-23-2024 History of Present illness Narrative* Yuli Malik LSW - 05/26/2024 8:58 AM EST Patient's name appears on the [facility] First Time Treatment Report for a non- oncology treatment. No psychosocial assessment is indicated. RADHA Leung Goals of Care Adavance Directives are not on file. documented in [facility] encounterProv[facility]12-17-2024 Telephone encounter Note * Telephone Encounter - Greer Erazo - 05/20/2024 3:43 PM EST Patient has been scheduled for Venofer x5 and follow up w/ Suzie in September 2024. Thanks! Greer Erazo [facility]12-17-2024 Miscellaneous Notes* Telephone Encounter - Greer Erazo - 05/20/2024 3:43 PM EST Patient has been scheduled for Venofer x5 and follow up w/ Suzie in September 2024. Thanks! Greerangela Erazo * Telephone Encounter - Suzie Patel PA-C - 05/20/2024 10:54 AM EST 3 months after her last venofer infusion Suzie Patel PA-C * Telephone Encounter - Greer Erazo - 05/16/2024 12:49 PM EST I will call patient with results and appointments will be made from there Suzie: When would you like patient to follow up next? Greer Erazo * Telephone Encounter - Muriel Aguiar RN - 05/16/2024 12:19 PM EST Please call and advise that her transferrin saturation remains low and she likely would benefit from iv iron if she would like ----- Message ----- From: Lab, Background User Sent: 05/15/2024 10:38 AM EST To: Suzie Patel PA-C Pt aware and would like to proceed with IV Iron, d/t fatigue. Pt will await call to schedule. Shedenies any additional questions, needs or concerns at this time. MM/Pharm: please order Lizz/Fani: please call to schedule Muriel Aguiar RN documented [facility] encounterProv[facility]12-17-2024 Telephone encounter Note * Telephone Encounter - Suzie Patel PA-C - 05/20/2024 10:54 AM EST 3 months after her last venofer infusion Suzie Patel PA-C [facility]12-13-2024 Telephone encounter Note* Telephone Encounter - Greer Erazo - 05/16/2024 12:49 PM EST I will call patient with results and appointments will be made from there Suzie: When would you like patient to follow up next? Greer Semangela [facility]12-13-2024 Telephone encounter Note* Telephone Encounter - Muriel Aguiar RN - 05/16/2024 12:19 PM EST Please call and advise that her transferrin saturation remains low and she likely would benefit from iv iron if she would like ----- Message ----- From: Lab, Background User Sent: 05/15/2024 10:38 AM EST To: Suzie Patel PA-C Pt aware and would like to proceed with IV Iron, d/t fatigue. Pt will await call to schedule. Shedenies any additional questions, needs or concerns at this time. MM/Pharm: please order Lizz/Fani: please call to schedule Muriel Aguiar RN [facility]12-12-2024 History of Present illness Narrative* Suzie Patel PA-C - 05/15/2024 11:00 AM EST PATIENT NAME: Shauna Christensen DATE: 05/14/2024 PRIMARY CARE PHYSICIAN: Pedro Rodriguez DO Portions of this encounter note have been copied from my note from 03/31/2024 and has been updated where appropriate, and reflect my current medical decision making from today. CC: This is a 69 year old female initially referred for evaluation of iron deficiency anemia, seen for scheduled follow-up. INTERIM HISTORY: Shauna returns for follow up. Her labs in March were trending down, but she remained asymptomatic. She is here to recheck her labs. She remains on oral iron once a day and has been on this since 2022. She states that has been very tired lately. Some days she feels completely wiped out. Other days she is fine. She does note that about a year ago she had surgery on her knee and since then she has not been herself. She feels like she's had trouble getting her thoughts together and finding her words. This has been ongoing for a year. She suspects it had something to do with anesthesia. MEDICATIONS: Current Outpatient Medications Medication Sig aspirin [...] metFORMIN (GLUCOPHAGE) 500 mg tablet MV with Waj-Cdjspmnr-Kercxp (CENTRUM SILVER) 0.4 mg-300 mcg- 250 mcg [...] REVIEW OF SYSTEMS: CONSTITUTION: Negative for pain, weight loss, or appetite loss. +fatigue EENT: Negative for mouth soreness, antibiotics use, [...] Negative for numbness/tingling, dizziness, gait disturbance, headache, +speech disturbance, tremor, hemiparesis/sensory loss, or change in mental status. MUSCULOSKELETAL: Negative for joint pain, joint swelling, or proximal muscle weakness. SKIN: Negative for hair loss, bruising, nail changes, rash, itching, pallor, or jaundice. ENDO/URO: Negative for hot flashes, cold or heat intolerance, urinary frequency, urinary hesitancy,menorrhagia, or hematuria. PSYCH: Negative for anxiety, depression, or other. PHYSICAL EXAM: BP 144/83 Pulse 70 Temp 36.4 C (97.5 F) (Temporal) Resp 16 Ht 159.6 cm (5' 2.84 ) Wt 82.9 kg (182 lb 12.2 oz) SpO2 99% BMI 32.54 kg/m General: Alert and oriented, no distress, pleasant and cooperative. Heart: Regular, normal S1 and S2, no murmurs, rubs, or gallops Lungs: Clear to auscultation bilaterally Abdomen: Benign Extremities: Feet/ankles without edema, posterior tibial pulses full and symmetrical LABS: Hemoglobin (g/dL) Date Value 05/15/2024 13.3 Hematocrit (%) Date Value 05/15/2024 39.4 WBC (k/uL) Date Value 05/15/2024 9.23 Platelet Count (k/uL) Date Value 05/15/2024 263 ASSESSMENT/PLAN: 1. Iron deficiency anemia - ICD9: [...] June 2022 stools for occult blood were negative.She has remained on oral iron daily since that time. Her last iron levels showed a low transferrin saturation and borderline ferritin level. Today she is fatigued and her iron levels are pending. If low, will offer venofer 200 mg IVP x 5 doses. 2. Acquired hypothyroidism - ICD9: 244.9, ICD10: E03.9 Stable on current medications, continue per PCP. 3. Arthritis - ICD9: 716.90, ICD10: M19.90 Chronic bilateral knee pain secondary to osteoarthritis. Currently the patient is scheduled undergoa right TKA February 2023. 4. Memory loss I offered her a neurology consult to work up her neurologic symptoms she has had for a year, but she declined for now. Suzie Patel PA-C I spent a total of 30 minutes on the date of the service which included preparing to see the patient, [id number] patient care, completing clinical documentation, performing a medically appropriate examination, counseling and educating the patient/family/caregiver, ordering medications, tests, or p rocedures, independently interpreting results (not separately reported), communicating results to the patient/family/caregiver, and care coordination (not separately reported). documented in this encounterProv[facility]12-12-2024 NoteHNO ID: [id number] Author: SUZIE PATEL PA-C Service: ? Author Type: Physician Ash Worker Type: Progress Notes Filed: 05/15/2024 11:06 Note Text: PATIENT NAME: Shauna Christensen DATE: 05/14/2024 PRIMARY CARE PHYSICIAN: Pedro Rodrigeuz DO Portions of this encounter note have been copied from my note from 03/31/2024 and has been updated where appropriate, and reflect my current medical decision making from today. CC: This is a 69 year old female initially referred for evaluation of iron deficiency anemia, seen for scheduled follow-up. INTERIM HISTORY: Shauna returns for follow up. Her labs in March were trending down, but she remained asymptomatic. She is here to recheck her labs. She remains on oral iron once a day and has been on this since 2022. She states that has been very tired lately. Some days she feels completely wiped out. Other days she is fine. She does note that about a year ago she had surgery on her knee and since then she has not been herself. She feels like she's had trouble getting her thoughts together and finding her words. This has been ongoing for a year. She suspects it had something to do with anesthesia. MEDICATIONS: Current Outpatient Medications Medication Sig aspirin [...] metFORMIN (GLUCOPHAGE) 500 mg tablet MV with Pkh-Whlqvlwx-Hypbfb (CENTRUM SILVER) 0.4 mg-300 mcg- 250 mcg [...] REVIEW OF SYSTEMS: CONSTITUTION: Negative for pain, weight loss, or appetite loss. +fatigue EENT: Negative for mouth soreness, antibiotics use, [...] Negative for numbness/tingling, dizziness, gait disturbance, headache, +speech disturbance, tremor, hemiparesis/sensory loss, or change in mental status. MUSCULOSKELETAL: Negative for joint pain, joint swelling, or proximal muscle weakness. SKIN: Negative for hair loss, bruising, nail changes, rash, itching, pallor, or jaundice. ENDO/URO: Negative for hot flashes, cold or heat intolerance, urinary frequency, urinary hesitancy, menorrhagia, or hematuria. PSYCH: Negative for anxiety, depression, or other. PHYSICAL EXAM: BP 144/83 Pulse 70 Temp 36.4 ?C (97.5 ?F) (Temporal) Resp 16 Ht 159.6 cm (5' 2.84 ) Wt 82.9 kg (182 lb 12.2 oz) SpO2 99% BMI 32.54 kg/m? General: Alert and oriented, no distress, pleasant and cooperative. Heart: Regular, normal S1 and S2, no murmurs, rubs, or gallops Lungs: Clear to auscultation bilaterally Abdomen: Benign Extremities: Feet/ankles without edema, posterior tibial pulses full and symmetrical LABS: Hemoglobin (g/dL) Date Value 05/15/2024 13.3 Hematocrit (%) Date Value 05/15/2024 39.4 WBC (k/uL) Date Value 05/15/2024 9.23 Platelet Count (k/uL) Date Value 05/15/2024 263 ASSESSMENT/PLAN: 1. Iron deficiency anemia - ICD9: 280.9, ICD10: D50.9 (primary diagnosis) The patient was initially diagnosed with iron deficiency anemia after de (more content not included)...[facility]10-29-2024 Telephone encounter Note* Telephone Encounter - Muriel Aguiar RN - 04/01/2024 3:36 PM EDT Pt aware and agreeable to plan of care. Denies any symptoms of lightheaded/dizziness/fatigue, etc. Pt transferred to [facility] to schedule repeat labs/ MM in May. Pt denies any questions, needs or concerns at this time. Muriel Aguiar RN [facility]10-29-2024 Miscellaneous Notes* Telephone Encounter - Muriel Aguiar RN - 04/01/2024 3:36 PM EDT Pt aware and agreeable to plan of care. Denies any symptoms of lightheaded/dizziness/fatigue, etc. Pt transferred to [facility] to schedule repeat labs/ MM in May. Pt denies any questions, needs or concerns at this time. Muriel Aguiar RN * Telephone Encounter - Muriel Aguiar RN - 04/01/2024 3:34 PM EDT ----- Message from Suzie Patel PA-C sent [...] back. Suzie Patel PA-C documented in this encounterProv[facility] Hospital10-29-2024 Telephone encounter Note * Telephone Encounter - Muriel Aguiar RN - 04/01/2024 3:34 PM EDT ----- Message from Suzie Patel PA-C sent [...] and see me back. Suzie Patel PA-C [facility]10-28-2024 History of Present illness Narrative* Suzie Patel PA-C - 03/31/2024 2:30 PM EDT PATIENT NAME: Shauna Christensen DATE: 03/31/2024 PRIMARY [...] dizziness, restless less, pacophagia. Her last colonoscopy wasnegative in 2020. She reports that her PCP [...] metFORMIN (GLUCOPHAGE) 500 mg tablet MV with Ptd-Zwbpnhhy-Uebnii (CENTRUM SILVER) 0.4 mg-300 mcg- 250 mcg [...] June 2022 stools for occult blood were negative.She has remained on oral iron daily since that time and today feels well and her hemoglobin remainsstable at 13.6 today with normal MCV. Her iron studies are pending and if normal she could potentially stop oral iron, however the patient wishes to continue. At this time she is no longer anemic and her iron levels are pending. I recommend she continue oraliron daily. She would like to follow up with us as needed. 2. Acquired hypothyroidism - ICD9: 244.9, ICD10: E03.9 Stable on current medications, continue per PCP. 3. Arthritis - ICD9: 716.90, ICD10: M19.90 Chronic bilateral knee pain secondary to osteoarthritis. Currently the patient is scheduled undergoa right TKA February 2023. Suzie Patel PA-C I spent a total of 25 minutes on the date of the service which included preparing to see the patient, [id number] patient care, completing clinical documentation, performing a medically appropriate examination, counseling and educating the patient/family/caregiver, ordering medications, tests, or p rocedures, independently interpreting results (not separately reported), communicating results to the patient/family/caregiver, and care coordination (not separately reported). documented in this encounterProvidence Hospital10-28-2024 NoteHNO ID: [id number] Author: SUZIE PATEL PA-C Service: ? Author Type: Physician Ash Worker Type: Progress Notes Filed: 03/31/2024 15:02 Note [...] metFORMIN (GLUCOPHAGE) 500 mg tablet MV with Mnb-Vvdajeon-Yhenwn (CENTRUM SILVER) 0.4 mg-300 mcg- 250 mcg [...] was initially diagnosed w (more content not included)...[facility]10-16-2024 Telephone encounter Note* Telephone Encounter - Emily Ta MA - 03/19/2024 11:38 AM EDT Patient has an appt on 03/31/24. Would you like labs, if so place orders. Emily Ta MA [facility]10-16-2024 Miscellaneous Notes* Telephone Encounter - Emily Salazar MA - 03/19/2024 11:38 AM EDT Patient has an appt on 03/31/24. Would you like labs, if so place orders. Emily Ta MA documented in this encounterProvidence Hospital08-26-2024 Miscellaneous Notes* Telephone Encounter - Janet Gutierrez - 01/28/2024 12:01 PM EDT Patient needs a referral to [facility], said that we were supposed to send it in 01/16 * Telephone Encounter - Pedro Rodriguez DO - 01/28/2024 12:01 PM EDT Okay but her last labs were good * Telephone Encounter - Janet Gutierrez - 01/28/2024 12:01 PM EDT REFERRAL SENT documented in this encounterTriHealth08-26-2024 Telephone encounter Note* Telephone Encounter - Janet Gutierrez - 01/28/2024 12:01 PM EDT Patient needs a referral to [facility], said that we were supposed to send it in 01/16 [facility]08-26-20[facility] Telephone encounter Note* Telephone Encounter - Pedro Rodriguez DO - 01/28/2024 12:01 PM EDT Okay but her last labs were good [facility]08-26-2024 Telephone encounter Note* Telephone Encounter - Janet Gutierrez - 01/28/2024 12:01 PM EDT REFERRAL SENT [facility]08-15-2024 History of Present illness Narrative* Pedro Rodriguez, DO - 01/17/2024 1:30 PM EDT Subjective Patient ID: Shauna Christensen is a 68 y.o. female. Dior presents today to recheck her iron. She has been taking her iron supplement. She does feel tired. She has seen the snack bar cashier in the past. She had a colonoscopy to rule out colon cancer. Shejust has trouble absorbing it. She does take a baby aspirin 81 mg daily. She does not have any heartburn issues. When she saw the snack bar cashier he was contemplating giving her an iron infusion. She was taking aspirin for a superficial phlebitis. She was taking 2 aspirin a day but then cut back to 1. She had to go to the urgent care the other day for a rash on her face. It was around her eyes so they sent her to the emergency room. She was given a shot of Kenalog 80 mg IM and started on oral prednisone. She still has the rash in his itchy but it is getting better. She does not have any breathing issues. The following portions of the patient's history were reviewed and updated as appropriate: allergies, current medications, past family history, past medical history, past social history, past surgicalhistory, problem list, and medication reconciliation was completed including current medication andpost discharge medication. Review of Systems Objective Physical Exam Constitutional: General: She is not in acute distress. Appearance: She is obese. She is not ill-appearing. HENT: Head: Normocephalic. Eyes: General: No scleral icterus. Extraocular Movements: Extraocular movements intact. Conjunctiva/sclera: Conjunctivae normal. Cardiovascular: Rate and Rhythm: Normal rate and regular rhythm. Pulses: Normal pulses. Heart sounds: No murmur heard. Pulmonary: Effort: Pulmonary effort is normal. No respiratory distress. Breath sounds: Normal breath sounds. No wheezing, rhonchi or rales. Musculoskeletal: Cervical back: Neck supple. Right lower le+ Pitting Edema present. Left lower leg: No edema. Lymphadenopathy: Cervical: No cervical adenopathy. Skin: Findings: Erythema and rash (Edema consistent with wheels around both eyes and face) present. Neurological: General: No focal deficit present. Mental Status: She is alert and oriented to person, place, and time. Psychiatric: Attention and Perception: Attention normal. Mood and Affect: Mood and affect normal. Speech: Speech normal. Behavior: Behavior normal. Behavior is cooperative. Thought Content: Thought content normal. Cognition and Memory: Cognition normal. Judgment: Judgment normal. Assessment/Plan Dior was seen today for discuss iron. Diagnoses and all orders for this visit: Iron deficiency anemia secondary to inadequate dietary iron intake - Iron and TIBC; Future - CBC; Future Check iron, TIBC and CBC. May need to see the snack bar cashier again. Obesity (BMI 30-39.9) She is obese. She would benefit from weight loss. Diet exercise and weight loss discussed. Allergic contact dermatitis due to plants, except food Continue prednisone. It should resolve. Go to the ER if you get short of breath. documented in this encounterTriHealth07-09-2024 History of Present illness Narrative* Pedro Rodriguez DO - 12/11/2023 3:20 PM EDT Subjective SUBJECTIVE: Patient ID: Shauna Christensen is a 68 y.o. female who presents for a Medicare Annual Wellness exam. HPI The following portions of the patient's history were reviewed and updated as appropriate: allergies, current medications, past family history, past medical history, past social history, past surgicalhistory and problem list. AWV FLOWSHEET : Lifestyle Assessment Do you smoke or use smokeless tobacco?: No If you smoke or use smokeless tobacco, are you ready to quit?: NA Are you exposed to secondhand smoke?: No On average, how many drinks of alcohol do you consume in a week?: 2 - 5 Do you exercise for 30 or more minutes on average at least 3 days a week?: Often Do you have any tooth, denture, or oral problems?: No Do you snore or has anyone told you that you snore?: No Do you try to eat a balanced diet?: Yes Do you experience leakage of urine, also known as urinary incontinence?: Never Do you have difficulty performing any of these activities? (check all that apply): None Do you have difficulty performing any of these activities? (check all that apply): None Fall Risk Fall Risk Assessment Completed?: Yes Have you fallen in the past year?: No Are you worried about falling?: No Do you feel unsteady when standing or walking?: No Risk Stratification: Low Risk Depression Screening Little interest or pleasure in doing things: Not at all Feeling down, depressed, or hopeless: Not at all Trouble falling or staying asleep, or sleeping too much: Not at all Feeling tired or having little energy: Not at all Poor appetite or overeating: Not at all Feeling bad about yourself - or that you are a failure or have let yourself or your family down: Not at all Trouble concentrating on things, such as reading the newspaper or watching television: Not at all Moving or speaking so slowly that other people could have noticed. Or the opposite - being so fidgety or restless that you have been moving around a lot more than usual: Not at all Thoughts that you would be better off , or of hurting yourself in some way: Not at all PEG Scale Safety Assessment Do you have throw rugs on the floor?: No Do you feel safe at your home?: Yes Do you feel unsteady when walking?: No Are you having difficulty with driving?: No Do you have trouble seeing?: No What assistive device do you use? (check all that apply): None Hearing Assessment Do you strain or struggle to hear/understand conversations?: No Do you have trouble hearing the television or radio when others do not?: No Does your family ever voice concerns about your hearing?: No Do you wear hearing aid/s?: No Personal Health During the past 4 weeks, how would you rate your overall health?: Very Good Do you understand how to take all of your medications?: Yes How confident are you that you can control and manage most of your health problems?: Very confident In the past 12 months, how many times have you been hospitalized?: None End of Life Planning Do you have a living will?: Yes Do you have a durable power of senior clerk?: Yes Cognitive Screening Do you have trouble remembering or recalling facts or events?: No Do family members or caregivers report that you have difficulty remembering things?: No 6[employer] Normal REVIEW OF SYSTEMS: Review of Systems Objective PHYSICAL EXAMINATION: Vitals: 12/11/23 1506 BP: 120/72 Weight: 82.6 kg (182 lb 3.2 oz) Height: 160 cm (5' 3 ) Physical Exam Assessment/Plan ASSESSMENT/PLAN Encounter Diagnoses Name Primary? Medicare annual wellness visit, subsequent Yes Screening for depression Health maintenance discussed. Depression screen was negative. At least 3 minutes spent administering and discussing. Cognitive evaluation did not reveal any impairment. She has advanced directives in place. Return in about 1 year (around 12/10/2024). documented in this encounterTriHealth06-24-2024 History of Present illness Narrative* Pedro Rodriguez DO - 11/26/2023 11:00 AM EDT Subjective Patient ID: Shauna Christensen is a 68 y.o. female. Dior presents today for a DEXA scan. She has not had any recent fractures. She takes calcium withvitamin-D supplements. The following portions of the patient's history were reviewed and updated as appropriate: allergies, current medications, past family history, past medical history, past social history, past surgicalhistory, problem list, and medication reconciliation was completed including current medication andpost discharge medication. Review of Systems Objective Physical Exam Exam conducted with a site leasing agent present (Baltazar Gomez MS III). Constitutional: General: She is not in acute distress. Appearance: She is obese. HENT: Head: Normocephalic. Pulmonary: Effort: Pulmonary effort is normal. Musculoskeletal: General: No deformity. Assessment/Plan Diagnoses and all orders for this visit: Osteopenia, unspecified location Continue supplementation. Check DEXA to see if it has progressed. Asymptomatic postmenopausal state Check DEXA scan. documented in this encounterTriHealth05-08-2024 History of Present illness Narrative* Pedro Rodriguez DO - 10/10/2023 10:45 AM EDT Subjective Patient ID: Shauna Christensen is a 68 y.o. female. Dior presents today for a CV recheck. She is taking her medication and is not having any side effects. She does have swelling in her right lower leg from her knee replacement surgery that she had last February. She would like compression hose for that. Her knee is slowly improving. Her family protection specialist notes that it has taken longer than usual for her to improve but it is gradually getting better. More active this summer. The following portions of the patient's history were reviewed and updated as appropriate: allergies, current medications, past family history, past medical history, past social history, past surgicalhistory, problem list, and medication reconciliation was completed including current medication andpost discharge medication. Review of Systems Objective Physical Exam Constitutional: General: She is not in acute distress. Appearance: She is obese. She is not ill-appearing. HENT: Head: Normocephalic. Eyes: General: No scleral icterus. Extraocular Movements: Extraocular movements intact. Conjunctiva/sclera: Conjunctivae normal. Neck: Vascular: No carotid bruit. Cardiovascular: Rate and Rhythm: Normal rate and regular rhythm. Pulses: Normal pulses. Heart sounds: Normal heart sounds. No murmur heard. Pulmonary: Effort: Pulmonary effort is normal. No respiratory distress. Breath sounds: Normal breath sounds. No wheezing, rhonchi or rales. Musculoskeletal: Cervical back: Neck supple. Right lower le+ Pitting Edema present. Left lower leg: No edema. Lymphadenopathy: Cervical: No cervical adenopathy. Neurological: General: No focal deficit present. Mental Status: She is alert and oriented to person, place, and time. Psychiatric: Attention and Perception: Attention normal. Mood and Affect: Mood and affect normal. Speech: Speech normal. Behavior: Behavior normal. Behavior is cooperative. Thought Content: Thought content normal. Cognition and Memory: Cognition normal. Judgment: Judgment normal. Assessment/Plan Dior was seen today for hyperlipidemia and hypertension. Diagnoses and all orders for this visit: Mixed hyperlipidemia - Comprehensive metabolic panel; Future Check CMP and lipids. Iron deficiency anemia secondary to inadequate dietary iron intake - CBC; Future - Iron and TIBC; Future Check CBC and iron studies.She may need to go back to see the snack bar cashier. Impaired fasting glucose - Hemoglobin A1c; Future - Comprehensive metabolic panel; Future Check A1c Pedal edema - Compression stockings Prescription for compression hose given Chronic diastolic heart failure (CMS-HCC) ? Diagnosis. Put in in 2016 but no echo. She had a stress echo and EF was good with no mention of diastolic dysfunction. Consider echo. documented in this encounterMercy Health Defiance [email or web address] DBA eGifter [facility] [id number] History of Present illness Narrative* Taryn Peguero, PT - 07/06/2023 9:00 AM EST Physical Therapy Physical Therapy Treatment Visit Patient [...] for inflammation and muscle soreness (prn) Goals Keg Raiser Goals Goal 1 : Patient will demonstrate [...] below. Physician Signature: Date: documented in this encounterSaint John's Saint [facility] [id number] History of Present illness Narrative* Jr. Krishna Trujillo, - 07/04/2023 8:00 AM EST Images from the original note were not [...] tablet 1 tablet, Oral, Every morning biotin 87548 MCG tablet 1 capsule, Every 24 hours Calcium Carbonate (CALCIUM 600 PO) Oral cholecalciferol (VITAMIN D-3) 14,000 Units, Oral, Daily ferrous sulfate 325 mg, Oral, Daily with breakfast levothyroxine (SYNTHROID, LEVOXYL) 50 mcg, Oral, Daily RT metFORMIN (Glucophage) 500 MG tablet dihqrxjuouax-saxd-cfcksdwt-folic acid (Centrum Silver, geriatric,) tablet as directed [...] Encounter Procedures Ambulatory referral to Physical Therapy Victoriamax Frank Gaspar Continue to increase strength and ROM Standing [...] pleased with her right knee progress as sheadmits her right knee is better now than it was prior to sx. Patient states that she did a 2 mile hike at [facility] ~2 weeks ago. She has good strength and ROM, she feels she cotninues to benefit from formal physical therapy - we are recommending additional visits. We have discussed her HEP and restrictions and will see her back 6 months, when she returns from [place] to reassess her right knee ROM. May Sabillon MA documented in this encounterSaint John's Saint Francis [id number] History of Present illness Narrative* Janelle Auguste, OR NURSE MANAGER-PULPIT OPERATOR - 06/19/2023 9:00 AM EST Subjective Patient ID: Shauna Christensen is a [...] past medical history, past social history, past surgicalhistory, problem list, and medication reconciliation was completed including current medication andpost discharge medication. Review of Systems Constitutional: Positive [...] weakness. Coordination: Romberg sign negative. Coordination normal. Osphjg-Gisk-Kttssw Test normal. Gait: Gait normal. Deep Tendon [...] all orders for this visit: 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[facility]) - Osmolality, urine; Future - Urinalysis (clean [...] can be expected from anesthesia affects 3 monthspost surgery DAVID Rodriguez 06/19/23 1214 documented in this encounterTriHealth11-22-2023 Evaluation note* Encounter Date Diagnosis Assessment Notes Treatment Notes Treatment Clinical Notes Apr, Dysuria (ICD-10 - R30.0) Apr, [...] no improvement in 2 to 3 days [employer] Other 05-09-2023 Miscellaneous Notes* Telephone Encounter - Tabby Falcon RN - 10/10/2022 11:24 AM EDT Thank you. Tabby Falcon RN * Telephone Encounter - Laury Chappell - 10/10/2022 7:11 AM EDT Faxed to [facility] * Telephone Encounter - Tabby Falcon RN - 10/09/2022 4:51 PM EDT PSS: Can you send the labs BRM ordered today to the [facility]. LMOV for patient to call the hospital first before heading over. * Telephone Encounter - Augustin Vital MD - 10/09/2022 4:26 PM EDT Orders placed for CBC and iron studies. Yarely, B * Telephone Encounter - Tabby Falcon RN - 10/09/2022 4:09 PM EDT Patient states she does not see you until 01/04/23 but is just not feeling well. Would like to have some iron study lab work done. Would like to have that drawn at [facility]. If you place orders you would like, we can send to [place]. Please review and advise. ' Thanks. Tabby Falcon RN documented in this encounterProvidence Hospital05-03-2023 Evaluation note* Encounter Date Diagnosis Assessment [...] fevers October, Hematuria, unspecified (ICD-10 - R31.9) [employer] Other 03-30-2023 History of Present illness Narrative* [...] metFORMIN (GLUCOPHAGE) 500 mg tablet MV with Zut-Orvrywgm-Socfxc (CENTRUM SILVER) 0.4 mg-300 mcg- 250 mcg [...] 2023. Augustin Vital MD documented in this encounterProvidence Hospital01-23-2023 Miscellaneous Notes* Telephone Encounter - Silvana [...] We will see her back as scheduled. STEPHANIE Pritchett documented in this encounterProvidence Hospital01-19-2023 History of Present illness Narrative* Augustin [...] metFORMIN (GLUCOPHAGE) 500 mg tablet MV with Lat-Rsrhbzut-Pfxtjs (CENTRUM SILVER) 0.4 mg-300 mcg- 250 mcg [...] 2023. Augustin Vital MD documented in this encounterProvidence Hospital01-18-2023 Note [id number] note* Diagnosis Iron deficiency anemia, unspecified iron deficiency anemia type- Primary documented in this encounter [facility] note* Diagnosis Iron deficiency anemia, unspecified iron deficiency anemia type- Primary documented in this encounter [facility] noteNo assessment information availableAshtabula [facility] Work Phone: Evaluation note* Diagnosis Acute pain of right knee- Primary History of total knee replacement, right documented in this encounter [facility]Eval[facility]* Diagnosis Unilateral primary osteoarthritis, right knee- Primary Status post right knee replacement documented in this encounter [facility] note* Diagnosis Iron deficiency anemia, unspecified iron deficiency anemia type- Primary documented in this encounter [facility] note* Diagnosis Iron deficiency anemia, unspecified iron deficiency anemia type- Primary documented in this encounter [facility] note* Diagnosis Iron deficiency anemia, unspecified iron deficiency anemia type- Primary documented in this encounter [facility] note* Diagnosis Iron deficiency anemia, unspecified iron deficiency anemia type- Primary documented in this encounter [facility] note* Diagnosis Iron deficiency anemia, unspecified iron deficiency anemia type- Primary documented in this encounter [facility] note* Diagnosis Iron deficiency anemia, unspecified iron deficiency anemia type- Primary [facility]* Diagnosis Iron deficiency anemia, unspecified iron deficiency anemia type- Primary [facility]* Diagnosis Iron deficiency anemia, unspecified iron deficiency anemia type- Primary [facility]* Diagnosis Seborrheic keratosis- Primary Inflamed seborrheic keratosis documented in this encounter [facility]* Diagnosis Mixed hyperlipidemia- Primary Iron deficiency anemia secondary to inadequate dietary iron intake Impaired fasting glucose Pedal edema Edema Chronic diastolic heart failure ([facility]) documented in this encounter [facility]* Diagnosis 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[facility])- Primary Diabetes insipidus Fatigue, unspecified type 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 Poor concentration Memory loss documented in this encounter [facility]* Diagnosis Osteopenia, unspecified location- Primary Asymptomatic postmenopausal state documented in this encounter [facility]* Diagnosis Medicare annual wellness visit, subsequent- Primary Screening for depression documented in this encounter [facility]* Diagnosis Iron deficiency anemia secondary to inadequate dietary iron intake- Primary Obesity (BMI 30-39.9) Allergic contact dermatitis due to plants, except food Contact dermatitis and other eczema due to plants (except food) documented in this encounter [facility]* Diagnosis Iron deficiency anemia due to dietary causes- Primary Iron deficiency anemia secondary to inadequate dietary iron intake documented in this encounter [facility]* Diagnosis Iron deficiency anemia, unspecified iron deficiency anemia type- Primary documented in this encounter [facility]* Diagnosis Mixed hyperlipidemia- Primary Acquired hypothyroidism Unspecified hypothyroidism Obstructive sleep apnea Obstructive sleep apnea (adult) (pediatric) Pedal edema Edema Class 1 obesity due to excess calories with serious comorbidity and body mass index (BMI) of 32.0 to 32.9 in adult documented in this encounter [facility] note* Diagnosis Medicare annual wellness visit, subsequent- Primary Screening for depression documented in this encounter [facility]* Diagnosis Iron deficiency anemia, unspecified iron deficiency anemia type- Primary documented [facility] this encounter [facility]* Diagnosis Iron deficiency anemia, unspecified iron deficiency anemia type- Primary documented in this encounter [facility]* Diagnosis Iron deficiency anemia, unspecified iron deficiency anemia type- Primary documented [facility] this encounter [facility]* Diagnosis Iron deficiency anemia, unspecified iron deficiency anemia type- Primary documented in this encounter [facility] Narrative - Reported* Type Description Date Medical History bladder leakage Medical History rosacea Medical History venous insufficiency Surgical History C section x 2 Surgical History Right and left meniscus tear Surgical History plugged duct left breast Hospitalization History see above [employer] Other History general Narrative - Reported* Type Description Date Medical History bladder leakage Medical History rosacea Medical History venous insufficiency Surgical History C section x 2 Surgical History Right and left meniscus tear Surgical History plugged duct left breast Surgical History knee replacement 02/2023 Hospitalization History see above [employer] Other InstructionsNot on filedocumented in this encounter [facility]Not on filedocumented in this encounter [facility] SystemInstructionsNot on filedocumented in this encounter [facility] SystemInstructionsNot on filedocumented in this encounter [facility] SystemInstructionsNot on filedocumented in this encounter [facility] SystemInstructionsNot on filedocumented in this encounter [facility] SystemInstructionsNot on filedocumented in this encounter [facility] SystemInstructionsNot on filedocumented in this encounter [facility] SystemInstructionsNot on filedocumented in this encounter [facility] SystemReason for referral (narrative)* Consultation (Routine) - Pending Review Specialty Diagnoses / Procedures Referred By Clarisse flores Referred To Contact Physical Therapy Diagnoses Acute pain of right knee Procedures SD OFFICE/OUTPATIENT NEW HIGH MDM 60 MINUTES Jr. Krishna Trujillo, DO [address] [facility] [address] [place] [address] Oneal Weston, PT [address] [facility] [address] [place] [address] Referral ID Status Reason Start Date Expiration Date Visits Requested Visits Authorized [id number] Pending Review Consult and Treat 07/04/2023 12/31/2023 1 1 [place] [facility] (narrative)* Consultation (Routine) - Pending Review Specialty Diagnoses / Procedures Referred By Clraisse flores Referred To Contact Hematology Diagnoses Iron deficiency anemia due to dietary causes Pedro Rodriguez, DO [address] [place] [address] Augustin Vital MD [address] [place] [address] [place] [address] Referral ID Status Reason Start Date Expiration Date Visits Requested Visits Authorized [id number] Pending Review Specialty Services Required 01/28/2024 01/27/2025 1 1 [facility]HealthReason for referral (narrative)No reason for referral information availableMercy Health [facility] Work Phone: Reason for visit Narrative* Consult, Test, Treat (Routine) - Closed Specialty Diagnoses / Procedures Referred By Contac t Referred To Contact Gastroenterology Diagnoses Iron deficiency anemia, unspecified iron deficiency anemia type Procedures CONSULT TO GASTROENTEROLOGY OFFICE/OUTPATIENT [facility] 60 MINUTES Suzie Patel PA-C [address] [place] [address] [place] [address] Phone: tel: fax: Referral ID Status Reason Start Date Expiration Date V isits Requested Visits Authorized [id number] Closed PCP Requested Referral 12/22/2024 12/22/2025 1 1 [facility] HospitalReason for visit Narrative* [place] Prior Authorization (Routine) - Authorized Specialty Diagnoses / Procedures Referred By Contac t Referred To Contact Diagnoses Iron deficiency anemia, unspecified iron deficiency anemia type Procedures IRON SUCROSE INJECTION PER 1 MG Suzie Patel PA-C [address] [place] [address] [place] [address] Phone: tel: fax: Hematology/Oncology [address] [place] [address] [place] [address] Phone: tel: fax: Referral ID Status Reason Start Date Expiration Date V isits Requested Visits Authorized [id number] Authorized 12/25/2024 04/03/2025 99 99 [facility] Summary Purpose Family History No Family History Records Found Relationship Condition Age at Onset Recorded Date/T andree father Unknown family member Unknown mother Malignant neoplasm Unknown Unknown Advance Directives No Advanced Directives Records Found Advance Directive Response Recorded Date/ Time Advance Directives No August 20, 019 10:18am Advance Directive Response Recorded Date/ Time Advance Directives No August 20 11:18am Chief Complaint and Reason for Visit Chief Complaint Dysuria Chief Complaint poison prema face/hand s Chief Complaint Admit Date Refer: VERN February 18, 2025 1:23pm Reason for Visit Admit Date Iron deficiency anemia February 18 1:23pm Additional Source Comments INFORMATION SOURCE (unrecogn ized section and content) DATE CREATED AUTHOR 02/11/2022 [facility] DATE CREATED AUTHOR AUTHOR'S ORGANIZ ATION 06/12/2022 [facility] dical Specialist DATE CREATED AUTHOR AUTHOR'S ORGANIZ ATION 08/12/2022 [facility] DATE CREATED AUTHOR AUTHOR'S ORGANIZ ATION 10/15/2022 [facility] DATE CREATED AUTHOR AUTHOR'S ORGANIZ ATION 05/09/2023 [facility] DATE CREATED AUTHOR AUTHOR'S ORGANIZ ATION 01/19/2024 [facility] DATE CREATED AUTHOR AUTHOR'S ORGANIZ ATION 12/16/2024 [facility] DATE CREATED AUTHOR AUTHOR'S ORGANIZ ATION 02/24/2025 [facility] DATE CREATED AUTHOR AUTHOR'S ORGANIZ ATION 03/18/2025 [facility] dical Specialists [facility] DATE CREATED AUTHOR AUTHOR'S ORGANIZ ATION 03/19/2025 [facility] Source Comments (unrecognize d section and content) In the event this informatio n is protected by the Federal Confidentiality of Alcohol and Drug Abuse Patient Records regulations: The Federal rules restrict any use of the information to criminally investigate or prosecute any alcohol or drug abuse patient.Providence HospitalIn the event this information is protected by the Federal Confidentiality of Alcohol and Drug Abuse Patient Records regulations: The Federal rules restrict any use of the information to criminally investigate or prosecute any alcohol or drug abuse patient.Prov[facility] HospitalIn the event this information is protected by the Federal Confidentiality of Alcohol and Drug Abuse Patient Records regulations: The Federal rules restrict any use of the information to criminally investigate or prosecute any alcohol or drug abuse patient.Prov[facility] HospitalIn the event this information is protected by the Federal Confidentiality of Alcohol and Drug Abuse Patient Records regulations: The Federal rules restrict any use of the information to criminally investigate or prosecute any alcohol or drug abuse patient.Prov[facility] HospitalIn the event this information is protected by the Federal Confidentiality of Alcohol and Drug Abuse Patient Records regulations: The Federal rules restrict any use of the information to criminally investigate or prosecute any alcohol or drug abuse patient.Providence HospitalIn the event this information is protected by the Federal Confidentiality of Alcohol and Drug Abuse Patient Records regulations: The Federal rules restrict any use of the information to criminally investigate or prosecute any alcohol or drug abuse patient.[facility] HospitalIn the event this information is protected by the Federal Confidentiality of Alcohol and Drug Abuse Patient Records regulations: The Federal rules restrict any use of the information to criminally investigate or prosecute any alcohol or drug abuse patient.[facility] HospitalIn the event this information is protected by the Federal Confidentiality of Alcohol and Drug Abuse Patient Records regulations: The Federal rules restrict any use of the information to criminally investigate or prosecute any alcohol or drug abuse patient.[facility] HospitalIn the event this information is protected by the Federal Confidentiality of Alcohol and Drug Abuse Patient Records regulations: The Federal rules restrict any use of the information to criminally investigate or prosecute any alcohol or drug abuse patient.[facility] HospitalIn the event this information is protected by the Federal Confidentiality of Alcohol and Drug Abuse Patient Records regulations: The Federal rules restrict any use of the information to criminally investigate or prosecute any alcohol or drug abuse patient.[facility] HospitalIn the event this information is protected by the Federal Confidentiality of Alcohol and Drug Abuse Patient Records regulations: The Federal rules restrict any use of the information to criminally investigate or prosecute any alcohol or drug abuse patient.[facility] HospitalIn the event this information is protected by the Federal Confidentiality of Alcohol and Drug Abuse Patient Records regulations: The Federal rules restrict any use of the information to criminally investigate or prosecute any alcohol or drug abuse patient.[facility] HospitalIn the event this information is protected by the Federal Confidentiality of Alcohol and Drug Abuse Patient Records regulations: The Federal rules restrict any use of the information to criminally investigate or prosecute any alcohol or drug abuse patient.[facility] HospitalIn the event this information is protected by the Federal Confidentiality of Alcohol and Drug Abuse Patient Records regulations: The Federal rules restrict any use of the information to criminally investigate or prosecute any alcohol or drug abuse patient.[facility] HospitalIn the event this information is protected by the Federal Confidentiality of Alcohol and Drug Abuse Patient Records regulations: The Federal rules restrict any use of the information to criminally investigate or prosecute any alcohol or drug abuse patient.[facility] HospitalIn the event this information is protected by the Federal Confidentiality of Alcohol and Drug Abuse Patient Records regulations: The Federal rules restrict any use of the information to criminally investigate or prosecute any alcohol or drug abuse patient.[facility] HospitalIn the event this information is protected by the Federal Confidentiality of Alcohol and Drug Abuse Patient Records regulations: The Federal rules restrict any use of the information to criminally investigate or prosecute any alcohol or drug abuse patient.[facility] HospitalIn the event this information is protected by the Federal Confidentiality of Alcohol and Drug Abuse Patient Records regulations: The Federal rules restrict any use of the information to criminally investigate or prosecute any alcohol or drug abuse patient.[facility] HospitalIn the event this information is protected by the Federal Confidentiality of Alcohol and Drug Abuse Patient Records regulations: The Federal rules restrict any use of the information to criminally investigate or prosecute any alcohol or drug abuse patient.[facility] HospitalIn the event this information is protected by the Federal Confidentiality of Alcohol and Drug Abuse Patient Records regulations: The Federal rules restrict any use of the information to criminally investigate or prosecute any alcohol or drug abuse patient.[facility] HospitalIn the event this information is protected by the Federal Confidentiality of Alcohol and Drug Abuse Patient Records regulations: The Federal rules restrict any use of the information to criminally investigate or prosecute any alcohol or drug abuse patient.[facility] HospitalIn the event this information is protected by the Federal Confidentiality of Alcohol and Drug Abuse Patient Records regulations: The Federal rules restrict any use of the information to criminally investigate or prosecute any alcohol or drug abuse patient.[facility] HospitalIn the event this information is protected by the Federal Confidentiality of Alcohol and Drug Abuse Patient Records regulations: The Federal rules restrict any use of the information to criminally investigate or prosecute any alcohol or drug abuse patient.[facility] HospitalIn the event this information is protected by the Federal Confidentiality of Alcohol and Drug Abuse Patient Records regulations: The Federal rules restrict any use of the information to criminally investigate or prosecute any alcohol or drug abuse patient.[facility] HospitalIn the event this information is protected by the Federal Confidentiality of Alcohol and Drug Abuse Patient Records regulations: The Federal rules restrict any use of the information to criminally investigate or prosecute any alcohol or drug abuse patient.[facility] HospitalIn the event this information is protected by the Federal Confidentiality of Alcohol and Drug Abuse Patient Records regulations: The Federal rules restrict any use of the information to criminally investigate or prosecute any alcohol or drug abuse patient.[facility] HospitalIn the event this information is protected by the Federal Confidentiality of Alcohol and Drug Abuse Patient Records regulations: The Federal rules restrict any use of the information to criminally investigate or prosecute any alcohol or drug abuse patient.[facility] Care Teams (unrecognized sec tion and content) Tare Weigher Relationship Specialty Start Date End Date Pedro Rodriguez DO [address] [place] [address] PCP - General Family Medicine 06/16/22 Gabo Pearce MD [address] [place] [address] Family Medicine 06/21/22 Tare Weigher Relationship Specialty Start Date End Date Pedro Rodriguez DO [address] [place] [address] PCP - General Family Medicine 06/16/22 Gabo Pearce MD [address] [place] [address] (Fax) Family Medicine 06/21/22 Tare Weigher Relationship Specialty Start Date End Date Pedro Rodriguez DO [address] [place] [address] PCP - General Family Medicine 06/16/22 Gabo Pearce MD [address] [place] [address] (Fax) Family Medicine 06/21/22 Tare Weigher Relationship Specialty Start Date End Date Pedro Rodriguez DO [address] [facility] [place] [address] PCP - General Family Medicine 06/16/22 Gabo Pearce MD [address] [place] [address] (Fax) Family Medicine 06/21/22 Tare Weigher Relationship Specialty Start Date End Date Pedro Rodriguez DO [address] [facility] [place] [address] PCP - General Family Medicine 06/16/22 Gabo Pearce MD [address] [place] [address] (Fax) Family Medicine 06/21/22 Team Status: Inactive Member Role Status Dates RAMON JonesC Attending Provider Active Tare Weigher Relationship Specialty Start Date End Date Pedro Rodriguez MD [address] [place] [address] PCP - General Family Medicine 02/27/23 Tare Weigher Relationship Specialty Start Date End Date Pedro Rodriguez MD [address] [place] [address] PCP - General Family Medicine 02/27/23 Tare Weigher Relationship Specialty Start Date End Date Pedro Rodriguez MD [address] [place] [address] PCP - General Family Medicine 02/27/23 Team Status: Active Member Role Status Dates Pedro Rodriguez DO Primary Care Provider Active Team Status: Inactive Member Role Status Dates Pedro Rodriguez DO Primary Care Provider Active Start: January 16, 2024 End: January 16, 2024 Deann Valentino APRN Attending Provider Active Start: January 16, 2024 End: January 16, 2024 Tare Weigher Relationship Specialty Start Date End Date Pedro Rodriguez DO [address] [place] [address] PCP - General Family Medicine 06/16/22 Gabo Pearce MD [address] [place] [address] Family Medicine 06/21/22 Tare Weigher Relationship Specialty Start Date End Date Pedro Rodriguez [address] [place] [address] PCP - General Family Medicine 06/16/22 Gabo Pearce MD [address] [place] [address] (Fax) Family Medicine 06/21/22 Tare Weigher Relationship Specialty Start Date End Date LynettePedro falcon DO [address] [place] [address] PCP - General Family Medicine 06/16/22 Gabo Pearce MD [address] [place] [address] (Fax) Family Medicine 06/21/22 Tare Weigher Relationship Specialty Start Date End Date LynettelindaPedro french DO [address] [place] [address] PCP - General Family Medicine 06/16/22 Gabo Pearce MD [address] [place] [address] (Fax) Family Medicine 06/21/22 Tare Weigher Relationship Specialty Start Date End Date Pedro Rodriguez DO [address] [place] [address] PCP - General Family Medicine 06/16/22 Gabo eParce MD [address] [place] [address] (Fax) Family Medicine 06/21/22 Tare Weigher Relationship Specialty Start Date End Date LynettelindaPedro french DO [address] [place] [address] PCP - General Family Medicine 06/16/22 Gabo eParce MD [address] [place] [address] (Fax) Family Medicine 06/21/22 Tare Weigher Relationship Specialty Start Date End Date Pedro Rodriguez DO [address] [place] [address] PCP - General Family Medicine 10/12/20 Tare Weigher Relationship Specialty Start Date End Date Pedro Rodriguez DO [address] [place] [address] PCP - General Family Medicine 06/16/22 Gabo Pearce MD [address] [place] [address] (Fax) Family Medicine 06/21/22 Tare Weigher Relationship Specialty Start Date End Date Pedro RodriguezardDO [address] [place] [address] PCP - General Family Medicine 06/16/22 Gabo Pearce MD [address] [place] [address] (Fax) Family Medicine 06/21/22 Tare Weigher Relationship Specialty Start Date End Date Pedro Rodriguez DO [address] [place] [address] PCP - General Family Medicine 06/16/22 Gabo Pearce MD [address] [place] [address] (Fax) Family Medicine 06/21/22 Tare Weigher Relationship Specialty Start Date End Date Pedro Rodriguez DO [address] [place] [address] PCP - General Family Medicine 06/16/22 Gabo Pearce MD [address] [place] [address] (Fax) Family Medicine 06/21/22 Tare Weigher Relationship Specialty Start Date End Date Pedro Rodriguez MD [address] [place] [address] PCP - General Family Medicine 02/27/23 Tare Weigher Relationship Specialty Start Date End Date Pedro Rodriguez MD [address], [place] [address] PCP - General Family Medicine 02/27/23 Tare Weigher Relationship Specialty Start Date End Date Pedro Rodriguez DO [address], [place] [address] PCP - General Family Medicine 10/12/20 Tare Weigher Relationship Specialty Start Date End Date Pedro Rodriguez DO [address], [place] [address] PCP - General Family Medicine 10/12/20 Tare Weigher Relationship Specialty Start Date End Date Pedro Rodriguez DO [address] [address] PCP - General Family Medicine 10/12/20 Tare Weigher Relationship Specialty Start Date End Date Pedro Rodriguez DO [address] [address] PCP - General Family Medicine 10/12/20 Tare Weigher Relationship Specialty Start Date End Date LynettelindaPedro french DO [address], [place] [address] PCP - General Family Medicine 10/12/20 Tare Weigher Relationship Specialty Start Date End Date LynettelindaPedro french [address], [place] [address] PCP - General Family Medicine 10/12/20 Tare Weigher Relationship Specialty Start Date End Date Pedro Rodriguez [address] [address] PCP - General Family Medicine 10/12/20 Tare Weigher Relationship Specialty Start Date End Date Pedro Rodriguez [address] [place] [address] PCP - General Family Medicine 06/16/22 Gabo Pearce MD [address] [facility] [place] [address] (Fax) Family Medicine 06/21/22 Tare Weigher Relationship Specialty Start Date End Date LynettelindaPedro french [address] [place] [address] PCP - General Family Medicine 06/16/22 Gabo Pearce MD [address] [place] [address] (Fax) Family Medicine 06/21/22 Tare Weigher Relationship Specialty Start Date End Date MariPedro french [address] [place] [address] PCP - General Family Medicine 10/12/20 Tare Weigher Relationship Specialty Start Date End Date Jennifer Pedro AyoubDO [address] [place] [address] PCP - General Family Medicine 10/12/20 Tare Weigher Relationship Specialty Start Date End Date JenniferPedroDO [address] [place] [address] PCP - General Family Medicine 06/16/22 Gabo Pearce MD [address] [place] [address] (Fax) Family Medicine 06/21/22 Tare Weigher Relationship Specialty Start Date End Date Jennifer Pedro DunbarDO [address] [place] [address] PCP - General Family Medicine 06/16/22 Gabo Pearce MD [address] [place] [address] (Fax) Family Medicine 06/21/22 Tare Weigher Relationship Specialty Start Date End Date MariPedro french DO [address] [place] [address] PCP - General Family Medicine 06/16/22 Gabo Pearce MD [address] [place] [address] (Fax) Family Medicine 06/21/22 Tare Weigher Relationship Specialty Start Date End Date LynettelindaPedro french DO [address] [place] [address] PCP - General Family Medicine 06/16/22 Gabo Pearce MD [address] [place] [address] (Fax) Family Medicine 06/21/22 Tare Weigher Relationship Specialty Start Date End Date Pedro Rodriguez DO [address] [place] [address] PCP - General Family Medicine 06/16/22 Gabo Pearce MD [address] [place] [address] (Fax) Family Medicine 06/21/22 Tare Weigher Relationship Specialty Start Date End Date MariPedro french DO [address] [place] [address] PCP - General Family Medicine 06/16/22 Gabo Pearce MD [address] [place] [address] Family Medicine 06/21/22 Tare Weigher Relationship Specialty Start Date End Date Pedro Rodriguez MD PCP - General Family Medicine 02/27/23 Team Status: Inactive Member Role Status Dates Pedro Rodriguez DO Primary Care Provider Active Start: February 18, 2025 End: February 18, 2025 Keith Plummer MD Attending Provider Active Start: February 18, 2025 End: February 18, 2025 Tare Weigher Relationship Specialty Start Date End Date Pedro Rodriguez MD [address] [place] [id number] PCP - General Family Medicine 03/11/25 Reason for Visit (unrecogniz ed section and content) Reason Comments Anemia New patient consult Reason Comments Results Reason Comments Anemia 2 month follow up Reason Comments Orders Reason Comments Pain Specialty Diagnoses / Procedures Referred By Contac t Referred To Contact Physical Therapy Diagnoses Presence of right artificial knee joint Procedures SD THERAPEUTIC PX 1/> AREAS EACH 15 MIN EXERCISES PHYS/OCC THERAPY SS SD THER PX 1/> AREAS EACH 15 MIN NEUROMUSC REEDUCA SD MANUAL THERAPY TQS 1/> REGIONS EACH 15 MINUTES Jr. Krishna Trujillo DO [address] [facility] [address] [place] [address] Taryn Peguero, PT [address] [place] [address] Referral ID Status Reason Start Date Expiration Date Visits Re quested Visits Authorized [id number] Closed 06/06/2023 02/22/2024 1 10 Reason Comments Lab Orders Reason Comments Anemia Specialty Diagnoses / Procedures Referred By Contac t Referred To Contact Hematology Diagnoses Iron deficiency anemia due to dietary causes Procedures AMB REFERRAL TO HEMOPHILIA Furlong, Pedro Greta, DO [address] [place] [address] Augustin Vital MD [address] [place] [address] [place] [address] Referral ID Status Reason Start Date Expiration Date V isits Requested Visits Authorized [id number] Outside PCP 01/28/2024 01/27/2025 1 1 Referral ID Status Reason Start Date Expiration Date V isits Requested Visits Authorized [id number] Pending Review 01/28/2024 01/27/2025 1 1 Reason Comments Appointment Specialty Diagnoses / Procedures Referred By Contac t Referred To Contact Diagnoses Iron deficiency anemia, unspecified iron deficiency anemia type Procedures IRON SUCROSE INJECTION PER 1 MG Narciso Aguilar MD [address] [place] [address] [place] [address] Gonzalo Treat Evelyn [address] [place] [address] Referral ID Status Reason Start Date Expiration Date V isits Requested Visits Authorized [id number] Authorized 05/20/2024 05/20/2025 1 5 Reason Onset Date Comments Med Refill 05/26/2024 Reason Comments Patient Question Oral iron Reason Comments Suspicious Skin Lesion Reason Comments Med Refill Reason Comments Hyperlipidemia Hypertension Reason Comments brain fog. 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 [facility] [employer] [facility]. provides no warranty or guarantee of the accuracy or completeness of information in this document.
--- OUTSIDE RECORDS SUMMARY | 2025-03-20 08:53 | XMS_ITS | Encounter Summary ---
[id number] [place] [address] Care Team Providers Care Transplant Registered Nurse Name Role Phone Sharon Pedro Ayoub DO Primary Care Provider Encounter Details Date Type Department Care Team (Late st Contact Info) Description 08/29/2023 [facility] [address] [place] [address] Jenna Rodriguez CMA Social History Tobacco Use Types Packs/Day Years Used Date Smoking Tobacco: Never Smokeless Tobacco: Never Alcohol Use Standard Drinks/Week Comments Yes 0 (1 standard drink = 0.6 oz pur e alcohol) Occasional Social Connection and Isolation Panel Answer Date Recorded In a typical week, how many times do you talk on the phone with family, friends, or neighbors? More than three times a week 09/28/2022 How often do you get togethe r with friends or relatives? Twice a week 09/28/2022 How often do you attend chur or taoist services? More than 4 times per year 09/28/2022 Do you belong to any clubs o r organizations such as sikh groups, unions, fraternal or athletic groups, or school groups? No 09/28/2022 How often do you attend meet ings of the clubs or organizations you belong to? Never 09/28/2022 Are you , , di vorced, , never , or living with a partner? 09/28/2022 AUDIT-C Answer Date Recorded Q1: How often do you have a drink containing alc ohol? 2-3 times a week 09/28/2022 Q2: How many drinks containi ng alcohol do you have on a typical day when you are drinking? 1 or 2 09/28/2022 Q3: How often do you have si x or more drinks on one occasion? Never 09/28/2022 Overall Financial Resource Strain (CARDIA) Answe r Date Recorded How hard is it for you to pa y for the very basics like food, housing, medical care, and heating? Not hard at all 09/28/2022 PHQ-2 Answer Date Recorded Total Score 0 06/19/2023 [employer] - Occupational Stress Questionnaire Answer Date Recorded Do you feel stress - tense, restless, nervous, or anxious, or unable to sleep at night because your mind is troubled all the time - these days? Not at all 09/28/2022 Exercise Vital Sign Answer Date Recorde d On average, how many days pe r week do you engage in moderate to strenuous exercise (like a brisk walk)? 3 days 09/28/2022 On average, how many minutes do you engage in exercise at this level? 40 min 09/28/2022 PRAPARE - Transportation Answer Date Re corded In the past 12 months, has l ack of transportation kept you from medical appointments or from getting medications? No 09/03 In the past 12 months, has l ack of transportation kept you from meetings, work, or from getting things needed for daily living? No 09/28/2022 Housing Instability Answer Date Recorde d Are you worried or concerned that in the next two months you may not have stable housing that you own, rent or stay in as a part of a household? No 09/28/2022 Childcare Answer Date Recorded Do problems getting child ca re make it difficult for you to work or study? No 09/28/2022 Employment Answer Date Recorded Employment Unknown 11/13/2018 Hunger Screening Answer Date Recorded Within the past 12 months we worried whether our food would run out before we got money to buy more. Never True 06/19/2023 Within the past 12 months th e food we bought just didn't last and we didn't have money to get more. Never True 06/19/2023 Purpose - Life Answer Date Recorded I have a purpose and direction in my life. Stron gly Agree 09/28/2022 Comments No Sex and Gender Information Value Date Recorded Sex Assigned at Not on file Legal Sex Female 11:48 AM EDT Gender Identity Not on file Sexual Orientation Not on file documented as of this encounter Miscellaneous Notes * Telephone Encounter - Jenna Rodriguez CMA - 08/29/2023 2:21 PM EDT ----- Message from Pedro Herrera DO sent at 07/02/2023 11:32 AM EST ----- Regarding: CV recheck Please set up * Telephone Encounter - Jenna Rodriguez CMA - 08/29/2023 2:21 PM EDT Spoke to patient and she is going to call later once she gets off at 3 documented in this encounter Plan of Treatment Upcoming Encounters Date Type Department Care Team (Late st Contact Info) Description 03/31/2025 8:15 AM EDT Appointment [facility] [address] [place] [address] Lymphedema 04/23/2025 1:15 PM EST Office Visit [facility] Internal Medicine - Family Medicine [address] [place] [address] Pedro Herrera DO [address] [place] [address] 12/15/2025 3:00 PM EDT Office Visit [facility] - Family Medicine [address] [place] [address] documented as of this encounter Visit Diagnoses Not on filedocumented in this encounter Additional Health Concerns Assessment Noted Time PHQ-9 Depression Total Score: 0 06/19/19 8:59 AM EST A Body Mass Index follow-up plan has been documented for the patient 04/13/2023 1:20 PM EST documented as of this encounter Care Teams Transplant Registered Nurse Relationship Specialty Start Date End Date Pedro Herrera DO [address] [facility] [place] [address] PCP - General Family Medicine 10/12/20 documented as of this encounter
--- OUTSIDE RECORDS SUMMARY | 2025-03-20 08:53 | XMS_ITS | Encounter Summary ---
Author Organization [facility] tem Address [id number] [address] [place] [address] Care Team Providers Care Quantitative Equity Head Name Role Phone SharonPedro Anitra MONROY Primary Care Provider Encounter Details Date Type Department Care Team (Late st Contact Info) Description 10/07/2024 Orders Only [facility] [address] [place] [address] Ref Prov, [place] [address] Social History Tobacco Use Types Packs/Day Years Used Date Smoking Tobacco: Never Smokeless Tobacco: Never Alcohol Use Standard Drinks/Week Comments Yes 0 (1 standard drink = 0.6 oz pur e alcohol) Occasional [facility] Utilities Answer Date Recorded In the past 12 months has e electric, gas, oil, or water company threatened to shut off services in your home? No 10/10/2023 Social Connection and Isolation Panel Answer Date Recorded In a typical week, how many times do you talk on the phone with family, friends, or neighbors? More than three times a week 09/28/2022 How often do you get togethe r with friends or relatives? Twice a week 09/28/2022 How often do you attend chur ch or congregational services? More than 4 times per year 09/28/2022 Do you belong to any clubs o r organizations such as denominational groups, unions, fraternal or athletic groups, or [...] PHQ-2 Answer Date Recorded Total Score 0 10/03/2024 [facility] of Occupat ional Health - Occupational Stress [...] to strenuous exercise (like a brisk walk)? 4 days 12/11/2023 On average, how many minutes do you engage in exercise at this level? 40 min 12/11/2023 PRAPARE - Transportation Answer Date Re corded [...] study? No 09/28/2022 Employment Answer Date Recorded Do you need help finding a [facility] career [facility] and/or a training program? No 10/10/2023 Hunger Screening Answer Date Recorded Within the past 12 months we worried whether our food would run out before we got money to buy more. Never True 10/03/2024 Within the past 12 months th e food we bought just didn't last and we didn't have money to get more. Never True 10/03/2024 Purpose - Life Answer Date Recorded I have a purpose and direction in my life. Val gly Agree 09/28/2022 Comments No Sex and [...] [facility] [address] [place] [address] Lymphedema 04/23/2025 1:15 PM EST Office Visit [facility] [address] [place] [address] Pedro Herrera, DO [address] [place] [address] 12/15/2025 3:00 PM EDT Office Visit [facility] [address] [place] [address] documented as of this encounter Procedures Procedure Name Priority Date/Time Associated Diagnosis Comments LIPID PROFILE Routine 09/09/2024 7:44 AM EDT documented in this encounter Results * Lipid profile (09/09/2024 7:44 AM EDT) Blood Venous blood / Unknown us Not In System Ref Prov LAB BLOOD ORDERABLES Pati l Result MANUALLY TRANSCRIBED RESULTS documented in this encounter Visit Diagnoses Not on filedocumented in this encounter Additional Health Concerns Assessment Noted Time PHQ-9 Depression Total Score: 0 10/04/19 25 10:30 AM EDT A Body Mass Index follow-up plan has been documented for the patient 10/03/2024 1:59 PM EDT documented as of this encounter Care Teams Quantitative Equity Head Relationship Specialty Start Date End Date Pedro Herrera DO [address], [place] [address] PCP - General Family Medicine 10/12/20 documented as of this encounter
--- OUTSIDE RECORDS SUMMARY | 2025-03-20 08:53 | XMS_ITS | Encounter Summary ---
Author Organization [facility] tem Address [id number] [address] [place] [address] Care Team Providers Care Bicycle Rental Clerk Name Role Phone Pedro Herrera DO Primary Care Provider Encounter Details Date Type Department Care Team (Late st Contact Info) Description 09/30/2024 Orders Only [facility] [address] [place] [address] Ilene Lim, CRIME LAB ANALYST Iron deficiency anemia due to dietary causes Social History Tobacco Use Types Packs/Day Years Used Date Smoking Tobacco: Never Smokeless Tobacco: Never Alcohol Use Standard Drinks/Week Comments Yes 0 (1 standard drink = 0.6 oz pur e alcohol) Occasional [facility] Utilities Answer Date Recorded In [...] often do you attend chur ch or temple services? More than 4 times per year 09/28/2022 Do you belong to any clubs o r organizations such as buddhist groups, unions, fraternal or athletic groups, or [...] Answer Date Recorded Total Score 0 10/03/2024 [facility] of Occupat ional Health - Occupational Stress [...] Recorded Do you need help finding a [facility] and/or a training program? No [...] [facility] [address] [place] [address] Lymphedema 04/23/2025 1:15 PM EST Office Visit [facility] [address] [place] [address] Pedro Herrera DO [address] [place] [address] 12/15/2025 3:00 PM EDT [facility] [address] [place] [address] documented as of this encounter Procedures Procedure Name Priority Date/Time Associated Diagnosis Comments AMB REFERRAL TO HEMOPHILIA Routine 09/30/2024 12:36 PM EDT Iron deficiency anemia due to dietary causes documented in this encounter Results * Ambulatory referral to Hematology ([facility]) (09/30/2024 12:36 PM EDT) us Pedro Herrera DO OUTPATIENT REFERRAL ORDERABL ES Final Result MANUALLY TRANSCRIBED RESULTS documented in this encounter Visit Diagnoses Diagnosis Iron deficiency anemia due to dietary causes Iron deficiency anemia secondary to inadequate dietary iron intake Lymphedema Other noninfectious lymphedema documented in this encounter Additional Health Concerns Assessment Noted Time PHQ-9 Depression Total Score: 0 01/17/20 24 1:23 PM EDT A Body Mass Index follow-up plan has been documented for the patient 04/13/2023 1:20 PM EST documented as of this encounter Care Teams Bicycle Rental Clerk Relationship Specialty Start Date End Date Pedro Herrera DO [address] [place] [address] PCP - General Family Medicine 10/12/20 documented as of this encounter
--- OUTSIDE RECORDS SUMMARY | 2025-03-20 08:53 | XMS_ITS | Encounter Summary ---
Author Organization [facility] Address [facility] [id number] [address] [place] [address] Care Team Providers Care Fabric Coating Supervisor Name Role Phone Sharon Pedro Ayoub DO Primary Care Provider Encounter Details Date Type Department Care Team (Late st Contact Info) Description 07/03/2023 Telephone [facility] [address] [place] [phone] Manju Payne CMA Social History Tobacco Use Types Packs/Day [...] How often do you attend chur or congregation services? More than 4 times per year 09/28/2022 Do you belong to any clubs o r organizations such as restorationist groups, unions, fraternal or athletic groups, or [...] Answer Date Recorded Total Score 0 06/19/2023 [facility] of Occupat ional Health - Occupational [...] encounter Miscellaneous Notes * Telephone Encounter - Manju Payne CMA - 07/03/2023 7:58 AM EST ----- Message from Janet Gutierrez sent at 07/02/2023 5:05 PM EST ----- Regarding: FW: lab work ordered ----- Message ----- From: DAVID Rodriguez Sent: 07/02/2023 3:29 PM EST To: [facility] Comb Setter Subject: lab work ordered I am sending in her thyroid medications but I haven't seen any results on the labs I ordered on hervisit earlier in the month, has she gone to get these done yet? Patient said she had her Thyroid done in Nov and she didn't know she needed it done again. Please advise. * Telephone Encounter - DAVID Rodriguez - 07/03/2023 7:58 AM EST No not her thyroid but the labs I ordered when she was in at her last visit for the work up on her brain fog * Telephone Encounter - Manju Payne CMA - 07/03/2023 7:58 AM EST Patient said that she is feeling better and she is going to wait on having the tests done. documented in this encounter Plan of Treatment Upcoming Encounters Date Type Department Care Team (Late st Contact Info) Description 03/31/2025 8:15 AM EDT Appointment [facility] [address] [place] [address] Lymphedema 04/23/2025 1:15 PM EST Office Visit [facility] [address] [place] [address] Pedro Herrera DO [address] [address] [address] 12/15/2025 3:00 PM EDT Office Visit [facility] [address] [place] [address] documented as of this encounter Visit Diagnoses Not on filedocumented in this encounter Additional Health Concerns Assessment Noted Time PHQ-9 Depression Total Score: 0 06/19/19 24 8:59 AM EST A Body Mass Index follow-up plan has been documented for the patient 04/13/2023 1:20 PM EST documented as of this encounter Care Teams Fabric Coating Supervisor Relationship Specialty Start Date End Date Pedro Herrera DO [address] [place] [address] PCP - General Family Medicine 10/12/20 documented as of this encounter
--- OUTSIDE RECORDS SUMMARY | 2025-03-20 08:53 | XMS_ITS | Encounter Summary ---
Author Organization [facility] s tem Address [facility] [id number] [address] [place] [address] Care Team Providers Care Core Composer Machine Tender Name Role Phone Sharon Pedro Anitra MONROY Primary Care Provider Encounter Details Date Type Department Care Team (Latest Contact Info) Description 03/17/2025 Travel Social History Tobacco Use Types Packs/Day Years Used Date Smoking Tobacco: Never Smokeless Tobacco: Never Alcohol Use Standard Drinks/Week Comments Yes 0 (1 standard drink = 0.6 oz pur e alcohol) Occasional [facility] Utilities Answer Date Recorded In the past 12 months has [employer] electric, gas, oil, or water company threatened [...] week 09/28/2022 How often do you attend [facility] or amish services? More than 4 times per year 09/28/2022 Do you belong to any clubs o r organizations such as yazidi groups, unions, fraternal or athletic groups, or [...] PHQ-2 Answer Date Recorded Total Score 0 12/11/2024 [facility] of Occupat ional Health - Occupational [...] Recorded Do you need help finding a [facility] career center and/or a training program? No 10/10/2023 Hunger Screening Answer Date Recorded Within the past 12 months we worried whether our food would run out before we got money to buy more. Never True 12/11/2024 Within the past 12 months th e food we bought just didn't last and we didn't have money to get more. Never True 12/11/2024 Purpose - Life Answer Date Recorded I [...] Info) Description 03/31/2025 8:15 AM EDT Appointment [facility] [address] [place] [address] Lymphedema 04/23/2025 1:15 PM EST Office Visit [facility] [address] [place] [address] Pedro Herrera DO [address], [place] [address] 12/15/2025 3:00 PM EDT Office Visit [facility] [address] [place] [address] documented as of this encounter Visit Diagnoses Not on filedocumented in this encounter Additional Health Concerns Assessment Noted Time PHQ-9 Depression Total Score: 0 12/12/19 25 1:42 PM EDT A Body Mass Index follow-up plan has been documented for the patient 10/03/2024 1:59 PM EDT documented as of this encounter Care Teams Core Composer Machine Tender Relationship Specialty Start Date End Date Pedro Herrera DO [address] [place] [address] PCP - General Family Medicine 10/12/20 documented as of this encounter
--- OUTSIDE RECORDS SUMMARY | 2025-03-20 08:53 | XMS_ITS | Encounter Summary ---
Author Organization [facility] tem Address [facility] [place]-[id number] [address] [place] [address] Care Team Providers Care Electrical Research Engineer Name Role Phone Pedro Herrera DO Primary Care Provider Encounter Details Date Type Department Care Team (Late st Contact Info) Description 10/17/2016 Documentation [facility] [address] [place] [phone] Zahira Sosa, AUDIO VISUAL AIDS DIRECTOR-DIRECTOR HOME [address] [place] [address] Social History Tobacco Use Types Packs/Day Years Used Date Smoking Tobacco: Never Alcohol Use Standard Drinks/Week Comments No 0 (1 standard drink = 0.6 oz pur e alcohol) Comments Unknown Sex and Gender Information Value [...] [facility] [address] [place] [address] Lymphedema 04/23/2025 1:15 PM EST Office Visit [facility] [address] [place] [phone] Pedro Herrera DO [address] [place] [address] 12/15/2025 3:00 PM EDT Office Visit [facility] [address] [place] [address] documented as of this encounter Visit Diagnoses Not on filedocumented in this encounter Additional Health Concerns Infection Onset Date Last Indicated Resolved Time COVID-19 Positive 09/19/2020 09/19/2020 10/10/2020 11:12 PM EDT documented as of this encounter Care Teams Electrical Research Engineer Relationship Specialty Start Date End Date Pedro Herrera DO [address] [facility] [facility] [place] [address] PCP - General Family Medicine 10/12/20 documented as of this encounter
--- OUTSIDE RECORDS SUMMARY | 2025-03-20 08:53 | XMS_ITS | Clinical Summary ---
Author Organization [facility] Address [id number] [address] [place] [address] Care Team Providers Care Waste Management Engineer Name Role Phone Pedro Herrera DO Primary Care Provider Allergies No known active allergies Medications biotin 10,000 mcg capsule 1 capsule. Active calcium citrate (CALCITRATE) 200 mg (950 mg) tablet Take 1 tablet (200 mg total) by mouth in the morning and 1 tablet (200 mg total) at noon and 1 tablet (200 mg total) before bedtime. Active bvawmvcb-uby-K T-eryokxd-oxbg in (CENTRUM SILVER) 0.4 mg-300 mcg- 250 mcg tablet See Admin Instruction s. Active cholecalcifero l (VITAMIN D3) 250 mcg (10,000 unit) capsule Take 1 capsule (10,000 Units total) by mouth. Active oxybutynin XL (DITROPAN XL) 15 mg 24 hr tablet TAKE 1 TABLET BY MOUTH TWICE DAILY 180 tablet 3 4 Active atorvastatin (LIPITOR) 20 mg tablet Take 1 tablet (20 mg total) by mouth in the morning. 90 tablet 3 4 Active metFORMIN (GLUCOPHAGE) 500 mg tablet TAKE 1 TABLET BY MOUTH ONCE DAILY 90 tablet 3 5 Active levothyroxine (SYNTHROID, LEVOTHROID) 50 MCG tablet TAKE 1 TABLET BY MOUTH IN THE MORNING 90 tablet 5 Active levothyroxine (SYNTHROID, LEVOTHROID) 50 MCG tablet TAKE 1 TABLET BY MOUTH IN THE MORNING 90 tablet 1 5 03/05/20 25 Discontinued Active Problems Problem Noted Date Diagnosed Date Hypocalcemia 04/13/2023 Status post right knee replacement 02/12/2023 Lymphedema 01/11/2023 Localized osteoarthritis of right knee Obesity (BMI 30-39.9) 01/03/2023 Mixed hyperlipidemia 08/25/2021 Osteopenia 02/17/2021 Hypothyroidism 02/01/2021 Osteoarthritis of knee 12/27/2020 Difficulty walking 12/16/2020 Edema of foot 10/17/2020 Persistent insomnia 10/17/2020 Iron deficiency anemia 08/29/2020 Urinary incontinence 08/27/2020 Impaired fasting glucose 08/27/2020 Contracture, right ankle 03/01/2020 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 Arthritis of right knee 08/26/2019 Primary osteoarthritis of left knee 01/17/2018 Obstructive sleep apnea 09/27/2017 Chronic fatigue 06/06/2017 Arthralgia of lower leg 10/23/2016 Sleep disorder 04/25/2016 Vitamin D deficiency 01/20/2016 Insulin resistance 07/21/2015 Peripheral venous insufficiency 07/21/2015 Urge incontinence of urine 07/21/2015 Resolved Problems Problem Noted Date Diagnosed Date Resolved Date Pain in right knee 10/23/2016 Rosacea 07/21/2015 01/17/2024 Encounters Date Type Department Care Team Description 03/17/2025 Travel 03/05/2025 Refill [facility] [address] [place] [address] Pedro Herrera, DO from Last 3 Months Immunizations Immunization Administration Dates Next Due COVID-19, mRNA, LNP-S, PF, 100mcg/0.5mL Dose 07/29/2020,07/28/2020 Hep B / HIB 08/13/2008,11/28/2007 Influenza (IM) Preservative Free 06/22/2017 Influenza High Dose Preserva tive Free IM 03/31/2024 Influenza Vaccine, Quadrival ent, Adjuvanted 04/13/2023,04/03/2022 Influenza, High-dose, Quadrivalent 02/16/2021 Influenza, Im Trivalent Preservative 04/18/2013 Influenza, Injectable, quadr ivalent (PF) 02/21/2021,02/23/2020,04/01/2018,03/11 Influenza, Trivalent, Adjuvanted 04/04/2019,03/06 Influenza, Unspecified 04/03/2022 Pneumococcal Conjugate 13-Valent 02/23/2020 Pneumococcal Polysaccharide 02/23/2020, 9 Td (adult), 5 Lf tetanus tox oid, preservative free, adsorbed 09/22/2013 Zoster Live 07/25/2015 Zoster Vaccine Recombinant 03/03/2018,12/21/2017 Family History Medical History Relation Name Comments No Known Problems Daughter 1 Multiple sclerosis Daughter 2 Alzheimer's disease Father Leukemia Father Pneumonia Father Covid Hodgkin's lymphoma Mother at a ge 34 No Known Problems Sister Relation Name Status Comments Daughter 1 Alive Daughter 2 Alive Father Half Brother 1 Alive Half Brother 2 Alive Mother Sister Alive Social History Tobacco Use Types Packs/Day Years Used Date Smoking Tobacco: Never Smokeless Tobacco: Never Tobacco Cessation:Counseling Given: Not Answered Alcohol Use Standard Drinks/Week Comments Yes 0 (1 standard drink = 0.6 oz pur e alcohol) Occasional [employer] Utilities Answer Date Recorded In the past 12 months has [employer], gas, oil, or water [employer] threatened to shut off services in your [...] How often do you attend chur or restorationism services? More than 4 times per year 09/28/2022 Do you belong to any clubs o r organizations such as hoahaoism groups, unions, fraternal or athletic groups, or [...] Answer Date Recorded Total Score 0 12/11/2024 [facility] of Occupat ional Health - Occupational Stress [...] Recorded Do you need help finding a [facility] career [facility] and/or a training program? [...] on file Sexual Orientation Not on file Last Filed Vital Signs Vital Sign Reading Time Taken Comments Blood Pressure 126/82 12/11/2024 1:35 PM EDT Pulse 58 10/03/2024 10:30 AM EDT Temperature 36.1 C (97 F) 10/03/2024 10:30 AM EDT Respiratory Rate 18 10/03/2024 10:3 0 AM EDT Oxygen Saturation 99% 10/03/2024 10: 30 AM EDT Inhaled Oxygen Concentration - - Weight 85.1 kg (187 lb 11.2 oz) 12/11/2024 1:35 PM EDT Height 157.5 cm (5' 2 ) 12/11/2024 1:35 PM EDT Body Mass Index 34.33 12/11/2024 1:35 PM EDT Plan of Treatment Upcoming Encounters Date Type Department Care Team (Late st Contact Info) Description 03/31/2025 8:15 AM EDT Appointment [facility] [address] [place] [address] Lymphedema 04/23/2025 1:15 PM EST Office Visit [facility] [address] [place] [address] Pedro Herrera, DO [address] [facility] [place] [address] 12/15/2025 3:00 PM EDT Office Visit [facility] [address] [place] [address] Health Maintenance Due Date Last Done Comments DTaP,Tdap and Td Vaccines (2 - Td or Tdap) 09/23/2023 09/22/2013 COVID-19 Vaccine (2024-2 6 season) 2025 01/12/2022, 04/03/2021, 08/25/2020, Additional history exists Influenza Vaccine 2025 03/31/2024, , 04/03/2022, Additional history exists Mammogram 04/02/2025 04/02/2024, 03/06, 03/06/2022, Additional history exists Adult BMI Follow Up Plan 10/03/2025 10/03/2024 Tobacco Screening 10/03/2025 10/03/2024 Adult BMI Screening 12/11/2025 12/11/2024 Depression Screening 12/11/2025 12/11/2024 Fall Risk Screening 12/11/2025 12/11/2024 Medicare Annual Wellness Visit 12/11/2025 0 12/11/2024, 12/11/2023, 09/28/2022 Colonoscopy 10/13/2030 10/13/2020, 05/0 10/2013, 10/06/2013 Zoster (Shingles) Vaccine Completed 2017, 12/21/2017, 07/25/2015 Medical Devices Not on file Procedures Procedure Name Priority Date/Time Associated Diagnosis Comments MAMMOGRAPHY Routine 04/02/2024 11:12 AM EDT COLONOSCOPY Routine 10/13/2020 1:14 PM EDT from Last 3 Months or Most Recently Relevant to Health Maintenance Results * MAMMOGRAPHY (04/02/2024 11:12 AM EDT) Anatomical Region Laterality Modality Other us Not In System Ref Prov HEALTH MAINTENANCE Final Result * COLONOSCOPY (10/13/2020 1:14 PM EDT) us Braulio Nation DO HEALTH MAINTENANCE Final Result MANUALLY TRANSCRIBED RESULTS from Last 3 Months or Most Recently Relevant to Health Maintenance Insurance [employer] MEDICARE Care Teams Waste Management Engineer Relationship Specialty Start Date End Date Pedro Herrera DO [address] [facility], [place] [address] PCP - General Family Medicine 10/12/20
--- OUTSIDE RECORDS SUMMARY | 2025-03-20 08:54 | XMS_ITS | Encounter Summary ---
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 Micheal Trujillo, DO [address] [facility] [address] [place] [address] documented as of this encounter Visit Diagnoses Not on filedocumented in this encounter Care Teams Ethics Manager Relationship Specialty Start Date End Date Pedro Herrera MD PCP - General Family Medicine 02/27/23 03/10/25 Pedro Herrrea MD [address], [place] [address] PCP - General Family Medicine 03/11/25 documented as of this encounter
--- OUTSIDE RECORDS SUMMARY | 2025-03-20 08:54 | XMS_ITS | Encounter Summary ---
Author Organization [facility] [employer] [facility] tem Address [id number] [address] [place] [address] Care Team Providers Care Rawhide Trimmer Name Role Phone Shaorn Pedro Ayoub DO Primary Care Provider [phone] Encounter Details Date Type Department Care Team (Late st Contact Info) Description 04/03/2023 Orders Only [facility] Internal [facility] - Family Medicine [address] [place] [address] External, Scanning Provider Social History Tobacco Use Types Packs/Day Years [...] How often do you attend chur or confucianism services? More than 4 times per year 09/28/2022 Do you belong to any clubs o r organizations such as mandaen groups, unions, fraternal or athletic groups, or [...] PHQ-2 Answer Date Recorded Total Score 0 01/11/2023 [facility] - Occupational Stress [...] Employment Answer Date Recorded Employment Unknown 11/13/2018 Purpose - Life Answer Date Recorded I [...] Description 03/31/2025 8:15 AM EDT Appointment [facility] [address] [place] [address] Lymphedema 04/23/2025 1:15 PM EST Office Visit [facility] - Family Medicine [address] [place] [address] Pedro Herrera DO [address] [facility] [place] [address] 12/15/2025 3:00 PM EDT Office Visit [facility] - Family Medicine [address] [place] [phone] documented as of this encounter Procedures Procedure Name Priority Date/Time Associated Diagnosis Comments MAMMOGRAPHY Routine 04/03/2023 8:13 AM EDT documented in this encounter Results * MAMMOGRAPHY (04/03/2023 8:13 AM EDT) Anatomical Region Laterality Modality Other us Scanning Provider External HEALTH MAINTENANCE Fi nal Result documented in this encounter Visit Diagnoses Not on filedocumented in this encounter Additional Health Concerns Assessment Noted Time PHQ-9 Depression Total Score: 0 01/12/20 23 2:52 PM EDT documented as of this encounter Care Teams Rawhide Trimmer Relationship Specialty Start Date End Date Pedro Herrera DO [address] [facility] [place] [address] PCP - General Family Medicine 10/12/20 documented as of this encounter
--- OUTSIDE RECORDS SUMMARY | 2025-03-20 08:54 | XMS_ITS | Encounter Summary ---
Author Organization [facility] tem Address [id number] [address] [place] [address] Care Team Providers Care Sand Analyst Name Role Phone Pedro Herrera DO Primary Care Provider [phone] Encounter Details Date Type Department Care Team (Late st Contact Info) Description 04/21/2022 [facility] [address] [place] [phone] Vivian Francis MA Social History Tobacco Use Types Packs/Day Years Used Date Smoking Tobacco: Never Smokeless Tobacco: Never Alcohol Use Standard Drinks/Week Comments Yes 0 (1 standard drink = 0.6 oz pur e alcohol) Occasional Childcare Answer Date Recorded Childcare Unknown 11/13/2018 Employment Answer Date Recorded Employment Unknown 11/13/2018 Purpose - Life Answer Date Recorded Purpose and direction in life Unknown Comments No Sex and Gender Information Value Date Recorded Sex Assigned at Not on file Legal Sex Female 11:48 AM EDT Gender Identity Not on file Sexual Orientation Not on file documented as of this encounter Miscellaneous Notes * Telephone Encounter - Vivian Francis MA - 04/21/2022 12:41 PM EST Patient called stating she has a horrible cough and a very slight sore throat. She has been taking cough medicine at night and it has been helping her sleep, but she was wondering if an antibiotic can be sent in or does she need an appt? * Telephone Encounter - Pedro Guerrang, DO - 04/21/2022 12:41 PM EST She needs an appointment * Telephone Encounter - Vivian Francis MA - 04/21/2022 12:41 PM EST Can you please see previous notes and schedule? Thank you! * Telephone Encounter - Janet Gutierrez - 04/21/2022 12:41 PM EST Called patient to schedule her and she ended up going to urgent care documented in this encounter Plan of Treatment Upcoming Encounters Date Type Department Care Team (Late st Contact Info) Description 03/31/2025 8:15 AM EDT Appointment Quinn [facility] [address] [place] [address] Lymphedema 04/23/2025 1:15 PM EST Office Visit [facility] - Family Medicine [address] [place] [address] Pedro Herrera DO [address] [place] [address] 12/15/2025 3:00 PM EDT Office Visit [facility] - Family Medicine [address] [place] [address] documented as of this encounter Visit Diagnoses Not on filedocumented in this encounter Care Teams Sand Analyst Relationship Specialty Start Date End Date Pedro Herrera AnitraDO [address] [place] [address] PCP - General Family Medicine 10/12/20 documented as of this encounter
--- OUTSIDE RECORDS SUMMARY | 2025-03-20 08:54 | XMS_ITS | Encounter Summary ---
Author Organization [facility] Address [address] [facility] [place] [address] Care Team Providers Care Diamond Driller Helper Name Role Phone Pedro Herrera MD Primary Care Provider + [phone] Encounter Details Date Type Department Care Team (Late st Contact Info) Description 03/17/2025 Bamboo flowsheet [facility] [address] [place] [address] Jr. 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 Micheal Trujillo, DO [address] [place] [address] documented as of this encounter Visit Diagnoses Not on filedocumented in this encounter Care Teams Diamond Driller Helper Relationship Specialty Start Date End Date Pedro Herrera MD [address] [place] [address] PCP - General Family Medicine 03/11/25 documented as of this encounter
--- OUTSIDE RECORDS SUMMARY | 2025-03-20 08:54 | XMS_ITS | Encounter Summary ---
Author Organization [facility] Address [facility] [id number] [address] [place] [address] Care Team Providers Care Patternmaker Hand Name Role Phone Pedro Herrera DO Primary Care Provider Encounter Details Date Type Department Care Team (Late st Contact Info) Description 11/28/2023 [facility] [address] [place] [phone] Erin Johnson CMA Social History Tobacco Use Types Packs/Day Years Used Date Smoking Tobacco: Never Smokeless Tobacco: Never Alcohol Use Standard Drinks/Week Comments Yes 0 (1 standard drink = 0.6 oz pur e alcohol) Occasional [facility] Utilities Answer Date Recorded In the past [...] often do you attend chur ch or restoration services? More than 4 times per year [...] PHQ-2 Answer Date Recorded Total Score 0 10/10/2023 [facility] Occupat ional Health - Occupational Stress [...] Recorded Do you need help finding a l ocal career center and/or a training program? No 10/10/2023 Hunger Screening Answer Date Recorded Within the past 12 months we worried whether our food would run out before we got money to buy more. Never True 10/10/2023 Within the past 12 months th e food we bought just didn't last and we didn't have money to get more. Never True 10/10/2023 Purpose - Life Answer Date Recorded I have a purpose and direction in my life. Stron gly Agree 09/28/2022 Comments No Sex and Gender Information Value Date Recorded Sex Assigned at Not on file Legal Sex Female 11:48 AM EDT Gender Identity Not on file Sexual Orientation Not on file documented as of this encounter Miscellaneous Notes * Telephone Encounter - Erin Johnson CMA - 11/28/2023 1:18 PM EDT ----- Message from Dr. Pedro Herrera DO sent at 11/28/2023 11:43 AM EDT ----- Her DEXA scan showed osteopenia again in both hips but she is still a low fracture risk with an 8.5% risk of any fracture and 0.8% risk of hip fracture in the next 10 years. Continue calcium and vitamin-D supplementation. Recheck in 2- 3 years documented in this encounter Plan of Treatment Upcoming Encounters Date Type Department Care Team (Late st Contact Info) Description 03/31/2025 8:15 AM EDT Appointment Quinn [facility] [address] [place] [address] Lymphedema 04/23/2025 1:15 PM EST Office Visit [facility] - Family Medicine [address] [place] [address] Pedro Herrera DO [address] [facility] [place] [address] 12/15/2025 3:00 PM EDT Office Visit [facility] - Family Medicine [address] [place] [address] documented as of this encounter Visit Diagnoses Not on filedocumented in this encounter Additional Health Concerns Assessment Noted Time PHQ-9 Depression Total Score: 0 10/10/19 24 11:07 AM EDT A Body Mass Index follow-up plan has been documented for the patient 04/13/2023 1:20 PM EST documented as of this encounter Care Teams Patternmaker Hand Relationship Specialty Start Date End Date Pedro Herrera DO [address] [facility], [place] [address] PCP - General Family Medicine 10/12/20 documented as of this encounter
--- OUTSIDE RECORDS SUMMARY | 2025-03-20 08:54 | XMS_ITS | Encounter Summary ---
Author Organization [facility] Sys tem Address [id number] [address] [place] [address] Care Team Providers Care Appliance Repair Technician Name Role Phone SharonPedro Anitra MONROY Primary Care Provider Encounter Details Date Type Department Care Team (Late st Contact Info) Description 04/02/2024 Orders Only [facility] - Family Medicine [address] [place] [address] Ref Prov, [place] [address] Social History Tobacco Use Types Packs/Day Years Used Date Smoking Tobacco: Never Smokeless Tobacco: Never Alcohol Use Standard Drinks/Week Comments Yes 0 (1 standard drink = 0.6 oz pur e alcohol) Occasional [facility] Utilities Answer Date Recorded In the [...] often do you attend chur ch or shinto services? More than 4 times per year [...] PHQ-2 Answer Date Recorded Total Score 0 01/17/2024 [facility] of Occupat ional Health - Occupational [...] Do you need help finding a l al career center and/or a training program? No 10/10/2023 Hunger Screening Answer Date Recorded Within the past 12 months we worried whether our food would run out before we got money to buy more. Never True 01/17/2024 Within the past 12 months th e food we bought just didn't last and we didn't have money to get more. Never True 01/17/2024 Purpose - Life Answer Date Recorded I [...] Info) Description 03/31/2025 8:15 AM EDT [facility] [address] [place] [address] Lymphedema 04/23/2025 1:15 PM EST Office Visit [facility] - Family Medicine [address] [place] [address] Pedro Herrera DO [address] [facility] [place] [address] 12/15/2025 3:00 PM EDT [facility] [address] [place] [address] documented as of this encounter Procedures Procedure Name Priority Date/Time Associated Diagnosis Comments MAMMOGRAPHY Routine 04/02/2024 11:12 AM EDT documented in this encounter Results * MAMMOGRAPHY (04/02/2024 11:12 AM EDT) Anatomical Region Laterality Modality Other us Not In System Ref Prov HEALTH MAINTENANCE Final Result documented in this encounter Visit Diagnoses Not on filedocumented in this encounter Additional Health Concerns Assessment Noted Time PHQ-9 Depression Total Score: 0 01/17/20 24 1:23 PM EDT A Body Mass Index follow-up plan has been documented for the patient 04/13/2023 1:20 PM EST documented as of this encounter Care Teams Appliance Repair Technician Relationship Specialty Start Date End Date Pedro Herrera DO [address] [facility], [place] [address] PCP - General Family Medicine 10/12/20 documented as of this encounter
--- OUTSIDE RECORDS SUMMARY | 2025-03-20 08:54 | XMS_ITS | Encounter Summary ---
Author Organization [facility] [employer] Address [facility] [id number] [address] [place] [address] Care Team Providers Care Stencil Cutter Name Role Phone Pedro Herrera DO Primary Care Provider Encounter Details Date Type Department Care Team (Late st Contact Info) Description 06/06/2022 Refill [facility] - Family Medicine [address] [place] [phone] Margo Marti CMA Social History Tobacco Use Types Packs/Day [...] encounter Miscellaneous Notes * Telephone Encounter - Margo Marti CMA - 06/06/2022 4:45 PM EST Refills please documented in this encounter Plan of Treatment Upcoming Encounters Date Type Department Care Team (Late st Contact Info) Description 03/31/2025 8:15 AM EDT Appointment Quinn [facility] [address] [place] [address] Lymphedema 04/23/2025 1:15 PM EST Office Visit [facility] - Family Medicine [address] [place] [address] Pedro Herrera DO [address], [place] [address] 12/15/2025 3:00 PM EDT Office Visit [facility] - Family Medicine [address] [place] [address] documented as of this encounter Visit Diagnoses Not on filedocumented in this encounter Care Teams Stencil Cutter Relationship Specialty Start Date End Date Pedro Herrera DO [address] [place] [address] PCP - General Family Medicine 10/12/20 documented as of this encounter
--- OUTSIDE RECORDS SUMMARY | 2025-03-20 08:54 | XMS_ITS | Clinical Summary ---
Author Organization [facility] Address [address] [place] [address] Care Team Providers Care Ampoule Washing Machine Operator Name Role Phone Pedro Herrera MD Primary Care Provider + [phone] Allergies No known active allergies Medications metFORMIN (Glucophage) 500 MG tablet 3 Active oxybutynin XL (Ditropan-XL) 15 MG 24 hr tablet 1 (one) time each day at the same time. Active multivitamin-ir si-vmnbfzrm-nbb ic acid (Centrum Silver, geriatric,) tablet as directed Orally Active biotin 04147 MCG tablet 1 capsule 1 (one) time each day at the same time. Active atorvastatin (Lipitor) 10 MG tablet Take 1 tablet by mouth in the morning. 3 Active levothyroxine (Synthroid, Levoxyl) 50 MCG tablet Take 50 mcg by mouth in the morning. 2 Active aspirin 81 MG EC tablet Take 81 mg by mouth in the morning. Active Calcium Carbonate (CALCIUM 600 PO) Take by mouth. Activ e cholecalciferol (Vitamin D-3) 350 MCG (40916 UT) capsule Take 14,000 Units by mouth in the morning. Active ferrous sulfate 325 (65 Fe) MG tablet Take 325 mg by mouth in the morning. Take with meals. 3 Active amoxicillin (Amoxil) 500 MG tabletIndicatio ns:S/P total knee arthroplasty, right 4 tabs PO once 30-60 mins before procedure with food 4 tablet 3 5 Active Active Problems Problem Noted Date Diagnosed Date Status post right knee replacement 02/12/2023 Obesity (BMI 30-39.9) 01/03/2023 Unilateral primary osteoarthritis, right knee Persistent disorder of initiating or maintaining sleep 01/03/2023 Prediabetes 01/03/2023 Mixed hyperlipidemia 08/25/2021 Osteopenia 02/17/2021 Hypothyroidism 02/01/2021 Osteoarthritis of knee 12/27/2020 Difficulty walking 12/16/2020 Edema of foot 10/17/2020 Insomnia 10/17/2020 Iron deficiency anemia 08/29/2020 Impaired fasting glucose 08/27/2020 Urinary incontinence 08/27/2020 Contracture, right ankle 03/01/2020 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 Arthritis of right knee 08/26/2019 detention current use of insulin 03/12/2019 Osteoarthritis of left knee 01/17/2018 Obstructive sleep apnea 09/27/2017 Chronic fatigue 06/06/2017 Chronic fatigue syndrome 06/06/2017 Arthralgia of lower leg 10/23/2016 Pain in right knee 10/23/2016 Vitamin D deficiency 01/20/2016 Insulin resistance 07/21/2015 Chronic diastolic heart failure 07/21/2015 Peripheral venous insufficiency 07/21/2015 Rosacea 07/21/2015 Urge incontinence of urine 07/21/2015 Encounters Date Type Department Care Team Description 03/17/2025 8:55 AM EDT Ancillary Procedure [facility] [place] [phone] Arrived 03/17/2025 8:30 AM EDT Office Visit [facility] [place] [phone] Jr. Micheal Trujillo, Acute pain of right knee; Lymphedema 03/17/2025 Bamboo flowsheet [facility] [place] [phone] Jr. Micheal Trujillo, DO 03/17/2025 Travel 02/12/2025 Telephone [facility] [address] [facility] [address] [place] [address] Jr. Micheal Trujillo, DO dental appointment from Last 3 Months Immunizations Immunization Administration Dates Next Due Hib / Hep B 08/13/2008,11/28/2007 Influenza, High-dose Seasona l, Quadrivalent, Preservative Free 02/16/2021 Influenza, Unspecified 04/03/2022 Influenza, injectable, quadr ivalent, preservative free 02/21/2021,02/23/2020,04/01/2018,03/11 Influenza, seasonal, injectable 04/18/2013 Influenza, seasonal, injecta ble, preservative free 06/22/2017 Influenza, trivalent, adjuvanted 04/04/2019,03/06 Moderna SARS-CoV-2 Vaccination 07/28/2020 Pneumococcal Conjugate PCV 13 02/23/2020 Pneumococcal Polysaccharide PPSV23 02/23/2020, Td (adult), 5 Lf tetanus tox oid, preservative free, adsorbed 09/22/2013 Zoster, Recombinant 03/03/2018,12/21/2017 Zoster, live 07/25/2015 Family History Medical History Relation Name Comments No Known Problems Brother 2 brothers No Known Problems Daughter 2 daughter s Cancer Father blood Cancer Mother No Known Problems Sister Relation Name Status Comments Brother Daughter Alive Father Alive Mother (Age 37) Sister Social History Tobacco Use Types Packs/Day Years [...] Industry 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 Micheal Trujillo, DO [address] [facility] [address] [place] [address] Health Maintenance Due Date Last Done Comments CT Colonography 1955 FIT-DNA 1955 Sigmoidoscopy 1955 Mammogram 01/19/2021 01/20/2020, 12/02, 12/18/2018, Additional history exists FIT 07/19/2023 07/19/2022, 07/19/2022 FOBT 07/19/2023 07/19/2022 Colonoscopy 10/07/2023 10/06/2013 Colorectal Cancer Screening 10/07/2023 Influenza Vaccine (#1) 2025 , 04/13/2023, 04/03/2022, Additional history exists Pneumococcal Vaccine: 65+ Years Completed 02/23/2020, 02/23/2020, 04/04/2019 Procedures Procedure Name Priority Date/Time Associated Diagnosis Comments XR KNEE 1-2 VIEWS RIGHT Routine 03/17/2025 8:50 AM EDT Acute pain of right knee BI MAMMOGRAM SCREENING TOMOSYNTHESIS BILATERAL Routine 01/20/2020 COLONOSCOPY Routine 10/06/2013 12:00 PM EDT from Last 3 Months or Most Recently Relevant to Health Maintenance Results * XR knee 1 or 2 views right (03/17/2025 8:50 AM EDT) Anatomical Region Laterality Modality Lower Extremities, Knee Right [facility] N[facility]ative 03/17/2025 9:02 AM EDT Imaging [...] dislocation. Impression: Unremarkable right total knee arthroplasty. Jr. Micheal Trujillo DO IMG XR PROCEDURES Final Result * Bilateral screening mammogram with tomosynthesis (01/20/2020) Anatomical Region Laterality Modality Breast Bilateral Mammography Narrative 01/20/2020 12:00 AM EDT PERFORMED AT [facility] LOCATION:[place] [address] Patient: AMPARO Campbell Exam Date: 01/20/2020 : 1955 Gender:F Ordering : DR ERNST PINTO . Admission #: [id number] Family : Order #: [id number] CLICK HERE TO VIEW EXAM RADIOLOGY REPORT PROCEDURE: MAMMOGRAM BILATERAL SCREENING DIGITAL WITH COMPUTER AIDED DETECTION COMPARISON: MG MAMM SCREEN AMANDA W CAD 12/18/2018. INDICATIONS: Screening mammography Calculator Name NCI Breast Cancer Risk Assessment Tool 5 Year Breast Cancer Risk 3.50% Lifetime Breast Cancer Risk 12.70% Personal Breast Cancer No Personal Ovarian Cancer No Treatments None Family Cancers Mother with hodgkins cancer at age 34. LOCATION: [facility] BREAST COMPOSITION: Heterogeneously dense which may obscure small masses. FINDINGS: DIAGNOSTIC CATEGORY 2--BENIGN FINDING NO CHANGE FROM COMPARISON ASSESSMENT. Bilateral round mole markers. Left linear scar marker. Scattered benign-appearing nodules are present. Scattered benign-appearing calcifications are present. Scattered benign-appearing lymph nodes are present. LEFT BREAST: No significant suspicious finding. RECOMMENDATIONS: ROUTINE MAMMOGRAM AND CLINICAL EVALUATION IN 12 MONTHS. PLEASE NOTE: A NORMAL MAMMOGRAM DOES NOT EXCLUDE THE POSSIBILITY OF BREAST CANCER. A CLINICALLY SUSPICIOUS PALPABLE LUMP SHOULD BE BIOPSIED. Dictated by: Elio Michael MD on 01/20/2020 at 11:14 Approved by: Elio Michael MD on 01/20/2020 at 11:27 Procedure Note CONVERSION, GENERIC - 12/08/2022 PERFORMED AT [facility] LOCATION:[place] [address] Patient: AMPARO Ambrose. Exam Date: 01/20/2020 : 1955 Gender:F Ordering : DR ERNST PINTO . Admission #: [id number] Family : Order #: [id number] CLICK HERE TO VIEW EXAM RADIOLOGY REPORT PROCEDURE: MAMMOGRAM BILATERAL SCREENING DIGITAL WITH COMPUTER AIDED DETECTION COMPARISON: MG MAMM SCREEN AMANDA W CAD 12/18/2018. INDICATIONS: Screening mammography Calculator Name NCI Breast Cancer Risk Assessment Tool 5 Year Breast Cancer Risk 3.50% Lifetime Breast Cancer Risk 12.70% Personal Breast Cancer No Personal Ovarian Cancer No Treatments None Family Cancers Mother with hodgkins cancer at age 34. LOCATION: [facility] BREAST COMPOSITION: Heterogeneously dense which may obscure small masses. FINDINGS: DIAGNOSTIC CATEGORY 2--BENIGN FINDING NO CHANGE FROM COMPARISONASSESSMENT. Bilateral round mole markers. Left linear scar marker. Scattered benign-appearing nodules are present. Scattered benign-appearing calcifications are present. Scattered benign-appearing lymph nodes are present. LEFT BREAST: No significant suspicious finding. RECOMMENDATIONS: ROUTINE MAMMOGRAM AND CLINICAL EVALUATION IN 12 MONTHS. PLEASE NOTE: A NORMAL MAMMOGRAM DOES NOT EXCLUDE THE POSSIBILITY OFBREAST CANCER. A CLINICALLY SUSPICIOUS PALPABLE LUMP SHOULD BE BIOPSIED. Dictated by: Elio Michael MD on 01/20/2020 at 11:14 Approved by: Elio Michael MD on 01/20/2020 at 11:27 us Ernst Pinto MD IMG BI PROCEDURES Final Resu lt * Colonoscopy (10/06/2013 12:00 PM EDT) Anatomical Region Laterality Modality Endoscopy 10/06/2013 12:0 0 PM EDT Narrative 10/06/2013 12:00 PM EDT PERFORMED AT [facility] LOCATION:[id number] Negative Procedure Note CONVERSION, GENERIC - 10/19/2022 PERFORMED AT [facility] LOCATION:[id number] Negative us Ernst Pinto MD ENDOSCOPY PROCEDURE ORDERABL ES Final Result from Last 3 Months or Most Recently Relevant to Health Maintenance Insurance ([address] [id number] [employer] MEDICARE Care Teams Ampoule Washing Machine Operator Relationship Specialty Start Date End Date Pedro Herrera MD [address] [facility], [place] [address] PCP - General Family Medicine 03/11/25
--- OUTSIDE RECORDS SUMMARY | 2025-03-20 08:54 | XMS_ITS | Encounter Summary ---
Author Organization [facility] Address [id number] [place] [address] Care Team Providers Care Worker'S Compensation Claims Examiner Name Role Phone Pedro Herrera DO Primary Care Provider [phone] Encounter Details Date Type Department Care Team (Late st Contact Info) Description 04/13/2023 Orders Only [facility] [address] [place] [address] Pedro Herrera DO [address], [place] [address] Social History Tobacco Use Types Packs/Day Years [...] often do you attend chur ch or adventist services? More than 4 times per year 09/28/2022 Do you belong to any clubs o r organizations such as religious groups, unions, fraternal or athletic groups, or [...] PHQ-2 Answer Date Recorded Total Score 0 04/13/2023 [facility] Occupat ional [facility] - Occupational Stress [...] got money to buy more. Never True 04/13/2023 Within the past 12 months th e food we bought just didn't last and we didn't have money to get more. Never True 04/13/2023 Purpose - Life Answer Date Recorded I [...] Info) Description 03/31/2025 8:15 AM EDT Appointment [facility] [address] [place] [address] Lymphedema 04/23/2025 1:15 PM EST Office Visit [facility] [address] [place] [address] Pedro Herrera DO [address], [place] [address] 12/15/2025 3:00 PM EDT Office Visit [facility] [address] [place] [address] documented as of this encounter Procedures Procedure Name Priority Date/Time Associated Diagnosis Comments HM DEXA SCAN Routine 09/22/2021 2:27 PM EDT documented in this encounter Results * HM DEXA SCAN (09/22/2021 2:27 PM EDT) Anatomical Region Laterality Modality Other us Pedro Herrera DO HEALTH MAINTENANCE Final Res ult documented in this encounter Visit Diagnoses Not on filedocumented in this encounter Additional Health Concerns Assessment Noted Time PHQ-9 Depression Total Score: 0 04/13/20 23 11:07 AM EST A Body Mass Index follow-up plan has been documented for the patient 04/13/2023 1:20 PM EST documented as of this encounter Care Teams Worker'S Compensation Claims Examiner Relationship Specialty Start Date End Date Pedro Herrera DO [address], [place] [address] PCP - General Family Medicine 10/12/20 documented as of this encounter
--- OUTSIDE RECORDS SUMMARY | 2025-03-20 08:54 | XMS_ITS | Encounter Summary ---
Author Organization [facility] Address [id number] [address] [place] [address] Care Team Providers Care Pipeline Construction Inspector Name Role Phone Sharon Pedro Ayoub DO Primary Care Provider Encounter Details Date Type Department Care Team (Late st Contact Info) Description 11/28/2023 Orders Only [facility] [address] [place] [address] Erin Johnson CMA Osteopenia, unspecified location; Asymptomatic postmenopausal state Social History Tobacco Use Types Packs/Day Years Used Date Smoking Tobacco: Never Smokeless Tobacco: Never Alcohol Use Standard Drinks/Week Comments Yes 0 (1 standard drink = 0.6 oz pur e alcohol) Occasional C Utilities Answer Date Recorded In the past 12 months has [employer] electric, gas, oil, or water company threatened [...] often do you attend chur ch or anabaptist services? More than 4 times per year 09/28/2022 Do you belong to any clubs o r organizations such as sabianism groups, unions, fraternal or athletic groups, or [...] Answer Date Recorded Total Score 0 10/10/2023 [facility] - Occupational Stress Questionnaire Answer Date Recorded [...] Recorded Do you need help finding a [facility] career center and/or a training program? No [...] [facility] [address] [place] [address] Lymphedema 04/23/2025 1:15 PM EST Office Visit [facility] [address] [place] [address] Pedro Herrera DO [address] [place] [address] 12/15/2025 3:00 PM EDT Office Visit [facility] [address] [place] [address] documented as of this encounter Procedures Procedure Name Priority Date/Time Associated Diagnosis Comments DEXA SCAN CENTRAL SKELETAL Routine 11/26/2023 Osteopenia, unspecified location Asymptomatic postmenopausal state documented in this encounter Results * Dexa scan central skeletal (11/26/2023) Anatomical Region Laterality Modality N/A Radiographic Karen ging 11/26/2023 Pedro Herrera DO IMG DXA ORDERABLES Final Res ult documented in this encounter Visit Diagnoses Diagnosis Osteopenia, unspecified location Asymptomatic postmenopausal state Lymphedema Other noninfectious lymphedema documented in this encounter Additional Health Concerns Assessment Noted Time PHQ-9 Depression Total Score: 0 05/08/20 24 11:07 AM EDT A Body Mass Index follow-up plan has been documented for the patient 04/13/2023 1:20 PM EST documented as of this encounter Care Teams Pipeline Construction Inspector Relationship Specialty Start Date End Date Pedro Herrera DO [address] [facility], [place] [address] PCP - General Family Medicine 10/12/20 documented as of this encounter
--- OUTSIDE RECORDS SUMMARY | 2025-03-20 08:54 | XMS_ITS | Encounter Summary ---
Author Organization [facility] Address [id number] [address] [place] [address] Care Team Providers Care Industrial Maintenance Technician Name Role Phone LynettePedro falcon Primary Care Provider [phone] Encounter Details Date Type Department Care Team (Late st Contact Info) Description 04/03/2022 Orders Only [facility] [address] [place] [address] External, Scanning Provider Social History Tobacco Use [...] on file Sexual Orientation Not on file COVID-19 Exposure Response Date Recorded In the last month, have you been in contact with someone who was confirmed or suspected to have Coronavirus / COVID-19? No / Unsure 03/20/2022 10:05 AM EDT documented as of this encounter Plan of Treatment Upcoming Encounters Date Type Department Care Team (Late st Contact Info) Description 03/31/2025 8:15 AM EDT Appointment [facility] [address] [place] [address] Lymphedema 04/23/2025 1:15 PM EST Office Visit [facility] [address] [place] [address] Pedro Herrera DO [address], [place] [address] 12/15/2025 3:00 PM EDT Office Visit [facility] [address] [place] [address] documented as of this encounter Procedures Procedure Name Priority Date/Time Associated Diagnosis Comments PAP SMEAR Routine 01/19/2022 documented in this encounter Results * Pap Smear (01/19/2022) 01/19/2022 us Scanning Provider External PATHOLOGY/CYTOLOGY OR DERABLES Final Result MANUALLY TRANSCRIBED RESULTS documented in this encounter Visit Diagnoses Not on filedocumented in this encounter Care Teams Industrial Maintenance Technician Relationship Specialty Start Date End Date Pedro Herrera DO [address] [place] [address] PCP - General Family Medicine 10/12/20 documented as of this encounter
--- OUTSIDE RECORDS SUMMARY | 2025-03-20 08:54 | XMS_ITS | Encounter Summary ---
Author Organization [facility] tem Address [id number] [address] [place] [address] Care Team Providers Care Case Coordinator Name Role Phone Pedro Herrera DO Primary Care Provider [phone] Encounter Details Date Type Department Care Team (Late st Contact Info) Description 11/28/2023 Orders Only [facility] [address] [place] [address] Pedro Herrera DO [address], [place] [address] Social History Tobacco Use Types Packs/Day Years Used Date Smoking Tobacco: Never Smokeless Tobacco: Never Alcohol Use Standard Drinks/Week Comments Yes 0 (1 standard drink = 0.6 oz pur e alcohol) Occasional [facility] Utilities Answer Date Recorded In the past 12 months has [employer], gas, oil, or water [employer] threatened to shut off services in your [...] often do you attend chur ch or yazidi services? More than 4 times per year 09/28/2022 Do you belong to any clubs o r organizations such as jew groups, unions, fraternal or athletic groups, or [...] Answer Date Recorded Total Score 0 10/10/2023 [facility] Occupat ional Health - Occupational [...] Recorded Do you need help finding a [facility] career center and/or a training program? No [...] [facility] [address] [place] [address] Lymphedema 04/23/2025 1:15 PM EST Office Visit [facility] [address] [place] [address] Pedro Herrera, DO [address] [facility] [place] [address] 12/15/2025 3:00 PM EDT Office Visit [facility] [address] [place] [address] documented as of this encounter Procedures Procedure Name Priority Date/Time Associated Diagnosis Comments HM DEXA SCAN Routine 11/26/2023 8:58 AM EDT documented in this encounter Results * HM DEXA SCAN (11/26/2023 8:58 AM EDT) Anatomical Region Laterality Modality Other us Pedro Herrera DO HEALTH MAINTENANCE Final Res ult documented in this encounter Visit Diagnoses Not on filedocumented in this encounter Additional Health Concerns Assessment Noted Time PHQ-9 Depression Total Score: 0 10/10/19 11:07 AM EDT A Body Mass Index follow-up plan has been documented for the patient 04/13/2023 1:20 PM EST documented as of this encounter Care Teams Case Coordinator Relationship Specialty Start Date End Date Pedro Herrera DO [address] [place] [address] PCP - General Family Medicine 10/12/20 documented as of this encounter
--- OUTSIDE RECORDS SUMMARY | 2025-03-20 08:54 | XMS_ITS | Clinical Summary ---
Author Organization [facility] Address [address] [place] [address] Phone Care Team Providers Care Credit Collections Clerk Name Role Phone Unavailable Primary Care Provider Unavailabl e Social History Tobacco Use Types Packs/Day Years Used Date Smoking Tobacco: Never Assessed Comments Unknown Sex and Gender Information Value Date Recorded Sex Assigned at Not on file Legal Sex Female 3:54 AM EST Gender Identity Not on file Sexual Orientation Not on file Plan of Treatment Not on file
--- OUTSIDE RECORDS SUMMARY | 2025-03-20 08:54 | XMS_ITS | Encounter Summary ---
Author Organization [facility] Address [id number] [address] [place] [address] Care Team Providers Care Tourist Home Keeper Name Role Phone Pedro Herrera DO Primary Care Provider [phone] Encounter Details Date Type Department Care Team (Late st Contact Info) Description 01/20/2024 Orders Only [facility] [address] [place] [address] Pedro Herrera DO [address], [place] [address] Social History Tobacco Use Types Packs/Day Years Used Date Smoking Tobacco: Never Smokeless Tobacco: Never Alcohol Use Standard Drinks/Week Comments Yes 0 (1 standard drink = 0.6 oz pur e alcohol) Occasional [facility] Utilities Answer Date Recorded In the past 12 months has [employer], gas, oil, or water [employer] threatened to shut off services in your [...] any clubs o r organizations such as islam groups, unions, fraternal or athletic groups, or [...] Answer Date Recorded Total Score 0 01/17/2024 [facility] Occupat ional Health - Occupational [...] Recorded Do you need help finding a [facility] career center and/or a training [...] [facility] [address] [place] [address] Lymphedema 04/23/2025 1:15 PM EST Office Visit [facility] [address] [place] [address] Pedro Herrera DO [address], [place] [address] 12/15/2025 3:00 PM EDT Office Visit [facility] [address] [place] [address] documented as of this encounter Visit Diagnoses Not on filedocumented in this encounter Additional Health Concerns Assessment Noted Time PHQ-9 Depression Total Score: 0 01/17/20 24 1:23 PM EDT A Body Mass Index follow-up plan has been documented for the patient 04/13/2023 1:20 PM EST documented as of this encounter Care Teams Tourist Home Keeper Relationship Specialty Start Date End Date Pedro Herrera DO [address], [place] [address] PCP - General Family Medicine 10/12/20 documented as of this encounter
--- OUTSIDE RECORDS SUMMARY | 2025-03-20 08:54 | XMS_ITS | Encounter Summary ---
Author Organization [facility] Address [address] [place] [address] Care Team Providers Care Account Executive Healthcare Name Role Phone Pedro Herrera DO Primary Care Provider Gabo Pearce MD Unavailable [phone] Source Comments In the event this information is protected by the Federal Confidentiality of Alcohol and Drug AbusePatient Records regulations: The Federal rules restrict any use of the information to criminally investigate or prosecute any alcohol or drug abuse patient.[facility] Encounter Details Date Type Department Care Team (Latest Contact Info) Description 06/19/2022 H&P External-NonCCF Provider, External, PA-C Do not enter address information under generic External Provider. Social History Tobacco Use Types Packs/Day Years Used Date Smoking Tobacco: Never Assessed Area Deprivation Index Answer Date Fritz rded National Score (1-100), lower number is lower ri sk 56 06/22/2022 State Score (1-10), lower number is lower risk N ot on file 06/22/2022 Data from: https://www.neighborhoodatlas.medicine.[facility].edu/. Last address used for calculation [address] [place] [address] 06/22/2022 Comments Unknown Sex and Gender Information Value Date Recorded Sex Assigned at Not on file Legal Sex Female 11:04 AM EST Gender Identity Not on file Sexual Orientation Not on file documented as of this encounter Plan of Treatment Upcoming Encounters Date Type Department Care Team (Latest Contact Info) Description 04/20/2025 9:00 AM EST Visit (SP) Office Hematology/Oncology [address] [place] [address] [place] [address] Soraya Madison APRN.BELTING CUTTER [address] [place] [address] 3 month follow up after lab 04/20/2025 9:30 AM EST Infusion Center Hematology/Oncology [address] [facility] [place] [address] 3 month follow up after lab documented as of this encounter Visit Diagnoses Not on filedocumented in this encounter Care Teams Account Executive Healthcare Relationship Specialty Start Date End Date Pedro Herrera DO [address] [facility] [place] [address] PCP - General Family Medicine 06/16/22 Gabo Pearce MD [address] [place] [address] Family Medicine 06/21/22 documented as of this encounter
--- OUTSIDE RECORDS SUMMARY | 2025-03-20 08:54 | XMS_ITS | Clinical Summary ---
Author Organization [facility] Address [address] [place] [address] Care Team Providers Care Bartender Name Role Phone Pedro Herrera DO Primary Care Provider Gabo Pearce MD Unavailable [phone] Allergies No known active allergies Medications atorvastatin (LIPITOR) 10 mg tablet 06/06/2022 Active Biotin 10,000 mcg cap 1 capsule. Active calcium citrate (CALCITRATE) 200 mg (950 mg) tab Acti ve Cholecalciferol, Vitamin D3, 250 mcg (10,000 unit) cap Take by mouth. Takes 14,000units daily Active SYNTHROID 50 mcg tablet 05/06/2022 Active metFORMIN (GLUCOPHAGE) 500 mg tablet 06/06/2022 Active MV with Knq-Wwgpqeqd-Dqz ein (CENTRUM SILVER) 0.4 mg-300 mcg- 250 mcg tab See Admin Instruction s. Active oxybutynin ER (DITROPAN XL) 15 mg 24 hr Extended Rel Tab 05/06/2022 Ac tive Active Problems Problem Noted Date Diagnosed Date Iron (Fe) deficiency anemia 05/19/2024 Encounters Date Type Department Care Team Description 02/23/2025 [place] [address] Suzie Delgadillo PA-C Patient Question 01/12/2025 9:00 AM EDT Infusion Center Hematology/Oncology [facility] [place] [address] Iron deficiency anemia, unspecified iron deficiency anemia type (Primary Dx) 01/05/2025 9:40 AM EDT Infusion Center Hematology/Oncology [facility] [place] [address] Brianna, Chair 4 Iron deficiency anemia, unspecified iron deficiency anemia type (Primary Dx) 12/29/2024 9:40 AM EDT [facility] Hematology/Oncology [address] [place] [address] [place] [address] Brianna, Chair 4 Iron deficiency anemia, unspecified iron deficiency anemia type (Primary Dx) 12/22/2024 8:30 AM EDT Visit (SP) Office Hematology/Oncology [address] [place] [address] [place] [address] Suzie Delgadillo PA-C Iron deficiency anemia, unspecified iron deficiency anemia type (Primary Dx) 12/22/2024 Telephone Cancer Appts [address] [place] [address] Suzie Delgadillo PA-C Future Appointment 12/22/2024 Travel from Last 3 Months Immunizations Immunization Administration Dates Next Due Haemophilus influenzae b-hep atitis B (Hib-HepB) vaccine (COMVAX) 08/13/2008,11/28/2007 influenza (HD-IIV3) vaccine, age 65+ yr, high dose, trivalent, PF (FLUZONE HIGH-DOSE) 03/31/2024 influenza (HD-IIV4) vaccine, age 65+ yr, high dose, quadrivalent, PF (FLUZONE HIGH-DOSE) 02/16/2021 influenza (IIV3) vaccine, tr ivalent (AFLURIA, FLULAVAL, FLUVIRIN, FLUZONE) 04/18/2013 influenza (IIV3) vaccine, tr ivalent, PF (AFLURIA, FLUARIX, FLULAVAL, FLUVIRIN, FLUZONE) 06/22/2017 influenza (IIV4) vaccine, ag e 6 mo - 64 yr, quadrivalent, PF (AFLURIA, FLUARIX, FLULAVAL, FLUZONE) 02/21/2021,02/23/2020,04/01/2018,03/11 influenza (aIIV3) vaccine, a ge 65+ yr, trivalent, PF (FLUAD) 04/04/2019,04/03/2019 influenza (aIIV4) vaccine, a ge 65+ yr, quadrivalent, PF (FLUAD QUAD) 04/13/2023,04/03/2022 pneumococcal conjugate (PCV1 3) vaccine, 13 valent (PREVNAR 13) 02/23/2020 pneumococcal polysaccharide (PPV23) vaccine, 23 valent (PNEUMOVAX 23) 02/23/2020,04/04/2019 tetanus diphtheria (Td) vacc ine, age 7+ yr, 5 Lf tetanus, PF (TENIVAC) 09/22/2013 zoster (RZV) vaccine, recomb inant (SHINGRIX) 03/03/2018,12/21/2017 zoster (ZVL) vaccine, live (ZOSTAVAX) 07/25/2015 Family History Medical History Relation Comments Leukemia Father Hodgkin Lymphoma Mother Relation Status Comments Father Mother Social History Tobacco Use Types Packs/Day Years Used Date Smoking Tobacco: Never Passive Smoke Exposure: Never Smokeless Tobacco: Never Tobacco Cessation:Counseling Given: Not Answered Alcohol Use Standard Drinks/Week Comments Yes 0 (1 standard drink = 0.6 oz pur e alcohol) occasional PHQ-2 Answer Date Recorded PHQ-2 score 0 09/17/2024 Area Deprivation Index Answer Date Fritz rded National Score (1-100), lower number is lower ri sk 63 03/31/2024 State Score (1-10), lower number is lower risk 4 03/31/2024 Data from: https://www.neighborhoodatlas.medicine.[facility].edu/. Last address used for calculation [address] [place] [address] [address] 03/31/2024 Comments No Sex and Gender Information Value Date Recorded Sex Assigned at Not on file Legal Sex Female 11:04 AM EST Gender Identity Not on file Sexual Orientation Not on file Last Filed Vital Signs Vital Sign Reading Time Taken Comments Blood Pressure 116/74 01/12/2025 9:17 AM EDT Pulse 63 01/12/2025 9:17 AM EDT Temperature 36.7 C (98.1 F) 01/12/2025 9:17 AM EDT Respiratory Rate 18 01/12/2025 9:17 AM EDT Oxygen Saturation 99% 01/12/2025 9:17 AM EDT Inhaled Oxygen Concentration - - Weight 84.8 kg (186 lb 15.2 oz) 12/22/2024 8:30 AM EDT Height 159.6 cm (5' 2.84 ) 09/17/2024 1 0:35 AM EDT Body Mass Index 33.29 09/17/2024 10:35 AM EDT Plan of Treatment Upcoming Encounters Date Type Department Care Team (Latest Contact Info) Description 04/20/2025 9:00 AM EST Visit (SP) Office Hematology/Oncology [address] [facility] [place] [address] Soraya Madison APRN.COMMUNITY SERVICE DIRECTOR [address] [facility] [place] [address] 3 month follow up after lab 04/20/2025 9:30 AM EST Infusion Center Hematology/Oncology [address] [facility] [place] [address] 3 month follow up after lab Health Maintenance Due Date Last Done Comments Anxiety Screening 02/03/1972 Depression Screening 02/03/1972 Hepatitis C Screening 02/03/1972 CT Colonography 1999 Cologuard (FIT-DNA) 1999 Sigmoidoscopy 1999 DTaP,Tdap,Td Vaccine (1 - Tdap) 09/23/2013 4 Colonoscopy 10/06/2014 10/06/2013 Mammogram Screening 01/19/2021 01/20/2020, 01/20/2020, 12/18/2018, Additional history exists Colorectal Cancer Screening 07/19/2023 Fecal Occult Blood 07/19/2023 07/19/2022, 07/19/2022 Advance Directive Discussion 06/04/2024 Medicare Advantage Annual We llness Visit 06/04/2024 Covid-19 Vaccine (5 - 2024-2 6 season) 2025 01/12/2022, 04/03/2021, 08/25/2020, Additional history exists Influenza Vaccine (#1) 2025 , 04/13/2023, 04/03/2022, Additional history exists Diabetes Screening 09/18/2027 09/17/2024, 1 07/16/2023, 03/31/2024, Additional history exists Lipid Screening 10/09/2028 10/10/2023, 04/13/2023 RSV Vaccine (1 - 1-dose 75+ series) 2029 Shingrix Vaccine Completed 03/03/2018, , 07/25/2015 Pneumococcal Vaccine: 50+ Completed 2019, 02/23/2020, 04/04/2019 Bone Density Screening Completed 11/26/2023, 2019 Procedures Procedure Name Priority Date/Time Associated Diagnosis Comments EXTERNAL LAB 12/18/2024 8:05 AM EDT EXTERNAL LAB 12/18/2024 8:05 AM EDT COMPREHENSIVE METABOLIC PANEL Routine 09/17/2024 9:46 AM EDT Iron deficiency anemia, unspecified iron deficiency anemia type HGB FECAL IA Routine 07/19/2022 12:00 PM EST Iron deficiency anemia, unspecified iron deficiency anemia type from Last 3 Months or Most Recently Relevant to Health Maintenance Results * EXTERNAL LAB (12/18/2024 8:05 AM EDT) Only the most recent of2 resultswithin the time period is included. us External Provider [facility] Final Res ult * COMPREHENSIVE METABOLIC PANEL (09/17/2024 9:46 AM EDT) Protein, Total 6.9 6.3 - 8.0 g/dL 09/17/2024 10:37 AM EDT [facility] Albumin 4.3 3.9 - 4.9 g/dL 09/17/2024 10:37 AM EDT [facility] Calcium, Total 10.1 8.5 - 10.2 mg/dL 09/17/2024 10:37 AM EDT [facility] Bilirubin, Total 0.5 0.2 - 1.3 mg/dL 09/17/2024 10:37 AM EDT [facility] Alkaline Phosphatase 104 34 - 123 U/L 09/17/2024 10:37 AM EDT [facility] AST 21 13 - 35 U/L 09/17/2024 10:37 AM EDT [facility] ALT 19 7 - 38 U/L 09/17/2024 10:37 AM [facility] Glucose 97 74 - 99 mg/dL 09/17/2024 10:37 AM [facility] Comment: The [place] Diabetes Association (ADA) provides [...] [place] Diabetes Association. Diabetes Care. 2016.39(Suppl 1). BUN 17 7 - 21 mg/dL 09/17/2024 10:37 AM [facility] Creatinine 0.83 0.58 - 0.96 mg/dL 09/17/2024 10:37 AM [facility] Sodium 144 136 - 144 mmol/L 09/17/2024 10:37 AM [facility] Potassium 4.3 3.7 - 5.1 mmol/L 09/17/2024 10:37 AM [facility] Chloride 106 98 - 107 mmol/L 09/17/2024 10:37 AM [facility] CO2 27 22 - 30 mmol/L 09/17/2024 10:37 AM [facility] Anion Gap 11 8 - 15 mmol/L 09/17/2024 10:37 AM [facility] Estimated Glomerular Filtration Rate 76 >=60 mL/min/1.7 3m 09/17/2024 10:37 AM [facility] Comment:Estimated Glomerular Filtration Rate (eGFR) is calculated using the 2020 CKD-EPI creatinine equation. This equation utilizes serum creatinine, sex, and age as parameters. The creatinine assay has traceable calibration to isotope dilution- mass spectrometry. Refer to KDIGO guidelines for clinical interpretation. In patients with unstable renal function, e.g. those with acute kidney injury, the eGFR may not accurately reflect actual GFR. Blood BLOOD SPECIMEN / Unknown Venipuncture / Unknown 09/17/2024 9:46 AM EDT 09/17/2024 9:46 AM EDT us Suzie Delgadillo PA-C LABORATORY Final Result Performing Organization Address City/[facility]/ZIP Co de Phone Number [facility] [address] [place] [address] * FECAL OCCULT BLOOD TEST (07/19/2022 12:00 PM EST) Occult Blood, Stool Negative Negative 07/24/2022 10:17 AM EST [facility] Stool Random STOOL SPECIMEN / Unknown 07/19/2022 12:00 PM EST 07/22/2022 3:14 AM EST Narrative [facility] - 07/24/2022 10:17 AM EST This test was developed and its performance characteristics determined by [facility]'s [facility] Pathology and Laboratory Medicine [place] ([facility]). It has not been cleared or approved by the FDA. [facility] is regulated under CLIA as qualified to perform high-complexity testing. This test is used for clinical purposes. It should not be regarded as investigational or for research. us Augustin Vital MD LABORATORY Final Re sult [facility] [address] [id number], from Last 3 Months or Most Recently Relevant to Health Maintenance Insurance [id number] MEDICARE ADVANTAGE PPO Care Teams Bartender Relationship Specialty Start Date End Date Pedro Herrera DO [address] [facility] [place] [address] PCP - General Family Medicine 06/16/22 Gabo Pearce MD [address] [place] [phone] Family Medicine 06/21/22
--- OUTSIDE RECORDS SUMMARY | 2025-03-20 08:54 | XMS_ITS | Encounter Summary ---
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 Micheal Trujillo, DO [address] [place] [address] documented as of this encounter Visit Diagnoses Not on filedocumented in this encounter Care Teams Entry Level Paralegal Relationship Specialty Start Date End Date Pedro Herrera MD [address], [place] [address] PCP - General Family Medicine 03/11/25 documented as of this encounter
--- OUTSIDE RECORDS SUMMARY | 2025-03-20 08:55 | XMS_ITS | Encounter Summary ---
Author Organization [facility] [employer] Address [id number] [place] [address] Care Team Providers Care Right Of Way Buyer Name Role Phone SharonPedro Anitra MONROY Primary Care Provider [phone] Encounter Details Date Type Department Care Team (Late st Contact Info) Description 10/05/2022 Refill [facility] - Family Medicine [address] [place] [address] Margo Marti CMA Prediabetes Social History Tobacco Use Types Packs/Day Years [...] often do you attend chur ch or orthodoxy services? More than 4 times per year 09/28/2022 Do you belong to any clubs o r organizations such as adventist groups, unions, fraternal or athletic groups, or [...] PHQ-2 Answer Date Recorded Total Score 0 09/28/2022 [facility] - [...] Telephone Encounter - Margo Marti CMA - 10/05/2022 1:26 PM EDT Pt needs updated script sent to pharmacy, they have the incorrect sig on last script. Pt takes oncedaily, I confirmed. 90 day supply through mail order. documented in this encounter Plan of Treatment Upcoming Encounters Date Type Department Care Team (Late st Contact Info) Description 03/31/2025 8:15 AM EDT Appointment [facility] [place] [address] [place] [address] Lymphedema 04/23/2025 1:15 PM EST Office Visit [facility] - Family Medicine [address] [place] [phone] Pedro Herrera DO [address] [place] [address] 12/15/2025 3:00 PM EDT Office Visit [facility] - Family Medicine [address] [place] [address] documented as of this encounter Visit Diagnoses Diagnosis Prediabetes Other abnormal glucose Lymphedema Other noninfectious lymphedema documented in this encounter Additional Health Concerns Assessment Noted Time PHQ-9 Depression Total Score: 0 09/29/19 23 1:28 PM EDT documented as of this encounter Care Teams Right Of Way Buyer Relationship Specialty Start Date End Date Pedro Herrera DO [address] [place] [address] PCP - General Family Medicine 10/12/20 documented as of this encounter
--- OUTSIDE RECORDS SUMMARY | 2025-03-20 08:55 | XMS_ITS | Encounter Summary ---
Author Organization [facility] [employer] Address [id number] [address] [place] [address] Care Team Providers Care Research And Development Chemist Name Role Phone MariPedro french Primary Care Provider Encounter Details Date Type Department Care Team (Late st Contact Info) Description 06/28/2022 Orders Only [facility] - Family Medicine [address] [place] [phone] Margo Marti CMA Iron deficiency anemia secondary to inadequate dietary iron intake Social History Tobacco Use Types Packs/Day Years Used Date Smoking Tobacco: Never Smokeless Tobacco: Never Alcohol Use Standard Drinks/Week Comments Yes 0 (1 standard drink = 0.6 oz pur e alcohol) Occasional PHQ-2 Answer Date Recorded Total Score 0 06/15/2022 Childcare Answer Date Recorded Childcare Unknown 11/13/2018 [...] have Coronavirus / COVID-19? No / Unsure 06/15/2022 4:15 PM EST documented as of this encounter Plan of Treatment Upcoming Encounters Date Type Department Care Team (Late st Contact Info) Description 03/31/2025 8:15 AM EDT Appointment [facility] [address] [place] [address] Lymphedema 04/23/2025 1:15 PM EST Office Visit [facility] - Family Medicine [address] [place] [address] Pedro Herrera DO [address] [facility] [place] [address] 12/15/2025 3:00 PM EDT Office Visit [facility] - Family Medicine [address] [place] [address] documented as of this encounter Procedures Procedure Name Priority Date/Time Associated Diagnosis Comments AMB REFERRAL TO HEMOPHILIA Routine 06/28/2022 8:00 AM EST Iron deficiency anemia secondary to inadequate dietary iron intake documented in this encounter Results * Ambulatory referral to Hematology (06/28/2022 8:00 AM EST) us Pedro Herrera DO OUTPATIENT REFERRAL ORDERABL ES Final Result MANUALLY TRANSCRIBED RESULTS documented in this encounter Visit Diagnoses Diagnosis Iron deficiency anemia secondary to inadequate dietary iron intake Lymphedema Other noninfectious lymphedema documented in this encounter Additional Health Concerns Assessment Noted Time PHQ-9 Depression Total Score: 0 06/15/19 23 4:31 PM EST documented as of this encounter Care Teams Research And Development Chemist Relationship Specialty Start Date End Date Pedro Herrera DO [address] [place] [address] PCP - General Family Medicine 10/12/20 documented as of this encounter
--- OUTSIDE RECORDS SUMMARY | 2025-03-20 08:55 | XMS_ITS | Encounter Summary ---
Author Organization [facility] [facility] Address [id number] [address] [place] [address] Care Team Providers Care Adjunct Instructor Name Role Phone Pedro Herrera DO Primary Care Provider Encounter Details Date Type Department Care Team (Late st Contact Info) Description 03/16/2022 Orders Only [facility] [address] [place] [phone] Ref Prov, [place] [address] Social History Tobacco Use Types Packs/Day Years [...] [facility] [address] [place] [phone] Lymphedema 04/23/2025 1:15 PM EST Office Visit [facility] - Family Medicine [address] [place] [address] Pedro Herrera DO [address], [place] [address] 12/15/2025 3:00 PM EDT Office Visit [facility] - Family Medicine [address] [place] [address] documented as of this encounter Procedures Procedure Name Priority Date/Time Associated Diagnosis Comments MAMMOGRAPHY Routine 03/06/2022 MAMMOGRAPHY Routine 03/06/2022 documented in this encounter Results * MAMMOGRAPHY (03/06/2022) Anatomical Region Laterality Modality Other us Not In System Ref Prov HEALTH MAINTENANCE Edited Result - Final * MAMMOGRAPHY (03/06/2022) Anatomical Region Laterality Modality Other us Not In System Ref Prov HEALTH MAINTENANCE Final Result documented in this encounter Visit Diagnoses Not on filedocumented in this encounter Care Teams Adjunct Instructor Relationship Specialty Start Date End Date Pedro Herrera DO [address], [place] [address] PCP - General Family Medicine 10/12/20 documented as of this encounter
--- OUTSIDE RECORDS SUMMARY | 2025-03-20 08:55 | XMS_ITS | Encounter Summary ---
Author Organization [facility] Address [facility] [place] [address] Care Team Providers Care Tumbler Drier Operator Name Role Phone Pedro Herrera DO Primary Care Provider Gabo Pearce MD Unavailable [phone] Source Comments In the event this information is protected by the Federal Confidentiality of Alcohol and Drug AbusePatient Records regulations: The Federal rules restrict any use of the information to criminally investigate or prosecute any alcohol or drug abuse patient.[facility] Encounter Details Date Type Department Care Team (Latest Contact Info) Description 01/30/2024 H&P External-NonCCF Provider, External, PA-C Do not enter address information under generic External Provider. Social History Tobacco Use Types Packs/Day Years Used Date Smoking Tobacco: Never Passive Smoke Exposure: Never Smokeless Tobacco: Never Alcohol Use Standard Drinks/Week Comments Yes 0 (1 standard drink = 0.6 oz pur e alcohol) occasional PHQ-2 Answer Date Recorded PHQ-2 score 0 08/31/2022 Area Deprivation Index Answer Date Fritz rded National Score (1-100), lower number is lower ri sk 56 06/22/2022 State Score (1-10), lower number is lower risk N ot on file 06/22/2022 Data from: https://www.neighborhoodatlas.medicine.[facility].edu/. Last address used for calculation [address] 06/22/2022 Comments No Sex and Gender Information Value Date Recorded Sex Assigned at Not on file Legal Sex Female 11:04 AM EST Gender Identity Not on file Sexual Orientation Not on file documented as of this encounter Plan of Treatment Upcoming Encounters Date Type Department Care Team (Latest Contact Info) Description 04/20/2025 9:00 AM EST Visit (SP) Office Hematology/Oncology [address] [place] [address] Soraya Madison APRN.SPECIMEN ACCESSIONER [address] [place] [address] 3 month follow up after lab 04/20/2025 9:30 AM EST Infusion Center Hematology/Oncology [address] [place] [address] 3 month follow up after lab documented as of this encounter Visit Diagnoses Not on filedocumented in this encounter Care Teams Tumbler Drier Operator Relationship Specialty Start Date End Date Pedro Herrera DO [address] [facility] [place] [address] PCP - General Family Medicine 06/16/22 Gabo Pearce MD [address] [place] [address] Family Medicine 06/21/22 documented as of this encounter
--- OUTSIDE RECORDS SUMMARY | 2025-03-20 08:55 | XMS_ITS | Encounter Summary ---
Author Organization [facility] [employer] tem Address [id number] [address] [place] [address] Care Team Providers Care Assistant Child Care Teacher Name Role Phone Pedro Herrera Primary Care Provider Encounter Details Date Type Department Care Team (Late st Contact Info) Description 06/16/2022 Orders Only [facility] - Family Medicine [address] [place] [phone] External, Scanning Provider Social History Tobacco Use [...] [facility] [address] [place] [phone] Lymphedema 04/23/2025 1:15 PM EST Office Visit [facility] [address] [place] [phone] Pedro Herrera DO [address], [facility] [place] [address] 12/15/2025 3:00 PM EDT Office Visit [facility] [address] [place] [phone] documented as of this encounter Procedures Procedure Name Priority Date/Time Associated Diagnosis Comments MULTIPLE LABS Routine 06/02/2022 documented in this encounter Results * Multiple labs (06/02/2022) 06/02/2022 us Scanning Provider External NE IMAGING Final Result MANUALLY TRANSCRIBED RESULTS documented in this encounter Visit Diagnoses Not on filedocumented in this encounter Additional Health Concerns Assessment Noted Time PHQ-9 Depression Total Score: 0 06/15/19 23 4:31 PM EST documented as of this encounter Care Teams Assistant Child Care Teacher Relationship Specialty Start Date End Date Pedro Herrera DO [address] [facility] [place] [address] PCP - General Family Medicine 10/12/20 documented as of this encounter
--- OUTSIDE RECORDS SUMMARY | 2025-03-20 08:55 | XMS_ITS | Encounter Summary ---
Author Organization [facility] [employer] [facility] tem Address [facility] [id number] [address] [place] [address] Care Team Providers Care Pediatric Speech Therapist Name Role Phone Pedro Herrera Primary Care Provider [phone] Encounter Details Date Type Department Care Team (Late st Contact Info) Description 03/16/2022 Orders Only [facility] [address] [place] [address] [phone] Grace Pagan MA Hypernatremia; Iron deficiency anemia due to dietary causes; Mixed hyperlipidemia; Hyperglycemia Social History Tobacco Use Types Packs/Day Years [...] [facility] [address] [place] [address] [phone] Lymphedema 04/23/2025 1:15 PM EST Office Visit [facility] [address] [place] [phone] Pedro Herrera, DO [address], [place] [address] 12/15/2025 3:00 PM EDT Office Visit [facility] [address] [place] [phone] documented as of this encounter Procedures Procedure Name Priority Date/Time Associated Diagnosis Comments CBC (NO DIFF) Routine 03/10/2022 Iron deficiency anemia due to dietary causes OSMOLALITY Routine 03/10/2022 Hypernatremia HEMOGLOBIN A1C Routine 03/10/2022 Hyperglycemia LIPID PROFILE Routine 03/10/2022 Mixed hyperlipidemia COMPREHENSIVE METABOLIC PANEL Routine 03/10/2022 Mixed hyperlipidemia documented in this encounter Results * Hemoglobin A1c (03/10/2022) External Hemoglobin A1C 5.2` % [facility] Blood 03/10/2022 us Pedro Herrera DO LAB BLOOD ORDERABLES Final R esult Performing Organization Address City/[facility] Co de Phone Number SUNQUEST * Lipid panel (03/10/2022) External Cholesterol 134 [facility]QUEST External Hdl Cholesterol 49 [facility]QUEST External Ldl (Calc) 67.4 [facility]QUEST External Triglycerides 88 [facility]QUEST External Very Low Lipoprotein 17.6 [facility] Blood 03/10/2022 Pedro Herrera DO LAB BLOOD ORDERABLES Final R esult SUNQUEST * Comprehensive metabolic panel (03/10/2022) External Albumin 3.5 [facility]QUEST External Alt Sgpt 20 [facility]QUEST External Anion Gap 15.3 [facility]QUEST External Ast 15 [facility]QUEST External Blood Urea Nitrogen Bun 22.0 [facility]QUEST External Calcium Ca 9.1 [facility] External Chloride 127 [facility] External Co2 / Carbon Dioxide 28.1 [facility] External Creatinine 0.90 [facility] External Gfr Amer >60 [facility]QUEST External Gfr Non Amer >60 [facility]QUEST External Glucose Fasting Or Random (Fbs) 94 [facility]QUEST External Potassium K 5.0 [facility]QUEST External Sodium Na 162 [facility]QUEST Total Bilirubin 0.5 [facility]QUEST External Total Protein 6.8 [facility] Blood 03/10/2022 Pedro Herrera DO LAB BLOOD ORDERABLES Final R esult Performing Organization Address [facility] de Phone Number SUNQUEST * Osmolality (03/10/2022) 03/10/2022 Pedro Herrera DO LAB BLOOD ORDERABLES Final R esult Performing Organization Address [facility] de Phone Number SUNQUEST * CBC (03/10/2022) External Hematocrit Hct 24.7 [facility] External Hemoglobin 7.2 [facility]QUEST External Mpv 9.4 [facility]QUEST External Platelet Count 384 [facility]QUEST External Rbc Count 3.48 [facility]QUEST External Rdw 17.7 [facility]QUEST External Wbc Count 5.0 [facility] Blood 03/10/2022 Pedro Herrera DO LAB BLOOD ORDERABLES Final R esult Performing Organization Address [facility] de Phone Number SUNQUEST documented in this encounter Visit Diagnoses Diagnosis Hypernatremia Hyperosmolality and/or hypernatremia Iron deficiency anemia due to dietary causes Iron deficiency anemia secondary to inadequate dietary iron intake Mixed hyperlipidemia Hyperglycemia Other abnormal glucose Lymphedema Other noninfectious lymphedema documented in this encounter Care Teams Pediatric Speech Therapist Relationship Specialty Start Date End Date Pedro Herrera DO [address], [facility] [place] [address] PCP - General Family Medicine 10/12/20 documented as of this encounter
--- OUTSIDE RECORDS SUMMARY | 2025-03-20 08:55 | XMS_ITS | Encounter Summary ---
Author Organization [facility] Best Teacher [facility] tem Address [facility] [id number] [address] [place] [address] Care Team Providers Care Armoured Car Escort Name Role Phone Pedro Herrera DO Primary Care Provider [phone] Encounter Details Date Type Department Care Team (Late Contact Info) Description 03/14/2022 Orders Only [facility] - Family Medicine [address] [place] [phone] Ref Prov, [place] [address] Social History Tobacco Use Types Packs/Day Years [...] [facility] [address] [place] [phone] Lymphedema 04/23/2025 1:15 PM EST Office Visit [facility] - Family Medicine [address] [place] [phone] Pedro Herrera DO [address], [place] [address] 12/15/2025 3:00 PM EDT Office Visit [facility] [address] [place] [address] documented as of this encounter Procedures Procedure Name Priority Date/Time Associated Diagnosis Comments OSMOLALITY, URINE Routine 03/14/2022 documented in this encounter Results * Osmolality, urine (03/14/2022) us Not In System Ref Prov URINE ORDERABLES Final Re sult MANUALLY TRANSCRIBED RESULTS documented in this encounter Visit Diagnoses Not on filedocumented in this encounter Care Teams Armoured Car Escort Relationship Specialty Start Date End Date Pedro Herrera DO [address], [place] [address] PCP - General Family Medicine 10/12/20 documented as of this encounter
[2025-03-20 09:25] LABS: Hematocrit 35.9 % (36.0-48.0); Hemoglobin 11.7 g/dL (12.0-16.0); Immature Granulocytes Abs Auto 0.02 10^3/uL (0.00-0.03); Immature Granulocytes Pct Auto 0.4 % (0.0-0.5); Lymphocytes Absolute Auto 1.6 10^3/uL (1.2-3.8); Mean Corpuscular HGB Conc 32.6 g/dL (29.9-35.2); Mean Corpuscular Hemoglobin 28.6 pg (26.7-34.0); Mean Corpuscular Volume 87.8 fL (81.0-99.0); Platelet Count 290 10^3/uL (150-450); Red Blood Count 4.09 10^6/uL (4.20-5.40); White Blood Count 5.0 10^3/uL (4.0-11.0)
[2025-03-20 11:10] LABS: Ferritin 44.0 ng/mL (8.0-252.0)
[2025-03-20 11:11] LABS: Iron 50.0 ug/dL (50.0-170.0); Percent Iron Saturation 15.2 %; Total Iron Binding Capacity 330.0 ug/dL (250.0-450.0)
== END 2025-03-20 08:45 | disposition home or self-care (01) ==
LOC: LAB 08:46
PROVIDERS: PCP Family Medicine; Visit Provider Internal Medicine
DX: D50.9 Iron deficiency anemia, unspecified (principal)
CPT/HCPCS: 36415; 82728; 83540; 83550; 85025

== ENCOUNTER 2025-03-27 10:32 | Outpatient (OUT) | payer MEDICARE, SELFPAY ==
--- OUTSIDE RECORDS SUMMARY | 2025-03-17 08:30 | XMS_ITS | Encounter Summary ---
Author Organization [facility] Address [address] [place] [address] Care Team Providers Care Lead Advisor Name Role Phone Pedro Herrera MD Primary Care Provider + [phone] Reason for Referral * Consultation (Routine) - AuthorizedSpecialtyDiagnoses / ProceduresReferred By ContactReferred To ContactOccupational Medicine Diagnoses Lymphedema Procedures NE OFFICE/OUTPATIENT [facility] 60 MINUTES Jr. Micheal Trujillo DO [address] [address] Phone: tel: fax: [facility] [address] [facility], [facility] fax: Referral IDStatusReasonStart DateExpiration DateVisits RequestedVisits [id number] Consult and Treat / Reason for Visit * ReasonCommentsPain Encounter Details DateTypeDepartmentCare Team (Latest Contact Info)Akgdkuqfidm50/14/2025 8:30 AM EDTOffice Visit [facility] [address] [place] [phone] Jr. Micheal Trujillo DO [address] [address] Acute pain of right knee; Lymphedema Social History Tobacco UseTypesPacks/DayYears UsedDateSmoking Tobacco: NeverSmokeless Tobacco: NeverAlcohol UseStandard Drinks/WeekCommentsYes0 (1 standard drink = 0.6 oz pure alcohol)Alcohol: 1 or 2 drinks on typical day/monthly or less. 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 Micheal Trujillo, - 03/17/2025 8:30 AM EDT Images from the original note were not included. HISTORY OF PRESENT ILLNESS: EST PT Ene Lemus is an 70 y.o. @ female. EST PT S/P (R) TKA 02/09/23(~2YR 1MO) - PT STATES SHE DOES HAVE PAIN- PT STATES SHE HAS ALWAYS HAD PAIN OFF AND ON SINCE SURGERY- NO KNOWN INJURY XRAY RT KNEE TODAY EPIC 03/17/25 XRAY RT KNEE CHANGE 03/20/23 PT [facility] NO MDP/PREDNISONE NO RECENT LABS PT NOTES GOOD DAYS AND BAD DAYS- NOTES SOME POPPING- PAIN MEDIAL KNEE- DENIES INSTABILITY- INTERMITTENT SWELLING- PT ICES/ELEVATES- +IBUPROFEN -+WAKES HS- CONTINUES YOGA 1X/WK- PT DOES NOTE SOME THIGH PAIN ALLERGIES: No Known Allergies HOME MEDICATIONS: Current Outpatient Medications Medication Instructions amoxicillin (Amoxil) 500 MG tablet 4 tabs PO once 30-60 mins before procedure with food aspirin 81 mg, Daily atorvastatin (Lipitor) 10 MG tablet 1 tablet, Every morning biotin 29179 MCG tablet 1 capsule, Every 24 hours Calcium Carbonate (CALCIUM 600 PO) Take by mouth. cholecalciferol (VITAMIN D-3) 14,000 Units, Daily ferrous sulfate 325 mg, Daily with breakfast levothyroxine (SYNTHROID, LEVOXYL) 50 mcg, Daily RT metFORMIN (Glucophage) 500 MG tablet gecqbbdmksan-vwds-lzulehhi-folic acid (Centrum Silver, geriatric,) tablet as directed [...] unremarkable. Increased warmth: none Masses: none Tenderness: present Medial joint line: mild Medial retinaculum: mild Range of Motion Right Right knee range of motion is normal and full. Active extension: 0 Passive extension: 0 Active flexion: 120 Passive flexion: 120 Strength Right Right knee strength is normal. Extension: 5/5. Flexion: 5/5. Instability Right Instability signs: none - stable Varus stress grade: normal Valgus stress grade: normal Neurovascular Right Right knee neurovascular exam is normal. Pulses - PT: normal Posterior tibial: 2+ Capillary refill: warm and well-perfused Special Signs Right Right knee special signs are normal. Patellar apprehension: none General Constitutional: appears stated age Labored breathing: no Psychiatric: normal mood and affect Neurological: alert Skin: intact Lymphadenopathy: none Vitals: There is no height or weight on file to calculate BMI. Tobacco Use: Low Risk (10/03/2024) Received from [employer] Patient History Smoking Tobacco Use: Never Smokeless Tobacco Use: Never Passive Exposure: Not on file Alcohol Use: Not At Risk (09/28/2022) Received from [employer] AUDIT-C Q1: How often do you have a drink containing alcohol?: 2-3 times a week Q2: How many drinks containing alcohol do you have on a typical day when you are drinking?: 1 or 2 Q3: How often do you have six or more drinks on one occasion?: Never IMAGING: XR knee 1 or 2 views right Imaging Result: AP and lateral of right knee showed surgical position and alignment of prosthetic components without evidence of loosening or wear to the femoral, tibial, or patellar components. The alignment appeared to be anatomic. There was no evidence of accelerated or asymmetric wear to the patellar button ortibial tray. There was no evidence of fracture and/or dislocation. Impression: Unremarkable right total knee arthroplasty. Procedures Orders Placed This Encounter Procedures XR knee 1 or 2 views right Reason for exam:: PAIN Ambulatory referral to Occupational Medicine EVAL AND TX FOR RIGHT LOWER EXTREMITY EDEMA Standing Status: Future Expected Date: 03/17/2025 Expiration Date: 09/15/2025 Referral Priority: Routine Referral Type: Consultation Referral Reason: Consult and Treat [facility] Requested Specialty: Occupational Medicine Number of Visits Requested: 1 ASSESSMENT: ICD-10-CM 1. Acute pain of right knee M25.561 XR knee 1 or 2 views right 2. Lymphedema I89.0 Ambulatory referral to Occupational Medicine PLAN: We have discussed her x-rays, physical exam, symptoms and lymphedema to her right lower extremity. We recommended the lymphedema clinic or her right lower extremity and we'll see her back in 10 weeks. If her symptoms persist or worsen we may recommend a Medrol Dosepak. She states she can control her symptoms with Motrin 800 mg once a day. She is better than before surgery but she does have pain on a daily basis to her right knee. Questions answered in laymen terms at the bedside. The diagnosis, home exercise plan and any ongoing restrictions/ recommendations reviewed. If unable to be reached in office, I recommend evaluation at nearest Emergency Room if any symptoms worsened or new symptoms develop for requiring urgent evaluation. documented in this encounter Plan of Treatment DateTypeDepartmentCare Team (Latest Contact Info)Gbbonqyivcn58/23/2025 8:30 AM ESTOffice Visit [facility] [address] [place] [phone] Jr. Micheal Trujillo DO [address] [facility] [address] [place] [address] NameTypePriorityAssociated DiagnosesOrder ScheduleAmbulatory referral to Occupational MedicineOutpatient ReferralRoutine Lymphedema Expected: 03/17/2025 (Approximate), Expires: 09/15/2025documented as of this encounter Procedures Procedure NamePriorityDate/TimeAssociated DiagnosisCommentsXR KNEE 1-2 VIEWS GUYMCDfdtven39/14/2025 8:50 AM EDT Acute pain of right knee documented in this encounter Results * XR knee 1 or 2 views right (03/17/2025 8:50 AM EDT)Anatomical RegionLaterality ModalityLower Extremities, KneeRightRadiographic ImagingSpecimen (Source) Anatomical Location / LateralityCollection Method / VolumeCollection Time Received Time Narrative 03/17/2025 9:02 AM EDT Imaging Result: AP and lateral ??of right knee showed surgical position and alignment of prosthetic components without evidence of loosening or wear to the ?? femoral, tibial, or patellar components. ??The alignment appeared to be anatomic. ?? There was no evidence of accelerated or asymmetric wear to the patellar button or tibial tray. ??There was no evidence of fracture and/or dislocation. ??Impression: Unremarkable right total knee arthroplasty. Authorizing ProviderResult TypeResult StatusJr. Micheal Trujillo [facility] XR PROCEDURESFinal Result documented in this encounter Visit Diagnoses Diagnosis Acute pain of right knee Lymphedema Other noninfectious lymphedema documented in this encounter Care Teams Team MemberRelationshipSpecialtyStart DateEnd Date Pedro Herrera MD [address] [facility] [place] [address] PCP - GeneralFamily Wthrmjuj84/8/25documented as of this encounter
--- OUTSIDE RECORDS SUMMARY | 2025-03-17 08:55 | XMS_ITS | Encounter Summary ---
Author Organization [facility] Address [address] [facility] [place] [address] Care Team Providers Care Consumer Affairs Specialist Name Role Phone Pedro Herrera MD Primary Care Provider + [phone] Encounter Details DateTypeDepartmentCare Team (Latest Contact Info)Jfsaxdpnstw74/14/2025 8:55 AM EDTAncillary Procedure [facility] [address] [place] [address] Social History Tobacco UseTypesPacks/DayYears UsedDateSmoking Tobacco: NeverSmokeless Tobacco: NeverAlcohol UseStandard Drinks/WeekCommentsYes0 (1 standard drink = 0.6 oz pure alcohol)Alcohol: 1 or 2 drinks on typical day/monthly or less. 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 Micheal Trujillo, DO [address] [place] [address] documented as of this encounter Procedures Procedure NamePriorityDate/TimeAssociated DiagnosisCommentsXR KNEE 1-2 VIEWS EOZSPEbfxpjl52/14/2025 8:50 AM EDT Acute pain of right [...] arthroplasty. Authorizing ProviderResult TypeResult StatusJr. Micheal Trujillo DOIMG XR PROCEDURESFinal Result documented in this encounter Visit Diagnoses Not on filedocumented in this encounter Care Teams Team MemberRelationshipSpecialtyStart DateEnd Date Pedro Herrera MD [address] [place] [address] PCP - GeneralFamily Xyfmpxgh32/8/25documented as of this encounter
--- OUTSIDE RECORDS SUMMARY | 2025-03-24 09:40 | XMS_ITS | Continuity of Care Document ---
Author Organization [facility] Address [address] [place] [address] Phone Care Team Providers Care Transport Tech Name Role Phone Pedro Herrera DO Primary Care Provider Keith Plummer MD Attending Provider Keith Plummer MD Other Provider Care Teams Patient Care Team Team Status: Active Member Role/Relationship Status Dates Pedro Herrera DO Primary Care Provider Active Visit Care Team Team Status: Inactive Member Role/Relationship Status Dates Pedro Herrera DO Primary Care Provider Active Start: February 18, 2025 End: February 18, 2025Fredo Cisneros ProviderActiveStart: February 18, 2025 End: February 18, 2025 Patient Care Team Team Status: Active Member Role/Relationship Status Dates Pedro Herrera DO Primary Care Provider Active Start: March 24, 2025 Fredo Cisneros ProviderActiveStart: March 24, 2025 Guillermina Cisneros ProviderActiveStart: March 24, 2025 Chief Complaint and Reason for Visit Chief Complaint Admit Date Refer: VERN February 18, 2025 1:23pm Iron def anemia March 24, 2025 1 0:17am Reason for Visit Admit Date Iron deficiency anemia February 18, 025 1:23pm Allergies, Adverse Reactions, Alerts Allergen Type Severity Reaction Last Updated Verified Status No Known Allergies Allergy Unknown March 24, 2025 10:38amYesActive Social History Smoking Status Status Start Date End Date Date of Observa tion Never smoked tobacco (finding) January 16, 2024 9:13am Observation Status Observation Response Date of Response Legal Sex Female (finding) Sex Assigned At BirthFemaleSept1954 Family History Relationship Condition Age at Onset Recorded Date/T andree father Unknown family memberDeceasedUnknownmotherMalignant neoplasmUnknownDeceasedUnknown Problems Active Problems Problem Diagnosis/Recorded Date Onset Date Stat Iron deficiency anemia February 18, 2025 1:25pm Unk nown Active Medications Medication Status Dose Units Route Directions Qty Days Refills S tart Date Stop Date End Date Reason(s) Instructions Adherence Pantoprazole 40 mg tablet,delayed release (DR/EC) Active 40 MG PO Twice daily 60 0October 2024 12:00amUnknownOxybutynin Chloride 15 mg tablet extended release 51ewHuvfya72EEJOPmgypWhluyp 2023 12:00amComplies with drug therapy Ferrous Sulfate (Feosol) 325 mg (65 mg iron) rtnchxUcugmdupwvhu870WQSLLjhoj January 16, 2024 12:00amSeptember 2024 1:39pmMetformin 500 mg tablet Mnvrng615NRJETcqltPtvxlz 14th, 2024 12:00amComplies with drug therapy Levothyroxine 50 mcg luxlatHejlzo42LSTVRUwsrhKmigfd 2023 12:00amComplies with drug therapyAtorvastatin 20 mg pevehiDdgqah96MOCZIytucDojctk 2023 12:00amComplies with drug therapy Vital Signs Vital Reading Result Reference Range Collection Date/Time Height 65 [in_i] February 18, 2025 1:00khAgakut22.00 kgSeptember 2024 1:25pmHeart Rate86 /ajj77-782Gcoqxoxuf 17th, 2025 1:25pmBP Adhecazn350 mm[Hg]100-140Sept2024 1:25pmBP Weytxssjf73 mm[Hg]60-100September 2024 1:25pmBMI (Body Mass Index)30.4 kg/a1Upztxesvj 2024 1:72uvNeadcg87 [in_i]March 24, 2025 10:31wtGmrjrj55.64 kgOctober 2024 10:41amHeart Rate71 /sdf64-477 March 24, 2025 1:18pmRespiratory rate20 /rfn93-89WqleifmMarch 24, 2025 1:18pm Oxygen saturation by Pulse ceetkawn08 %95-100March 24, 2025 1:18pmBP Lldbfpmk414 mm[Hg]100-140March 24, 2025 1:18pmBP Hbuebwuvk30 mm[Hg]60-100 March 24, 2025 1:18pm Advance Directives Advance Directive Response Recorded Date/ Time Advance Directives No August 20 11:18am Insurance Providers Guarantor Ene Lemus Address [address] [place] [id number] Info.Home Phone: Payer Group Member ID Coverage Type Subscriber Relationship to Subscriber Effective Date Expiration Date Woodrow GLASGOW Id: [id number] Halie Lemus Id: [id number] [address] [place] [id number] Home Phone: Self Encounters Encounter Location(s) Arrival/Admit Date Discharge/Departure Date Discharge/Departure Disposition Provider(s) Departed Physician/ Provider Office Visit -[facility] February 18, 2025 1:23pm February 18, 2025 1:53pm Discharged to home care or self care (routine discharge) Keith Plummer MD Non-patient / Non-visit -[facility] Octob er 2024 10:17am Keith Plummer MD Recent Diagnosis Onset Date Admit Date Iron deficiency anemia Unknown February 18, 2025 1:23pm Assessments Author [facility] 1:45nh21-gvwz-fxp female referred to the GI clinic for evaluation of iron deficiency anemia. Patient required iron infusions 3 times over the last few months. - Will arrange for EGD/colonoscopy - Will check CBC iron profile and ferritin Plan of Treatment Future Tests Future scheduled test information is unavailable Pending Tests Pending diagnostic test information is unavailable Future Visits Future appointment information is unavailable Future Procedures Procedure Name Ordered Date Scheduled Date Discharge Order March 24, 2025 12:46pm Octob er 2024 12:46pm Complete Blood Count Auto Diff February 18, 025 1:41pm Iron and TIBC ProfileSept2024 1:41pmFerritinSeptember 2024 1:41pm Future Medications Future medication information is unavailable Patient Instructions Instruction Admit Date Gastritis Pantoprazole [facility] Esophagitis Discharge Instructions Know your MedsOctober 2024 10:17am Hospital Discharge Instructions Additional Instructions DISCHARGE INSTRUCTIONS FOR UPPER ENDOSCOPY WHAT TO EXPECT: - You may feel full, gassy or cramping after your procedure. In some cases, this may be from a few hours to a day. Walking may help relieve the discomfort. - Your throat may feel sore today from the scope that the doctor passed through your throat to visualize your stomach. Take a throat lozenge or suck on ice to ease the discomfort. - You may notice some streaks of blood in your sputum if the doctor has taken a biopsy. - You should begin to recover from anesthesia within 1 hour of the procedure, however may feel groggy for the next 24 hours. DO's AND DON'Ts: - Call your doctor right away if you have a hard abdomen, severe pain, vomiting or if you cough up large amounts of blood. - Call your doctor if you develop any rashes, hives or difficulty breathing. - If you take 81 mg aspirin for your heart it is safe to resume this medication. - If you take other blood thinner medications your doctor will instruct you when these can safely be resumed. - Do NOT drive for 24 hours. - Do NOT operate machinery such as power tools, lawn mowers, snow blowers, sewing machines, etc. for 24 hours. - Avoid alcoholic beverages and drugs for allergies, nerves, or sleep. - Do NOT stay alone. Do NOT leave your child unattended. - Do NOT make important personal or business decisions or sign any legal documents. - Eat solid foods and drink liquids in smaller amounts than usual until normal appetite returns. If you should experience an upset stomach, liquids high in sugar content (soda, Rashid-Aid, non-acid juices) are recommended. - Do NOT smoke. - Do take it easy today. You need not stay in bed, but avoid strenuous activities such as jogging or working out. DISCHARGE INSTRUCTIONS FOR COLONOSCOPY WHAT TO EXPECT: - You may feel full, gassy or cramping after your procedure. In some cases, this may be from a few hours to a day. Walking may help relieve the discomfort. - If you have polyp(s) removed you may note some minor bloody discharge after your first bowel movements. - You should begin to recover from anesthesia within 1 hour of the procedure, however may feel groggy for the next 24 hours. DO's AND DON'Ts: - Call your doctor right away if you have a hard abdomen, sever pain, are passing lots of bright red blood or clots. - Call your doctor if you develop any rashes, hives or difficulty breathing. - Let your doctor know if you have not had a bowel movement by 3 days after your procedure. - If you take 81 mg aspirin for your heart it is safe to resume this medication. - If you take other blood thinner medications your doctor will instruct you when these can safely be resumed. - Do NOT drive for 24 hours. - Do NOT operate machinery such as power tools, CirroSecuren mowers, Squidbid blowers, sewing machines, etc. for 24 hours. - Avoid alcoholic beverages and drugs for allergies, nerves, or sleep. - Do NOT stay alone. Do NOT leave your child unattended. - Do NOT make important personal or business decisions or sign any legal documents. - Eat solid foods and drink liquids in smaller amounts than usual until normal appetite returns. If you should experience an upset stomach, liquids high in sugar content (soda, Rashid-Aid, non-acid juices) are recommended. - You can resume normal activities tomorrow. FOLLOW UP & RECOMMENDATIONS: -Notify the doctor if you have any problems. -Pantoprazole 40 mg twice daily for 8 weeks -Repeat EGD in 8 weeks to assess for Xiong's -Office will call you to schedule capsule endoscopy - Office number [phone].
--- OUTSIDE RECORDS SUMMARY | 2025-03-27 10:37 | XMS_ITS | Encounter Summary ---
Author Organization [employer] [facility] tem Address [facility] [id number] [address] [place] [address] Care Team Providers Care Clay Worker Name Role Phone Pedro Herrera DO Primary Care Provider [phone] Encounter Details DateTypeDepartmentCare Team (Latest Contact Info)Ruftgwdfmnc53/14/2025Travel Social History Tobacco UseTypesPacks/DayYears UsedDateSmoking Tobacco: NeverSmokeless Tobacco: NeverAlcohol UseStandard Drinks/WeekCommentsYes0 (1 standard drink = 0.6 oz pure alcohol)OccasionalAHC UtilitiesAnswerDate RecordedIn the past 12 months has the electric, gas, oil, or water company threatened to shut off services in your home?No10/10/2023Social Connection and Isolation PanelAnswerDate RecordedIn a typical week, how many times do you talk on the phone with family, friends, or neighbors?More than three times a week09/28/2022How often do you get together with friends or relatives?Twice a week09/28/2022How often do you attend quaker or latter-day services?More than 4 times per year09/28/2022o you belong to any clubs or organizations such as quaker groups, unions, fraternal or athletic perla ups, or school groups?No09/28/2022How often do you attend meetings of the clubs or organizations you belong to?Never09/28/2022re you , , , , never , or living with a partner?Pacoetx8509/28/2022 AUDIT-CAnswerDate RecordedQ1: How often do you have a drink containing alcohol? 2-3 times a week09/28/2022Q2: How many drinks containing alcohol do you have on a typical day when you are drinking?1 or Q3: How often do you have six or more drinks on one occasion?Never09/28/2022Overall Financial Resource Strain (CARDIA)AnswerDate RecordedHow hard is it for you to pay for the very basics like food, housing, medical care, and heating?Not hard at all09/28/2022 PHQ-2AnswerDate RecordedTotal Bjuel223FinIndiana [facility] - Occupational Stress QuestionnaireAnswerDate RecordedDo you feel stress - tense, restless, nervous, or anxious, or unable to sleep at night because your mind is troubled all the time - these days?Not at all09/28/2022Exercise Vital SignAnswerDate RecordedOn average, how many days per week do you engage in moderate to strenuous exercise (like a brisk walk)?4 days12/11/2023On average, how many minutes do you engage in exercise at this level?40 min12/11/2023RAPARE - TransportationAnswerDate RecordedIn the past 12 months, has lack of transportation kept you from medical appointments or from getting medications?No 09/28/2022In the past 12 months, has lack of transportation kept you from meetings, work, or from getting things needed for daily living?No09/28/2022 Housing InstabilityAnswerDate RecordedAre you worried or concerned that in the next two months you may not have stable housing that you own, rent or stay in as a part of a household?No09/28/2022hildcareAnswerDate RecordedDo problems getting child care sitter make it difficult for you to work or study?No09/28/2022 EmploymentAnswerDate RecordedDo you need help finding a local career center and/or a training program?No10/10/2023Hunger ScreeningAnswerDate RecordedWithin the past 12 months we worried whether our food would run out before we got money to buy more.Never True12/11/2024Within the past 12 months the food we bought just didn't last and we didn't have money to get more.Never True12/11/2024 Purpose - LifeAnswerDate RecordedI have a purpose and direction in my life. Strongly Agree3CommentsNoSex and Gender InformationValueDate RecordedSex Assigned at BirthNot on fileLegal WmsHihxas93/06/2015 11:48 AM EDT Gender IdentityNot on fileSexual OrientationNot on filedocumented as of this encounter Plan of Treatment DateTypeDepartmentCare Team (Latest Contact Info)Xddxtmcfzwz39/28/2025 8:15 AM EDTAppointment [facility] [address] [place] [address] Xdzbfozfyo61/20/2025 1:15 PM ESTOffice Visit [facility] [address] [place] [address] Pedro Herrera DO [address] [place] [address] 12/15/2025 3:00 PM EDTOffice Visit [facility] [address] [place] [phone] documented as of this encounter Visit Diagnoses Not on filedocumented in this encounter Additional Health Concerns AssessmentNoted TimePHQ-9 Depression Total Score: 1:42 PM EDTA Body Mass Index follow-up plan has been documented for the lqsndgx8210/03/2024 1:59 PM EDTdocumented as of this encounter Care Teams Team MemberRelationshipSpecialtyStart DateEnd Date Pedro Herrera DO [address] [place] [address] PCP - GeneralFamily Medicine10/12/20documented as of this encounter
--- OUTSIDE RECORDS SUMMARY | 2025-03-27 10:37 | XMS_ITS | Encounter Summary ---
Author Organization [facility] Address [id number] [place] [address] Care Team Providers Care Insurance Claim Auditor Name Role Phone MariPedro french Primary Care Provider [phone] Encounter Details DateTypeDepartmentCare Team (Latest Contact Info)Wfznxhimeht74/22/2025Orders Only [facility] [address] [place] [address] Ref Prov, [place] [address] Social History Tobacco UseTypesPacks/DayYears UsedDateSmoking Tobacco: NeverSmokeless Tobacco: NeverAlcohol UseStandard Drinks/WeekCommentsYes0 (1 standard drink = 0.6 oz pure alcohol)OccasionalAHC UtilitiesAnswerDate RecordedIn the past 12 months has the electric, gas, oil, or water [employer] threatened to shut off services in your home?No10/10/2023Social Connection and Isolation PanelAnswerDate RecordedIn a typical week, how many times do you talk on the phone with family, friends, or neighbors?More than three times a week09/28/2022How often do you get together with friends or relatives?Twice a week09/28/2022How often do you attend restorationism or mormon services?More than 4 times per year09/28/2022o you belong to any clubs or organizations such as restorationism groups, unions, fraternal or athletic perla ups, or school groups?No09/28/2022How often do you attend meetings of the clubs or organizations you belong to?Never09/28/2022re you , , , , never , or living with a partner?Elyfrak5909/28/2022 AUDIT-CAnswerDate RecordedQ1: How often do you have [...] and heating?Not hard at all09/28/2022 PHQ-2AnswerDate RecordedTotal Tfviv751Finfillmore community medical center [place] of Occupational Health - Occupational Stress QuestionnaireAnswerDate [...] part of a household?No09/28/2022hildcareAnswerDate RecordedDo problems getting early childhood specialist make it difficult for you to work [...] InformationValueDate RecordedSex Assigned at BirthNot on fileLegal CxwUpaziw79/06/2015 11:48 AM EDT Gender IdentityNot on fileSexual OrientationNot on filedocumented as of this encounter Plan of Treatment DateTypeDepartmentCare Team (Latest Contact Info)Yjnsybhupyp38/28/2025 8:15 AM EDTAppointment [facility] [address] [place] [address] Yfomzvunxt75/20/2025 1:15 PM ESTOffice Visit [facility] [address] [place] [address] Pedro Herrera, DO [address], [facility] [place] [address] 12/15/2025 3:00 PM EDTOffice Visit [facility] [address] [place] [address] documented as of this encounter Procedures Procedure NamePriorityDate/TimeAssociated DiagnosisCommentsHM COLONOSCOPYRoutine 03/25/2025 10:06 AM EDTdocumented in this encounter Results * HM COLONOSCOPY (03/25/2025 10:06 AM EDT) Narrative Authorizing ProviderResult TypeResult StatusNot In System Ref ProvHEALTH MAINTENANCEFinal ResultPerforming OrganizationAddressCity/State/ZIP CodePhone Number MANUALLY TRANSCRIBED RESULTS documented in this encounter Visit Diagnoses Not on filedocumented in this encounter Additional Health Concerns AssessmentNoted TimePHQ-9 Depression Total Score: 1:42 PM EDTA Body Mass Index follow-up plan has been documented for the qhtxccc1810/03/2024 1:59 PM EDTdocumented as of this encounter Care Teams Team MemberRelationshipSpecialtyStart DateEnd Date Pedro Herrera DO [address], [facility] [place] [address] PCP - GeneralFamily Medicine10/12/20documented as of this encounter
--- OUTSIDE RECORDS SUMMARY | 2025-03-27 10:37 | XMS_ITS | Encounter Summary ---
Author Organization [facility] Address [address] [facility] [place] [address] Care Team Providers Care Net Manager Name Role Phone Pedro Herrera MD Primary Care Provider + [phone] Encounter Details DateTypeDepartmentCare Team (Latest Contact Info)Juoelsirxjt44/14/2025Travel Social History Tobacco UseTypesPacks/DayYears UsedDateSmoking Tobacco: NeverSmokeless Tobacco: NeverAlcohol UseStandard Drinks/WeekCommentsYes0 (1 standard drink = 0.6 oz pure alcohol)Alcohol: 1 or 2 drinks on typical day/monthly or less. 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 Micheal Trujillo, DO [address] [place] [address] documented as of this encounter Visit Diagnoses Not on filedocumented in this encounter Care Teams Team MemberRelationshipSpecialtyStart DateEnd Date Pedro Herrera MD [address] [facility] [place] [address] PCP - GeneralFamily Vhnihykw36/8/25documented as of this encounter
--- OUTSIDE RECORDS SUMMARY | 2025-03-27 10:37 | XMS_ITS | Clinical Summary ---
Author Organization [facility] Address [address] [place] [address] Phone Care Team Providers Care Drawing Supervisor Name Role Phone Unavailable Primary Care Provider Unavailabl e Social History Tobacco UseTypesPacks/DayYears UsedDateSmoking Tobacco: Never Assessed CommentsUnknownSex and Gender InformationValueDate RecordedSex Assigned at Not on fileLegal SkrXqasxm41/26/2022 3:54 AM ESTGender IdentityNot on fileSexual OrientationNot on file Plan of Treatment Not on file
--- OUTSIDE RECORDS SUMMARY | 2025-03-27 10:37 | XMS_ITS | Clinical Summary ---
Author Organization [facility] Address [address] [place] [address] Care Team Providers Care Manager Economic Name Role Phone Pedro Herrera MD Primary Care Provider + [phone] Allergies No known active allergies Medications MedicationSigDispense QuantityRefillsLast FilledStart DateEnd DateStatus metFORMIN (Glucophage) 500 MG tablet 11/28/2022ctive oxybutynin XL (Ditropan-XL) 15 MG 24 hr tablet 1 (one) time each day at the same time.Active azrayowmnbml-jeoc-lpwiitwr-folic acid (Centrum Silver, geriatric,) tablet as directed OrallyActive biotin 63789 MCG tablet 1 capsule 1 (one) time each day at the same time.Active atorvastatin (Lipitor) 10 MG tablet Take 1 tablet by mouth in the morning.06/06/2022ctive levothyroxine (Synthroid, Levoxyl) 50 MCG tablet Take 50 mcg by mouth in the morning.05/06/2022ctive aspirin 81 MG EC tablet Take 81 mg by mouth in the morning.Active Calcium Carbonate (CALCIUM 600 PO) Take by mouth.Active cholecalciferol (Vitamin D-3) 350 MCG (20382 UT) capsule Take 14,000 Units by mouth in the morning.Active ferrous sulfate 325 (65 Fe) MG tablet Take 325 mg by mouth in the morning. Take with meals.06/15/2022ctive amoxicillin (Amoxil) 500 MG tablet Indications:S/P total knee arthroplasty, right4 tabs PO once 30-60 mins before procedure with food 4 tablet 5Active Active Problems ProblemNoted DateDiagnosed DateStatus post right knee hpbliqyhese39/11/2023 Obesity (BMI 30-39.9)01/03/2023Unilateral primary osteoarthritis, right knee 3Persistent disorder of initiating or maintaining sleep01/03/2023 Xmhlcysfmhc39/02/2023Mixed /24/0051Uobimvybpz99/16/2021 Mcxudetxkswmzw70/31/2021Osteoarthritis of knee12/27/2020ifficulty walking 12/16/2020dema of foot10/17/20209776Uboyilmd08/16/2021Iron deficiency anemia 08/29/2020Impaired fasting owxeyzd2908/27/2020Urinary jixnhurygxud73/26/2021 Contracture, right ankle03/01/2020Primary ovarian nmskvde4301/19/2020Morton's neuroma of right foot12/18/2019Arthritis of right knee08/26/2019Long term current use of shpijoi8803/12/2019Osteoarthritis of left knee01/17/2018Obstructive sleep apnea09/27/2017Chronic etctckz2306/06/2017Chronic fatigue hinaibpq59/03/2018 Arthralgia of lower leg10/23/2016Pain in right knee10/23/2016Vitamin D widiatkzmu80/18/2016Insulin onlawnjrfn52/17/2016Chronic diastolic heart failure 07/21/2015Peripheral venous zbzboljbdurcj19/17/5798Wleqgjk98/17/2016Urge incontinence of urine07/21/2015 Encounters DateTypeDepartmentCare YhzhEjtmawqgclh24/14/2025 8:55 AM EDTAncillary Procedure [facility] [place] [address] 03/17/2025 8:30 AM EDTOffice Visit [facility] [place] [address] Jr. Micheal Trujillo, DO Acute pain of right knee; Pslboqvrah51/14/2025amboo flowsheet [facility] [place] [address] Jr. Micheal Trujillo, DO 03/17/20251713Jhdptg02/11/2025Telephone [facility] [address] [place] [address] Jr. Micheal Trujillo, DO dental appointmentfrom Last 3 Months Immunizations ImmunizationAdministration DatesNext DueHib / Hep B008/13/2008,11/28/2007 Influenza, High-dose Seasonal, Quadrivalent, Preservative Free02/16/2021 Influenza, Rzuryhsvkep15/31/2022Influenza, injectable, quadrivalent, preservative free02/21/2021,02/23/2020,04/01/2018,03/11/2018Influenza, seasonal, gacjtkgcpn70/15/2013Influenza, seasonal, injectable, preservative free06/22/2017 Influenza, trivalent, gqyvrdjfrm90/01/2019,04/03/2019Moderna SARS-CoV-2 Yxdkvqmhhoc50/24/2021Pneumococcal Conjugate PCV 13002/23/2020Pneumococcal Polysaccharide CHXR4777,04/04/2019Td (adult), 5 Lf tetanus toxoid, preservative free, dwtaughp41/21/2014Zoster, Efmfgyltbhb95/30/2018,12/21/2017 Zoster, live07/25/2015 Family History Medical HistoryRelationNameCommentsNo Known ProblemsBrother2 brothersNo Known ProblemsDaughter2 daughtersCancerFatherbloodCancerMotherNo Known ProblemsSister RelationNameStatusCommentsBrotherDaughterAliveFatherAliveMotherDeceased (Age 37) Sister Social History Tobacco UseTypesPacks/DayYears UsedDateSmoking Tobacco: NeverSmokeless Tobacco: Never Tobacco Cessation:Counseling Given: Not Answered Alcohol UseStandard Drinks/WeekCommentsYes0 (1 standard drink = 0.6 oz pure alcohol)Alcohol: 1 or 2 drinks on typical day/monthly or less. 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 Micheal Trujillo C, DO [address] [place] [address] Health MaintenanceDue DateLast DoneCommentsCT Nesguqbjvfdp1954FIT-DNA 02/02/19547078Qglaabhooxagl04/01/9698Tzcbxxekk30, 12/18/2018, 12/18/2018, Additional history kxxlmtLFM35/, 07/19/2022FOBT olonoscopy/10/2013Colorectal Cancer Screening 10/07/2023Influenza Vaccine (#1)/, 04/13/2023, 04/03/2022, Additional history existsPneumococcal Vaccine: 65+ IvcrzDmxnkywlj59/21/2020, 02/23/2020, 04/04/2019 Procedures Procedure NamePriorityDate/TimeAssociated DiagnosisCommentsXR KNEE 1-2 VIEWS EMNVFWpagqab57/14/2025 8:50 AM EDT Acute pain of right knee BI MAMMOGRAM SCREENING TOMOSYNTHESIS HWLOHMTCWBdvxfcp26/18/2020 XKKXZBNORTGWdaajpa47/05/2014 12:00 PM EDT from Last 3 Months [...] arthroplasty. Authorizing ProviderResult TypeResult StatusJr. Micheal Trujillo [facility] XR PROCEDURESFinal Result * Bilateral screening mammogram with tomosynthesis (01/20/2020)Anatomical Region LateralityModalityBreastBilateralMammographySpecimen (Source)Anatomical Location / LateralityCollection Method / VolumeCollection TimeReceived Time Narrative 01/20/2020 12:00 AM EDT PERFORMED AT [facility] LOCATION:[place] [address] Patient: ? AMPARO Campbell ? Exam Date: ? 01/20/2020 : ? 1955 ?Gender:F ? Ordering : ? DR ERNST PINTO . ? Admission #: ? [id number] Family : ?Order #: ? [id number] ? CLICK HERE TO VIEW EXAM RADIOLOGY REPORT PROCEDURE: ? MAMMOGRAM BILATERAL SCREENING DIGITAL WITH COMPUTER AIDED DETECTION COMPARISON: ? MG MAMM SCREEN AMANDA W CAD 12/18/2018. INDICATIONS: ? Screening mammography Calculator Name ? NCI Breast Cancer Risk Assessment Tool 5 Year Breast Cancer Risk ? 3.50% Lifetime Breast Cancer Risk ? 12.70% Personal Breast Cancer ?No Personal Ovarian Cancer ? No Treatments ? None Family Cancers ? Mother with hodgkins cancer at age 34. LOCATION: ? The BREAST COMPOSITION: ? Heterogeneously dense ?which may obscure small masses. FINDINGS: DIAGNOSTIC CATEGORY 2--BENIGN FINDING NO CHANGE FROM COMPARISON ASSESSMENT. Bilateral round mole markers. ??Left linear scar marker. ??Scattered benign-appearing nodules are present. ??Scattered benign-appearing calcifications are present. ??Scattered benign-appearing lymph nodes are present. LEFT BREAST: ??No significant suspicious finding. RECOMMENDATIONS: ROUTINE MAMMOGRAM AND CLINICAL EVALUATION IN 12 MONTHS. PLEASE NOTE: ??A NORMAL MAMMOGRAM DOES NOT EXCLUDE THE POSSIBILITY OF BREAST CANCER. ??A CLINICALLY SUSPICIOUS PALPABLE LUMP SHOULD BE BIOPSIED. Dictated by: Elio Michael MD on 01/20/2020 at 11:14 Approved by: Elio Michael MD on 01/20/2020 at 11:27 Procedure Note CONVERSION, GENERIC - 12/08/2022 PERFORMED AT [facility] LOCATION:[place] [address] Patient: AMPARO Campbell Exam Date: 01/20/2020 : 1955 Gender:F Ordering : DR ERNST PINTO . Admission #: [id number] Family : Order #: [id number] CLICK HERE TO VIEW EXAM RADIOLOGY REPORT [...] hodgkins cancer at age 33. LOCATION: The BREAST COMPOSITION: Heterogeneously dense which may obscure [...] Elio Michael MD on 01/20/2020 at 11:27 Authorizing ProviderResult TypeResult StatusEdcarlos enrique Pinto MDIMG BI PROCEDURES Final Result * Colonoscopy (10/06/2013 12:00 PM EDT)Anatomical RegionLateralityModality EndoscopySpecimen (Source)Anatomical Location / LateralityCollection Method / VolumeCollection TimeReceived Time10/06/2013 12:00 PM EDT Narrative 10/06/2013 12:00 PM EDT PERFORMED AT [facility] LOCATION:[id number] Negative Procedure Note CONVERSION, GENERIC - 10/19/2022 PERFORMED AT [facility] LOCATION:[id number] Negative Authorizing ProviderResult TypeResult StatusEdcarlos enrique Pinto MDENDOSCOPY PROCEDURE ORDERABLESFinal Result from Last 3 Months or Most Recently Relevant to Health [place] [address] Care Teams Team MemberRelationshipSpecialtyStart DateEnd Date Pedro Herrera MD [address] [facility], [place] [address] PCP - GeneralFamily Sbioqohb21/8/25
--- OUTSIDE RECORDS SUMMARY | 2025-03-27 10:37 | XMS_ITS | Clinical Summary ---
Author Organization [facility] Address [id number] [place] [address] Care Team Providers Care Fuse Cup Expander Name Role Phone Sharon Pedro Ayoub DO Primary Care Provider Allergies No known active allergies Medications MedicationSigDispense QuantityRefillsLast FilledStart DateEnd DateStatus biotin 10,000 mcg capsule 1 capsule.Active calcium citrate (CALCITRATE) 200 mg (950 mg) tablet Take 1 tablet (200 mg total) by mouth in the morning and 1 tablet (200 mg total) at noon and 1 tablet (200 mg total) before bedtime.Active inoyajpl-ajs-IW-lycopen-lutein (CENTRUM SILVER) 0.4 mg-300 mcg- 250 mcg tablet See Admin Instructions.Active cholecalciferol (VITAMIN D3) 250 mcg (10,000 unit) capsule Take 1 capsule (10,000 Units total) by mouth.Active oxybutynin XL (DITROPAN XL) 15 mg 24 hr tablet TAKE 1 TABLET BY MOUTH TWICE DAILY 180 tablet 4Active atorvastatin (LIPITOR) 20 mg tablet Take 1 tablet (20 mg total) by mouth in the morning. 90 tablet 4Active metFORMIN (GLUCOPHAGE) 500 mg tablet TAKE 1 TABLET BY MOUTH ONCE DAILY 90 tablet 5Active levothyroxine (SYNTHROID, LEVOTHROID) 50 MCG tablet TAKE 1 TABLET BY MOUTH IN THE MORNING 90 tablet 5Active levothyroxine (SYNTHROID, LEVOTHROID) 50 MCG tablet TAKE 1 TABLET BY MOUTH IN THE MORNING 90 tablet Discontinued Active Problems ProblemNoted DateDiagnosed ViijHgacyozeofhx41/10/2023Status post right knee bnzxkqchcna24/11/2563Lhiilurslw02/10/2023Localized osteoarthritis of right knee 01/11/2023Obesity (BMI 30-39.9)01/03/2023Mixed sqhupzltvjqrva40/24/2022 Qkvpscezbg79/16/9376Iyoiliyousvnvj99/31/2021Osteoarthritis of knee12/27/2020 Difficulty uqhxyaf2212/16/2020dema of foot10/17/2020ersistent tydsudrv70/16/2021 Iron deficiency zccafx1308/29/2020Urinary xndfflhvzpyi61/26/2021Impaired fasting tkcxbll9508/27/2020ontracture, right ankle03/01/2020Primary ovarian failure 01/19/2020Morton's neuroma of right foot12/18/2019Arthritis of right knee 08/26/2019Primary osteoarthritis of left knee01/17/2018Obstructive sleep apnea 09/27/2017Chronic vkqezer7506/06/2017Arthralgia of lower leg10/23/2016Sleep /22/2016Vitamin D bzehojaxlo57/18/2016Insulin udzdauoebq99/17/2016 Peripheral venous veyyltqbkvaqb63/17/2016Urge incontinence of urine07/21/2015 Resolved Problems ProblemNoted DateDiagnosed DateResolved DatePain in right knee10/23/2016 01/17/20242879Oyfolhm61 Encounters DateTypeDepartmentCare TzjqRggslqoxbyi19/22/2025Orders Only [facility] [address] [place] [phone] Ref Prov, Not In System 03/17/20258408Diexui39/02/2025Refill [facility] [address] [place] [address] Pedro Herrera DO from Last 3 Months Immunizations ImmunizationAdministration DatesNext DueCOVID-19, mRNA, LNP-S, PF, 100mcg/0.5mL Dose07/29/2020,07/28/2020Hep B / HIB03/05/2009,11/28/2007Influenza (IM) Preservative Free06/22/2017Influenza High Dose Preservative Free IM03/31/2024 Influenza Vaccine, Quadrivalent, Eommzvvkmv00/10/2023,04/03/2022Influenza, High- dose, Kqshrqelhjzv65/15/2021Influenza, Im Trivalent Iinrrrexnohs29/15/2013 Influenza, Injectable, quadrivalent (PF)02/21/2021,02/23/2020,04/01/2018, 03/11/2018Influenza, Trivalent, Vgiajeapvf07/01/2019,04/03/2019Influenza, Pndphhxzujr37/31/2022neumococcal Conjugate 13-Pyninw7102/23/2020Pneumococcal Ijwegtzlpwvryz20/21/2020,04/04/2019Td (adult), 5 Lf tetanus toxoid, preservative free, qrtgnine50/21/2014Zoster Live07/25/2015Zoster Vaccine Recombinant 03/03/2018,12/21/2017 Family History Medical HistoryRelationNameCommentsNo Known ProblemsDaughter 1Multiple sclerosis Daughter 2Alzheimer's diseaseFatherLeukemiaFatherPneumoniaFatherCovidHodgkin's lymphomaMotherdied at age 34No Known ProblemsSisterRelationNameStatusComments Daughter 1AliveDaughter 2AliveFatherDeceasedHalf Brother 1AliveHalf Brother 2 AliveMotherDeceasedSisterAlive Social History Tobacco UseTypesPacks/DayYears UsedDateSmoking Tobacco: NeverSmokeless Tobacco: Never Tobacco Cessation:Counseling Given: Not Answered Alcohol UseStandard Drinks/WeekCommentsYes0 (1 standard drink = 0.6 oz pure alcohol)OccasionalAHC UtilitiesAnswerDate RecordedIn the past 12 months has the [employer], [employer], or water [employer] threatened to shut off services in your home?No10/10/2023Social Connection and Isolation PanelAnswerDate RecordedIn a typical week, how many times do you talk on the phone with family, friends, or neighbors?More than three times a week09/28/2022How often do you get together with friends or relatives?Twice a week09/28/2022How often do you attend baptist or mandaen services?More than 4 times per year09/28/2022o you belong to any clubs or organizations such as baptist groups, unions, fraternal or athletic pelra ups, or school groups?No09/28/2022How often do you attend meetings of the clubs or organizations you belong to?Never09/28/2022re you , , , , never , or living with a partner?Hurkgzu9809/28/2022 AUDIT-CAnswerDate RecordedQ1: How often do you have [...] and heating?Not hard at all09/28/2022 PHQ-2AnswerDate RecordedTotal Jfwju037Finshriners [facility] [place] of Occupational Health - Occupational Stress QuestionnaireAnswerDate [...] a household?No09/28/2022hildcareAnswerDate RecordedDo problems 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 Strongly Agree09/28/2022CommentsNoSex and Gender InformationValueDate RecordedSex Assigned at BirthNot on fileLegal OirVtlmmb90/06/2015 11:48 AM EDT Gender IdentityNot on fileSexual OrientationNot on file Last Filed Vital Signs Vital SignReadingTime TakenCommentsBlood Jfkagitf730/8207 1:35 PM EDT Zfimb590810/03/2024 10:30 AM BXISxfetxonpfy39.1 ??C (97 ??F)10/03/2024 10:30 AM EDTRespiratory Lpom879210/03/2024 10:30 AM EDTOxygen Plmzbovtbi66%10/03/2024 10:30 AM EDTInhaled Oxygen Concentration--Nzbuow19.1 kg (187 lb 11.2 oz)12/11/2024 1:35 PM CIHZhncrt898.5 cm (5' 2 )12/11/2024 1:35 PM EDTBody Mass Index34.33 12/11/2024 1:35 PM EDT Plan of Treatment DateTypeDepartmentCare Team (Latest Contact Info)Vhonmlnvjdf53/28/2025 8:15 AM EDTAppointment [facility] [address] [address] Tqgzscgjrn90/20/2025 1:15 PM ESTOffice Visit [facility] [address] [place] [address] Pedro Herrera, DO [address], [place] [address] 12/15/2025 3:00 PM EDTOffice Visit [facility] [address] [place] [address] Health MaintenanceDue DateLast DoneCommentsDTaP,Tdap and Td Vaccines (2 - Td or Tdap)/COVID-19 Vaccine (2024- season)2025 01/12/2022, 04/03/2021, 08/25/2020, Additional history existsInfluenza Vaccine , 04/13/2023, 04/03/2022, Additional history existsMammogram , 04/03/2023, 03/06/2022, Additional history existsAdult BMI Follow Up Plan/07/2024Tobacco Qdmgljoaj03/dult BMI Vdnpierir09/03/2025Depression Lbaopiscx28/03/2025Fall Risk Ruyqmsaqg35/03/2025Medicare Annual Wellness Visit/03/2025, 12/11/2023, 09/28/20223969Odrigrgeosj90, 10/13/2020, 10/06/2013, Additional history existsZoster (Shingles) CjwjbgnKiqgvsvtw87/30/2018, 12/21/2017, 07/25/2015 Medical Devices Not on file Procedures Procedure NamePriorityDate/TimeAssociated DiagnosisCommentsHM COLONOSCOPYRoutine 03/25/2025 10:06 AM EDTHM AAMPYLJUNICGqitrvw26/30/2024 11:12 AM EDT from Last 3 Months or Most Recently Relevant to Health Maintenance Results * HM COLONOSCOPY (03/25/2025 10:06 AM EDT) Narrative Authorizing ProviderResult TypeResult StatusNot In System Ref ProvHEALTH MAINTENANCEFinal ResultPerforming OrganizationAddressCity/State/ZIP CodePhone Number MANUALLY TRANSCRIBED RESULTS * HM MAMMOGRAPHY (04/02/2024 11:12 AM EDT)Anatomical RegionLateralityModality Other Narrative Authorizing ProviderResult TypeResult StatusNot In System Ref ProvHEALTH MAINTENANCEFinal Result from Last 3 Months or Most Recently Relevant to Health Maintenance Insurance Care Teams Team MemberRelationshipSpecialtyStart DateEnd Date Pedro Herrera DO [address] [place] [address] PCP - GeneralFamily Medicine10/12/20
--- OUTSIDE RECORDS SUMMARY | 2025-03-27 10:37 | XMS_ITS | Clinical Summary ---
Author Organization [facility] Address [address] [place] [id number] Care Team Providers Care Malt Loader Name Role Phone Pedro Herrera DO Primary Care Provider Gabo Pearce MD Unavailable [phone] Allergies No known active allergies Medications MedicationSigDispense QuantityRefillsLast FilledStart DateEnd DateStatus atorvastatin (LIPITOR) 10 mg tablet 06/06/2022ctive Biotin 10,000 mcg cap 1 capsule.Active calcium citrate (CALCITRATE) 200 mg (950 mg) tab Active Cholecalciferol, Vitamin D3, 250 mcg (10,000 unit) cap Take by mouth. Takes 14,000units dailyActive SYNTHROID 50 mcg tablet 05/06/2022ctive metFORMIN (GLUCOPHAGE) 500 mg tablet 06/06/2022ctive MV with Pbd-Nbpqqtpm-Mdcihk (CENTRUM SILVER) 0.4 mg-300 mcg- 250 mcg tab See Admin Instructions.Active oxybutynin ER (DITROPAN XL) 15 mg 24 hr Extended Rel Tab 05/06/2022ctive Active Problems ProblemNoted DateDiagnosed DateIron (Fe) deficiency wbjmwv5305/19/2024 Encounters DateTypeDepartmentCare KvcmGwclzmjdpwv63/22/2025Telephone Cancer Appts [address] [place] [address] Suzie Delgadillo, PAFrankC Patient Bzxtkvuv93/11/2025 9:00 AM [facility] Hematology/Oncology [address] [place] [address] [place] [address] Iron deficiency anemia, unspecified iron deficiency anemia type (Primary Dx) 01/05/2025 9:40 AM [facility] Hematology/Oncology [address] [place] [address] [place] [address] [place], Chair 4 Iron deficiency anemia, unspecified iron deficiency anemia type (Primary Dx) 12/29/2024 9:[address] [facility] Hematology/Oncology [address] [place] [address] [place] [address] [place], Chair 4 Iron deficiency anemia, unspecified iron deficiency anemia type (Primary Dx)from Last 3 Months Immunizations ImmunizationAdministration DatesNext DueHaemophilus influenzae b-hepatitis B (Hib-HepB) vaccine (COMVAX)08/13/2008,11/28/2007influenza (HD-IIV3) vaccine, age 65+ yr, high dose, trivalent, PF (FLUZONE HIGH-DOSE)03/31/2024influenza (HD- IIV4) vaccine, age 65+ yr, high dose, quadrivalent, PF (FLUZONE HIGH-DOSE) 02/16/2021influenza (IIV3) vaccine, trivalent (AFLURIA, FLULAVAL, FLUVIRIN, FLUZONE)04/18/2013influenza (IIV3) vaccine, trivalent, PF (AFLURIA, FLUARIX, FLULAVAL, FLUVIRIN, FLUZONE)06/22/2017influenza (IIV4) vaccine, age 6 mo - 64 yr, quadrivalent, PF (AFLURIA, FLUARIX, FLULAVAL, FLUZONE)02/21/2021,02/23/2020, 04/01/2018,03/11/2018influenza (aIIV3) vaccine, age 65+ yr, trivalent, PF (FLUAD)04/04/2019,04/03/2019influenza (aIIV4) vaccine, age 65+ yr, quadrivalent, PF (FLUAD QUAD)04/13/2023,2pneumococcal conjugate (PCV13) vaccine, 13 valent (PREVNAR 13)02/23/2020pneumococcal polysaccharide (PPV23) vaccine, 23 valent (PNEUMOVAX 23)02/23/2020,04/04/2019tetanus diphtheria (Td) vaccine, age 7+ yr, 5 Lf tetanus, PF (TENIVAC)04/21/2014zoster (RZV) vaccine, recombinant (SHINGRIX)03/03/2018,12/21/2017zoster (ZVL) vaccine, live (ZOSTAVAX)07/25/2015 Family History Medical HistoryRelationCommentsLeukemiaFatherHodgkin LymphomaMotherRelation StatusCommentsFatherDeceasedMotherDeceased Social History Tobacco UseTypesPacks/DayYears UsedDateSmoking Tobacco: NeverPassive Smoke Exposure: NeverSmokeless Tobacco: Never Tobacco Cessation:Counseling Given: Not Answered Alcohol UseStandard Drinks/WeekCommentsYes0 (1 standard drink = 0.6 oz pure alcohol)occasionalPHQ-2AnswerDate RecordedPHQ-2 rkdco2465Area Deprivation IndexAnswerDate RecordedNational Score (1-100), lower number is lower risk63 03/31/2024State Score (1-10), lower number is lower kbzu290ata from: https://www.neighborhoodatlas.[facility].edu/. Last address used for emrzkyrzjfu[address] [facility] 4CommentsNoSex and Gender InformationValueDate RecordedSex Assigned at BirthNot on fileLegal SexFemale 04/30/2013 11:04 AM ESTGender IdentityNot on fileSexual OrientationNot on file Last Filed Vital Signs Vital SignReadingTime TakenCommentsBlood Dmqersbd438/7408 9:17 AM EDT Cnybd3312 9:17 AM QLSPafllmudyzw54.7 ??C (98.1 ??F)01/12/2025 9:17 AM EDTRespiratory Hlrs551801/12/2025 9:17 AM EDTOxygen Rmpbaozqxt72%01/12/2025 9:17 AM EDTInhaled Oxygen Concentration--Pomosq62.8 kg (186 lb 15.2 oz)12/22/2024 8:30 AM EJCGjjsij633.6 cm (5' 2.84 )09/17/2024 10:35 AM EDTBody Mass Index33.29 09/17/2024 10:35 AM EDT Plan of Treatment DateTypeDepartmentCare Team (Latest Contact Info)Aghewuqnixi28/17/2025 9:00 AM ESTVisit (SP) Office Hematology/Oncology [address] [place] [address] Soraya Madison APRN.OIL DISTRIBUTOR TENDER [address] [place] [address] 3 month follow up after lab04/20/2025 9:30 AM ESTInfusion Center Hematology/Oncology [address] [place] [address] 3 month follow up after labHealth MaintenanceDue DateLast DoneCommentsAnxiety Hmtnrozve92/01/1972Depression Nwyaouotr35/01/1972Hepatitis C Zfrdnoend81/01/1972 CT Nqipxhaokxbu51/01/1999Cologuard (FIT-DNA)02/02/19996187Pbxlwsyvgaffg62/01/1999 DTaP,Tdap,Td Vaccine (1 - Tdap)Colonoscopy10/06/2014 10/06/2013Mammogram Sypufszau22/, 01/20/2020, 12/18/2018, Additional history existsColorectal Cancer Fvkypijia05/15/2024Fecal Occult Blood /, 07/19/2022dvance Directive Jnlfuxciih44/01/2025Medicare Advantage Annual Wellness Visit06/04/2024ovid-19 Vaccine ( season) 508/04/2022, 04/03/2021, 08/25/2020, Additional history existsInfluenza Vaccine (#1)/, 04/13/2023, 04/03/2022, Additional history existsDiabetes Mmdccdjgx45/16/969910/, 05/15/2024, 03/31/2024, Additional history existsLipid Tgrbcwunw99/08/167597/01/2024, 04/13/2023RSV Vaccine (1 - 1- dose 75+ series)2029Shingrix DnzbxhdNopsizdqf37/30/2018, 12/21/2017, 02/21/2016Pneumococcal Vaccine: 50+Wwxnonfgd31/21/2020, 02/23/2020, 04/04/2019 Bone Density FpvbjvpqjYkwgfbhjh12/24/2024, 12/04/2019 Procedures Procedure NamePriorityDate/TimeAssociated DiagnosisCommentsCOMPREHENSIVE METABOLIC YNGVSUxutjhm55/16/2025 9:46 AM EDT Iron deficiency anemia, unspecified iron deficiency anemia type IMMUNOASSAY, FECAL OCCULT FUEFFFlmulqe61/15/2023 12:00 PM EST Iron deficiency anemia, unspecified iron deficiency anemia type from Last 3 Months or Most Recently Relevant to Health Maintenance Results * COMPREHENSIVE METABOLIC PANEL (09/17/2024 9:46 AM EDT)ComponentValueRef Range Test MethodAnalysis TimePerformed AtPathologist SignatureProtein, Total6.96.3 - 8.0 g/dL09/17/2024 10:37 AM [facility]TNORT[facility] LABAlbumin 4.33.9 - 4.9 g/dL09/17/2024 10:37 AM [facility]TNORT[facility] Calcium, Total10.18.5 - 10.2 mg/dL09/17/2024 10:37 AM [facility] LABBilirubin, Total0.50.2 - 1.3 mg/dL09/17/2024 10:37 AM EDT [facility] LABAlkaline Jwhbxxuozrv75717 - 123 U/L 09/17/2024 10:37 AM [facility] NIMBRC8671 - 35 U/L 09/17/2024 10:37 AM [facility]TNORT[facility] AJWLDU204 - 38 U/L 09/17/2024 10:37 [facility] DRHJxgdlvb6227 - 99 mg/dL09/17/2024 10:[address] [facility] LABComment: The [place] Diabetes Association (ADA) provides guidance for cutoff values for fasting glucose andrandom glucose. The ADA defines fasting as no [...] Standards of Medical Care in Diabetes 2016, [place] Diabetes Association. Diabetes Care. 2016.39(Suppl 1). LKP524 - 21 mg/dL09/17/2024 10:[address] [facility] Creatinine0.830.58 - 0.96 mg/dL09/17/2024 10:[address] [facility] RXTSybbmu706541 - 144 mmol/L09/17/2024 10:[address] [facility] LABPotassium4.33.7 - 5.1 mmol/L09/17/2024 10:[address] [facility] PBDIbygnica25526 - 107 mmol/L09/17/2024 10:[address] [facility] JMGLC47094 - 30 mmol/L09/17/2024 10:37 AM [facility] LABAnion Kqu709 - 15 mmol/L09/17/2024 10:[address] [facility] LABEstimated Glomerular Filtration Rate76 >=60 mL/min/1.73m 09/17/2024 10:[address] [facility] LABComment:Estimated Glomerular Filtration Rate (eGFR) is calculated using the 2020 CKD-EPI creatinine equation. This equation utilizes serum creatinine, sex, and age as parameters. The creatinine assay has traceable calibration to isotope dilution- mass spectrometry. Refer to KDIGO guidelines for clinical interpretation. In patients with unstable renal function, e.g. those with acute kidney injury, the eGFRmay not accurately reflect actual GFR.Specimen (Source)Anatomical Location / LateralityCollection Method / VolumeCollection TimeReceived TimeBloodBLOOD SPECIMEN / UnknownVenipuncture / Azoehav1209/17/2024 9:46 AM EDT09/17/2024 9:46 AM EDT Narrative Authorizing ProviderResult TypeResult StatusSuzie CONWAY-CLABORATORYFinal ResultPerforming OrganizationAddressCity/State/ZIP CodePhone Number [facility] [address] [place] [address] * FECAL OCCULT BLOOD TEST (07/19/2022 12:00 PM EST)ComponentValueRef RangeTest MethodAnalysis TimePerformed AtPathologist SignatureOccult Blood, Stool DowhminiMxdmtaol73/20/2023 10:17 AM ESTGU[facility] Specimen (Source)Anatomical Location / LateralityCollection Method / Volume Collection TimeReceived TimeStool RandomSTOOL SPECIMEN / Wwcealp1707/19/2022 12:00 PM EST07/22/2022 3:14 AM EST Narrative [facility] - 07/24/2022 10:17 AM EST This test was developed and its performance characteristics determined by [facility]'s [facility] Pathology [facility] Laboratory Medicine [place] ([facility]). It has not been cleared or approved by the FDA. [facility] is regulated under CLIA as qualified to perform high-complexity testing. This test is used for clinical purposes. It should not be regarded as investigational or for research. Authorizing ProviderResult TypeResult StatusBrdav Vital MDLABORATORY Final ResultPerforming OrganizationAddressCity/State/ZIP CodePhone Number [facility] [address] [address], from Last 3 Months or Most Recently Relevant to Health Maintenance Insurance Care Teams Team MemberRelationshipSpecialtyStart DateEnd Date Pedro HerreraDO [address] [facility] [place] [address] PCP - GeneralFamily Medicine06/16/22 Gabo Pearce MD [address] [place] [phone] Family Medicine06/21/22
--- OUTSIDE RECORDS SUMMARY | 2025-03-27 10:37 | XMS_ITS | Encounter Summary ---
Author Organization [facility] Address [address] [place] [address] Care Team Providers Care Rabbit Fancier Name Role Phone Pedro Herrera MD Primary Care Provider [phone] Encounter Details DateTypeDepartmentCare Team (Latest Contact Info)Jaectwtweni62/14/2025Bamboo flowsheet [facility] [address] [place] [address] Jr. Micheal Trujillo, DO [address] [place] [address] Social History Tobacco UseTypesPacks/DayYears UsedDateSmoking Tobacco: NeverSmokeless Tobacco: NeverAlcohol UseStandard Drinks/WeekCommentsYes0 (1 standard drink = 0.6 oz pure alcohol)Alcohol: 1 or 2 drinks on typical day/monthly or less. 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 Micheal Trujillo, DO [address] [place] [address] documented as of this encounter Visit Diagnoses Not on filedocumented in this encounter Care Teams Team MemberRelationshipSpecialtyStart DateEnd Date Pedro Herrera MD [address] [facility], [place] [address] PCP - GeneralFamily Ayamytjk75/8/25documented as of this encounter
--- OUTSIDE RECORDS SUMMARY | 2025-03-27 10:39 | XMS_ITS | CCD ---
Author Organization [facility] Care Team Providers Care Nocturnist Physician Name Role Phone Lynettelogillian Pedro MONROY Primary Care Provider Ramses ANTUNEZ, [...] Castillo Consulting Unavailable CARLEE, WERNER Consulting Unavailable EVA, [...] Deluca Consulting Unavailable WEST, DR MAYANK Castillo Admcarlos Unavailable WEST, DR MAYANK Castillo Attending Unavailable FURLONG, DR PEDRO Ayoub Primary Care Unavailable WEST, DR MAYANK Castillo Consulting Unavailable WEST, DR MAYANK Castillo Admcarlos Unavailable [...] FURLONG, DR PEDRO Ayoub Primary Care Unavailable FURNG, DR PEDRO Ayoub Consulting Unavailable WEST, DR MAYANK Castillo Consulting Unavailable FURLONG, DR PEDRO Ayoub Primary Care Unavailable WEST, DR MAYANK Castillo Attending Unavailable WEST, DR MAYANK Castillo Admcralos Unavailable ZIEBER, DR CANDICE Deluca Consulting Unavailable SCOTT Dobson Attending Provider Pedro Rodriguez MD Primary Care Provider PEDRO RODRIGUEZ Referring Unavailable [facility] Primary Care Unavailable [place], PEDRO Ayoub Referring Unavailable FURNG, PEDRO Ayoub Primary Care Unavailable Somis Pedro MONROY [facility] Primary [facility] Provider Pedro Rodriguez DO Primary Care Provider [phone] PEDRO RODRIGUEZ Attending Unavailable FURLONG, PEDRO Ayoub Referring Unavailable FURLONG, PEDRO Ayoub Primary Care Unavailable FURLONG, PEDRO Ayoub Attending Unavailable FURLONG, PEDRO Ayoub Referring Unavailable FURLONG, PEDRO Ayoub Primary Care Unavailable FURLONG, PEDRO Ayoub Referring Unavailable FURLONG, PEDRO Ayoub Primary Care Unavailable Furlong , Pedro Ayoub Primary Care Provider LynetteloPedro french DO Primary Care Provider [phone] Kavitha ANTUNEZ, Keith Attending Provider ABHYANKAR, NARCISO Referring Unavailable FURLONG, PEDRO GRETA Primary Care Unavailab le ABHYANKAR, NARCISO Referring Unavailable FURLONG, PEDRO GRETA Primary Care Unavailab le FURLONG, PEDRO GRETA Primary Care Unavailab le SUZIE PATEL Attending Unavailable FURLONG, PEDRO GRETA Referring Unavailab le ABHYANKAR, NARCISO Referring Unavailable FURLONG, PEDRO GRETA Primary Care Unavailab le FURLONG, PEDRO GRETA Primary Care Unavailab SUZIE Garcia Attending Unavailable FURLONG, PEDRO GRETA Referring Unavailab le ABHYANKAR, NARCISO Referring Unavailable FURLONG, PEDRO GRETA Primary Care Unavailab le FURLONG, PEDRO GRETA Primary Care Unavailab le FURLONG, PEDRO GRETA Referring Unavailab le FURLONG, PEDRO GRETA Primary Care Unavailab SUZIE Garcia Attending Unavailable FURLONG, PEDRO GRETA Referring Unavailab [...] Attending Unavailable FURLONG, PEDRO GRETA Referring Unavailab PEDRO Hagan Primary Care Unavailab rossi NARCISO AGUILAR Referring Unavailable PEDRO RODRIGUEZ Primary Care Unavailab Pedro Hagan MD Primary Care Provider KRISHNA TRUJILLO JR Referring Unavailabl e PEDRO RODRIGUEZ Primary Care Unavailable SILVESTRE SERNA Attending Unavailable JR. TRUJILLO GEORGE C Attending Unavaila ble JR. TRUJILLO GEORGE C Referring Unavaila Keith Freeman MD Other Provider Asaabhay, Keith Attending Unavailable Keith Plummer Admitting Unavailable Pedro Rodriguez Primary Care Unavailable Medications Current Medications MedicationDrug Class(es)DatesSig (Normalized)Sig (Original)amoxicillin 500 mg oral tablet (7 sources)Penicillin-class AntibacterialStart: 78-99-5994thte 4 tablets by mouth once at mealtimeamoxicillin (Amoxil) 500 MG tablet Indications: S/P total knee arthroplasty, right 4 tabs PO once 30-60 mins before procedure with food 4 tablet 3 02/12/2025 Activeaspirin 81 mg delayed release oral tablet (20 sources)Platelet Aggregation Inhibitor, Nonsteroidal Anti-inflammatory Drug take 1 tablet by mouth in the morningaspirin 81 MG EC tablet Take 81 mg by mouth in the morning. Active End: 03-23-2621aamuskh 81 mg chewable tablet Chew 1 tablet (81 mg total) and swallow in the morning. 10/03/2024 Discontinued (Therapy completed) End: 54-50-0635pauj 81 mg by mouth once dailyaspirin (ASPIR-81 ORAL) Take 81 mg by mouth once daily. 09/17/2024 Discontinued (Discontinued by Patient)Comment on above:Take 81 mg by mouth once daily.atorvastatin 20 mg oral tablet (20 sources)HMG-CoA Reductase InhibitorStart: 80-39-1060aqnf 1 tablet by mouth in the morningatorvastatin (LIPITOR) 20 mg tablet Take 1 tablet (20 mg total) by mouth in the morning. 90 tablet 3 05/26/2024 ActiveStart: 60-26-3048xtzg 1 tablet by mouth in the morningatorvastatin (LIPITOR) 20 mg tablet TAKE 1 TABLET BY MOUTH IN THE MORNING 90 tablet 3 04/25/2024 ActiveStart: 04-17-2023 End: 14-39-9596xydn 1 tablet by mouth once dailyAtorvastatin 20 mg tablet Active 20 MG PO Daily January 16, 2024 12:00am Complies with drug therapyStart: 81-26-3730jyuy 1 tablet by mouth in the morningatorvastatin (Lipitor) 10 MG tablet Take 1 tablet by mouth in the morning. 06/06/2022 ActiveLipitor Active biotin 10 mg oral tablet (20 sources)biotin 44545 MCG tablet 1 capsule 1 (one) time each day at the same time. Activebiotin 10,000 mcg capsule 1 capsule. ActiveBiotin ActiveComment on above:1 capsule.Calcium Carbonate (11 sources)Calcium Carbonate (CALCIUM 600 PO) Take by mouth. ActiveCalcium Carbonate (CALCIUM 600 PO) Take by mouth. 0 Activecalcium citrate 950 mg oral tablet (20 sources)calcium citrate (CALCITRATE) 200 mg (950 mg) tablet Take 1 tablet (200 mg total) by mouth in the morning and 1 tablet (200 mg total) at noon and 1 tablet (200 mg total) before bedtime. ActiveCalcium Citrate ActiveCentrum Silver (5 sources)Centrum Silver Activecholecalciferol 0.35 mg oral capsule (20 sources)Vitamin Dtake 1 capsule by mouth in the morningcholecalciferol (Vitamin D-3) 350 MCG (44564 UT) capsule Take 14,000 Units by mouth in the morning.Activecholecalciferol (VITAMIN D3) 250 mcg (10,000 unit) capsule Take 1 capsule (10,000 Units total) by mouth. Activetake 1 capsule by mouth once daily Cholecalciferol, Vitamin D3, 250 mcg (10,000 unit) cap Take by mouth. Takes 14,000units daily ActiveComment on above:Take 10,000 Units by mouth.Iron (5 sources)Iron Activelevothyroxine sodium 0.05 mg oral tablet (20 sources)l-ThyroxineStart: 05-06-2022 End: 60-56-8319ruoq 1 tablet by mouth once dailyLevothyroxine 50 mcg tablet Active 50 MCG PO Daily January 16, 2024 12:00am Complies with drug therapy Levothyroxine Sodium ActivemetFORMIN hydrochloride 500 mg oral tablet (20 sources)BiguanideStart: 06-06-2022 End: 90-65-8433pdtu 1 tablet by mouth once dailyMetformin 500 mg tablet Active 500 MG PO Daily January 16, 2024 12:00am Complies with drug therapymetFORMIN HCl Gcmkussdwswlyf-gpz-ZK-lycopen-lutein (CENTRUM SILVER) 0.4 mg-300 mcg- 250 mcg tablet (20 sources)thxktixu-aig-RX-lycopen-lutein (CENTRUM SILVER) 0.4 mg-300 mcg- 250 mcg tablet See Admin Instructions. Kdxkskemjbdtfx-ljw-DD-lycopen-lutein (CENTRUM SILVER) 0.4 mg-300 mcg- 250 mcg tablet See Admin Instructions. 0 Active vrqtsepxeinw-nday-uamocewt-folic acid (Centrum Silver, geriatric,) tablet (11 sources)dedgrlcnttls-nxpo-vayhkqvg-folic acid (Centrum Silver, geriatric,) tablet as directed Orally Aqpkcyjsdvenwqqtsf-exuo-ozbjramx-folic acid (Centrum Silver, geriatric,) tablet as directed Orally 0 ActiveMV with Eth-Nmynythp-Igxxyl (CENTRUM SILVER) 0.4 mg-300 mcg- 250 mcg tab (20 sources)MV with Qhm-Bcxhbhrf-Bkxeke (CENTRUM SILVER) 0.4 mg-300 mcg- 250 mcg tab See Admin Instructions. ActiveMV with Vrm-Eivqevbm-Yuwkjm (CENTRUM SILVER) 0.4 mg-300 mcg- 250 mcg tab See Admin Instructions. 0 ActiveComment on above:See Admin Instructions.nitrofurantoin, macrocrystals 25 mg / nitrofurantoin, monohydrate 75 mg oral capsule (7 sources)Nitrofuran AntibacterialStart: 33-95-5009cwlv 1 capsule by mouth every twelve hoursMacrobid 100 MG 1 cap(s) Orally bid for 5 day(s) Apr, Ibyfhh50 hr oxybutynin chloride 15 mg extended release oral tablet (20 sources)Cholinergic Muscarinic AntagonistStart: 77-71-2103jtkn 1 tablet by mouth once dailyOxybutynin Chloride 15 mg tablet extended release 24hr Active 15 MG PO Daily January 16, 2024 12:00am Complies with drug therapyStart: 10-20-2022 End: 00-36-8217bliu 1 tablet by mouth twice dailyoxybutynin XL (DITROPAN XL) 15 mg 24 hr tablet TAKE 1 TABLET BY MOUTH TWICE DAILY 180 tablet 3 01/28/2024 ActiveStart: 92-35-0928kfjsfkcaaa ER (DITROPAN XL) 15 mg 24 hr Extended Rel Tab 05/06/2022 ActiveoxyBUTYnin ActiveOxybutynin Activepantoprazole 40 mg delayed release oral tablet (1 source)Proton Pump InhibitorStart: 36-62-3483zwbf 1 tablet by mouth twice dailypredniSONE 20 mg oral tablet (15 sources)Start: 01-16-2024 End: 19-29-2361bdgyzdUTFJ (DELTASONE) 20 mg tablet 01/16/2024 10/03/2024 Discontinued (Therapy completed)Start: 13-62-2227brhi 1 tablet by mouth every twelve hourspredniSONE 20 MG 1 tablet Orally 2 times a day for 5 day(s) Apr, Not-TakingVitamin D3 (5 sources)Vitamin D3 Active Completed/Discontinued Medications MedicationDrug Class(es)DatesSig (Normalized)Sig (Original)azithromycin 250 mg oral tablet (5 sources)Macrolide AntimicrobialStart: 39-40-3904Acqwzzmphbxg 250 MG 2 tablet on the first day, then 1 tablet daily for 4 days Orally Once a day for5 day(s) Apr, Not-Takingferrous sulfate 325 mg oral tablet (20 sources)Start: 06-15-2022 End: 38-83-0660iygb 1 tablet by mouth once dailyFerrous Sulfate (Feosol) 325 mg (65 mg iron) tablet Discontinued 325 MG PO Daily January 16, 2024 12:00am February 18, 2025 1:39pmStart: 06-15-2022 End: 57-76-6652uzqh 1 tablet by mouth once daily at breakfastFEROSUL 325 mg (65 mg iron) tablet Take 1 tablet by mouth daily with breakfast. 06/15/2022 09/17/2024 Discontinued (Discontinued by Patient) End: 09-99-4445tcsv 1 tablet by mouth every other dayferrous sulfate 325 (65 FE) mg EC tablet Take 1 tablet (325 mg total) by mouth every other day. 10/03/2024 Discontinued (Therapy completed)take 1 tablet by mouth once daily at breakfast ferrous sulfate 325 (65 FE) mg EC tablet Take 1 tablet (325 mg total) by mouth daily with breakfast. ActiveComment on above:Take 1 tablet by mouth daily with breakfast.5 ml iron sucrose 20 mg/ml injection (5 sources)Parenteral Iron ReplacementStart: 06-19-2024 End: 05-87-1827864 mg, INTRAVENOUS, ONCE, 1 dose, On Lexy 06/19/24 at 1530, Please conduct a 30 minute post dose observation.Start: 06-13-2024 End: 47-82-3075378 mg, INTRAVENOUS, ONCE, 1 dose, On Sun06/13/24 at 1330, Please conduct a 30 minute post dose observation.Start: 06-06-2024 End: 92-45-8315743 mg, INTRAVENOUS, ONCE, 1 dose, On Sun06/06/24 at 1300, Please conduct a 30 minute post dose observation.Start: 05-30-2024 End: 34-45-8859686 mg, INTRAVENOUS, ONCE, 1 dose, On Sun05/30/24 at 1000, Please conduct a 30 minute post dose observation.Start: 05-22-2024 End: 59-96-5329892 mg, INTRAVENOUS, ONCE, 1 dose, On Lexy 05/22/24 at 1330, Please conduct a 30 minute post dose observation.iron sucrose 300 mg in NaCl 0.9% 250 mL (VENOFER) (3 sources)Start: 01-12-2025 End: 70-91-7063036 mg, INTRAVENOUS, at 166.67 mL/hr, Administer over 90 Minutes, ONCE, 1 dose, On Sun01/12/25 at 0930, RefrigerateStart: 01-05-2025 End: 41-96-6220193 mg, INTRAVENOUS, at 166.67 mL/hr, Administer over 90 Minutes, ONCE, 1 dose, On Sun01/05/25 at 1000, RefrigerateStart: 12-29-2024 End: 44-59-5514986 mg, INTRAVENOUS, at 166.67 mL/hr, Administer over 90 Minutes, ONCE, 1 dose, On Sun12/29/24 at 0930, Refrigeratephenazopyridine hydrochloride 200 mg oral tablet (5 sources)Start: 38-85-0747ysyj 1 tablet by mouth every eight hoursPyridium 200 MG 1 tablet after meals Orally Three times a day for 2 day(s) October, Not-Takingvitamin b12 0.1 mg oral tablet (20 sources)Vitamin B12 End: 04-33-5218binmubtbhxcbha (VITAMIN B-12) 100 mcg tab Take 100 mcg by mouth. 09/17/2024 Discontinued (Discontinued by Patient)Comment on above:Take 100 mcg by mouth. 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]03-72-8759XaumsexQfgccqwlb of lipid metabolism (20 sources)Mixed hyperlipidemia; Translations: [Mixed hyperlipidemia]Onset: 89-80-9334VupgdepEoyrximoo hypertension (1 source)Hypertensive disorderOnset: 51-38-2819XvbgdvcCwnrshuadvavh symptoms and ill-defined conditions (20 sources)Urge incontinence of urine; Translations: [Urge incontinence]Onset: 115751-64-4009FhqysadItorckprcqakb symptoms and ill-defined conditions (8 sources)Dysuria; Translations: [Hematuria, unspecified]EpisodicMalaise and fatigue (20 sources)Fatigue; Translations: [Chronic fatigue, unspecified]Onset: 672038-14-1427EnmjdrzBykcqfzglg disorders (20 sources)Primary ovarian failure; Translations: [Other primary ovarian failure]Onset: 276209-06-3571CrujlbxWxxtdwyrfbh deficiencies (20 sources)Vitamin D deficiency; Translations: [Vitamin D deficiency, unspecified]Onset: 144524-61-3370ZkfsznhJbexchxgpojiry (20 sources)Arthritis of right knee; Translations: [Unilateral primary osteoarthritis, right knee]Onset: 443221-51-1535TswypqpOmyzt acquired deformities (20 sources)Contracture of joint of right ankle; Translations: [Contracture, right ankle]Onset: 560381-66-4731ImiggixMniwl connective tissue disease (2 sources)History of right total knee replacement; Translations: [Presence of right artificial knee joint]40-78-0962ExouupuOkhgj connective tissue disease (20 sources)History of total knee arthroplasty; Translations: [Presence of right artificial knee joint]Onset: 738071-11-4527FzufpgdTgpxt diseases of veins and lymphatics (20 sources)Lymphedema; Translations: [Lymphedema, not elsewhere classified] Onset: 657725-39-9689HncylxxMhtyg diseases of veins and lymphatics (1 source)Lymphedema, not elsewhere classified; Translations: [Lymphedema, not elsewhere classified]Onset: 25-20-0118XhddswnMzofc endocrine disorders (1 source)Diabetes insipidus; Translations: [Diabetes insipidus]06-19-2023 ChronicOther inflammatory condition of skin (20 sources)Rosacea; Translations: [Rosacea, unspecified]Onset: 07-21-2015 Resolved: 572227-80-4860RolimatEcqoo nervous system disorders (20 sources)Difficulty walking; Translations: [Difficulty in walking, not elsewhere classified]Onset: 847434-91-8324CapeqblShozj nervous system disorders (20 sources)Mortons neuroma of right foot; Translations: [Lesion of plantar nerve, right lower limb]Onset: 216226-90-8642JitulwmTdrfx nervous system disorders (1 source)Poor concentration; Translations: [Attention and concentration deficit]34-03-2384WzngtxjZisza non-traumatic joint disorders (20 sources)Pain in right knee; Translations: [Pain in joint, lower leg]Onset: 10-23-2016 Resolved: 946878-61-9742GdhwfwmyTbyev nutritional; endocrine; and metabolic disorders (20 sources)Insulin resistance; Translations: [Insulin resistance]Onset: 765690-74-5755BfajvawYoyrf nutritional; endocrine; and metabolic disorders (20 sources)Body mass index 30+ - obesity; Translations: [Obesity, unspecified] Onset: 283816-59-6492BbjwxalAdgus nutritional; endocrine; and metabolic disorders (20 sources)Hypocalcemia; Translations: [Hypocalcemia]Onset: 04-13-2023 86-43-4186ZtdueewDjiqz nutritional; endocrine; and metabolic disorders (1 source)Obesity caused by energy imbalance; Translations: [Class 1 obesity due to excess calories with serious comorbidity and body mass index (BMI) of 32.0 to 32.9 in adult]25-47-4006MhxscuxUnzjo nutritional; endocrine; and metabolic disorders (1 source)Obesity, unspecified; Translations: [Obesity, unspecified]Onset: 19-13-3212HrbttehDognr skin disorders (2 sources)Seborrheic keratosis; Translations: [Other seborrheic keratosis] 53-82-4721CenmsqlfJmyyv skin disorders (2 sources)Inflamed seborrheic keratosis; Translations: [Inflamed seborrheic keratosis]91-82-0806GnpmjaenMpgdofkr codes; unclassified (20 sources)Obstructive sleep apnea syndrome; Translations: [Obstructive sleep apnea (adult) (pediatric)]Onset: 177740-36-4792KydlumiLucammdm codes; unclassified (1 source)Obstructive sleep apnea (adult) (pediatric); Translations: [Obstructive sleep apnea (adult) (pediatric)]Onset: 28-70-2922FmdpqyfYmpvfmrj codes; unclassified (1 source)Localized edema; Translations: [Localized edema]Onset: 10-03-2024 EpisodicScreening and history of mental health and substance abuse codes (2 sources)Patient encounter status; Translations: [Encounter for screening for depression]19-97-7742VamfmnoxFisazcm disorders (20 sources)Hypothyroidism, unspecified; Translations: [Hypothyroidism]Onset: 925904-63-5436VahvzarLpnyhgvfxqyc (1 source)discuss ironOnset: 61-50-9430Irqkxxu tract infections (5 sources)Urinary tract infection, site not specified; Translations: [Acute cystitis with hematuria]Episodic Past or Other Problems Problem ClassificationProblemDateDocumented DateEpisodic/ChronicAllergic reactions (1 source)Allergic contact dermatitis caused by plant material; Translations: [Allergic contact dermatitis due to plants, except food]30-07-7203Yseanlhs Deficiency and other anemia (5 sources)Iron deficiency anemia, unspecified; Translations: [IRON DEFICIENCY ANEMIA UNSPECIFIED]Onset: 18-01-6619NiruyfjyAeljdyffst and other anemia (3 sources)Other iron deficiency anemias; Translations: [OTHER IRON DEFICIENCY ANEMIAS]Onset: 79-58-2791MzrjhqshHtdmcjakdn and other anemia (2 sources)Iron deficiency anemia secondary to inadequate dietary iron intake; Translations: [Other iron deficiency anemias]33-32-1255HeofqgtnNhbtmkcuuv and other anemia (1 source)Iron deficiency anemia due to dietary causes; Translations: [Other iron deficiency anemias]23-69-6628SlklimivOatirxhf mellitus without complication (20 sources)Prediabetes; Translations: [Hyperglycemia, unspecified]Onset: 358273-85-4179MeqbcqveTjfly and electrolyte disorders (4 sources)Hyperosmolality and hypernatremia; Translations: [HYPEROSMOLALITY AND HYPERNATREMIA]Onset: 85-67-9778BbvjawhhPxvfref and fatigue (1 source)Fatigue; Translations: [Other fatigue]27-89-8099SadlimlaAcyy disorders (20 sources)Mood disordersOnset: 01-17-2024 Resolved: Other aftercare (11 sources)Long-term current use of insulin; Translations: [terminologist (current) use of insulin]Onset: 563385-83-9408QgemhuclWlyod bone disease and musculoskeletal deformities (20 sources)Osteopenia; Translations: [Other specified disorders of bone density and structure, unspecified site]Onset: 811613-48-8653EiyszkrjLapzz diseases of veins and lymphatics (20 sources)Peripheral venous insufficiency; Translations: [Venous insufficiency (chronic) (peripheral)]Onset: 604924-46-9453PyyikoqnQfkja lower respiratory disease (4 sources)Dyspnea, unspecified; Translations: [DYSPNEA UNSPECIFIED]Onset: 70-46-8695RlthttfhWfbmm non-traumatic joint disorders (20 sources)Pain in lower limb; Translations: [Pain in unspecified knee]Onset: 169542-27-0004CsohpapfPoqrq screening for suspected conditions (not mental disorders or infectious disease) (4 sources)Encounter for screening mammogram for malignant neoplasm of breast; Translations: [ENC SCR MAMMO MALIG NEOPLASM BREAST]Onset: 72-77-1226Vcsnmxtq Phlebitis; thrombophlebitis and thromboembolism (4 sources)Phlebitis and thrombophlebitis of superficial vessels of right lower extremity; Translations: [PHLEBITIS AND TP SUP VES RT LOW EXT]Onset: 05-05-2022 EpisodicResidual codes; unclassified (1 source)Family history of other malignant neoplasms of lymphoid, hematopoietic and related tissues; Translations: [FAM HX OTH MAL SHANIQUA LYMPH HEMATPOETC]Onset: 20-87-6047LkytlhmoJnaeonwf codes; unclassified (20 sources)Edema of foot; Translations: [Localized edema]Onset: 10-17-2020 75-57-3618BfzobdipWggncfpc codes; unclassified (11 sources)Insomnia; Translations: [Insomnia, unspecified]Onset: 10-17-2020 64-93-9600KxrpvnmgLldyryod codes; unclassified (20 sources)Persistent insomnia; Translations: [Insomnia, unspecified]Onset: 570547-38-7917KyflhzwdPpiqegnr codes; unclassified (20 sources)Sleep disorder; Translations: [Sleep disorder, unspecified]Onset: 021790-35-1421HgggepkkHmysddwq codes; unclassified (1 source)Postmenopausal state; Translations: [Asymptomatic menopausal state] 64-17-6226DvqeuvxdPhxblwsmcrbo (20 sources)Onset: 04-13-2023 Resolved: 030923-10-4292Iusqddhd veins of lower extremity (4 sources)Varicose veins of bilateral lower extremities with pain; Translations: [VARICOSE VNS AMANDA LOW EXTREMW/PAIN]Onset: 86-15-2441Rzkloqng Results Test NameValueInterpretationReference RangeFacilityGlucose Poct Glucometerson 45-73-3419Jpjhnsz5Xax5: [facility] Physician GroupComment on above:Result Comment: PERFORMED BY: [facility] [place] [address] PATHOLOGIST CONSUMER INSIGHTS SPECIALIST NII REYNA M.D.Performed By: #### GLULS #### Point of Care testing ,Glucose [Mass/Vol]89 mg/dLNormalThe Firelands Physician GroupComment on above: Result Comment: Random Glucose Reference Range is dependent on time and content of last meal. Glucose of more than 200 mg/dL in a nonstressed, ambulatory subject supports the diagnosis of Diabetes Mellitus.Performed By: #### GLULS #### Point of Care testing ,XR Knee - right 1 or 2 Viewson 50-29-4113Rucaine Result: AP and lateral of right knee [...] dislocation. Impression: Unremarkable right total knee arthroplasty. [facility]Rad[facility] observation (narrative)[facility] CenterCNPNon [id number] (NCCAP) SHAUNA CHRISTENSEN ([id number]) 1955 F Date Time Provider Department 02/23/25 SUZIE PATEL NCCMADI During your visit today, we recorded the following information about you: Vivian Link 02/23/2025 10:11 AM Signed Shauna Christensen is calling today regarding Discussion about being referred to Dr Khan. She may want to see a different GI doctor. Patient has been identified by name and birthdate. Person calling: self Please return the call at [phone] Vivian Link, Silvestre Cesar, RN 02/23/2025 11:22 AM Signed Pt did [...] continue as planned. Encouraged to talk to [facility], with any questions, concerns she may have. She was thankful for discussion and denies further needs from our care team at this time. Silvestre Aguiar RN Allergies As of Date: 02/23/2025 (No Known Allergies) Date Reviewed: 12/29/2024 Reviewed by: Jenna Bolton RN - Fully Assessed Reason for Visit: Patient Question [1477] Prescriptions as of 02/23/2025 - atorvastatin (LIPITOR) 10 mg tablet - Biotin 10,000 mcg cap 1 capsule. - calcium citrate (CALCITRATE) 200 mg (950 mg) tab - Cholecalciferol, Vitamin D3, 250 mcg (10,000 unit) cap Take by mouth. Takes 14,000units daily - SYNTHROID 50 mcg tablet - metFORMIN (GLUCOPHAGE) 500 mg tablet - MV with Ctc-Jimkbnfw-Ialdgj (CENTRUM SILVER) 0.4 mg-300 mcg- 250 mcg tab See Admin Instructions. - oxybutynin ER (DITROPAN XL) 15 mg 24 hr Extended Rel Tab Problem List As Of Date 02/23/2025 Noted Resolved Iron (Fe) deficiency anemia [D50.9] 05/19/2024 Encounter Status:Closed by SILVESTRE AGUIAR on 02/23/25NoPaulding County HospitalCNOVSPon 84-01-8871IISZRNEtwgw ([place]) Office ([place]) SHAUNA CHRISTENSEN ([id number]) 1955 F Date Time Provider Department 12/22/24 [...] metFORMIN (GLUCOPHAGE) 500 mg tablet MV with Brp-Bigviaxp-Mfdzqz (CENTRUM SILVER) 0.4 mg-300 mcg- 250 mcg [...] dated 12/17/2024 reviewed and are scanned in [facility] ASSESSMENT/PLAN: 1. Iron deficiency anemia - ICD9: 280.9, ICD10: D50.9 (primary diagnosis) The patient was initially diagnosed with iron deficiency anemia after developing a COVID infection in August (more content not included)...[facility] RehabilitationCNPNon [id number] (NCCAP) SHAUNA CHRISTENSEN ([id number]) 1955 F Date Time Provider Department 12/22/24 SUZIE PATEL During your visit today, we [...] Date Reviewed: 12/22/2024 Reviewed by: Suzie Patel, PAFrankC - Fully Assessed Reason for Visit: Future [...] (GLUCOPHAGE) 500 mg tablet - MV with Xny-Xyimehrq-Brxmxd (CENTRUM SILVER) 0.4 mg-300 mcg- 250 mcg tab See Admin Instructions. - oxybutynin ER (DITROPAN XL) 15 mg 24 hr Extended Rel Tab Problem List As Of Date 12/22/2024 Noted Resolved Iron (Fe) deficiency anemia [D50.9] 05/19/2024 Encounter Status:Closed by FANI DAVIS on 12/25/24[facility]onADELAIDAangela 12-24-4100UHEEMsydwlfem (HEMASA) SHAUNA CHRISTENSEN ([id number]) 1955 F Date Time Provider Department 12/15/24 SILVESTRE AGUIAR During your visit today, we recorded the following information about you: Silvestre Aguiar RN 12/15/2024 2:49 PM Signed Labs faxed to [facility] to complete Sunday/Sunday this week for MM appt 12/22/24. Regina: Please watch for results JAI GramajoLECOM [facility] - [facility] HospitalTabby 12/18/2024 8:31 AM Signed Labs are [...] Fully Assessed Reason for Visit: Lab Orders [5911] Prescriptions as of 12/23/2024 - atorvastatin (LIPITOR) 10 mg tablet - Biotin 10,000 mcg cap 1 capsule. - calcium citrate (CALCITRATE) 200 mg (950 mg) tab - Cholecalciferol, Vitamin D3, 250 mcg (10,000 unit) cap Take by mouth. Takes 14,000units daily - SYNTHROID 50 mcg tablet - metFORMIN (GLUCOPHAGE) 500 mg tablet - MV with Hrb-Slkdoeax-Loioyo (CENTRUM SILVER) 0.4 mg-300 mcg- 250 mcg tab See Admin Instructions. - oxybutynin ER (DITROPAN XL) 15 mg 24 hr Extended Rel Tab Problem List As Of Date 12/15/2024 Noted Resolved Iron (Fe) deficiency anemia [D50.9] 05/19/2024 Encounter Status:Closed by SILVESTRE AGUIAR on 12/15/24NormalCWright-Patterson [facility] W Auto Differential panel (Bld)on 19-28-8453Ntachwhbb (Bld) [#/Vol] 10*3/uLNormal<0.11CTrinity Health System [facility] on above:Order Comment: Specimen Type: BLOOD SPECIMENOrdering Facility: [facility] Address:[address] [place], [place] [address]Performed By: #### 42245-5 ####[facility] LABCLIA [id number] [place], [place] [address]Fimwtdksw/100 WBC (Bld)0.3 %NormalMercy Hospital on above:Order Comment: Specimen Type: BLOOD SPECIMENOrdering Facility: [facility] Address:[address] [place], [place] [address]Performed By: #### 83349-8 ####[facility] LABCLIA [id number] [place], [place] [address]Gwbpkvrdbttj cell count method Nom (Bld)AutoNormalCTrinity Health System [facility] on above:Order Comment: Specimen Type: BLOOD SPECIMENOrdering Facility: [facility] Address:[address] [place], [place] [address]Performed By: #### 86840-5 ####[facility] LABCLIA [id number] [place], [place] [address]Ofelmcnubzi (Bld) [#/Vol]0.08 10*3/uLNormal<0.46[facility] on above:Order Comment: Specimen Type: BLOOD SPECIMENOrdering Facility: [facility] Address:[address] [place], [place] [address]Performed By: #### 92697-4 ####[facility] LABCLIA [id number] [place], [place] [address]Rbdqlkytxqb/100 WBC (Bld)1.3 %NormalMercy Hospital on above:Order Comment: Specimen Type: BLOOD SPECIMENOrdering Facility: [facility] Address:[address] [place], [place] [address]Performed By: #### 33508-0 ####[facility] LABCLIA [id number] [place], [place] [address]Xgiaqnjcuud distribution width (RBC) [Ratio]12.9 %Normal 11.5-15.0[facility] on above:Order Comment: Specimen Type: BLOOD SPECIMENOrdering Facility: [facility] Address:[address] [place], [place] [address]Performed By: #### 18039-1 ####[facility] LABIA [id number] [place] [address] Hematocrit (Bld) [Volume fraction]41.1 %Bcpsoi70.0-46.0[facility] on above:Order Comment: Specimen Type: BLOOD SPECIMENOrdering Facility: [facility] Address:[address] [place], [place] [address]Performed By: #### 17441-1 ####[facility] LABIA [id number] [place], [place] [address]Pttcohfjdj (Bld) [Mass/Vol]13.5 g/jQLxwhjr64.5-15.5CTrinity Health System [facility] on above:Order Comment: Specimen Type: BLOOD SPECIMENOrdering Facility: [facility] Address:[address] [place], [place] [address]Performed By: #### 35931-2 ####[facility] LABCLIA [id number] [place], [place] [address]Cfihfkll granulocytes (Bld) [#/Vol]0.04 10*3/uLNormal <0.10[facility] on above:Order Comment: Specimen Type: BLOOD SPECIMENOrdering Facility: [facility] Address:[address] [place], [place] [address]Performed By: #### 29479-9 ####[facility] LABCLIA [id number] [place], [place] [address]Bgwxeezz granulocytes/100 WBC (Bld)0.7 %NormalMercy Hospital on above: Order Comment: Specimen Type: BLOOD SPECIMENOrdering Facility: [facility] Address:[address] [place], [place] [address]Performed By: #### 39818- 8 ####[facility] LABCLIA [id number] [place], [place] [address]Unvnufajhui (Bld) [#/Vol]1.69 10*3/uLNormal1.00-4.00 [facility] on above:Order Comment: Specimen Type: BLOOD SPECIMENOrdering Facility: [facility] Address:[address] [place], [place] [address]Performed By: #### 24377-0 ####[facility] LABIA [id number] [place], [place] [address]Rubcfqsoxvz/100 WBC (Bld)28.3 %NormalMercy Hospital on above:Order Comment: Specimen Type: BLOOD SPECIMENOrdering Facility: [facility] Address:[address] [place], [place] [address]Performed By: #### 18880-8 ####[facility] LABIA [id number] [place], [place] [address]INS (RBC) [Entitic mass]29.4 daLybkub66.0-34.0[facility] on above:Order Comment: Specimen Type: BLOOD SPECIMENOrdering Facility: [facility] Address:[address] [place], [place] [address]Performed By: #### 78425-4 ####[facility] LABCLIA [id number] [place], [place] [address]GXUF (RBC) [Mass/Vol]32.8 g/iCTevvya71.5-36.0[facility] on above: Order Comment: Specimen Type: BLOOD SPECIMENOrdering Facility: [facility] Address:[address] [place], [place] [address]Performed By: #### 36622- 8 ####[facility] LABCLIA [id number] [place], [place] [address]NQJ (RBC) [Entitic vol]89.5 mAKoahnf71.0-100.0[facility] on above:Order Comment: Specimen Type: BLOOD SPECIMENOrdering Facility: [facility] Address:[address] [place], [place] [address]Performed By: #### 36528-0 ####[facility] LABIA [id number] [place], [place] [address]Jsghdtgtm (Bld) [#/Vol]0.52 10*3/uLNormal<0.87[facility] on above:Order Comment: Specimen Type: BLOOD SPECIMENOrdering Facility: [facility] Address:[address] [place], [place] [address]Performed By: #### 31536- 8 ####[facility] LABCLIA [id number] [place], [place] [address]Fsqeenctf/100 WBC (Bld)8.7 %NormalMercy Hospital on above:Order Comment: Specimen Type: BLOOD SPECIMENOrdering Facility: [facility] Address:[address] [place], [place] [address]Performed By: #### 80285-7 ####[facility] LABCLIA [id number] [place], [place] [address]Dtjsoogqfvp (Bld) [#/Vol]3.62 10*3/uLNormal1.45-7.50[facility] on above:Order Comment: Specimen Type: BLOOD SPECIMENOrdering Facility: [facility] Address:[address] [place], [place] [address]Performed By: #### 89025-0 ####[facility] LABCLIA [id number] [place], [place] [address]Tkhgwonkfte/100 WBC (Bld)60.7 %NormalMercy Hospital on above:Order Comment: Specimen Type: BLOOD SPECIMENOrdering Facility: [facility] Address:[address] [place], [place] [address]Performed By: #### 88156-8 ####[facility] LABCLIA [id number] [place], [place] [address]Ukudlfffe RBC (Bld) [#/Vol] 10*3/uLNormal<0.01[facility] on above:Order Comment: Specimen Type: BLOOD SPECIMENOrdering Facility: [facility] Address:[address] [place], [place] [address]Performed By: #### 67446-2 ####[facility] LABCLIA [id number] [place], [place] [address]Pdcykvlec RBC/100 WBC (Bld) [Ratio]0.0 /100 WBCNormal [facility] on above:Order Comment: Specimen Type: BLOOD SPECIMENOrdering Facility: [facility] Address:[address] [place], [place] [address]Performed By: #### 64273-5 ####[facility] LABIA [id number] [place], [place] [address]Ylizrkko mean volume (Bld) [Entitic vol]9.8 fLNormal9.0-12.7CTrinity Health System [facility] on above:Order Comment: Specimen Type: BLOOD SPECIMENOrdering Facility: [facility] Address:[address] [place] [address] Performed By: #### 17586-1 ####[facility] LABCLIA [id number] [place], [place] [address]Rgdyleavp (Bld) [#/Vol]281 10*3/jYPvovpq722-015WpsxrhzuyMercy Hospital on above:Order Comment: Specimen Type: BLOOD SPECIMENOrdering Facility: [facility] Address:[address] [place], [place] [address]Performed By: #### 67818-9 ####[facility] LABIA [id number] [place], [place] [address]QPH (Bld) [#/Vol]4.59 10*6/uLNormal3.90-5.20[facility] on above:Order Comment: Specimen Type: BLOOD SPECIMENOrdering Facility: [facility] Address:[address] [place], [place] [address]Performed By: #### 03912-8 ####[facility] LABIA [id number] [place], [place] [address]MDA (Bld) [#/Vol]5.97 10*3/uLNormal3.70-11.00[facility] on above: Order Comment: Specimen Type: BLOOD SPECIMENOrdering Facility: [facility] Address:[address] [place], [place] [address]Performed By: #### 79058- 8 ####[facility] LABIA [id number] [place], [place] [address]QUFQZVex 34-87-0096XWVPFUHpqxz (SP) Office (HEMASA) HSAUNA CHRISTENSEN ([id number]) 1955 F Date Time Provider Department 09/17/24 [...] metFORMIN (GLUCOPHAGE) 500 mg tablet MV with Zyf-Abafuzdq-Oxpkvq (CENTRUM SILVER) 0.4 mg-300 mcg- 250 mcg [...] August 2020. Prior to (more content not included)...NormalChildren'S Hospital For RehabilitationCNPNon 50-54-5873ZHJSMssprtrlh (NCCAP) SHAUNA CHRISTENSEN ([id number]) 1955 F Date Time Provider Department 09/17/24 SUZIE PATEL During your visit today, we recorded the following information about you: ColinangelaGreer 09/17/2024 11:14 AM Signed Patient requested her labs in December be done at [facility] prior to follow up. Gave patient orders today. Greer Erazo Allergies As of Date: 09/17/2024 (No Known Allergies) Date Reviewed: 09/17/2024 Reviewed by: Suzie Patel PA-C - Fully Assessed Reason for Visit: Lab Orders [1053] Prescriptions as of 09/17/2024 - atorvastatin (LIPITOR) 10 mg tablet - Biotin 10,000 mcg cap 1 capsule. - calcium citrate (CALCITRATE) 200 mg (950 mg) tab - Cholecalciferol, Vitamin D3, 250 mcg (10,000 unit) cap Take by mouth. Takes 14,000units daily - SYNTHROID 50 mcg tablet - metFORMIN (GLUCOPHAGE) 500 mg tablet - MV with Ucm-Lqcshelo-Nwipme (CENTRUM SILVER) 0.4 mg-300 mcg- 250 mcg tab See Admin Instructions. - oxybutynin ER (DITROPAN XL) 15 mg 24 hr Extended Rel Tab Problem List As Of Date 09/17/2024 Noted Resolved Iron (Fe) deficiency anemia [D50.9] 05/19/2024 Encounter Status:Closed by GREER ERAZO on 09/17/24NormalCVan Wert County HospitalComprehensive metabolic 2000 panelon 38-28-7592Fsfshbr [Mass/Vol]4.3 g/dLNormal3.9-4.9CTrinity Health System [facility] on above:Order Comment: Specimen Type: BLOOD SPECIMENOrdering Facility: [facility] Address:[address] [place], [place] [address]Performed By: #### 81262-6 ####[facility] LABCLIA [id number] [place], [place] [address]FXV [Catalytic activity/Vol]104 U/MEwvebb74-634NnlngfucrMercy Hospital on above:Order Comment: Specimen Type: BLOOD SPECIMENOrdering Facility: [facility] Address:[address] [place], [place] [address]Performed By: #### 64075-0 ####[facility] LABCLIA [id number] [place], [place] [address]IAD [Catalytic activity/Vol]19 U/LNormal7-38[facility] on above:Order Comment: Specimen Type: BLOOD SPECIMENOrdering Facility: [facility] Address:[address] [place], [place] [address]Performed By: #### 79907- 8 ####[facility] LABCLIA [id number] [place], [place] [address]Worge gap [Moles/Vol]11 mmol/LNormal8-15[facility] on above:Order Comment: Specimen Type: BLOOD SPECIMENOrdering Facility: [facility] Address:[address] [place], [place] [address]Performed By: #### 07604-9 ####[facility] LABCLIA [id number] [facility] [place], [place] [address]SAM [Catalytic activity/Vol]21 U/YReolhb81-96DpogfmrgrMercy Hospital on above:Order Comment: Specimen Type: BLOOD SPECIMENOrdering Facility: [facility] Address:[address] [place], [place] [address]Performed By: #### 44963-4 ####[facility] LABCLIA [id number] [facility] [place] [address] Bilirubin [Mass/Vol]0.5 mg/dLNormal0.2-1.3CTrinity Health System [facility] on above:Order Comment: Specimen Type: BLOOD SPECIMENOrdering Facility: [facility] Address:[address] [place], [place] [address]Performed By: #### 50737-0 ####[facility] LABCLIA [id number] [facility] [place], [place] [address]Ndtllxs [Mass/Vol]10.1 mg/dLNormal8.5-10.2CTrinity Health System [facility] on above:Order Comment: Specimen Type: BLOOD SPECIMENOrdering Facility: [facility] Address:[address] [place], [place] [address]Performed By: #### 89338-6 ####[facility]ENTER[facility] LABCLIA [id number] [facility] [place], [place] [address]Qvresdlt [Moles/Vol]106 mmol/NHwqbzo71-977AalbagjkhMercy Hospital on above: Order Comment: Specimen Type: BLOOD SPECIMENOrdering Facility: [facility] Address:[address] [place], [place] [address]Performed By: #### 61235- 8 ####[facility] LABCLIA [id number] [facility] TEGAN SMITHPHOEN[facility] CHIL[facility] H[place]ITALLEXY[place], [place] [address]UG4 [Moles/Vol]27 mmol/VTkttly43-63HrwvxemkyMercy Hospital on above:Order Comment: Specimen Type: BLOOD SPECIMENOrdering Facility: [facility] Address:[address] [place], [place] [address]Elnynxlvk By: #### 82773-5 ####[facility] LABIA [id number] [place], [place] [address]Ahafueuppx [Mass/Vol]0.83 mg/dL Normal0.58-0.96[facility] on above:Order Comment: Specimen Type: BLOOD SPECIMENOrdering Facility: [facility] Address:[address] [place], [place] [address]Performed By: #### 20424-5 ####[facility] LABCLIA [id number] [place], [place] [address]Ljcneqmkze and Glomerular filtration rate.predicted panel (S/P/Bld)76 mL/min/1.73m???Normal>=60[facility] on above:Order Comment: Specimen Type: BLOOD SPECIMENOrdering Facility: [facility] Address:[address] [place], [place] [address]Result Comment: Estimated Glomerular Filtration Rate (eGFR) is calculated using the 2020 CKD-EPI creatinine equation. This equation utilizes serum creatinine, sex, and age as parameters. The creatinine assay has traceable calibration to isotope dilution- mass spectrometry. Refer to KDIGO guidelines for clinical interpretation. In patients with unstable renal function, e.g. those with acute kidney injury, the eGFR may not accurately reflect actual GFR.Performed By: #### 20896-7 ####[facility] LABIA [id number] [place], [place] [address]Ffprind [Mass/Vol]97 mg/oIQlqhvk32-38CgvhzvdadMercy Hospital on above:Order Comment: Specimen Type: BLOOD SPECIMENOrdering Facility: [facility] Address:[address] [place], [place] [address]Result Comment: The [place] Diabetes Association (ADA) provides guidance for cutoff values for fasting glucose and random glucose. The ADA defines fasting as no caloric intake for at least 8 hours. Fasting plasma glucose results between 100 to 125 mg/dL indicate increased risk for diabetes (prediab etes). Fasting plasma glucose results greater than or [...] Standards of Medical Care in Diabetes 2016, [place] Diabetes Association. Diabetes Care. 2016.39(Suppl 1).Performed By: #### 49261-4 ####[facility] LABCLIA [id number] [place], [place] [address]Uojxtylwj [Moles/Vol]4.3 mmol/LNormal3.7-5.1CTrinity Health System [facility] on above:Order Comment: Specimen Type: BLOOD SPECIMENOrdering Facility: [facility] Address:[address] [place], [place] [address]Performed By: #### 68571-7 ####[facility] LABIA [id number] [place], [place] [address]Zngpdpi [Mass/Vol]6.9 g/dLNormal6.3-8.0[facility] on above:Order Comment: Specimen Type: BLOOD SPECIMENOrdering Facility: [facility] Address:[address] [place], [place] [address]Performed By: #### 01686- 8 ####[facility] LABCLIA [id number] [place], [place] [address]Dfcday [Moles/Vol]144 mmol/OTsvxkx735-303MroeuoranMercy Hospital on above:Order Comment: Specimen Type: BLOOD SPECIMENOrdering Facility: [facility] Address:[address] [place], [place] [address]Performed By: #### 16735-9 ####[facility] LABIA [id number] [place], [place] [address]Ydpz nitrogen [Mass/Vol]17 mg/dLNormal7-21[facility] on above:Order Comment: Specimen Type: BLOOD SPECIMENOrdering Facility: [facility] Address:[address] [place], [place] [address]Performed By: #### 60791-7 ####[facility]FFORDMAR[facility]A [facility] LABCLIA [id number] [place], [place] [address]Vtzfdvza SerPl-mCncon 07-62-7668Cmdognsz [Mass/Vol]101.0 ng/jLAhbbxp16.7-205.1CVan Wert County HospitalComment on above:Order Comment: Specimen Type: BLOOD SPECIMENOrdering Facility: [facility] Address:[address] [place], [place] [address]Performed By: #### 39317-1, 2275-4 ####[facility] LABIA [id number] [place] [address] [place] OF AMERICAIron and Iron binding capacity panelon 78-28-3966Msty [Mass/Vol]77 ug/qGXhnpmb63-519NqtsytjukChildren'S Hospital For Rehabilitation Comment on above:Order Comment: Specimen Type: BLOOD SPECIMENOrdering Facility: [facility] Address:[address] [place] [address] Performed By: #### 11821-6, 2275-09 ####[facility] LABIA [id number] [place] [address] [place] Iron binding capacity [Mass/Vol]330 ug/wCDbpdhs150-598ZdlevkfbfChildren'S Hospital For Rehabilitation Comment on above:Order Comment: Specimen Type: BLOOD SPECIMENOrdering Facility: [facility] Address:[address] [place] [address] Performed By: #### 13273-9, 2275- ####[facility] LABIA [id number] [place] [address] [place] Iron/TIBC [Molar ratio]23.3 %Prdlcx27.0-57.0Children'S Hospital For RehabilitationComment on above:Order Comment: Specimen Type: BLOOD SPECIMENOrdering Facility: [facility] Address:[address] [place], [place] [address]Performed By: #### 78769-4, 2276-4 ####[facility] ANGIE [id number] [place] [address] Panel Informationon 98-65-2195VASL HealthcareCNPNon 03-74-0117LJGNHjyumtqqn (HEMTSA) SHAUNA CHRISTENSEN ([id number]) 1955 F Date Time Provider Department 06/06/24 CAROLYN OSBORN HEMTSVictoriano During your visit today, we recorded the [...] if possible. Please advise. JAI Medina Jaimee, APRN.[employer] 06/06/2024 2:09 PM Signed Yes she can stop the oral while getting IV. Thanks. Carolyn Osborn RN 06/06/2024 4:20 PM Signed Shauna contacted via phone and made aware to stop oral iron. Pt voiced an understanding. Carolyn Osborn RN Allergies As of Date: 06/06/2024 (No Known Allergies) Date Reviewed: 06/06/2024 Reviewed by: Angela Rivas RN - Fully Assessed Reason for Visit: Patient Question [9114] Cmt: Oral iron Prescriptions as of 06/06/2024 [...] (GLUCOPHAGE) 500 mg tablet - MV with Dyp-Pxmdlgyp-Lwguur (CENTRUM SILVER) 0.4 mg-300 mcg- 250 mcg tab See Admin Instructions. - oxybutynin ER (DITROPAN XL) 15 mg 24 hr Extended Rel Tab Problem List As Of Date 06/06/2024 Noted Resolved Iron (Fe) deficiency anemia [D50.9] 05/19/2024 Encounter Status:Closed by CAROLYN OSBORN on 06/06/24[facility] CantonRandy 18-88-3186JZAXHcvhabnzo (HEMASA) SHAUNA CHRISTENSEN ([id number]) 1955 F Date Time Provider Department 05/16/24 SILVESTRE AGUIAR During your visit today, we recorded the following information about you: Silvestre Aguiar RN 05/16/2024 12:22 PM Signed Please call and [...] scheduled for Venofer x5 and follow up compa/ Suzie in September 2024. Thanks! Greer Erazo Allergies As of Date: 05/16/2024 (No Known Allergies) Date Reviewed: 05/15/2024 Reviewed by: Emily Ta MA - Fully Assessed Reason for Visit: Appointment [186] Primary Visit Diagnosis:Iron deficiency anemia, unspecified iron deficiency anemia type [D50.9] Order(s):IRON AND TIBC [SQIRON] Order #: [id number] FUTURE COMPREHENSIVE METABOLIC PANEL [SQCMP] Order #: [id number] FUTURE COMPLETE BLOOD COUNT AND DIFFERENTIAL [SQCBCDIF] Order #: [id number] FUTURE FERRITIN [SQFERR] Order #: [id number] FUTURE Prescriptions as of 05/20/2024 - aspirin [...] (GLUCOPHAGE) 500 mg tablet - MV with Dhd-Bfemqnvu-Ouonzr (CENTRUM SILVER) 0.4 mg-300 mcg- 250 mcg tab See Admin Instructions. - oxybutynin ER (DITROPAN XL) 15 mg 24 hr Extended Rel Tab Problem List As Of Date: 05/16/2024 (None) Encounter Status:Closed by GREER ERAZO on 05/20/24NoT[facility] W Auto Differential panel (Bld)on 50-35-9077Emidyhudj (Bld) [#/Vol] 0.03 10*3/uLNormal<0.11CTrinity Health System [facility] on above:Order Comment: Specimen Type: BLOOD SPECIMENOrdering Facility: [facility] Address:[address] [place], [place] [address]Performed By: #### 26374-6 ####[facility] LABCLIA [id number] [place], [place] [address]Trlquqift/100 WBC (Bld)0.3 %NormalMercy Hospital on above:Order Comment: Specimen Type: BLOOD SPECIMENOrdering Facility: [facility] Address:[address] [place], [place] [address]Performed By: #### 72839-3 ####[facility] LABCLIA [id number] [place], [place] [address]Dqyrieiyjjgt cell count method Nom (Bld)AutoNormalCTrinity Health System [facility] on above:Order Comment: Specimen Type: BLOOD SPECIMENOrdering Facility: [facility] Address:[address] [place], [place] [address]Performed By: #### 30129-9 ####[facility] LABCLIA [id number] [place], [place] [address]Kuhwntdnauy (Bld) [#/Vol]0.07 10*3/uLNormal<0.46[facility] on above:Order Comment: Specimen Type: BLOOD SPECIMENOrdering Facility: [facility] Address:[address] [place], [place] [address]Performed By: #### 18719-4 ####[facility] LABCLIA [id number] [place], [place] [address]Akppjjoheyp/100 WBC (Bld)0.8 %NormalMercy Hospital on above:Order Comment: Specimen Type: BLOOD SPECIMENOrdering Facility: [facility] Address:[address] [place], [place] [address]Performed By: #### [id number] ####[facility] LABCLIA [id number] [place], [place] [address]Ovuoyctlpol distribution width (RBC) [Ratio]13.3 %Normal 11.5-15.0[facility] on above:Order Comment: Specimen Type: BLOOD SPECIMENOrdering Facility: [facility] Address:[address] [place], [place] [address]Performed By: #### [id number] ####[facility] LABIA [id number] [place] [address] Hematocrit (Bld) [Volume fraction]39.4 %Qhfmhm45.0-46.0[facility] on above:Order Comment: Specimen Type: BLOOD SPECIMENOrdering Facility: [facility] Address:[address] [place], [place] [address]Performed By: #### [id number] ####[facility] LABIA [id number] [place], [place] [address]Nutikmibgh (Bld) [Mass/Vol]13.3 g/kMWppizk86.5-15.5CTrinity Health [facility] on above:Order Comment: Specimen Type: BLOOD SPECIMENOrdering Facility: [facility] Address:[address] [place], [place] [address]Performed By: #### [id number] ####[facility] LABIA [id number] [place], [place] [address]Rzytpfco granulocytes (Bld) [#/Vol]0.05 10*3/uLNormal <0.10[facility] on above:Order Comment: Specimen Type: BLOOD SPECIMENOrdering Facility: [facility] Address:[address] [place], [place] [address]Performed By: #### 17380-1 ####[facility] LABIA [id number] [place], [place] [address]Jkdozngb granulocytes/100 WBC (Bld)0.5 %NormalCleveland Clinic ClevelandComment on above: Order Comment: Specimen Type: BLOOD SPECIMENOrdering Facility: [facility] Address:[address] [place], [place] [address]Performed By: #### 59646- 8 ####[facility] LABCLIA [id number] [place], [place] [address]Ydnsuhmrhgd (Bld) [#/Vol]1.94 10*3/uLNormal1.00-4.00 [facility] on above:Order Comment: Specimen Type: BLOOD SPECIMENOrdering Facility: [facility] Address:[address] [place], [place] [address]Performed By: #### 34796-0 ####[facility] LABCLIA [id number] [place], [place] [address]Sxjytvmkgrl/100 WBC (Bld)21.0 %NormalMercy Hospital on above:Order Comment: Specimen Type: BLOOD SPECIMENOrdering Facility: [facility] Address:[address] [place], [place] [address]Performed By: #### 44004-8 ####[facility] LABCLIA [id number] [place], [place] [address]AAZ (RBC) [Entitic mass]29.7 gwLjeqgl03.0-34.0[facility] on above:Order Comment: Specimen Type: BLOOD SPECIMENOrdering Facility: [facility] Address:[address] [place], [place] [address]Performed By: #### 12547-6 ####[facility] LABCLIA [id number] [place], [place] [address]MKHC (RBC) [Mass/Vol]33.8 g/lRLwapdv97.5-36.0[facility] on above: Order Comment: Specimen Type: BLOOD SPECIMENOrdering Facility: [facility] Address:[address] [place], [place] [address]Performed By: #### 29354- 8 ####[facility] LABCLIA [id number] [place], [place] [address]GCN (RBC) [Entitic vol]87.9 jLDdowie63.0-100.0[facility] on above:Order Comment: Specimen Type: BLOOD SPECIMENOrdering Facility: [facility] Address:[address] [place], [place] [address]Performed By: #### 87381-0 ####[facility] LABCLIA [id number] [place], [place] [address]Eqotfovzw (Bld) [#/Vol]0.80 10*3/uLNormal<0.87[facility] on above:Order Comment: Specimen Type: BLOOD SPECIMENOrdering Facility: [facility] Address:[address] [place], [place] [address]Performed By: #### 13610- 8 ####[facility] LABCLIA [id number] [place], [place] [address]Ekdedxacl/100 WBC (Bld)8.7 %NormalMercy Hospital on above:Order Comment: Specimen Type: BLOOD SPECIMENOrdering Facility: [facility] Address:[address] [place], [place] [address]Performed By: #### 44676-8 ####[facility] LABCLIA [id number] [place], [place] [address]Afomphinupx (Bld) [#/Vol]6.34 10*3/uLNormal1.45-7.50[facility] on above:Order Comment: Specimen Type: BLOOD SPECIMENOrdering Facility: [facility] Address:[address] [place], [place] [address]Performed By: #### 44889-1 ####[facility] LABCLIA [id number] [place], [place] [address]Lvcmzhntgeu/100 WBC (Bld)68.7 %NormalMercy Hospital on above:Order Comment: Specimen Type: BLOOD SPECIMENOrdering Facility: [facility] Address:[address] [place], [place] [address]Performed By: #### 54747-7 ####[facility] LABCLIA [id number] [place], [place] [address]Wsieyvwjp RBC (Bld) [#/Vol] 10*3/uLNormal<0.01[facility] on above:Order Comment: Specimen Type: BLOOD SPECIMENOrdering Facility: [facility] Address:[address] [place], [place] [address]Performed By: #### 26123-1 ####[facility] LABCLIA [id number] [place], [place] [address]Nitcueybw RBC/100 WBC (Bld) [Ratio]0.0 /100 WBCNormal [facility] on above:Order Comment: Specimen Type: BLOOD SPECIMENOrdering Facility: [facility] Address:[address] [place], [place] [address]Performed By: #### 89657-9 ####[facility] LABCLIA [id number] [place], [place] [address]Zzkjcbvy mean volume (Bld) [Entitic vol]10.2 fLNormal9.0-12.7CTrinity Health System [facility] on above:Order Comment: Specimen Type: BLOOD SPECIMENOrdering Facility: [facility] Address:[address] [place] [address] Performed By: #### 40922-7 ####[facility] LABCLIA [id number] [place], [place] [address]Iylrpzdpl (Bld) [#/Vol]263 10*3/gPGxozqi590-876KnvhbkjytMercy Hospital on above:Order Comment: Specimen Type: BLOOD SPECIMENOrdering Facility: [facility] Address:[address] [place], [place] [address]Performed By: #### 97682-6 ####[facility] LABCLIA [id number] [place], [place] [address]OCA (Bld) [#/Vol]4.48 10*6/uLNormal3.90-5.20[facility] on above:Order Comment: Specimen Type: BLOOD SPECIMENOrdering Facility: [facility] Address:[address] [place], [place] [address]Performed By: #### 46431-9 ####[facility] LABCLIA [id number] [place], [place] [address]CJK (Bld) [#/Vol]9.23 10*3/uLNormal3.70-11.00[facility] on above: Order Comment: Specimen Type: BLOOD SPECIMENOrdering Facility: [facility] Address:[address] [place], [place] [address]Performed By: #### 33183- 8 ####[facility] LABIA [id number] [place], [place] [address]CPRKGIyl 33-90-4133EGFOVWQdwzw (SP) Office (HEMASA) RICHELLESHAUNA BARBER ([id number]) 1955 F Date Time Provider Department 05/15/24 11:00 AM SUZIE APTEL During your visit today, we recorded the following information about you: Temperature Pulse Respiration Blood pressure 97.5 degrees 70/minute 16/minute 144/83 Weight Height 82.9 kg 1.596 m Suzie Patel PA-C 05/15/2024 11:06 AM Signed PATIENT NAME: Shauna Christensen DATE: 05/14/2024 PRIMARY CARE PHYSICIAN: Pedro Rodriguez, Portions of this encounter note have been [...] metFORMIN (GLUCOPHAGE) 500 mg tablet MV with Pps-Jlcolmws-Alvlsw (CENTRUM SILVER) 0.4 mg-300 mcg- 250 mcg [...] Date Value 05/15/2024 13 (more content not included)...NormalChildren'S Hospital For Rehabilitation Comprehensive metabolic 2000 panelon 66-23-8270Ysqolfo [Mass/Vol]4.2 g/dLNormal 3.9-4.9CVan Wert County HospitalComment on above:Order Comment: Specimen Type: BLOOD SPECIMENOrdering Facility: [facility] Address:[address] [place], [place] [address]Performed By: #### 07846-3 ####[facility] LABCLIA [id number] [place] [address]LUM [Catalytic activity/Vol]99 U/SHtnjbo31-297ZxsaqbnbgMercy Hospital on above:Order Comment: Specimen Type: BLOOD SPECIMENOrdering Facility: [facility] Address:[address] [place], [place] [address]Performed By: #### 36662-7 ####[facility] LABCLIA [id number] [place] [facility] [place] [address]GEW [Catalytic activity/Vol]16 U/LNormal7-38[facility] on above:Order Comment: Specimen Type: BLOOD SPECIMENOrdering Facility: [facility] Address:[address] [place], [place] [address]Performed By: #### 77563-5 ####[facility] LABCLIA [id number] [place] ANDINOPHOEN[facility] [place]ANAND[place], [place] [address]Axbuz gap [Moles/Vol]11 mmol/LNormal8-15[facility] on above:Order Comment: Specimen Type: BLOOD SPECIMENOrdering Facility: [facility] Address:[address] [place], [place] [address]Performed By: #### 45964- 8 ####[facility] LABCLIA [id number] [place] [address]YAZ [Catalytic activity/Vol]19 U/SKxckjz03-22SrlcdglqdMercy Hospital on above:Order Comment: Specimen Type: BLOOD SPECIMENOrdering Facility: [facility] Address:[address] [place], [place] [address]Performed By: #### 92581-9 ####[facility] LABCLIA [id number] [place] ANDINOPHOEN[facility] [place]OS[place]ITALANAND[place], [place] [address]Qpeztctpy [Mass/Vol]0.6 mg/dLNormal0.2-1.3CTrinity Health System [facility] on above:Order Comment: Specimen Type: BLOOD SPECIMENOrdering Facility: [facility] Address:[address] [place], [place] [address]Performed By: #### 02407- 8 ####[facility] LABCLIA [id number] [place] [facility]PHOEN[facility] [place], [place] [address]Wrxnvhn [Mass/Vol]9.0 mg/dLNormal8.5-10.2CTrinity Health [facility] on above:Order Comment: Specimen Type: BLOOD SPECIMENOrdering Facility: [facility] Address:[address] [place], [place] [address]Performed By: #### 22087-3 ####[facility] LABCLIA [id number] [facility] [place], [place] [address]Fearkilm [Moles/Vol]107 mmol/L Qrrrzi38-209RfnhweubfMercy Hospital on above:Order Comment: Specimen Type: BLOOD SPECIMENOrdering Facility: [facility] Address:[address] [place], [place] [address]Performed By: #### 44218-5 ####[facility] LABCLIA [id number] [facility] [place] [address] CO2 [Moles/Vol]25 mmol/BTsloqq06-77YsvoicahaMercy Hospital on above: Order Comment: Specimen Type: BLOOD SPECIMENOrdering Facility: [facility] Address:[address] [place], [place] [address]Performed By: #### 90800- 8 ####[facility] LABCLIA [id number] [facility] [place], [place] [address]Dywtfawwbp [Mass/Vol]0.78 mg/dLNormal0.58-0.96[facility] on above:Order Comment: Specimen Type: BLOOD SPECIMENOrdering Facility: [facility] Address:[address] [place], [place] [address]Performed By: #### 03214-0 ####[facility] LABCLIA [id number] [place], [place] [address]Lejwpicext and Glomerular filtration rate.predicted panel (S/P/Bld)82 mL/min/1.73m???Normal>=60 [facility] on above:Order Comment: Specimen Type: BLOOD SPECIMENOrdering Facility: [facility] Address:[address] [place], [place] [address]Result Comment: Estimated Glomerular Filtration Rate (eGFR) is calculated using the 2020 CKD-EPI creatinine equation. This equation utilizes serum creatinine, sex, and age as parameters. The creatinine assay has traceable calibration to isotope dilution-mass spectrometry. Refer to KDIGO guidelines for clinical interpretation. In patients with unstable renal function, e.g. those with acute kidney injury, the eGFR may not accurately reflect actual GFR.Performed By: #### 77303-3 ####[facility] LABCLIA [id number] [place], [place] [address]Mdpmiwd [Mass/Vol]86 mg/gVKuucwa32-42VfntlloqlMercy Hospital on above:Order Comment: Specimen Type: BLOOD SPECIMENOrdering Facility: [facility] Address:[address] [place] [address] Comment: The [place] Diabetes Association (ADA) provides guidance for cutoff values for fast ing glucose and random glucose. The ADA defines [...] Standards of Medical Care in Diabetes 2016, [place] [employer]. Diabetes Care. 2016.39(Suppl 1).Performed By: #### 80167-6 ####[facility] LABCLIA [id number] [place], [place] [address]Opofenhmf [Moles/Vol]4.0 mmol/LNormal3.7-5.1CTrinity Health [facility] on above:Order Comment: Specimen Type: BLOOD SPECIMENOrdering Facility: [facility] Address:[address] [place], [place] [address]Performed By: #### 43619-5 ####[facility] LABCLIA [id number] [place], [place] [address]Brxgxzn [Mass/Vol]6.6 g/dLNormal6.3-8.0[facility] on above:Order Comment: Specimen Type: BLOOD SPECIMENOrdering Facility: [facility] Address:[address] [place], [place] [address]Performed By: #### 71811- 8 ####[facility] LABCLIA [id number] [place], [place] [address]Fcoyqb [Moles/Vol]143 mmol/GEfuvot220-283FndfncctwMercy Hospital on above:Order Comment: Specimen Type: BLOOD SPECIMENOrdering Facility: [facility] Address:[address] [place], [place] [address]Performed By: #### 75460-4 ####[facility] LABCLIA [id number] [place], [place] [address]Shic nitrogen [Mass/Vol]20 mg/dLNormal7-21[facility] on above:Order Comment: Specimen Type: BLOOD SPECIMENOrdering Facility: [facility] Address:[address] [place], [place] [address]Performed By: #### 29694-9 ####[facility] LABCLIA [id number] [place], [place] [address]Jtahgsvz SerPl-mCncon 35-51-0235Ouoqbgmj [Mass/Vol]39.1 ng/kGBwmqrf87.7-205.1CTrinity Health System [facility] on above:Order Comment: Specimen Type: BLOOD SPECIMENOrdering Facility: [facility] Address:[address] [place], [place] [address]Performed By: #### 24196-9, 2276-4 ####[facility] LABCLIA [id number] [place] [address] [place] OF AMERICAIron and Iron binding capacity panelon 08-12-6851Upof [Mass/Vol]46 ug/jQDkcxrg78-786AtbqwvksbChildren'S Hospital For Rehabilitation Comment on above:Order Comment: Specimen Type: BLOOD SPECIMENOrdering Facility: [facility] Address:[address] [place] [address] Performed By: #### 08085-4, 2275-09 ####[facility] LABIA [id number] [place] [address] [place] Iron binding capacity [Mass/Vol]341 ug/hERdixih522-247UqvaksagpChildren'S Hospital For Rehabilitation Comment on above:Order Comment: Specimen Type: BLOOD SPECIMENOrdering Facility: [facility] Address:[address] [place] [address] Performed By: #### 22165-8, 2275-09 ####[facility] LABIA [id number] [place] [address] [place] Iron/TIBC [Molar ratio]13.5 %Low15.0-57.0[facility] Hospital For RehabilitationComment on above:Order Comment: Specimen Type: BLOOD SPECIMENOrdering Facility: [facility] Address:[address] [place], [place] [address]Performed By: #### 93102-6, 2275-09 ####[facility] LABIA [id number] [place] [address] [place] OF AMERICACNPNon [id number] Telephone (HEMASA) SHAUNA CHRISTENSEN ([id number]) 1955 F Date Time Provider Department 04/01/24 SILVESTRE AGUAIR HEMASA During your visit today, we recorded the following information about you: Silvestre Aguiar RN 04/01/2024 3:34 PM Signed ----- [...] questions, needs or concerns at this time. Silvestre Aguiar RN Allergies As of Date: 04/01/2024 [...] (GLUCOPHAGE) 500 mg tablet - MV with Jyn-Qffvkyum-Mqshpd (CENTRUM SILVER) 0.4 mg-300 mcg- 250 mcg tab See Admin Instructions. - oxybutynin ER (DITROPAN XL) 15 mg 24 hr Extended Rel Tab Problem List As Of Date: 04/01/2024 (None) Encounter Status:Closed by SILVESTRE AGUIAR on 04/01/24NormalCWright[facility] W Auto Differential panel (Bld)on 24-48-7899Jnklhqkjn (Bld) [#/Vol] 0.03 10*3/uLNormal<0.11CTrinity Health System [facility] on above:Order Comment: Specimen Type: BLOOD SPECIMENOrdering Facility: [facility] Address:[address] [place], [place] [address]Performed By: #### 40193-0 ####[facility] LABCLIA [id number] [place], [place] [address]Rzbtdtrrt/100 WBC (Bld)0.5 %NormalMercy Hospital on above:Order Comment: Specimen Type: BLOOD SPECIMENOrdering Facility: [facility] Address:[address] [place], [place] [address]Performed By: #### 86677-8 ####[facility] LABCLIA [id number] [place], [place] [address]Sybzlvpbsabu cell count method Nom (Bld)AutoNormalCTrinity Health System [facility] on above:Order Comment: Specimen Type: BLOOD SPECIMENOrdering Facility: [facility] Address:[address] [place], [place] [address]Performed By: #### 15838-3 ####[facility] LABCLIA [id number] [place], [place] [address]Ybqeefjkdpc (Bld) [#/Vol]0.08 10*3/uLNormal<0.46[facility] on above:Order Comment: Specimen Type: BLOOD SPECIMENOrdering Facility: [facility] Address:[address] [place], [place] [address]Performed By: #### 55988-2 ####[facility] LABCLIA [id number] [place], [place] [address]Tgqacexkmki/100 WBC (Bld)1.3 %NormalMercy Hospital on above:Order Comment: Specimen Type: BLOOD SPECIMENOrdering Facility: [facility] Address:[address] [place], [place] [address]Performed By: #### 90390-2 ####[facility] LABIA [id number] [facility] [place], [place] [address]Xqznvqnsfut distribution width (RBC) [Ratio]13.8 %Normal 11.5-15.0[facility] on above:Order Comment: Specimen Type: BLOOD SPECIMENOrdering Facility: [facility] Address:[address] [place], [place] [address]Performed By: #### 21331-7 ####[facility] LABIA [id number] [place] [address] Hematocrit (Bld) [Volume fraction]40.3 %Xogdan75.0-46.0[facility] on above:Order Comment: Specimen Type: BLOOD SPECIMENOrdering Facility: [facility] Address:[address] [place], [place] [address]Performed By: #### 11638-1 ####[facility] LABIA [id number] [place], [place] [address]Sylcaxpscx (Bld) [Mass/Vol]13.6 g/hGJypmho58.5-15.5CTrinity Health System [facility] on above:Order Comment: Specimen Type: BLOOD SPECIMENOrdering Facility: [facility] Address:[address] [place], [place] [address]Performed By: #### 65361-7 ####[facility] LABIA [id number] [place], [place] [address]Uwloporr granulocytes (Bld) [#/Vol]0.04 10*3/uLNormal <0.10[facility] on above:Order Comment: Specimen Type: BLOOD SPECIMENOrdering Facility: [facility] Address:[address] [place], [place] [address]Performed By: #### 13755-0 ####[facility] LABCLIA [id number] [place], [place] [address]Bzbhdcoe granulocytes/100 WBC (Bld)0.6 %NormalMercy Hospital on above: Order Comment: Specimen Type: BLOOD SPECIMENOrdering Facility: [facility] Address:[address] [place], [place] [address]Performed By: #### 93703- 8 ####[facility] LABCLIA [id number] [place], [place] [address]Fbiggbmidrd (Bld) [#/Vol]1.67 10*3/uLNormal1.00-4.00 [facility] on above:Order Comment: Specimen Type: BLOOD SPECIMENOrdering Facility: [facility] Address:[address] [place], [place] [address]Performed By: #### 00275-2 ####[facility] LABCLIA [id number] [place], [place] [address]Rfhrkvyvdko/100 WBC (Bld)26.3 %NormalMercy Hospital on above:Order Comment: Specimen Type: BLOOD SPECIMENOrdering Facility: [facility] Address:[address] [place], [place] [address]Performed By: #### 38477-8 ####[facility] LABCLIA [id number] [place], [place] [address]OVM (RBC) [Entitic mass]29.8 iwKmacrx43.0-34.0[facility] on above:Order Comment: Specimen Type: BLOOD SPECIMENOrdering Facility: [facility] Address:[address] [place], [place] [address]Performed By: #### 03117-2 ####[facility] LABIA [id number] [place], [place] [address]GJOG (RBC) [Mass/Vol]33.7 g/sPVikrhe48.5-36.0[facility] on above: Order Comment: Specimen Type: BLOOD SPECIMENOrdering Facility: [facility] Address:[address] [place], [place] [address]Performed By: #### 18828- 8 ####[facility] LABCLIA [id number] [place], [place] [address]UZS (RBC) [Entitic vol]88.2 uJQsxmcj18.0-100.0[facility] on above:Order Comment: Specimen Type: BLOOD SPECIMENOrdering Facility: [facility] Address:[address] [place], [place] [address]Performed By: #### 12806-2 ####[facility] LABCLIA [id number] [place], [place] [address]Gryraajux (Bld) [#/Vol]0.63 10*3/uLNormal<0.87[facility] on above:Order Comment: Specimen Type: BLOOD SPECIMENOrdering Facility: [facility] Address:[address] [place], [place] [address]Performed By: #### 28918- 8 ####[facility] LABCLIA [id number] [place], [place] [address]Okylvrchm/100 WBC (Bld)9.9 %NormalMercy Hospital on above:Order Comment: Specimen Type: BLOOD SPECIMENOrdering Facility: [facility] Address:[address] [place], [place] [address]Performed By: #### 25072-5 ####[facility] LABCLIA [id number] [place], [place] [address]Ndmmbxbagqm (Bld) [#/Vol]3.91 10*3/uLNormal1.45-7.50[facility] on above:Order Comment: Specimen Type: BLOOD SPECIMENOrdering Facility: [facility] Address:[address] [place], [place] [address]Performed By: #### 71044-3 ####[facility] LABCLIA [id number] [place], [place] [address]Wkddivvlibd/100 WBC (Bld)61.4 %NormalMercy Hospital on above:Order Comment: Specimen Type: BLOOD SPECIMENOrdering Facility: [facility] Address:[address] [place], [place] [address]Performed By: #### 47875-9 ####[facility] LABCLIA [id number] [place], [place] [address]Kzmczhjfm RBC (Bld) [#/Vol] 10*3/uLNormal<0.01[facility] on above:Order Comment: Specimen Type: BLOOD SPECIMENOrdering Facility: [facility] Address:[address] [place], [place] [address]Performed By: #### 19598-1 ####[facility] LABCLIA [id number] [place], [place] [address]Mzgmjfntx RBC/100 WBC (Bld) [Ratio]0.0 /100 WBCNormal [facility] on above:Order Comment: Specimen Type: BLOOD SPECIMENOrdering Facility: [facility] Address:[address] [place], [place] [address]Performed By: #### 85926-6 ####[facility] LABCLIA [id number] [place], [place] [address]Ehtzsiak mean volume (Bld) [Entitic vol]9.9 fLNormal9.0-12.7CTrinity Health System [facility] on above:Order Comment: Specimen Type: BLOOD SPECIMENOrdering Facility: [facility] Address:[address] [place] [address] Performed By: #### 32448-5 ####[facility] LABIA [id number] [place], [place] [address]Kqmurejsz (Bld) [#/Vol]290 10*3/yTGciiuo721-538UtihmihivMercy Hospital on above:Order Comment: Specimen Type: BLOOD SPECIMENOrdering Facility: [facility] Address:[address] [place] [address]Bapzoywce By: #### 25080-6 ####[facility]ENTERAM[facility] LABIA [id number] [place], [place] [address]HLN (Bld) [#/Vol]4.57 10*6/uLNormal3.90-5.20[facility] on above:Order Comment: Specimen Type: BLOOD SPECIMENOrdering Facility: [facility] Address:[address] [place] [address]Xdduktufm By: #### 82202-6 ####[facility] [id number] [place], [place] [address]KXR (Bld) [#/Vol]6.36 10*3/uLNormal3.70-11.00[facility] on above: Order Comment: Specimen Type: BLOOD SPECIMENOrdering Facility: [facility] Address:[address] [place] [id number] By: #### [id number]- 8 ####[facility] [id number] [place], [place] [address]HKKWKBpy [id number] (SP) Office (HEMASA) SHAUNA CHRISTENSEN ([id number]) 1955 F Date Time Provider Department 03/31/24 [...] metFORMIN (GLUCOPHAGE) 500 mg tablet MV with Yqf-Uhtzentd-Qffilo (CENTRUM SILVER) 0.4 mg-300 mcg- 250 mcg [...] symmetrical LABS: Hemoglobin (g (more content not included)...[facility] 2000 panelon [id number] [Mass/Vol]4.4 g/dLNormal 3.9-4.9CTr[facility] on above:Order Comment: Specimen Type: BLOOD SPECIMENOrdering Facility: [facility] Address:[address] [place], [place] [address]Performed By: #### [id number] ####[facility] LABCLIA [id number] [place], [place] [address]VCZ [Catalytic activity/Vol]96 U/KIyvnuy74-959EvhkhovsfMercy Hospital on above:Order Comment: Specimen Type: BLOOD SPECIMENOrdering Facility: [facility] Address:[address] [place], [place] [address]Performed By: #### 05738-7 ####[facility] LABCLIA [id number] [facility] [place], [place] [address]ZCA [Catalytic activity/Vol]22 U/LNormal7-38[facility] on above:Order Comment: Specimen Type: BLOOD SPECIMENOrdering Facility: [facility] Address:[address] [place], [place] [address]Performed By: #### 57448-6 ####[facility] LABCLIA [id number] [place], [place] [address]Okeqe gap [Moles/Vol]10 mmol/LNormal8-15[facility] on above:Order Comment: Specimen Type: BLOOD SPECIMENOrdering Facility: [facility] Address:[address] [place], [place] [address]Performed By: #### [id number]- 8 ####[facility] LABCLIA [id number] [facility] [place], [place] [address]PLN [Catalytic activity/Vol]24 U/ANdgdmr06-44AlhxlcgnlMercy Hospital on above:Order Comment: Specimen Type: BLOOD SPECIMENOrdering Facility: [facility] Address:[address] [place], [place] [address]Performed By: #### 05592-8 ####[facility] LABCLIA [id number] [facility] [place], [place] [address]Yufomelqq [Mass/Vol]0.5 mg/dLNormal0.2-1.3CTrinity [facility] on above:Order Comment: Specimen Type: BLOOD SPECIMENOrdering Facility: [facility] Address:[address] [place], [place] [address]Performed By: #### 65465- 8 ####[facility] LABCLIA [id number] [facility] [place], [place] [address]Krjgccz [Mass/Vol]9.6 mg/dLNormal8.5-10.2CTrinity [facility] on above:Order Comment: Specimen Type: BLOOD SPECIMENOrdering Facility: [facility] Address:[address] [place], [place] [address]Performed By: #### 78838-1 ####[facility] LABCLIA [id number] [facility] [place], [place] [address]Eovimbyu [Moles/Vol]106 mmol/L Hqvdqc34-481TfeqvokxoMercy Hospital on above:Order Comment: Specimen Type: BLOOD SPECIMENOrdering Facility: [facility] Address:[address] [place], [place] [address]Performed By: #### 12682-5 ####[facility] LABCLIA [id number] [facility] [place] [address] CO2 [Moles/Vol]25 mmol/GHfrjxj48-80BsgkdhwaiMercy Hospital on above: Order Comment: Specimen Type: BLOOD SPECIMENOrdering Facility: [facility] Address:[address] [place], [place] [address]Performed By: #### 02531- 8 ####[facility] LABCLIA [id number] [facility] LIUSPHOENIX CHILDREN'S HOSPITALLEXY[place], [place] [address]Yzwuupioba [Mass/Vol]1.14 mg/dLHigh0.58-0.96[facility] on above:Order Comment: Specimen Type: BLOOD SPECIMENOrdering Facility: [facility] Address:[address] [place] [address]Ftvnkrmot By: #### 71388-8 ####[facility] LABIA [id number] [place], [place] [address]Cchvwmxntl and Glomerular filtration rate.predicted panel (S/P/Bld)52 mL/min/1.73m???Low>=60 [facility] on above:Order Comment: Specimen Type: BLOOD SPECIMENOrdering Facility: [facility] Address:[address] [place], [place] [address]Result Comment: Estimated Glomerular Filtration Rate (eGFR) is calculated using the 2020 CKD-EPI creatinine equation. This equation utilizes serum creatinine, sex, and age as parameters. The creatinine assay has traceable calibration to isotope dilution-mass spectrometry. Refer to KDIGO guidelines for clinical interpretation. In patients with unstable renal function, e.g. those with acute kidney injury, the eGFR may not accurately reflect actual GFR.Performed By: #### 44060-4 ####[facility] LABIA [id number] [place], [place] [address]Ucuvfvd [Mass/Vol]98 mg/kOCvtnya51-29JvbxvrxawMercy Hospital on above:Order Comment: Specimen Type: BLOOD SPECIMENOrdering Facility: [facility] Address:[address] [place] [address]Nlrlbj Comment: The [place] Diabetes Association (ADA) provides guidance for cutoff values for fast ing glucose and random glucose. The ADA defines [...] Standards of Medical Care in Diabetes 2016, [place] Diabetes Association. Diabetes Care. 2016.39(Suppl 1).Performed By: #### 27497-1 ####[facility] LABCLIA [id number] [place], [place] [address]Tgftvwuwy [Moles/Vol]4.4 mmol/LNormal3.7-5.1CTrinity Health [facility] on above:Order Comment: Specimen Type: BLOOD SPECIMENOrdering Facility: [facility] Address:[address] [place], [place] [address]Performed By: #### 47554-5 ####[facility] LABCLIA [id number] [place], [place] [address]Hxsctjp [Mass/Vol]7.1 g/dLNormal6.3-8.0[facility] on above:Order Comment: Specimen Type: BLOOD SPECIMENOrdering Facility: [facility] Address:[address] [place], [place] [address]Performed By: #### 20774- 8 ####[facility] LABCLIA [id number] [place], [place] [address]Aaxold [Moles/Vol]141 mmol/TAtxldg228-746TdbkaqbvjMercy Hospital on above:Order Comment: Specimen Type: BLOOD SPECIMENOrdering Facility: [facility] Address:[address] [place], [place] [address]Performed By: #### 47584-0 ####[facility] LABCLIA [id number] [place], [place] [address]Wrdj nitrogen [Mass/Vol]20 mg/dLNormal7-21[facility] on above:Order Comment: Specimen Type: BLOOD SPECIMENOrdering Facility: [facility] Address:[address] [place], [place] [address]Performed By: #### 23918-9 ####[facility] LABIA [id number] [place], [place] [address]Ogrvtufo [facility] [phone] [Mass/Vol]39.9 ng/vZRmxsdl25.7-205.1CTrinity Health [facility] on above:Order Comment: Specimen Type: BLOOD SPECIMENOrdering Facility: [facility] Address:[address] [place], [place] [address]Performed By: #### 2276-4, 94436-1 ####[facility] LABCLIA [id number] [place] [address] [place] OF AMERICAIron and Iron binding capacity panelon 18-57-6563Ohlm [Mass/Vol]44 ug/uNQevskj27-827FcxfcsgrxChildren'S Hospital For Rehabilitation Comment on above:Order Comment: Specimen Type: BLOOD SPECIMENOrdering Facility: [facility] Address:[address] [place] [address] Performed By: #### 2276-4, 34798-8 ####[facility] LABIA [id number] [address] STATES OF [facility] Iron binding capacity [Mass/Vol]355 ug/hZZedmya821-698JuxwowctaChildren'S Hospital For Rehabilitation Comment on above:Order Comment: Specimen Type: BLOOD SPECIMENOrdering Facility: [facility] Address:[address] [place] [address] Performed By: #### 2276-4, 61122-6 ####[facility] LABIA [id number] [address] [place] Iron/TIBC [Molar ratio]12.4 %Low15.0-57.0[facility] Hospital For RehabilitationComascension genesys hospital on above:Order Comment: Specimen Type: BLOOD SPECIMENOrdering Facility: [facility] Address:[address] [place], [place] [address]Performed By: #### 2276-4, 40946-7 ####[facility] LABIA [id number] [place] [address] [place] OF AMERICACNPNon [id number] Telephone (HEMASA) SHAUNA CHRISTENSEN ([id number]) 1955 F Date Time Provider Department 03/19/24 SUZIE PATEL HEMASA During your visit today, we recorded the following information about you: Emily Ta MA 03/19/2024 11:39 AM Signed Patient has an appt on 03/31/24. Would you like labs, if so place orders. Emily Ta MA Allergies As of Date: 03/19/2024 (No Known Allergies) Date Reviewed: 03/19/2024 Reviewed by: Suzie Patel, PADesi - Fully Assessed Reason for Visit: Lab Orders [1688] Primary Visit Diagnosis:Iron deficiency anemia, unspecified iron deficiency anemia type [D50.9] Order(s):IRON AND TIBC [SQIRON] Order #: [id number] FUTURE COMPREHENSIVE METABOLIC PANEL [SQCMP] Order #: [id number] FUTURE COMPLETE BLOOD COUNT AND DIFFERENTIAL [SQCBCDIF] Order #: [id number] FUTURE FERRITIN [SQFERR] Order #: [id number] FUTURE Prescriptions as of 03/19/2024 - aspirin [...] (GLUCOPHAGE) 500 mg tablet - MV with Pmf-Xuvjqboy-Zbivid (CENTRUM SILVER) 0.4 mg-300 mcg- 250 mcg tab See Admin Instructions. - oxybutynin ER (DITROPAN XL) 15 mg 24 hr Extended Rel Tab Problem List As Of Date: 03/19/2024 (None) Encounter Status:Closed by EMILY TA on 03/19/24[facility]PLE[facility] BLOOD COUNTon 76-39-3731Ofjxkmeepkc distribution width (RBC) [Ratio]15.4 %High11.5-15.0[facility] HospitalComment on above: Performed By: #### CBC, FEPR #### [facility] ([id number]) [address], [address] [place], [place] [address]Ooaiyquakp (Bld) [Volume fraction]39.4 %Svojvo97-34OmsPezxkw [facility] HospitalComment on above:Performed By: #### CBC, FEPR #### [facility] ([id number]) [address], [facility] [address] [place], [place] [address]Lbinxydcvp (Bld) [Mass/Vol]13.2 g/iWMvwvzl43.7-15.5ProMedica [facility] HospitalComment on above:Performed By: #### CBC, FEPR #### [facility] ([id number]) [address], [address] [place], [place] [address]JOJ (RBC) [Entitic mass]28.7 rnRrzqqy50-54NewSsayxl [facility] HospitalComment on above:Performed By: #### CBC, FEPR #### [facility] ([id number]) [address], [address] [place], [place] [address]ZPEL (RBC) [Mass/Vol]33.5 g/mBIywquh77-95WiuEhiloj [facility] HospitalComment on above:Performed By: #### CBC, FEPR #### [facility] ([id number]) [address] [address] [place], [place] [address]ZGU (RBC) [Entitic vol]86 bLGianbd10-044DilRrhdou [facility] HospitalComment on above:Performed By: #### CBC, FEPR #### [facility] ([id number]) [address], [address] [place] [address]Fprlhgor mean volume (Bld) [Entitic vol]8.8 fLNormal7-12 [facility] [place] HospitalComment on above:Performed By: #### GLADYS, FEPR #### [facility] ([id number]) [address], [address] [place] [address]Lnuoqbofs (Bld) [#/Vol]282 10*3/gQQozpbp680-898DmfJdpdhu [place] HospitalComment on above:Performed By: #### GLADYS, FEPR #### [facility] ([id number]) [address], [address] [place], [place] [address]YHX COUNT4.60 X10E12/LNormal3.80-5.20[facility] Comment on above:Performed By: #### GLADYS, FEPR #### [facility] ([id number]) [address], [address] [place], [place] [address]BPH (Bld) [#/Vol]7.1 10*3/uLNormal4.0-11.0[facility]ica [place] HospitalComment on above:Performed By: #### GLADYS, FEPR #### [facility] ([id number]) [address], [address] [place] [address]SUJG PROFILEon 99-87-7466Fzvc [Mass/Vol]138 ug/pZIfbmqu55-869 [facility] HospitalComment on above:Performed By: #### CBC, FEPR #### [facility] ([id number]) [address], [address] [place], [place] [address]TTHC PXPZBMN952 ug/sOKaeovb585-747XygTzsapd [place] [facility] Comment on above:Performed By: #### CBC, FEPR #### [facility] ([id number]) [address], [address] [place], [place] [address]BZAS EPMBXVKKYX01 % NKEIAHLSRXSwwoeh46-37VjeOkwmqw [place] HospitalComment on above:Performed By: #### CBC, FEPR #### [facility] ([id number]) [address] [facility] [place], [place] [address]YCU without diffon 16-98-0969Vkepqxcficg distribution width (RBC) [Ratio]15.3 %High11.5 - 15.0 %[facility] Memorial HospitalHematocrit (Bld) [Volume fraction]35.7 %35 - 47 %[facility] Memorial HospitalHemoglobin (Bld) [Mass/Vol]11.9 g/dL11.7 - 15.5 g/dLKettering Memorial HospitalInterpretation and review of laboratory resultsAbnormWakeMed North HospitalH (RBC) [Entitic mass]28.4 pg27 - 34 [facility] HospitalMCHC (RBC) [Mass/Vol]33.3 g/dL32 - 36 g/dLKettering Memorial HospitalMCV (RBC) [Entitic vol]85 fL80 - 100 [facility] HospitalPlatelet mean volume (Bld) [Entitic vol]8.8 fL7 - 12 [facility] HospitalPlatelets (Bld) [#/Vol]312 10*3/[facility] HospitalRBC (Bld) [#/Vol]4.20 10*6/[facility] HospitalWBC corrected for nucl RBC Auto (Bld) [#/Vol]5.0[facility] Hospital - ErieCOMPLETE BLOOD COUNTon 08-44-4233Mvzwgltmxcm distribution width (RBC) [Ratio]15.3 %High11.5-15.[address] Charles HospitalComment on above:Performed By: #### FEPR, CBC, HA1C #### [facility] ([id number]) [address] [facility], [address] [place], [place] [address]Lottsjnirc (Bld) [Volume fraction]35.7 %Vksdof57-32LsrHgvoraMercy Health St. Charles HospitalComment on above:Performed By: #### FEPR, CBC, HA1C #### [facility] ([id number]) [address], [address] [place], [place] [address]Xyjtehgqtz (Bld) [Mass/Vol]11.9 g/bIGiencb46.7-15.5ProMedica [place] HospitalComment on above:Performed By: #### KYLEE CBC, HA1C #### [facility] ([id number]) [address], [address] [place], [place] [address]ESA (RBC) [Entitic mass]28.4 rlOdoxyk08-18WegTnmrsa [place] HospitalComment on above:Performed By: #### KYLEE CBC, HA1C #### [facility] ([id number]) [address], [address] [place], [place] [address]ASMV (RBC) [Mass/Vol]33.3 g/wAFjtzcl89-71AkwMwkmpy [place] HospitalComment on above:Performed By: #### KYLEE CBC, HA1C #### [facility] ([id number]) [address], [address] [place], [place] [address]ZDZ (RBC) [Entitic vol]85 aMBstrtk75-170UdlDxxesl [place] HospitalComment on above:Performed By: #### KYLEE CBC, HA1C #### [facility] ([id number]) [address], [address] [place], [place] [address]Selgqwrv mean volume (Bld) [Entitic vol]8.8 fLNormal7-12 [facility] [place] HospitalComment on above:Performed By: #### FEPR, CBC, HA1C #### [facility] ([id number]) [address], [address] [place], [place] [address]Vdpbahjpi (Bld) [#/Vol]312 10*3/dVUrxscg919-226PjnBzcyte [place] HospitalComment on above:Performed By: #### FEPR, CBC, HA1C #### [facility] ([id number]) [address], [address] [place], [place] [address]EBB COUNT4.20 X10E12/LNormal3.80-5.20[facility] Comment on above:Performed By: #### KYLEE CBC, HA1C #### [facility] ([id number]) [address], [address] [place] [address]MXD (Bld) [#/Vol]5.0 10*3/uLNormal4.0-11.0ProSelect Medical Specialty Hospital - Cincinnati North HospitalComment on above:Performed By: #### GLADYS PICHARDO, HA1C #### [facility] ([id number]) [address], [address] [place] [address]SVHAZXAIVXIMP METABOLIC PANELon 94-13-1378Alggwyx [Mass/Vol]4.0 g/dLNormal3.2-5.3ProMedMiddletown Hospital HospitalComment on above:Performed By: #### DOMENICO, 85408-6 #### [facility] ([id number]) [address], [address] [place], [place] [address]TEG [Catalytic activity/Vol]85 U/NIpfjwv54-645WuxIizfnd [place] HospitalComment on above:Performed By: #### DOMENICO, 11491-1 #### [facility] ([id number]) [address], [address] [place], [place] [address]MMF [Catalytic activity/Vol]20 U/LNormal0-31PMarymount Hospital HospitalComment on above:Performed By: #### DOMENICO, 28130-9 #### [facility] ([id number]) [address], [address] [place], [place] [address]Zijuj gap [Moles/Vol]9 mmol/LNormal5-15ProSelect [facility] Specialty [facility] Hospital Comment on above:Performed By: #### DOMENICO, 89907-8 #### [facility] ([id number]) [address], [address] [place], [place] [address]IKK [Catalytic activity/Vol]24 U/LNormal0-41ProMarymount Hospitalca [place] HospitalComment on above:Performed By: #### DOMENICO, 30835-2 #### [facility] ([id number]) [address], [address] [place], [place] [address]Hprqbixcs [Mass/Vol]0.6 mg/dLNormal0.3-1.2ProMedMiddletown Hospital HospitalComment on above:Performed By: #### DOMENICO, 47965-7 #### [facility] ([id number]) [address], [address] [place], [place] [address]Etmxqwb [Mass/Vol]9.4 mg/dLNormal8.5-10.5PMarymount Hospital HospitalComment on above:Performed By: #### DOMENICO, 19381-7 #### [facility] ([id number]) [address], [address] [place], [place] [address]Roizzhfq [Moles/Vol]107 mmol/KRokdem19-120KssXhjaal [place] HospitalComment on above:Performed By: #### DOMENICO, 88581-3 #### [facility] ([id number]) [address], [address] [place], [place] [address]HK3 [Moles/Vol]27 mmol/PVnhdqq58-67VtdNsniqr [facility] Comment on above:Performed By: #### DOMENICO, 06065-4 #### [facility] ([id number]) [address], [address] [place], [place] [address]Ilxmscgysb [Mass/Vol]0.80 mg/dLNormal0.40-1.00ProSelect Medical Specialty Hospital - [facility] North HospitalComment on above:Result Comment: METHOD TRACEABLE TO IDMS STANDARD Performed By: #### DOMENICO, 86876-5 #### [facility] ([id number]) [address], [address] [place], [place] [address]XNV/1.73 sq M.predicted among non-blacks MDRD (S/P/Bld) [Vol rate/Area]80 mL/min/{1.73_m2}Normal>59ProMercy Health Springfield Regional Medical CenterComment on above: Result Comment: Reported eGFR is based on the CKD-EPI 2020 equation that does not use a race coefficient.Performed By: #### DOMENICO, 69454-4 #### [facility] ([id number]) [address], [address] [place], [place] [address]Xfcgvyu [Mass/Vol]86 mg/zUAihllo70-90PppOfmnfs [facility] Comment on above:Performed By: #### DOMENICO, 14376-4 #### [facility] ([id number]) [address], [address] [place], [place] [address]Gccpilyso [Moles/Vol]4.2 mmol/LNormal3.5-5.0ProMercy Health Springfield Regional Medical CenterComment on above:Performed By: #### DOMENICO, 97641-6 #### [facility] ([id number]) [address], [address] [place], [place] [address]Uhiuitj [Mass/Vol]6.8 g/dLNormal6.0-8.0[facility] Comment on above:Performed By: #### DOMENICO, 85301-2 #### [facility] ([id number]) [address], [address] [place], [place] [address]Uhkgkw [Moles/Vol]143 mmol/JKjchbo542-569DtxSgwklu [place] HospitalComment on above:Performed By: #### DOMENICO, 20468-7 #### [facility] ([id number]) [address], [address] [place], [place] [address]Jwgw nitrogen [Mass/Vol]17 mg/dLNormal5-27ProMercy Health Springfield Regional Medical CenterComment on above:Performed By: #### DOMENICO, 67493-2 #### [facility] ([id number]) [address], [address] [place], [place] [address]Ivhbmoztvjndz metabolic panelon 96-86-3531Ciaofvq [Mass/Vol]4.0 g/dL3.2 - 5.3 g/dLProCleveland Clinic [facility] Hospital SystemALP [Catalytic activity/Vol]85 U/L39 - 130 U/[facility] SystemALT No additional P-5'-P [Catalytic activity/Vol] 20 U/L0 - 31 U/[facility] SystemAnion gap [Moles/Vol]9 mmol/L5 - 15 mmol/[facility] SystemAST [Catalytic activity/Vol]24 U/L0 - 41 U/L [facility] HospitalBilirubin [Mass/Vol]0.6 mg/dL0.3 - 1.2 mg/dLWVUMedicine Harrison Community Hospital SystemCalcium [Mass/Vol]9.4 mg/dL8.5 - 10.5 mg/dLKettering Memorial Hospital Chloride [Moles/Vol]107 mmol/L98 - 109 mmol/[facility] SystemCO2 [Moles/Vol]27 mmol/L22 - 32 mmol/[facility] SystemCreatinine [Mass/Vol] 0.80 mg/dL0.40 - 1.00 mg/dLKettering Memorial HospitalComment on above:METHOD TRACEABLE TO IDMN STANDARDeGFR (CKD-EPI)non-race jpjzgazun05- [facility] Medical CenterComment on above: Reported eGFR is based on the CKD-EPI 2020 equation that does not use a race coefficient. Glucose [Mass/Vol]86 mg/dL65 - 99 mg/dLKettering Memorial HospitalPotassium [Moles/Vol]4.2 mmol/L3.5 - 5.0 mmol/[facility] SystemProtein [Mass/Vol] 6.8 g/dL6.0 - 8.0 g/dLDorothea Dix Hospitalodium [Moles/Vol]143 mmol/L134 - 146 mmol/[facility] Hospital DaytonUrea nitrogen [Mass/Vol]17 mg/dL5 - 27 mg/dL [facility] Hospital - ErieHGB A1C (GLYCO-HGB)on 10-10-2023 Glucose [Mass/Vol]105 mg/dLNoGood Samaritan HospitalComment on above: Performed By: #### FEPR, CBC, HA1C #### [facility] ([id number]) [address] [place] [address], [address] [place], [place] [address]FhS9k (Bld) [Mass fraction]5.3 %Normal4.4-5.6[facility] St. Charles HospitalComment on above:Result Comment: NOTE ADA Guidelines Result HgbA1c Normal : less than 5.7 % Prediabetes : 5.7 % to 6.4 % Diabetes : > 6.4 % Use with caution in patients with abnormal hemoglobin variants as the half-life of red blood cells and in vivo glycation rates are affected.Performed By: #### FEPR, CBC, HA1C #### [facility] ([id number]) [address] [place] [address], [address] [address]Thksmptnna A1con 07-49-0222Afwwgwz glucose Estimated from glycated hemoglobin (Bld) [Mass/Vol]105 mg/dLKettering Memorial HospitalHbA1c (Bld) [Mass fraction]5.3 %4.4 - 5.6 %[facility] HospitalComment on above:NOTE ADA Guidelines Result HgbA1c Normal : less than 5.7 % Prediabetes : 5.7 % to 6.4 % Diabetes : > 6.4 % Use with caution in patients with abnormal hemoglobin variants as the half-life of red blood cells and in vivo glycation rates are affected. [facility] Memorial HospitalIRON PROFILEon 79-03-7294Ywxz [Mass/Vol]27 ug/uSFwg46-[address] Charles HospitalComment on above:Performed By: #### FEPR, CBC, HA1C #### [facility] ([id number]) [address] [place] [address]MCPA MRDWWEZ705 ug/mDAakqyc287-821SzsOvucuuMercy Health St. Charles Hospital Comment on above:Performed By: #### FEPR, CBC, HA1C #### [facility] ([id number]) [address] [place] [address], [address] [address]EAPL SATURATION7 % ALPTJTPUFBBoo07-91AodJicybk [facility] Comment on above:Performed By: #### FEPR, CBC, HA1C #### [facility] ([id number]) [address] [place], [place] [address]Gqgg and TIBCon 14-26-9037Qbgjqspkdgxuwb and review of laboratory resultsAbnormalProMedica Health SystemIron [Mass/Vol]27 ug/dLLow50 - 170 ug/dLProMedica Health SystemIron binding capacity [Mass/Vol]395 ug/dL250 - 425 ug/dLProChildren'S Of [facility] Campus Health SystemIron saturation [Mass fraction]7LowProProMedica Fostoria Community Hospital Health SystemLipid 1996 panelon 34-49-7574Jawlgkhiwbj [Mass/Vol]129 mg/qHIss258-698OjtEoyvvsMercy Health St. Charles HospitalComment on above:Performed By: #### DOMENICO, 10848-1 #### [facility] ([id number]) [address], [address] [place], [place] [address]Smlzabrpkjl in HDL [Mass/Vol]50 mg/dLNormal>39[facility] St. Charles HospitalComment on above:Result Comment: HDL <40 mg/dL - High Risk HDL > or = 40mg/dL- Desirable HDL >60 mg/dL - Negative Risk Performed By: #### DOMENICO, 35013-7 #### [facility] ([id number]) [address], [address] [place], [place] [address]Yoymukvdfya in LDL [Mass/Vol]55 mg/dLNormal<130[facility] Charles HospitalComment on above:Result Comment: LDL <100 mg/dL - Desirable LDL >160 mg/dL - High Risk Performed By: #### DOMENICO, 10089-9 #### [facility] ([id number]) [address] [place], [place] [address]Bcwtqmyvlft in VLDL [Mass/Vol]24 mg/dLNormal0-30[facility] HospitalComment on above:Performed By: #### DOMENICO, 72771-7 #### [facility] ([id number]) [address], [address] [place], [place] [address]OGFBCJETVRX:HDL2.3Wkfoqb3.0-5.0[facility] HospitalComment on above:Performed By: #### DOMENICO, 70406-6 #### [facility] ([id number]) [address], [address] [place], [place] [address]Vhihrcasdzwe [Mass/Vol]122 mg/hWGkgqwn42-585JgbIrwijx Dry Run HospitalComment on above:Performed By: #### DOMENICO, 69819-4 #### [facility] ([id number]) [address], [address] [place], [place] [address]Qxoynyogpr - AUTOMATEDon [id number] (U)[facility] [employer] Other Bilirubin Ql (U)[employer] Other Color (U)dark yellowRecipharm [employer] Other Glucose Ql (U)[employer] Other Hemoglobin Ql (U)largeRec[employer]arm [employer] Other Ketones Ql (U)[employer] Other Leukocyte esterase Test strip Ql (U)smallFinicity Other Nitrite Ql (U)[employer] Other pH (U)6.5 [pH][employer] Other Protein Ql (U)100[facility] [employer] Other Specific gravity (U) [Rel density]1.025[facility] [employer] Other Urobilinogen (U) [Mass/Vol]0.2 mg/dLMulticare Valley Hospital [employer] Other Urinalysis - AUTOMATEDNoGrand View Health [employer] Other Urine Cultureon [id number] Vkvcmwu46,000[facility] [facility] Other Urine Culture<16SusceptibleDuarte Kanari Other Urine Culture<8/4SusceptibleDuarte Kanari Other Urine Culture<8SusceptSaint [facility] Other Urine Culture<4SusceptibleDuarte Kanari Other Urine Culture<2SusceptibleDuarte Kanari Other Urine Culture<1SusceptibleDuarte Kanari Other Urine Culture<0.25SusceptSaint [facility] Other Urine Culture<0.5SusceptibleDuarte Kanari Other Urine Culture<0.5/9.5SusceptibleDuarte Kanari Other CBC AUTO DIFFon 69-34-3597XSOI #0.0 103/ulNormal 0.0-0.1The Comment on above:Performed By: #### CBC #### Laboratory [address] [address] [address] Odilia Caballerosophils/100 WBC (Bld)0.4 %Normal0.2-2.0The Comment on above:Performed By: #### CBC #### Laboratory [address] [address] [address] Odilia Ramey #0.1 103/ulNormal0.0-0.7The Comment on above: Performed By: #### CBC #### Laboratory [address] [address] [address] Odilia Dejesusosinophils/100 WBC (Bld)2.1 %Normal0.9-7.0The Comment on above:Performed By: #### CBC #### Laboratory [address] [place] [address] Dr. Odilia Dejesusrythrocyte distribution width (RBC) [Ratio]15.3 %Critically high 11.0-15.0The [facility] Centerment on above:Performed By: #### CBC #### Laboratory [address] [place] [address] Dr. Odilia CeronHematocrit (Bld) [Volume fraction]40.8 %Qjdkrg65.0-48.0The Comment on above:Performed By: #### CBC #### Laboratory [address] [place] [address] Dr. Odilia CeronHemoglobin (Bld) [Mass/Vol]12.9 g/hRWqgmwm76.0-16.0The Comment on above:Performed By: #### CBC #### Laboratory [address] [place] [address] Dr. Odilia Muir #0.02 10e3/ulNormal0.00-0.03The Comment on above:Performed By: #### CBC #### Laboratory [address] [place] [address] Dr. Odilia Muir %0.4 %Normal0.0-0.5The Comment on above: Performed By: #### CBC #### Laboratory [address] [place] [address] Dr. Odilia Keenan #1.8 103/ulNormal1.2-3.8The Mia HospitalComment on above:Performed By: #### CBC #### Laboratory [address] [address] [address] Odilia Rickmphocytes/100 WBC (Bld)38.1 %Mdjcvj91.5-60.0The Comment on above:Performed By: #### CBC #### Laboratory [address] [place] [address] Dr. Odilia AmaralUAL DIFF REQNONormalThe Comment on above: Performed By: #### CBC #### Laboratory [address] [place] [address] Dr. Odilia Howell (RBC) [Entitic mass]28.0 pjFtupjy40.7-34.0The Comment on above:Performed By: #### CBC #### Laboratory [address] [place] [address] Dr. Odilia Howell (RBC) [Mass/Vol]31.6 g/zLFmmqun84.9-35.2The Comment on above:Performed By: #### CBC #### Laboratory [address] [place] [address] Dr. Odilia Howell (RBC) [Entitic vol]88.5 vVHylowt56.0-99.0The Comment on above:Performed By: #### CBC #### Laboratory [address] [place] [address] Dr. Odilia Jones #0.5 103/ulNormal0.3-0.8The Comment on above:Performed By: #### CBC #### Laboratory [address] [place] [address] Dr. Odilia Goodsonocytes/100 WBC (Bld)10.4 %Normal1.7-12.0The [facility] on above:Performed By: #### CBC #### Laboratory [address] [place] [address] Dr. Odilia Aldana #2.3 103/ulNormal1.4-6.5The Comment on above:Performed By: #### CBC #### Laboratory [address] [address] [address] Odilia CeronNeutrophils/100 WBC (Bld)48.6 %Fitzfw68.0-75.0The Comment on above:Performed By: #### CBC #### Laboratory [address] [address] [address] Odilia CeronPlatelet mean volume (Bld) [Entitic vol]10.1 fLNormal9.5-13.5The Comment on above:Performed By: #### CBC #### Laboratory [address] [place] [address] Dr. Odilia CeronPLT298 103/rlDiwjnk885-711Rkj Comment on above: Performed By: #### CBC #### Laboratory [address] [address] [address] Odilia CeronRBC4.61 106/ulNormal4.20-5.40The Comment on above:Performed By: #### CBC #### Laboratory [address] [place] [address] Dr. Odilia CeronWBC4.8 103/ulNormal4.0-11.0The [facility] on above: Performed By: #### CBC #### Laboratory [address] [address] [address] Odilia CeronFERRITINon 21-93-8692Cchxpfse [Mass/Vol]21.0 ng/mLNormal8.0-252.0 The Comment on above:Performed By: #### FERR, FETIBC #### [address] [place], [place] [address]Dblake Thao AND TIBCon 10-11-2022% NHEMOZKEMX27.5 %NormalThe [facility] on above:Performed By: #### FERR, FETIBC #### [address] [address]Dblake Thao [Mass/Vol] 51.0 ug/fOLimmqa73.0-170.0Mer[facility] Defiance HospitalComment on above:Performed By: #### SYLVAIN, FETIBC #### [address] [place], [place]Dr. Odilia SwansonC OBFCKY192.0 ug/fSAivclk885.0-450.0The Comment on above:Performed By: #### SYLVAIN, FETIBC #### [address] [place], [place]Dr. Odilia CeronUrinalysis - AUTOMATEDon 35-48-2991Necgjwnxif (U)[facility] CenterRecipharm Kan[facility] Other Bilirubin Ql (U)[facility] Other Color (U)yearDuarte Kanari Other Glucose Ql (U)[facility] HospitalRec[facility] Other Hemoglobin Ql (U)[facility]Rec[facility] Other Ketones Ql (U)[facility] HospitalRec[facility] Other Leukocyte esterase Test strip Ql (U)[facility] Other Nitrite Ql (U)[facility] Other pH (U)6.5 [pH][employer] Other Protein Ql (U)>=300 mg/DLDuarte Kanari Other Specific gravity (U) [Rel density]1.030Duarte Kanari Other Urobilinogen (U) [Mass/Vol]0.2 mg/dLRecipharm Kanari Other Urinalysis - AUTOMATEDRecipharm Kanari Other Urine Cultureon 08-84-6109Xvgruidn identified Cx Nom (U)[employer] Other Comprehensive metabolic 2000 panelon 08-53-1440Eyybbqu [Mass/Vol]4.4 g/dL3.9 - 4.9 g/dLCanby ClinicALP [Catalytic activity/Vol]99 U/L34 - 123 U/LCleveland ClinicALT [Catalytic activity/Vol]20 U/L7 - 38 U/L Canby ClinicAnion gap [Moles/Vol]9 mmol/L9 - 18 mmol/LCleveland ClinicAST [Catalytic activity/Vol]23 U/L13 - 35 U/LCleveland ClinicBilirubin [Mass/Vol]0.4 mg/dL0.2 - 1.3 mg/dLCletrumbull regional medical center ClinicCalcium [Mass/Vol]9.9 mg/dL8.5 - 10.2 mg/dL [facility] ClinicChloride [Moles/Vol]103 mmol/L97 - 105 mmol/LCleveland ClinicCO2 [Moles/Vol]28 mmol/L22 - 30 mmol/LCleveland ClinicCreatinine [Mass/Vol]0.95 mg/dL0.58 - 0.96 mg/dLCorey HospitalEstimated Glomerular Filtration Rate65 mL/min/1.73m>=60 mL/min/1.73mCleveland ClinicGlucose [Mass/Vol]132 mg/qAEyjo27 - 99 mg/dLCorey HospitalPotassium [Moles/Vol]4.6 mmol/L3.7 - 5.1 mmol/L [facility] ClinicProtein [Mass/Vol]7.2 g/dL6.3 - 8.0 g/dLCanby ClinicSodium [Moles/Vol]140 mmol/L136 - 144 mmol/LCleveland [facility] County Medical CenterUrea nitrogen [Mass/Vol]16 mg/dL7 - 21 mg/dLCorey HospitalPhysical Therapy Noteon 02-00-3286Sdfqtxmf Therapy [id number]#1.00[facility] W Auto Differential panel (Bld)on 61-55-0724Rnuzbyecw (Bld) [#/Vol] 0.03 10*3/uL<0.11 k/uLCleMarietta Memorial HospitalBasophils/100 WBC (Bld)0.4 %Corey HospitalDifferential cell count method Nom (Bld)AutoCleveland ClinicEosinophils (Bld) [#/Vol]0.12 10*3/uL<0.46 k/uLCorey HospitalEosinophils/100 WBC (Bld)1.7 %Corey HospitalErythrocyte distribution width (RBC) [Ratio]16.6 %High11.5 - 15.0 %[facility] HospitalHematocrit (Bld) [Volume fraction]35.3 %Low36.0 - 46.0 % [facility] HospitalHemoglobin (Bld) [Mass/Vol]11.2 g/dLLow11.5 - 15.5 g/dLCorey HospitalImmature granulocytes (Bld) [#/Vol]<0.10 k/uLCorey HospitalImmature granulocytes/100 WBC (Bld)0.3 %[facility]y HospitalLymphocytes (Bld) [#/Vol]3.03 10*3/uL1.00 - 4.00 k/uLCorey HospitalLymphocytes/100 WBC (Bld)42.6 %[facility] HospitalH (RBC) [Entitic mass]26.8 pg26.0 - 34.0 pgClevelMercy Hospital of Coon RapidsHC (RBC) [Mass/Vol]31.7 g/dL30.5 - 36.0 g/dLOhioHealth Shelby HospitalV (RBC) [Entitic vol]84.4 fL80.0 - 100.0 fLCleveland ClinicMonocytes (Bld) [#/Vol]0.75 10*3/uL<0.87 k/uL [facility] ClinicMonocytes/100 WBC (Bld)10.5 %[facility]y HospitalNeutrophils (Bld) [#/Vol]3.16 10*3/uL1.45 - 7.50 k/uLCorey HospitalNeutrophils/100 WBC (Bld)44.5 %[facility] HospitalNucleated RBC (Bld) [#/Vol]<0.01 k/uLCorey HospitalNucleated RBC/100 WBC (Bld) [Ratio]0.0 /100 WBCCorey HospitalPlatelet mean volume (Bld) [Entitic vol]9.5 fL9.0 - 12.7 fLCleveland ClinicPlatelets (Bld) [#/Vol]286 10*3/uL150 - 400 k/[facility] Memorial HospitalRBC (Bld) [#/Vol]4.18 10*6/uL3.90 - 5.20 m/[facility] HospitalWBC (Bld) [#/Vol]7.11 10*3/uL3.70 - 11.00 k/[facility] HospitalRETIC COUNTon 21-88-0669Zhibtoigxhrrx (Bld) [#/Vol]0.09784 10*3/uL0.018 - 0.100 M/[facility] Memorial HospitalReticulocytes (Bld) [#/Vol]on 06-22-2022 Reticulocytes/100 RBC (Bld)1.7 %0.4 - 2.0 %Corey HospitalProvider Orderson 22-92-7238Wlavszta [id number]#1.00OTMarietta Osteopathic ClinicCoding Summaryon 37-72-7280Qlrkbj SummaryHTMLBase 64 StperqtvIWu5xJu+PGhlYWQ+AF2CKRDbM28knCHsgZ5LV9nCDW2EHWGVUZONCD0IIK9slMN5QMzsK7Dp biAv [file] Ym9 (more content not included)...[facility] Medical CenterProvider Orderson 95-69-4802Fqnnqlea [id number]#1.00OTGTIFF [facility]itt[facility] Medical CenterUS Venous, Unilat, Lower Ext Righton 95-47-9437CK Venous, Unilat, Lower Ext RightHistory: Pain, history of varicose vein surgery VENOUS DUPLEX ULTRASOUND OF THE RIGHT LOWER EXTREMITY CLINICAL HISTORY: Joint pain COMPARISON: NONE AVAILABLE TECHNIQUE: Sonographic imaging of the deep venous system of the right lower extremity was performed by a registered manager user interface and the images were submitted for interpretation. [...] and signed by RU RAMIRES on 06/12/2022 1248NormalNorthern Griffin Hospital AUTO DIFFon 14-79-8230TSUX #0.0 103/ulNormal0.0-0.1 The Comment on above:Performed By: #### CBC #### [address] [address]Dr.Yilan Ceron Basophils/100 WBC (Bld)0.4 %Normal0.2-2.0The Comment on above: Performed By: #### CBC #### [address] [address]Dr.Yilan ChangEO #0.1 103/ulNormal0.0-0.7The Comment on above:Performed By: #### CBC #### [address] [address]Dr.Yilan ChangEosinophils/100 WBC (Bld)1.7 %Normal0.9-7.0The Comment on above:Performed By: #### CBC #### [address] [address]Dr.Yilan ChangErythrocyte distribution width (RBC) [Ratio]20.5 %Critically high11.0-15.0The Comment on above:Performed By: #### CBC #### [address] [place], [place] [address]Dr. Yilan ChangHematocrit (Bld) [Volume fraction]32.1 %Critically low36.0-48.0The Comment on above:Performed By: #### CBC #### [address] [address]Dr.Yilan ChangHemoglobin (Bld) [Mass/Vol]10.1 g/dLCritically low12.0-16.0The Comment on above:Performed By: #### CBC #### [address] [address]Dr.Odilia CeronIG #0.01 10e3/ulNormal0.00-0.03The Comment on above:Performed By: #### CBC #### [address] [place], [place] [address]Dr.Odilia CeronIG %0.2 %Normal 0.0-0.5The Comment on above:Performed By: #### CBC #### [address] [place], [place] [address]Dr.Odilia CeronLYMPH #1.9 103/ulNormal1.2-3.8The Comment on above:Performed By: #### CBC #### [address] [place], [place] [address]Dr.Odilia CeronLymphocytes/100 WBC (Bld)40.8 %Bkxfkb15.5-60.0The Comment on above:Performed By: #### CBC #### [address] [place], [place] [address]Dr.Odilia CeronMANUAL DIFF REQ NONormalThe Comment on above:Performed By: #### CBC #### [address] [place], [place] [address]Dr. Odilia CeronH (RBC) [Entitic mass]25.9 pgCritically low26.7-34.0The Comment on above:Performed By: #### CBC #### [address] [place], [place] [address]Dr.Odilia CeronHC (RBC) [Mass/Vol]31.5 g/hOJhaylg59.9-35.2The Comment on above: Performed By: #### CBC #### [address] [place], [place] [address]Dr.Odilia CeronV (RBC) [Entitic vol]82.3 fLNormal 81.0-99.0The Comment on above:Performed By: #### CBC #### [address] [place], [place] [address]Dr. Odilia CeornMONO #0.6 103/ulNormal0.3-0.8The Lawrenceville HospitalComment on above: Performed By: #### CBC #### [address] [place], [place] [address]Dr.Odilia ChangMonocytes/100 WBC (Bld)12.2 %Critically high1.7-12.0The Comment on above:Performed By: #### CBC #### [address]stes[address] [place], [place] [address]Dr. Odilia CeronNEUT #2.1 103/ulNormal1.4-6.5The Comment on above: Performed By: #### CBC #### [address] [place], [place] [address]Dr.Odilia ChangNeutrophils/100 WBC (Bld)44.7 %Normal 43.0-75.0The Comment on above:Performed By: #### CBC #### [address] [place], [place] [address]Dr. Odilia CeronPlatelet mean volume (Bld) [Entitic vol]9.5 fLNormal9.5-13.5The Comment on above:Performed By: #### CBC #### [address] [place], [place] [address]Dr.Odilia AqjnuLMR085 103/ul Sgszus700-836Csp Comment on above:Performed By: #### CBC #### [address]qu[address] [place], [place] [address]Dr. Odilia ChangRBC3.90 106/ulCritically low4.20-5.40The Comment on above:Performed By: #### CBC #### [address] [place], [place] [address]Dr.Ijeomalan ChangWBC4.7 103/ulNormal4.0-11.0The Comment on above:Performed By: #### CBC #### [address] [address]Dr.Odilia CeronFERRITINon 60-60-5309Sgpxoxma [Mass/Vol]19.0 ng/mLNormal8.0-252.0[facility] Comment on above:Performed By: #### FT4, FETIBC, FERR #### [address] [address]Dr. Odilia CeronFREE T4on 96-50-2280Uqqb T4 [Mass/Vol]0.74 ng/dLCritically low0.76-1.46The Comment on above:Performed By: #### FT4, FETIBC, FERR #### [address] [address]Dr. Odilia Ceron GLYCOHEMOGLOBIN A1Con 31-39-9387JIT RECOMMENDATIONSEE BELOWSullivan County Memorial HospitalalThEast Liverpool City HospitalComment on above:Result Comment: ADA RECOMMENDED LIMIT 4.0 - 6.0 ADA THERAPEUTIC TARGET < 7.0 ACTION SUGGESTED > 7.0Performed By: #### A1C #### Laboratory [address] [place] [address] Dr. Odilia CeronGlucose [Mass/Vol]91 mg/dGUyorki66-181VwnMercy Health Defiance Hospital Comment on above:Performed By: #### A1C #### Laboratory [address] [address] [address] Odilia CeronPerformed By: #### TSH, LIPID, CMP #### Laboratory [address] [address] [address] Odilia CeronHbA1c (Bld) [Mass fraction]4.8 %Normal4.5-6.2The Comment on above:Performed By: #### A1C #### Laboratory [address] [address] [address] Odilia Thao AND TIBCon 06-02-2022% SATURATION5.4 %NormalThe Lawrenceville HospitalComment on above:Performed By: #### FT4, FETIBC, FERR #### [address] [address]Dr. Odilia CeronIron [Mass/Vol]19.0 ug/dLCritically low50.0-170.0The Comment on above:Performed By: #### FT4, FETIBC, FERR #### [address] [address]DrNoemi CeronTIBC MOCTVD778.0 ug/dLNormal 250.0-450.0The Comment on above:Performed By: #### FT4, FETIBC, FERR #### [address] [address]Dr. Odilia CeronLIPID PROFILEon 93-34-4568TPLU-HDL RATIO NORMSEE BELOWNormal The Comment on above:Result Comment: 3.3 - 4.4 LOW RISK 4.4 - 7.1 AVERAGE RISK 7.1 - 11.0 MODERATE RISK >11.0 HIGH RISKPerformed By: #### TSH, LIPID, CMP #### Laboratory [address] [address] [address] Odilia Abbasiesterol [Mass/Vol]156 mg/dLNormal<=200The Comment on above:Performed By: #### TSH, LIPID, CMP #### Laboratory [address] [address] [address] Odilia Abbasiesterol in HDL [Mass/Vol]50 mg/pWFcjerl93-78Zjd [facility] on above:Performed By: #### TSH, LIPID, CMP #### Laboratory [address] [address] [address] Odilia Abbasiesterol in LDL [Mass/Vol]73.0 mg/dLNormalThe [facility] on above:Performed By: #### TSH, LIPID, CMP #### Laboratory [address] [address] [address] Odilia Hobbs.total/Cholesterol in HDL [Mass ratio]3.1 {ratio} NormalThe [facility] Centerment on above:Performed By: #### TSH, LIPID, CMP #### Laboratory [address] [place] [address] Dr. Odilia Wakefield NORMAL> or = 60 mg/dl - LOW CARDIOVASCULAR RISK <40 mg/dl - HIGH CARDIOVASCULAR RISKDayton VA Medical CenterComment on above:Performed By: #### TSH, LIPID, CMP #### Laboratory [address] [place] [address] Dr. Odilia CeronLDL CALC NORMALSEE BELOWDayton VA Medical CenterComment on above:Result Comment: <100 mg/dl OPTIMAL 100 - 129 mg/dl NEAR OR ABOVE OPTIMAL 130 - 159 mg/dl BORDERLINE HIGH 160 - 189 mg/dl HIGH >190 mg/dl VERY HIGH Performed By: #### TSH, LIPID, CMP #### Laboratory [address] [place] [address] Dr. Odilia CeronTriglyceride [Mass/Vol]165 mg/dLCritically high<=150The [facility] on above:Performed By: #### TSH, LIPID, CMP #### Laboratory [address] [place] [address] Dr. Odilia CarrilloLDL CALC33.0 mg/dLNoMercy Health Tiffin HospitalComascension genesys hospital on above: Performed By: #### TSH, LIPID, CMP #### Laboratory [address] [place] [address] Dr. Odilia CeronPROF 14(COMP METB)on 28-70-1787Zoqhhwh [Mass/Vol]3.3 g/dL Critically low3.4-5.0The Comment on above:Performed By: #### TSH, LIPID, CMP #### Laboratory [address] [place] [address] Dr. Odilia CeronAlbumin/Globulin [Mass ratio]1.0 {ratio}NormalThe Comment on above:Performed By: #### TSH, LIPID, CMP #### Laboratory [address] [place] [address] Dr. Yilan ChangALP [Catalytic activity/Vol]90 U/DEvtibp14-557Gfx Comment on above:Performed By: #### TSH, LIPID, CMP #### Laboratory [address] [place] [address] Dr. Odilia CorreaT [Catalytic activity/Vol]25 U/LOsqccu44-88Amf Comment on above:Performed By: #### TSH, LIPID, CMP #### Laboratory [address] [place] [address] Dr. Odilia Jacqueson gap [Moles/Vol]10.0 mmol/LNormalThe Comment on above:Performed By: #### TSH, LIPID, CMP #### Laboratory [address] [place] [address] Dr. Odilia CeronAST [Catalytic activity/Vol]25 U/KOvlgzw26-45Dam Comment on above:Performed By: #### TSH, LIPID, CMP #### Laboratory [address] [place] [address] Dr. Odilia CeronBilirubin [Mass/Vol]0.3 mg/dLNormal0.2-1.0[facility] Comment on above:Performed By: #### TSH, LIPID, CMP #### Laboratory [address] [place] [address] Dr. Odilia CeronCalcium [Mass/Vol]8.9 mg/dLNormal8.5-10.1[facility] Comment on above:Performed By: #### TSH, LIPID, CMP #### Laboratory [address] [place] [address] Dr. Odilia CeronChloride [Moles/Vol]106 mmol/GVdjtni36-779Uqn Comment on above:Performed By: #### TSH, LIPID, CMP #### Laboratory [address] [place] [address] Dr. Odilia CeronCO2 [Moles/Vol]30.0 mmol/DAcqvdl56.0-32.0The Comment on above:Performed By: #### TSH, LIPID, CMP #### Laboratory [address] [place], [place] [address] Dr. Odilia Dennisatinine [Mass/Vol]0.83 mg/dLNormal0.55-1.02The Comment on above:Performed By: #### TSH, LIPID, CMP #### Laboratory [address] [address] [address] Odilia DejesusGFR-AF NEPALESE>60Normal>=60The Comment on above:Performed By: #### TSH, LIPID, CMP #### Laboratory [address] [address] [address] Odilia DejesusGFR-NON AF NEPALESE>60Normal>=60The Comment on above:Performed By: #### TSH, LIPID, CMP #### Laboratory [address] [place] [address] Dr. Odilia CeronGlobulin (S) [Mass/Vol]3.4 g/dLNormalThe Comment on above:Performed By: #### TSH, LIPID, CMP #### Laboratory [address] [place] [address] Dr. Odilia CeronPotassium [Moles/Vol]4.0 mmol/LNormal3.5-5.1The Comment on above:Performed By: #### TSH, LIPID, CMP #### Laboratory [address] [place] [address] Dr. Odilia CeronProtein [Mass/Vol]6.7 g/dLNormal6.4-8.2The Comment on above:Performed By: #### TSH, LIPID, CMP #### Laboratory [address] [place] [address] Dr. Odilia CeronSodium [Moles/Vol]142 mmol/AYvjnwp735-579Jzr Comment on above:Performed By: #### TSH, LIPID, CMP #### Laboratory [address] [place] [address] Dr. Odilia CeronUrea nitrogen [Mass/Vol]16.0 mg/dLNormal7.0-18.0The Comment on above:Performed By: #### TSH, LIPID, CMP #### Laboratory [address] [place], [place] [address] Dr. Odilia CeronUrea nitrogen/Creatinine [Mass ratio]19.3 mg/mgNormalThe Comment on above:Performed By: #### TSH, LIPID, CMP #### Laboratory [address] [place], [place] [address] Dr. Odilia Mercado 34-20-8388MYA1.036 uIU/mLNormal0.358-3.740[facility] HospitalComment on above:Performed By: #### TSH, LIPID, CMP #### Laboratory [address] [address] [address] Odilia CeronVC INJ SCL [employer] COOK VEINSon 52-76-9896CD INJ SCL [employer] VEINS Patient: SHAUNA CHRISTENSEN Exam Date: 06/01/2022 : 1955 Gender:F Ordering : DR MAYANK MICHAEL M.D. Admission #: [id number] Family : Order #: [id number] CLICK HERE TO VIEW EXAM CORRECTION: changed veins injected Corrected on: 06/01/2022; RADIOLOGY REPORT PROCEDURE: VEIN CENTER INJECTION SCLEROSING SOLUTION MULTIPLE VEINS SAME COMPARISON: VC INJ SCL [employer] VEINS, 05/25/2022. VC INJ SCL NAIV [employer] COOK VEINS, 05/19/2022. INDICATIONS: Pain co-occurrent and due [...] by: Mayank Michael MD on 06/01/2022 at 10:05[facility] CenterVC INJ SCL [employer] COOK VEINSon 67-87-6749TJ INJ SCL [employer] COOK VEINSPatient: SHAUNA CHRISTENSENNoemi Exam Date: 05/25/2022 : 1955 Gender:F Ordering : DR MAYANK MICHAEL M.D. Admission #: [id number] Family : Order #: [id number] CLICK HERE TO VIEW EXAM RADIOLOGY REPORT PROCEDURE: VEIN CENTER INJECTION SCLEROSING SOLUTION MULTIPLE VEINS SAME COMPARISON: VC INJ SCL [employer] VE[employer], 05/19/2022. INDICATIONS: Pain co-occurrent and due [...] by: Candice Best M.D. on 05/25/2022 at 15:47[facility] CenterVC INJ SCL [employer] COOK VEINSon 71-37-9667OA INJ SCL [employer] COOK VEINSPatient: AMPAROSHAUNA HalieNoemi Exam Date: 05/19/2022 : 1955 Gender:F Ordering : DR MAYANK MICHAEL M.D. Admission #: [id number] Family : Order #: [id number] CLICK HERE TO VIEW EXAM RADIOLOGY REPORT [...] on 05/19/2022 at 08:33 Approved by: Mayank Michael MD on 05/19/2022 at 08:33[facility] CenterVC CONSULT FOLLOWUPon [id number] CONSULT FOLLOWUPPatient: SHAUNA CHRISTENSEN Exam Date: 05/05/2022 : 1955 Gender:F Ordering : DR MAYANK MICHAEL M.D. Admission #: [id number] Family : Order #: [id number] CLICK HERE TO VIEW EXAM RADIOLOGY REPORT [...] by: Mayank Michael MD on 05/05/2022 at 09:49[facility] CenterVC EXT VENOUS RT LIMITEDon [id number] EXT VENOUS RT LIMITEDPatient: SHAUNA CHRISTENSEN Exam Date: 05/05/2022 : 1955 Gender:F Ordering : DR MAYANK MICHAEL M.D. 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 Stable thrombus in PTV 9 cm segment. [...] by: Mayank Michael MD on 05/05/2022 at 09:47[facility] FOAM SCLERO W US MLTIon [id number] INJ FOAM SCLERO W US MLTIPatient: SHAUNA CHRISTENSEN Exam Date: 05/01/2022 : 1955 Gender:F Ordering : DR MAYANK MICHAEL M.D. Admission #: [id number] Family : Order #: [id number] CLICK HERE TO VIEW EXAM RADIOLOGY REPORT [...] by: Candice Best M.D. on 05/01/2022 at 14:28[facility] CONSULT FOLLOWUPon [id number] CONSULT FOLLOWUPPatient: SHAUNA CHRISTENSEN Exam Date: 04/24/2022 : 1955 Gender:F Ordering : DR MAYANK MICHAEL M.D. Admission #: [id number] Family : Order #: [id number] CLICK HERE TO VIEW EXAM RADIOLOGY REPORT [...] by: Mayank Michael MD on 04/24/2022 at 09:53[facility] EXT VENOUS RT LIMITEDon [id number] EXT VENOUS RT LIMITEDPatient: SHAUNA CHRISTENSEN Exam Date: 04/24/2022 : 1955 Gender:F Ordering : DR MAYANK MICHAEL M.D. Admission #: [id number] Family : Order #: [id number] CLICK HERE TO VIEW EXAM RADIOLOGY REPORT [...] by: Mayank Michael MD on 04/24/2022 at 09:29[facility]VC IN[facility] FOAM SCLERO W US MLTIon [id number] INJ FOAM SCLERO W US MLTIPatient: SHAUNA CHRISTENSEN Exam Date: 04/17/2022 : 1955 Gender:F Ordering : DR MAYANK MICHAEL M.D. Admission #: [id number] Family : Order #: [id number] CLICK HERE TO VIEW EXAM RADIOLOGY REPORT [...] to take an anti-i (more content not included)...Normal[facility]VC CONSULT FOLLOWUPon [id number] CONSULT FOLLOWUPPatient: SHAUNA CHRISTENSEN Exam Date: 03/24/2022 : 1955 Gender:F Ordering : DR MAYANK MICHAEL M.D. Admission #: [id number] Family : Order #: [id number] CLICK HERE TO VIEW EXAM RADIOLOGY REPORT [...] by: Mayank Michael MD on 03/24/2022 at 13:50NoMercy Health Tiffin HospitalVC EXT VENOUS RT LIMITEDon [id number] EXT VENOUS RT LIMITEDPatient: AMPARONEENAVictoriano AmbroseNoemi Exam Date: 03/24/2022 : 1955 Gender:F Ordering : DR MAYANK MICHAEL M.D. Admission #: [id number] Family : Order #: [id number] CLICK HERE TO VIEW EXAM RADIOLOGY REPORT [...] by: Mayank Michael MD on 03/24/2022 at 11:15NCincinnati [facility]riners HospitalVC ENDOVENOUS ABL 1ST V RTon 34-52-1592ET ENDOVENOUS ABL 1ST V RTPatient: RICHELLESHAUNA BARBER Exam Date: 03/21/2022 : 1955 Gender:F Ordering : DR MAYANK MICHAEL M.D. Admission #: [id number] Family : Order #: [id number] CLICK HERE TO VIEW EXAM RADIOLOGY REPORT [...] by: Candice Best M.D. on 03/21/2022 at 10:18NormBlanchard Valley Health System Blanchard Valley HospitalOSMOLALITYon 99-98-2468Ytslojzhhv [Osmolality]291 mosm/ybAglijp552-176 The Comment on above:Performed By: #### OSMO #### [id number] [place], [place] [address]Dr. Odilia Ceron OSMOLALITY URINEon 79-38-1659Xvhruiilpe, Yuarw119 mOsmol/kgNormBlanchard Valley Health System Blanchard Valley HospitalComment on above:Result Comment: 24 hr : 300 - 900 Random: 50 - 1400 After 12hr fluid restriction: >850Performed By: #### OSMOU #### [address] [place], [place] [address]Dr. Odilia Sanchez AUTO DIFFon 03-10-2022 BASO #0.0 103/ulNormal0.0-0.1[facility] Defiance HospitalComment on above:Performed By: #### CBC #### Laboratory [address] [place] [address] Dr. Odilia CernoBasophils/100 WBC (Bld)0.6 %Normal0.2-2.0[facility] Comment on above:Performed By: #### CBC #### Laboratory [address] [place] [address] Dr. Odilia Ramey #0.2 103/ulNormal0.0-0.7The Comment on above: Performed By: #### CBC #### Laboratory [address] [place] [address] Dr. Odilia Dejesusosinophils/100 WBC (Bld)3.4 %Normal0.9-7.0The Comment on above:Performed By: #### CBC #### Laboratory [address] [place] [address] Dr. Odilia Dejesusrythrocyte distribution width (RBC) [Ratio]17.7 %Critically high 11.0-15.0The Comment on above:Performed By: #### CBC #### Laboratory [address] [place] [address] Dr. Odilia CeronHematocrit (Bld) [Volume fraction]24.7 %Critically low36.0-48.0 The Comment on above:Performed By: #### CBC #### Laboratory [address] [place] [address] Dr. Odilia CeronHemoglobin (Bld) [Mass/Vol]7.2 g/dLCritically low12.0-16.0The Comment on above:Performed By: #### CBC #### Laboratory [address] [place] [address] Dr. Odilia Muir #0.02 10e3/ulNormal0.00-0.03The Comment on above:Performed By: #### CBC #### Laboratory [address] [place] [address] Dr. Odilia CeronIG %0.4 %Normal0.0-0.5The Comment on above: Performed By: #### CBC #### Laboratory [address] [place] [address] Dr. Odilia SantiagoH #2.3 103/ulNormal1.2-3.8The Comment on above:Performed By: #### CBC #### Laboratory [address] [place] [address] Dr. Odilia Rickmphocytes/100 WBC (Bld)45.5 %Jdweub79.5-60.0The Comment on above:Performed By: #### CBC #### Laboratory [address] [place] [address] Dr. Odilia Miles DIFF REQNONormalThe Comment on above: Performed By: #### CBC #### Laboratory [address] [place] [address] Dr. Odilia Howell (RBC) [Entitic mass]20.7 pgCritically low26.7-34.0The Comment on above:Performed By: #### CBC #### Laboratory [address] [place] [address] Dr. Odilia Howell (RBC) [Mass/Vol]29.1 g/dLCritically low29.9-35.2The Comment on above:Performed By: #### CBC #### Laboratory [address] [place] [address] Dr. Odilia Howell (RBC) [Entitic vol]71.0 fLCritically low81.0-99.0The Comment on above:Performed By: #### CBC #### Laboratory [address] [place] [address] Dr. Odilia Jones #0.6 103/ulNormal0.3-0.8The Comment on above:Performed By: #### CBC #### Laboratory [address] [place] [address] Dr. Odilia Goodsonocytes/100 WBC (Bld)11.6 %Normal1.7-12.0The Comment on above:Performed By: #### CBC #### Laboratory [address] [place] [address] Dr. Odilia Aldana #1.9 103/ulNormal1.4-6.5The Comment on above:Performed By: #### CBC #### Laboratory [address] [place] [address] Dr. Odilia Medeirosutrophils/100 WBC (Bld)38.5 %Critically low43.0-75.0The Comment on above:Performed By: #### CBC #### Laboratory [address] [address] [address] Odilia CeronPlatelet mean volume (Bld) [Entitic vol]9.4 fLCritically low 9.5-13.5The Comment on above:Performed By: #### CBC #### Laboratory [address] [address] [address] Odilia CeronPLT384 103/quVmrdec632-923Hik Comment on above: Performed By: #### CBC #### Laboratory [address] [address] [address] Odilia CeronRBC3.48 106/ulCritically low4.20-5.40The Comment on above:Performed By: #### CBC #### Laboratory [address] [address] [address] Odilia CeronWBC5.0 103/ulNormal4.0-11.0The Comment on above: Performed By: #### CBC #### Laboratory [address] [address] [address] Odilia CeronGLYCOHEMOGLOBIN A1Con 05-96-5318RWW RECOMMENDATIONSEE [facility] HospitalCom[facility] on above:Result Comment: ADA RECOMMENDED LIMIT 4.0 - 6.0 ADA THERAPEUTIC TARGET < 7.0 ACTION SUGGESTED > 7.0Performed By: #### A1C #### [address] [address]DrNoemi CeronGlucose [Mass/Vol]103 mg/dLNoMercy Health Tiffin HospitalComment on above:Performed By: #### A1C #### [address] [address]Dr.Yilan CeronHbA1c (Bld) [Mass fraction]5.2 %Normal 4.5-6.2The [facility] on above:Performed By: #### A1C #### [address] [address]Dr.Yilan CeronLIPID PROFILEon 02-13-5362VCHT-HDL RATIO NORMSEE [facility] Comment on above:Result Comment: 3.3 - 4.4 LOW RISK 4.4 - 7.1 AVERAGE RISK 7.1 - 11.0 MODERATE RISK >11.0 HIGH RISKPerformed By: #### LIPID, CMP #### Laboratory [address] [address] [address] Odilia CeronCholesterol [Mass/Vol]134 mg/dLNormal<=200[facility] Comment on above:Performed By: #### LIPID, CMP #### Laboratory [address] [address] [address] Odilia CeronCholesterol in HDL [Mass/Vol]49 mg/tVJdvzdy26-71ArqMercy Health Defiance HospitalComment on above:Performed By: #### LIPID, CMP #### Laboratory [address] [address] [address] Odilia CeronCholesterol in LDL [Mass/Vol]67.4 mg/dLDayton VA Medical CenterComment on above:Performed By: #### LIPID, CMP #### Laboratory [address] [address] [address] Odilia Abbasiestersurendra.total/Cholesterol in HDL [Mass ratio]2.7 {ratio} NormalMercy Health Defiance HospitalComment on above:Performed By: #### LIPID, CMP #### Laboratory [address] [place] [address] Dr. Odilia CeronHDL NORMAL> or = 60 mg/dl - LOW CARDIOVASCULAR RISK <40 mg/dl - HIGH CARDIOVASCULAR RISKDayton VA Medical CenterComment on above:Performed By: #### LIPID, CMP #### Laboratory [address] [place] [address] Dr. Odilia CeronLDL CALC NORMALSEE [facility] HospitalComment on above:Result Comment: <100 mg/dl OPTIMAL 100 - 129 mg/dl NEAR OR ABOVE OPTIMAL 130 - 159 mg/dl BORDERLINE HIGH 160 - 189 mg/dl HIGH >190 mg/dl VERY HIGH Performed By: #### LIPID, CMP #### Laboratory [address] [place] [address] Dr. Odilia CeronTriglyceride [Mass/Vol]88 mg/dLNormal<=150The Comment on above:Performed By: #### LIPID, CMP #### Laboratory [address] [place] [address] Dr. Odilia CarrilloLDL CALC17.6 mg/dLNormalThe Comment on above: Performed By: #### LIPID, CMP #### Laboratory [address] [place] [address] Dr. Odilia CeronPROF 14(COMP METB)on 28-32-5346Dmmhixh [Mass/Vol]3.5 g/dLNormal 3.4-5.0The Comment on above:Performed By: #### LIPID, CMP #### Laboratory [address] [place] [address] Dr. Odilia CeronAlbumin/Globulin [Mass ratio]1.1 {ratio}NormalThe Comment on above:Performed By: #### LIPID, CMP #### Laboratory [address] [place] [address] Dr. Odilia Clancy [Catalytic activity/Vol]86 U/BNmdvtj38-781Nxa Comment on above:Performed By: #### LIPID, CMP #### Laboratory [address] [place] [address] Dr. Odilia Rodas [Catalytic activity/Vol]20 U/QHnvzuu69-07Twi Comment on above:Performed By: #### LIPID, CMP #### Laboratory [address] [place] [address] Dr. Odilia Euceda gap [Moles/Vol]15.3 mmol/LNormalThe Comment on above:Performed By: #### LIPID, CMP #### Laboratory [address] [place] [address] Dr. Odilia Cardoza [Catalytic activity/Vol]15 U/NLrbbhr23-77Hio Comment on above:Performed By: #### LIPID, CMP #### Laboratory [address] [place] [address] Dr. Yilan ChangBilirubin [Mass/Vol]0.5 mg/dLNormal0.2-1.0The Comment on above:Performed By: #### LIPID, CMP #### Laboratory [address] [address] [address] Odilia CeronCalcium [Mass/Vol]9.1 mg/dLNormal8.5-10.1The Comment on above:Performed By: #### LIPID, CMP #### Laboratory [address] [place] [address] Dr. Odilia CeronChloride [Moles/Vol]127 mmol/LCritically guzy14-962Msa Comment on above:Performed By: #### LIPID, CMP #### Laboratory [address] [place] [address] Dr. Odilia CeronCO2 [Moles/Vol]28.1 mmol/OXbqrja13.0-32.0The Comment on above:Performed By: #### LIPID, CMP #### Laboratory [address] [place] [address] Dr. Odilia CeronCreatinine [Mass/Vol]0.90 mg/dLNormal0.55-1.02The Comment on above:Performed By: #### LIPID, CMP #### Laboratory [address] [place] [address] Dr. Odilia DejesusGFR-AF NEPALESE>60Normal>=60The Comment on above:Performed By: #### LIPID, CMP #### Laboratory [address] [place] [address] Dr. Odilia DejessuGFR-NON AF NEPALESE>60Normal>=60The Comment on above:Performed By: #### LIPID, CMP #### Laboratory [address] [place] [address] Dr. Odilia CeronGlobulin (S) [Mass/Vol]3.3 g/dLNormalThe Comment on above:Performed By: #### LIPID, CMP #### Laboratory [address] [address] [address] Odilia CeronGlucose [Mass/Vol]94 mg/eNSsmjtg46-126Ntr Comment on above:Performed By: #### LIPID, CMP #### Laboratory [address] [address] [address] Odilia CeronPotassium [Moles/Vol]5.0 mmol/LNormal3.5-5.1The Comment on above:Performed By: #### LIPID, CMP #### Laboratory [address] [place] [address] Dr. Odilia CeronProtein [Mass/Vol]6.8 g/dLNormal6.4-8.2The Comment on above:Performed By: #### LIPID, CMP #### Laboratory [address] [place] [address] Dr. Odilia CeronSodium [Moles/Vol]162 mmol/LCritically cpvo954-441Gar Comment on above:Performed By: #### LIPID, CMP #### Laboratory [address] [address] [address] Odilia CeronUrea nitrogen [Mass/Vol]22.0 mg/dLCritically high7.0-18.0The Comment on above:Performed By: #### LIPID, CMP #### Laboratory [address] [place] [address] Dr. Odilia CeronUrea nitrogen/Creatinine [Mass ratio]24.4 mg/mgNormalThe Comment on above:Performed By: #### LIPID, CMP #### Laboratory [address] [place] [address] Dr. Odilia CeronMG MAMM SCREEN 3D AMANDA CADon 91-59-5623SW MAMM SCREEN 3D AMANDA CAD Patient: SHAUNA CHRISTENSEN Exam Date: 03/06/2022 : 1955 Gender:F Ordering : WERNER BEJARANO Admission #: [id number] Family : Order #: [id number] CLICK HERE TO VIEW EXAM RADIOLOGY REPORT [...] age 33. LOCATION: The BREAST COMPOSITION: Heterogeneously dense,which may obscure small [...] by: Mayank Michael MD on 03/06/2022 at 10:29[facility] CenterVC CONSULT FOLLOWUPon 48-66-0424FR CONSULT FOLLOWUPPatient: SHAUNA CHRISTENSEN Exam Date: 03/03/2022 : 1955 Gender:F Ordering : DR MAYANK MICHAEL M.D. Admission #: [id number] Family : Order #: [id number] CLICK HERE TO VIEW EXAM RADIOLOGY REPORT [...] by: Mayank Michael MD on 03/03/2022 at 09:38[facility] CenterVC EXT VENOUS RT LIMITEDon 78-72-9174AW EXT VENOUS RT LIMITEDPatient: SHAUNA CHRISTENSEN Exam Date: 03/03/2022 : 1955 Gender:F Ordering : DR MAYANK MICHAEL M.D. Admission #: [id number] Family : Order #: [id number] CLICK HERE TO VIEW EXAM RADIOLOGY REPORT [...] by: Mayank Michael MD on 03/03/2022 at 09:22[facility] CenterVC ENDOVENOUS ABL 1ST V RTon 81-72-5362PO ENDOVENOUS ABL 1ST V RTPatient: SHAUNA CHRISTENSEN Exam Date: 02/27/2022 : 1955 Gender:F Ordering : DR MAYANK MICHAEL M.D. Admission #: [id number] Family : Order #: [id number] CLICK HERE TO VIEW EXAM RADIOLOGY REPORT PROCEDURE: VEIN CENTER ENDOVENOUS ABLATION FIRST VEIN RIGHT GREAT SAPHENOUS VEIN COMPARISON: None. INDICATIONS: Pain co-occurrent and due to varicose veins of bilateral legs I83.813 OPERATIVE REPORT: The risks and benefits of the procedure had been previously discussed, and were rediscussed at length. Informed written consent was obtained by me and Dom piña. Time out procedure was [...] by: Mayank Michael MD on 02/27/2022 at 09:29[facility] IMAGE-GUIDED PAP W/AGE BASED SCR PROTOCOLSon 39-53-8844UAKBTSJLrzbjzCmurz DiagnosticsComment on above:Result Comment: This order for age-based cervical cancer and STI screening follows ACOG guidelines(PB 168, 140, YLM227). See individual assays for performing site location.Performed By: #### 28186, 56330 #### [facility], [address] [place] [address] Field Radio Operator: Piter Cortes MD #### 28032, 03680 #### [facility] [address] [place] [address] Field Radio Operator: Piter BARDALESgabo Comment: EXPLANATORY NOTE: The Pap is a screening test for cervical cancer. It is not a diagnostic test and is subject to false negative and false positive results. It is most reliable when a satisfactory sample, regularly obtained, is submitted with relevant clinical findings and history, and when the Pap result is evaluated along with historic and current clinical information.Result Comment: Identification of test requisition and/or specimen(s) was questionable. The below named individual provided this revised patient identification.PATIENT ID APPROVAL TIQ DOCUMENTATIONon [id number] COOPER CMANormalQuest DiagnosticsComment on above: Performed By: #### 49808, 18847 #### [facility], [address] [place] [address] Field Radio Operator: Piter Cortes MD #### 03849, 51779 #### [facility] [address], [address] [place] [address] Field Radio Operator: Pitre Cortse MDTESTS [id number] Diagnostics Comment on above:Performed By: #### 90993, 33632 #### [facility]-[address], [address] [place] [address] Field Radio Operator: Piter Cortes MD #### 90681, 27424 #### [facility] [address], [address] [place] [address] Field Radio Operator: Piter Cortes MDTEST IN [facility] 02-10-2022 CONTAINER TYPE:TPNormalQuest DiagnosticsComment on above:Performed By: #### 68842, 72536 #### [facility]-[address], [address] [place] [address] Field Radio Operator: Piter Cortes MD #### 88996, 09338 #### [facility] [address], [address] [place] [address] Field Radio Operator: Piter Cortes MDQUESTION/PROBLEMNormalQuest DiagnosticsComment on above:Result Comment: MUL FORM RECEIVEDPerformed By: #### 92834, 62809 #### [facility]-[address], [address] [place] [address] Field Radio Operator: Piter Cortes MD #### 28400, 45074 #### [facility] of [address], [address] [place] [address] Field Radio Operator: Piter MARTINEZBluegrass Community Hospital 29-07-3026JURWBUIL INFORMATION:NormalQuest DiagnosticsComment on above:Result Comment: None given Performed By: #### 58507, 12703 #### [facility]-[address], [address] [place] [address] Field Radio Operator: Piter Cortes MD #### 52825, 80872 #### [facility] [address], [address] [place] [address] Field Radio Operator: Piter Cortes MDCOMMENT:NormalQuest DiagnosticsComment on above:Result Comment: This case could not be evaluated [...] with slide preparation; their use is not recommended.Performed By: #### 51210, 97258 #### [facility] [address] Field Radio Operator: Piter Cortes MD #### 54336, 47485 #### [facility] [address] [address] Field Radio Operator: Piter Cortes [facility] – MOOREYTOTECHNOLOGIST:Alicja Note:[facility] DiagnosticsComment on above:Result Comment: Reference Range: ZL, CT(ASCP) CT screening location: [employer] [place] [address].Performed By: #### 94530, 86163 #### [facility] [address] Field Radio Operator: Piter Cortes MD #### 42714, 94503 #### [facility] [address] [address] Field Radio Operator: Piter Cortes MDINTERPRETATION/RESULT:NormalQuest [facility] Comment on above:Result Comment: Negative for intraepithelial lesion or malignancy. Atrophic pattern; predominantly parabasal cellsPerformed By: #### 21278, 40146 #### [facility], [address] [place], [place] [address] Field Radio Operator: Piter Cortes MD #### 89456, 39632 #### [facility] of [address], [address] [place], [place] [address] Field Radio Operator: Piter Cortes MDLMP:NormalQuest DiagnosticsComment on above: Result Comment: None givenPerformed By: #### 71480, 24634 #### [facility]-[address], [address] [place] [address] Field Radio Operator: Piter Cortes MD #### 74137, 60990 #### [facility] [address], [address] [place], [place] [address] Field Radio Operator: Piter BUCHANAN. BX:NormalQuest DiagnosticsComment on above:Result Comment: None givenPerformed By: #### 00220, 49285 #### [facility]-[address], [address] [place], [place] [address] Field Radio Operator: Piter Cortes MD #### 21110, 85883 #### [facility] [address], [address] [place], [place] [address] Field Radio Operator: Piter BUCHANAN. PAP:NormalQuest DiagnosticsComment on above:Result Comment: None givenPerformed By: #### 57293, 47023 #### [facility]-[address], [address] [place] [address] Field Radio Operator: Piter Cortes MD #### 98930, 60522 #### [facility] [address], [address] [place], [place] [address] Field Radio Operator: Piter BAUMOURCE:NormalQuest DiagnosticsComment on above:Result Comment: None givenPerformed By: #### 74951, 08657 #### [facility]-[address], [address] [place], [place] [address] Field Radio Operator: Piter Cortes MD #### 85214, 49459 #### [facility] [address], [address] [place], [place] [address] Field Radio Operator: Piter Merati MDSTATEMENT OF ADEQUACY:NormalQuest [facility]ostics Comment on above:Result Comment: SATISFACTORY FOR EVALUATIONPerformed By: #### 65270, 49216 #### [facility]ostics[facility] [address] [place] [address], [address] [facility] [address] Field Radio Operator: Piter Cortes MD #### 73565, 43949 #### [facility] [address], [address] [place] [address] Field Radio Operator: Piter Cortes MDVC COMP CONSULTATIONon 13-96-0176LR COMP CONSULTATIONPatient: SHAUNA CHRISTENSEN Exam Date: 01/06/2022 : 1955 Gender:F Ordering : DR MAYANK MICHAEL M.D. Admission #: [id number] Family : Order #: [id number] CLICK HERE TO VIEW EXAM RADIOLOGY REPORT [...] with multiple incompetent branch varicosities and several shrink pit supervisor veins. Left leg demonstrates dilated, incompetent great saphenous vein proximally with a few tiny dilated mid calf shrink pit supervisor veins and incompetent branch saphenous varicosities. PHYSICAL [...] arterial disease 5. CEAP: C3, EC, AP, NH PLAN: 1. Continued use of compression stockings [...] by: Candice Best M.D. on 01/06/2022 at 11:45[facility] CenterVC VENOUS REFLUX AMANDA [facility] [place] 04-18-0158LI VENOUS REFLUX AMANDA TPatient: SHAUNA CHRISTENSEN Exam Date: 01/06/2022 : 1955 Gender:F Ordering : DR MAYANK MICHAEL M.D. Admission #: [id number] Family : Order #: [id number] CLICK HERE TO VIEW EXAM RADIOLOGY REPORT [...] chronic thrombus visualized Compressibility: Normal Flow: Normal Restaurant Expeditor: Dist/med calf 3.1mm with 0s reflux. Mid/med calf 4.2mm with 0s reflux. Tech Note: Incompetent SFJ and GSV. Patent varicose vein prox/med calf 5.5mm with 1.0s reflux. Patent varicose vein prox med thigh 3.2mm with 0s reflux. CONCLUSION: 1. 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 2. 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 3. Left lower extremity demonstrates dilated great saphenous and anterior accessory saphenous veins, but no significant reflux. 4. Consultation for endovenous ablation is recommended. Dictated by: Candice Best M.D. on 01/06/2022 at 11:14 Approved by: Candice Best M.D. on 01/06/2022 at 11:20[facility] CenterMAGNESIUMon 60-85-8357Sdggsgnrm [Mass/Vol]2.2 mg/dLNormal1.5-2.5[facility] DiagnosticsComment on above:Order Comment: FASTING:NO FASTING: NOPerformed By: #### 622 #### [facility] [address], [address] [place] [address] Field Radio Operator: Piter Cortes MDXR CHEST 2 Von 56-94-1694GM CHEST 2 VEXAM: XR CHEST 2 V EXAM: XR CHEST 2 V INDICATION: 66 years old Female Dyspnea COMPARISON: None. FINDINGS: The cardiac silhouette is normal. There is no pulmonary edema. The lungs are clear. There is no pneumonia. There is no pneumothorax. There is no abnormal foreign body. IMPRESSION: There is no acute abnormality. Electronically authenticated by: ALTON BARRERA Date: 2021-11-25 12:49[facility] CenterCOMPREHENSIVE METABOLIC PANELon 21-76-7592Xbsvscy [Mass/Vol]4.1 g/dLNormal3.6-5.1[facility] DiagnosticsComment on above:Performed By: #### 60545, 01552, 1710 #### [facility] [address], [address] [place] [address] Field Radio Operator: Piter Cortes MDAlbumin/Globulin [Mass ratio]1.5 {ratio}Normal 1.0-2.5Quest DiagnosticsComment on above:Performed By: #### 85530, 57748, 7390 #### [facility] [address], [address] [place] [address] Field Radio Operator: Piter Cortes MDALP [Catalytic activity/Vol]86 U/JEriluh60-108 [facility] DiagnosticsComment on above:Performed By: #### 38767, 58007, 7600 #### [facility] of [address], [address] [place] [address] Field Radio Operator: Piter Cortes MDALT [Catalytic activity/Vol]13 U/LNormal6-29 [facility] DiagnosticsComment on above:Performed By: #### 29287, 78260, 7600 #### [facility] of [address], [address] [place] [address] Field Radio Operator: Piter Cortes MDAST [Catalytic activity/Vol]17 U/CSuitst19-31 [facility] DiagnosticsComment on above:Performed By: #### 27333, 36118, 7600 #### [facility] of [address], [address] [place] [address] Field Radio Operator: Piter Cortes MDBilirubin [Mass/Vol]0.5 mg/dLNormal0.2-1.2 [facility] DiagnosticsComment on above:Performed By: #### 47497, 64436, 7600 #### [facility] of [place] [address] Field Radio Operator: Piter Cortes MDBUN/CREATININE RATIONOT APPLICABLENormal6-22 [facility] DiagnosticsComment on above:Performed By: #### 79657, 20030, 7600 #### [facility] of [place] [address] Field Radio Operator: Piter Cortes MDCalcium [Mass/Vol]9.2 mg/dLNormal8.6-10.4Quest DiagnosticsComment on above:Performed By: #### 31870, 33934, 7600 #### [facility] of [place] [address] Field Radio Operator: Piter Cortes MDChloride [Moles/Vol]106 mmol/YReabon71-531 [facility] DiagnosticsComment on above:Performed By: #### 58392, 17232, 0 #### [facility] of [address], [address] [place] [address] Field Radio Operator: Piter Cortes MDCO2 [Moles/Vol]26 mmol/JPaqzsk67-98Decni DiagnosticsComment on above:Performed By: #### 12665, 04738, 7600 #### [facility] of [address], [address] [place] [address] Field Radio Operator: Piter PETERSONreatinine [Mass/Vol]0.75 mg/dLNormal0.50-0.99 [facility] DiagnosticsComment on above:Result Comment: For patients >49 years of age, the reference limit for Creatinine is approximately 13% higher for people identified as -Mauritian.Performed By: #### 98780, 84940, 0 #### [facility] of [address], [address] [place] [address] Field Radio Operator: Piter Cortes MDeGFR NON-AFR. IXCUURHJ64 mL/min/1.53p3Lzzvcm> OR = 60Quest DiagnosticsComment on above:Performed By: #### 54234, 63628, 0 #### [facility] of [place] [address] Field Radio Operator: Piter Cortes MDGFR/1.73 sq M.predicted among blacks MDRD (S/P/Bld) [Vol rate/Area]96 mL/min/{1.73_m2}Normal> OR = 60[facility] Comment on above:Performed By: #### 38556, 95400, 0 #### [facility] of [address] [address], [address] [place] [address] Field Radio Operator: Piter Cortes MDGlobulin (S) [Mass/Vol]2.7 g/dLNormal1.9-3.7 [facility] DiagnosticsComment on above:Performed By: #### 65638, 96899, 7600 #### [facility] [place] [address] Field Radio Operator: Piter Cortes MDGlucose [Mass/Vol]138 mg/tUTtxjgw60-765Cgylw DiagnosticsComment on above:Result Comment: Non-fasting reference interval For someone without known diabetes, a glucose value >125 mg/dL indicates that they may have diabetes and this should be confirmed with a follow-up test.Performed By: #### 08428, 06605, 7600 #### [facility] [place] [address] Field Radio Operator: Piter Cortes MDPotassium [Moles/Vol]4.0 mmol/LNormal3.5-5.3 [facility] DiagnosticsComment on above:Performed By: #### 57699, 89229, 7600 #### [facility] [place] [address] Field Radio Operator: Piter Cortes MDProtein [Mass/Vol]6.8 g/dLNormal6.1-8.1Quest DiagnosticsComment on above:Performed By: #### 01305, 04942, 7600 #### [facility] [place] [address] Field Radio Operator: Piter Cortes MDSodium [Moles/Vol]140 mmol/MThikic658-752Hrdre DiagnosticsComment on above:Performed By: #### 09595, 01379, 7600 #### [facility] [place] [address] Field Radio Operator: Piter Cortes MDUrea nitrogen [Mass/Vol]19 mg/dLNormal7-25 [facility] DiagnosticsComment on above:Performed By: #### 82572, 16231, 7600 #### [facility] [place] [address] Field Radio Operator: Piter Cortes MDLIPID PANEL, STANDARDon [id number] [Mass/Vol]205 mg/dLHigh<200Quest DiagnosticsComment on above:Order Comment: FASTING:NO FASTING: NOPerformed By: #### 86686, 30752, 7600 #### [facility] [address], [address] [place] [address] Field Radio Operator: Piter Cortes MDCholesterol in HDL [Mass/Vol]52 mg/dLNormal> OR = 50Quest DiagnosticsComment on above:Order Comment: FASTING:NO FASTING: NOPerformed By: #### 56696, 06497, 7600 #### [facility] [address], [address] [place] [address] Field Radio Operator: Piter PETERSONholesterol in LDL [Mass/Vol]117 mg/dLHigh [facility] DiagnosticsComment on above:Order Comment: FASTING:NO FASTING: NOResult Comment: Reference range: <100 Desirable range <100 mg/dL for primary prevention; <70 mg/dL for patients with CHD or diabetic patients with > or = 2 CHD risk factors. LDL-C is now calculated using the Luis Daniel calculation, which is a validated novel method providing better accuracy than the Friedewald equation in the estimation of LDL-C. Too ISABEL et al. KANE. 2013;310(19): 6950-1670 (http://education.Wepa.Kavam.com/faq/DZM894)Performed By: #### 12405, 75215, 7600 #### [facility] [address], [address] [place] [address] Field Radio Operator: Piter Ortiz.total/Cholesterol in HDL [Mass ratio]3.9 {ratio}Normal<5.0Quest DiagnosticsComment on above:Order Comment: FASTING:NO FASTING: NOPerformed By: #### 41666, 48827, 7600 #### [facility] [address], [address] [place] [address] Field Radio Operator: Piter AGARWAL HDL JNXACBJTLXH068 mg/dL (calc)High<130 Quest DiagnosticsComment on above:Order Comment: FASTING:NO FASTING: NOResult Comment: For patients with diabetes plus 1 major ASCVD risk factor, treating to a non-HDL-C goal of <100 mg/dL (LDL-C of <70 mg/dL) is considered a therapeutic option.Performed By: #### 72342, 92736, 7600 #### [facility] [place] [address] Field Radio Operator: Piter Cortes MDTriglyceride [Mass/Vol]236 mg/dLHigh<150Quest DiagnosticsComment on above:Order Comment: FASTING:NO FASTING: NOResult Comment: If a non-fasting specimen was collected, consider repeat triglyceride testing on a fasting specimen if clinically indicated. Zaira et al. J. of Clin. Lipidol. 2015;9:129-169.Performed By: #### 30680, 36120, 7600 #### [facility] [place] [address] Field Radio Operator: Piter Cortes MD[facility] T4on [id number] T4 [Mass/Vol]0.9 ng/dLNormal0.8-1.8Quest DiagnosticsComment on above:Performed By: #### 84816, 22602, 7600 #### [facility] [place] [address] Field Radio Operator: Piter Cortes [facility] Qn1.53 m[IU]/LNormal0.40-4.50Quest DiagnosticsComment on above:Performed By: #### 61659, 50375, 7600 #### [facility] [place] [address] Field Radio Operator: Piter Cortes MD Vital Signs Date TimeVital SignValuePerforming RceyblrylQmrulzad06-75-0039 13:18-0400 Diastolic blood cafnngmb59 mm[Hg]Pedro Furlogillian DO Work Phone: [facility]10-21-2025 13:18-0400 Heart rate71 /minDennis Furlong DO Work Phone: [facility]10-21-2025 13:18-0400 Respiratory rate20 /minDennis Furlong DO Work Phone: [phone]10-21-2025 13:18-0400 SaO2% (BldA) [Mass fraction]99 %Pedro Furlong DO Work Phone: [phone]10-21-2025 13:18-0400 Systolic blood ahakuhyl499 mm[Hg]Pedro Furlong DO Work Phone: [address] [place], [place] [address]10-21-2025 10:41-0400 Body .02 cmDennis Furlong DO Work Phone: 1(758)[address] [place], [place] [address]10-21-2025 10:41-0400 Body tjrexg78.64 kgDennis Furlong DO Work Phone: 1(346)[address] [place], [place] [address]9-17-2025 13:25-0400 Body njljoa282.1 cmDennis Furlong DO Work Phone: 1(421)[address] [place], [place] [address]9-17-2025 13:25-0400 Body mass index (BMI) [Ratio]30.4 kg/m6Aqbuyj Furlong DO Work Phone: 1(048)[address] [place], [place] [address]9-17-2025 13:25-0400 Body xobmvi92 kgDennis Furlong DO Work Phone: 1(942)[address] [place], [place] [address]9-17-2025 13:25-0400 Diastolic blood gbliqowu24 mm[Hg]Pedro Furlong DO Work Phone: 1419)[facility] [place], [place] 6415409-17-2025 13:25-0400 Heart rate86 /minDennis Furlong DO Work Phone: 1(747)[facility] [place], [place] [address]409-17-2025 13:25-0400 Systolic blood asddfllw378 mm[Hg]Pedro Furlong DO Work Phone: 1(527)[address] [place], [place] [address]8-11-2025 09:17-0400 Body lytowfghzck89.1 [degF]Chair Black Oak Work Phone: [place] [address]-11-2025 09:17-0400Diastolic blood ifnmdbyu88 mm[Hg]Chair [place] Work Phone: [facility]08-11-2025 09:17-0400Heart rate63 /min Chair Evelyn Work Phone: [facility]08-11-2025 09:17-0400Respiratory rate 18 /minChair Black Oak Work Phone: [facility]08-11-2025 09:17-6712NrD8% (BldA) [Mass fraction]99 %Chair Black [place] Work Phone: [facility]08-11-2025 09:17-0400Systolic blood mm[Hg]Chair [place] Work Phone: [facility]08-04-2025 09:45-0400Body temperature 98.71 [degF]Chair Evelyn Work Phone: [facility]08-04-2025 09:45-0400Diastolic blood vhpbpaoo87 mm[Hg]Chair [place] Work Phone: [facility]08-04-2025 09:45-0400Heart rate67 /min Chair Evelyn Work Phone: [facility]08-04-2025 09:45-0400Respiratory rate 16 /minChair Black Oak Work Phone: [facility]08-04-2025 09:45-4249CzQ8% (BldA) [Mass fraction]99 %Chair Black Oak Work Phone: [facility]08-04-2025 09:45-0400Systolic blood bgifimui127 mm[Hg]Chair Black Oak Work Phone: [facility]07-28-2025 09:31-0400Body temperature 98.1 [degF]Chair [place] Work Phone: [facility]07-28-2025 09:31-0400Diastolic blood fvvbokrx66 mm[Hg]Chair Evelyn Work Phone: [facility]07-28-2025 09:31-0400Heart rate67 /min Chair Evelyn Work Phone: [facility]07-28-2025 09:31-0400Respiratory rate 16 /minChair Evelyn Work Phone: [facility]07-28-2025 09:31-4201ImH0% (BldA) [Mass fraction]98 %Chair Evelyn Work Phone: [facility]07-28-2025 09:31-0400Systolic blood syjcuwmb975 mm[Hg]Chair Evelyn Work Phone: [facility]07-21-2025 08:30-0400Body mass index (BMI) [Ratio]33.29 kg/b4Npxem Elie PA-C Work Phone: [facility]07-21-2025 08:30-0400Body temperature 97.59 [degF]Suzie Elie PA-C Work Phone: [facility]07-21-2025 08:30-0400Body yurygs03.8 kgMindy Elie PA-C Work Phone: [facility]07-21-2025 08:30-0400Diastolic blood zfucveiy17 mm[Hg]Suzie Elie PA-C Work Phone: [facility]07-21-2025 08:30-0400Heart rate66 /min Suzie Elie PA-C Work Phone: [facility]07-21-2025 08:30-0400Respiratory rate 16 /minMindy Elie PA-C Work Phone: [facility]07-21-2025 08:30-1013DfO1% (BldA) [Mass fraction]98 %Suzie Elie PA-C Work Phone: [facility]07-21-2025 08:30-0400Systolic blood tbwnmpwi027 mm[Hg]Suzie Patel PA-C Work Phone: [facility]07-10-2025 13:35-0400Body ivfbag225.5 cmDennis Furlong DO Work Phone: [facility]07-10-2025 13:35-0400Body mass index (BMI) [Ratio]34.33 kg/x2Peykfh Furlong DO Work Phone: [facility]07-10-2025 13:35-0400Body bofcmm59.14 kgDennis Furlong DO Work Phone: [facility]07-10-2025 13:35-0400Diastolic blood zrhxjork99 mm[Hg]Pedro Furlong DO Work Phone: [facility]07-10-2025 13:35-0400Systolic blood mm[Hg]Pedro Furlong DO Work Phone: [facility]05-02-2025 10:30-0400Body anoibt155 cmDennis Furlong DO Work Phone: [facility]05-02-2025 10:30-0400Body mass index (BMI) [Ratio]32.96 kg/b5Kugsnm Furlong DO Work Phone: [facility]05-02-2025 10:30-0400Body astopicudrw39 [degF]Pedro Furlong DO Work Phone: [facility]05-02-2025 10:30-0400Body .37 kgDennis Furlong DO Work Phone: [facility]05-02-2025 10:30-0400Diastolic blood xouevusz89 mm[Hg]Pedro Furlong DO Work Phone: [facility]05-02-2025 10:30-0400Heart rate 58 /minDennis Furlong DO Work Phone: [facility] [employer] Dbquxz25-72-9972 10:30-0400 Respiratory rate18 /minDchuck Rutherfordng DO Work Phone: [facility]05-02-2025 10:30-7502QeR3% (BldA) [Mass fraction]99 %Pedro Rutherfordng DO Work Phone: [facility]05-02-2025 10:30-0400Systolic blood xgzecuvp433 mm[Hg]Pedro Rutherfordng DO Work Phone: [facility]04-16-2025 10:35-0400Body qqugtf097.6 cmMindy Elie PA-C Work Phone: [facility]04-16-2025 10:35-0400Body mass index (BMI) [Ratio]33.6 kg/r6Wqipw Elie PA-C Work Phone: [facility]04-16-2025 10:35-0400Body temperature 97.3 [degF]Suzie Elie PA-C Work Phone: [facility]04-16-2025 10:35-0400Body eyyujs87.6 kgMindy Elie PA-C Work Phone: [facility]04-16-2025 10:35-0400Diastolic blood cdshakrw25 mm[Hg]Suzie Elie PA-C Work Phone: [facility]04-16-2025 10:35-0400Heart rate63 /min Suzie Elie PA-C Work Phone: [facility]04-16-2025 10:35-0400Respiratory rate 16 /minMindy Elie PA-C Work Phone: [facility]04-16-2025 10:35-1064BrZ1% (BldA) [Mass fraction]100 %Suzie Elie PA-C Work Phone: [facility]04-16-2025 10:35-0400Systolic blood mpotriae642 mm[Hg]Suzie Patel PA-C Work Phone: [facility]01-16-2025 15:00-0500Body temperature 97.7 [degF]Chair Evelyn Work Phone: 1(883) [phone]16-2025 15:00-0500Diastolic blood rgkjquys21 mm[Hg]Chair [place] Work Phone: [facility]01-16-2025 15:00-0500Heart rate72 /min Chair [place] Work Phone: [facility]01-16-2025 15:00-0500Respiratory rate 18 /minChair Evelyn Work Phone: [facility]01-16-2025 15:00-3015PlK9% (BldA) [Mass fraction]100 %Chair [place] Work Phone: [facility]01-16-2025 15:00-0500Systolic blood hoypzafj665 mm[Hg]Chair [place] Work Phone: [facility]01-10-2025 14:20-0500Body temperature 97.7 [degF]Chair [place] Work Phone: [facility]01-10-2025 14:20-0500Diastolic blood vsqxcmoe49 mm[Hg]Chair [place] Work Phone: [facility]01-10-2025 14:20-0500Heart rate83 /min Chair Evelyn Work Phone: [facility]01-10-2025 14:20-0500Respiratory rate 18 /minChair Evelyn Work Phone: [place] [address]-10-2025 14:20-8011JeP2% (BldA) [Mass fraction]100 %Chair [place] Work Phone: [facility]01-10-2025 14:20-0500Systolic blood hnxgskoa363 mm[Hg]Chair [place] Work Phone: [facility]01-03-2025 12:49-0500Body temperature 98.4 [degF]Chair Evelyn Work Phone: [facility]01-03-2025 12:49-0500Diastolic blood mm[Hg]Chair Evelyn Work Phone: [facility]01-03-2025 12:49-0500Heart rate69 /min Chair [place] Work Phone: [facility]01-03-2025 12:49-0500Respiratory rate 18 /minChair Black Oak Work Phone: [facility]01-03-2025 12:49-6818SaW2% (BldA) [Mass fraction]96 %Chair Evelyn Work Phone: [facility]01-03-2025 12:49-0500Systolic blood pquzdaym794 mm[Hg]Chair [place] Work Phone: [facility]12-27-2024 09:46-0500Body temperature 97.9 [degF]Chair Evelyn Work Phone: [facility]12-27-2024 09:46-0500Diastolic blood edhuthhx07 mm[Hg]Chair [place] Work Phone: [facility]12-27-2024 09:46-0500Heart rate68 /min Chair [place] Work Phone: [facility]12-27-2024 09:46-0500Respiratory rate 18 /minChair Black Oak Work Phone: [facility]12-27-2024 09:46-5224SiI7% (BldA) [Mass fraction]99 %Chair Black Oak Work Phone: [facility]12-27-2024 09:46-0500Systolic blood biyvknpl500 mm[Hg]Chair Evelyn Work Phone: [facility]12-19-2024 13:21-0500Body temperature 97.3 [degF]Chair Evelyn Work Phone: [place] [address]-19-2024 13:21-0500Diastolic blood rakhumhv87 mm[Hg]Chair Evelyn Work Phone: [place] [address]-19-2024 13:21-0500Heart rate75 /min Chair Evelyn Work Phone: [place] [address]-19-2024 13:21-0500Respiratory rate 16 /minChair Evelyn Work Phone: [place] [address]-19-2024 13:21-0715CzH7% (BldA) [Mass fraction]97 %Chair Evelyn Work Phone: [place] [address]-19-2024 13:21-0500Systolic blood mm[Hg]Chair Evelyn Work Phone: [place] [address]-12-2024 10:36-0500Body tqshuc824.6 cmMindy Elie PA-C Work Phone: [place] [address]-12-2024 10:36-0500Body mass index (BMI) [Ratio]32.54 kg/c1Agyht Elie PA-C Work Phone: [place] [address]-12-2024 10:36-0500Body temperature 97.5 [degF]Suzie Elie PA-C Work Phone: [place] [address]-12-2024 10:36-0500Body haerbg99.9 kgMindy Elie PA-C Work Phone: [place] [address]-12-2024 10:36-0500Diastolic blood kfwbvoui96 mm[Hg]Suzie Elie PA-C Work Phone: [place] [address]-12-2024 10:36-0500Heart rate70 /min Suzie Elie PA-C Work Phone: [place] [address]-12-2024 10:36-0500Respiratory rate 16 /minMindy Elie PA-C Work Phone: [facility]12-12-2024 10:36-4118RpQ8% (BldA) [Mass fraction]99 %Suzie Elie PA-C Work Phone: [facility]12-12-2024 10:36-0500Systolic blood fzkvwati672 mm[Hg]Suzie Elie PA-C Work Phone: [facility]10-28-2024 14:15-0400Body ollkml021.6 cmMindy Elie PA-C Work Phone: [facility]10-28-2024 14:15-0400Body mass index (BMI) [Ratio]32.27 kg/t4Nydax Elie PA-C Work Phone: [facility]10-28-2024 14:15-0400Body temperature 97.9 [degF]Suzie Elie PA-C Work Phone: [facility]10-28-2024 14:15-0400Body liezbl40.2 kgMindy Elie PA-C Work Phone: [facility]10-28-2024 14:15-0400Diastolic blood qsgkwlup27 mm[Hg]Suzie Elie PA-C Work Phone: [facility]10-28-2024 14:15-0400Heart rate86 /min Suzie Elie PA-C Work Phone: [facility]10-28-2024 14:15-0400Respiratory rate 16 /minMindy Elie PA-C Work Phone: [facility]10-28-2024 14:15-4971SvY3% (BldA) [Mass fraction]98 %Suzie Elie PA-C Work Phone: [facility]10-28-2024 14:15-0400Systolic blood mm[Hg]Suzie Elie PA-C Work Phone: [facility]08-15-2024 13:24-0400Body cm Pedro Ojedalong DO Work Phone: [facility]08-15-2024 13:24-0400Body mass index (BMI) [Ratio]32.1 kg/w4Kowogi Furlong DO Work Phone: [facility]08-15-2024 13:24-0400Body qfuppogibwo14.71 [degF]Pedro Rutherfordng DO Work Phone: [facility]08-15-2024 13:24-0400Body ytkecx53.19 kgPedro Rutherfordng DO Work Phone: [facility]08-15-2024 13:24-0400Diastolic blood uifnlkcb11 mm[Hg]Pedro Ojedalong DO Work Phone: [facility]08-15-2024 13:24-0400Heart rate 86 /Herminia Rutherfordng DO Work Phone: [facility]08-15-2024 13:24-0400 Respiratory rate20 /Richelleis Maring DO Work Phone: [facility]08-15-2024 13:24-9185UhB8% (BldA) [Mass fraction]96 %Pedro Ojedalong DO Work Phone: [facility]08-15-2024 13:24-0400Systolic blood seldvygt001 mm[Hg]Pedro Rutherfordng DO Work Phone: [facility]08-14-2024 09:09-0400Body cnehup228.1 cm[facility]08[facility]14-20[facility] 09:09-0400Body mass index (BMI) [Ratio]30 kg/s0NzbcntelsGuernsey Memorial Hospital08-14-2024 09:09-0400Body .8 [degF][facility]08-14-2024 09:090400Body kosagb45.87 [facility]08-14-2024 09:090400Diastolic blood uipoeeph95 mm[Hg][facility] 01-16-2024 09:090400Heart rate75 /[facility] 01-16-2024 09:090400Respiratory rate18 /[facility] 01-16-2024 09:09-8333WrC3% (BldA) [Mass fraction]99 %[facility]08-14-2024 09:09-0400Systolic blood mwbdtukh998 mm[Hg][facility]07-09-2024 15:06-0400Body ocxozs019 cmDennis Furlong DO Work Phone: [facility]07-09-2024 15:06-0400Body mass index (BMI) [Ratio]32.28 kg/e6Nynqmt Furlong DO Work Phone: [facility]07-09-2024 15:06-0400Body roffze88.64 kgDennis Furlong DO Work Phone: [facility] [employer] Itqafy68-15-1618 15:06-0400Diastolic blood rpmhcgta28 mm[Hg]Pedro Furlong DO Work Phone: [facility] [employer] Givuqr62-11-9690 15:06-0400Systolic blood bdokdsbf982 mm[Hg]Pedro Furlong DO Work Phone: [facility] [employer] Qksibs76-66-1939 11:09-0400Body cmDennis Furlong DO Work Phone: [facility] [employer] Afberw35-34-8171 11:09-0400Body mass index (BMI) [Ratio]32.13 kg/r3Rbgkjj Furlong DO Work Phone: [facility] [employer] Klrbhr76-00-6482 11:09-0400Body bzhswopddmk73.5 [degF]Pedro Furlong DO Work Phone: [facility] [employer] Pnekmv23-46-4712 11:09-0400Body .28 kgPedro Ojedalong DO Work Phone: [facility] Rsjlzf00-15-0169 11:09-0400Diastolic blood pyvxzgjw96 mm[Hg]Pedro Ojedalong DO Work Phone: [facility] [employer] Yvkhgo98-36-7246 11:09-0400Heart rate 59 /minDennis Lynettelong DO Work Phone: [facility] [employer] Ffnqyo90-36-1529 11:095094PpQ8% (BldA) [Mass fraction]99 %Pedro Rutherfordng DO Work Phone: [facility] Myudno80-40-2689 11:090400Systolic blood ufdurwsz188 mm[Hg]Pedro Rutherfordng DO Work Phone: [facility] [employer] Mbbrjj36-68-8822 09:00-0500Body gvxasq274 cmJanelle Auguste APRN-WAREHOUSE SUPERVISOR 3RD SHIFT Work Phone: [facility] [employer] Iqimoz60-10-3285 09:00-0500Body mass index (BMI) [Ratio]32.38 kg/m2Janelle Auguste APRN-WAREHOUSE SUPERVISOR 3RD SHIFT Work Phone: [facility] [employer] Vaocmi87-55-6721 09:00-0500Body kmwdymsqiyg72.39 [degF]Janelle Auguste APRN-WAREHOUSE SUPERVISOR 3RD SHIFT Work Phone: [facility] [employer] Ijxswg09-72-8899 09:00-0500Body nfeunj19.92 kgJanelle Auguste OPERATIONS WELDER-WAREHOUSE SUPERVISOR 3RD SHIFT Work Phone: [facility] [employer] Zcrlir03-92-3333 09:00-0500Diastolic blood mm[Hg]Janelle Auguste APRN-WAREHOUSE SUPERVISOR 3RD SHIFT Work Phone: [facility]01-16-2024 09:00-0500Heart rate 89 /minJanelle Auguste OPERATIONS WELDER-WAREHOUSE SUPERVISOR 3RD SHIFT Work Phone: [facility] [employer] Byqpjx01-26-7041 09:00-6030DaQ1% (BldA) [Mass fraction]100 %Janelle Auguste OPERATIONS WELDER-WAREHOUSE SUPERVISOR 3RD SHIFT Work Phone: [employer]01-16-2024 09:00-0500Systolic blood ailckgfq971 mm[Hg]Janelle Auguste OPERATIONS WELDER-WAREHOUSE SUPERVISOR 3RD SHIFT Work Phone: [employer]11-22-2023 10:50-0500Body bbmlxo059.1 cmPamelvictoriano Dobson Other [employer] Other 11-22-2023 10:50-0500Body mass index (BMI) [Ratio] 29.45 kg/n5ZojpwqTaryn Dobson Other [employer] Other 11-22-2023 10:50-0500Body jiopzyeibwk93.8 [degF]Taryn Dobson Other [employer] Other 11-22-2023 10:50-0500Body ijjmys86.29 kgJose Lleandro Olya Other [employer] Other 11-22-2023 10:50-0500Diastolic blood srgkqijs17 mm[Hg] Taryn Dboson Other [employer] Other 11-22-2023 10:50-0500Respiratory rate18 /minTaryn Dobson Other [employer] Other 11-22-2023 10:50-9359YbU7% (BldA) [Mass fraction]99 % Tayrn Dobson Other [employer] Other 11-22-2023 10:50-0500Systolic blood gsjhyknk027 mm[Hg] Taryn Dobson Other [employer] Other 05-03-2023 11:30-0400Body yvfaqb911.1 cmPamelvictoriano Dobson Other [employer] Other 05-03-2023 11:30-0400Body mass index (BMI) [Ratio] 31.51 kg/x6QmkjeqTaryn Dobson Other [employer] Other 05-03-2023 11:30-0400Body kikkkvrcyxw99.7 [degF]Taryn Brownmond Other [employer] Other 05-03-2023 11:30-0400Body juzyaz16.91 kgTaryn Dobson Other [employer] Other 05-03-2023 11:30-0400Diastolic blood zmonpsjd10 mm[Hg] Taryn Brownmond Other [employer] Other 05-03-2023 11:30-0400Respiratory rate18 /minTaryn Dobson Other [employer] Other 05-03-2023 11:30-6146AhB7% (BldA) [Mass fraction]96 % Taryn Olya Other [employer] Other 05-03-2023 11:30-0400Systolic blood hjraeizx874 mm[Hg] Taryn Olya Other [employer] Other 03-30-2023 15:25-0400Body tjuysd306.6 cmAugustin Vital MD Work Phone: [facility]03-30-2023 15:25-0400Body temperature 97.11 [degF]Augustin Vital MD Work Phone: [facility]03-30-2023 15:25-0400Body zddicr50.73 kgAugustin Vital MD Work Phone: [facility]03-30-2023 15:25-0400Diastolic blood hidhgpah55 mm[Hg]Augustin Vital MD Work Phone: [facility]03-30-2023 15:25-0400Heart rate75 /min Augustin Vital MD Work Phone: [facility]03-30-2023 15:25-0400Respiratory rate 16 /minAugustin Vital MD Work Phone: [facility]03-30-2023 15:25-4013BgS0% (BldA) [Mass fraction]99 %Augustin Vital MD Work Phone: [facility]03-30-2023 15:25-0400Systolic blood izccsrju501 mm[Hg]Augustin Vital MD Work Phone: [facility]01-19-2023 15:54-0500Body fyijgs876.6 cmAugustin Vital MD Work Phone: [facility]01-19-2023 15:54-0500Body temperature 97.7 [degF]Augustin Vital MD Work Phone: [facility]01-19-2023 15:54-0500Body glzaov77.91 kgAugustin Vital MD Work Phone: [facility]01-19-2023 15:54-0500Diastolic blood oxbixsvt59 mm[Hg]Augustin Vital MD Work Phone: [facility]01-19-2023 15:54-0500Heart rate84 /min Augustin Vital MD Work Phone: [facility]01-19-2023 15:54-0500Respiratory rate 16 /minAugustin Vital MD Work Phone: [facility]01-19-2023 15:54-5727BgQ1% (BldA) [Mass fraction]98 %Augustin Vital MD Work Phone: [facility]01-19-2023 15:54-0500Systolic blood mm[Hg]Augustin Vital MD Work Phone: [facility] Encounters Encounter DateEncounter [facility] ProviderFacilityStart: 03-24-2025 End: [id number] AsaadFacility:[facility] Start: [id number]-patient / Non-visitImajulio Plummer MD-[facility] Work Phone: Start: 92-21-7032ohpegktskiXLVNWG C STEPANIC [facility]Start: 03-17[facility]2025 End: 56-61-4766Okrgnj flowsheetJr. Krishna Trujillo DO Work Phone: [facility]Start: 03-17-2025 End: 41-70-1268Pocccq flowsheetJr. Krishna Trujillo DO Work Phone: [facility] [place] [facility]icsStart: 03-17-2025 End: 89-23-5781Ysqanp outpatient visit 15 minutesJr. Krishna Trujillo DO Work Phone: [facility] [place] OrthopaedicsComment on above:Acute pain of right knee; LymphedemaStart: 03-17-2025 End: 16-22-4031mhejhykhvnVM., KRISHNA TRUJILLONot AvailableStart: 03-05-2025 End: 13-49-5240YbjzivQsiurr G Furlong DO Work Phone: [facility] MedicineStart: 02-18-2025 End: 13-48-4363mecapqrxpiAqvpat Furlong DO Work Phone: [facility] Work Phone: Start: 02-18-2025 End: 38-61-9440Tpokfhv encounter procedureImajulio Plummer MD-[facility] Work Phone: Start: 02-12-2025 End: 12-35-3710Jcepkyznn encounterJrNoemi Trujillo DO Work Phone: [facility]opaedicsComment on above:dental appointmentStart: 01-12-2025 End: 68-88-1753bmlobzxpknMteki [address] Work Phone: Hematology/OncologyComment on above:Iron deficiency anemia, unspecified iron deficiency anemia type (Primary Dx)Start: 01-05-2025 End: 60-64-6475oklywhzptkMgwok [address] [place] Work Phone: Hematology/OncologyComment on above:Iron deficiency anemia, unspecified iron deficiency anemia type (Primary Dx)Start: 12-29-2024 End: 46-22-2076chmqihkjktRmyjv 4 [place] Work Phone: Hematology/OncologyComment on above:Iron deficiency anemia, unspecified iron deficiency anemia type (Primary Dx)Start: 12-22-2024 End: 02-71-2160Zfqxpcrvq encounterMinhermila Patel PA-C Work Phone: Cancer Appts MCComment on above:Future Appointment Start: 12-22-2024 End: 90-72-8393Voihgt outpatient visit 25 minutesMinhermila Patel PA-C Work Phone: Hematology/OncologyComment on above:Iron deficiency anemia, unspecified iron deficiency anemia type (Primary Dx)Start: 12-22-2024 End: 61-85-0299ehfhywqucqSBVSKB GERARD FURLONGFacility:[facility] Start: 12-15-2024 End: 42-47-5573Xyswkvvft encounterNatgio Aguiar RNHematology/OncologyComment on above:Lab OrdersStart: 12-11-2024 End: 17-93-6108Napqizq encounter Georgia Rodriguez DO Work Phone: [facility] - Family MedicineComment on above:Medicare annual wellness visit, subsequent (Primary Dx); Screening for depressionStart: 12-11-2024 End: 03-30-2257lxptkeqdhqAEFQBHGothenburg Memorial Hospital Ambulatory PPGStart: 11-05-2024 End: 39-45-2583UtikwcZfjfrp G Furlong DO Work Phone: [facility] MedicineStart: 10-11-2024 End: 73-02-1470WoetifVlslbn G Furlong DO Work Phone: [facility] Hospital MedicineStart: 10-03-2024 End: 07-80-1277Zakehd outpatient visit 25 minutesW[facility] DO Work Phone: [facility] Internal Medicine [facility] HospitalComment on above:Mixed hyperlipidemia (Primary Dx); Acquired hypothyroidism; Obstructive sleep apnea; Pedal edema; Class 1 obesity due to excess calories with serious comorbidity and body mass index (BMI) of 32.0 to 32.9 in adultStart: 10-03-2024 End: 68-81-1981ssbngisiqmGKADEEGothenburg Memorial Hospital Ambulatory PPGStart: 09-18-2024 End: 75-06-7409Dhmqcz-up encounterSuzie Patel PA-C Work Phone: Hematology/OncologyComment on above:ResultsStart: 09-17-2024 End: 98-62-3102Jqbslsskx encounterSuzie Patel PA-C Work Phone: Cancer Appts MCComment on above:Lab OrdersStart: 09-17-2024 End: 06-43-9665Hknvax outpatient visit 25 minutesSuzie Patel PA-C Work Phone: Hematology/OncologyComment on above:Iron deficiency anemia, unspecified iron deficiency anemia type (Primary Dx)Start: 09-17-2024 End: 86-84-2832udelserxsmBETMGBSelect Specialty Hospital-Ann ArborFacility:[facility] Start: 08-14-2024 End: 69-41-7211Ynuhvzgru encounterJenna Rodriguez CMADoctors Hospitalca Physicians Internal Medicine [facility] Hospital MedicineStart: 08-09-2024 End: 52-85-3987VuujgePwjypt Anitra Rodriguez DO Work Phone: [facility] - Family MedicineStart: 07-08-2024 End: 77-07-0569Uiqbek flowsheetNatalie A Felter OPERATIONS WELDER-LADIES' HAT TRIMMER Work Phone: noms SWS DERMStart: 07-08-2024 End: 56-88-7471Zorsnz flowsheetNatalie A Felter OPERATIONS WELDER-LADIES' HAT TRIMMER Work Phone: NOIQ SWS DERMStart: 07-08-2024 End: 21-28-3376Nxbdzi outpatient visit 10 minutesNatalie A Felter OPERATIONS WELDER-LADIES' HAT TRIMMER Work Phone: noms SWS DERMComment on above:Seborrheic keratosis (Primary Dx); Inflamed seborrheic keratosisStart: 07-08-2024 End: 91-14-6438gvrafclybxHOIBVZU A FELTERNot AvailableStart: 06-19-2024 End: 09-23-1359xolhzcqdunYiobn Fundability Work Phone: Hematology/OncologyComment on above:Iron deficiency anemia, unspecified iron deficiency anemia type (Primary Dx)Start: 06-13-2024 End: 36-72-2767zycxcxlsjfXypti [employer] Work Phone: Hematology/OncologyComment on above:Iron deficiency anemia, unspecified iron deficiency anemia type (Primary Dx)Start: 06-06-2024 End: 04-99-9705Lopudkbhn Tyron Osborn RNHematology/OncologyComment on above:Patient Question (Oral iron)Start: 06-06-2024 End: 64-70-0360vshlquulnrHylcj [employer] Work Phone: Hematology/OncologyComment on above:Iron deficiency anemia, unspecified iron deficiency anemia type (Primary Dx)Start: 05-30-2024 End: 51-93-2750qdivqjvpznDlqay [employer] Work Phone: Hematology/OncologyComment on above:Iron deficiency anemia, unspecified iron deficiency anemia type (Primary Dx)Start: 05-26-2024 End: 36-92-7039Izaiwl WorkLori King LSWHematology/OncologyStart: 05-22-2024 End: 35-73-1785gahtryuugrWbrby Niurka Evelyn Work Phone: Hematology/OncologyComment on above:Iron deficiency anemia, unspecified iron deficiency anemia type (Primary Dx)Start: 05-16-2024 End: 57-65-0446Fzxqryecr encounterSilvestre Aguiar RNHematology/OncologyComment on above:AppointmentStart: 05-15-2024 End: 55-85-6263Zyqkec outpatient visit 25 minutesMinhermila Patel PA-C Work Phone: Hematology/OncologyComment on above:Iron deficiency anemia, unspecified iron deficiency anemia type (Primary Dx)Start: 05-15-2024 End: 61-72-9384oubudjfnxvMGRMTE GERARD FURLONGFacility:[facility] Start: 04-25-2024 End: 87-66-6543IsosdmRahwuw G Furlong DO Work Phone: [facility] - Family MedicineStart: 04-08-2024 End: 73-92-4272OvtaloYlie Cooper [facility] SERVICESProMedica [facility] Internal Medicine - Family MedicineStart: 04-01-2024 End: 49-86-9850Lwjrslbsd encounterSilvestre Aguiar RNHematology/OncologyComment on above:ResultsStart: 03-31-2024 End: 68-04-4567Yksmih outpatient visit 15 minutesMinhermila Patel PA-C Work Phone: Hematology/OncologyComment on above:Iron deficiency anemia, unspecified iron deficiency anemia type (Primary Dx)Start: 03-31-2024 End: 39-74-4443kjkfweuprdZEEJZDAngeline RUTHERFORDNGcility:[facility] Start: 03-19-2024 End: 43-95-8857Grctaptjf encounterSuzie Patel PA-C Work Phone: Hematology/OncologyComment on above:Lab OrdersStart: 01-28-2024 End: 71-47-9195Cotadq OnlyPedro Rodriguez DO Work Phone: [facility] Internal Medicine - Family MedicineComment on above:Iron deficiency anemia due to dietary causes (Primary Dx)Start: 01-27-2024 End: 39-32-1991HztywoDkyblw G Furlong DO Work Phone: [facility] Internal Medicine - [facility] MedicineStart: 01-17-2024 End: 65-94-9855kdmrjcsttfZTITMA G FURAultman Alliance Community Hospital HospitalStart: 01-17-2024 End: 59-84-4935Tfhkmn outpatient visit 15 minutesPedro Rodriguez DO Work Phone: [facility] Internal Medicine - Family MedicineComment on above:Iron deficiency anemia secondary to inadequate dietary iron intake (Primary Dx); Obesity (BMI 30-39.9); Allergic contact dermatitis due to plants, except foodStart: 01-17-2024 End: 67-15-7799xidzjkjcfzLEEECBGothenburg Memorial Hospital Ambulatory PPGStart: 01-16-2024 End: 22-84-2123brizjwmllhBnfwswpuiCleveland Clinic [facility] Work Phone: Start: 01-16-2024 End: 87-69-4066Bfzkqxd encounter [facility] [place] Work Phone: Start: 12-11-2023 End: 66-78-3977Izemtrk encounter Georgia Rodriguez DO Work Phone: [facility] Internal Medicine - Family MedicineComment on above:Medicare annual wellness visit, subsequent (Primary Dx); Screening for depressionStart: 11-26-2023 End: 74-45-8849bphroprjreHzhnbl G Furlong DO Work Phone: [facility] Internal Medicine - Family MedicineComment on above:Osteopenia, unspecified location (Primary Dx); Asymptomatic postmenopausal stateStart: 10-10-2023 End: 30-89-7272qijtdczbwfIIVBEXWoman's Hospital of [facility] HospitalStart: 10-10-2023 End: 46-20-7952Tpacot outpatient visit 25 minutesPedro Rodriguez DO Work Phone: [facility] Internal Medicine - Family MedicineComment on above:Mixed hyperlipidemia (Primary Dx); Iron deficiency anemia secondary to inadequate dietary iron intake; Impaired fasting glucose; Pedal edema; Chronic diastolic heart failure ([facility])Start: 34-47-7466OvsmivRkqe Verona Auguste OPERATIONS WELDER-WAREHOUSE SUPERVISOR 3RD SHIFT Work Phone: [facility] Internal Medicine - Family MedicineStart: 68-15-8632Ctqzbt Donavan Peguero PT Work Phone: [facility] CI PTStart: 33-45-1233Ccngnn Donavan Peguero PT Work Phone: [facility] CI PTStart: 07-06-2023 End: 56-97-9428tegiobctpyJgnlig J Evans PT Work Phone: noMS CI PTComment on above:Unilateral primary osteoarthritis, right knee (Primary Dx); Status post right knee replacementStart: 07-04-2023 End: 78-65-1278Weacsb outpatient visit 25 minutesJrNoemi Krishna Venegas Crispinjohn DO Work Phone: noms FB ORTHOPAEDICSComment on above:Acute pain of right knee (Primary Dx); History of total knee replacement, rightStart: 00-23-8797MmwlyyKiaevh Gullett CMAProMedica Physicians Internal Medicine - Family MedicineStart: 06-19-2023 End: 75-06-0163Ycbcba outpatient visit 25 minutesJanelle Verona Auguste OPERATIONS WELDER-WAREHOUSE SUPERVISOR 3RD SHIFT Work Phone: [facility] Internal Medicine - Family MedicineComment on above: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[facility]) (Primary Dx); Fatigue, unspecified type; Articulation disorder; Poor concentrationStart: 77-10-5038TcnwenDohqek G Furlong DO Work Phone: [facility] Internal Medicine - Family MedicineStart: 83-43-9268Wqbkmv outpatient visit 15 minutesTaryn Olivarez [facility] ClydeStart: 04-25-2023 End: 38-75-9488gviebhzsqbNM-C Taryn Dobson Work Phone: [facility] Work Phone: Start: 04-25-2023 End: 09-16-3916Mqfqnhnd ReferredNP-C Taryn Dobson Work Phone: [facility] Main [place] Work Phone: Start: 10-11-2022 End: 54-55-9875jvdmzscyigNQ AUGUSTIN VITALFacility:Q3Podoa: 47-27-9236Elrsjzsha encounterJealysa Enamorado RNHematology/OncologyComment on above:OrdersStart: 10-04-2022 End: 46-56-4313mvbiakmtcdUejvhz Dymond Other Duarte Kanari Other Start: 59-98-8869Chjxup outpatient visit 25 minutes Taryn DobsonFPG Urgent Care ClydeStart: 08-31-2022 End: 43-40-4564uifkdqhoxxKaybs R Murphy MD Work Phone: Hematology/OncologyComment on above:Iron deficiency anemia, unspecified iron deficiency anemia type (Primary Dx)Start: 08-31-2022 End: 44-33-6524Mixwjhv encounter Melissa Vital MD Work Phone: SANDUSKYStart: 18-22-7876Myzfcymgd encounterSilvana Thompson RNHematology/OncologyComment on above:ResultsStart: 06-22-2022 End: 69-07-0676dofxndwhivIaefg R Murphy MD Work Phone: Hematology/OncologyComment on above:Iron deficiency anemia, unspecified iron deficiency anemia type (Primary Dx)Start: 06-22-2022 End: 16-44-5747Vwtcrcr encounter Melissa Vital MD Work Phone: SANDUSKYStart: 85-00-4173Uuatb abstractingAugustin Vital MD Work Phone: Hematology/OncologyStart: 06-20-2022 End: 32-92-3515oibbqwdyyqHokwy V. West MDFacility:Henry County Hospitaltart: 06-02-2022 End: 69-27-7386jygujxqfazWG PEDRO G FURLONGFacility:R7Zusjz: 06-01-2022 End: 84-17-4267sjhhhyjiraHD MAYANK MICHAELFacility:Q8Xcllo: 05-25-2022 End: 27-22-2631btxepajggsZZ MAYANK Schulzcility:A8Uydyp: 05-19-2022 End: 00-36-8064rwuepsvtihFD MAYANK Schulzcility:A4Saaud: 05-05-2022 End: 85-77-5926czfqixihkbSJ MAYANK Schulzcility:P9Iunmr: 05-01-2022 End: 96-65-0064yklptbujrsGR MAYANK MICHAELFacility:S2Nfxqc: 04-24-2022 End: 48-21-9158udrzipjphdCV MAYANK Schulzcility:Y9Kgadw: 04-17-2022 End: 47-26-5450lyusttxidcUL MAYANK Schulzcility:U4Vixiy: 03-24-2022 End: 94-70-0393aorihcwgjrOM MAYANK Schulzcility:P8Sehwc: 03-21-2022 End: 01-96-3535fnhudnguauTL MAYANK Schulzcility:H8Jmwzk: 03-11-2022 End: 99-15-9141pwucqwkbrtNW PEDRO G FURLONGFacility:U2Dqahn: 03-10-2022 End: 76-40-9861lcqqsxhmidUE PEDRO G FURLONGFacility:R2Ntbby: 03-06-2022 End: 40-38-5889npdtynzvhnEDOJYO RAUCHFacility:Z0Xxbwn: 03-03-2022 End: 50-12-9297qanrnhrgbiMO MAYANK Schulzcility:N2Hxlyc: 02-27-2022 End: 61-12-7050skddvwmndzGE MAYANK MICHAELFacility:E6Rinex: 01-06-2022 End: 52-38-1759wtgzsuzozyYT MAYANK V WESTFacility:M3Ayskc: 12-27-2021 End: 68-70-8703sdtxbothpdZG MAYANK V WESTFacility:U0Vbifp: 11-25-2021 End: 70-89-7528xmllpumikjLZKYGT RAUCHFacility:H1 Procedures DateProcedureProcedure DetailPerforming ClinicianStart: 31-89-8568Bivccnjvzs examination knee 1/ viewsJrNoemi Venegas Stepanic DO Work Phone: Start: 59-55-5968Iuypk depression screening assessment Pedro Furlong DO Work Phone: Start: 17-95-1462Xftrm depression screening assessment Pedro Furlong DO Work Phone: Start: 10-84-9549RBHMKEGGTRX SKIN LESIONNatalie Victoriano Serna OPERATIONS WELDER-LADIES' HAT TRIMMER Work Phone: Start: 48-50-6329RzewjmhybwhTeex Cooper CMAStart: 00-45-2772Uphiz depression screening assessmentDennis Furlong DO Work Phone: Start: 58-19-1530Nkzkc depression screening assessment Pedro Furlong DO Work Phone: Start: 18-91-0703Rqdhm depression screening assessment Pedro Furlong DO Work Phone: Start: 38-18-8328Afezv 1996 panel - Serum or Plasma Suzie Patel PA-C Work Phone: Start: 89-50-7719Qdfwr depression screening assessment Janelle Auguste OPERATIONS WELDER-WAREHOUSE SUPERVISOR 3RD SHIFT Work Phone: Start: 83-01-2006Bgqwblzefvyf/tazobactamPamela Olya Other Start: 02-15-0822Jktjg depression screening assessment Pedro Furlong DO Work Phone: Start: 08-00-7880AlguiysvrsyGaxsro Furlong DO Work Phone: Start: 36-20-3350IdxzwckwpmeKokydn Furlong DO Work Phone: Start: 99-95-9314NvlcjhaqamnRdfkwg Evans PT Work Phone: Start: 33-50-1275TlvxfcokvocGlujde Evans PT Work Phone: Plan of Treatment DateCare ActivityDetailAuthorStart: 69-57-5378Yytnsnnxp for malignant neoplasm of colonColonoscopyProCleveland Clinic Children's Hospital for Rehabilitationtart: 28-93-9206LPT Vaccine (1 - 1- dose 75+ series)RSV Vaccine (1 - 1-dose 75+ series)[facility] Campustart: 96-73-3280Nfezu panelLipid ScreeningTrinity Health System East Campustart: 71-78-4834Xhxnrzqf ScreeningDiabetes ScreeningTrinity Health System East Campustart: 65-19-8962Ummqpmyn Screening Diabetes ScreeningTrinity Health System East Campustart: 65-28-3259Dklkxxvw ScreeningDiabetes ScreeningTrinity Health System East Campustart: 27-55-1650Iwjnxuqy ScreeningDiabetes Screening [facility] Campustart: 12-15-2025 End: 77-19-1552Kczvzvd encounter /14/2026 3:00 PM EDT Office Visit [facility] [address] [place] [address] [phone] Physicians Internal Medicine - Family MedicineStart: 06-31-8202Skxsd BMI ScreeningAdult BMI ScreeningProCleveland Clinic Children's Hospital for Rehabilitationtart: 01-00-4380Abnvxybjco ScreeningDepression ScreeningWVUMedicine Harrison Community Hospital SystemStart: 72-09-5094Fhxm Risk ScreeningFall Risk ScreeningDorothea Dix Hospitaltart: 07-10-2026Medicare Annual Wellness VisitMedicare Annual Wellness VisitProCleveland Clinic Children's Hospital for Rehabilitationtart: 37-04-0663Vsqbe BMI Follow Up PlanAdult BMI Follow Up PlanDorothea Dix Hospitaltart: 17-57-5261Lirsh BMI ScreeningAdult BMI ScreeningProCleveland Clinic Children's Hospital for Rehabilitationtart: 89-69-7112Kqcaadnftq Screening Depression ScreeningProCleveland Clinic Children's Hospital for Rehabilitationtart: 02-61-4140Ezbc Risk Screening Fall Risk ScreeningProCleveland Clinic Children's Hospital for Rehabilitationtart: 46-24-1396Fpnclqf Screening Tobacco ScreeningDorothea Dix Hospitaltart: 46-08-2103JIYVVUUP SCREENDIABETES SCREENCanby ClinicStart: 07-13-2025 End: 01-84-9242Rlcwqnx encounter nzxjrtude82/09/2026 10:05 AM EST Office Visit [facility] [address] [place] [address] Silvestre Serna APRN-LADIES' HAT TRIMMER [address] [place] [address] [facility] SWS DERMStart: 05-26-2025 End: 28-29-4064Cajzrdl encounter klptaeqgh58/23/2025 8:30 AM EST Office Visit [facility] [address] [place] [phone] Jr. Krishna Trujillo, [address] [facility] [address] [place] [address] [facility] OrthopaedicsStart: 04-20-2025 End: 42-63-3922Wghlit-up encounterHematology/OncologyComment on above:3 month follow up after labStart: 04-10-2025 End: 45-25-1447Svvetif encounter soazucxuj20/07/2025 10:30 AM EST Office Visit [facility] [address] [place] [address] Pedro Rodriguez DO [address], [facility] [place] [address] [facility] - Family MedicineStart: 51-26-8254Koltqpzfr for malignant neoplasm of breastMammogramProCleveland Clinic Marymount Hospital SystemStart: 03-24-2025 End: 58-97-9256THT W Auto Differential panel - BloodCOMPLETE BLOOD COUNT AND DIFFERENTIAL Lab Routine Iron deficiency anemia, unspecified iron deficiency anemia type Expected: 03/24/2025 (Approximate), Expires: 06/23/2025leveland ClinicComment on above:Expected: 03/24/2025 (Approximate), Expires: 06/23/2025 Start: 03-24-2025 End: 24-80-1569Bpsownrucerub metabolic 2000 panel - Serum or PlasmaCOMPREHENSIVE METABOLIC PANEL Lab Routine Iron deficiency anemia, unspecified iron deficiency anemia type Expected: 03/24/2025 (Approximate), Expires: 06/23/2025leveland ClinicComment on above:Expected: 03/24/2025 (Approximate), Expires: 06/23/2025 Start: 03-24-2025 End: 12-15-6794Pwcootou [Mass/volume] in Serum or PlasmaFERRITIN Lab Routine Iron deficiency anemia, unspecified iron deficiency anemia type Expected: 03/24 (Approximate), Expires: 06/23/2025leveland ClinicComment on above: Expected: 03/24/2025 (Approximate), Expires: 06/23/2025Start: 03-24-2025 End: 01-47-3836Dsrk and Iron binding capacity panel - Serum or PlasmaIRON AND TIBC Lab Routine Iron deficiency anemia, unspecified iron deficiency anemia type Expected:03/24/2025 (Approximate), Expires: 06/23/2025[facility] Work Phone: Comment on above:Expected: 03/24/2025 (Approximate), Expires: 06/23/2025Start: 58-28-3941DexwmbvdoMarietta Memorial Hospitaltart: 03-17-2025 End: 50-61-9813Qygggct encounter orsdxlwcb21/14/2025 8:30 AM EDT Office Visit [facility] [address] [place] [phone] Jr. Krishna Trujillo C, DO [address] [facility] [address] [place] [address] Acute pain of right kneeNOMS Indianapolis OrthopaedicsComment on above:Acute pain of right kneeStart: 57-66-5697UPMQV-19 Vaccine ( season)COVID-19 Vaccine ( season)[facility] SystemStart: 55-54-4164Ccjwexdpw vaccinationProMarymount Hospitalca Health SystemStart: 31-12-7739Gxldw BMI ScreeningAdult BMI ScreeningProMarymount Hospitalca Health SystemStart: 89-99-5622Kmvjpujdiw ScreeningDepression ScreeningProChildren'S [facility] Health SystemStart: 09-18-5901Untxysn ScreeningTobacco ScreeningProMarymount Hospitalca Health SystemStart: 01-12-2025 End: 82-68-3057Oisijvx encounter daottdgub93/11/2025 1:00 PM EDT Office Visit [facility] [address] [place] [address] Jr. Krishna Trujillo C, DO [address] [place] [address] [facility]ICSStart: 01-12-2025 End: 08-99-0104ffgisogzukGuqdazpall/OncologyComment on above:IV iron / pt leaving for vacation after this apptIV iron / pt leaving for vacation after this appt / If we start early can we keep her in mind.Start: 01-05-2025 End: 34-62-5110bqosutgllf36/04/2025 9:40 AM EDT [facility]fusion [facility] Hematology/Oncology [address] [place] [address] [place] [address] Evelyn, Chair [address] [place] [address] IV iron / pt leaving for vacation after this apptHematology/OncologyComment on above:IV iron / pt leaving for vacation after this apptStart: 12-29-2024 End: 81-02-2101cgnzpiurfk24/28/2025 9:40 AM EDT Infusion Center Hematology/Oncology [address] [address] Evelyn, Chair [address] [address] IV iron / pt leaving for vacation after this apptHematology/OncologyComment on above:IV iron / pt leaving for vacation after this apptStart: 12-22-2024 End: 26-13-5573Tyybrg-up hrjpbkduk64/21/2025 8:30 AM EDT Visit (SP) Office Hematology/Oncology [address] [place], [place] [phone] Suzie Patel, PAFrankC [address] [place] [address] 3 [facility]at[facility]/OncologyComment on above:3 month [facility]: 12-17-2024 End: 69-89-0046UNK W Auto Differential panel - BloodCOMPLETE BLOOD COUNT AND DIFFERENTIAL Lab Routine Iron deficiency anemia, unspecified iron deficiency anemia type Expected: 12/17/2024 (Approximate), Expires: 03/18/2025leveland ClinicComment on above:Expected: 12/17/2024 (Approximate), Expires: 03/18/2025 Start: 12-17-2024 End: 23-83-2967Hwrflrdlyjfwq metabolic 2000 panel - Serum or PlasmaCOMPREHENSIVE METABOLIC PANEL Lab Routine Iron deficiency anemia, unspecified iron deficiency anemia type Expected: 12/17/2024 (Approximate), Expires: 03/18/2025leveland ClinicComment on above:Expected: 12/17/2024 (Approximate), Expires: 03/18/2025 Start: 12-17-2024 End: 29-26-0067Wzqgeppg [Mass/volume] in Serum or PlasmaFERRITIN Lab Routine Iron deficiency anemia, unspecified iron deficiency anemia type Expected: 12/17 (Approximate), Expires: 03/18/2025leveland ClinicComment on above: Expected: 12/17/2024 (Approximate), Expires: 03/18/2025Start: 12-17-2024 End: 95-02-8072Wzlu and Iron binding capacity panel - Serum or PlasmaIRON AND TIBC Lab Routine Iron deficiency anemia, unspecified iron deficiency anemia type Expected:12/17/2024 (Approximate), Expires: 03/18/2025[facility] Work Phone: Comment on above:Expected: 12/17/2024 (Approximate), Expires: 03/18/2025Start: 12-17-2024 End: 70-61-9951Wylvec-up iztbelvwz33/16/2025 11:00 AM EDT Visit (SP) Office Hematology/Oncology [address] [place] [address] Suzie Patel, PA-C [address] [place] [address] 3 [facility]atology/OncologyComment on above:3 month [facility]: 12-11-2024 End: 56-47-1916Cybdamw encounter lvxmvblul81/10/2025 1:40 PM EDT Office Visit [facility] [address] [place] [address] IcyTqyuuf [facility] Internal Medicine - Family MedicineStart: 79-94-9456Levdl BMI ScreeningAdult BMI ScreeningProCleveland Clinic Marymount Hospital SystemStart: 35-57-8160Rwtdlkgcbu ScreeningDepression ScreeningProCleveland Clinic [facility] SystemStart: 15-26-6890Rlwb Risk ScreeningFall Risk ScreeningWVUMedicine Harrison Community Hospital SystemStart: 07-09-2025Medicare Annual Wellness VisitMedicare Annual Wellness VisitWVUMedicine Harrison Community Hospital SystemStart: 40-84-9213Skzmm BMI ScreeningAdult BMI ScreeningProCleveland Clinic [facility] Hospital SystemStart: 99-10-5090Kfcmlctkry ScreeningDepression ScreeningProCleveland Clinic [facility] SystemStart: 85-76-0330Yxvx Risk ScreeningFall Risk ScreeningProCleveland Clinic [facility] Hospital SystemStart: 61-79-8203Zafpibz ScreeningTobacco ScreeningProCleveland Clinic [facility] Hospital SystemStart: 10-03-2024 End: 61-67-5911Sufgifh encounter hsbosoqks76/02/2025 10:30 AM EDT Office [facility] [address] [place] [address] Pedro Rodriguez, [address], [facility] [place] [address] [facility] Physicians Internal Medicine - [facility] MedicineStart: 09-12-2024 End: 97-01-9145Vlyclf-up /11/2025 11:00 AM EDT Visit (SP) Office Hematology/Oncology [address] [place] [address] Suzie Patel PA-C [address] [address] 3 month follow up labHematology/OncologyComment on above:3 month follow up labStart: 09-12-2024 End: 41-61-9898Mbmsfhu encounter oumcyomvb89/11/2025 10:45 AM EDT Office Visit [facility] [address] [place] [address] 3 month follow up [facility] LaboratoryComment on above:3 month follow up labStart: 09-11-2024 End: 70-30-6743Eufjqx-up hdfulzjhh82/10/2025 11:00 AM EDT Visit (SP) Office Hematology/Oncology [address] [place] [address] Suzie Patel PA-C [address] [address] 3 month follow up with labsHematology/OncologyComment on above:3 month follow up with labsStart: 09-11-2024 End: 86-62-1600Nibvvdy encounter kpcotskxl80/10/2025 10:45 AM EDT Office Visit [facility] Laboratory [address] [place] [address] 3 month follow up [facility] LaboratoryComment on above:3 month follow up labStart: 08-18-2024 End: 64-14-9682EQD W Auto Differential panel - BloodCOMPLETE BLOOD COUNT AND DIFFERENTIAL Lab Routine Iron deficiency anemia, unspecified iron deficiency anemia type Expected: 08/18/2024 (Approximate), Expires: 11/17/2024leveland ClinicComment on above:Expected: 08/18/2024 (Approximate), Expires: 11/17/2024 Start: 08-18-2024 End: 52-97-9103Qyjzkwdxleaqi metabolic 2000 panel - Serum or PlasmaCOMPREHENSIVE METABOLIC PANEL Lab Routine Iron deficiency anemia, unspecified iron deficiency anemia type Expected: 08/18/2024 (Approximate), Expires: 11/17/2024[place] ClinicComment on above:Expected: 08/18/2024 (Approximate), Expires: 11/17/2024 Start: 08-18-2024 End: 15-08-6413Vnqlrxgh [Mass/volume] in Serum or PlasmaFERRITIN Lab Routine Iron deficiency anemia, unspecified iron deficiency anemia type Expected: 08/18 (Approximate), Expires: 11/17/2024[place] ClinicComment on above: Expected: 08/18/2024 (Approximate), Expires: 11/17/2024Start: 08-18-2024 End: 52-25-1182Hrrq and Iron binding capacity panel - Serum or PlasmaIRON AND TIBC Lab Routine Iron deficiency anemia, unspecified iron deficiency anemia type Expected:08/18/2024 (Approximate), Expires: 11/17/2024[facility] Work Phone: Comment on above:Expected: 08/18/2024 (Approximate), Expires: 11/17/2024Start: 07-08-2024 End: 35-11-7718Fcddxfe encounter laxyxdiea63/04/2025 10:05 AM EST Office Visit [facility] [address] [place] [address] Silvestre Serna APRN-[employer]AD[employer] TRIMMER [address] [place] [address] ArrivedNOMS SWS DERMComment on above: ArrivedStart: 06-20-2024 End: 30-01-0132pegxfcrbsk49/17/2025 1:00 PM EST Infusion Center Hematology/Oncology [address] [place] [address] [place] [address] VENOFER 200 MG IV PUSHHematology/OncologyComment on above:VENOFER 200 MG IV PUSHStart: 71-50-3441Dplbd BMI ScreeningAdult BMI ScreeningWVUMedicine Harrison Community Hospital SystemStart: 40-74-9736Jicscpbztg ScreeningDepression ScreeningProCleveland Clinic [facility] SystemStart: 67-22-9283Ionc Risk ScreeningFall Risk ScreeningProCleveland Clinic [facility] SystemStart: 85-45-8539Zceetqp ScreeningTobacco ScreeningProCleveland Clinic [facility] SystemStart: 06-19-2024 End: 38-87-5851fiyxbefegg93/16/2025 1:00 PM EST Infusion Center Hematology/Oncology [address] [place] [address] VENOFER 200 MG IV PUSHHematology/OncologyComment on above:VENOFER 200 MG IV PUSHStart: 06-13-2024 End: 55-29-4868ermtfigeuo20/10/2025 1:00 PM EST Infusion Center Hematology/Oncology [address] [place] [address] VENOFER 200 MG IV PUSHHematology/OncologyComment on above:VENOFER 200 MG IV PUSHStart: 06-06-2024 End: 54-87-2755grroxxvyyeTupeilalyb/OncologyComment on above:VENOFER 200 MG IV PUSHIAUStart: 08-79-7345Vxebwpr Directive DiscussionAdvance Directive Discussion [facility]: 01-01-2025Medicare Advantage Annual Wellness Visit Medicare Advantage Annual Wellness VisitTrinity Health System East Campustart: 05-30-2024 End: 57-88-1112bvnxoxsyqw96/27/2024 10:00 AM EST Infusion Center Hematology/Oncology [address] [place] [address] VENOFER 200 MG IV PUSHHematology/OncologyComment on above:VENOFER 200 MG IV PUSHStart: 05-22-2024 End: 77-83-7996lrzpgwtrda21/19/2024 1:00 PM EST Infusion Center Hematology/Oncology [address] [place] [address] VENOFER 200 MG IV PUSHHematology/OncologyComment on above:VENOFER 200 MG IV PUSHStart: 05-16-2024 End: 61-88-7399Ovmatl-up cptjgoesn91/13/2024 10:00 AM EST Visit (SP) Office Hematology/Oncology [address] [place] [address] Suzie Patel PA-C [address] [place] [address] follow up with labs per natalieHematology/OncologyComment on above:follow up with labs per natalieStart: 05-16-2024 End: 96-75-2945Sdceqnt encounter tkqsskgid01/13/2024 9:30 AM EST Office Visit [facility] [address] [place] [address] lab per [facility]owell in [facility] LaboratoryComment on above:lab per NPowell in IMStart: 04-17-2024 End: 16-94-3258Svjifgb encounter tselnjnpt71/14/2024 2:15 PM EST Office Visit [facility] [address] [place] [address] Pedro Rodriguez DO [address], [facility] [place] [address] [facility] MedicineStart: 04-14-2024 End: 03-07-3710Mgcnckk encounter agaczmkhe21/11/2024 8:30 AM EST Office Visit [facility] [address] [place] [address] Pedro Rodriguez DO [address] [facility] [place] [address] [facility] MedicineStart: 25-15-6343Khzvv BMI Follow Up PlanAdult BMI Follow Up PlanProCleveland Clinic [facility]mount Hospital SystemStart: 89-79-1273Mxkry BMI ScreeningAdult BMI ScreeningProCleveland Clinic [facility] SystemStart: 13-31-5566Flbiotfbox ScreeningDepression ScreeningProCleveland Clinic [facility] SystemStart: 41-90-5287Mdai Risk ScreeningFall Risk ScreeningWVUMedicine Harrison Community Hospital SystemStart: 32-08-3365Rxbxtiy ScreeningTobacco ScreeningProCleveland Clinic [facility] SystemStart: 22-69-4831Cjeqffdqh for malignant neoplasm of breastMammogramProCleveland Clinic [facility] SystemStart: 03-31-2024 End: 76-48-2430Vqxtna-up lvkiyuqmh70/28/2024 2:30 PM EDT Visit (SP) Office Hematology/Oncology [address] [place], [place] [phone] Suzie Patel, PAFrankC [address] [place] [address] est patient follow upHematology/OncologyComment on above:est patient follow upStart: 03-19-2024 End: 00-55-3963PUS W Auto Differential panel - BloodCOMPLETE BLOOD COUNT AND DIFFERENTIAL Lab Routine Iron deficiency anemia, unspecified iron deficiency anemia type Expected: 03/19/2024, Expires: 06/18/2024leveland ClinicComment on above:Expected: 03/19/2024, Expires: 06/18/2024Start: 03-19-2024 End: 23-04-0153Tvicktqrjqlso metabolic 2000 panel - Serum or PlasmaCOMPREHENSIVE METABOLIC PANEL Lab Routine Iron deficiency anemia, unspecified iron deficiency anemia type Expected: 03/19/2024, Expires: 06/18/2024leveland ClinicComment on above:Expected: 03/19/2024, Expires: 06/18/2024Start: 03-19-2024 End: 67-02-3823Zfdtbamw [Mass/volume] in Serum or PlasmaFERRITIN Lab Routine Iron deficiency anemia, unspecified iron deficiency anemia type Expected: 03/19, Expires: 06/18/2024leveland ClinicComment on above:Expected: 03/19/2024, Expires: 06/18/2024Start: 03-19-2024 End: 58-75-5112Fkdd and Iron binding capacity panel - Serum or PlasmaIRON AND TIBC Lab Routine Iron deficiency anemia, unspecified iron deficiency anemia type Expected:03/19/2024, Expires: 06/18/2024[facility] Work Phone: Comment on above:Expected: 03/19/2024, Expires: 06/18/2024Start: 97-13-7794Wzgyk-19 Vaccine ()Covid-19 Vaccine ()[facility]: 40-29-6593HIBNC-19 Vaccine ()COVID-19 Vaccine ()[facility] Start: 02-56-3602Emqzepgva vaccinationTrinity Health System East Campustart: 01-17-2024 End: 35-94-3590Tlguikd encounter ggixumage57/15/2024 1:30 PM EDT Office Visit [facility] [address] [place] [address] Pedro Rodriguez DO [address], [facility] [place] [address] [facility] MedicineStart: 01-02-2024 End: 20-74-4673Oyvciov encounter poxbvqotv45/31/2024 8:00 AM EDT Office Visit [facility] [address] [place] [phone] Jr. Krishna Trujillo, [address] [address] [facility] ORTHOPAEDICSStart: 12-11-2023 End: 08-75-4760Mysjbui encounter /09/2024 4:00 PM EDT Office Visit [facility] [address] [place] [address] [facility] - [facility] MedicineStart: 11-26-2023 End: 25-25-4571HVK Skeletal system Views for bone densityDexa scan central skeletal Imaging Routine Osteopenia, unspecified location Asymptomatic postmenopausal state Expected: 11/26/2023, Expires: 11/25/2024[facility] Work Phone: Comment on above:Expected: 11/26/2023, Expires: 11/25/2024Start: 11-26-2023 End: 05-27-8538Qtxvkbl encounter scgwdvagm79/24/2024 11:00 AM EDT [facility] [address] [address] [facility] [address] [facility] [address] Pedro Rodriguez, DO [address], [facility] [place], [place] [address] [facility]: 51-12-3753Cvhvmuxhp for malignant neoplasm of colonNOMS HealthcareStart: 04-27-2024Medicare Annual Wellness VisitMedicare Annual Wellness VisitDorothea Dix Hospitaltart: 92-95-0563JWeQ,Tdap and Td Vaccines (2 - Td or Tdap)DTaP,Tdap and Td Vaccines (2 - Td or Tdap)[facility] Hospitaltart: 03-47-8202DZKHTGTVVP CANCER SCREENINGCOLORECTAL CANCER SCREENINGTrinity Health System East Campustart: 31-82-6440FGBGN OCCULT BLOODFECAL OCCULT BLOODTrinity Health System East Campustart: 60-86-3518Uisjhozzy for malignant neoplasm of colonNOMS HealthcareStart: 07-13-2023 End: 85-18-3914jsgaqnjoeh25/09/2024 9:00 AM EST Treatment [facility] [address] [facility] [address] [place] [phone] Taryn Peguero, PT [address] [place] [address] [facility] Start: 07-06-2023 End: 60-18-0276jzgtochiux59/02/2024 9:00 AM EST Treatment [facility] [address] [facility] [address] [place] [address] Taryn Peguero, PT [address] [place] [address] Arrived [facility] PTComment on above:ArrivedStart: 06-19-2023 End: 77-11-0970Tddfjas encounter zanuhqbgu92/16/2024 9:00 AM EST Office Visit [facility] [address] [place] [address] Janelle Auguste, 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 WELDER-WAREHOUSE SUPERVISOR [employer]RD [employer]IFT [address] [place] [address] [facility] - Family MedicineStart: 00-16-5795Sufldmg Directive DiscussionAdvance Directive DiscussionTrinity Health System East Campustart: 03-43-6696Dputfrvt identified in Urine by CultureMarietta Memorial Hospitaltart: 74-80-8859QDUMG-19 Vaccine ( season)COVID-19 Vaccine ( season)[facility] [employer] [facility] SystemStart: 10-09-2022 End: 80-33-0623AWT W Auto Differential panel - BloodCBC + DIFF Lab Routine Iron deficiency anemia, unspecified iron deficiency anemia type Expected: 10/09/2022, Expires: 12/09/2022[facility] Work Phone: Comment on above:Expected: 10/09/2022, Expires: 12/09/2022Start: 10-09-2022 End: 96-92-1989Arpbeewj [Mass/volume] in Serum or PlasmaFERRITIN BLD Lab Routine Iron deficiency anemia, unspecified iron deficiency anemia type Expected: 0 10/09/2022, Expires: 12/09/2022[facility] Work Phone: Comment on above:Expected: 10/09/2022, Expires: 12/09/2022Start: 10-09-2022 End: 22-65-9978Ppmc and Iron binding capacity panel - Serum or PlasmaIRON + TIBC Lab Routine Iron deficiency anemia, unspecified iron deficiency anemia type Expected: 10/09/2022, Expires: 12/09/2022[facility] Work Phone: Comment on above:Expected: 10/09/2022, Expires: 12/09/2022Start: 08-31-2022 End: 04-46-7745Wvddyuqh [Mass/volume] in Serum or [facility] Work Phone: Comment on above:Expected: 08/31/2022, Expires: 10/31/2022Start: 08-31-2022 End: 66-35-6420Ozyw and Iron binding capacity panel - Serum or [facility] Work Phone: Comment on above:Expected: 08/31/2022, Expires: 10/31/2022Start: 06-22-2022 End: 87-70-2450Twsgaqgby (Vitamin B12) [Mass/volume] in Serum or [facility] Work Phone: Comment on above:Expected: 06/22/2022, Expires: 08/22/2022Start: 06-22-2022 End: 43-67-6673Khlxllfj [Mass/volume] in Serum or [facility] Work Phone: Comment on above:Expected: 06/22/2022, Expires: 08/22/2022Start: 06-22-2022 End: 44-96-9898Ykod and Iron binding capacity panel - Serum or [facility] Work Phone: Comment on above:Expected: 06/22/2022, Expires: 08/22/2022Start: 59-85-9679BCUIPTF DIRECTIVE DISCUSSIONADVANCE DIRECTIVE DISCUSSIONTrinity Health System East Campustart: 59-22-8171SEZNUBSHTW ASSESSMENTDEPRESSION ASSESSMENTTrinity Health System East Campustart: 64-52-9941JPBOM-19 VACCINE (5 - Booster for Moderna series)COVID-19 VACCINE (5 - Booster for Moderna series)[facility] Start: 88-89-8283Mgmbmxbfv for malignant neoplasm of breastNOMS HealthcareStart: 81-54-9213DPMPK-19 VACCINE (2 - Moderna series)COVID-19 VACCINE (2 - Moderna series)[facility]: 16-28-5954FTIJ DENSITYBONE DENSITYCorey Hospital Start: 81-76-2065VKOWSAFNCJWH: 65+ (1 - PCV)PNEUMOCOCCAL: 65+ (1 - PCV)[facility]art: 86-34-6123Znzromcdx for malignant neoplasm of colonColonoscopy [facility]ustart: 14-57-1428Hkvxy microalbumin profileDTaP,Tdap,Td Vaccine (1 - Tdap)[facility]: 31-94-4022JCYTWUIS VACCINE (1 of 2)SHINGRIX VACCINE (1 of 2)[facility]: 42-44-0739NRBRXCTIK (FIT-DNA)COLOGUARD (FIT-DNA)[facility]: 04-88-1818RsdsyanqpcwOGRYQYAUERTMhigunccm Clinic Start: 13-39-6026LOKIXWIPPZ CANCER SCREENINGCOLORECTAL CANCER SCREENINGTrinity Health System East Campustart: 53-14-6774OZ COLONOGRAPHYCT COLONOGRAPHYTrinity Health System East Campustart: 39-74-1505TZRHPEYY SCREENDIABETES SCREENTrinity Health System East Campustart: 93-10-4160WHKYI OCCULT BLOODFECAL OCCULT BLOODTrinity Health System East Campustart: 80-13-7722NRPUP SCREENLIPID SCREENTrinity Health System East Campustart: 22-11-7387Dbqqqpmoe for malignant neoplasm of colonTrinity Health System East Campustart: 94-58-4567JAOWZZOXLQWCKFPPTVOSGGHKEESdmxucvpe Clinic Start: 18-90-1502WuchgphjozvGAEKUVUMPEbiiamfvm ClinicStart: 58-65-0869Ybkbh microalbumin profileDTAP,TDAP,TD (1 - Tdap)[facility]: 02-03-1973 Anxiety ScreeningAnxiety ScreeningTrinity Health System East Campustart: 34-65-6911Qutgvfyshf ScreeningDepression ScreeningTrinity Health System East Campustart: 90-22-7842TQLQSITLD C SCREENINGHEPATITIS C SCREENINGTrinity Health System East Campustart: 60-49-5329Tfhxfumsm C screeningHepatitis C ScreeningTrinity Health System East Campustart: 19-90-8988Djgswchqd for malignant neoplasm of colonNOMN Healthcare End: 82-59-5520Vofgh metabolic 2000 panel - Serum or PlasmaBasic Metabolic Panel Lab Routine 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 Occurrences starting 06/19/2023 unt il 06/19/2024ProChildren[facility] Health SystemComment on above:1 Occurrences starting 06/19/2023 until 06/19/2024 End: 84-85-4279GOL panel - Blood by Automated countCBC Lab Routine Iron deficiency anemia secondary to inadequate dietary iron intake 1 Occurrences sta rting 01/17/2024 until 01/16/2025ProChildren'[facility] Health SystemComment on above:1 Occurrences starting 01/17/2024 until 01/16/2025 Hemoglobin.gastrointestinal.lower [Presence] in Stool by ImmunoassayFECAL OCCULT BLOOD TEST Lab Routine Iron deficiency anemia, unspecified iron deficiency anemia typeOrdered: 06/22/2022[facility] Work Phone: Comment on above:Ordered: 06/22/2022 End: 65-75-2989Zpwg and TIBCIron and TIBC Lab Routine Iron deficiency anemia secondary to inadequate dietary iron intake 1 Occurrences starting 01/17/2024 until 01/16/2025Pro[facility] Work Phone: Comment on above:1 Occurrences starting 01/17/2024 until 01/16/2025 End: 21-60-1796Kiwvscpwal of Serum or PlasmaOsmolality Lab Routine 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 Occurrences starting 06/19/2023 until 06/19/2024ProCleveland Clinic [facility] Hospital SystemComment on above:1 Occurrences starting 06/19/2023 until 06/19/2024 End: 00-17-6060Imfiagchqu, urineOsmolality, urine Lab Routine 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 Occurrences starting 06/19/2023 until 06/19/2024[facility] Work Phone: Comment on above:1 Occurrences starting 06/19/2023 until 06/19/2024Patient EducationGastritis Pantoprazole [place] Esophagitis Discharge Instructions Know your [facility] Work Phone: End: 05-40-5639Sjwujk, urine, 24 hourSodium, urine, 24 hour Lab Routine 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[facility]) 1 Occurrences starting 06/19/2023 until 06/19/2024ProCleveland Clinic Marymount Hospital SystemComment on above:1 Occurrences starting 06/19/2023 until 06/19/2024 End: 43-63-5252CrketvwwhoElfhddmpas (clean catch) Lab Routine 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[facility]) 1 Occurrences starting 06/19/2023until 06/19/2024ProC[facility] Clinic [facility] Hospital SystemComment on above:1 Occurrences starting 06/19/2023 until 06/19/2024 [facility] Immunizations Immunization DateImmunizationNotesCare DsparmwcVdhbfgyn84-59-4370hdhmkdvzq, high dose seasonal, preservative-freeSuzie Patel PA-C Work Phone: [facility] HospitalWjneff98-10-9892txvebltyh virus vaccine, unspecified formulationDennis Furlong DO Work Phone: [facility] HospitalRoozis26-72-2157Yhflsgtcf Vaccine, Quadrivalent, AdjuvantedDennis Furlong DO Work Phone: [facility] HospitalLyzxiq47-38-4714xtippzgxi virus vaccine, unspecified formulationDennis Furlong DO Work Phone: [facility] HospitalIubdja99-25-6170Qpspnuzsh Vaccine, Quadrivalent, AdjuvantedDennis Furlong DO Work Phone: [facility] HospitalCuzcsq91-70-5433skeyejmax virus vaccine, unspecified formulationDennis Furlong DO Work Phone: [facility] HospitalRduivg74-57-2855mczsdjobw, injectable, quadrivalent, preservative freeDennis Furlong DO Work Phone: [facility] HospitalPptppy97-97-3557Ewxxlxjno, High-dose, QuadrivalentDennis Furlong DO Work Phone: [facility] HospitalSdmokx91-91-6173HLTKB-13, mRNA, LNP- S, PF, 100mcg/0.5mL DoseDennis Furlong DO Work Phone: [facility] HospitalBocipy51-29-0251UGFFK-71, mRNA, LNP- S, PF, 100mcg/0.5mL DoseDennis Furlong DO Work Phone: [facility] HospitalWztetl87-28-9988zngltylxe, injectable, quadrivalent, preservative freeDennis Furlong DO Work Phone: [facility] HospitalBbwloa83-38-8218fmebuxlilotq conjugate vaccine, 13 valentDennis Furlong DO Work Phone: [facility] HospitalSiwnil72-22-0507gkyhjjzouyzg polysaccharide vaccine, 23 valentDennis Furlong DO Work Phone: [facility] HospitalAmfdcz27-75-7803dwypbdkjquxw polysaccharide vaccine, 23 valentDennis Furlong DO Work Phone: [facility] HospitalXlwrjp92-81-0743Yokusila trivalent influenza vaccine, adjuvanted, preservative freeDennis Furlong DO Work Phone: [facility] HospitalZmimwu81-61-9758Hlvpaygt trivalent influenza vaccine, adjuvanted, preservative freeDennis Furlong DO Work Phone: [facility] HospitalOuwnxc45-64-5412dxoqqfbaa, injectable, quadrivalent, preservative freeDennis Furlong DO Work Phone: [facility] HospitalAzzkvm75-38-9567fmjhmusyw, injectable, quadrivalent, preservative freeDennis Furlong DO Work Phone: [facility]09-30-2018zoster vaccine recombinantDennis Furlong DO Work Phone: [facility]07-20-2018zoster vaccine recombinantDennis Furlong DO Work Phone: [facility] HospitalOecdnz61-39-2719jadeeeqhh, seasonal, injectable, preservative freeDennis Furlong DO Work Phone: [facility]02-21-2016zoster vaccine, live Pedro Sharon DO Work Phone: [facility]04-21-2014tetanus and diphtheria toxoids, adsorbed, preservative free, for adult use (5 Lf of tetanus toxoid and 2 Lf of diphtheria toxoid)Pedro Rodriguez DO Work Phone: [facility] CenterZimpwcedql27-39-6506zacbkuqml, seasonal, injectableDenshahram Rodriguez DO Work Phone: [facility] HospitalOfrsej45-02-9621dxcbkruldcm influenzae type b conjugate and Hepatitis B vaccinePedro Rodriguez DO Work Phone: [facility] HospitalVtuvbh53-11-1152zgsjbmflmkr influenzae type b conjugate and Hepatitis B vaccineDenshahram Rodriguez DO Work Phone: [facility] Payers DatePayer CategoryPayerPolicy [id number]-[id number] [id number] 2023Medicare (Managed Care) [id number] [id number] Health [id number] 2.16.840.1.620285.3.57[id number] 2.16.840.1.798765.3.57[id number] 2.16.840.1.926485.3.57[id number] 2.16.840.1.183456.3.579.2.78261-60-4968Gwzvcps4344928 2.16.840.1.030499.3.57[id number] 2.16.840.1.639575.3.579.2.30771-18-5970Oawemvt4853489 2.16.840.1.966580.3.579.2.12675-33-7160Demqhfa9304704 2.16.840.1.530617.3.579.2.32313-40-7186Zkswmoa8623489 2.16.840.1.302358.3.579.2.65637-78-3588Djmzhxm0022643 2.16.840.1.468395.3.579.2.47301-18-0564Fpsoggy8014707 2.16.840.1.342725.3.57[id number] 2.16.840.1.281247.3.579.2.62953-23-6297Nyhcjyx4329869 2.16.840.1.336908.3.579.[id number] 2.16.840.1.026257.3.579.2.[id number] 2.16.840.1.819756.3.579.2.75346-83-7167Mtnkppu7903539 2.16.840.1.148024.3.579.2.67956-62-4948Xplqvup6334580 2.16.840.1.576307.3.579.2.25707-33-4957Xajldhx1263655 2.16.840.1.313508.3.579.2.13570-23-9489Mzbqbfe4203437 2.840.1.209849.3.579.2.30373-90-5229Xpcdabz5573395 2.840.1.555569.3.579.2.82844-92-3887Revfzyf21151520 2.0.1.536240.3.579.2.[id number] 2.840.1.316213.3.579.2.7[id number] 2.0.1.725072.3.579.2.141892-58-0646Rrtdxcv581835341 2.0.1.016581.3.579.2.009898-93-9210Btpbsya55350273 2..1.975620.3.579.2.003364-30-9065Uzbhnmk953900390 2.0.1.914333.3.579.2.540792-29-3137Qcxvhrn32312118 2.0.1.570404.3.579.2.374100-65-1399Mslclmz60109085 2..1.399799.3.579.2.266145-31-5053Djkxrqs3808817 2..1.585923.3.579.2.1259Private Health [id number] 2..[id number] 0mj45g41-3x37-6843-x6a2-1ur40n2ow847 [id number] 2..1.232979.3.579.2.531 Social History DateTypeDetailFacilityStart: 06-21-2022 End: 78-98-3737Gopgudu smoking status NHISNever smoked tobaccoCleveland Clinic Start: 06-21-2022 End: 40-33-2668Euokvev use and exposureSmokeless tobacco non-userTrinity Health System East Campustart: 06-21-2022 End: 84-53-0661Izuyqbo intakeCurrent drinker of alcohol (finding)[facility] Campustart: 85-44-2036Wwodtla CommentoccasionalClevelformerly [facility] ClinicStart: 63-84-8304Wyd Assigned At BirthNot on fileTrinity Health System East Campustart: 07-04-2023 End: 83-52-8126Ikx Assigned At BirthTrinity Health System East Campustart: 14-88-5963Zoa [facility] Hospitaltart: 07-04-2023 End: [id number] of Social functionTrinity Health System East Campustart: 12-12-2022 [id number] HealthcareStart: 36-48-1622Pgiytrk CommentAlcohol: 1 or 2 drinks on typical day/monthly or less. Caffeine 1 can of sodUnitypoint Health Meriter HospitalStart: 58-20-2207Kndwfc identityIdentifies as female gender (finding)[facility] Start: 04-30-2013 End: 44-31-2659Enrtu Depression Screening Krlppzyoxe5Mzrzoxwxj ClinicHas the [place], gas, oil, or water company threatened to shut off services in your home in past 12MoNoProChildren'S Of Alabama [facility] Campus Health SystemAre you now , , , , never or living with a partner?MarriedProChildren'S Of [facility] Health SystemHow often to you have a drink containing alcohol?2-3 time sa week [facility] SystemHow many standard drinks containing alcohol do you have on a typical day?1 or 2ProMedica Health SystemHow often do you have 6 or more drinks on 1 occasion?NeverProMedica Health SystemDo you feel stress - tense, restless, nervous, or anxious, or unable to sleep at night because yourmind is troubled all the time - these days [OSQ]Not at allProCleveland Clinic Marymount Hospital SystemStart: 82-11-2474Xrccsla CommentOccasionalProCleveland Clinic Marymount Hospital SystemStart: 48-49-2537Ebq Female (finding)ProMlaurel oaks behavioral health center Health SystemNEGATED: Highlighted rowStart: NINF History of tobacco usePassive smokerCorey Hospital Clinical Notes 06-21-2022 to 03-17-2025 Note Date & DehiKxwrVtrzysfo27-44-4922 History of Present illness Narrative* Noemi Trujillo, - 03/17/2025 8:30 AM EDT Images from the original note were not included. HISTORY OF PRESENT ILLNESS: EST PT hSauna Christensen is an 70 y.o. @ female. EST [...] MG tablet 1 tablet, Every morning biotin 96845 MCG tablet 1 capsule, Every 24 hours Calcium Carbonate (CALCIUM 600 PO) Take by mouth. cholecalciferol (VITAMIN D-3) 14,000 Units, Daily ferrous sulfate 325 mg, Daily with breakfast levothyroxine (SYNTHROID, LEVOXYL) 50 mcg, Daily RT metFORMIN (Glucophage) 500 MG tablet qkpjysnlooic-gnms-nkclbxlk-folic acid (Centrum Silver, geriatric,) tablet as directed [...] Tobacco Use: Low Risk (10/03/2024) Received from [employer] Patient History Smoking Tobacco Use: Never Smokeless Tobacco Use: Never Passive Exposure: Not on file Alcohol Use: Not At Risk (09/28/2022) Received from [employer] AUDIT-C Q1: How often do you have [...] Referral Reason: Consult and Treat Referral Location[facility] Requested Specialty: Occupational Medicine Number of Visits [...] for requiring urgent evaluation. documented in this encounterSSM Saint Mary's Health CenterLaaeqzwqna90-06-5688 Evaluation note* Author Keith Plummer [facility] HospitalAuthoredSeptember 2024 1:[id number] female referred to the GI clinic for evaluation of iron deficiency anemia. Patient required iron infusions 3 times over the last few months. - Will arrange for EGD/colonoscopy - Will check CBC iron profile and ferritin [facility] Work Phone: 1(546) 417-842809-11-2025 Telephone encounter Note* Telephone Encounter - Laila Gonsalez - 02/12/2025 9:08 AM EDT R TKA 02/09/23, PAMELA 01/07/24 Dental appt's 02/17/25 & 02/24/[address] [facility] CenterOhxsoheyol74-16-7825 Miscellaneous Notes* Telephone Encounter - Laila Gonsalez - 02/12/2025 9:08 AM EDT R TKA 02/09/23, PAMELA 01/07/24 Dental appt's 02/17/25 & 02/24/[address] [facility] documented in this encounterSSM Saint Mary's Health CenterPruqxnxraw26-89-4033 Telephone encounter Note* Telephone Encounter - Kelly Schwartz - 12/24/2024 2:47 PM EDT Called [facility] spoke with Marce. Patient is scheduled to see Dr Plummer on 02/18 @ 1:45. Kelly Martin [facility]07-23-2025 Miscellaneous Notes* Telephone Encounter - Kelly Schwartz - 12/24/2024 2:47 PM EDT Called [facility] spoke with Marce. Patient is scheduled to see Dr Plummer on 02/18 @ 1:45. Kelly Martin * Telephone Encounter - Tabby Contreras - 12/22/2024 10:25 AM EDT Records faxed to Evelyn Waller. * Telephone Encounter - Kelly Schwartz - 12/22/2024 9:04 AM EDT Regina: Information ready for you. Kelly Martin * Telephone Encounter - Fani Davis - 12/22/2024 8:54 AM EDT Images from the original note were not included. Regina, Please fax records Hawk, Please follow up on this appt. documented in this encounterCorey Hospital07-21-2025 Telephone encounter Note * Telephone Encounter - Tabby Contreras - 12/22/2024 10:25 AM EDT Records faxed to Evelyn Wall[facility]. [facility]07-21-2025 Telephone encounter Note* Telephone Encounter - Kelly Schwartz - 12/22/2024 9:04 AM EDT Regina: Information ready for you. Kelly Martin [facility]07-21-2025 Telephone encounter Note* Telephone Encounter - Fani Davis - 12/22/2024 8:54 AM EDT Images from the original note were not included. Regina, Please fax records Hawk, Please follow up on this appt. [facility]07-21-2025 History of Present illness Narrative* Suzie Patel PA-C - 12/22/2024 8:30 AM EDT PATIENT NAME: Shauna Christensen DATE: 12/22/2024 PRIMARY [...] black tarry stools or bright red blood inher stools. Her last colonoscopy was in October [...] metFORMIN (GLUCOPHAGE) 500 mg tablet MV with Mmy-Kltqddtq-Srstso (CENTRUM SILVER) 0.4 mg-300 mcg- 250 mcg [...] noted and edema to entire right leg--not newper patient LABS: Labs from OSH dated 12/17/2024 [...] 2022 stools for occult blood were negative.She had remained on oral iron daily since [...] which included preparing to see the patient, xuqr-ig-yigk patient care, completing clinical documentation, performing a medically appropriate examination, counseling and educating the patient/family/caregiver, ordering medications, tests, or p rocedures, independently interpreting results (not separately reported), communicating results to the patient/family/caregiver, and care coordination (not separately reported). documented in this encounterCorey Hospital07-21-2025 NoteHNO ID: [id number] Author: SUZIE PATEL PA-C Service: ? Author Type: Physician Santa'S Helper Type: Progress Notes Filed: 12/22/2024 08:48 Note [...] metFORMIN (GLUCOPHAGE) 500 mg tablet MV with Vrt-Nbjfpnrw-Iuqorb (CENTRUM SILVER) 0.4 mg-300 mcg- 250 mcg [...] initial course of o (more content not included)...[facility] 12-15-2024 Telephone encounter Note* Telephone Encounter - Silvestre Aguiar RN - 12/15/2024 2:48 PM EDT Labs faxed to [facility] to complete Sunday/Sunday this week for MM appt 12/22/24. Regina: Please watch for results Silvestre Aguiar RN [facility]07-14-2025 Miscellaneous Notes* Telephone Encounter - Silvestre Aguiar RN - 12/15/2024 2:48 PM EDT Labs faxed to [facility] to complete Sunday/Sunday this week for MM appt 12/22/24. 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 documented in this encounterKettering [facility] Hospital06-17-2025 Evaluation note* Author Keith Plummer [facility] HospitalAuthoredSeptember 2024 1:[id number] female referred to the GI clinic for evaluation of iron deficiency anemia. Patient required iron infusions 3 times over the last few months. - Will arrange for EGD/colonoscopy - Will check CBC iron profile and ferritin [facility] Work Phone: 1(462) 725-109505-02-2025 History of Present illness Narrative* Pedro Rodriguez DO - 10/03/2024 10:30 AM EDT Subjective [...] use a CPAP. Risks of sudden , [place] and stroke discussed. She does not want [...] and prescribed diet education. documented in this encounterKettering [facility] Hospital04-17-2025 Telephone encounter Note* Telephone Encounter - Silvestre Aguiar RN - 09/18/2024 8:41 AM EDT VM left for pt with MM message below. Encouraged to call with any questions, needs or concerns. Follow up appointment date and time provided. Silvestre Aguiar RN [facility]04-17-2025 Miscellaneous Notes* Telephone Encounter - Silvestre Aguiar RN - 09/18/2024 8:41 AM EDT VM left for pt with MM message below. Encouraged to call with any questions, needs or concerns. Follow up appointment date and time provided. Silvestre Aguiar RN documented in this encounterCorey Hospital04-16-2025 Telephone encounter Note * Telephone Encounter - Greer Erazo - 09/17/2024 11:13 AM EDT Patient requested her labs in December be done at [facility] prior to follow up. Gave patient orders today. Greer Erazo [facility]04-16-2025 Miscellaneous Notes* Telephone Encounter - Greer Erazo - 09/17/2024 11:13 AM EDT Patient requested her labs in December be done at [facility] prior to follow up. Gave patient orders today. Greer Erazo documented in this encounterCorey Hospital04-16-2025 History of Present illness Narrative* Suzie [...] metFORMIN (GLUCOPHAGE) 500 mg tablet MV with Txi-Yonwkbhu-Umubsj (CENTRUM SILVER) 0.4 mg-300 mcg- 250 mcg [...] which included preparing to see the patient, dbyz-pw-jguq patient care, completing clinical documentation, performing a medically appropriate examination, counseling and educating the patient/family/caregiver, ordering medications, tests, or p rocedures, independently interpreting results (not separately reported), communicating results to the patient/family/caregiver, and care coordination (not separately reported). documented in this encounterCorey Hospital04-16-2025 NoteHNO ID: [id number] Author: SUZIE PATEL PA-C Service: ? Author Type: Physician Santa'S Helper Type: Progress Notes Filed: 09/17/2024 11:32 Note [...] metFORMIN (GLUCOPHAGE) 500 mg tablet MV with Gug-Gcxygklm-Oqsfit (CENTRUM SILVER) 0.4 mg-300 mcg- 250 mcg [...] was stopped after severa (more content not included)...[facility]03-13-2025 Miscellaneous Notes* Telephone Encounter - Jenna Rodriguez CMA - 08/14/2024 11:55 AM EDT Lm to [facility] for Cv in October documented in this [facility]03-13-2025 Telephone encounter Note* Telephone Encounter - Jenna Rodriguez CMA - 08/14/2024 11:55 AM EDT Lm to [facility] for Cv in October [facility]03-08-2025 Miscellaneous Notes* Telephone Encounter - Pedro Rodriguez DO - 08/09/2024 5:16 AM EST Rx sent in.Due for CV recheck in October documented in this [facility]03-08-2025 Telephone encounter Note* Telephone Encounter - Pedro Rodriguez DO - 08/09/2024 5:16 AM EST Rx sent in.Due for CV recheck in October [facility]02-04-2025 History of Present illness Narrative* Silvestre Serna, OPERATIONS WELDER-LADIES' HAT TRIMMER - 07/08/2024 10:05 AM EST Lesions: Location: [...] limited to risks of scarring, darker or revenue accounting manager pigmentary changes, recurrence, incomplete removal and infection. [...] rec pt schedule FBSE documented in this encounterSSM Saint Mary's Health CenterYdxjmcrxvg31-32-4751 Telephone encounter Note* Telephone Encounter - Carolyn Osborn RN - 06/06/2024 4:19 PM EST Shauna contacted via phone and made aware to stop oral iron. Pt voiced an understanding. Carolyn Osborn RN [facility]01-03-2025 Miscellaneous Notes* Telephone Encounter - Carolyn [...] advise. Carolyn Osborn RN documented in this encounterCorey Hospital01-03-2025 Telephone encounter Note * Telephone Encounter - Mary Kate Sawyer APRN.NATALIO - 06/06/2024 2:08 PM EST Yes she can stop the oral while getting IV. Thanks. [facility] Work Phone: 1(278) 243-7364231524-20-8787 Telephone encounter Note* Telephone Encounter - Carolyn Osborn RN - 06/06/2024 1:44 PM EST Shauna is currently receiving 5 doses of IV venofer, had her 3rd dose today. She continues to take her oral iron at home as well but questions if she needs to. She is constipated and prefers to stop the oral if possible. Please advise. Carolyn Osborn RN [facility]12-23-2024 NoteHNO ID: [id number] Author: YULI MALIK LSW Service: ? Author Type: Senior Medical Billing Specialist Type: Progress Notes Filed: 05/26/2024 08:59 Note Text: Patient's name appears on the [facility] First Time Treatment Report for a non-oncology treatment. No psychosocial assessment is indicated. RADHA Leung Goals of Care Adavance Directives are not on file.[facility]12-23-2024 History of Present illness Narrative* Yuli Malik LSW - 05/26/2024 8:58 AM EST Patient's name appears on the [facility] First Time Treatment Report for a non- oncology treatment. No psychosocial assessment is indicated. RADHA Leung Goals of Care Adavance Directives are not on file. documented in this encounterCorey Hospital12-17-2024 Telephone encounter Note * Telephone Encounter - Greer Erazo - 05/20/2024 3:43 PM EST Patient has been scheduled for Venofer x5 and follow up w/ Suzie in September 2024. Thanks! Greer Erazo [facility]12-17-2024 Miscellaneous Notes* Telephone Encounter - Greer Erazo - 05/20/2024 3:43 PM EST Patient has been scheduled for Venofer x5 and follow up w/ Suzie in September 2024. Thanks! Greer Erazo * Telephone Encounter - Suzie Patel PA-C - 05/20/2024 10:54 AM EST 3 months after her last venofer infusion Suzie Patel PA-C * Telephone Encounter - Greer Erazo - 05/16/2024 12:49 PM EST I will call patient with results and appointments will be made from there Suzie: When would you like patient to follow up next? Greer Erazo * Telephone Encounter - Silvestre Aguiar RN - 05/16/2024 12:19 PM EST [...] please order Lizz/Fani: please call to schedule Silvestre Aguiar RN documented in this encounterCorey Hospital12-17-2024 Telephone encounter Note * Telephone Encounter - Suzie Patel PA-C - 05/20/2024 10:54 AM EST 3 months after her last venofer infusion Suzie Ana DAREN Patel [facility]12-13-2024 Telephone encounter Note* Telephone Encounter - Greer Erazo - 05/16/2024 12:49 PM EST I will call patient with results and appointments will be made from there Suzie: When would you like patient to follow up next? Greer Erazo [facility]12-13-2024 Telephone encounter Note* Telephone Encounter - Silvestre Aguiar RN - 05/16/2024 12:19 PM EST [...] please order Lizz/Fani: please call to schedule Silvestre Aguiar RN [facility]12-12-2024 History of Present illness Narrative* Suzie [...] metFORMIN (GLUCOPHAGE) 500 mg tablet MV with Zqx-Jvlmhedl-Zulyyg (CENTRUM SILVER) 0.4 mg-300 mcg- 250 mcg [...] which included preparing to see the patient, tmuy-nm-aeqi patient care, completing clinical documentation, performing a medically appropriate examination, counseling and educating the patient/family/caregiver, ordering medications, tests, or p rocedures, independently interpreting results (not separately reported), communicating results to the patient/family/caregiver, and care coordination (not separately reported). documented in this encounterCorey Hospital12-12-2024 NoteHNO ID: [id number] Author: SUZIE PATEL PA-C Service: ? Author Type: Physician Santa'S Helper Type: Progress Notes Filed: 05/15/2024 11:06 Note [...] metFORMIN (GLUCOPHAGE) 500 mg tablet MV with Xjc-Kuwzsuxu-Nskepn (CENTRUM SILVER) 0.4 mg-300 mcg- 250 mcg [...] deficiency anemia after de (more content not included)...[facility]10-29-2024 Telephone encounter Note* Telephone Encounter - Silvestre Aguiar RN - 04/01/2024 3:36 PM EDT Pt aware and agreeable to plan of care. Denies any symptoms of lightheaded/dizziness/fatigue, etc. Pt transferred to [facility] to schedule repeat labs/ MM in May. Pt denies any questions, needs or concerns at this time. Silvestre Aguiar RN [facility]10-29-2024 Miscellaneous Notes* Telephone Encounter - Silvestre Aguiar RN - 04/01/2024 3:36 PM EDT Pt aware and agreeable to plan of care. Denies any symptoms of lightheaded/dizziness/fatigue, etc. Pt transferred to [facility] to schedule repeat labs/ MM in May. Pt denies any questions, needs or concerns at this time. Silvestre Aguiar RN * Telephone Encounter - Silvestre Aguiar RN - 04/01/2024 3:34 PM EDT [...] back. Suzie Patel PA-C documented in this encounterCorey Hospital10-29-2024 Telephone encounter Note * Telephone Encounter - Silvestre Aguiar RN - 04/01/2024 3:34 PM EDT [...] and see me back. Suzie Patel PA-C [facility]10-28-2024 History of Present illness Narrative* Suzie Patle PA-C - 03/31/2024 2:30 PM EDT PATIENT [...] metFORMIN (GLUCOPHAGE) 500 mg tablet MV with Crr-Bthjueua-Salpzf (CENTRUM SILVER) 0.4 mg-300 mcg- 250 mcg [...] which included preparing to see the patient, zajv-ch-psao patient care, completing clinical documentation, performing a medically appropriate examination, counseling and educating the patient/family/caregiver, ordering medications, tests, or p rocedures, independently interpreting results (not separately reported), communicating results to the patient/family/caregiver, and care coordination (not separately reported). documented in this encounterCorey Hospital10-28-2024 NoteHNO ID: [id number] Author: SUZIE PATEL PA-C Service: ? Author Type: Physician Santa'S Helper Type: Progress Notes Filed: 03/31/2024 15:02 Note [...] metFORMIN (GLUCOPHAGE) 500 mg tablet MV with Hxq-Odlfzcmf-Yhsgrs (CENTRUM SILVER) 0.4 mg-300 mcg- 250 mcg [...] was initially diagnosed w (more content not included)...[facility]10-16-2024 Telephone encounter Note* Telephone Encounter - Emily Ta MA - 03/19/2024 11:38 AM EDT Patient has an appt on 03/31/24. Would you like labs, if so place orders. Emily Ta MA [facility]10-16-2024 Miscellaneous Notes* Telephone Encounter - Emily Salazar MA - 03/19/2024 11:38 AM EDT Patient has an appt on 03/31/24. Would you like labs, if so place orders. Emily Ta MA documented in this encounterCorey Hospital08-26-2024 Miscellaneous Notes* Telephone Encounter - Janet [...] PM EDT REFERRAL SENT documented in this encounterKettering [facility]08-26-2024 Telephone encounter Note* Telephone Encounter - Janet Gutierrez - 01/28/2024 12:01 PM EDT Patient needs a referral to [facility], said that we were supposed to send it in 01/16 [facility]08-26-2024 Telephone encounter Note* Telephone Encounter - Pedro Rodriguez DO - 01/28/2024 12:01 PM EDT Okay but her last labs were good [facility]08-26-2024 Telephone encounter Note* Telephone Encounter - Janet Gutierrez - 01/28/2024 12:01 PM EDT REFERRAL SENT [facility]08-15-2024 History of Present illness Narrative* Pedro Rodriguez DO - 01/17/2024 1:30 PM EDT Subjective Patient ID: Shauna Christensen is a 68 y.o. female. Dior presents today to recheck her iron. She has been taking her iron supplement. She does feel tired. She has seen the ruby developer in the past. She had a colonoscopy to rule out colon cancer. Shejust has trouble absorbing it. She does take a baby aspirin 81 mg daily. She does not have any heartburn issues. When she saw the ruby developer he was contemplating giving her an iron [...] and CBC. May need to see the ruby developer again. Obesity (BMI 30-39.9) She is obese. She would benefit from weight loss. Diet exercise and weight loss discussed. Allergic contact dermatitis due to plants, except food Continue prednisone. It should resolve. Go to the ER if you get short of breath. documented in this encounterKettering [facility] Hospital07-09-2024 History of Present illness Narrative* Pedro Rodriguez [...] Do you have a durable power of continuous process coffee roaster?: Yes Cognitive Screening Do you have trouble [...] 1 year (around 12/10/2024). documented in this encounterKettering Memorial Hospital06-24-2024 History of Present illness Narrative* Pedro Rodriguez [...] Objective Physical Exam Exam conducted with a audit tech present (Baltazar Gomez MS III). Constitutional: General: She is not in acute distress. Appearance: She is obese. HENT: Head: Normocephalic. Pulmonary: Effort: Pulmonary effort is normal. Musculoskeletal: General: No deformity. Assessment/Plan Diagnoses and all orders for this visit: Osteopenia, unspecified location Continue supplementation. Check DEXA to see if it has progressed. Asymptomatic postmenopausal state Check DEXA scan. documented in this encounterKettering Memorial Hospital05-08-2024 History of Present illness Narrative* Pedro Rodriguez [...] that. Her knee is slowly improving. Her specialist icu notes that it has taken longer than [...] need to go back to see the ruby developer. Impaired fasting glucose - Hemoglobin A1c; Future - Comprehensive metabolic panel; Future Check A1c Pedal edema - Compression stockings Prescription for compression hose given Chronic diastolic heart failure (CMS-HCC) ? Diagnosis. Put in in 2015 but no echo. She had a stress echo and EF was good with no mention of diastolic dysfunction. Consider echo. documented in this encounterDoctors HospitalAccess Pharmaceuticals Mclaren [id number] History of Present illness Narrative* Taryn Peguero, [...] for inflammation and muscle soreness (prn) Goals Director Of Social Work Goals Goal 1 : Patient will demonstrate [...] below. Physician Signature: Date: documented in this encounterSSM Saint Mary's Health CenterFwryasorqo82-74-9438 History of Present illness Narrative* Jr. Krishna Trujillo, - 07/04/2023 8:00 AM EST Images from the original note were not included. HISTORY OF PRESENT ILLNESS: EST PT Shauna Christensen is an 68 y.o. @ female. EST PT S/P (R) TKA 02/09/23 (4.5MO)- CONTINUES PT @ [facility] AND HEP- PT STATES SYMPTOMS HAVE IMPROVED- XRAY RT KNEE CHANGE 03/20/23 PT [facility] NO MDP/PREDNISONE NO RECENT LABS NOTES SOME DISCOMFORT MEDIAL KNEE- MINIMAL SWELLING- +IBUPROFEN PRN- INCREASE SYMPTOMS WITH INCREASE ACTIVITY- NOTES INCREASE ROM- PT ICES/ELEVATES ALLERGIES: No Known Allergies HOME MEDICATIONS: Current Outpatient Medications Medication Instructions aspirin 81 mg, Oral, Daily atorvastatin (Lipitor) 10 MG tablet 1 tablet, Oral, Every morning biotin 83748 MCG tablet 1 capsule, Every 24 hours Calcium Carbonate (CALCIUM 600 PO) Oral cholecalciferol (VITAMIN D-3) 14,000 Units, Oral, Daily ferrous sulfate 325 mg, Oral, Daily with breakfast levothyroxine (SYNTHROID, LEVOXYL) 50 mcg, Oral, Daily RT metFORMIN (Glucophage) 500 MG tablet uqdeaefankms-deyq-lvqvkfmf-folic acid (Centrum Silver, geriatric,) tablet as directed [...] Procedures Ambulatory referral to Physical Therapy Jean Gaspar Continue to increase strength and ROM Standing Status: Future Standing Expiration Date: 01/02/2024 Referral Priority: Routine Referral Type: Consultation Referral Reason: Consult and Treat Referred to Provider: Oneal Weston PT Requested Specialty: Physical Therapy Number of [...] she did a 2 mile hike at [facility] ~2 weeks ago. She has good strength and ROM, she feels she cotninues to benefit from formal physical therapy - we are recommending additional visits. We have discussed her HEP and restrictions and will see her back 6 months, when she returns from [place] to reassess her right knee ROM. May Sabillon MA documented in this encounterSSM Saint Mary's Health CenterArgygicdau15-15-4240 History of Present illness Narrative* Janelle Auguste, OPERATIONS WELDER-WAREHOUSE SUPERVISOR 3RD SHIFT - 06/19/2023 9:00 AM EST Subjective Patient [...] weakness. Coordination: Romberg sign negative. Coordination normal. Ytxjbf-Brzv-Vjtyna Test normal. Gait: Gait normal. Deep Tendon [...] all orders for this visit: 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[facility]) - Osmolality, urine; Future - Urinalysis [...] DAVID Rodriguez 06/19/23 1214 documented in this encounterKettering Memorial Hospital11-22-2023 Evaluation note* Encounter Date Diagnosis Assessment Notes Treatment Notes Treatment Clinical Notes Apr, Dysuria (ICD-10 - R30.0) Apr,cute cystitis with hematuria (ICD-10 - N30.01)Acute cystitis home care material was printed Drink plenty fluids, get plenty of rest. Take the Macrobid as prescribed until gone. Continue home medications as prescribed. You may take Tylenol or Motrin as needed for aches pains or fevers. Follow-up with your family physician if no improvement in 2 to 3 days [employer] Other 05-09-2023 Miscellaneous Notes* Telephone Encounter - Tabby Enamorado RN - 10/10/2022 11:24 AM EDT Thank you. Tabby Enamorado RN * Telephone Encounter - Laury Oh Sec - 10/10/2022 7:11 AM EDT Faxed to [facility] * Telephone Encounter - Tabby Enamorado RN - 10/09/2022 4:51 PM EDT PSS: Can you send the labs BRM ordered today to the . LMOV for patient to call the hospital first before heading over. * Telephone Encounter - Augustin Vital MD - 10/09/2022 4:26 PM EDT Orders placed for CBC and iron studies. Yarely, B * Telephone Encounter - Tabby Enamorado RN - 10/09/2022 4:09 PM EDT Patient states she does not see you until 01/04/23 but is just not feeling well. Would like to have some iron study lab work done. Would like to have that drawn at [facility]. If you place orders you would like, we can send to [place]. Please review and advise. ' Thanks. Tabby Enamorado RN documented in [facility] encounterCore[facility] Evaluation note* Encounter Date Diagnosis Assessment Notes Treatment Notes Treatment Clinical Notes October, Dysuria (ICD-10 - R30.0) October,Urinary tract infection, site not specified (ICD-10 - N39.0)Urinary tract infection (UTI) home care material was printed Drink plenty fluids, get plenty of rest. Take the Macrobid and Pyridium as prescribed until gone. Follow-up with your family physician if no improvement in 2 to 3 days. Continue home medications as prescribed, take Tylenol or Motrin as needed for aches pains or fevers October,Hematuria, unspecified (ICD-10 - R31.9) [employer] Other 03-30-2023 History of Present illness Narrative* [...] metFORMIN (GLUCOPHAGE) 500 mg tablet MV with Szd-Bkdtfpge-Pztttk (CENTRUM SILVER) 0.4 mg-300 mcg- 250 mcg [...] 2023. Augustin Vital MD documented in this encounterCorey Hospital01-23-2023 Miscellaneous Notes* Telephone Encounter - Silvana [...] as scheduled. Thanks, STEPHANIE documented in this encounterCorey Hospital01-19-2023 History of Present illness Narrative* Augustin Vital MD - 06/22/2022 6:45 AM EST PATIENT NAME: Shauna Christensen DATE: 06/22/2022 PRIMARY CARE PHYSICIAN: Pdero Rodriguez DO HPI: This is a 67 [...] metFORMIN (GLUCOPHAGE) 500 mg tablet MV with Rhk-Utgftlyp-Bqjneb (CENTRUM SILVER) 0.4 mg-300 mcg- 250 mcg [...] 2023. Augustin Vital MD documented in this encounterCorey Hospital01-18-2023 Note [id number]* Diagnosis Iron deficiency anemia, unspecified iron deficiency anemia type- Primary [facility]* Diagnosis Iron deficiency anemia, unspecified iron deficiency anemia type- Primary [facility] noteNo assessment information availableMercy Health T[facility] Work Phone: Evaluation note* Diagnosis Acute pain of right knee- Primary History of total knee replacement, right [facility]* Diagnosis Unilateral primary osteoarthritis, right knee- Primary Status post right knee replacement [facility]* Diagnosis Iron deficiency anemia, unspecified iron deficiency anemia type- Primary [facility]* Diagnosis Iron deficiency anemia, unspecified iron deficiency anemia type- Primary [facility]* Diagnosis Iron deficiency anemia, unspecified iron deficiency anemia type- Primary [facility]* Diagnosis Iron deficiency anemia, unspecified iron deficiency anemia type- Primary [facility]* Diagnosis Iron deficiency anemia, unspecified iron deficiency anemia type- Primary [facility]* Diagnosis Iron deficiency anemia, unspecified iron deficiency anemia type- Primary [facility]* Diagnosis Iron deficiency anemia, unspecified iron deficiency anemia type- Primary [facility]* Diagnosis Iron deficiency anemia, unspecified iron deficiency anemia type- Primary [facility]* Diagnosis Seborrheic keratosis- Primary Inflamed seborrheic keratosis [facility]* Diagnosis Mixed hyperlipidemia- Primary Iron deficiency anemia secondary to inadequate dietary iron intake Impaired fasting glucose Pedal edema Edema Chronic diastolic heart failure ([facility]) [facility]* Diagnosis 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[facility])- Primary Diabetes insipidus Fatigue, unspecified type 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 Poor concentration Memory loss documented [facility] this [facility]* Diagnosis Osteopenia, unspecified location- Primary Asymptomatic postmenopausal state [facility]* Diagnosis Medicare annual wellness visit, subsequent- Primary Screening for depression documented [facility]* Diagnosis Iron deficiency anemia secondary to inadequate dietary iron intake- Primary Obesity (BMI 30-39.9) Allergic contact dermatitis due to plants, except food Contact dermatitis and other eczema due to plants (except food) documented in this encounter [facility]* Diagnosis Iron deficiency anemia due to dietary causes- Primary Iron deficiency anemia secondary to inadequate dietary iron intake documented [facility]* Diagnosis Iron deficiency anemia, unspecified iron deficiency anemia type- Primary [facility]* Diagnosis Mixed hyperlipidemia- Primary Acquired hypothyroidism Unspecified hypothyroidism Obstructive sleep apnea Obstructive sleep apnea (adult) (pediatric) Pedal edema Edema Class 1 obesity due to excess calories with serious comorbidity and body mass index (BMI) of 32.0 to 32.9 in adult documented [facility] this encounter [facility]* Diagnosis Medicare annual wellness visit, subsequent- Primary Screening for depression documented [facility]* Diagnosis Iron deficiency anemia, unspecified iron deficiency anemia type- Primary documented in this encounter [facility]* Diagnosis Iron deficiency anemia, unspecified iron deficiency anemia type- Primary [facility]* Diagnosis Iron deficiency anemia, unspecified iron deficiency anemia type- Primary documented [facility]* Diagnosis Iron deficiency anemia, unspecified iron deficiency anemia type- Primary documented in this encounter [facility] note* Diagnosis Acute pain of right knee Lymphedema Other noninfectious lymphedema [facility] Narrative - Reported* Type Description Date Medical History bladder leakage Medical HistoryrosaceaMedical Historyvenous insufficiencySurgical HistoryC section x 2Surgical HistoryRight and left meniscus tearSurgical Historyplugged duct left breastHospitalization Historysee above [employer] Other History general Narrative - Reported* Type Description Date Medical History bladder leakage Medical HistoryrosaceaMedical Historyvenous insufficiencySurgical HistoryC section x 2Surgical HistoryRight and left meniscus tearSurgical Historyplugged duct left breastSurgical Historyknee replacement/2022Hospitalization Historysee above [employer] Other Hospital Discharge instructionsAdditional Instructions DISCHARGE INSTRUCTIONS FOR UPPER ENDOSCOPY WHAT [...] to schedule capsule endoscopy - Office number [phone]. [facility] Work Phone: InstructionsNot on filedocumented in this encounter [facility] [...] Health SystemInstructionsNot on filedocumented in this encounter [facility] Health SystemReason for referral (narrative)* Consultation (Routine) - Pending ReviewSpecialtyDiagnoses / ProceduresReferred By ContactReferred To ContactPhysical Therapy Diagnoses Acute pain of right knee Procedures [place] OFFICE/OUTPATIENT NEW HIGH MDM 60 MINUTES Jr. Krishna Trujillo DO [address] [facility] [address] [place] [address] Oneal Weston, PT [address] [facility] [address] [place] [address] Referral IDStatusReasonStart DateExpiration DateVisits RequestedVisits [id number] Review Consult and Treat / [facility] (narrative)* Consultation (Routine) - Pending ReviewSpecialtyDiagnoses / ProceduresReferred By ContactReferred To Contact Hematology Diagnoses Iron deficiency anemia due to dietary causes Pedro Rodriguez, DO [address], [place] [address] Augustin Vital MD [address] [place] [address] [place] [address] Referral IDStatusReasonStart DateExpiration DateVisits RequestedVisits [id number] Review Specialty Services Required / [facility] (narrative)No reason for referral information availableRegency Hospital Company Work Phone: Reason for visit Narrative* Consult, Test, Treat (Routine) - ClosedSpecialtyDiagnoses / ProceduresReferred By ContactReferred To ContactGastroenterology Diagnoses Iron deficiency anemia, unspecified iron deficiency anemia type Procedures CONSULT TO GASTROENTEROLOGY OFFICE/OUTPATIENT [facility] 60 MINUTES Suzie Patel PA-C [address] [place] [address] [place] [address] Phone: tel: fax: Referral IDStatusReasonStart DateExpiration DateVisits RequestedVisits [id number] PCP Requested Referral / [facility] for visit Narrative* [place] Prior Authorization (Routine) - AuthorizedSpecialtyDiagnoses / ProceduresReferred By ContactReferred To Contact Diagnoses Iron deficiency anemia, unspecified iron deficiency anemia type Procedures IRON SUCROSE INJECTION PER 1 MG Suzie Patel PA-C [address] [place] [address] [place] [address] Phone: tel: fax: Hematology/Oncology [address] [place] [address] [place] [address] Phone: tel: fax: Referral IDStatusReasonStart DateExpiration DateVisits RequestedVisits [id number] [facility] Summary Purpose Family History No Family History Records Found Relationship Condition Age at Onset Recorded Date/T andree father Unknown family memberDeceasedUnknownmotherMalignant neoplasmUnknownDeceasedUnknown Advance Directives No Advanced Directives Records Found Advance Directive Response Recorded Date/ Time Advance Directives No August 20 019 10:18am Advance Directive Response Recorded Date/ Time Advance Directives No August 20 11:18am Chief Complaint and Reason for Visit Chief Complaint Admit Date Refer: VERN February 18, 2025 1:23pm Iron def anemia March 24, 2025 1 0:17am Reason for Visit Admit Date Iron deficiency anemia February 18 1:23pm Chief Complaint Dysuria Chief Complaint poison prema face/hand s Chief Complaint Admit Date Refer: VERN February 18, 2025 1:23pm Additional Source Comments INFORMATION SOURCE (unrecogn ized section and content) DATE CREATED AUTHOR 02/11/2022 [facility] DATE CREATED AUTHOR AUTHOR'S ORGANIZ ATION 06/12/2022 [facility] [employer] DATE CREATED AUTHOR AUTHOR'S ORGANIZ ATION 08/12/2022 [facility] DATE CREATED AUTHOR AUTHOR'S ORGANIZ ATION 10/15/2022 [facility] DATE CREATED AUTHOR AUTHOR'S ORGANIZ ATION 01/19/[address] [facility] DATE CREATED AUTHOR AUTHOR'S ORGANIZ ATION 12/16/2024 [facility] DATE CREATED AUTHOR AUTHOR'S ORGANIZ ATION 02/24/2025 [facility] DATE CREATED AUTHOR AUTHOR'S ORGANIZ ATION 03/19/2025 [facility] DATE CREATED AUTHOR AUTHOR'S ORGANIZ ATION 03/22/2025 [facility] DATE CREATED AUTHOR AUTHOR'S ORGANIZ ATION 03/25/2025 [facility] Source Comments (unrecognize d section and content) In the event this informatio n is protected by the Federal Confidentiality of Alcohol and Drug Abuse Patient Records regulations: The Federal rules restrict any use of the information to criminally investigate or prosecute any alcohol or drug abuse patient.Corey HospitalIn the event this information is protected by the Federal Confidentiality of Alcohol and Drug Abuse Patient Records regulations: The Federal rules restrict any use of the information to criminally investigate or prosecute any alcohol or drug abuse patient.[facility] HospitalIn the event this information is protected by the Federal Confidentiality of Alcohol and Drug Abuse Patient Records regulations: The Federal rules restrict any use of the information to criminally investigate or prosecute any alcohol or drug abuse patient.[facility]y HospitalIn the event this information is protected by the Federal Confidentiality of Alcohol and Drug Abuse Patient Records regulations: The Federal rules restrict any use of the information to criminally investigate or prosecute any alcohol or drug abuse patient.Corey HospitalIn the event this information is protected by the Federal Confidentiality of Alcohol and Drug Abuse Patient Records regulations: The Federal rules restrict any use of the information to criminally investigate or prosecute any alcohol or drug abuse patient.Corey HospitalIn the event this information is protected by the Federal Confidentiality of Alcohol and Drug Abuse Patient Records regulations: The Federal rules restrict any use of the information to criminally investigate or prosecute any alcohol or drug abuse patient.[facility] HospitalIn the event this information is protected by the Federal Confidentiality of Alcohol and Drug Abuse Patient Records regulations: The Federal rules restrict any use of the information to criminally investigate or prosecute any alcohol or drug abuse patient.Corey HospitalIn the event this information is protected by the Federal Confidentiality of Alcohol and Drug Abuse Patient Records regulations: The Federal rules restrict any use of the information to criminally investigate or prosecute any alcohol or drug abuse patient.[facility] HospitalIn the event this information is protected by the Federal Confidentiality of Alcohol and Drug Abuse Patient Records regulations: The Federal rules restrict any use of the information to criminally investigate or prosecute any alcohol or drug abuse patient.Corey HospitalIn the event this information is protected by the Federal Confidentiality of Alcohol and Drug Abuse Patient Records regulations: The Federal rules restrict any use of the information to criminally investigate or prosecute any alcohol or drug abuse patient.Core[facility] HospitalIn the event this information is protected by the Federal Confidentiality of Alcohol and Drug Abuse Patient Records regulations: The Federal rules restrict any use of the information to criminally investigate or prosecute any alcohol or drug abuse patient.Corey HospitalIn the event this information is protected by the Federal Confidentiality of Alcohol and Drug Abuse Patient Records regulations: The Federal rules restrict any use of the information to criminally investigate or prosecute any alcohol or drug abuse patient.[facility] HospitalIn the event this information is protected by the Federal Confidentiality of Alcohol and Drug Abuse Patient Records regulations: The Federal rules restrict any use of the information to criminally investigate or prosecute any alcohol or drug abuse patient.Corey HospitalIn the event this information is protected by the Federal Confidentiality of Alcohol and Drug Abuse Patient Records regulations: The Federal rules restrict any use of the information to criminally investigate or prosecute any alcohol or drug abuse patient.Core[facility] HospitalIn the event this information is protected by the Federal Confidentiality of Alcohol and Drug Abuse Patient Records regulations: The Federal rules restrict any use of the information to criminally investigate or prosecute any alcohol or drug abuse patient.Corey HospitalIn the event this information is protected by the Federal Confidentiality of Alcohol and Drug Abuse Patient Records regulations: The Federal rules restrict any use of the information to criminally investigate or prosecute any alcohol or drug abuse patient.Corey HospitalIn the event this information is protected by the Federal Confidentiality of Alcohol and Drug Abuse Patient Records regulations: The Federal rules restrict any use of the information to criminally investigate or prosecute any alcohol or drug abuse patient.Corey HospitalIn the event this information is protected by the Federal Confidentiality of Alcohol and Drug Abuse Patient Records regulations: The Federal rules restrict any use of the information to criminally investigate or prosecute any alcohol or drug abuse patient.Corey HospitalIn the event this information is protected by the Federal Confidentiality of Alcohol and Drug Abuse Patient Records regulations: The Federal rules restrict any use of the information to criminally investigate or prosecute any alcohol or drug abuse patient.Core[facility] HospitalIn the event this information is protected by the Federal Confidentiality of Alcohol and Drug Abuse Patient Records regulations: The Federal rules restrict any use of the information to criminally investigate or prosecute any alcohol or drug abuse patient.Corey HospitalIn the event this information is protected by the Federal Confidentiality of Alcohol and Drug Abuse Patient Records regulations: The Federal rules restrict any use of the information to criminally investigate or prosecute any alcohol or drug abuse patient.Core[facility] HospitalIn the event this information is protected by the Federal Confidentiality of Alcohol and Drug Abuse Patient Records regulations: The Federal rules restrict any use of the information to criminally investigate or prosecute any alcohol or drug abuse patient.Corey HospitalIn the event this information is protected by the Federal Confidentiality of Alcohol and Drug Abuse Patient Records regulations: The Federal rules restrict any use of the information to criminally investigate or prosecute any alcohol or drug abuse patient.Corey HospitalIn the event this information is protected by the Federal Confidentiality of Alcohol and Drug Abuse Patient Records regulations: The Federal rules restrict any use of the information to criminally investigate or prosecute any alcohol or drug abuse patient.Core[facility] HospitalIn the event this information is protected by the Federal Confidentiality of Alcohol and Drug Abuse Patient Records regulations: The Federal rules restrict any use of the information to criminally investigate or prosecute any alcohol or drug abuse patient.[facility] HospitalIn the event this information is protected by the Federal Confidentiality of Alcohol and Drug Abuse Patient Records regulations: The Federal rules restrict any use of the information to criminally investigate or prosecute any alcohol or drug abuse patient.Core[facility] HospitalIn the event this information is protected by the Federal Confidentiality of Alcohol and Drug Abuse Patient Records regulations: The Federal rules restrict any use of the information to criminally investigate or prosecute any alcohol or drug abuse patient.[facility] Care Teams (unrecognized sec tion and content) Team MemberRelationshipSpecialtyStart DateEnd Date Pedro Rodriguez, DO [address] [facility] [place] [address] PCP - GeneralFamily Medicine06/16/22 Gabo Pearce MD [address] [place] [address] (Fax) [facility]06/21/22Team MemberRelationshipSpecialtyStart DateEnd Date Pedro Rodriguez, DO [address] [place] [address] PCP - Generalmi Medicine06/16/22 Gabo Pearce MD [address] [place] [address] (Fax) [facility]06/21/22Team MemberRelationshipSpecialtyStart DateEnd Date Pedro Rodriguez, DO [address] [place] [address] PCP - GeneralFamily Medicine06/16/22 Gabo Pearce MD [address] [place] [address] (Fax) [facility]06/21/22Team MemberRelationshipSpecialtyStart DateEnd Date Pedro Rodriguez, DO [address] [place] [address] PCP - GeneralFamily Medicine06/16/22 Gabo Pearce MD [address] [place] [address] (Fax) [facility]06/21/22Team MemberRelationshipSpecialtyStart DateEnd Date Pedro Rodriguez, DO [address] [place] [address] PCP - GeneralFami Medicine06/16/22 Gabo Pearce MD [address] [place] [address] Family Medicine06/21/22 Team Status: Inactive Member Role Status Dates Taryn Dobson , EVELYNE-C Attending Provider Active Team MemberRelationshipSpecialtyStart DateEnd Date Pedro Rodriguez MD [address] [place] [address] PCP - [facility] Medicine02/27/23Team MemberRelationshipSpecialtyStart DateEnd Date Pedro Rodriguez MD [address], [place] [address] [facility] - [facility]02/27/23Team MemberRelationshipSpecialtyStart DateEnd Date Pedro Rodriguez MD [address], [place] [address] PCP - Generalmi Medicine02/27/23 Team Status: Active Member Role Status Dates Pedro Rodriguez DO Primary Care Provider Active Team Status: Inactive Member Role Status Dates Pedro Rodriguez DO Primary Care Provider Active Start: January 16, 2024 End: January 16, 2024Marvin Ryder ProviderActiveStart: January 16, 2024 End: January 16, 2024Team MemberRelationshipSpecialtyStart DateEnd Date Pedro Rodriguez DO [address] [address] PCP - GeneralFamily Medicine06/16/22 Gabo Pearce MD [address] [place] [address] (Fax) Family [facility]06/21/22Te MemberRelationshipSpecialtyStart DateEnd Date [facility] HospitalgillianPedro DO [address] [place] [address] PCP - GeneralFamily Medicine06/16/22 Gabo Pearce MD [address] [place] [address] (Fax) [facility]06/21/22Te MemberRelationshipSpecialtyStart DateEnd Date SomisPedro DO [address] [place] [address] PCP - Generalmi Medicine06/16/22 Gabo Pearce MD [address] [place] [address] (Fax) [facility]06/21/22Te MemberRelationshipSpecialtyStart DateEnd Date SomisMartPedro DO Greta [address] [place] [address] PCP - Generalmi Medicine06/16/22 Gabo Pearce MD [address] [place] [address] (Fax) Family Medicine06/21/22Team MemberRelationshipSpecialtyStart DateEnd Date Pedro Rodriguez DO [address] [place] [address] PCP - GeneralFamily Medicine06/16/22 Gabo Pearce MD [address] [place] [address] (Fax) Family Medicine06/21/22Team MemberRelationshipSpecialtyStart DateEnd Date Pedro Rodriguez DO [address] [place] [address] PCP - GeneralFamily Medicine06/16/22 Gabo Pearce MD [address] [place] [address] (Fax) Family Medicine06/21/22Team MemberRelationshipSpecialtyStart DateEnd Date Pedro Rodriguez DO [address] [place] [address] PCP - GeneralFamily Medicine10/12/20Team MemberRelationshipSpecialtyStart DateEnd Date Pedro Rodriguez [address] [place] [address] PCP - GeneralFamily Medicine06/16/22 Gabo Pearce MD [address] [facility] [place] [address] (Fax) Family Medicine06/21/22Team MemberRelationshipSpecialtyStart DateEnd Date Pedro Rodriguez DO [address] [place] [address] PCP - GeneralFamily Medicine06/16/22 Gabo Pearce MD [address] [place] [address] (Fax) [facility]06/21/22Team MemberRelationshipSpecialtyStart DateEnd Date Pedro Rodriguez DO [address] [place] [address] PCP - Generalmi Medicine06/16/22 Gabo Pearce MD [address] [place] [address] (Fax) [facility]06/21/22Team MemberRelationshipSpecialtyStart DateEnd Date Pedro Rodriguez DO [address] [place] [address] PCP - Generalmi Medicine06/16/22 Gabo Pearce MD [address] [place] [address] (Fax) [facility]06/21/22Team MemberRelationshipSpecialtyStart DateEnd Date Pedro Rodriguez MD [address] [place] [address] PCP - GeneralFamily Medicine02/27/23Team MemberRelationshipSpecialtyStart DateEnd Date Pedro Rodriguez MD [address] [place] [address] PCP - GeneralFamily Medicine02/27/23Team MemberRelationshipSpecialtyStart DateEnd Date Pedro Rodriguez DO [address], [place] [address] PCP - Generalmily Medicine10/12/20Team MemberRelationshipSpecialtyStart DateEnd Date Pedro Rodriguez DO [address], [place] [address] PCP - Generalmily Medicine10/12/20Team MemberRelationshipSpecialtyStart DateEnd Date Pedro Rodriguez DO [address], [place] [address] PCP - GeneralFamily Medicine10/12/20Team MemberRelationshipSpecialtyStart DateEnd Date Pedro Rodriguez DO [address], [place] [address] PCP - GeneralFamily Medicine10/12/20Team MemberRelationshipSpecialtyStart DateEnd Date Pedro Rodriguez DO [address], [place] [address] PCP - GeneralFamily Medicine10/12/20Team MemberRelationshipSpecialtyStart DateEnd Date Pedro Rodriguez DO [address] [place] [address] PCP - Generalmily Medicine10/12/20Team MemberRelationshipSpecialtyStart DateEnd Date Pedro Rodriguez DO [address] [place] [address] PCP - Generalmily Medicine10/12/20Team MemberRelationshipSpecialtyStart DateEnd Date Pedro Rodriguez DO [address] [place] [address] PCP - Generalmily Medicine06/16/22 Gabo Pearce MD [address] [facility] [place] [address] (Fax) [facility]06/21/22Team MemberRelationshipSpecialtyStart DateEnd Date Pedro Rodriguez DO [address] [place] [address] [facility] Gabo Pearce MD [address] [facility] [address] (Fax) [facility]06/21/22Team MemberRelationshipSpecialtyStart DateEnd Date Pedro RodriguezDO [address] [place] [address] PCP - GeneralFamily Medicine10/12/20Team MemberRelationshipSpecialtyStart DateEnd Date Pedro Rodriguez Anitra [address] [place] [address] PCP - GeneralFamily Medicine10/12/20Team MemberRelationshipSpecialtyStart DateEnd Date Lynettederrickgillian Pedro Dunbar DO [address] [place] [address] PCP - GeneralFamily Medicine06/16/22 Gabo Pearce MD [address] [place] [address] (Fax) Family [facility]06/21/22Team MemberRelationshipSpecialtyStart DateEnd Date Sharon Pedro GarcíaardDO [address] [place] [address] PCP - Generalmily Medicine06/16/22 Gabo Pearce MD [address] [place] [address] (Fax) Family [facility]06/21/22Team MemberRelationshipSpecialtyStart DateEnd Date Mart Rodriguezshahram Dunbar DO [address] [place] [address] PCP - GeneralFamily Medicine06/16/22 Gabo Pearce MD [address] [facility] [place] [address] (Fax) Family Medicine06/21/22Team MemberRelationshipSpecialtyStart DateEnd Date Pedro RodriguezDO [address] [place] [address] PCP - GeneralFamily Medicine06/16/22 Gabo Pearce MD [address] [place] [address] (Fax) [facility]06/21/22Team MemberRelationshipSpecialtyStart DateEnd Date Pedro Rodriguez DO Greta [address] [place] [address] PCP - Generalmily Medicine06/16/22 Gabo Pearce MD [address] [place] [address] (Fax) [facility]06/21/22Team MemberRelationshipSpecialtyStart DateEnd Date Pedro RodriguezDO [address] [place] [address] PCP - GeneralFamily Medicine06/16/22 Gabo Pearce MD [address] [place] [address] (Fax) [facility]06/21/22Team MemberRelationshipSpecialtyStart DateEnd Date Pedro Rodriguez MD PCP - [facility]02/27/23 Team Status: Inactive Member Role Status Dates Pedro Rodriguez DO Primary Care Provider Active Start: February 18, 2025 End: February 18, 2025ImaFredo Mckinley ProviderActiveStart: February 18, 2025 End: February 18, 2025Team MemberRelationshipSpecialtyStart DateEnd Date Pedro Rodriguez MD [address], [place] [address] [facility]03/11/25Team MemberRelationshipSpecialtyStart DateEnd Date Pedro Rodriguez MD [address], [facility] [place] [address] [facility] - [facility]03/11/25 Team Status: Active Member Role/Relationship Status Dates Pedro Rodriguez DO Primary Care Provider Active Team Status: Inactive Member Role/Relationship Status Dates Pedro Rodriguez DO Primary Care Provider Active Start: February 18, 2025 End: February 18, 2025Fredo Cisneros ProviderActiveStart: February 18, 2025 End: February 18, 2025 Team Status: Active Member Role/Relationship Status Dates Pedro Rodriguez DO Primary Care Provider Active Start: March 24, 2025 Fredo Cisneros ProviderActiveStart: March 24, 2025 Guillermina Cisneros ProviderActiveStart: March 24, 2025 Reason for Visit (unrecogniz ed section and content) ReasonCommentsAnemiaNew patient consultReasonCommentsResultsReasonCommentsAnemia 2 month follow upReasonCommentsOrdersReasonCommentsPainSpecialtyDiagnoses / ProceduresReferred By ContactReferred To ContactPhysical Therapy Diagnoses Presence of right artificial knee joint Procedures NH THERAPEUTIC PX 1/> AREAS EACH 15 MIN EXERCISES PHYS/OCC THERAPY SS NH THER PX 1/> AREAS EACH 15 MIN NEUROMUSC REEDUCA NH MANUAL THERAPY TQS 1/> REGIONS EACH 15 MINUTES Jr. 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 Procedures AMB REFERRAL TO HEMOPHILIA Pedro Rodriguez, DO [address] ON LICENSE OF [facility] [place] [place] [address] Augustin Vital MD [address] [place] [address] [place] [address] Referral IDStatusReasonStart DateExpiration DateVisits RequestedVisits [id number] PCP/[id number] IDStatusReasonStart DateExpiration DateVisits RequestedVisits [id number] Review [id number]yLxyqwfagaLiiujyijm / Procedures Referred By ContactReferred To Contact Diagnoses Iron deficiency anemia, unspecified iron deficiency anemia type Procedures IRON SUCROSE INJECTION PER 1 MG Narciso Aguilar MD [address] [place] [address] [place] [address] Gonzalo Treat Ev[address] [place] [address] Referral IDStatusReasonStart DateExpiration DateVisits RequestedVisits [id number]/17/202412/[id number] DateCommentsMed [id number] QuestionOral ironReasonCommentsSuspicious Skin LesionReasonCommentsMed RefillReasonCommentsHyperlipidemiaHypertension ReasonCommentsbrain fog. from surgeryReasonOnset DateCommentsMed Refill 4ReasonCommentsMAWReasonCommentsdiscuss ironReasonOnset DateCommentsMed Ssrdxp694ReasonCommentsAnemiaFollow upReasonOnset DateCommentsResults 09/18/2024ReasonCommentsmawReasonCommentsAnemiaSpecialtyDiagnoses / Procedures Referred By ContactReferred To ContactHematology Diagnoses Iron deficiency anemia due to dietary causes Procedures AMB REFERRAL TO HEMOPHILIA Pedro Rodriguez DO Phone: tel: fax: Augustin Vital MD [address] [place] [address] [place] [address] Phone: tel: fax: ReasonCommentsFuture AppointmentReasonOnset DateCommentsdental appointment 02/12/2025 Goals (unrecognized section and content) [...] BE BASED ON THE PRIMARY CLINICAL RECORDS. [facility]. provides no warranty or guarantee of the accuracy or completeness of information in this document.
[2025-03-27 12:29] LABS: Alanine Aminotransferase 33 U/L (14-59); Albumin Globulin Ratio 1.0; Albumin Level 3.5 g/dL (3.4-5.0); Alkaline Phosphatase 104 U/L (46-116); Anion Gap 14.9; Aspartate Amino Transferase 19 U/L (15-37); Blood Urea Nitrogen 18.0 mg/dL (7.0-18.0); Calcium 9.0 mg/dL (8.5-10.1); Carbon Dioxide 27.3 mmol/L (21.0-32.0); Chloride 104 mmol/L (98-107); Estimated GFR (African America >60 (>=60 mL/min/1.73m^2); Estimated GFR (Non-African Ame >60 (>=60 mL/min/1.73m^2); Globulin 3.4 g/dL; Glucose 84 mg/dL (74-106); Potassium 4.2 mmol/L (3.5-5.1); Sodium 142 mmol/L (136-145); Total Protein 6.9 g/dL (6.4-8.2)
== END 2025-03-27 10:33 | disposition home or self-care (01) ==
LOC: LAB 10:34
PROVIDERS: PCP Family Medicine; Visit Provider Physician Assistant Medical
DX: D50.9 Iron deficiency anemia, unspecified (principal)
CPT/HCPCS: 36415; 80053

== ENCOUNTER 2025-04-06 07:44 | Outpatient (OUT) | payer MEDICARE, SELFPAY ==
--- NOTE | 2025-04-06 07:46 | MM_ITS ---
Patient Name: SHAUNA CHRISTENSEN MR#: [id number] : 1955 Exam Date: 04/06/2025 Ordering Doctor: DR LASHA RODRIGUEZ RADIOLOGY REPORT PROCEDURE: MM TOMOSYNTHESIS SCREENING BI COMPARISON: MM TOMOSYNTHESIS SCREENING BI, 04/02/2024. MM TOMOSYNTHESIS SCREENING BI, 03/29/2023. MG MAMM SCREEN 3D AMANDA CAD, 03/06/2022. MG MAMM AMANDA SCRN W CAD DIG, 09/29/2013. INDICATIONS: Screening Calculator Name NCI Breast Cancer Risk Assessment Tool 5 Year Breast Cancer Risk 3.70% Lifetime Breast Cancer Risk 9.90% Personal Breast Cancer No Personal Ovarian Cancer No Treatments None Family Cancers Mother with hodgkins cancer at age 34. LOCATION: [facility] BREAST COMPOSITION: The breasts are heterogeneously dense, which may obscure small masses. FINDINGS: DIAGNOSTIC CATEGORY 1--NEGATIVE. RIGHT BREAST: No significant suspicious finding. LEFT BREAST: No significant suspicious finding. RECOMMENDATIONS: ROUTINE MAMMOGRAM AND CLINICAL EVALUATION IN 12 MONTHS. Dictated by: Earnest Phan MD on 04/06/2025 at 14:30 Approved by: Earnest Phan MD on 04/06/2025 at 14:32
--- OUTSIDE RECORDS SUMMARY | 2025-04-06 07:46 | XMS_ITS | Encounter Summary ---
Author Organization [facility] Address [id number] [place] [address] Care Team Providers Care Tattoo Designer Name Role Phone MariPedro french Primary Care Provider [phone] Encounter Details DateTypeDepartmentCare Team (Latest Contact Info)Efvmxwwlrrf08/22/2025Orders Only [facility] [address] [place] [address] Ref Prov, [place] [address] Social History Tobacco UseTypesPacks/DayYears UsedDateSmoking Tobacco: NeverSmokeless Tobacco: NeverAlcohol UseStandard Drinks/WeekCommentsYes0 (1 standard drink = 0.6 oz pure alcohol)OccasionalAHC UtilitiesAnswerDate RecordedIn the past 12 months has the electric, gas, oil, or water Collisionable threatened to shut off services in your home?No10/10/2023Social Connection and Isolation PanelAnswerDate RecordedIn a typical week, how many times do you talk on the phone with family, friends, or neighbors?More than three times a week09/28/2022How often do you get together with friends or relatives?Twice a week09/28/2022How often do you attend quaker or confucianist services?More than 4 times per year09/28/2022o you belong to any clubs or organizations such as quaker groups, unions, fraternal or athletic perla ups, or school groups?No09/28/2022How often do you attend meetings of the clubs or organizations you belong to?Never09/28/2022re you , , , , never , or living with a partner?Kgcxztj5009/28/2022 AUDIT-CAnswerDate RecordedQ1: How often do you have [...] and heating?Not hard at all09/28/2022 PHQ-2AnswerDate RecordedTotal Pwmdq910F[facility]. 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 [...] InformationValueDate RecordedSex Assigned at BirthNot on fileLegal TfzSmhynv74/06/2015 11:48 AM EDT Gender IdentityNot on fileSexual OrientationNot on filedocumented as of this encounter Plan of Treatment DateTypeDepartmentCare Team (Latest Contact Info)Endskzeskqg88/04/2025 8:45 AM ESTAppointment [facility] [address] [place] [address] 04/23/2025 1:15 PM ESTOffice Visit [facility] [address] [place] [address] Pedro Herrera, DO [address] [facility] [place] [address] 12/15/2025 3:00 PM EDTOffice Visit [facility] [address] [place] [address] documented as of this encounter Procedures Procedure [...] follow-up plan has been documented for the gdiutlw8810/03/2024 1:59 PM EDTdocumented as of this encounter Care Teams Team MemberRelationshipSpecialtyStart DateEnd Date Pedro Herrera DO [address], [facility] [place] [address] PCP - GeneralFamily Medicine10/12/20documented as of this encounter
--- OUTSIDE RECORDS SUMMARY | 2025-04-06 07:46 | XMS_ITS | Encounter Summary ---
Author Organization [employer] [facility] tem Address [id number] [place] [address] Care Team Providers Care Scholarship Counselor Name Role Phone Pedro Herrera DO Primary Care Provider Encounter Details DateTypeDepartmentCare Team (Latest Contact Info)Jrnehbfzqlt58/30/2025Travel Social History Tobacco UseTypesPacks/DayYears UsedDateSmoking Tobacco: NeverSmokeless [...] relatives?Twice a week09/28/2022How often do you attend rastafari or muslim services?More than 4 times per year09/28/2022o you belong to any clubs or organizations such as rastafari groups, unions, fraternal or athletic perla ups, or school groups?No09/28/2022How often do you attend meetings of the clubs or organizations you belong to?Never09/28/2022re you , , , , never , or living with a partner?Adcxtuf9909/28/2022 AUDIT-CAnswerDate RecordedQ1: How often do you have [...] and heating?Not hard at all09/28/2022 PHQ-2AnswerDate RecordedTotal Kytnm375FinFranciscan Health [place] of Occupational Health - Occupational Stress QuestionnaireAnswerDate [...] part of a household?No09/28/2022hildcareAnswerDate RecordedDo 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 [...] InformationValueDate RecordedSex Assigned at BirthNot on fileLegal JctWyxhof28/06/2015 11:48 AM EDT Gender IdentityNot on fileSexual OrientationNot on filedocumented as of this encounter Plan of Treatment DateTypeDepartmentCare Team (Latest Contact Info)Flvxvrlordx12/04/2025 8:45 AM ESTAppointment [facility] [address] [place] [address] 04/23/2025 1:15 PM ESTOffice Visit [facility] [address] [place] [address] Pedro Herrera DO [address] [place] [address] 12/15/2025 3:00 PM EDTOffice Visit [facility] [address] [place] [address] documented as of this encounter Visit Diagnoses Not on filedocumented in this encounter Additional Health Concerns AssessmentNoted TimePHQ-9 Depression Total Score: 1:42 PM EDTA Body Mass Index follow-up plan has been documented for the llqlcck0910/03/2024 1:59 PM EDTdocumented as of this encounter Care Teams Team MemberRelationshipSpecialtyStart DateEnd Date Pedro Herrera DO [address] [place] [address] [address] PCP - GeneralFamily Medicine10/12/20documented as of this encounter
--- OUTSIDE RECORDS SUMMARY | 2025-04-06 07:46 | XMS_ITS | Clinical Summary ---
Author Organization [facility] Address [address] [place] [address] Phone Care Team Providers Care Ben Day Artist Name Role Phone Unavailable Primary Care Provider Unavailabl e Social History Tobacco UseTypesPacks/DayYears UsedDateSmoking Tobacco: Never Assessed CommentsUnknownSex and Gender InformationValueDate RecordedSex Assigned at Not on fileLegal GypQnlczf24/26/2022 3:54 AM ESTGender IdentityNot on fileSexual OrientationNot on file Plan of Treatment Not on file
--- OUTSIDE RECORDS SUMMARY | 2025-04-06 07:46 | XMS_ITS | Clinical Summary ---
Author Organization [facility] Address [address] [place] [address] Care Team Providers Care Water Service Dispatcher Name Role Phone Pedro Herrera DO Primary Care Provider Gabo Pearce MD Unavailable [phone] Allergies No known active allergies Medications MedicationSigDispense QuantityRefillsLast FilledStart DateEnd DateStatus atorvastatin (LIPITOR) 10 mg tablet 06/06/2022ctive Biotin 10,000 mcg cap 1 capsule.Active calcium citrate (CALCITRATE) 200 mg (950 mg) tab Active Cholecalciferol, Vitamin D3, 250 mcg (10,000 unit) cap Take by mouth. Takes 14,000units dailyActive SYNTHROID 50 mcg tablet 05/06/2022ctive metFORMIN (GLUCOPHAGE) 500 mg tablet 06/06/2022ctive MV with Ycz-Dayxiwnj-Xdxddn (CENTRUM SILVER) 0.4 mg-300 mcg- 250 mcg tab See Admin Instructions.Active oxybutynin ER (DITROPAN XL) 15 mg 24 hr Extended Rel Tab 05/06/2022ctive Active Problems ProblemNoted DateDiagnosed DateIron (Fe) deficiency cjrcgo6305/19/2024 Encounters DateTypeDepartmentCare PaisUtntbhszhjo89/24/2025Telephone Hematology/Oncology [address] [place] [address] [place] [address] Rosa Aguiar RN Outside Labs Jqoqrsw1502/23/2025Telephone Cancer Appts [address] [place] [address] Suzie Delgadillo PA-C Patient Euofeybw52/11/2025 9:00 AM [facility] Hematology/Oncology [address] [place] [address] [place] [address] Iron deficiency anemia, unspecified iron deficiency anemia type (Primary Dx) 01/05/2025 9:40 AM [facility] Hematology/Oncology [address] [place] [address] [place] [address] Brianna, Chair 4 Iron deficiency anemia, unspecified [...] age 7+ yr, 5 Lf tetanus, PF (TENIVAC)09/22/2013zoster (RZV) vaccine, recombinant (SHINGRIX)03/03/2018,12/21/2017zoster (ZVL) vaccine, live (ZOSTAVAX)07/25/2015 Family History Medical HistoryRelationCommentsLeukemiaFatherHodgkin LymphomaMotherRelation StatusCommentsFatherDeceasedMotherDeceased Social History Tobacco UseTypesPacks/DayYears UsedDateSmoking Tobacco: NeverPassive Smoke Exposure: NeverSmokeless Tobacco: Never Tobacco Cessation:Counseling Given: Not Answered Alcohol UseStandard Drinks/WeekCommentsYes0 (1 standard drink = 0.6 oz pure alcohol)occasionalPHQ-2AnswerDate RecordedPHQ-2 fkhhq5685Area Deprivation IndexAnswerDate RecordedNational Score (1-100), lower number is lower risk63 03/31/2024State Score (1-10), lower number is lower lrfx7174Data from: https://www.neighborhoodatlas.[facility].edu/. Last address used for pvrlfms[address] [facility] 4CommentsNoSex and Gender InformationValueDate RecordedSex Assigned at BirthNot on fileLegal SexFemale 04/30/2013 11:04 AM ESTGender IdentityNot on fileSexual OrientationNot on file Last Filed Vital Signs Vital SignReadingTime TakenCommentsBlood Kndkhkvy261/7401/12/2025 9:17 AM EDT Ohzfk148801/12/2025 9:17 AM UPIVofrydfcsij26.7 ??C (98.1 ??F)01/12/2025 9:17 AM EDTRespiratory Muem863901/12/2025 9:17 AM EDTOxygen Dqdjgfjdxz19%01/12/2025 9:17 AM EDTInhaled Oxygen Concentration--Deqnvc98.8 kg (186 lb 15.2 oz)12/22/2024 8:30 AM IJIDahgif280.6 cm (5' 2.84 )09/17/2024 10:35 AM EDTBody Mass Index33.29 09/17/2024 10:35 AM EDT Plan of Treatment DateTypeDepartmentCare Team (Latest Contact Info)Lzevjuyfeon45/17/2025 9:00 AM ESTVisit (SP) Office Hematology/Oncology [address] [place] [address] [place] [address] Soraya Madison APRN.SLICING MACHINE OPERATOR [address] [place] [address] 3 month follow up after lab04/20/2025 9:30 AM [facility] Hematology/Oncology [address] [place] [address] 3 month follow up after labHealth MaintenanceDue DateLast DoneCommentsAnxiety Awiqgsfdm40/01/1972Depression Sswedbtzo74/01/1972Hepatitis C Siwxjhxxb26/01/[address] CT Dnudlkhdjqqz99/01/1999Cologuard (FIT-DNA)02/02/19993454Vgfnvhughmlma26/01/1999 DTaP,Tdap,Td Vaccine (1 - Tdap)Colonoscopy10/06/2014 10/06/2013Mammogram Ocxhtegvc71, 01/20/2020, 12/18/2018, Additional history existsColorectal Cancer Xmcwcvfsg78/15/2024Fecal Occult Blood /, 07/19/2022dvance Directive Rgtzatcmuo34/01/2025Medicare Advantage Annual Wellness Visit06/04/2024ovid-19 Vaccine ( season) 508/04/2022, 04/03/2021, 08/25/2020, Additional history existsInfluenza Vaccine (#1), 04/13/2023, 04/03/2022, Additional history existsDiabetes Tegaffewq01/16/959958/, 05/15/2024, 03/31/2024, Additional history existsLipid Inmuisocv89/08/308912/01/2024, 04/13/2023RSV Vaccine (1 - 1- dose 75+ series)2029Shingrix XpduldoVvqsabjwr85/30/2018, 12/21/2017, 07/25/2015Pneumococcal Vaccine: 50+Ganecxyhs28/21/2020, 02/23/2020, 04/04/2019 Bone Density NqskvqpahWilitaobs67/24/2024, 12/04/2019 Procedures Procedure NamePriorityDate/TimeAssociated DiagnosisCommentsEXTERNAL LAB 03/27/2025 4:26 PM EDT COMPREHENSIVE METABOLIC HZNBCYznptjb61/16/2025 9:46 AM EDT Iron deficiency anemia, unspecified iron deficiency anemia type IMMUNOASSAY, FECAL OCCULT DCAXYSzflvnx18/15/2023 12:00 PM EST Iron deficiency anemia, unspecified iron deficiency anemia type from Last 3 Months or Most Recently Relevant to Health Maintenance Results * EXTERNAL LAB (03/27/2025 4:26 PM EDT) Narrative Authorizing ProviderResult TypeResult StatusExternal Provider PA-CLABORATORY Final Result * COMPREHENSIVE METABOLIC PANEL (09/17/2024 9:46 AM EDT)ComponentValueRef Range Test MethodAnalysis TimePerformed AtPathologist SignatureProtein, Total6.96.3 - 8.0 g/dL09/17/2024 10:37 AM [facility]TNOR[facility]CO[facility] LABAlbumin 4.33.9 - 4.9 g/dL09/17/2024 10:37 AM EDTNORTRE[facility] Calcium, Total10.18.5 - 10.2 mg/dL09/17/2024 10:37 AM EDTNORTREYNOL[facility] LABBilirubin, Total0.50.2 - 1.3 mg/dL09/17/2024 10:37 AM EDT [facility] LABAlkaline Oreixznwikr95729 - 123 U/L 09/17/2024 10:37 AM EDTNORTOAST [facility] KHNTDA0541 - 35 U/L 09/17/2024 10:37 [facility] BKHMGY580 - 38 U/L 09/17/2024 10:37 [facility] ZKLZbhxpla0415 - 99 mg/dL09/17/2024 10:37 AM [facility] LABComment: The [place] Diabetes Association (ADA) provides guidance for cutoff [...] Standards of Medical Care in Diabetes 2016, [place] Diabetes Association. Diabetes Care. 2016.39(Suppl 1). KUY166 - 21 mg/dL09/17/2024 10:37 AM [facility] Creatinine0.830.58 - 0.96 mg/dL09/17/2024 10:37 AM [facility] NUIBrthxx978804 - 144 mmol/L09/17/2024 10:37 AM [facility] LABPotassium4.33.7 - 5.1 mmol/L09/17/2024 10:37 AM [facility] JSPCutifwga60430 - 107 mmol/L09/17/2024 10:37 AM [facility] AFTKA54975 - 30 mmol/L09/17/2024 10:37 AM [facility] LABAnion Pgt466 - 15 mmol/L09/17/2024 10:37 AM [facility] LABEstimated Glomerular Filtration Rate76 >=60 mL/min/1.73m 09/17/2024 10:37 AM [facility] LABComment:Estimated Glomerular Filtration Rate (eGFR) is calculated [...] VolumeCollection TimeReceived TimeBloodBLOOD SPECIMEN / UnknownVenipuncture / Grbbamq7309/17/2024 9:46 AM EDT09/17/2024 9:46 AM EDT Narrative Authorizing ProviderResult TypeResult StatusSuzie CONWAY-CLABORATORYFinal ResultPerforming OrganizationAddressCity/State/ZIP CodePhone Number [facility] [address] [place] [address] * FECAL OCCULT BLOOD TEST (07/19/2022 12:00 PM EST)ComponentValueRef RangeTest MethodAnalysis TimePerformed AtPathologist SignatureOccult Blood, Stool YwalebmyJsdpfspu13/20/2023 10:17 AM ESTTHE [facility] Specimen (Source)Anatomical Location / LateralityCollection Method / Volume Collection TimeReceived TimeStool RandomSTOOL SPECIMEN / Wgidiku2307/19/2022 12:00 PM EST07/22/2022 3:14 AM EST Narrative [facility] - 07/24/2022 10:17 AM EST This test was developed and its performance characteristics determined by [facility]'s [facility] [place] (- [facility]). It has not been cleared or approved by the FDA. -[facility] is regulated under CLIA as qualified to perform high-complexity testing. This test is used for clinical purposes. It should not be regarded as investigational or for research. Authorizing ProviderResult TypeResult StatusBrdav Vital MDLABORATORY Final ResultPerforming OrganizationAddressCity/State/ZIP CodePhone Number [facility] [address] [address], from Last 3 Months or Most Recently Relevant to Health Maintenance Insurance Care Teams Team MemberRelationshipSpecialtyStart DateEnd Date Pedro Herrera DO [address] [place] [address] PCP - GeneralFamily Medicine06/16/22 Gabo Pearce MD [address] [place] [id number] Family Medicine06/21/22
--- OUTSIDE RECORDS SUMMARY | 2025-04-06 07:46 | XMS_ITS | Clinical Summary ---
Author Organization [facility] Address [id number] [place] [address] Care Team Providers Care Make Up Worker Name Role Phone Pedro Herrera DO Primary Care Provider Allergies No known active allergies Medications MedicationSigDispense QuantityRefillsLast FilledStart DateEnd DateStatus biotin 10,000 mcg capsule 1 capsule.Active calcium citrate (CALCITRATE) 200 mg (950 mg) tablet Take 1 tablet (200 mg total) by mouth in the morning and 1 tablet (200 mg total) at noon and 1 tablet (200 mg total) before bedtime.Active xvvlrrqg-dsn-NB-lycopen-lutein (CENTRUM SILVER) 0.4 mg-300 mcg- 250 mcg [...] MOUTH IN THE MORNING 90 tablet 5Active Active Problems ProblemNoted DateDiagnosed IumtRstwakrhojzm18/10/2023Status post right knee hmaacvtszrf43/11/6253Jrvyxcheol86/10/2023Localized osteoarthritis of right knee 01/11/2023Obesity (BMI 30-39.9)01/03/2023Mixed bvxowxccchowgl97/24/2022 Eknwbgwamr93/16/8794Mvmpeowepbsgfr11/31/2021Osteoarthritis of knee12/27/2020 Difficulty zszgmet7612/16/2020dema of foot10/17/2020ersistent evyesppj26/16/2021 Iron deficiency sghnln7008/29/2020Urinary tuzcpqwintcf63/26/2021Impaired fasting ttwkyti6308/27/2020ontracture, right ankle03/01/2020Primary ovarian failure 01/19/2020Morton's neuroma of right foot12/18/2019Arthritis of right knee 08/26/2019Primary osteoarthritis of left knee01/17/2018Obstructive sleep apnea 09/27/2017Chronic rvxqwhg9706/06/2017Arthralgia of lower leg10/23/2016Sleep epbapqur95/22/2016Vitamin D mfufetkvwj22/18/2016Insulin wbctkfmagc75/17/2016 Peripheral venous /17/2016Urge incontinence of urine07/21/2015 Resolved Problems ProblemNoted DateDiagnosed DateResolved DatePain in right knee10/23/2016 01/17/20241983Fusmzmb33 Encounters DateTypeDepartmentCare VvxrWnsrzvpjmay41/30/6514Gxbvfa96/22/2025Orders Only [facility] [address] [place] [address] Ref Prov, Not In System 03/17/20250793Ukiasc12/02/2025Refill [facility] [address] [place] [address] Pedro Herrera, DO from Last 3 Months Immunizations ImmunizationAdministration DatesNext DueCOVID-19, mRNA, LNP-S, PF, 100mcg/0.5mL Dose07/29/2020,07/28/2020Hep B / HIB08/13/2008,11/28/2007Influenza (IM) Preservative Free06/22/2017Influenza High Dose Preservative Free IM03/31/2024 Influenza Vaccine, Quadrivalent, Dsktnahkfp24/10/2023,04/03/2022Influenza, High- dose, Ydudkvgmesbu43/15/2021Influenza, Im Trivalent Mwcqfyduemlp70/15/2013 Influenza, Injectable, quadrivalent (PF)02/21/2021,02/23/2020,04/01/2018, 03/11/2018Influenza, Trivalent, Wgqnetwbqe67/01/2019,04/03/2019Influenza, Odbdnlvyiwy03/31/2022neumococcal Conjugate 13-Ppttto7302/23/2020Pneumococcal Bqwinrcxcqfgat84/21/2020,04/04/2019Td (adult), 5 Lf tetanus toxoid, preservative free, iyoixehc32/21/2014Zoster Live07/25/2015Zoster Vaccine Recombinant 03/03/2018,12/21/2017 Family History Medical HistoryRelationNameCommentsNo Known ProblemsDaughter 1Multiple sclerosis Daughter 2Alzheimer's diseaseFatherLeukemiaFatherPneumoniaFatherCovidHodgkin's lymphomaMotherdied at age 34No Known ProblemsSisterRelationNameStatusComments Daughter 1AliveDaughter 2AliveFatherDeceasedHalf Brother 1AliveHalf Brother 2 AliveMotherDeceasedSisterAlive Social History Tobacco UseTypesPacks/DayYears UsedDateSmoking Tobacco: NeverSmokeless Tobacco: Never Tobacco Cessation:Counseling Given: Not Answered Alcohol UseStandard Drinks/WeekCommentsYes0 (1 standard drink = 0.6 oz pure alcohol)OccasionalAHC UtilitiesAnswerDate RecordedIn the past 12 months has the [employer], gas, oil, or water [employer] threatened to shut off services in your home?No10/10/2023Social Connection and Isolation PanelAnswerDate RecordedIn a typical week, how many times do you talk on the phone with family, friends, or neighbors?More than three times a week09/28/2022How often do you get together with friends or relatives?Twice a week09/28/2022How often do you attend temple or religion services?More than 4 times per year09/28/2022o you belong to any clubs or organizations such as temple groups, unions, fraternal or athletic perla ups, or school groups?No09/28/2022How often do you attend meetings of the clubs or organizations you belong to?Never09/28/2022re you , , , , never , or living with a partner?Ifhcafu3609/28/2022 AUDIT-CAnswerDate RecordedQ1: How often do you have [...] and heating?Not hard at all09/28/2022 PHQ-2AnswerDate RecordedTotal Cxgoa713Finalta [facility] [place] of Occupational Health - Occupational Stress [...] a household?No09/28/2022hildcareAnswerDate RecordedDo problems getting child care giver make it difficult for you to work [...] InformationValueDate RecordedSex Assigned at BirthNot on fileLegal GplHxwivp39/06/2015 11:48 AM EDT Gender IdentityNot on fileSexual OrientationNot on file Last Filed Vital Signs Vital SignReadingTime TakenCommentsBlood Cepfmosq224/8212/11/2024 1:35 PM EDT Dnqoz456310/03/2024 10:30 AM FHEHmskaxqenfo26.1 ??C (97 ??F)10/03/2024 10:30 AM EDTRespiratory Imms918110/03/2024 10:30 AM EDTOxygen Obhwsbbsrw50%10/03/2024 10:30 AM EDTInhaled Oxygen Concentration--Lkjepf41.1 kg (187 lb 11.2 oz)12/11/2024 1:35 PM FTVUrbopv850.5 cm (5' 2 )12/11/2024 1:35 PM EDTBody Mass Index34.33 12/11/2024 1:35 PM EDT Plan of Treatment DateTypeDepartmentCare Team (Latest Contact Info)Oqpkyfwrgpd92/04/2025 8:45 AM ESTAppointment [facility] [address] [place] [phone] 04/23/2025 1:15 PM ESTOffice Visit [facility] [address] [place] [phone] Pedro Herrera, DO [address] [place] [address] 12/15/2025 3:00 PM EDTOffice Visit [facility] [address] [place] [address] Health MaintenanceDue DateLast DoneCommentsDTaP,Tdap and Td Vaccines (2 - Td or Tdap)COVID-19 Vaccine ( season)2025 01/12/2022, 04/03/2021, 08/25/2020, Additional history existsInfluenza Vaccine /, 04/13/2023, 04/03/2022, Additional history existsMammogram , 04/03/2023, 03/06/2022, Additional history existsAdult BMI Follow Up Plan/07/2024Tobacco Ctpklosmh13/dult BMI Xycczlnif90Depression Fmkjbexlk98Fall Risk Qzwlfjyvd80Medicare Annual Wellness Visit, 12/11/2023, 09/28/2022RSV ( or age 60+ yrs) (1 - 1-dose 75+ series) 02/02/20298917Fkigewozbnu38, 10/13/2020, 10/06/2013, Additional history existsZoster (Shingles) HszkchaQdpumfzee23/30/2018, 12/21/2017, 07/25/2015 Medical Devices Not on file Procedures Procedure NamePriorityDate/TimeAssociated DiagnosisCommentsHM COLONOSCOPYRoutine 03/25/2025 10:06 AM EDTHM AQVSANPJRROJpnduto67/30/2024 11:12 AM EDT from Last 3 Months [...] DO [address] [place] [address] PCP - GeneralFamily Medicine10/12/20
--- OUTSIDE RECORDS SUMMARY | 2025-04-06 07:46 | XMS_ITS | Clinical Summary ---
Author Organization [facility] Healthcare Address [address] [place] [address] Care Team Providers Care Nanoelectronics Engineer Name Role Phone Pedro Herrera MD Primary Care Provider + [phone] Allergies No known active allergies Medications MedicationSigDispense QuantityRefillsLast FilledStart DateEnd DateStatus metFORMIN (Glucophage) 500 MG tablet 11/28/2022ctive oxybutynin XL (Ditropan-XL) 15 MG 24 hr tablet 1 (one) time each day at the same time.Active qwyrdlqccqvm-yiio-ieisbftf-folic acid (Centrum Silver, geriatric,) tablet as directed OrallyActive biotin 69475 MCG tablet 1 capsule 1 (one) time [...] by mouth.Active cholecalciferol (Vitamin D-3) 350 MCG (87838 UT) capsule Take 14,000 Units by mouth in the morning.Active ferrous sulfate 325 (65 Fe) MG tablet Take 325 mg by mouth in the morning. Take with meals.06/15/2022ctive amoxicillin (Amoxil) 500 MG tablet Indications:S/P total knee arthroplasty, right4 tabs PO once 30-60 mins before procedure with food 4 tablet 5Active Active Problems ProblemNoted DateDiagnosed DateStatus post right knee diubbzzhvuu98/11/2023 Obesity (BMI 30-39.9)01/03/2023Unilateral primary osteoarthritis, right knee 3Persistent disorder of initiating or maintaining sleep01/03/2023 Omfitazrutp90/02/2023Mixed papfipowrkehla76/24/9029Ahtuejjara13/16/2021 Pdzklcssdbfukk22/31/2021Osteoarthritis of knee12/27/2020ifficulty walking 12/16/2020dema of foot10/17/20207624Tdwumuwz32/16/2021Iron deficiency anemia 08/29/2020Impaired fasting bhcibqz2708/27/2020Urinary koximzfceszp81/26/2021 Contracture, right ankle03/01/2020Primary ovarian dagirbm6301/19/2020Morton's neuroma of right foot12/18/2019Arthritis of right knee08/26/2019Long term current use of bkndgfx3403/12/2019Osteoarthritis of left knee01/17/2018Obstructive sleep apnea09/27/2017Chronic lafpkdg4706/06/2017Chronic fatigue utcphqsr45/03/2018 Arthralgia of lower leg10/23/2016Pain in right knee10/23/2016Vitamin D xdznyuywox21/18/2016Insulin jkpvxkzusb31/17/2016Chronic diastolic heart failure 07/21/2015Peripheral venous gptyshfnhppgp73/17/0806Zlypkag26/17/2016Urge incontinence of urine07/21/2015 Encounters DateTypeDepartmentCare SyruEogwvckyttn70/14/2025 8:55 AM EDTAncillary Procedure [facility] [place] [address] 03/17/2025 8:30 AM EDTOffice Visit [facility] [place] [address] Jr. Micheal Trujillo, DO Acute pain of right knee; Ceatvvegjb73/14/2025amboo flowsheet [facility] [place] [address] Jr. Micheal Trujillo, DO 03/17/20257741Fhcjzm66/11/2025Telephone [facility] [address] [place] [address] Jr. Micheal Trujillo, DO dental appointmentfrom Last 3 Months Immunizations ImmunizationAdministration DatesNext DueHib / Hep B008/13/2008,11/28/2007 Influenza, High-dose Seasonal, Quadrivalent, Preservative Free02/16/2021 Influenza, Zljpchueuzi33/31/2022Influenza, injectable, quadrivalent, preservative free02/21/2021,02/23/2020,04/01/2018,03/11/2018Influenza, seasonal, cnafpgkqzj55/15/2013Influenza, seasonal, injectable, preservative free06/22/2017 Influenza, trivalent, fwvetldrjs70/01/2019,04/03/2019Moderna SARS-CoV-2 Qxkikkghinx18/24/2021Pneumococcal Conjugate PCV 13002/23/2020Pneumococcal Polysaccharide VBQV2105,04/04/2019Td (adult), 5 Lf tetanus toxoid, preservative free, mlgeyatn57/21/2014Zoster, Tmmiexmbrhr12/30/2018,12/21/2017 Zoster, live07/25/2015 Family History Medical HistoryRelationNameCommentsNo Known [...] BS)3CommentsUnknownSex and Gender InformationValueDate RecordedSex Assigned at XpbjdMbcwad21/07/2023 8:29 PM EDTLegal SexFemale 08/16/2022 6:38 PM EDTGender JbicsjzwXukdjz73/15/2023 6:38 PM EDTSexual OrientationNot on fileOccupationIndustryJob Start DateJob End DateTax 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 Micheal Trujillo C, DO [address] [facility] [address] [place] [address] Health MaintenanceDue DateLast DoneCommentsCT Okfexctbdkje1954FIT-DNA 02/02/19544083Ntrmvzbfyeiir1954Hepatitis B Vaccines (3 of 3 - 19+ 3-dose series)10/08/200803/05/2009, 11/28/2007DTaP/Tdap/Td Vaccines (2 - Tdap) Mammogram/, 12/18/2018, 12/18/2018, Additional history jkmmboYJG95/, 07/19/2022FOBT07/19/2023 07/19/20220597Iuxkavkrdvq64/05/202405/10/2013Colorectal Cancer Wcufuoadm60/05/2024 COVID-19 Vaccine ( - season)/04/2022, 04/03/2021, 08/25/2020, Additional history existsInfluenza Vaccine (#1)/, 04/13/2023, 04/03/2022, Additional history existsHIB VaccinesAged Out08/13/2008, 11/28/2007No longer eligible based on patient's age to complete this topic Pneumococcal Vaccine: 65+ TgbfjNaywskrhb06/21/2020, 02/23/2020, 04/04/2019HPV VaccinesAged OutNo longer eligible based on patient's age to complete this topic Hepatitis A VaccinesAged OutNo longer eligible based on patient's age to complete this topicIPV VaccinesAged OutNo longer eligible based on patient's age to complete this topicMeningococcal B VaccineAged OutNo longer eligible based on patient's age to complete this topicMeningococcal VaccineAged OutNo longer eligible based on patient's age to complete this topicRotavirus VaccinesAged Out No longer eligible based on patient's age to complete this topic Procedures Procedure NamePriorityDate/TimeAssociated DiagnosisCommentsXR KNEE 1-2 VIEWS UTNKOCagyzqq90/14/2025 8:50 AM EDT Acute pain of right knee BI MAMMOGRAM SCREENING TOMOSYNTHESIS SMOIDQXYWWixjogg91/18/2020 CVVIPKMUGUJPwyxvzp26/05/2014 12:00 PM EDT from Last 3 Months [...] arthroplasty. Authorizing ProviderResult TypeResult StatusJr. Micheal Trujillo [facility] XR PROCEDURESFinal Result * Bilateral screening mammogram with tomosynthesis (01/20/2020)Anatomical Region LateralityModalityBreastBilateralMammographySpecimen (Source)Anatomical Location / LateralityCollection Method / VolumeCollection TimeReceived Time Narrative 01/20/2020 12:00 AM EDT PERFORMED AT [facility] LOCATION:[facility] Patient: ? ALLAN Campbell ? Exam Date: ? 01/20/2020 : ? 1955 ?Gender:F ? Ordering : ? DR ERNST PINTO . ? Admission #: ? [id number] Family : ?Order #: ? [id number] ? CLICK HERE TO VIEW EXAM RADIOLOGY [...] cancer at age 33. LOCATION: ? [facility] BREAST COMPOSITION: ? Heterogeneously dense ?which may [...] Note CONVERSION, GENERIC - 12/08/2022 PERFORMED AT [facility] LOCATION:[place] [address] Patient: ALLAN Campbell Exam Date: 01/20/2020 : 1955 Gender:F Ordering : DR ERNST PINTO . Admission #: [id number] Family : Order #: [id number] CLICK HERE TO VIEW EXAM RADIOLOGY REPORT [...] hodgkins cancer at age 33. LOCATION: [facility] BREAST COMPOSITION: Heterogeneously dense which may [...] on 01/20/2020 at 11:27 Authorizing ProviderResult TypeResult StatusErnst Pinto MDIMG BI PROCEDURES Final Result * Colonoscopy (10/06/2013 12:00 PM EDT)Anatomical RegionLateralityModality EndoscopySpecimen (Source)Anatomical Location / LateralityCollection Method / VolumeCollection TimeReceived Time10/06/2013 12:00 PM EDT Narrative 10/06/2013 12:00 PM EDT PERFORMED AT [facility] LOCATION:[id number] Negative Procedure Note CONVERSION, GENERIC - 10/19/2022 PERFORMED AT [facility] LOCATION:[id number] Negative Authorizing ProviderResult TypeResult StatusErnst Pinto MDENDOSCOPY PROCEDURE ORDERABLESFinal Result from Last 3 Months or Most Recently Relevant to Health Maintenance Insurance * Guarantor: Ene Lemus TypeRelation to PatientDate of BirthPhone Billing AddressPersonal/NrbufwFgik1955 [address] [address] Care Teams Team MemberRelationshipSpecialtyStart DateEnd Date Pedro Herrera MD [address] [facility], [place] [address] PCP - GeneralFamily Kgiaxunb03/8/25
--- OUTSIDE RECORDS SUMMARY | 2025-04-06 07:46 | XMS_ITS | Encounter Summary ---
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 Name Role Phone Pedro Herrera DO Primary Care Provider Gabo Pearce MD Unavailable [phone] Source Comments In the event this information is protected by the Federal Confidentiality of Alcohol and Drug AbusePatient Records regulations: The Federal rules restrict any use of the information to criminally investigate or prosecute any alcohol or drug abuse patient.[facility] Reason for Visit * ReasonCommentsOutside Labs Results Encounter Details DateTypeDepartmentCare Team (Latest Contact Info)Ctjktsngvlh53/24/2025Telephone Hematology/Oncology [address] [place] [address] [place] [address] Rosa Aguiar RN Outside Labs Results Social History Tobacco UseTypesPacks/DayYears UsedDateSmoking Tobacco: NeverPassive Smoke Exposure: NeverSmokeless Tobacco: NeverAlcohol UseStandard Drinks/WeekComments Yes0 (1 standard drink = 0.6 oz pure alcohol)occasionalPHQ-2AnswerDate Recorded PHQ-2 [id number] Deprivation IndexAnswerDate RecordedNational Score (1-100), lower number is lower vcaw523403/31/2024State Score (1-10), lower number is lower [id number] from: https://www.neighborhoodatlas.[facility]/. Last address used for tbbs[address] 4CommentsNoSex and Gender InformationValueDate RecordedSex Assigned at BirthNot on fileLegal SexFemale 04/30/2013 11:04 AM ESTGender IdentityNot on fileSexual OrientationNot on file documented as of this encounter Miscellaneous Notes * Telephone Encounter - Rosa Aguiar RN - 03/27/2025 2:41 PM EDT Pt feeling tired and fatigued. She will come in, as previously scheduled for IV Iron. Did not feel the need to come sooner. Rosa Aguiar RN * Telephone Encounter - Rosa Aguiar RN - 03/27/2025 2:37 PM EDT [facility] labs reviewed pt MM. Pt becoming more anemic, iron studies borderline. Wants to see how pt feeling. left for pt with information above. Asked to call back to discuss Rosa Aguiar RN documented in this encounter Plan of Treatment DateTypeDepartmentCare Team (Latest Contact Info)Rkbkhnkgbos43/17/2025 9:00 AM ESTVisit (SP) Office Hematology/Oncology [address] [place] [address] [place] [address] Soraya Madison APRN.F[facility] H [employer]ENT [address] [facility] [place] [address] 3 month follow up after lab04/20/2025 9:30 AM ESTInfusion Center Hematology/Oncology [facility] [place] [address] 3 month follow up after labdocumented as of this encounter Visit Diagnoses Not on filedocumented in this encounter Care Teams Team MemberRelationshipSpecialtyStart DateEnd Date Pedro Herrera DO [address] [place] [address] PCP - GeneralFamily Medicine06/16/22 Gabo Pearce MD [address] [place] [address] Family Medicine06/21/22documented as of this encounter
== END 2025-04-06 07:45 | disposition home or self-care (01) ==
LOC: MAMMO 07:44
PROVIDERS: PCP Family Medicine; Visit Provider Family Medicine
DX: Z12.31 Encounter for screening mammogram for malignant neoplasm of breast (principal); Z80.7 Family history of other malignant neoplasms of lymphoid, hematopoietic and related tissues
CPT/HCPCS: 77063; 77067